=== PATIENT | male | born 1935 | race Caucasian/White ===

== ENCOUNTER 2017-07-11 16:36 | Inpatient (IN) | payer MEDICARE ==
[~2017-07-11] VITALS: Ht 177.8 cm; Wt 68.0 kg
[2017-07-11] MEDS ORDERED: Cefepime HCl 2 GM in NS 110 ML IV STA (16:37)
[2017-07-11 16:40] VITALS: BP 137/86
[2017-07-11] MEDS ORDERED: Vancomycin 1 GM in NS 275 ML IV ONE (16:45)
--- NOTE | 2017-07-11 17:02 | Emergency Room Report ---
History of Present Illness General Chief Complaint: General Complaint Source: Patient, EMS Present Illness HPI The patient was brought in by BLS from a long-term facility. Allegedly he has MRSA in the urine. The patient states he somewhat anxious but aside from that is denying any pain, fevers, nausea, vomiting, diarrhea. The patient had a Vo catheter in the past but Foleys been removed at this time. He states he is able to urinate on his own without difficulty or pain. H/O muscle weakness, DM type 2, BPH, HTN Allergies: Coded Allergies: No Known Allergies (Unverified , 07/11/17) Patient History Past Medical History: see triage record Social History Narrative [place] [facility] treatment (not full code) Reviewed Nursing Documentation: PMH: Agreed, PSxH: Agreed Nursing Documentation-PMH Past Medical History: No History, Except For Hx Hypertension: Yes - High cholesterol Hx Diabetes: Yes Hx Gastrointestinal Problems: Yes - GERD History Of Psychiatric Problem: Yes - Anxiety Hx Neurological Problems: Yes - Muscle weakness/lack of coordination Review of Systems All Other Systems: negative except mentioned in HPI Physical Exam Vital Signs Date Time Temp Pulse Resp B/P (MAP) Pulse Ox O2 Delivery O2 Flow Rate FiO2 07/11/17 16:30 98.1 87 18 146/89 97 Room Air Sp02 EP Interpretation: reviewed, normal General Appearance: no apparent distress, GCS 15, Chronically Ill Head: normocephalic, atraumatic Eyes: bilateral eye normal inspection, bilateral eye PERRL ENT: moist mucus membranes Neck: supple Respiratory: lungs clear, normal breath sounds Cardiovascular #1: regular rate, rhythm Cardiovascular #2: 2+ radial (R) Gastrointestinal: normal inspection, normal bowel sounds, non tender, no mass, non-distended, scaphoid Genitourinary: normal inspection Musculoskeletal: back normal, normal range of motion Neurologic: alert, motor strength/tone normal, DTRs symmetric, sensory intact, oriented - X2 Psychiatric: mood/affect normal Skin: normal inspection, warm/dry Medical Decision Making Diagnostic Impression: Primary Impression: UTI (urinary tract infection) Qualified Codes: N30.00 - Acute cystitis without hematuria Additional Impression: Renal insufficiency ER Course Patient sent allegedly with MRSA in the urine. Patient's needs evaluation with labs including urinalysis. The patient has multiple comorbidities and needs blood cultures and IV hydration with broad-spectrum antibiotic coverage. Labs significant for significant pyuria. Renal insufficiency, upper limit normal lactic acid. CXR chronic changes, EKG without injury. Patient is somewhat improved however needs antibiotic coverage. Admit med Dr. Tipton. Laboratory Tests Test 07/11/17 16:50 07/11/17 17:10 07/11/17 19:21 07/12/17 04:35 White Blood Count 9.5 K/UL (4.8-10.8) 8.8 K/UL (4.8-10.8) Red Blood Count 5.11 M/UL (4.70-6.10) 4.63 M/UL (4.70-6.10) L Hemoglobin 13.7 G/DL (14.2-18.0) L 12.5 G/DL (14.2-18.0) L Hematocrit 43.9 % (42.0-52.0) 40.2 % (42.0-52.0) L Mean Corpuscular Volume 86 FL (80-99) 87 FL (80-99) Mean Corpuscular Hemoglobin 26.8 PG (27.0-31.0) L 27.0 PG (27.0-31.0) Mean Corpuscular Hemoglobin Concent 31.2 G/DL (32.0-36.0) L 31.1 G/DL (32.0-36.0) L Red Cell Distribution Width 16.0 % (11.6-14.8) H 16.0 % (11.6-14.8) H Platelet Count 254 K/UL (150-450) 227 K/UL (150-450) Mean Platelet Volume 8.0 FL (6.5-10.1) 7.7 FL (6.5-10.1) Neutrophils (%) (Auto) 62.1 % (45.0-75.0) 65.1 % (45.0-75.0) Lymphocytes (%) (Auto) 23.4 % (20.0-45.0) 19.2 % (20.0-45.0) L Monocytes (%) (Auto) 9.2 % (1.0-10.0) 10.9 % (1.0-10.0) H Eosinophils (%) (Auto) 3.7 % (0.0-3.0) H 3.8 % (0.0-3.0) H Basophils (%) (Auto) 1.6 % (0.0-2.0) 1.1 % (0.0-2.0) Prothrombin Time 10.7 SEC (9.30-11.50) Prothrombin Time INR 1.0 (0.9-1.1) PTT 30 SEC (23-33) Sodium Level 145 MMOL/L (136-145) 147 MMOL/L (136-145) H Potassium Level 4.4 MMOL/L (3.5-5.1) 3.9 MMOL/L (3.5-5.1) Chloride Level 111 MMOL/L (98-107) H 112 MMOL/L (98-107) H Carbon Dioxide Level 26 MMOL/L (21-32) 28 MMOL/L (21-32) Anion Gap 8 mmol/L (5-15) 7 mmol/L (5-15) Blood Urea Nitrogen 23 mg/dL (7-18) H 20 mg/dL (7-18) H Creatinine 1.5 MG/DL (0.55-1.30) H 1.3 MG/DL (0.55-1.30) Estimate Glomerular Filtration Rate mL/min (>60) mL/min (>60) Glucose Level 123 MG/DL (74-106) H 82 MG/DL (74-106) Lactic Acid Level 2.10 mmol/L (0.66-2.22) 2.10 mmol/L (0.66-2.22) Calcium Level 9.1 MG/DL (8.5-10.1) 8.9 MG/DL (8.5-10.1) Total Bilirubin 0.3 MG/DL (0.2-1.0) 0.4 MG/DL (0.2-1.0) Aspartate Amino Transferase (AST) 17 U/L (15-37) 11 U/L (15-37) L Alanine Aminotransferase (ALT) 21 U/L (12-78) 16 U/L (12-78) Alkaline Phosphatase 77 U/L (46-116) 71 U/L (46-116) Total Creatine Kinase 25 U/L (26-308) L Troponin I 0.020 ng/mL (0.000-0.056) Pro-B-Type Natriuretic Peptide 3199 pg/mL (0-125) H Total Protein 6.8 G/DL (6.4-8.2) 6.3 G/DL (6.4-8.2) L Albumin 3.0 G/DL (3.4-5.0) L 2.7 G/DL (3.4-5.0) L Globulin 3.8 g/dL 3.6 g/dL Albumin/Globulin Ratio 0.8 (1.0-2.7) L 0.8 (1.0-2.7) L Urine Color Pale yellow Urine Appearance Cloudy Urine pH 6 (4.5-8.0) Urine Specific [place] 1.010 (1.005-1.035) Urine Protein 2+ (NEGATIVE) H Urine Glucose (UA) Negative (NEGATIVE) Urine Ketones Negative (NEGATIVE) Urine Occult Blood 5+ (NEGATIVE) H Urine Nitrite Positive (NEGATIVE) H Urine Bilirubin Negative (NEGATIVE) Urine Urobilinogen Normal MG/DL (0.0-1.0) Urine Leukocyte Esterase 3+ (NEGATIVE) H Urine RBC 10-15 /HPF (0 - 0) H Urine WBC Tntc /HPF (0 - 0) H Urine Squamous Epithelial Cells None /LPF (NONE/OCC) Urine Bacteria Moderate /HPF (NONE) H Triglycerides Level 43 MG/DL (0-200) Cholesterol Level 107 MG/DL (< 200) LDL Cholesterol 56 mg/dL (<100) HDL Cholesterol 42 MG/DL (40-60) Cholesterol/HDL Ratio 2.5 (3.3-4.4) L Thyroid Stimulating Hormone (TSH) 1.793 uiU/mL (0.360-3.740) EKG Diagnostic Results Rate: normal Rhythm: NSR ST Segments: no acute changes Rhythm Strip Diag. Results EP Interpretation: yes Rhythm: NSR, no PVC's, no ectopy Chest X-Ray Diagnostic Results Chest X-Ray Diagnostic Results : Chest X-Ray Ordered: Yes # of Views/Limited/Complete: 1 View Indication: Other Interpretation: no consolidation, no effusion, no pneumothorax, no acute cardiopulmonary disease Impression: No acute disease Electronically Signed by: Electronically signed by Zeke Arthur MD Status: improved Disposition: ADMITTED INPATIENT Condition: Serious Zeke Arthur M.D. Jul 11, 2017 17:02
[2017-07-11 17:18] LABS: BASOPHILS % (AUTO) 1.6 % (0.0-2.0); EOSINOPHILS % (AUTO) 3.7 % (0.0-3.0); LYMPHOCYTES % (AUTO) 23.4 % (20.0-45.0); MEAN CORPUSCULAR HEMOGLOBIN 26.8 PG (27.0-31.0); MEAN CORPUSCULAR HGB CONC 31.2 G/DL (32.0-36.0); MEAN CORPUSCULAR VOLUME 86 FL (80-99); MONOCYTES % (AUTO) 9.2 % (1.0-10.0); NEUTROPHILS % (AUTO) 62.1 % (45.0-75.0); PLATELET COUNT 254 K/UL (150-450); RED BLOOD COUNT 5.11 M/UL (4.70-6.10); WHITE BLOOD COUNT 9.5 K/UL (4.8-10.8)
[2017-07-11] MEDS ORDERED: Cefepime 2gm ONE (17:20)
[2017-07-11] MEDS ORDERED: PANTOPRAZOLE SO40 MG ORAL (17:25)
[2017-07-11] MEDS ORDERED: MILK OF MA400 MG/51 ORAL (17:25)
[2017-07-11] MEDS ORDERED: METFORMIN HCL500 M1 ORAL (17:25)
[2017-07-11] MEDS ORDERED: AVODART0.5 MG ORAL (17:25)
[2017-07-11] MEDS ORDERED: ATORVASTATIN CA40 MG ORAL (17:25)
[2017-07-11] MEDS ORDERED: TAMSULOSIN HCL0.4 MG ORAL (17:25)
[2017-07-11] MEDS ORDERED: ATIVAN0.5 MG ORAL (17:25)
[2017-07-11] MEDS ORDERED: BISCOLAX10 MG RC (17:25)
[2017-07-11] MEDS ORDERED: MULTIVITAMINS1 EAC8 ORAL (17:25)
[2017-07-11] MEDS ORDERED: DEX4 GLUCO15 GM/59 M PO (17:25)
[2017-07-11] MEDS ORDERED: COLACE100 MG ORAL (17:25)
[2017-07-11] MEDS ORDERED: ELIQUIS5 MG PO (17:25)
[2017-07-11] MEDS ORDERED: MIRALAX17 G2 ORAL (17:25)
[2017-07-11 17:26] LABS: APPEARANCE,URINE CLOUDY; KETONES,URINE NEGATIVE (NEGATIVE); LEUKOCYTE ESTERASE ,URINE 3+ (NEGATIVE); NITRITE,URINE POSITIVE (NEGATIVE); PH,URINE 6 (4.5-8.0); PROTEIN,URINE 2+ (NEGATIVE); UROBILINOGEN,URINE NORMAL MG/DL (0.0-1.0)
[2017-07-11 17:38] LABS: PROTHROMBIN TIME 10.7 SEC (9.30-11.50)
[2017-07-11 17:40] LABS: BACTERIA,URINE MODERATE /HPF; WBC,URINE TNTC /HPF (0 - 0)
[2017-07-11 17:41] LABS: ALANINE AMINOTRANSFERASE 21 U/L (12-78); ALBUMIN/GLOBULIN RATIO 0.8 (1.0-2.7); ANION GAP 8 mmol/L (5-15); ASPARTATE AMINO TRANSFERASE 17 U/L (15-37); CALCIUM 9.1 MG/DL (8.5-10.1); CARBON DIOXIDE 26 MMOL/L (21-32); CHLORIDE 111 MMOL/L (98-107); CREATININE 1.5 MG/DL (0.55-1.30); POTASSIUM 4.4 MMOL/L (3.5-5.1); SODIUM 145 MMOL/L (136-145); TOTAL PROTEIN 6.8 G/DL (6.4-8.2)
[2017-07-11 18:17] LABS: REFLEX LACTIC ACID YES OR NO YES
[2017-07-11 18:20] VITALS: BP 138/81
[2017-07-11] MEDS ORDERED: ACETAMINOPHEN325 M1 ORAL (18:35)
[2017-07-11] MEDS ORDERED: FLEET ENEMA133 ML RECTAL (18:35)
[2017-07-11] MEDS ORDERED: VALIUM5 MG ORAL (18:35)
[2017-07-11] MEDS ORDERED: VITAMIN C500 M1 ORAL (18:35)
[2017-07-11] MEDS ORDERED: GLUCAGON HCL1 MG IM (18:51)
[2017-07-11 19:30] VITALS: BP 127/80
[2017-07-11] MEDS ORDERED: Vancomycin 1gm inj IVPB ONE (20:03)
--- NOTE | 2017-07-11 20:53 | Infectious Diseases Prog Note ---
Assessment/Plan Problems: (1) Sepsis due to urinary tract infection Assessment & Plan: will send blood culture and urine culture, and start vancomycin with cefepime empirically (2) UTI (urinary tract infection) Assessment & Plan: with MRSA, will start vancomycin pending culture (3) Renal insufficiency Assessment & Plan: recommend hydration, and close monitor of renal function Subjective Allergies: Coded Allergies: No Known Allergies (Unverified , 07/11/17) Objective Vital Signs Last 24 Hour Vital Signs Date Time Temp Pulse Resp B/P (MAP) Pulse Ox O2 Delivery O2 Flow Rate FiO2 07/11/17 20:30 80 20 146/70 100 Room Air 07/11/17 18:20 87 16 138/81 99 Room Air 07/11/17 16:40 84 16 137/86 100 Room Air 07/11/17 16:30 98.1 87 18 146/89 97 Room Air Height (Feet): 5 Height (Inches): 10.00 Weight (Pounds): 150 Laboratory Tests Test 07/11/17 16:50 07/11/17 17:10 07/11/17 19:21 White Blood Count 9.5 K/UL (4.8-10.8) Red Blood Count 5.11 M/UL (4.70-6.10) Hemoglobin 13.7 G/DL (14.2-18.0) L Hematocrit 43.9 % (42.0-52.0) Mean Corpuscular Volume 86 FL (80-99) Mean Corpuscular Hemoglobin 26.8 PG (27.0-31.0) L Mean Corpuscular Hemoglobin Concent 31.2 G/DL (32.0-36.0) L Red Cell Distribution Width 16.0 % (11.6-14.8) H Platelet Count 254 K/UL (150-450) Mean Platelet Volume 8.0 FL (6.5-10.1) Neutrophils (%) (Auto) 62.1 % (45.0-75.0) Lymphocytes (%) (Auto) 23.4 % (20.0-45.0) Monocytes (%) (Auto) 9.2 % (1.0-10.0) Eosinophils (%) (Auto) 3.7 % (0.0-3.0) H Basophils (%) (Auto) 1.6 % (0.0-2.0) Prothrombin Time 10.7 SEC (9.30-11.50) Prothromb Time International Ratio 1.0 (0.9-1.1) Activated Partial Thromboplast Time 30 SEC (23-33) Sodium Level 145 MMOL/L (136-145) Potassium Level 4.4 MMOL/L (3.5-5.1) Chloride Level 111 MMOL/L (98-107) H Carbon Dioxide Level 26 MMOL/L (21-32) Anion Gap 8 mmol/L (5-15) Blood Urea Nitrogen 23 mg/dL (7-18) H Creatinine 1.5 MG/DL (0.55-1.30) H Estimat Glomerular Filtration Rate mL/min (>60) Glucose Level 123 MG/DL (74-106) H Lactic Acid Level 2.10 mmol/L (0.66-2.22) 2.10 mmol/L (0.66-2.22) Calcium Level 9.1 MG/DL (8.5-10.1) Total Bilirubin 0.3 MG/DL (0.2-1.0) Aspartate Amino Transf (AST/SGOT) 17 U/L (15-37) Alanine Aminotransferase (ALT/SGPT) 21 U/L (12-78) Alkaline Phosphatase 77 U/L (46-116) Total Creatine Kinase 25 U/L (26-308) L Troponin I 0.020 ng/mL (0.000-0.056) Pro-B-Type Natriuretic Peptide 3199 pg/mL (0-125) H Total Protein 6.8 G/DL (6.4-8.2) Albumin 3.0 G/DL (3.4-5.0) L Globulin 3.8 g/dL Albumin/Globulin Ratio 0.8 (1.0-2.7) L Urine Color Pale yellow Urine Appearance Cloudy Urine pH 6 (4.5-8.0) Urine Specific [place] 1.010 (1.005-1.035) Urine Protein 2+ (NEGATIVE) H Urine Glucose (UA) Negative (NEGATIVE) Urine Ketones Negative (NEGATIVE) Urine Occult Blood 5+ (NEGATIVE) H Urine Nitrite Positive (NEGATIVE) H Urine Bilirubin Negative (NEGATIVE) Urine Urobilinogen Normal MG/DL (0.0-1.0) Urine Leukocyte Esterase 3+ (NEGATIVE) H Urine RBC 10-15 /HPF (0 - 0) H Urine WBC Tntc /HPF (0 - 0) H Urine Squamous Epithelial Cells None /LPF (NONE/OCC) Urine Bacteria Moderate /HPF (NONE) H Current Medications Medications (Trade) Dose Ordered Sig/Amaya Route PRN Reason Start Time Stop Time Status Last Admin Dose Admin Sodium Chloride 1,000 ml @ 300 mls/hr Q3H20M IV 07/11/17 16:45 08/10/17 16:44 07/11/17 19:44 Margi Haque M.D. Jul 11, 2017 20:53
[2017-07-11] MEDS ORDERED: Miralax 17gm pkt ORAL PRN (21:15)
[2017-07-11] MEDS ORDERED: LORazepam Inj 2mg/ml 1ml IV PRN (21:15)
[2017-07-11] MEDS ORDERED: Zolpidem 5mg tab ORAL PRN (21:15)
[2017-07-11] MEDS ORDERED: Mylanta II UD 30ml ORAL PRN (21:15)
[2017-07-11 22:00] VITALS: BP 127/65
[2017-07-11] MEDS: Tamsulosin 0.4mg cap ORAL SCH (22:55)
[2017-07-12] VITALS: BP 132/69
[2017-07-12 04:00] VITALS: BP 118/69
[2017-07-12 08:00] VITALS: BP 131/71
[2017-07-12 08:01] LABS: BASOPHILS % (AUTO) 1.1 % (0.0-2.0); EOSINOPHILS % (AUTO) 3.8 % (0.0-3.0); LYMPHOCYTES % (AUTO) 19.2 % (20.0-45.0); MEAN CORPUSCULAR HGB CONC 31.1 G/DL (32.0-36.0); MEAN CORPUSCULAR VOLUME 87 FL (80-99); MEAN PLATELET VOLUME 7.7 FL (6.5-10.1); MONOCYTES % (AUTO) 10.9 % (1.0-10.0); NEUTROPHILS % (AUTO) 65.1 % (45.0-75.0); PLATELET COUNT 227 K/UL (150-450); RED BLOOD COUNT 4.63 M/UL (4.70-6.10); WHITE BLOOD COUNT 8.8 K/UL (4.8-10.8)
[2017-07-12 08:02] LABS: ALANINE AMINOTRANSFERASE 16 U/L (12-78); ALBUMIN/GLOBULIN RATIO 0.8 (1.0-2.7); ANION GAP 7 mmol/L (5-15); ASPARTATE AMINO TRANSFERASE 11 U/L (15-37); CALCIUM 8.9 MG/DL (8.5-10.1); CARBON DIOXIDE 28 MMOL/L (21-32); CHLORIDE 112 MMOL/L (98-107); CREATININE 1.3 MG/DL (0.55-1.30); POTASSIUM 3.9 MMOL/L (3.5-5.1); SODIUM 147 MMOL/L (136-145); TOTAL PROTEIN 6.3 G/DL (6.4-8.2)
[2017-07-12 08:10] LABS: CHOLESTEROL 107 MG/DL (< 200); CHOLESTEROL/HDL RATIO 2.5 (3.3-4.4); THYROID STIMULATING HORMONE 1.793 uiU/mL (0.360-3.740)
[2017-07-12 12:00] VITALS: BP 128/72
--- NOTE | 2017-07-12 12:19 | Diagnostic Imaging Report ---
Indication: Chest pain Comparison: None A single view chest radiograph was obtained. Findings: No definite infiltrate or pulmonary vascular congestion identified. There is scarring in the lung apices. The heart is enlarged. The aorta is mildly enlarged consistent with atherosclerotic vascular disease. The bones are osteopenic. Impression: No acute disease
[2017-07-12] MEDS: Vancomycin 750mg/NS 250ml 250 ML IVPB SCH (15:09)
--- NOTE | 2017-07-12 15:53 | Infectious Diseases Prog Note ---
Assessment/Plan Problems: (1) Sepsis due to urinary tract infection Assessment & Plan: await blood culture and urine culture, and continue vancomycin with cefepime empirically (2) UTI (urinary tract infection) Assessment & Plan: with MRSA, on vancomycin pending culture (3) Renal insufficiency Assessment & Plan: recommend hydration, and close monitor of renal function Subjective Constitutional: Reports: no symptoms HEENT: Reports: no symptoms Respiratory: Reports: no symptoms Breasts: Reports: no symptoms Cardiovascular: Reports: no symptoms Gastrointestinal/Abdominal: Reports: no symptoms Genitourinary: Reports: no symptoms Neurologic: Reports: no symptoms Psychiatric: Reports: no symptoms Skin: Reports: no symptoms Endocrine: Reports: no symptoms Hematologic: Reports: no symptoms Musculoskeletal: Reports: no symptoms Allergies: Coded Allergies: No Known Allergies (Unverified , 07/11/17) Objective Vital Signs Last 24 Hour Vital Signs Date Time Temp Pulse Resp B/P (MAP) Pulse Ox O2 Delivery O2 Flow Rate FiO2 07/12/17 12:00 97.0 79 18 128/72 97 Room Air 07/12/17 08:00 96.6 78 20 131/71 96 Room Air 07/12/17 04:00 97.0 77 21 118/69 96 Room Air 07/12/17 00:00 97.3 72 20 132/69 98 Room Air 07/11/17 22:00 97.0 80 20 127/65 99 Room Air 07/11/17 20:30 80 20 146/70 100 Room Air 07/11/17 19:30 98.0 80 20 127/80 99 Room Air 07/11/17 18:20 87 16 138/81 99 Room Air 07/11/17 16:40 84 16 137/86 100 Room Air 07/11/17 16:30 98.1 87 18 146/89 97 Room Air Height (Feet): 5 Height (Inches): 10.00 Weight (Pounds): 150 General Appearance: WD/WN, no acute distress HEENT: normocephalic, atraumatic, anicteric, mucous membranes moist, EOMI, pharynx normal, supple, no JVD Respiratory/Chest: chest wall non-tender, lungs clear, normal breath sounds, no respiratory distress, no accessory muscle use, respiratory distress Cardiovascular: normal peripheral pulses, normal rate, regular rhythm, no gallop/murmur, no JVD Abdomen: normal bowel sounds, soft, non tender, no organomegaly, non distended , no mass, no scars Extremities: no cyanosis, no clubbing Skin: no rash, no lesions, no ulcers Neurologic/Psychiatric: alert, responsive Lymphatic: no neck adenopathy, no groin adenopathy Microbiology Date/Time Source Procedure Growth Status 07/11/17 17:10 Urine,Clean Catch Urine Culture - Preliminary Resulted Laboratory Tests Test 07/11/17 16:50 07/11/17 17:10 07/11/17 19:21 07/12/17 04:35 White Blood Count 9.5 K/UL (4.8-10.8) 8.8 K/UL (4.8-10.8) Red Blood Count 5.11 M/UL (4.70-6.10) 4.63 M/UL (4.70-6.10) L Hemoglobin 13.7 G/DL (14.2-18.0) L 12.5 G/DL (14.2-18.0) L Hematocrit 43.9 % (42.0-52.0) 40.2 % (42.0-52.0) L Mean Corpuscular Volume 86 FL (80-99) 87 FL (80-99) Mean Corpuscular Hemoglobin 26.8 PG (27.0-31.0) L 27.0 PG (27.0-31.0) Mean Corpuscular Hemoglobin Concent 31.2 G/DL (32.0-36.0) L 31.1 G/DL (32.0-36.0) L Red Cell Distribution Width 16.0 % (11.6-14.8) H 16.0 % (11.6-14.8) H Platelet Count 254 K/UL (150-450) 227 K/UL (150-450) Mean Platelet Volume 8.0 FL (6.5-10.1) 7.7 FL (6.5-10.1) Neutrophils (%) (Auto) 62.1 % (45.0-75.0) 65.1 % (45.0-75.0) Lymphocytes (%) (Auto) 23.4 % (20.0-45.0) 19.2 % (20.0-45.0) L Monocytes (%) (Auto) 9.2 % (1.0-10.0) 10.9 % (1.0-10.0) H Eosinophils (%) (Auto) 3.7 % (0.0-3.0) H 3.8 % (0.0-3.0) H Basophils (%) (Auto) 1.6 % (0.0-2.0) 1.1 % (0.0-2.0) Prothrombin Time 10.7 SEC (9.30-11.50) Prothromb Time International Ratio 1.0 (0.9-1.1) Activated Partial Thromboplast Time 30 SEC (23-33) Sodium Level 145 MMOL/L (136-145) 147 MMOL/L (136-145) H Potassium Level 4.4 MMOL/L (3.5-5.1) 3.9 MMOL/L (3.5-5.1) Chloride Level 111 MMOL/L (98-107) H 112 MMOL/L (98-107) H Carbon Dioxide Level 26 MMOL/L (21-32) 28 MMOL/L (21-32) Anion Gap 8 mmol/L (5-15) 7 mmol/L (5-15) Blood Urea Nitrogen 23 mg/dL (7-18) H 20 mg/dL (7-18) H Creatinine 1.5 MG/DL (0.55-1.30) H 1.3 MG/DL (0.55-1.30) Estimat Glomerular Filtration Rate mL/min (>60) mL/min (>60) Glucose Level 123 MG/DL (74-106) H 82 MG/DL (74-106) Lactic Acid Level 2.10 mmol/L (0.66-2.22) 2.10 mmol/L (0.66-2.22) Calcium Level 9.1 MG/DL (8.5-10.1) 8.9 MG/DL (8.5-10.1) Total Bilirubin 0.3 MG/DL (0.2-1.0) 0.4 MG/DL (0.2-1.0) Aspartate Amino Transf (AST/SGOT) 17 U/L (15-37) 11 U/L (15-37) L Alanine Aminotransferase (ALT/SGPT) 21 U/L (12-78) 16 U/L (12-78) Alkaline Phosphatase 77 U/L (46-116) 71 U/L (46-116) Total Creatine Kinase 25 U/L (26-308) L Troponin I 0.020 ng/mL (0.000-0.056) Pro-B-Type Natriuretic Peptide 3199 pg/mL (0-125) H Total Protein 6.8 G/DL (6.4-8.2) 6.3 G/DL (6.4-8.2) L Albumin 3.0 G/DL (3.4-5.0) L 2.7 G/DL (3.4-5.0) L Globulin 3.8 g/dL 3.6 g/dL Albumin/Globulin Ratio 0.8 (1.0-2.7) L 0.8 (1.0-2.7) L Urine Color Pale yellow Urine Appearance Cloudy Urine pH 6 (4.5-8.0) Urine Specific [place] 1.010 (1.005-1.035) Urine Protein 2+ (NEGATIVE) H Urine Glucose (UA) Negative (NEGATIVE) Urine Ketones Negative (NEGATIVE) Urine Occult Blood 5+ (NEGATIVE) H Urine Nitrite Positive (NEGATIVE) H Urine Bilirubin Negative (NEGATIVE) Urine Urobilinogen Normal MG/DL (0.0-1.0) Urine Leukocyte Esterase 3+ (NEGATIVE) H Urine RBC 10-15 /HPF (0 - 0) H Urine WBC Tntc /HPF (0 - 0) H Urine Squamous Epithelial Cells None /LPF (NONE/OCC) Urine Bacteria Moderate /HPF (NONE) H Triglycerides Level 43 MG/DL (0-200) Cholesterol Level 107 MG/DL (< 200) LDL Cholesterol 56 mg/dL (<100) HDL Cholesterol 42 MG/DL (40-60) Cholesterol/HDL Ratio 2.5 (3.3-4.4) L Thyroid Stimulating Hormone (TSH) 1.793 uiU/mL (0.360-3.740) Current Medications Medications (Trade) Dose Ordered Sig/Amaya Route PRN Reason Start Time Stop Time Status Last Admin Dose Admin Acetaminophen (Tylenol) 650 mg Q4H PRN ORAL fever 07/11/17 21:15 08/10/17 21:14 Al Hydroxide/Mg Hydroxide (Mylanta II) 30 ml Q6H PRN ORAL dyspepsia 07/11/17 21:15 12/5/17 21:14 Cefepime HCl 1 gm/ Dextrose 55 ml @ 110 mls/hr Q24H IVPB 07/12/17 16:30 07/19/17 16:29 Dextrose (Dextrose 50%) STAT PRN IV Hypoglycemia 07/11/17 21:15 08/10/17 21:14 Diazepam (Valium) 5 mg HSPRN PRN ORAL Anxiety at Bedtime 07/11/17 21:30 07/18/17 20:59 07/12/17 00:35 Lorazepam (Ativan 2mg/ml 1ml) 0.5 mg Q4H PRN IV For Anxiety 07/11/17 21:15 07/18/17 21:14 Ondansetron HCl (Zofran) 4 mg Q6H PRN IVP Nausea & Vomiting 07/11/17 21:15 08/10/17 21:14 Polyethylene Glycol (Miralax) 17 gm HSPRN PRN ORAL Constipation 07/11/17 21:15 08/10/17 21:14 Tamsulosin HCl (Flomax) 0.4 mg BEDTIME ORAL 07/11/17 22:00 08/10/17 21:59 07/11/17 22:55 Vancomycin HCl (Vanco rx to dose) 1 ea DAILY PRN MISC Per rx protocol 07/11/17 21:00 08/10/17 20:59 Vancomycin/Sodium Chloride 250 ml @ 166.667 mls/hr DAILY@1600 IVPB 07/12/17 16:00 07/17/17 15:59 07/12/17 15:09 Zolpidem Tartrate (Ambien) 5 mg HSPRN PRN ORAL Insomnia 07/11/17 21:15 07/18/17 21:14 Margi Haque M.D. Jul 12, 2017 15:53
[2017-07-12 15:55] VITALS: BP 138/76
[2017-07-12] MEDS: Cefepime HCl 1 GM in D5W 55 ML IVPB SCH (16:54)
--- NOTE | 2017-07-12 17:12 | Consultation ---
History of Present Illness General Date patient seen: Jul 12, 2017 Chief Complaint: General Complaint Referring physician: Dr. Tipton Reason for Consultation: inpatient management Present Illness HPI 81 year old male with hx of was brought in by BLS from a long term facility. Allegedly he has MRSA of the urine. The patient states he somewhat anxious but aside from that is denying any pain, fevers, nausea, vomiting, diarrhea. The patient had a Vo catheter in the past but Foleys been removed at this time. He states he is able to urinate on his own without difficulty. Allergies: Coded Allergies: No Known Allergies (Unverified , 07/11/17) Medication History Scheduled Apixaban (Eliquis), 5 MG PO BID, (Reported) Ascorbic Acid* (Vitamin C*), 500 MG ORAL DAILY, (Reported) Atorvastatin Calcium* (Atorvastatin Calcium*), 40 MG ORAL BEDTIME, (Reported) Bisacodyl (Biscolax), 10 MG RC PRN, (Reported) Dextrose (Dex4 Glucose), 15 GM PO PRN, (Reported) Docusate Sodium* (Colace*), 100 MG ORAL DAILY, (Reported) Dutasteride (Avodart), 0.5 MG ORAL DAILY, (Reported) Magnesium Hydroxide* (Milk Of Magnesia*), 30 ML ORAL PRN, (Reported) Metformin Hcl* (Metformin Hcl*), 500 MG ORAL DAILY, (Reported) Multivitamin With Minerals (Multivitamins With Minerals*), 1 TAB ORAL DAILY, ( Reported) Pantoprazole* (Pantoprazole*), 40 MG ORAL DAILY, (Reported) Polyethylene Glycol 3350* (Miralax*), 17 GM ORAL DAILY, (Reported) Tamsulosin Hcl (Tamsulosin Hcl*), 0.4 MG ORAL BEDTIME, (Reported) Scheduled PRN Acetaminophen* (Acetaminophen 325MG Tablet*), 650 MG ORAL Q4H PRN for For Pain, (Reported) Diazepam* (Valium*), 5 MG ORAL BEDTIME PRN for For Anxiety, (Reported) Glucagon HCl (Glucagon HCl), 1 UNIT IM PRN PRN for Hypoglycemia, (Reported) Na Phos,M-B/Na Phos,Di-Ba* (Fleet Enema*), 133 ML RECTAL EVERY OTHER DAY PRN for Constipation, (Reported) Discontinued Medications Lorazepam* (Ativan*), 0.5 MG ORAL prn., (Reported) Discontinued Reason: discontinued med Patient History Healthcare decision maker JI ALVARADOART Resuscitation status Full Code Advanced Directive on File Review of Systems All Other Systems: negative except mentioned in HPI Physical Exam General Appearance: WD/WN Lines, tubes and drains: peripheral HEENT: normocephalic, atraumatic Neck: non-tender, normal alignment Respiratory/Chest: chest wall non-tender, lungs clear Cardiovascular/Chest: normal peripheral pulses Abdomen: normal bowel sounds, non tender Genitourinary/Rectal: normal genital exam Extremities: normal range of motion, non-tender 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 normal Lymphatic: anterior cervical Last 24 Hour Vital Signs Date Time Temp Pulse Resp B/P (MAP) Pulse Ox O2 Delivery O2 Flow Rate FiO2 07/12/17 15:55 97.7 70 21 138/76 97 Room Air 07/12/17 12:00 97.0 79 18 128/72 97 Room Air 07/12/17 08:00 96.6 78 20 131/71 96 Room Air 07/12/17 04:00 97.0 77 21 118/69 96 Room Air 07/12/17 00:00 97.3 72 20 132/69 98 Room Air 07/11/17 22:00 97.0 80 20 127/65 99 Room Air 07/11/17 20:30 80 20 146/70 100 Room Air 07/11/17 19:30 98.0 80 20 127/80 99 Room Air 07/11/17 18:20 87 16 138/81 99 Room Air Intake and Output 07/12/17 07/13/17 19:00 07:00 Intake Total 800 ml Balance 800 ml Intake Oral 800 ml # Voids 6 Laboratory Tests Test 07/11/17 17:10 07/11/17 19:21 07/12/17 04:35 Urine Color Pale yellow Urine Appearance Cloudy Urine pH 6 (4.5-8.0) Urine Specific [place] 1.010 (1.005-1.035) Urine Protein 2+ (NEGATIVE) H Urine Glucose (UA) Negative (NEGATIVE) Urine Ketones Negative (NEGATIVE) Urine Occult Blood 5+ (NEGATIVE) H Urine Nitrite Positive (NEGATIVE) H Urine Bilirubin Negative (NEGATIVE) Urine Urobilinogen Normal MG/DL (0.0-1.0) Urine Leukocyte Esterase 3+ (NEGATIVE) H Urine RBC 10-15 /HPF (0 - 0) H Urine WBC Tntc /HPF (0 - 0) H Urine Squamous Epithelial Cells None /LPF (NONE/OCC) Urine Bacteria Moderate /HPF (NONE) H Lactic Acid Level 2.10 mmol/L (0.66-2.22) White Blood Count 8.8 K/UL (4.8-10.8) Red Blood Count 4.63 M/UL (4.70-6.10) L Hemoglobin 12.5 G/DL (14.2-18.0) L Hematocrit 40.2 % (42.0-52.0) L Mean Corpuscular Volume 87 FL (80-99) Mean Corpuscular Hemoglobin 27.0 PG (27.0-31.0) Mean Corpuscular Hemoglobin Concent 31.1 G/DL (32.0-36.0) L Red Cell Distribution Width 16.0 % (11.6-14.8) H Platelet Count 227 K/UL (150-450) Mean Platelet Volume 7.7 FL (6.5-10.1) Neutrophils (%) (Auto) 65.1 % (45.0-75.0) Lymphocytes (%) (Auto) 19.2 % (20.0-45.0) L Monocytes (%) (Auto) 10.9 % (1.0-10.0) H Eosinophils (%) (Auto) 3.8 % (0.0-3.0) H Basophils (%) (Auto) 1.1 % (0.0-2.0) Sodium Level 147 MMOL/L (136-145) H Potassium Level 3.9 MMOL/L (3.5-5.1) Chloride Level 112 MMOL/L (98-107) H Carbon Dioxide Level 28 MMOL/L (21-32) Anion Gap 7 mmol/L (5-15) Blood Urea Nitrogen 20 mg/dL (7-18) H Creatinine 1.3 MG/DL (0.55-1.30) Estimat Glomerular Filtration Rate mL/min (>60) Glucose Level 82 MG/DL (74-106) Calcium Level 8.9 MG/DL (8.5-10.1) Total Bilirubin 0.4 MG/DL (0.2-1.0) Aspartate Amino Transf (AST/SGOT) 11 U/L (15-37) L Alanine Aminotransferase (ALT/SGPT) 16 U/L (12-78) Alkaline Phosphatase 71 U/L (46-116) Total Protein 6.3 G/DL (6.4-8.2) L Albumin 2.7 G/DL (3.4-5.0) L Globulin 3.6 g/dL Albumin/Globulin Ratio 0.8 (1.0-2.7) L Triglycerides Level 43 MG/DL (0-200) Cholesterol Level 107 MG/DL (< 200) LDL Cholesterol 56 mg/dL (<100) HDL Cholesterol 42 MG/DL (40-60) Cholesterol/HDL Ratio 2.5 (3.3-4.4) L Thyroid Stimulating Hormone (TSH) 1.793 uiU/mL (0.360-3.740) Microbiology Date/Time Source Procedure Growth Status 07/11/17 17:10 Urine,Clean Catch Urine Culture - Preliminary Resulted Height (Feet): 5 Height (Inches): 10.00 Weight (Pounds): 150 Medications Current Medications Medications (Trade) Dose Ordered Sig/Amaya Route PRN Reason Start Time Stop Time Status Last Admin Dose Admin Acetaminophen (Tylenol) 650 mg Q4H PRN ORAL fever 07/11/17 21:15 08/10/17 21:14 Al Hydroxide/Mg Hydroxide (Mylanta II) 30 ml Q6H PRN ORAL dyspepsia 07/11/17 21:15 08/10/17 21:14 Cefepime HCl 1 gm/ Dextrose 55 ml @ 110 mls/hr Q24H IVPB 07/12/17 16:30 07/19/17 16:29 07/12/17 16:54 Dextrose (Dextrose 50%) STAT PRN IV Hypoglycemia 07/11/17 21:15 08/10/17 21:14 Diazepam (Valium) 5 mg HSPRN PRN ORAL Anxiety at Bedtime 07/11/17 21:30 07/18/17 20:59 07/12/17 00:35 Lorazepam (Ativan 2mg/ml 1ml) 0.5 mg Q4H PRN IV For Anxiety 07/11/17 21:15 07/18/17 21:14 Ondansetron HCl (Zofran) 4 mg Q6H PRN IVP Nausea & Vomiting 07/11/17 21:15 08/10/17 21:14 Polyethylene Glycol (Miralax) 17 gm HSPRN PRN ORAL Constipation 07/11/17 21:15 08/10/17 21:14 Tamsulosin HCl (Flomax) 0.4 mg BEDTIME ORAL 07/11/17 22:00 08/10/17 21:59 07/11/17 22:55 Vancomycin HCl (Vanco rx to dose) 1 ea DAILY PRN MISC Per rx protocol 07/11/17 21:00 08/10/17 20:59 Vancomycin/Sodium Chloride 250 ml @ 166.667 mls/hr DAILY@1600 IVPB 07/12/17 16:00 07/17/17 15:59 07/12/17 15:09 Zolpidem Tartrate (Ambien) 5 mg HSPRN PRN ORAL Insomnia 07/11/17 21:15 07/18/17 21:14 Assessment/Plan Problem List: (1) Sepsis due to urinary tract infection ICD Codes: A41.9 - Sepsis, unspecified organism; N39.0 - Urinary tract infection, site not specified SNOMED: 880544395 (2) UTI (urinary tract infection) ICD Codes: N39.0 - Urinary tract infection, site not specified SNOMED: 98411216 (3) Diabetes mellitus ICD Codes: E11.9 - Type 2 diabetes mellitus without complications SNOMED: 36834243 (4) Hypertension ICD Codes: I10 - Essential (primary) hypertension SNOMED: 02377523 Assessment/Plan check cutlrues IV abx IV fluids check electrolytes sliding scale, diabetic diet REGINALDO BARRIOS Jul 12, 2017 17:12
--- NOTE | 2017-07-12 19:45 | Consultation ---
DATE OF CONSULTATION: 07/12/2017 INFECTIOUS DISEASE CONSULTATION CONSULTING PHYSICIAN: Margi Haque M.D. REQUESTING PHYSICIAN: Chris Tipton D.O. REASON FOR CONSULTATION: Methicillin resistant Staphylococcus aureus infection of the urine, possible sepsis. Recommendation for antibiotics treatment. HISTORY OF PRESENT ILLNESS: The patient is an 81-year-old male with past medical history of GERD, anxiety, muscle weakness, hyperlipidemia, and diabetes, who was sent from [facility] due to MRSA infection of the urine. The patient had surgical resection of his prostate a month ago by Dr. Rosales, his urologist at [facility] about a month ago and after that surgery he did not develop any obstructive symptoms but lately over the last couple of days he has been having some dysuria with difficulty urination so urinalysis and culture was done at the [facility], which showed evidence of MRSA growth in his urine so he was sent to [facility] for further evaluation and management. The patient denied any pain, fever, nausea, vomiting, or diarrhea. He had a Vo catheter before but his Vo was removed and he was able to urinate on his own without any difficulties. In the emergency room, his urinalysis showed evidence of urine infection so I was consulted by the primary provider for antibiotics treatment and further management. As of note, the patient is poor historian, demented, cannot provide good history. History was mainly obtained from the medical record and nursing staff. PAST MEDICAL HISTORY: Significant for hypertension, hyperlipidemia, diabetes, GERD, anxiety, and muscle weakness. PAST SURGICAL HISTORY: He had prostate resection by [facility] a month ago. ALLERGIES: No known drug allergy. MEDICATIONS: The patient received vancomycin and cefepime in the emergency room. For the rest of his medications, please refer to MAR. SOCIAL HISTORY: He lives at [facility]. No recent drugs, tobacco, or alcohol. REVIEW OF SYSTEMS: Unable to obtain at this point. The patient is a poor historian. PHYSICAL EXAMINATION: VITAL SIGNS: Temperature 97, pulse 79, respirations 18, blood pressure 128/72, and saturation 97% on room air. GENERAL: An elderly male, up in bed, awake, alert, and coherent, not in acute distress. HEENT: Normocephalic and atraumatic. Pupils are reactive to light. Pale sclerae. Moist oral mucosa. No exudate or thrush. NECK: Supple. No lymphadenopathy. CARDIOVASCULAR: Regular rate and rhythm. No murmur or gallop. LUNGS: Clear bilaterally. No wheezing or rhonchi. ABDOMEN: Soft, nontender, and nondistended. Positive bowel sounds. No hepatosplenomegaly. No ascites. EXTREMITIES: No edema or cyanosis. LABORATORY DATA: Showed white count of 9.5, hemoglobin of 13.7, and platelet count of 254. BUN of 23 and creatinine of 1.5. AST of 17 and ALT of 21. Urinalysis showed positive nitrite, +3 leukocyte esterase, WBC too numerous to count, and moderate amount of bacteria. IMAGING STUDIES: Chest x-ray showed no acute disease. ASSESSMENT AND RECOMMENDATION: 1. Sepsis due to urinary tract infection. We will send urine culture and blood culture. Start vancomycin with cefepime empiric treatment. Pending culture results. 2. Urinary tract infection with methicillin-resistant Staphylococcus aureus. We will start vancomycin. Pending repeated urine culture. 3. Renal insufficiency. Recommend hydration and close monitor of renal function. Followup with Nephrology. Margi Haque M.D. DR: COREEN JOB#: [id number] CC:
[2017-07-12 20:00] VITALS: BP 141/77
[2017-07-12] MEDS: Tamsulosin 0.4mg cap ORAL SCH (20:02)
--- NOTE | 2017-07-12 20:17 | Cardiology Report ---
APPROVED REPORT EKG Measurement Heart [id number] Normal sinus rhythm Left axis deviation Incomplete right bundle branch block Abnormal ECG
--- NOTE | 2017-07-12 21:45 | History and Physical Report ---
DATE OF ADMISSION: 07/11/2017 ATTENDING PHYSICIAN: Chris Tipton D.O. CONSULTANTS: 1. Angelita Alarcon M.D. 2. Dr. Gonzales. CHIEF COMPLAINT: Sepsis and weakness. BRIEF HISTORY: This is an 81-year-old female from [facility], presented with the above-mentioned diagnosis, admitted to medical floor for further care. Currently calm in bed. No complaints. No chest pain. No shortness of breath. No nausea, vomiting, or diarrhea. PAST MEDICAL HISTORY: Renal insufficiency, low back pain, weakness. PAST SURGICAL HISTORY: Diskectomy. MEDICATIONS: Cefepime, vancomycin, tamsulosin, Zofran, zolpidem, and dextrose. ALLERGIES: Denies. SOCIAL HISTORY: No smoking. Occasional alcohol. No intravenous drug abuse. FAMILY HISTORY: Noncontributory. PHYSICAL EXAMINATION: GENERAL: Calm in bed, oriented x3, in no acute distress. VITAL SIGNS: Temperature is 97 degrees, pulse 79, respirations 18, and blood pressure 120/72. CARDIOVASCULAR: No murmur. LUNGS: Distant and clear. ABDOMEN: Bowel sounds are positive. Nontender and nondistended. EXTREMITIES: No cyanosis, clubbing, or edema. NEUROLOGIC: The patient moves all extremities. Slight lower extremity weakness. LABORATORY DATA: Labs at this time show hemoglobin 12.5, otherwise, CBC is normal. BMP shows sodium 147, chloride 112, BUN 20. INR is 1.0. Urinalysis showed 2+ protein, 5+ occult blood, 3+ leukocyte esterase. ASSESSMENT: 1. Urinary tract infection. 2. Sepsis. 3. Weakness. 4. Low back pain. 5. Renal insufficiency. 6. Anemia. PLAN: 1. Continue premedications. 2. OT, PT, and dietary evaluation. 3. CBC and BMP in the morning. 4. IV fluids. 5. Resume home medications. 6. Antibiotics per Infectious Disease. 7. Dr. Alracon, Dr. Gonzales, and Dr. Galeano to consult. Chris Tipton D.O. DR: Kiran JOB#: [id number] CC:
[2017-07-13] VITALS: BP 126/66
[2017-07-13 04:00] VITALS: BP 126/77
[2017-07-13 07:01] LABS: BASOPHILS % (AUTO) 1.1 % (0.0-2.0); LYMPHOCYTES % (AUTO) 20.4 % (20.0-45.0); MEAN CORPUSCULAR HEMOGLOBIN 27.5 PG (27.0-31.0); MEAN CORPUSCULAR HGB CONC 31.9 G/DL (32.0-36.0); MEAN CORPUSCULAR VOLUME 86 FL (80-99); MEAN PLATELET VOLUME 7.7 FL (6.5-10.1); MONOCYTES % (AUTO) 10.6 % (1.0-10.0); PLATELET COUNT 212 K/UL (150-450); RED BLOOD COUNT 4.45 M/UL (4.70-6.10); RED CELL DISTRIBUTION WIDTH 15.9 % (11.6-14.8); WHITE BLOOD COUNT 8.5 K/UL (4.8-10.8)
[2017-07-13 07:06] LABS: ANION GAP 8 mmol/L (5-15); CARBON DIOXIDE 27 MMOL/L (21-32); CHLORIDE 111 MMOL/L (98-107); CREATININE 1.3 MG/DL (0.55-1.30); SODIUM 146 MMOL/L (136-145)
[2017-07-13 08:15] VITALS: BP 151/103
--- NOTE | 2017-07-13 10:19 | General Progress Note ---
Assessment/Plan Problem List: (1) MRSA (methicillin resistant Staphylococcus aureus) infection ICD Codes: A49.02 - Methicillin resistant Staphylococcus aureus infection, unspecified site SNOMED: 183388891 (2) MRSA pyemia ICD Codes: A41.02 - Sepsis due to Methicillin resistant Staphylococcus aureus SNOMED: 921723927 (3) Sepsis due to urinary tract infection ICD Codes: A41.9 - Sepsis, unspecified organism; N39.0 - Urinary tract infection, site not specified SNOMED: 087319571 (4) Diabetes mellitus ICD Codes: E11.9 - Type 2 diabetes mellitus without complications SNOMED: 99947010 (5) Hypertension ICD Codes: I10 - Essential (primary) hypertension SNOMED: 10611817 (6) Renal insufficiency ICD Codes: N28.9 - Disorder of kidney and ureter, unspecified SNOMED: 468192928, 211515816 (7) UTI (urinary tract infection) ICD Codes: N39.0 - Urinary tract infection, site not specified SNOMED: 50349832 Qualifiers: Qualified Codes: N30.00 - Acute cystitis without hematuria Status: stable, progressing, tolerating diet Assessment/Plan ot pt diet ivf abx cbc bmp am Subjective Constitutional: Reports: weakness Allergies: Coded Allergies: No Known Allergies (Unverified , 07/11/17) All Systems: reviewed and negative except above Subjective calm sitting Objective Last 24 Hour Vital Signs Date Time Temp Pulse Resp B/P (MAP) Pulse Ox O2 Delivery O2 Flow Rate FiO2 07/13/17 08:15 97.8 63 19 151/103 97 Room Air 07/13/17 04:00 97.5 83 21 126/77 98 Room Air 07/13/17 00:00 97.3 65 20 126/66 97 Room Air 07/12/17 20:00 97.2 76 20 141/77 97 Room Air 07/12/17 15:55 97.7 70 21 138/76 97 Room Air 07/12/17 12:00 97.0 79 18 128/72 97 Room Air Intake and Output 07/13/17 07/14/17 19:00 07:00 Intake Total 240 ml Balance 240 ml Intake Oral 240 ml Laboratory Tests 07/13/17 06:05: White Blood Count 8.5, Red Blood Count 4.45L, Hemoglobin 12.3L, Hematocrit 38.4L , Mean Corpuscular Volume 86, Mean Corpuscular Hemoglobin 27.5, Mean Corpuscular Hemoglobin Concent 31.9L, Red Cell Distribution Width 15.9H, Platelet Count 212, Mean Platelet Volume 7.7, Neutrophils (%) (Auto) 64.0, Lymphocytes (%) (Auto) 20.4, Monocytes (%) (Auto) 10.6H, Eosinophils (%) (Auto) 4.0H, Basophils (%) (Auto) 1.1, Sodium Level 146H, Potassium Level 4.0, Chloride Level 111H, Carbon Dioxide Level 27, Anion Gap 8, Blood Urea Nitrogen 19H, Creatinine 1.3, Estimat Glomerular Filtration Rate , Glucose Level 98, Calcium Level 9.0 Height (Feet): 5 Height (Inches): 10.00 Weight (Pounds): 150 General Appearance: lethargic EENT: normal ENT inspection Neck: normal alignment Cardiovascular: normal peripheral pulses, normal rate, regular rhythm Respiratory/Chest: chest wall non-tender, lungs clear, normal breath sounds Abdomen: normal bowel sounds, non tender, soft Extremities: normal inspection Edema: no edema noted Arm (L), no edema noted Arm (R), no edema noted Leg (L), no edema noted Leg (R), no edema noted Pedal (L), no edema noted Pedal (R), no edema noted Generalized Neurologic: responsive, motor weakness Skin: normal pigmentation, warm/dry RAVEN HAYWARD Jul 13, 2017 10:19
--- NOTE | 2017-07-13 13:35 | Infectious Diseases Prog Note ---
Assessment/Plan Problems: (1) Sepsis due to urinary tract infection Assessment & Plan: await blood culture and urine culture, and continue vancomycin with cefepime empirically (2) UTI (urinary tract infection) Assessment & Plan: with MRSA, now growing gram positive cooci , already on vancomycin pending culture (3) Renal insufficiency Assessment & Plan: recommend hydration, and close monitor of renal function Subjective Constitutional: Reports: no symptoms HEENT: Reports: no symptoms Respiratory: Reports: no symptoms Breasts: Reports: no symptoms Cardiovascular: Reports: no symptoms Gastrointestinal/Abdominal: Reports: no symptoms Genitourinary: Reports: no symptoms Neurologic: Reports: no symptoms Psychiatric: Reports: no symptoms Skin: Reports: no symptoms Endocrine: Reports: no symptoms Hematologic: Reports: no symptoms Musculoskeletal: Reports: no symptoms Allergies: Coded Allergies: No Known Allergies (Unverified , 07/11/17) Objective Vital Signs Last 24 Hour Vital Signs Date Time Temp Pulse Resp B/P (MAP) Pulse Ox O2 Delivery O2 Flow Rate FiO2 07/13/17 08:15 97.8 63 19 151/103 97 Room Air 07/13/17 04:00 97.5 83 21 126/77 98 Room Air 07/13/17 00:00 97.3 65 20 126/66 97 Room Air 07/12/17 20:00 97.2 76 20 141/77 97 Room Air 07/12/17 15:55 97.7 70 21 138/76 97 Room Air Height (Feet): 5 Height (Inches): 10.00 Weight (Pounds): 150 General Appearance: WD/WN, no acute distress HEENT: normocephalic, atraumatic, anicteric, mucous membranes moist, PERRL Respiratory/Chest: chest wall non-tender, lungs clear, normal breath sounds, no respiratory distress, no accessory muscle use Cardiovascular: normal peripheral pulses, normal rate, regular rhythm, no gallop/murmur, no JVD Abdomen: normal bowel sounds, soft, non tender, no organomegaly, non distended , no mass, no scars Extremities: no cyanosis, no clubbing Skin: no rash, no lesions, no ulcers Neurologic/Psychiatric: alert, oriented x 3 Lymphatic: no neck adenopathy, no groin adenopathy Microbiology Date/Time Source Procedure Growth Status 07/11/17 16:50 Blood Blood Culture - Preliminary NO GROWTH AFTER 24 HOURS Resulted 07/11/17 16:50 Blood Blood Culture - Preliminary NO GROWTH AFTER 24 HOURS Resulted 07/11/17 17:10 Urine,Clean Catch Urine Culture - Preliminary Gram Positive Cocci Resulted Laboratory Tests Test 07/13/17 06:05 White Blood Count 8.5 K/UL (4.8-10.8) Red Blood Count 4.45 M/UL (4.70-6.10) L Hemoglobin 12.3 G/DL (14.2-18.0) L Hematocrit 38.4 % (42.0-52.0) L Mean Corpuscular Volume 86 FL (80-99) Mean Corpuscular Hemoglobin 27.5 PG (27.0-31.0) Mean Corpuscular Hemoglobin Concent 31.9 G/DL (32.0-36.0) L Red Cell Distribution Width 15.9 % (11.6-14.8) H Platelet Count 212 K/UL (150-450) Mean Platelet Volume 7.7 FL (6.5-10.1) Neutrophils (%) (Auto) 64.0 % (45.0-75.0) Lymphocytes (%) (Auto) 20.4 % (20.0-45.0) Monocytes (%) (Auto) 10.6 % (1.0-10.0) H Eosinophils (%) (Auto) 4.0 % (0.0-3.0) H Basophils (%) (Auto) 1.1 % (0.0-2.0) Sodium Level 146 MMOL/L (136-145) H Potassium Level 4.0 MMOL/L (3.5-5.1) Chloride Level 111 MMOL/L (98-107) H Carbon Dioxide Level 27 MMOL/L (21-32) Anion Gap 8 mmol/L (5-15) Blood Urea Nitrogen 19 mg/dL (7-18) H Creatinine 1.3 MG/DL (0.55-1.30) Estimat Glomerular Filtration Rate mL/min (>60) Glucose Level 98 MG/DL (74-106) Calcium Level 9.0 MG/DL (8.5-10.1) Current Medications Medications (Trade) Dose Ordered Sig/Amaya Route PRN Reason Start Time Stop Time Status Last Admin Dose Admin Acetaminophen (Tylenol) 650 mg Q4H PRN ORAL fever 07/11/17 21:15 08/10/17 21:14 Al Hydroxide/Mg Hydroxide (Mylanta II) 30 ml Q6H PRN ORAL dyspepsia 07/11/17 21:15 08/10/17 21:14 Cefepime HCl 1 gm/ Dextrose 55 ml @ 110 mls/hr Q24H IVPB 07/12/17 16:30 07/19/17 16:29 07/12/17 16:54 Dextrose (Dextrose 50%) STAT PRN IV Hypoglycemia 07/11/17 21:15 08/10/17 21:14 Diazepam (Valium) 5 mg HSPRN PRN ORAL Anxiety at Bedtime 07/11/17 21:30 07/18/17 20:59 07/13/17 01:05 Lorazepam (Ativan 2mg/ml 1ml) 0.5 mg Q4H PRN IV For Anxiety 07/11/17 21:15 07/18/17 21:14 Ondansetron HCl (Zofran) 4 mg Q6H PRN IVP Nausea & Vomiting 07/11/17 21:15 08/10/17 21:14 Polyethylene Glycol (Miralax) 17 gm HSPRN PRN ORAL Constipation 07/11/17 21:15 08/10/17 21:14 Tamsulosin HCl (Flomax) 0.4 mg BEDTIME ORAL 07/11/17 22:00 08/10/17 21:59 07/12/17 20:02 Vancomycin HCl (Vanco rx to dose) 1 ea DAILY PRN MISC Per rx protocol 07/11/17 21:00 08/10/17 20:59 Vancomycin/Sodium Chloride 250 ml @ 166.667 mls/hr DAILY@1600 IVPB 07/12/17 16:00 07/17/17 15:59 07/12/17 15:09 Zolpidem Tartrate (Ambien) 5 mg HSPRN PRN ORAL Insomnia 07/11/17 21:15 07/18/17 21:14 Margi Haque M.D. Jul 13, 2017 13:35
--- NOTE | 2017-07-13 15:03 | Pulmonology Progress Note ---
Assessment/Plan Problems: (1) Sepsis due to urinary tract infection (2) UTI (urinary tract infection) (3) Diabetes mellitus (4) Hypertension Assessment/Plan improving Urine cultures still pending sensitivity afebrile BC are negativ symptomatic treatment check electrolytes dc planning in 1-2 days. Subjective ROS Limited/Unobtainable: No Interval Events: doing better Allergies: Coded Allergies: No Known Allergies (Unverified , 07/11/17) Objective Last 24 Hour Vital Signs Date Time Temp Pulse Resp B/P (MAP) Pulse Ox O2 Delivery O2 Flow Rate FiO2 07/13/17 08:15 97.8 63 19 151/103 97 Room Air 07/13/17 04:00 97.5 83 21 126/77 98 Room Air 07/13/17 00:00 97.3 65 20 126/66 97 Room Air 07/12/17 20:00 97.2 76 20 141/77 97 Room Air 07/12/17 15:55 97.7 70 21 138/76 97 Room Air Intake and Output 07/13/17 07/14/17 19:00 07:00 Intake Total 240 ml Balance 240 ml Intake Oral 240 ml General Appearance: WD/WN HEENT: normocephalic, atraumatic Respiratory/Chest: chest wall non-tender Cardiovascular: normal rate, regular rhythm Abdomen: normal bowel sounds, soft, non tender Genitourinary: normal external genitalia Extremities: no cyanosis 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, abnormal gait Lymphatic: no neck adenopathy, no groin adenopathy Musculoskeletal: no effusion Microbiology Date/Time Source Procedure Growth Status 07/11/17 16:50 Blood Blood Culture - Preliminary NO GROWTH AFTER 24 HOURS Resulted 07/11/17 16:50 Blood Blood Culture - Preliminary NO GROWTH AFTER 24 HOURS Resulted 07/11/17 17:10 Urine,Clean Catch Urine Culture - Preliminary Gram Positive Cocci Resulted Laboratory Tests 07/13/17 06:05: White Blood Count 8.5, Red Blood Count 4.45L, Hemoglobin 12.3L, Hematocrit 38.4L , Mean Corpuscular Volume 86, Mean Corpuscular Hemoglobin 27.5, Mean Corpuscular Hemoglobin Concent 31.9L, Red Cell Distribution Width 15.9H, Platelet Count 212, Mean Platelet Volume 7.7, Neutrophils (%) (Auto) 64.0, Lymphocytes (%) (Auto) 20.4, Monocytes (%) (Auto) 10.6H, Eosinophils (%) (Auto) 4.0H, Basophils (%) (Auto) 1.1, Sodium Level 146H, Potassium Level 4.0, Chloride Level 111H, Carbon Dioxide Level 27, Anion Gap 8, Blood Urea Nitrogen 19H, Creatinine 1.3, Estimat Glomerular Filtration Rate , Glucose Level 98, Calcium Level 9.0 Current Medications Medications (Trade) Dose Ordered Sig/Amaya Route PRN Reason Start Time Stop Time Status Last Admin Dose Admin Acetaminophen (Tylenol) 650 mg Q4H PRN ORAL fever 07/11/17 21:15 08/10/17 21:14 Al Hydroxide/Mg Hydroxide (Mylanta II) 30 ml Q6H PRN ORAL dyspepsia 07/11/17 21:15 08/10/17 21:14 Cefepime HCl 1 gm/ Dextrose 55 ml @ 110 mls/hr Q24H IVPB 07/12/17 16:30 07/19/17 16:29 07/12/17 16:54 Dextrose (Dextrose 50%) STAT PRN IV Hypoglycemia 07/11/17 21:15 08/10/17 21:14 Diazepam (Valium) 5 mg HSPRN PRN ORAL Anxiety at Bedtime 07/11/17 21:30 07/18/17 20:59 07/13/17 01:05 Lorazepam (Ativan 2mg/ml 1ml) 0.5 mg Q4H PRN IV For Anxiety 07/11/17 21:15 07/18/17 21:14 Ondansetron HCl (Zofran) 4 mg Q6H PRN IVP Nausea & Vomiting 07/11/17 21:15 08/10/17 21:14 Polyethylene Glycol (Miralax) 17 gm HSPRN PRN ORAL Constipation 07/11/17 21:15 08/10/17 21:14 Tamsulosin HCl (Flomax) 0.4 mg BEDTIME ORAL 07/11/17 22:00 08/10/17 21:59 07/12/17 20:02 Vancomycin HCl (Vanco rx to dose) 1 ea DAILY PRN MISC Per rx protocol 07/11/17 21:00 08/10/17 20:59 Vancomycin/Sodium Chloride 250 ml @ 166.667 mls/hr DAILY@1600 IVPB 07/12/17 16:00 07/17/17 15:59 07/12/17 15:09 Zolpidem Tartrate (Ambien) 5 mg HSPRN PRN ORAL Insomnia 07/11/17 21:15 07/18/17 21:14 REGINALDO BARRIOS Jul 13, 2017 15:03
[2017-07-13] MEDS: Vancomycin 750mg/NS 250ml 250 ML IVPB SCH (15:06)
[2017-07-13 16:09] VITALS: BP 165/92
[2017-07-13] MEDS: Cefepime HCl 1 GM in D5W 55 ML IVPB SCH (16:56)
[2017-07-13 20:00] VITALS: BP 125/59
[2017-07-13] MEDS: Tamsulosin 0.4mg cap ORAL SCH (20:35)
[2017-07-14] VITALS: BP 125/69
[2017-07-14 04:00] VITALS: BP 132/76
[2017-07-14 06:38] LABS: BASOPHILS % (AUTO) 1.3 % (0.0-2.0); EOSINOPHILS % (AUTO) 3.9 % (0.0-3.0); LYMPHOCYTES % (AUTO) 26.8 % (20.0-45.0); MEAN CORPUSCULAR HEMOGLOBIN 27.6 PG (27.0-31.0); MEAN CORPUSCULAR HGB CONC 31.6 G/DL (32.0-36.0); MEAN CORPUSCULAR VOLUME 87 FL (80-99); MEAN PLATELET VOLUME 8.5 FL (6.5-10.1); MONOCYTES % (AUTO) 9.7 % (1.0-10.0); NEUTROPHILS % (AUTO) 58.3 % (45.0-75.0); PLATELET COUNT 250 K/UL (150-450); RED CELL DISTRIBUTION WIDTH 16.5 % (11.6-14.8); WHITE BLOOD COUNT 8.9 K/UL (4.8-10.8)
[2017-07-14 06:49] LABS: ANION GAP 7 mmol/L (5-15); CALCIUM 9.4 MG/DL (8.5-10.1); CARBON DIOXIDE 27 MMOL/L (21-32); CHLORIDE 111 MMOL/L (98-107); CREATININE 1.3 MG/DL (0.55-1.30); POTASSIUM 3.7 MMOL/L (3.5-5.1); SODIUM 145 MMOL/L (136-145)
[2017-07-14 08:00] VITALS: BP 120/66
--- NOTE | 2017-07-14 11:56 | General Progress Note ---
Assessment/Plan Problem List: (1) MRSA (methicillin resistant Staphylococcus aureus) infection ICD Codes: A49.02 - Methicillin resistant Staphylococcus aureus infection, unspecified site SNOMED: 887492726 (2) MRSA pyemia ICD Codes: A41.02 - Sepsis due to Methicillin resistant Staphylococcus aureus SNOMED: 620160097 (3) Sepsis due to urinary tract infection ICD Codes: A41.9 - Sepsis, unspecified organism; N39.0 - Urinary tract infection, site not specified SNOMED: 158831163 (4) Diabetes mellitus ICD Codes: E11.9 - Type 2 diabetes mellitus without complications SNOMED: 22223840 (5) Hypertension ICD Codes: I10 - Essential (primary) hypertension SNOMED: 33323737 (6) Renal insufficiency ICD Codes: N28.9 - Disorder of kidney and ureter, unspecified SNOMED: 004539768, 303138511 (7) UTI (urinary tract infection) ICD Codes: N39.0 - Urinary tract infection, site not specified SNOMED: 90877850 Qualifiers: Qualified Codes: N30.00 - Acute cystitis without hematuria Status: stable, progressing, tolerating diet Assessment/Plan ot pt diet ivf abx cbc bmp am dc plan Subjective Constitutional: Reports: weakness Allergies: Coded Allergies: No Known Allergies (Unverified , 07/11/17) All Systems: reviewed and negative except above Subjective calm sitting Objective Last 24 Hour Vital Signs Date Time Temp Pulse Resp B/P (MAP) Pulse Ox O2 Delivery O2 Flow Rate FiO2 07/14/17 08:00 97.5 88 20 120/66 97 Room Air 07/14/17 04:00 98.2 64 20 132/76 97 Room Air 07/14/17 00:00 98.2 70 20 125/69 97 Room Air 07/13/17 20:00 97.9 63 18 125/59 95 Room Air 07/13/17 16:09 97.3 73 22 165/92 97 Room Air Laboratory Tests 07/14/17 06:00: White Blood Count 8.9, Red Blood Count 4.80, Hemoglobin 13.2L, Hematocrit 41.8L , Mean Corpuscular Volume 87, Mean Corpuscular Hemoglobin 27.6, Mean Corpuscular Hemoglobin Concent 31.6L, Red Cell Distribution Width 16.5H, Platelet Count 250, Mean Platelet Volume 8.5, Neutrophils (%) (Auto) 58.3, Lymphocytes (%) (Auto) 26.8, Monocytes (%) (Auto) 9.7, Eosinophils (%) (Auto) 3.9H, Basophils (%) (Auto) 1.3, Sodium Level 145, Potassium Level 3.7, Chloride Level 111H, Carbon Dioxide Level 27, Anion Gap 7, Blood Urea Nitrogen 18, Creatinine 1.3, Estimat Glomerular Filtration Rate , Glucose Level 105, Calcium Level 9.4 Height (Feet): 5 Height (Inches): 10.00 Weight (Pounds): 150 General Appearance: lethargic EENT: normal ENT inspection Neck: normal alignment Cardiovascular: normal peripheral pulses, normal rate, regular rhythm Respiratory/Chest: chest wall non-tender, lungs clear, normal breath sounds Abdomen: normal bowel sounds, non tender, soft Extremities: normal inspection Edema: no edema noted Arm (L), no edema noted Arm (R), no edema noted Leg (L), no edema noted Leg (R), no edema noted Pedal (L), no edema noted Pedal (R), no edema noted Generalized Neurologic: responsive, motor weakness Skin: normal pigmentation, warm/dry RAVEN HAYWARD Jul 14, 2017 11:56
[2017-07-14 12:00] VITALS: BP 127/69
--- NOTE | 2017-07-14 14:44 | Infectious Diseases Prog Note ---
Assessment/Plan Problems: (1) Sepsis due to urinary tract infection Assessment & Plan: await blood culture, urine culture grew MRSA , already on vancomycin with cefepime empirically (2) UTI (urinary tract infection) Assessment & Plan: with MRSA, now growing gram positive cooci , already on vancomycin pending culture (3) Renal insufficiency Assessment & Plan: recommend hydration, and close monitor of renal function Subjective Constitutional: Reports: no symptoms HEENT: Reports: no symptoms Respiratory: Reports: no symptoms Breasts: Reports: no symptoms Cardiovascular: Reports: no symptoms Gastrointestinal/Abdominal: Reports: no symptoms Genitourinary: Reports: no symptoms Neurologic: Reports: no symptoms Psychiatric: Reports: no symptoms Skin: Reports: no symptoms Endocrine: Reports: no symptoms Hematologic: Reports: no symptoms Allergies: Coded Allergies: No Known Allergies (Unverified , 07/11/17) Objective Vital Signs Last 24 Hour Vital Signs Date Time Temp Pulse Resp B/P (MAP) Pulse Ox O2 Delivery O2 Flow Rate FiO2 07/14/17 12:00 96.3 70 20 127/69 99 Room Air 07/14/17 08:00 97.5 88 20 120/66 97 Room Air 07/14/17 04:00 98.2 64 20 132/76 97 Room Air 07/14/17 00:00 98.2 70 20 125/69 97 Room Air 07/13/17 20:00 97.9 63 18 125/59 95 Room Air 07/13/17 16:09 97.3 73 22 165/92 97 Room Air Height (Feet): 5 Height (Inches): 10.00 Weight (Pounds): 150 General Appearance: WD/WN, no acute distress HEENT: normocephalic, atraumatic, anicteric, mucous membranes moist Respiratory/Chest: chest wall non-tender, lungs clear, normal breath sounds, no respiratory distress, no accessory muscle use Cardiovascular: normal peripheral pulses, normal rate, regular rhythm, no gallop/murmur, no JVD Abdomen: normal bowel sounds, soft, non tender, no organomegaly, non distended , no mass, no scars Extremities: no cyanosis, no clubbing Skin: no rash, no lesions Neurologic/Psychiatric: alert, oriented x 3 Microbiology Date/Time Source Procedure Growth Status 07/11/17 16:50 Blood Blood Culture - Preliminary NO GROWTH AFTER 48 HOURS Resulted 07/11/17 16:50 Blood Blood Culture - Preliminary NO GROWTH AFTER 48 HOURS Resulted 07/11/17 17:50 Nasal Nares MRSA Culture - Final NO METHICILLIN RESISTANT STAPH AUREUS... Complete 07/11/17 17:10 Urine,Clean Catch Urine Culture - Final Staphylococcus Aureus - Mrsa Complete 07/11/17 17:50 Rectum VRE Culture - Final NO VANCOMYCIN RESISTANT ENTEROCOCCUS ... Complete Laboratory Tests Test 07/14/17 06:00 White Blood Count 8.9 K/UL (4.8-10.8) Red Blood Count 4.80 M/UL (4.70-6.10) Hemoglobin 13.2 G/DL (14.2-18.0) L Hematocrit 41.8 % (42.0-52.0) L Mean Corpuscular Volume 87 FL (80-99) Mean Corpuscular Hemoglobin 27.6 PG (27.0-31.0) Mean Corpuscular Hemoglobin Concent 31.6 G/DL (32.0-36.0) L Red Cell Distribution Width 16.5 % (11.6-14.8) H Platelet Count 250 K/UL (150-450) Mean Platelet Volume 8.5 FL (6.5-10.1) Neutrophils (%) (Auto) 58.3 % (45.0-75.0) Lymphocytes (%) (Auto) 26.8 % (20.0-45.0) Monocytes (%) (Auto) 9.7 % (1.0-10.0) Eosinophils (%) (Auto) 3.9 % (0.0-3.0) H Basophils (%) (Auto) 1.3 % (0.0-2.0) Sodium Level 145 MMOL/L (136-145) Potassium Level 3.7 MMOL/L (3.5-5.1) Chloride Level 111 MMOL/L (98-107) H Carbon Dioxide Level 27 MMOL/L (21-32) Anion Gap 7 mmol/L (5-15) Blood Urea Nitrogen 18 mg/dL (7-18) Creatinine 1.3 MG/DL (0.55-1.30) Estimat Glomerular Filtration Rate mL/min (>60) Glucose Level 105 MG/DL (74-106) Calcium Level 9.4 MG/DL (8.5-10.1) Current Medications Medications (Trade) Dose Ordered Sig/Amaya Route PRN Reason Start Time Stop Time Status Last Admin Dose Admin Acetaminophen (Tylenol) 650 mg Q4H PRN ORAL fever 07/11/17 21:15 08/10/17 21:14 Al Hydroxide/Mg Hydroxide (Mylanta II) 30 ml Q6H PRN ORAL dyspepsia 07/11/17 21:15 08/10/17 21:14 Cefepime HCl 1 gm/ Dextrose 55 ml @ 110 mls/hr Q24H IVPB 07/14/17 18:00 07/21/17 17:59 Dextrose (Dextrose 50%) STAT PRN IV Hypoglycemia 07/11/17 21:15 08/10/17 21:14 Diazepam (Valium) 5 mg HSPRN PRN ORAL Anxiety at Bedtime 07/11/17 21:30 07/18/17 20:59 07/14/17 00:21 Lorazepam (Ativan 2mg/ml 1ml) 0.5 mg Q4H PRN IV For Anxiety 07/11/17 21:15 07/18/17 21:14 Ondansetron HCl (Zofran) 4 mg Q6H PRN IVP Nausea & Vomiting 07/11/17 21:15 08/10/17 21:14 Polyethylene Glycol (Miralax) 17 gm HSPRN PRN ORAL Constipation 07/11/17 21:15 08/10/17 21:14 07/14/17 11:08 Tamsulosin HCl (Flomax) 0.4 mg BEDTIME ORAL 07/11/17 22:00 08/10/17 21:59 07/13/17 20:35 Vancomycin HCl (Vanco rx to dose) 1 ea DAILY PRN MISC Per rx protocol 07/11/17 21:00 08/10/17 20:59 Vancomycin/Sodium Chloride 250 ml @ 166.667 mls/hr DAILY@1600 IVPB 07/12/17 16:00 07/17/17 15:59 07/13/17 15:06 Zolpidem Tartrate (Ambien) 5 mg HSPRN PRN ORAL Insomnia 07/11/17 21:15 07/18/17 21:14 Margi Haque M.D. Jul 14, 2017 14:44
[2017-07-14 16:00] VITALS: BP 152/75
[2017-07-14] MEDS: Vancomycin 750mg/NS 250ml 250 ML IVPB SCH (16:12)
--- NOTE | 2017-07-14 16:58 | Nephrology Progress Note ---
Assessment/Plan Problem List: (1) UTI (urinary tract infection) (2) Renal insufficiency (3) Hypertension (4) Diabetes mellitus (5) Sepsis due to urinary tract infection (6) MRSA (methicillin resistant Staphylococcus aureus) infection Plan Consult dictated - [id number] Subjective Constitutional: Denies: no symptoms, chills, diaphoresis, fever, malaise, weakness, other HEENT: Denies: no symptoms, eye pain, blurred vision, tearing, double vision, ear pain, ear discharge, nose pain, nose congestion, throat pain, throat swelling, mouth pain, mouth swelling, other Genitourinary: Denies: no symptoms, burning, discharge, frequency, flank pain, hematuria, incontinence, pain, urgency, other Neurologic/Psychiatric: Denies: no symptoms, anxiety, depressed, emotional problems, headache, numbness, paresthesia, pre-existing deficit, seizure, tingling, tremors, weakness, other Subjective In bed, in no apparent distress, states that his only pain is his laptop computer which refused to function Objective Objective Last 24 Hour Vital Signs Date Time Temp Pulse Resp B/P (MAP) Pulse Ox O2 Delivery O2 Flow Rate FiO2 07/14/17 16:00 98.1 72 20 152/75 99 Room Air 07/14/17 12:00 96.3 70 20 127/69 99 Room Air 07/14/17 08:00 97.5 88 20 120/66 97 Room Air 07/14/17 04:00 98.2 64 20 132/76 97 Room Air 07/14/17 00:00 98.2 70 20 125/69 97 Room Air 07/13/17 20:00 97.9 63 18 125/59 95 Room Air Laboratory Tests 07/14/17 06:00: White Blood Count 8.9, Red Blood Count 4.80, Hemoglobin 13.2L, Hematocrit 41.8L , Mean Corpuscular Volume 87, Mean Corpuscular Hemoglobin 27.6, Mean Corpuscular Hemoglobin Concent 31.6L, Red Cell Distribution Width 16.5H, Platelet Count 250, Mean Platelet Volume 8.5, Neutrophils (%) (Auto) 58.3, Lymphocytes (%) (Auto) 26.8, Monocytes (%) (Auto) 9.7, Eosinophils (%) (Auto) 3.9H, Basophils (%) (Auto) 1.3, Sodium Level 145, Potassium Level 3.7, Chloride Level 111H, Carbon Dioxide Level 27, Anion Gap 7, Blood Urea Nitrogen 18, Creatinine 1.3, Estimat Glomerular Filtration Rate , Glucose Level 105, Calcium Level 9.4 07/14/17 15:07: Vancomycin Level Trough 10.1 Height (Feet): 5 Height (Inches): 10.00 Weight (Pounds): 150 General Appearance: no apparent distress, alert EENT: PERRL/EOMI, normal ENT inspection Neck: non-tender, normal alignment, supple Cardiovascular: normal peripheral pulses, normal rate Respiratory/Chest: lungs clear, normal breath sounds Abdomen: non tender, soft Extremities: non-tender, normal inspection Neurologic: no motor/sensory deficits, alert, oriented x 3, responsive Nellie Parsons N.P. Jul 14, 2017 16:58
--- NOTE | 2017-07-14 17:20 | Pulmonology Progress Note ---
Assessment/Plan Problems: (1) Sepsis due to urinary tract infection (2) UTI (urinary tract infection) (3) Diabetes mellitus (4) Hypertension Assessment/Plan improving Urine cultures still pending sensitivity afebrile BC are negativ symptomatic treatment check electrolytes dc planning in 1-2 days. Subjective ROS Limited/Unobtainable: No Constitutional: Reports: no symptoms HEENT: Repors: no symptoms Respiratory: Reports: no symptoms Cardiovascular: Reports: no symptoms Allergies: Coded Allergies: No Known Allergies (Unverified , 07/11/17) Objective Last 24 Hour Vital Signs Date Time Temp Pulse Resp B/P (MAP) Pulse Ox O2 Delivery O2 Flow Rate FiO2 07/14/17 16:00 98.1 72 20 152/75 99 Room Air 07/14/17 12:00 96.3 70 20 127/69 99 Room Air 07/14/17 08:00 97.5 88 20 120/66 97 Room Air 07/14/17 04:00 98.2 64 20 132/76 97 Room Air 07/14/17 00:00 98.2 70 20 125/69 97 Room Air 07/13/17 20:00 97.9 63 18 125/59 95 Room Air General Appearance: WD/WN HEENT: normocephalic Respiratory/Chest: chest wall non-tender, lungs clear Cardiovascular: normal peripheral pulses, normal rate Abdomen: normal bowel sounds, soft, non tender Extremities: no cyanosis, no clubbing 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 Complete 07/11/17 17:50 Rectum VRE Culture - Final NO VANCOMYCIN RESISTANT ENTEROCOCCUS ... Complete Laboratory Tests 07/14/17 06:00: White Blood Count 8.9, Red Blood Count 4.80, Hemoglobin 13.2L, Hematocrit 41.8L , Mean Corpuscular Volume 87, Mean Corpuscular Hemoglobin 27.6, Mean Corpuscular Hemoglobin Concent 31.6L, Red Cell Distribution Width 16.5H, Platelet Count 250, Mean Platelet Volume 8.5, Neutrophils (%) (Auto) 58.3, Lymphocytes (%) (Auto) 26.8, Monocytes (%) (Auto) 9.7, Eosinophils (%) (Auto) 3.9H, Basophils (%) (Auto) 1.3, Sodium Level 145, Potassium Level 3.7, Chloride Level 111H, Carbon Dioxide Level 27, Anion Gap 7, Blood Urea Nitrogen 18, Creatinine 1.3, Estimat Glomerular Filtration Rate , Glucose Level 105, Calcium Level 9.4 07/14/17 15:07: Vancomycin Level Trough 10.1 Current Medications Medications (Trade) Dose Ordered Sig/Amaya Route PRN Reason Start Time Stop Time Status Last Admin Dose Admin Acetaminophen (Tylenol) 650 mg Q4H PRN ORAL fever 07/11/17 21:15 08/10/17 21:14 Al Hydroxide/Mg Hydroxide (Mylanta II) 30 ml Q6H PRN ORAL dyspepsia 07/11/17 21:15 08/10/17 21:14 Cefepime HCl 1 gm/ Dextrose 55 ml @ 110 mls/hr Q24H IVPB 07/14/17 18:00 07/21/17 17:59 Dextrose (Dextrose 50%) STAT PRN IV Hypoglycemia 07/11/17 21:15 08/10/17 21:14 Diazepam (Valium) 5 mg HSPRN PRN ORAL Anxiety at Bedtime 07/11/17 21:30 07/18/17 20:59 07/14/17 00:21 Lorazepam (Ativan 2mg/ml 1ml) 0.5 mg Q4H PRN IV For Anxiety 07/11/17 21:15 07/18/17 21:14 Ondansetron HCl (Zofran) 4 mg Q6H PRN IVP Nausea & Vomiting 07/11/17 21:15 08/10/17 21:14 Polyethylene Glycol (Miralax) 17 gm HSPRN PRN ORAL Constipation 07/11/17 21:15 08/10/17 21:14 07/14/17 11:08 Tamsulosin HCl (Flomax) 0.4 mg BEDTIME ORAL 07/11/17 22:00 08/10/17 21:59 07/13/17 20:35 Vancomycin HCl (Vanco rx to dose) 1 ea DAILY PRN MISC Per rx protocol 07/11/17 21:00 08/10/17 20:59 Vancomycin/Sodium Chloride 250 ml @ 166.667 mls/hr DAILY@1600 IVPB 07/12/17 16:00 07/17/17 15:59 07/14/17 16:12 Zolpidem Tartrate (Ambien) 5 mg HSPRN PRN ORAL Insomnia 07/11/17 21:15 07/18/17 21:14 REGINALDO BARRIOS Jul 14, 2017 17:20
[2017-07-14] MEDS ORDERED: Cefepime HCl 1 GM in D5W 55 ML IVPB SCH (18:00)
[2017-07-14 20:42] VITALS: BP 132/79
[2017-07-14] MEDS: Tamsulosin 0.4mg cap ORAL SCH (20:49)
--- NOTE | 2017-07-14 23:00 | Consultation ---
DATE OF CONSULTATION: 07/14/2017 NEPHROLOGY CONSULTATION CONSULTING PHYSICIAN: Franck Galeano M.D. HISTORY OF PRESENT ILLNESS: The patient is a pleasant 81-year-old male with a past medical history significant for hypertension, hyperlipidemia, diabetes, GERD and anxiety disorder, resident of a snf facility who presented to the hospital due to urinary infection. The patient apparently had a surgical resection of the prostate about a month ago, but has recently been experiencing some dysuria. Urinalysis was done at the facility, which showed evidence of MRSA growth in his urine. So, he was transferred to this hospital for further evaluation. He has been in bed at this time, in no apparent distress. Denies chest pain. No nausea. No vomiting. Denies any fever or chills. Stated that his only pain is his laptop computer, which has refused to work. He was asked if he could get it fixed. PAST MEDICAL HISTORY: Significant for GERD, hyperlipidemia, hypertension, diabetes, anxiety disorder and some muscle weakness. PAST SURGICAL HISTORY: Prostate resection about a month ago. ALLERGIES: He has no known allergies. SOCIAL HISTORY: He lives in a nursing facility. No drug use. No alcohol. No smoking history. REVIEW OF SYSTEMS: Negative except mentioned in HPI. PHYSICAL EXAMINATION: GENERAL: This is an 81-year-old male, in bed lying comfortably in no apparent distress. VITAL SIGNS: Blood pressure 152/75, heart rate is 72, respiratory rate is 20, temperature is 98.1 degrees, and O2 saturation is 99% on room air. HEENT: Head is normocephalic and atraumatic with moist mucous membranes. Pupils are equal, round, and reactive to light and accommodation. NECK: Supple. No JVD noted. LUNGS: Clear to auscultation bilaterally. No wheezing. No crackles. CARDIOVASCULAR: Regular rate and rhythm. No murmurs. No gallops. ABDOMEN: Soft, nontender, and nondistended. Positive bowel sounds in all four quadrants. EXTREMITIES: No edema. No cyanosis. No clubbing. NEUROLOGIC: He is awake, alert, and oriented with no focal deficits. LABORATORY AND DIAGNOSTIC DATA: CBC, white count 8.9, hemoglobin 13.2, hematocrit 41.8 and platelet count of 250. BMP, sodium 145, potassium 3.7, chloride 111, bicarbonate 27, BUN 18, creatinine 1.3, and blood glucose is 105. Radiologic findings, chest x-ray findings, no definite infiltrate or pulmonary vascular congestion identified. There is scaring in the lung apices. The heart is enlarged. The aorta is mildly enlarged consistent with atherosclerotic vascular disease. The bones are osteopenic. Impression, no acute disease. ASSESSMENT: 1. Acute kidney injury, resolved. 2. Hyponatremia, resolved. 3. Congestive heart failure. 4. Hypertension. 5. Urinary tract infection. 6. Anxiety disorder. 7. Do Not Resuscitate status. PLAN: 1. We will monitor renal function. 2. Monitor intake and output. 3. Monitor lytes and correct as needed. 4. Continue antibiotics per Infectious Disease. 5. Fall precautions. 6. We will renally dose medication and avoid nephrotoxins. 7. Monitor the patient's overall response to treatment. Franck Galeano M.D. Nellie Parsons DR: JESUS JOB#: [id number] CC: LIT[facility]
[2017-07-15] VITALS: BP 109/51
[2017-07-15 04:00] VITALS: BP 137/79
[2017-07-15 06:52] LABS: BASOPHILS % (AUTO) 1.6 % (0.0-2.0); EOSINOPHILS % (AUTO) 3.9 % (0.0-3.0); LYMPHOCYTES % (AUTO) 21.9 % (20.0-45.0); MEAN CORPUSCULAR HEMOGLOBIN 25.8 PG (27.0-31.0); MEAN CORPUSCULAR HGB CONC 29.3 G/DL (32.0-36.0); MEAN CORPUSCULAR VOLUME 88 FL (80-99); MEAN PLATELET VOLUME 7.6 FL (6.5-10.1); MONOCYTES % (AUTO) 9.8 % (1.0-10.0); NEUTROPHILS % (AUTO) 62.9 % (45.0-75.0); PLATELET COUNT 209 K/UL (150-450); RED BLOOD COUNT 4.66 M/UL (4.70-6.10); RED CELL DISTRIBUTION WIDTH 16.3 % (11.6-14.8); WHITE BLOOD COUNT 6.8 K/UL (4.8-10.8)
[2017-07-15 07:10] LABS: ANION GAP 9 mmol/L (5-15); CALCIUM 9.3 MG/DL (8.5-10.1); CARBON DIOXIDE 26 MMOL/L (21-32); CHLORIDE 111 MMOL/L (98-107); CREATININE 1.2 MG/DL (0.55-1.30); POTASSIUM 4.1 MMOL/L (3.5-5.1); SODIUM 146 MMOL/L (136-145)
[2017-07-15 08:00] VITALS: BP 132/65
[2017-07-15 11:51] VITALS: BP 125/70
--- NOTE | 2017-07-15 15:01 | Infectious Diseases Prog Note ---
Assessment/Plan Problems: (1) Sepsis due to urinary tract infection Assessment & Plan: less likely with negative blood culture, urine culture grew MRSA , already on vancomycin , will stop cefepime empirically (2) UTI (urinary tract infection) Assessment & Plan: with MRSA, on vancomycin , will treat for two weeks (3) Renal insufficiency Assessment & Plan: recommend hydration, and close monitor of renal function (4) Incontinence Assessment & Plan: suspect due to recent prostate surgery with TURP, recommend follow up with urologist Subjective Constitutional: Reports: no symptoms HEENT: Reports: no symptoms Respiratory: Reports: no symptoms Breasts: Reports: no symptoms Cardiovascular: Reports: no symptoms Gastrointestinal/Abdominal: Reports: no symptoms Genitourinary: Reports: frequency, other - incontinance Neurologic: Reports: no symptoms Psychiatric: Reports: no symptoms Skin: Reports: no symptoms Endocrine: Reports: no symptoms Allergies: Coded Allergies: No Known Allergies (Unverified , 07/11/17) Objective Vital Signs Last 24 Hour Vital Signs Date Time Temp Pulse Resp B/P (MAP) Pulse Ox O2 Delivery O2 Flow Rate FiO2 07/15/17 11:51 97.3 79 20 125/70 99 Room Air 07/15/17 08:00 97.7 93 20 132/65 96 Room Air 07/15/17 04:00 98.2 73 20 137/79 97 Room Air 07/15/17 00:00 109/51 07/14/17 20:42 97.8 69 20 132/79 97 Room Air 07/14/17 16:00 98.1 72 20 152/75 99 Room Air Height (Feet): 5 Height (Inches): 10.00 Weight (Pounds): 150 General Appearance: WD/WN, no acute distress HEENT: normocephalic, atraumatic, anicteric, mucous membranes moist Respiratory/Chest: chest wall non-tender, lungs clear, normal breath sounds, no respiratory distress, no accessory muscle use Cardiovascular: normal peripheral pulses, normal rate, regular rhythm, no gallop/murmur Abdomen: normal bowel sounds, soft, non tender, no organomegaly, non distended , no mass, no scars Extremities: no cyanosis, no clubbing Skin: no rash, no lesions, no ulcers Neurologic/Psychiatric: alert, oriented x 3, responsive Lymphatic: no neck adenopathy, no groin adenopathy Laboratory Tests Test 07/14/17 15:07 07/15/17 05:55 Vancomycin Level Trough 10.1 ug/mL (5.0-12.0) White Blood Count 6.8 K/UL (4.8-10.8) Red Blood Count 4.66 M/UL (4.70-6.10) L Hemoglobin 12.0 G/DL (14.2-18.0) L Hematocrit 41.0 % (42.0-52.0) L Mean Corpuscular Volume 88 FL (80-99) Mean Corpuscular Hemoglobin 25.8 PG (27.0-31.0) L Mean Corpuscular Hemoglobin Concent 29.3 G/DL (32.0-36.0) L Red Cell Distribution Width 16.3 % (11.6-14.8) H Platelet Count 209 K/UL (150-450) Mean Platelet Volume 7.6 FL (6.5-10.1) Neutrophils (%) (Auto) 62.9 % (45.0-75.0) Lymphocytes (%) (Auto) 21.9 % (20.0-45.0) Monocytes (%) (Auto) 9.8 % (1.0-10.0) Eosinophils (%) (Auto) 3.9 % (0.0-3.0) H Basophils (%) (Auto) 1.6 % (0.0-2.0) Sodium Level 146 MMOL/L (136-145) H Potassium Level 4.1 MMOL/L (3.5-5.1) Chloride Level 111 MMOL/L (98-107) H Carbon Dioxide Level 26 MMOL/L (21-32) Anion Gap 9 mmol/L (5-15) Blood Urea Nitrogen 16 mg/dL (7-18) Creatinine 1.2 MG/DL (0.55-1.30) Estimat Glomerular Filtration Rate mL/min (>60) Glucose Level 99 MG/DL (74-106) Calcium Level 9.3 MG/DL (8.5-10.1) Current Medications Medications (Trade) Dose Ordered Sig/Amaya Route PRN Reason Start Time Stop Time Status Last Admin Dose Admin Acetaminophen (Tylenol) 650 mg Q4H PRN ORAL fever 07/11/17 21:15 08/10/17 21:14 Al Hydroxide/Mg Hydroxide (Mylanta II) 30 ml Q6H PRN ORAL dyspepsia 07/11/17 21:15 08/10/17 21:14 Dextrose (Dextrose 50%) STAT PRN IV Hypoglycemia 07/11/17 21:15 08/10/17 21:14 Diazepam (Valium) 5 mg HSPRN PRN ORAL Anxiety at Bedtime 07/11/17 21:30 07/18/17 20:59 07/14/17 22:34 Lorazepam (Ativan 2mg/ml 1ml) 0.5 mg Q4H PRN IV For Anxiety 07/11/17 21:15 07/18/17 21:14 Ondansetron HCl (Zofran) 4 mg Q6H PRN IVP Nausea & Vomiting 07/11/17 21:15 08/10/17 21:14 Polyethylene Glycol (Miralax) 17 gm HSPRN PRN ORAL Constipation 07/11/17 21:15 08/10/17 21:14 07/14/17 11:08 Tamsulosin HCl (Flomax) 0.4 mg BEDTIME ORAL 07/11/17 22:00 08/10/17 21:59 07/14/17 20:49 Vancomycin HCl (Vanco rx to dose) 1 ea DAILY PRN MISC Per rx protocol 07/11/17 21:00 08/10/17 20:59 Vancomycin/Sodium Chloride 250 ml @ 166.667 mls/hr DAILY@1600 IVPB 07/12/17 16:00 07/17/17 15:59 07/14/17 16:12 Zolpidem Tartrate (Ambien) 5 mg HSPRN PRN ORAL Insomnia 07/11/17 21:15 07/18/17 21:14 Margi Haque M.D. Jul 15, 2017 15:01
--- NOTE | 2017-07-15 15:23 | General Progress Note ---
Assessment/Plan Problem List: (1) MRSA (methicillin resistant Staphylococcus aureus) infection ICD Codes: A49.02 - Methicillin resistant Staphylococcus aureus infection, unspecified site SNOMED: 849332967 (2) MRSA pyemia ICD Codes: A41.02 - Sepsis due to Methicillin resistant Staphylococcus aureus SNOMED: 570224373 (3) Sepsis due to urinary tract infection ICD Codes: A41.9 - Sepsis, unspecified organism; N39.0 - Urinary tract infection, site not specified SNOMED: 218975422 (4) Diabetes mellitus ICD Codes: E11.9 - Type 2 diabetes mellitus without complications SNOMED: 42354530 (5) Hypertension ICD Codes: I10 - Essential (primary) hypertension SNOMED: 07930065 (6) Renal insufficiency ICD Codes: N28.9 - Disorder of kidney and ureter, unspecified SNOMED: 879048385, 085310048 (7) UTI (urinary tract infection) ICD Codes: N39.0 - Urinary tract infection, site not specified SNOMED: 87709869 Qualifiers: Qualified Codes: N30.00 - Acute cystitis without hematuria Status: stable, progressing, tolerating diet Assessment/Plan ot pt diet ivf abx cbc bmp am uro eval dc plan Subjective Constitutional: Reports: weakness Allergies: Coded Allergies: No Known Allergies (Unverified , 07/11/17) All Systems: reviewed and negative except above Subjective calm sitting wants to see uro Objective Last 24 Hour Vital Signs Date Time Temp Pulse Resp B/P (MAP) Pulse Ox O2 Delivery O2 Flow Rate FiO2 07/15/17 11:51 97.3 79 20 125/70 99 Room Air 07/15/17 08:00 97.7 93 20 132/65 96 Room Air 07/15/17 04:00 98.2 73 20 137/79 97 Room Air 07/15/17 00:00 109/51 07/14/17 20:42 97.8 69 20 132/79 97 Room Air 07/14/17 16:00 98.1 72 20 152/75 99 Room Air Intake and Output 07/15/17 07/16/17 19:00 07:00 Intake Total 360 ml Balance 360 ml Intake Oral 360 ml # Voids 2 Laboratory Tests 07/15/17 05:55: White Blood Count 6.8, Red Blood Count 4.66L, Hemoglobin 12.0L, Hematocrit 41.0L , Mean Corpuscular Volume 88, Mean Corpuscular Hemoglobin 25.8L, Mean Corpuscular Hemoglobin Concent 29.3L, Red Cell Distribution Width 16.3H, Platelet Count 209, Mean Platelet Volume 7.6, Neutrophils (%) (Auto) 62.9, Lymphocytes (%) (Auto) 21.9, Monocytes (%) (Auto) 9.8, Eosinophils (%) (Auto) 3.9H, Basophils (%) (Auto) 1.6, Sodium Level 146H, Potassium Level 4.1, Chloride Level 111H, Carbon Dioxide Level 26, Anion Gap 9, Blood Urea Nitrogen 16, Creatinine 1.2, Estimat Glomerular Filtration Rate , Glucose Level 99, Calcium Level 9.3 Height (Feet): 5 Height (Inches): 10.00 Weight (Pounds): 150 General Appearance: alert EENT: normal ENT inspection Neck: normal alignment Cardiovascular: normal peripheral pulses, normal rate, regular rhythm Respiratory/Chest: chest wall non-tender, lungs clear, normal breath sounds Abdomen: normal bowel sounds, non tender, soft Extremities: normal inspection Edema: no edema noted Arm (L), no edema noted Arm (R), no edema noted Leg (L), no edema noted Leg (R), no edema noted Pedal (L), no edema noted Pedal (R), no edema noted Generalized Neurologic: responsive, motor weakness Skin: normal pigmentation, warm/dry RAVEN HAYWARD Jul 15, 2017 15:23
[2017-07-15 16:00] VITALS: BP 120/76
[2017-07-15] MEDS: Vancomycin 750mg/NS 250ml 250 ML IVPB SCH (16:38)
--- NOTE | 2017-07-15 18:43 | Pulmonology Progress Note ---
Assessment/Plan Problems: (1) Sepsis due to urinary tract infection (2) UTI (urinary tract infection) (3) Diabetes mellitus (4) Hypertension Assessment/Plan improving Urine cultures still pending sensitivity afebrile BC are negativ symptomatic treatment check electrolytes Subjective ROS Limited/Unobtainable: No Interval Events: c/o of dribbling of urine Constitutional: Reports: no symptoms HEENT: Repors: no symptoms Respiratory: Reports: no symptoms Allergies: Coded Allergies: No Known Allergies (Unverified , 07/11/17) Objective Last 24 Hour Vital Signs Date Time Temp Pulse Resp B/P (MAP) Pulse Ox O2 Delivery O2 Flow Rate FiO2 07/15/17 11:51 97.3 79 20 125/70 99 Room Air 07/15/17 08:00 97.7 93 20 132/65 96 Room Air 07/15/17 04:00 98.2 73 20 137/79 97 Room Air 07/15/17 00:00 109/51 07/14/17 20:42 97.8 69 20 132/79 97 Room Air Intake and Output 07/15/17 07/16/17 19:00 07:00 Intake Total 360 ml Balance 360 ml Intake Oral 360 ml # Voids 2 Objective General Appearance: WD/WN, no apparent distress Lines, tubes and drains: peripheral, HEENT: normocephalic, anicteric Neck: non-tender, normal alignment Respiratory/Chest: chest wall non-tender, lungs clear Cardiovascular/Chest: normal rate, regular rhythm Abdomen: non tender, soft Genitourinary/Rectal: normal genital exam, normal rectal exam Extremities: normal range of motion, non-pitting General Appearance: WD/WN Laboratory Tests 07/15/17 05:55: White Blood Count 6.8, Red Blood Count 4.66L, Hemoglobin 12.0L, Hematocrit 41.0L , Mean Corpuscular Volume 88, Mean Corpuscular Hemoglobin 25.8L, Mean Corpuscular Hemoglobin Concent 29.3L, Red Cell Distribution Width 16.3H, Platelet Count 209, Mean Platelet Volume 7.6, Neutrophils (%) (Auto) 62.9, Lymphocytes (%) (Auto) 21.9, Monocytes (%) (Auto) 9.8, Eosinophils (%) (Auto) 3.9H, Basophils (%) (Auto) 1.6, Sodium Level 146H, Potassium Level 4.1, Chloride Level 111H, Carbon Dioxide Level 26, Anion Gap 9, Blood Urea Nitrogen 16, Creatinine 1.2, Estimat Glomerular Filtration Rate , Glucose Level 99, Calcium Level 9.3 Current Medications Medications (Trade) Dose Ordered Sig/Amaya Route PRN Reason Start Time Stop Time Status Last Admin Dose Admin Acetaminophen (Tylenol) 650 mg Q4H PRN ORAL fever 07/11/17 21:15 08/10/17 21:14 Al Hydroxide/Mg Hydroxide (Mylanta II) 30 ml Q6H PRN ORAL dyspepsia 07/11/17 21:15 08/10/17 21:14 Dextrose (Dextrose 50%) STAT PRN IV Hypoglycemia 07/11/17 21:15 08/10/17 21:14 Diazepam (Valium) 5 mg HSPRN PRN ORAL Anxiety at Bedtime 07/11/17 21:30 07/18/17 20:59 07/14/17 22:34 Lorazepam (Ativan 2mg/ml 1ml) 0.5 mg Q4H PRN IV For Anxiety 07/11/17 21:15 07/18/17 21:14 Ondansetron HCl (Zofran) 4 mg Q6H PRN IVP Nausea & Vomiting 07/11/17 21:15 08/10/17 21:14 Polyethylene Glycol (Miralax) 17 gm HSPRN PRN ORAL Constipation 07/11/17 21:15 08/10/17 21:14 07/14/17 11:08 Tamsulosin HCl (Flomax) 0.4 mg BEDTIME ORAL 07/11/17 22:00 08/10/17 21:59 07/14/17 20:49 Vancomycin HCl (Vanco rx to dose) 1 ea DAILY PRN MISC Per rx protocol 07/11/17 21:00 08/10/17 20:59 Vancomycin/Sodium Chloride 250 ml @ 166.667 mls/hr DAILY@1600 IVPB 07/12/17 16:00 07/17/17 15:59 07/15/17 16:38 Zolpidem Tartrate (Ambien) 5 mg HSPRN PRN ORAL Insomnia 07/11/17 21:15 07/18/17 21:14 REGINALDO BARRIOS Jul 15, 2017 18:43
[2017-07-15 20:00] VITALS: BP 148/53
[2017-07-15] MEDS: Tamsulosin 0.4mg cap ORAL SCH (21:10)
[2017-07-16] VITALS: BP 110/61
[2017-07-16 04:00] VITALS: BP 123/58
[2017-07-16 07:07] LABS: ANION GAP 6 mmol/L (5-15); CARBON DIOXIDE 28 MMOL/L (21-32); CHLORIDE 111 MMOL/L (98-107); CREATININE 1.3 MG/DL (0.55-1.30); POTASSIUM 4.2 MMOL/L (3.5-5.1); SODIUM 145 MMOL/L (136-145)
[2017-07-16 07:41] LABS: BASOPHILS % (AUTO) 1.4 % (0.0-2.0); EOSINOPHILS % (AUTO) 3.3 % (0.0-3.0); LYMPHOCYTES % (AUTO) 23.5 % (20.0-45.0); MEAN CORPUSCULAR HEMOGLOBIN 25.6 PG (27.0-31.0); MEAN CORPUSCULAR HGB CONC 29.9 G/DL (32.0-36.0); MEAN CORPUSCULAR VOLUME 86 FL (80-99); MEAN PLATELET VOLUME 7.2 FL (6.5-10.1); MONOCYTES % (AUTO) 10.3 % (1.0-10.0); NEUTROPHILS % (AUTO) 61.6 % (45.0-75.0); PLATELET COUNT 222 K/UL (150-450); RED BLOOD COUNT 4.93 M/UL (4.70-6.10); RED CELL DISTRIBUTION WIDTH 15.5 % (11.6-14.8); WHITE BLOOD COUNT 8.3 K/UL (4.8-10.8)
[2017-07-16 08:22] VITALS: BP 148/75
[2017-07-16] MEDS ORDERED: NS 275ml ONE (10:34)
[2017-07-16] MEDS ORDERED: Tubing IV Secondary IV ONE (10:34)
[2017-07-16 12:05] VITALS: BP 123/61
--- NOTE | 2017-07-16 13:33 | General Progress Note ---
Assessment/Plan Problem List: (1) MRSA (methicillin resistant Staphylococcus aureus) infection ICD Codes: A49.02 - Methicillin resistant Staphylococcus aureus infection, unspecified site SNOMED: 472574294 (2) MRSA pyemia ICD Codes: A41.02 - Sepsis due to Methicillin resistant Staphylococcus aureus SNOMED: 664613444 (3) Sepsis due to urinary tract infection ICD Codes: A41.9 - Sepsis, unspecified organism; N39.0 - Urinary tract infection, site not specified SNOMED: 144642050 (4) Diabetes mellitus ICD Codes: E11.9 - Type 2 diabetes mellitus without complications SNOMED: 97364030 (5) Hypertension ICD Codes: I10 - Essential (primary) hypertension SNOMED: 75174548 (6) Renal insufficiency ICD Codes: N28.9 - Disorder of kidney and ureter, unspecified SNOMED: 620138058, 160178901 (7) UTI (urinary tract infection) ICD Codes: N39.0 - Urinary tract infection, site not specified SNOMED: 26250388 Qualifiers: Qualified Codes: N30.00 - Acute cystitis without hematuria Status: stable, progressing, tolerating diet Assessment/Plan ot pt diet ivf abx dc if clear by id and uro Subjective Constitutional: Reports: weakness Allergies: Coded Allergies: No Known Allergies (Unverified , 07/11/17) All Systems: reviewed and negative except above Subjective calm sitting wants to see uro Objective Last 24 Hour Vital Signs Date Time Temp Pulse Resp B/P (MAP) Pulse Ox O2 Delivery O2 Flow Rate FiO2 07/16/17 12:05 97.2 64 19 123/61 97 Room Air 07/16/17 08:22 98.2 94 20 148/75 97 Room Air 07/16/17 04:00 97.5 66 20 123/58 98 Room Air 07/16/17 00:00 97.3 78 20 110/61 98 Room Air 07/15/17 20:00 97.7 54 20 148/53 98 Room Air 07/15/17 16:00 97.3 72 20 120/76 99 Room Air Intake and Output 07/16/17 07/17/17 19:00 07:00 Intake Total 240 ml Balance 240 ml Intake Oral 240 ml # Bowel Movements 1 Laboratory Tests 07/16/17 05:50: White Blood Count 8.3, Red Blood Count 4.93, Hemoglobin 12.6L, Hematocrit 42.3, Mean Corpuscular Volume 86, Mean Corpuscular Hemoglobin 25.6L, Mean Corpuscular Hemoglobin Concent 29.9L, Red Cell Distribution Width 15.5H, Platelet Count 222 , Mean Platelet Volume 7.2, Neutrophils (%) (Auto) 61.6, Lymphocytes (%) (Auto) 23.5, Monocytes (%) (Auto) 10.3H, Eosinophils (%) (Auto) 3.3H, Basophils (%) ( Auto) 1.4, Sodium Level 145, Potassium Level 4.2, Chloride Level 111H, Carbon Dioxide Level 28, Anion Gap 6, Blood Urea Nitrogen 16, Creatinine 1.3, Estimat Glomerular Filtration Rate , Glucose Level 91, Calcium Level 9.0 Height (Feet): 5 Height (Inches): 10.00 Weight (Pounds): 150 General Appearance: alert EENT: normal ENT inspection Neck: normal alignment Cardiovascular: normal peripheral pulses, normal rate, regular rhythm Respiratory/Chest: chest wall non-tender, lungs clear, normal breath sounds Abdomen: normal bowel sounds, non tender, soft Extremities: normal inspection Edema: no edema noted Arm (L), no edema noted Arm (R), no edema noted Leg (L), no edema noted Leg (R), no edema noted Pedal (L), no edema noted Pedal (R), no edema noted Generalized Neurologic: responsive, motor weakness Skin: normal pigmentation, warm/dry RAVEN HAYWARD Jul 16, 2017 13:33
--- NOTE | 2017-07-16 14:55 | Pulmonology Progress Note ---
Assessment/Plan Problems: (1) Sepsis due to urinary tract infection (2) UTI (urinary tract infection) (3) Diabetes mellitus (4) Hypertension Assessment/Plan still leaking afebrile BC are negativ symptomatic treatment check electrolytes dc planning in progress. Subjective ROS Limited/Unobtainable: No Constitutional: Reports: no symptoms Respiratory: Reports: no symptoms Allergies: Coded Allergies: No Known Allergies (Unverified , 07/11/17) Objective Last 24 Hour Vital Signs Date Time Temp Pulse Resp B/P (MAP) Pulse Ox O2 Delivery O2 Flow Rate FiO2 07/16/17 12:05 97.2 64 19 123/61 97 Room Air 07/16/17 08:22 98.2 94 20 148/75 97 Room Air 07/16/17 04:00 97.5 66 20 123/58 98 Room Air 07/16/17 00:00 97.3 78 20 110/61 98 Room Air 07/15/17 20:00 97.7 54 20 148/53 98 Room Air 07/15/17 16:00 97.3 72 20 120/76 99 Room Air Intake and Output 07/16/17 07/17/17 19:00 07:00 Intake Total 240 ml Balance 240 ml Intake Oral 240 ml # Bowel Movements 1 Objective General Appearance: WD/WN, no apparent distress Lines, tubes and drains: peripheral, HEENT: normocephalic, anicteric Neck: non-tender, normal alignment Respiratory/Chest: chest wall non-tender, lungs clear Cardiovascular/Chest: normal rate, regular rhythm Abdomen: non tender, soft Genitourinary/Rectal: normal genital exam, normal rectal exam Extremities: normal range of motion, non-pitting Laboratory Tests 07/16/17 05:50: White Blood Count 8.3, Red Blood Count 4.93, Hemoglobin 12.6L, Hematocrit 42.3, Mean Corpuscular Volume 86, Mean Corpuscular Hemoglobin 25.6L, Mean Corpuscular Hemoglobin Concent 29.9L, Red Cell Distribution Width 15.5H, Platelet Count 222 , Mean Platelet Volume 7.2, Neutrophils (%) (Auto) 61.6, Lymphocytes (%) (Auto) 23.5, Monocytes (%) (Auto) 10.3H, Eosinophils (%) (Auto) 3.3H, Basophils (%) ( Auto) 1.4, Sodium Level 145, Potassium Level 4.2, Chloride Level 111H, Carbon Dioxide Level 28, Anion Gap 6, Blood Urea Nitrogen 16, Creatinine 1.3, Estimat Glomerular Filtration Rate , Glucose Level 91, Calcium Level 9.0 Current Medications Medications (Trade) Dose Ordered Sig/Amaya Route PRN Reason Start Time Stop Time Status Last Admin Dose Admin Acetaminophen (Tylenol) 650 mg Q4H PRN ORAL fever 07/11/17 21:15 08/10/17 21:14 Al Hydroxide/Mg Hydroxide (Mylanta II) 30 ml Q6H PRN ORAL dyspepsia 07/11/17 21:15 08/10/17 21:14 Dextrose (Dextrose 50%) STAT PRN IV Hypoglycemia 07/11/17 21:15 08/10/17 21:14 Diazepam (Valium) 5 mg HSPRN PRN ORAL Anxiety at Bedtime 07/11/17 21:30 07/18/17 20:59 07/15/17 22:51 Lorazepam (Ativan 2mg/ml 1ml) 0.5 mg Q4H PRN IV For Anxiety 07/11/17 21:15 07/18/17 21:14 Ondansetron HCl (Zofran) 4 mg Q6H PRN IVP Nausea & Vomiting 07/11/17 21:15 08/10/17 21:14 Polyethylene Glycol (Miralax) 17 gm HSPRN PRN ORAL Constipation 07/11/17 21:15 08/10/17 21:14 07/14/17 11:08 Tamsulosin HCl (Flomax) 0.4 mg BEDTIME ORAL 07/11/17 22:00 08/10/17 21:59 07/15/17 21:10 Vancomycin HCl (Vanco rx to dose) 1 ea DAILY PRN MISC Per rx protocol 07/11/17 21:00 08/10/17 20:59 Vancomycin/Sodium Chloride 250 ml @ 166.667 mls/hr DAILY@1600 IVPB 07/12/17 16:00 07/17/17 15:59 07/15/17 16:38 Zolpidem Tartrate (Ambien) 5 mg HSPRN PRN ORAL Insomnia 07/11/17 21:15 07/18/17 21:14 REGINALDO BARRIOS Jul 16, 2017 14:55
--- NOTE | 2017-07-16 15:31 | General Progress Note ---
Assessment/Plan Status: stable Status Narrative sp post TURP recurrent UTI Assessment/Plan prophylactic antibiotics check PVR Subjective ROS Limited/Unobtainable: Yes Constitutional: Reports: no symptoms Genitourinary: Reports: frequency, incontinence Endocrine: Reports: no symptoms Hematologic/Lymphatic: Reports: no symptoms Allergies: Coded Allergies: No Known Allergies (Unverified , 07/11/17) All Systems: reviewed and negative except above Objective Last 24 Hour Vital Signs Date Time Temp Pulse Resp B/P (MAP) Pulse Ox O2 Delivery O2 Flow Rate FiO2 07/16/17 12:05 97.2 64 19 123/61 97 Room Air 07/16/17 08:22 98.2 94 20 148/75 97 Room Air 07/16/17 04:00 97.5 66 20 123/58 98 Room Air 07/16/17 00:00 97.3 78 20 110/61 98 Room Air 07/15/17 20:00 97.7 54 20 148/53 98 Room Air 07/15/17 16:00 97.3 72 20 120/76 99 Room Air Intake and Output 07/16/17 07/17/17 19:00 07:00 Intake Total 240 ml Balance 240 ml Intake Oral 240 ml # Bowel Movements 1 Laboratory Tests 07/16/17 05:50: White Blood Count 8.3, Red Blood Count 4.93, Hemoglobin 12.6L, Hematocrit 42.3, Mean Corpuscular Volume 86, Mean Corpuscular Hemoglobin 25.6L, Mean Corpuscular Hemoglobin Concent 29.9L, Red Cell Distribution Width 15.5H, Platelet Count 222 , Mean Platelet Volume 7.2, Neutrophils (%) (Auto) 61.6, Lymphocytes (%) (Auto) 23.5, Monocytes (%) (Auto) 10.3H, Eosinophils (%) (Auto) 3.3H, Basophils (%) ( Auto) 1.4, Sodium Level 145, Potassium Level 4.2, Chloride Level 111H, Carbon Dioxide Level 28, Anion Gap 6, Blood Urea Nitrogen 16, Creatinine 1.3, Estimat Glomerular Filtration Rate , Glucose Level 91, Calcium Level 9.0 Height (Feet): 5 Height (Inches): 10.00 Weight (Pounds): 150 Abdomen: normal bowel sounds Pelvis: no active bleeding Genitourinary/Rectal: normal rectal exam Quincy Alvarez MD Jul 16, 2017 15:31
[2017-07-16 16:00] VITALS: BP 143/72
--- NOTE | 2017-07-16 17:05 | Infectious Diseases Prog Note ---
Assessment/Plan Problems: (1) Sepsis due to urinary tract infection Assessment & Plan: less likely with negative blood culture, urine culture grew MRSA concerned about prostatitis , already on vancomycin , will need two weeks of iv vancomycin and repeat urine culture after done with vancomycin to confirm clearance (2) UTI (urinary tract infection) Assessment & Plan: possible prostatitis with recent TURP . culture of the urine grew MRSA, on vancomycin , will treat for two weeks to cover for possible prostatitis since he had recent TURP, recommend to repeat urine culture to confirm clearance and follow up with urologist (3) Renal insufficiency Assessment & Plan: recommend hydration, and close monitor of renal function (4) Incontinence Assessment & Plan: suspect due to recent prostate surgery with TURP, recommend follow up with urologist Subjective Constitutional: Reports: no symptoms HEENT: Reports: no symptoms Respiratory: Reports: no symptoms Breasts: Reports: no symptoms Cardiovascular: Reports: no symptoms Gastrointestinal/Abdominal: Reports: no symptoms Genitourinary: Reports: other - incontinance Neurologic: Reports: no symptoms Psychiatric: Reports: no symptoms Skin: Reports: no symptoms Endocrine: Reports: no symptoms Hematologic: Reports: no symptoms Allergies: Coded Allergies: No Known Allergies (Unverified , 07/11/17) Objective Vital Signs Last 24 Hour Vital Signs Date Time Temp Pulse Resp B/P (MAP) Pulse Ox O2 Delivery O2 Flow Rate FiO2 07/16/17 16:00 97.9 79 18 143/72 97 Room Air 07/16/17 12:05 97.2 64 19 123/61 97 Room Air 07/16/17 08:22 98.2 94 20 148/75 97 Room Air 07/16/17 04:00 97.5 66 20 123/58 98 Room Air 07/16/17 00:00 97.3 78 20 110/61 98 Room Air 07/15/17 20:00 97.7 54 20 148/53 98 Room Air Height (Feet): 5 Height (Inches): 10.00 Weight (Pounds): 150 General Appearance: WD/WN, no acute distress HEENT: normocephalic, atraumatic, anicteric, mucous membranes moist, PERRL Respiratory/Chest: chest wall non-tender, lungs clear, normal breath sounds, no respiratory distress, no accessory muscle use Cardiovascular: normal peripheral pulses, normal rate, regular rhythm, no gallop/murmur, no JVD Abdomen: normal bowel sounds, soft, non tender, no organomegaly, non distended , no mass, no scars Genitourinary: normal external genitalia Extremities: no cyanosis, no clubbing Skin: no rash, no lesions, no ulcers 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, alert, oriented x 3 Laboratory Tests Test 07/16/17 05:50 White Blood Count 8.3 K/UL (4.8-10.8) Red Blood Count 4.93 M/UL (4.70-6.10) Hemoglobin 12.6 G/DL (14.2-18.0) L Hematocrit 42.3 % (42.0-52.0) Mean Corpuscular Volume 86 FL (80-99) Mean Corpuscular Hemoglobin 25.6 PG (27.0-31.0) L Mean Corpuscular Hemoglobin Concent 29.9 G/DL (32.0-36.0) L Red Cell Distribution Width 15.5 % (11.6-14.8) H Platelet Count 222 K/UL (150-450) Mean Platelet Volume 7.2 FL (6.5-10.1) Neutrophils (%) (Auto) 61.6 % (45.0-75.0) Lymphocytes (%) (Auto) 23.5 % (20.0-45.0) Monocytes (%) (Auto) 10.3 % (1.0-10.0) H Eosinophils (%) (Auto) 3.3 % (0.0-3.0) H Basophils (%) (Auto) 1.4 % (0.0-2.0) Sodium Level 145 MMOL/L (136-145) Potassium Level 4.2 MMOL/L (3.5-5.1) Chloride Level 111 MMOL/L (98-107) H Carbon Dioxide Level 28 MMOL/L (21-32) Anion Gap 6 mmol/L (5-15) Blood Urea Nitrogen 16 mg/dL (7-18) Creatinine 1.3 MG/DL (0.55-1.30) Estimat Glomerular Filtration Rate mL/min (>60) Glucose Level 91 MG/DL (74-106) Calcium Level 9.0 MG/DL (8.5-10.1) Current Medications Medications (Trade) Dose Ordered Sig/Amaya Route PRN Reason Start Time Stop Time Status Last Admin Dose Admin Acetaminophen (Tylenol) 650 mg Q4H PRN ORAL fever 07/11/17 21:15 08/10/17 21:14 Al Hydroxide/Mg Hydroxide (Mylanta II) 30 ml Q6H PRN ORAL dyspepsia 07/11/17 21:15 08/10/17 21:14 Dextrose (Dextrose 50%) STAT PRN IV Hypoglycemia 07/11/17 21:15 08/10/17 21:14 Diazepam (Valium) 5 mg HSPRN PRN ORAL Anxiety at Bedtime 07/11/17 21:30 07/18/17 20:59 07/15/17 22:51 Lorazepam (Ativan 2mg/ml 1ml) 0.5 mg Q4H PRN IV For Anxiety 07/11/17 21:15 07/18/17 21:14 Ondansetron HCl (Zofran) 4 mg Q6H PRN IVP Nausea & Vomiting 07/11/17 21:15 08/10/17 21:14 Polyethylene Glycol (Miralax) 17 gm HSPRN PRN ORAL Constipation 07/11/17 21:15 08/10/17 21:14 07/14/17 11:08 Tamsulosin HCl (Flomax) 0.4 mg BEDTIME ORAL 07/11/17 22:00 08/10/17 21:59 07/15/17 21:10 Vancomycin HCl (Vanco rx to dose) 1 ea DAILY PRN MISC Per rx protocol 07/11/17 21:00 08/10/17 20:59 Vancomycin/Sodium Chloride 250 ml @ 166.667 mls/hr DAILY@1600 IVPB 07/12/17 16:00 07/24/17 23:59 07/15/17 16:38 Zolpidem Tartrate (Ambien) 5 mg HSPRN PRN ORAL Insomnia 07/11/17 21:15 07/18/17 21:14 Margi Haque M.D. Jul 16, 2017 17:05
[2017-07-16] MEDS: Vancomycin 750mg/NS 250ml 250 ML IVPB SCH (17:10)
--- NOTE | 2017-07-16 19:29 | Nephrology Progress Note ---
Assessment/Plan Problem List: (1) UTI (urinary tract infection) (2) Renal insufficiency (3) Hypertension (4) Diabetes mellitus (5) Sepsis due to urinary tract infection (6) MRSA (methicillin resistant Staphylococcus aureus) infection Plan Continue current treatment plan Monitor lytes, correct prn DVT prophylaxis Abx per ID Subjective Constitutional: Denies: no symptoms, chills, diaphoresis, fever, malaise, weakness, other HEENT: Denies: no symptoms, eye pain, blurred vision, tearing, double vision, ear pain, ear discharge, nose pain, nose congestion, throat pain, throat swelling, mouth pain, mouth swelling, other Genitourinary: Denies: no symptoms, burning, discharge, frequency, flank pain, hematuria, incontinence, pain, urgency, other Neurologic/Psychiatric: Denies: no symptoms, anxiety, depressed, emotional problems, headache, numbness, paresthesia, pre-existing deficit, seizure, tingling, tremors, weakness, other Subjective In bed, in no distress, denies pain Objective Objective Last 24 Hour Vital Signs Date Time Temp Pulse Resp B/P (MAP) Pulse Ox O2 Delivery O2 Flow Rate FiO2 07/16/17 16:00 97.9 79 18 143/72 97 Room Air 07/16/17 12:05 97.2 64 19 123/61 97 Room Air 07/16/17 08:22 98.2 94 20 148/75 97 Room Air 07/16/17 04:00 97.5 66 20 123/58 98 Room Air 07/16/17 00:00 97.3 78 20 110/61 98 Room Air 07/15/17 20:00 97.7 54 20 148/53 98 Room Air Intake and Output 07/16/17 07/17/17 19:00 07:00 Intake Total 480 ml Balance 480 ml Intake Oral 480 ml # Voids 2 # Bowel Movements 1 Laboratory Tests 07/16/17 05:50: White Blood Count 8.3, Red Blood Count 4.93, Hemoglobin 12.6L, Hematocrit 42.3, Mean Corpuscular Volume 86, Mean Corpuscular Hemoglobin 25.6L, Mean Corpuscular Hemoglobin Concent 29.9L, Red Cell Distribution Width 15.5H, Platelet Count 222 , Mean Platelet Volume 7.2, Neutrophils (%) (Auto) 61.6, Lymphocytes (%) (Auto) 23.5, Monocytes (%) (Auto) 10.3H, Eosinophils (%) (Auto) 3.3H, Basophils (%) ( Auto) 1.4, Sodium Level 145, Potassium Level 4.2, Chloride Level 111H, Carbon Dioxide Level 28, Anion Gap 6, Blood Urea Nitrogen 16, Creatinine 1.3, Estimat Glomerular Filtration Rate , Glucose Level 91, Calcium Level 9.0 Height (Feet): 5 Height (Inches): 10.00 Weight (Pounds): 150 General Appearance: no apparent distress, alert EENT: normal ENT inspection Neck: normal alignment, supple, normal inspection Cardiovascular: normal rate, regular rhythm Respiratory/Chest: normal breath sounds, no respiratory distress Abdomen: non tender, soft, no organomegaly Extremities: non-tender, normal inspection, no calf tenderness Neurologic: alert, oriented x 3, responsive, normal mood/affect Nellie Parsons N.P. Jul 16, 2017 19:29
[2017-07-16 20:34] VITALS: BP 148/80
[2017-07-16] MEDS: Tamsulosin 0.4mg cap ORAL SCH (22:12)
[2017-07-17 00:13] VITALS: BP 125/72
[2017-07-17 04:11] VITALS: BP 150/68
[2017-07-17 08:00] VITALS: BP 144/91
--- NOTE | 2017-07-17 08:15 | General Progress Note ---
Assessment/Plan Problem List: (1) MRSA (methicillin resistant Staphylococcus aureus) infection ICD Codes: A49.02 - Methicillin resistant Staphylococcus aureus infection, unspecified site SNOMED: 183769563 (2) MRSA pyemia ICD Codes: A41.02 - Sepsis due to Methicillin resistant Staphylococcus aureus SNOMED: 644722605 (3) Sepsis due to urinary tract infection ICD Codes: A41.9 - Sepsis, unspecified organism; N39.0 - Urinary tract infection, site not specified SNOMED: 206614341 (4) Diabetes mellitus ICD Codes: E11.9 - Type 2 diabetes mellitus without complications SNOMED: 60415026 (5) Hypertension ICD Codes: I10 - Essential (primary) hypertension SNOMED: 47755009 (6) Renal insufficiency ICD Codes: N28.9 - Disorder of kidney and ureter, unspecified SNOMED: 225463564, 078932957 (7) UTI (urinary tract infection) ICD Codes: N39.0 - Urinary tract infection, site not specified SNOMED: 54887836 Qualifiers: Qualified Codes: N30.00 - Acute cystitis without hematuria Status: stable Assessment/Plan ot pt diet ivf abx cbc bmp am dc if clear by id and uro Subjective Constitutional: Reports: weakness Allergies: Coded Allergies: No Known Allergies (Unverified , 07/11/17) All Systems: reviewed and negative except above Subjective calm sitting Objective Last 24 Hour Vital Signs Date Time Temp Pulse Resp B/P (MAP) Pulse Ox O2 Delivery O2 Flow Rate FiO2 07/17/17 04:11 98.1 68 18 150/68 93 Room Air 07/17/17 00:13 97.4 77 18 125/72 98 Room Air 07/16/17 20:34 97.2 70 18 148/80 99 Room Air 07/16/17 16:00 97.9 79 18 143/72 97 Room Air 07/16/17 12:05 97.2 64 19 123/61 97 Room Air 07/16/17 08:22 98.2 94 20 148/75 97 Room Air Height (Feet): 5 Height (Inches): 10.00 Weight (Pounds): 150 General Appearance: alert EENT: normal ENT inspection Neck: normal alignment Cardiovascular: normal peripheral pulses, normal rate, regular rhythm Respiratory/Chest: chest wall non-tender, lungs clear, normal breath sounds Abdomen: normal bowel sounds, non tender, soft Extremities: normal inspection Edema: no edema noted Arm (L), no edema noted Arm (R), no edema noted Leg (L), no edema noted Leg (R), no edema noted Pedal (L), no edema noted Pedal (R), no edema noted Generalized Neurologic: responsive, motor weakness Skin: normal pigmentation, warm/dry RAVEN HAYWARD Jul 17, 2017 08:15
--- NOTE | 2017-07-17 09:10 | Pulmonology Progress Note ---
Assessment/Plan Problems: (1) Sepsis due to urinary tract infection (2) UTI (urinary tract infection) (3) Diabetes mellitus (4) Hypertension Assessment/Plan still leaking note appreciated afebrile BC are negative symptomatic treatment check electrolytes dc planning to Snif in process Subjective ROS Limited/Unobtainable: No Constitutional: Reports: no symptoms HEENT: Repors: no symptoms Allergies: Coded Allergies: No Known Allergies (Unverified , 07/11/17) Objective Last 24 Hour Vital Signs Date Time Temp Pulse Resp B/P (MAP) Pulse Ox O2 Delivery O2 Flow Rate FiO2 07/17/17 08:00 97.5 92 18 144/91 95 Room Air 07/17/17 04:11 98.1 68 18 150/68 93 Room Air 07/17/17 00:13 97.4 77 18 125/72 98 Room Air 07/16/17 20:34 97.2 70 18 148/80 99 Room Air 07/16/17 16:00 97.9 79 18 143/72 97 Room Air 07/16/17 12:05 97.2 64 19 123/61 97 Room Air Objective General Appearance: WD/WN, no apparent distress Lines, tubes and drains: peripheral, HEENT: normocephalic, anicteric Neck: non-tender, normal alignment Respiratory/Chest: chest wall non-tender, lungs clear Cardiovascular/Chest: normal rate, regular rhythm Abdomen: non tender, soft Genitourinary/Rectal: normal genital exam, normal rectal exam Extremities: normal range of motion, non-pitting Current Medications Medications (Trade) Dose Ordered Sig/Amaya Route PRN Reason Start Time Stop Time Status Last Admin Dose Admin Acetaminophen (Tylenol) 650 mg Q4H PRN ORAL fever 07/11/17 21:15 08/10/17 21:14 Al Hydroxide/Mg Hydroxide (Mylanta II) 30 ml Q6H PRN ORAL dyspepsia 07/11/17 21:15 08/10/17 21:14 Dextrose (Dextrose 50%) STAT PRN IV Hypoglycemia 07/11/17 21:15 08/10/17 21:14 Diazepam (Valium) 5 mg HSPRN PRN ORAL Anxiety at Bedtime 07/11/17 21:30 07/18/17 20:59 07/17/17 01:44 Lorazepam (Ativan 2mg/ml 1ml) 0.5 mg Q4H PRN IV For Anxiety 07/11/17 21:15 07/18/17 21:14 Ondansetron HCl (Zofran) 4 mg Q6H PRN IVP Nausea & Vomiting 07/11/17 21:15 08/10/17 21:14 Polyethylene Glycol (Miralax) 17 gm HSPRN PRN ORAL Constipation 07/11/17 21:15 08/10/17 21:14 07/14/17 11:08 Solifenacin (Vesicare) 5 mg DAILY ORAL 07/16/17 20:00 08/15/17 19:59 07/17/17 08:49 Tamsulosin HCl (Flomax) 0.4 mg BEDTIME ORAL 07/11/17 22:00 08/10/17 21:59 07/16/17 22:12 Vancomycin HCl (Vanco rx to dose) 1 ea DAILY PRN MISC Per rx protocol 07/11/17 21:00 08/10/17 20:59 Vancomycin/Sodium Chloride 250 ml @ 166.667 mls/hr DAILY@1600 IVPB 07/12/17 16:00 07/24/17 23:59 07/16/17 17:10 Zolpidem Tartrate (Ambien) 5 mg HSPRN PRN ORAL Insomnia 07/11/17 21:15 07/18/17 21:14 REGINALDO BARRIOS Jul 17, 2017 09:10
[2017-07-17] MEDS ORDERED: NS 500ML IV ONE (09:47)
[2017-07-17 12:00] VITALS: BP 138/88
[2017-07-17 16:15] VITALS: BP 134/78
[2017-07-17] MEDS: Vancomycin 750mg/NS 250ml 250 ML IVPB SCH (16:16)
--- NOTE | 2017-07-17 19:09 | Infectious Diseases Prog Note ---
Assessment/Plan Problems: (1) Sepsis due to urinary tract infection Assessment & Plan: less likely with negative blood culture, urine culture grew MRSA concerned about prostatitis , already on vancomycin , will need two weeks of iv vancomycin and repeat urine culture after done with vancomycin to confirm clearance . follow up with urology (2) UTI (urinary tract infection) Assessment & Plan: possible prostatitis with recent TURP . culture of the urine grew MRSA, on vancomycin , will treat for two weeks to cover for possible prostatitis since he had recent TURP, recommend to repeat urine culture to confirm clearance and follow up with urologist (3) Renal insufficiency Assessment & Plan: recommend hydration, and close monitor of renal function (4) Incontinence Assessment & Plan: suspect due to recent prostate surgery with TURP, recommend follow up with urologist Subjective Constitutional: Reports: no symptoms HEENT: Reports: no symptoms Respiratory: Reports: no symptoms Breasts: Reports: no symptoms Cardiovascular: Reports: no symptoms Gastrointestinal/Abdominal: Reports: no symptoms Genitourinary: Reports: other - incontinant Neurologic: Reports: no symptoms Psychiatric: Reports: no symptoms Skin: Reports: no symptoms Endocrine: Reports: no symptoms Hematologic: Reports: no symptoms Musculoskeletal: Reports: no symptoms Allergies: Coded Allergies: No Known Allergies (Unverified , 07/11/17) Objective Vital Signs Last 24 Hour Vital Signs Date Time Temp Pulse Resp B/P (MAP) Pulse Ox O2 Delivery O2 Flow Rate FiO2 07/17/17 16:15 97.7 75 22 134/78 95 Room Air 07/17/17 12:00 98.0 88 18 138/88 97 Room Air 07/17/17 08:00 97.5 92 18 144/91 95 Room Air 07/17/17 04:11 98.1 68 18 150/68 93 Room Air 07/17/17 00:13 97.4 77 18 125/72 98 Room Air 07/16/17 20:34 97.2 70 18 148/80 99 Room Air Height (Feet): 5 Height (Inches): 10.00 Weight (Pounds): 150 General Appearance: WD/WN, no acute distress HEENT: normocephalic, atraumatic, anicteric, mucous membranes moist, PERRL, EOMI, pharynx normal, supple, no JVD Respiratory/Chest: chest wall non-tender, lungs clear, normal breath sounds, no respiratory distress, no accessory muscle use Cardiovascular: normal peripheral pulses, normal rate, regular rhythm, no gallop/murmur, no JVD Abdomen: normal bowel sounds, soft, non tender, no organomegaly, non distended , no mass, no scars Extremities: no cyanosis, no clubbing Skin: no rash, no lesions, no ulcers Neurologic/Psychiatric: alert, oriented x 3 Lymphatic: no neck adenopathy, no groin adenopathy Current Medications Medications (Trade) Dose Ordered Sig/Amaya Route PRN Reason Start Time Stop Time Status Last Admin Dose Admin Acetaminophen (Tylenol) 650 mg Q4H PRN ORAL fever 07/11/17 21:15 08/10/17 21:14 Al Hydroxide/Mg Hydroxide (Mylanta II) 30 ml Q6H PRN ORAL dyspepsia 07/11/17 21:15 08/10/17 21:14 Dextrose (Dextrose 50%) STAT PRN IV Hypoglycemia 07/11/17 21:15 08/10/17 21:14 Diazepam (Valium) 5 mg HSPRN PRN ORAL Anxiety at Bedtime 07/11/17 21:30 07/18/17 20:59 07/17/17 01:44 Lorazepam (Ativan 2mg/ml 1ml) 0.5 mg Q4H PRN IV For Anxiety 07/11/17 21:15 07/18/17 21:14 Ondansetron HCl (Zofran) 4 mg Q6H PRN IVP Nausea & Vomiting 07/11/17 21:15 08/10/17 21:14 Polyethylene Glycol (Miralax) 17 gm HSPRN PRN ORAL Constipation 07/11/17 21:15 08/10/17 21:14 07/14/17 11:08 Solifenacin (Vesicare) 5 mg DAILY ORAL 07/16/17 20:00 08/15/17 19:59 07/17/17 08:49 Tamsulosin HCl (Flomax) 0.4 mg BEDTIME ORAL 07/11/17 22:00 08/10/17 21:59 07/16/17 22:12 Vancomycin HCl (Vanco rx to dose) 1 ea DAILY PRN MISC Per rx protocol 07/11/17 21:00 08/10/17 20:59 Vancomycin/Sodium Chloride 250 ml @ 166.667 mls/hr DAILY@1600 IVPB 07/12/17 16:00 07/24/17 23:59 07/17/17 16:16 Zolpidem Tartrate (Ambien) 5 mg HSPRN PRN ORAL Insomnia 07/11/17 21:15 07/18/17 21:14 Margi Haque M.D. Jul 17, 2017 19:09
[2017-07-17 20:00] VITALS: BP 123/73
[2017-07-17] MEDS: Tamsulosin 0.4mg cap ORAL SCH (21:00)
[2017-07-18] VITALS: BP 134/77
[2017-07-18 04:00] VITALS: BP 134/77
[2017-07-18 08:00] VITALS: BP 148/86
[2017-07-18 08:16] LABS: ANION GAP 6 mmol/L (5-15); CALCIUM 8.8 MG/DL (8.5-10.1); CARBON DIOXIDE 29 MMOL/L (21-32); CHLORIDE 110 MMOL/L (98-107); CREATININE 1.2 MG/DL (0.55-1.30); POTASSIUM 3.9 MMOL/L (3.5-5.1); SODIUM 145 MMOL/L (136-145)
[2017-07-18 08:27] LABS: BASOPHILS % (AUTO) 1.2 % (0.0-2.0); EOSINOPHILS % (AUTO) 2.4 % (0.0-3.0); LYMPHOCYTES % (AUTO) 22.5 % (20.0-45.0); MEAN CORPUSCULAR HEMOGLOBIN 27.4 PG (27.0-31.0); MEAN CORPUSCULAR HGB CONC 31.7 G/DL (32.0-36.0); MEAN CORPUSCULAR VOLUME 86 FL (80-99); MEAN PLATELET VOLUME 8.5 FL (6.5-10.1); MONOCYTES % (AUTO) 10.4 % (1.0-10.0); NEUTROPHILS % (AUTO) 63.5 % (45.0-75.0); PLATELET COUNT 220 K/UL (150-450); RED BLOOD COUNT 4.46 M/UL (4.70-6.10); RED CELL DISTRIBUTION WIDTH 15.6 % (11.6-14.8); WHITE BLOOD COUNT 8.1 K/UL (4.8-10.8)
--- NOTE | 2017-07-18 08:37 | General Progress Note ---
Assessment/Plan Problem List: (1) MRSA (methicillin resistant Staphylococcus aureus) infection ICD Codes: A49.02 - Methicillin resistant Staphylococcus aureus infection, unspecified site SNOMED: 055381249 (2) MRSA pyemia ICD Codes: A41.02 - Sepsis due to Methicillin resistant Staphylococcus aureus SNOMED: 114252388 (3) Sepsis due to urinary tract infection ICD Codes: A41.9 - Sepsis, unspecified organism; N39.0 - Urinary tract infection, site not specified SNOMED: 818542137 (4) Diabetes mellitus ICD Codes: E11.9 - Type 2 diabetes mellitus without complications SNOMED: 25790985 (5) Hypertension ICD Codes: I10 - Essential (primary) hypertension SNOMED: 14406164 (6) Renal insufficiency ICD Codes: N28.9 - Disorder of kidney and ureter, unspecified SNOMED: 382075295, 258460791 (7) UTI (urinary tract infection) ICD Codes: N39.0 - Urinary tract infection, site not specified SNOMED: 91645379 Qualifiers: Qualified Codes: N30.00 - Acute cystitis without hematuria Status: stable, progressing, tolerating diet Assessment/Plan ot pt diet ivf abx cbc bmp am dc if clear by id and uro Subjective Constitutional: Reports: weakness Allergies: Coded Allergies: No Known Allergies (Unverified , 07/11/17) All Systems: reviewed and negative except above Subjective calm sitting Objective Last 24 Hour Vital Signs Date Time Temp Pulse Resp B/P (MAP) Pulse Ox O2 Delivery O2 Flow Rate FiO2 07/18/17 04:00 97.0 82 20 134/77 96 Room Air 2.0 07/18/17 00:00 96.8 75 20 134/77 Room Air 07/17/17 20:00 97.9 75 20 123/73 98 Room Air 07/17/17 16:15 97.7 75 22 134/78 95 Room Air 07/17/17 12:00 98.0 88 18 138/88 97 Room Air Laboratory Tests 07/18/17 06:49: White Blood Count 8.1, Red Blood Count 4.46L, Hemoglobin 12.2L, Hematocrit 38.6L , Mean Corpuscular Volume 86, Mean Corpuscular Hemoglobin 27.4, Mean Corpuscular Hemoglobin Concent 31.7L, Red Cell Distribution Width 15.6H, Platelet Count 220, Mean Platelet Volume 8.5, Neutrophils (%) (Auto) 63.5, Lymphocytes (%) (Auto) 22.5, Monocytes (%) (Auto) 10.4H, Eosinophils (%) (Auto) 2.4, Basophils (%) (Auto) 1.2, Sodium Level 145, Potassium Level 3.9, Chloride Level 110H, Carbon Dioxide Level 29, Anion Gap 6, Blood Urea Nitrogen 16, Creatinine 1.2, Estimat Glomerular Filtration Rate , Glucose Level 95, Calcium Level 8.8 Height (Feet): 5 Height (Inches): 10.00 Weight (Pounds): 150 General Appearance: alert EENT: normal ENT inspection Neck: normal alignment Cardiovascular: normal peripheral pulses, normal rate, regular rhythm Respiratory/Chest: chest wall non-tender, lungs clear, normal breath sounds Abdomen: normal bowel sounds, non tender, soft Extremities: normal inspection Edema: no edema noted Arm (L), no edema noted Arm (R), no edema noted Leg (L), no edema noted Leg (R), no edema noted Pedal (L), no edema noted Pedal (R), no edema noted Generalized Neurologic: responsive, motor weakness Skin: normal pigmentation, warm/dry RAVEN HAYWARD Jul 18, 2017 08:37
[2017-07-18 12:00] VITALS: BP 142/81
[2017-07-18] MEDS: Vancomycin 750mg/NS 250ml 250 ML IVPB SCH (15:11)
[2017-07-18 16:03] VITALS: BP 128/68
[2017-07-18] MEDS: Eliquis 2.5mg tablet ORAL SCH (18:06)
[2017-07-18 20:00] VITALS: BP 134/65
--- NOTE | 2017-07-18 20:24 | Infectious Diseases Prog Note ---
Assessment/Plan Problems: (1) Sepsis due to urinary tract infection Assessment & Plan: less likely with negative blood culture, urine culture grew MRSA concerned about prostatitis , already on vancomycin , will need two weeks of iv vancomycin and repeat urine culture after done with vancomycin to confirm clearance . follow up with urology (2) UTI (urinary tract infection) Assessment & Plan: possible prostatitis with recent TURP . culture of the urine grew MRSA, on vancomycin , will treat for two weeks to cover for possible prostatitis since he had recent TURP, recommend to repeat urine culture to confirm clearance and follow up with urologist (3) Renal insufficiency Assessment & Plan: recommend hydration, and close monitor of renal function (4) Incontinence Assessment & Plan: suspect due to recent prostate surgery with TURP, recommend follow up with urologist Subjective Constitutional: Reports: no symptoms HEENT: Reports: no symptoms Respiratory: Reports: no symptoms Breasts: Reports: no symptoms Cardiovascular: Reports: no symptoms Gastrointestinal/Abdominal: Reports: no symptoms Genitourinary: Reports: no symptoms Neurologic: Reports: no symptoms Psychiatric: Reports: no symptoms Skin: Reports: no symptoms Endocrine: Reports: no symptoms Hematologic: Reports: no symptoms Allergies: Coded Allergies: No Known Allergies (Unverified , 07/11/17) Objective Vital Signs Last 24 Hour Vital Signs Date Time Temp Pulse Resp B/P (MAP) Pulse Ox O2 Delivery O2 Flow Rate FiO2 07/18/17 16:03 97.5 66 18 128/68 99 Room Air 07/18/17 12:00 98.0 94 18 142/81 97 Room Air 07/18/17 08:00 98.0 95 18 148/86 96 Room Air 07/18/17 04:00 97.0 82 20 134/77 96 Room Air 2.0 07/18/17 00:00 96.8 75 20 134/77 Room Air Height (Feet): 5 Height (Inches): 10.00 Weight (Pounds): 150 General Appearance: WD/WN, no acute distress HEENT: normocephalic, atraumatic, anicteric, mucous membranes moist, PERRL Respiratory/Chest: chest wall non-tender, lungs clear, normal breath sounds, no respiratory distress, no accessory muscle use Cardiovascular: normal peripheral pulses, normal rate, regular rhythm, no gallop/murmur, no JVD Abdomen: normal bowel sounds, soft, non tender, no organomegaly, non distended , no mass, no scars Genitourinary: normal external genitalia Extremities: no cyanosis, no clubbing Skin: no rash, no lesions, no ulcers Neurologic/Psychiatric: alert, responsive Laboratory Tests Test 07/18/17 06:49 White Blood Count 8.1 K/UL (4.8-10.8) Red Blood Count 4.46 M/UL (4.70-6.10) L Hemoglobin 12.2 G/DL (14.2-18.0) L Hematocrit 38.6 % (42.0-52.0) L Mean Corpuscular Volume 86 FL (80-99) Mean Corpuscular Hemoglobin 27.4 PG (27.0-31.0) Mean Corpuscular Hemoglobin Concent 31.7 G/DL (32.0-36.0) L Red Cell Distribution Width 15.6 % (11.6-14.8) H Platelet Count 220 K/UL (150-450) Mean Platelet Volume 8.5 FL (6.5-10.1) Neutrophils (%) (Auto) 63.5 % (45.0-75.0) Lymphocytes (%) (Auto) 22.5 % (20.0-45.0) Monocytes (%) (Auto) 10.4 % (1.0-10.0) H Eosinophils (%) (Auto) 2.4 % (0.0-3.0) Basophils (%) (Auto) 1.2 % (0.0-2.0) Sodium Level 145 MMOL/L (136-145) Potassium Level 3.9 MMOL/L (3.5-5.1) Chloride Level 110 MMOL/L (98-107) H Carbon Dioxide Level 29 MMOL/L (21-32) Anion Gap 6 mmol/L (5-15) Blood Urea Nitrogen 16 mg/dL (7-18) Creatinine 1.2 MG/DL (0.55-1.30) Estimat Glomerular Filtration Rate mL/min (>60) Glucose Level 95 MG/DL (74-106) Calcium Level 8.8 MG/DL (8.5-10.1) Current Medications Medications (Trade) Dose Ordered Sig/Amaya Route PRN Reason Start Time Stop Time Status Last Admin Dose Admin Acetaminophen (Tylenol) 650 mg Q4H PRN ORAL fever 07/11/17 21:15 08/10/17 21:14 Al Hydroxide/Mg Hydroxide (Mylanta II) 30 ml Q6H PRN ORAL dyspepsia 07/11/17 21:15 08/10/17 21:14 Apixaban (Eliquis) 5 mg BID ORAL 07/18/17 18:00 08/17/17 17:59 07/18/17 18:06 Ascorbic Acid (Vitamin C) 500 mg DAILY ORAL 07/19/17 09:00 08/18/17 08:59 Atorvastatin Calcium (Lipitor) 40 mg BEDTIME ORAL 07/18/17 21:00 08/17/17 20:59 Chlorhexidine Gluconate (Pippa-Hex 2%) 1 applic DAILY@2000 TOPIC 07/19/17 20:00 08/18/17 19:59 Dextrose (Dextrose 50%) STAT PRN IV Hypoglycemia 07/11/17 21:15 08/10/17 21:14 Diazepam (Valium) 5 mg HSPRN PRN ORAL Anxiety at Bedtime 07/11/17 21:30 07/18/17 20:59 07/17/17 01:44 Docusate Sodium (Colace) 100 mg DAILY ORAL 07/19/17 09:00 08/18/17 08:59 Heparin Sodium/ Sodium Chloride (Heparin 2000 units/Ns 1000ml premix) 2,000 unit ONCE PRN INJ PICC LINE 07/19/17 09:00 07/19/17 21:00 Lidocaine HCl (Xylocaine 1% 30ml) 30 ml ONCE PRN INJ PICC LINE 07/19/17 09:00 07/19/17 21:00 Lorazepam (Ativan 2mg/ml 1ml) 0.5 mg Q4H PRN IV For Anxiety 07/11/17 21:15 07/18/17 21:14 Metformin HCl (Glucophage) 500 mg ACBREAKFAST ORAL 07/19/17 06:30 08/18/17 06:29 Multivitamins (Multivitamins W/ Minerals 15ml Liquid) 15 ml DAILY ORAL 07/19/17 09:00 08/18/17 08:59 Ondansetron HCl (Zofran) 4 mg Q6H PRN IVP Nausea & Vomiting 07/11/17 21:15 08/10/17 21:14 Polyethylene Glycol (Miralax) 17 gm HSPRN PRN ORAL Constipation 07/11/17 21:15 08/10/17 21:14 07/14/17 11:08 Solifenacin (Vesicare) 5 mg DAILY ORAL 07/16/17 20:00 08/15/17 19:59 07/18/17 08:49 Tamsulosin HCl (Flomax) 0.4 mg BEDTIME ORAL 07/18/17 21:00 08/17/17 20:59 Vancomycin HCl (Vanco rx to dose) 1 ea DAILY PRN MISC Per rx protocol 07/11/17 21:00 08/10/17 20:59 Vancomycin/Sodium Chloride 250 ml @ 166.667 mls/hr DAILY@1600 IVPB 07/12/17 16:00 07/24/17 23:59 07/18/17 15:11 Zolpidem Tartrate (Ambien) 5 mg HSPRN PRN ORAL Insomnia 07/11/17 21:15 07/18/17 21:14 Margi Haque M.D. Jul 18, 2017 20:24
[2017-07-18] MEDS ORDERED: Tamsulosin 0.4mg cap ORAL SCH (21:00)
--- NOTE | 2017-07-18 21:19 | Pulmonology Progress Note ---
Assessment/Plan Problems: (1) Sepsis due to urinary tract infection (2) UTI (urinary tract infection) (3) Diabetes mellitus (4) Hypertension Assessment/Plan all noted all meds/notes reviewed still leaking note appreciated afebrile BC are negative symptomatic treatment check electrolytes dc planning to Snif in process Subjective ROS Limited/Unobtainable: Yes Allergies: Coded Allergies: No Known Allergies (Unverified , 07/11/17) Objective Last 24 Hour Vital Signs Date Time Temp Pulse Resp B/P (MAP) Pulse Ox O2 Delivery O2 Flow Rate FiO2 07/18/17 20:00 97.2 72 21 134/65 98 Room Air 07/18/17 16:03 97.5 66 18 128/68 99 Room Air 07/18/17 12:00 98.0 94 18 142/81 97 Room Air 07/18/17 08:00 98.0 95 18 148/86 96 Room Air 07/18/17 04:00 97.0 82 20 134/77 96 Room Air 2.0 07/18/17 00:00 96.8 75 20 134/77 Room Air Intake and Output 07/18/17 07/19/17 19:00 07:00 Intake Total 720 ml Balance 720 ml Intake Oral 720 ml # Voids 5 # Bowel Movements 2 Objective General Appearance: WD/WN, no apparent distress Lines, tubes and drains: peripheral, HEENT: normocephalic, anicteric Neck: non-tender, normal alignment Respiratory/Chest: chest wall non-tender, lungs clear Cardiovascular/Chest: normal rate, regular rhythm Abdomen: non tender, soft Genitourinary/Rectal: normal genital exam, normal rectal exam Extremities: normal range of motion, non-pitting Laboratory Tests 07/18/17 06:49: White Blood Count 8.1, Red Blood Count 4.46L, Hemoglobin 12.2L, Hematocrit 38.6L , Mean Corpuscular Volume 86, Mean Corpuscular Hemoglobin 27.4, Mean Corpuscular Hemoglobin Concent 31.7L, Red Cell Distribution Width 15.6H, Platelet Count 220, Mean Platelet Volume 8.5, Neutrophils (%) (Auto) 63.5, Lymphocytes (%) (Auto) 22.5, Monocytes (%) (Auto) 10.4H, Eosinophils (%) (Auto) 2.4, Basophils (%) (Auto) 1.2, Sodium Level 145, Potassium Level 3.9, Chloride Level 110H, Carbon Dioxide Level 29, Anion Gap 6, Blood Urea Nitrogen 16, Creatinine 1.2, Estimat Glomerular Filtration Rate , Glucose Level 95, Calcium Level 8.8 Current Medications Medications (Trade) Dose Ordered Sig/Amaya Route PRN Reason Start Time Stop Time Status Last Admin Dose Admin Acetaminophen (Tylenol) 650 mg Q4H PRN ORAL fever 07/11/17 21:15 08/10/17 21:14 Al Hydroxide/Mg Hydroxide (Mylanta II) 30 ml Q6H PRN ORAL dyspepsia 07/11/17 21:15 08/10/17 21:14 Apixaban (Eliquis) 5 mg BID ORAL 07/18/17 18:00 08/17/17 17:59 07/18/17 18:06 Ascorbic Acid (Vitamin C) 500 mg DAILY ORAL 07/19/17 09:00 08/18/17 08:59 Atorvastatin Calcium (Lipitor) 40 mg BEDTIME ORAL 07/18/17 21:00 08/17/17 20:59 07/18/17 21:12 Chlorhexidine Gluconate (Pippa-Hex 2%) 1 applic DAILY@2000 TOPIC 07/19/17 20:00 08/18/17 19:59 Dextrose (Dextrose 50%) STAT PRN IV Hypoglycemia 07/11/17 21:15 08/10/17 21:14 Docusate Sodium (Colace) 100 mg DAILY ORAL 07/19/17 09:00 08/18/17 08:59 Heparin Sodium/ Sodium Chloride (Heparin 2000 units/Ns 1000ml premix) 2,000 unit ONCE PRN INJ PICC LINE 07/19/17 09:00 07/19/17 21:00 Lidocaine HCl (Xylocaine 1% 30ml) 30 ml ONCE PRN INJ PICC LINE 07/19/17 09:00 07/19/17 21:00 Metformin HCl (Glucophage) 500 mg ACBREAKFAST ORAL 07/19/17 06:30 08/18/17 06:29 Multivitamins (Multivitamins W/ Minerals 15ml Liquid) 15 ml DAILY ORAL 07/19/17 09:00 08/18/17 08:59 Ondansetron HCl (Zofran) 4 mg Q6H PRN IVP Nausea & Vomiting 07/11/17 21:15 08/10/17 21:14 Polyethylene Glycol (Miralax) 17 gm HSPRN PRN ORAL Constipation 07/11/17 21:15 08/10/17 21:14 07/14/17 11:08 Solifenacin (Vesicare) 5 mg DAILY ORAL 07/16/17 20:00 08/15/17 19:59 07/18/17 08:49 Tamsulosin HCl (Flomax) 0.4 mg BEDTIME ORAL 07/18/17 21:00 08/17/17 20:59 07/18/17 21:11 Vancomycin HCl (Vanco rx to dose) 1 ea DAILY PRN MISC Per rx protocol 07/11/17 21:00 08/10/17 20:59 Vancomycin/Sodium Chloride 250 ml @ 166.667 mls/hr DAILY@1600 IVPB 07/12/17 16:00 07/24/17 23:59 07/18/17 15:11 REGINALDO BARRIOS Jul 18, 2017 21:19
[2017-07-19] VITALS: BP 146/91
[2017-07-19 04:30] VITALS: BP 136/63
[2017-07-19] MEDS ORDERED: metFORMIN 500mg tab ORAL SCH (06:30)
[2017-07-19 08:00] VITALS: BP 152/98
[2017-07-19] MEDS: Docusate 100mg cap ORAL SCH (09:00)
[2017-07-19] MEDS ORDERED: Lidocaine 1% Plain 30 ml INJ PRN (09:00)
[2017-07-19] MEDS ORDERED: Multivitamins W/Minerals 15 ML UDC ORAL SCH (09:00)
[2017-07-19] MEDS ORDERED: Heparin 2000 units/Ns 1000ml INJ PRN (09:00)
[2017-07-19] MEDS ORDERED: Ascorbic Acid 500mg tab ORAL SCH (09:00)
[2017-07-19] MEDS: Eliquis 2.5mg tablet ORAL SCH ×2 (09:36→17:27)
[2017-07-19 09:56] LABS: BASOPHILS % (AUTO) 1.2 % (0.0-2.0); EOSINOPHILS % (AUTO) 1.7 % (0.0-3.0); LYMPHOCYTES % (AUTO) 18.5 % (20.0-45.0); MEAN CORPUSCULAR HEMOGLOBIN 27.3 PG (27.0-31.0); MEAN CORPUSCULAR HGB CONC 31.5 G/DL (32.0-36.0); MEAN CORPUSCULAR VOLUME 87 FL (80-99); MONOCYTES % (AUTO) 8.9 % (1.0-10.0); NEUTROPHILS % (AUTO) 69.8 % (45.0-75.0); PLATELET COUNT 257 K/UL (150-450); RED BLOOD COUNT 5.07 M/UL (4.70-6.10); RED CELL DISTRIBUTION WIDTH 15.8 % (11.6-14.8); WHITE BLOOD COUNT 8.9 K/UL (4.8-10.8)
[2017-07-19 10:08] LABS: ANION GAP 6 mmol/L (5-15); CALCIUM 9.2 MG/DL (8.5-10.1); CARBON DIOXIDE 28 MMOL/L (21-32); CHLORIDE 109 MMOL/L (98-107); CREATININE 1.3 MG/DL (0.55-1.30); POTASSIUM 4.1 MMOL/L (3.5-5.1); SODIUM 143 MMOL/L (136-145)
[2017-07-19 12:00] VITALS: BP 146/89
--- NOTE | 2017-07-19 12:52 | General Progress Note ---
Assessment/Plan Problem List: (1) MRSA (methicillin resistant Staphylococcus aureus) infection ICD Codes: A49.02 - Methicillin resistant Staphylococcus aureus infection, unspecified site SNOMED: 296894411 (2) MRSA pyemia ICD Codes: A41.02 - Sepsis due to Methicillin resistant Staphylococcus aureus SNOMED: 023590449 (3) Sepsis due to urinary tract infection ICD Codes: A41.9 - Sepsis, unspecified organism; N39.0 - Urinary tract infection, site not specified SNOMED: 106944083 (4) Diabetes mellitus ICD Codes: E11.9 - Type 2 diabetes mellitus without complications SNOMED: 49154253 (5) Hypertension ICD Codes: I10 - Essential (primary) hypertension SNOMED: 47700345 (6) Renal insufficiency ICD Codes: N28.9 - Disorder of kidney and ureter, unspecified SNOMED: 146009942, 044382813 (7) UTI (urinary tract infection) ICD Codes: N39.0 - Urinary tract infection, site not specified SNOMED: 36911248 Qualifiers: Qualified Codes: N30.00 - Acute cystitis without hematuria Status: stable, progressing, tolerating diet Assessment/Plan ot pt diet ivf abx cbc bmp am dc if clear by id and uro Subjective Constitutional: Reports: weakness Allergies: Coded Allergies: No Known Allergies (Unverified , 07/11/17) All Systems: reviewed and negative except above Subjective calm sitting Objective Last 24 Hour Vital Signs Date Time Temp Pulse Resp B/P (MAP) Pulse Ox O2 Delivery O2 Flow Rate FiO2 07/19/17 12:00 98.1 90 18 146/89 99 Room Air 07/19/17 08:00 98.1 87 20 152/98 96 Room Air 07/19/17 04:30 97.6 75 20 136/63 96 Room Air 07/19/17 00:00 97.5 69 20 146/91 96 Room Air 07/18/17 20:00 97.2 72 21 134/65 98 Room Air 07/18/17 16:03 97.5 66 18 128/68 99 Room Air Laboratory Tests 07/19/17 08:55: White Blood Count 8.9, Red Blood Count 5.07, Hemoglobin 13.9L, Hematocrit 44.0, Mean Corpuscular Volume 87, Mean Corpuscular Hemoglobin 27.3, Mean Corpuscular Hemoglobin Concent 31.5L, Red Cell Distribution Width 15.8H, Platelet Count 257 , Mean Platelet Volume 9.0, Neutrophils (%) (Auto) 69.8, Lymphocytes (%) (Auto) 18.5L, Monocytes (%) (Auto) 8.9, Eosinophils (%) (Auto) 1.7, Basophils (%) (Auto ) 1.2, Sodium Level 143, Potassium Level 4.1, Chloride Level 109H, Carbon Dioxide Level 28, Anion Gap 6, Blood Urea Nitrogen 17, Creatinine 1.3, Estimat Glomerular Filtration Rate , Glucose Level 129H, Calcium Level 9.2 Height (Feet): 5 Height (Inches): 10.00 Weight (Pounds): 150 General Appearance: lethargic EENT: normal ENT inspection Neck: normal alignment Cardiovascular: normal peripheral pulses, normal rate, regular rhythm Respiratory/Chest: chest wall non-tender, lungs clear, normal breath sounds Abdomen: normal bowel sounds, non tender, soft Extremities: normal inspection Edema: no edema noted Arm (L), no edema noted Arm (R), no edema noted Leg (L), no edema noted Leg (R), no edema noted Pedal (L), no edema noted Pedal (R), no edema noted Generalized Neurologic: responsive, motor weakness Skin: normal pigmentation, warm/dry RAVEN HAYWARD Jul 19, 2017 12:52
--- NOTE | 2017-07-19 14:41 | Pulmonology Progress Note ---
Assessment/Plan Problems: (1) Sepsis due to urinary tract infection (2) UTI (urinary tract infection) (3) Diabetes mellitus (4) Hypertension Assessment/Plan PICC is done all meds/notes reviewed still leaking note appreciated afebrile BC are negative symptomatic treatment check electrolytes dc planning to Snif in process Subjective ROS Limited/Unobtainable: No Allergies: Coded Allergies: No Known Allergies (Unverified , 07/11/17) Objective Last 24 Hour Vital Signs Date Time Temp Pulse Resp B/P (MAP) Pulse Ox O2 Delivery O2 Flow Rate FiO2 07/19/17 12:00 98.1 90 18 146/89 99 Room Air 07/19/17 08:00 98.1 87 20 152/98 96 Room Air 07/19/17 04:30 97.6 75 20 136/63 96 Room Air 07/19/17 00:00 97.5 69 20 146/91 96 Room Air 07/18/17 20:00 97.2 72 21 134/65 98 Room Air 07/18/17 16:03 97.5 66 18 128/68 99 Room Air Objective General Appearance: WD/WN, no apparent distress Lines, tubes and drains: peripheral, HEENT: normocephalic, anicteric Neck: non-tender, normal alignment Respiratory/Chest: chest wall non-tender, lungs clear Cardiovascular/Chest: normal rate, regular rhythm Abdomen: non tender, soft Genitourinary/Rectal: normal genital exam, normal rectal exam Extremities: normal range of motion, non-pitting Laboratory Tests 07/19/17 08:55: White Blood Count 8.9, Red Blood Count 5.07, Hemoglobin 13.9L, Hematocrit 44.0, Mean Corpuscular Volume 87, Mean Corpuscular Hemoglobin 27.3, Mean Corpuscular Hemoglobin Concent 31.5L, Red Cell Distribution Width 15.8H, Platelet Count 257 , Mean Platelet Volume 9.0, Neutrophils (%) (Auto) 69.8, Lymphocytes (%) (Auto) 18.5L, Monocytes (%) (Auto) 8.9, Eosinophils (%) (Auto) 1.7, Basophils (%) (Auto ) 1.2, Sodium Level 143, Potassium Level 4.1, Chloride Level 109H, Carbon Dioxide Level 28, Anion Gap 6, Blood Urea Nitrogen 17, Creatinine 1.3, Estimat Glomerular Filtration Rate , Glucose Level 129H, Calcium Level 9.2 Current Medications Medications (Trade) Dose Ordered Sig/Amaya Route PRN Reason Start Time Stop Time Status Last Admin Dose Admin Acetaminophen (Tylenol) 650 mg Q4H PRN ORAL fever 07/11/17 21:15 08/10/17 21:14 Al Hydroxide/Mg Hydroxide (Mylanta II) 30 ml Q6H PRN ORAL dyspepsia 07/11/17 21:15 08/10/17 21:14 Apixaban (Eliquis) 5 mg BID ORAL 07/18/17 18:00 08/17/17 17:59 07/19/17 09:36 Ascorbic Acid (Vitamin C) 500 mg DAILY ORAL 07/19/17 09:00 08/18/17 08:59 07/19/17 09:36 Atorvastatin Calcium (Lipitor) 40 mg BEDTIME ORAL 07/18/17 21:00 08/17/17 20:59 07/18/17 21:12 Chlorhexidine Gluconate (Pippa-Hex 2%) 1 applic DAILY@2000 TOPIC 07/19/17 20:00 08/18/17 19:59 Dextrose (Dextrose 50%) STAT PRN IV Hypoglycemia 07/11/17 21:15 08/10/17 21:14 Docusate Sodium (Colace) 100 mg DAILY ORAL 07/19/17 09:00 08/18/17 08:59 Heparin Sodium/ Sodium Chloride (Heparin 2000 units/Ns 1000ml premix) 2,000 unit ONCE PRN INJ PICC LINE 07/19/17 09:00 07/19/17 21:00 Lidocaine HCl (Xylocaine 1% 30ml) 30 ml ONCE PRN INJ PICC LINE 07/19/17 09:00 07/19/17 21:00 Metformin HCl (Glucophage) 500 mg ACBREAKFAST ORAL 07/19/17 06:30 08/18/17 06:29 07/19/17 06:33 Multivitamins (Multivitamins W/ Minerals 15ml Liquid) 15 ml DAILY ORAL 07/19/17 09:00 08/18/17 08:59 07/19/17 09:37 Ondansetron HCl (Zofran) 4 mg Q6H PRN IVP Nausea & Vomiting 07/11/17 21:15 08/10/17 21:14 Polyethylene Glycol (Miralax) 17 gm HSPRN PRN ORAL Constipation 07/11/17 21:15 08/10/17 21:14 07/14/17 11:08 Solifenacin (Vesicare) 5 mg DAILY ORAL 07/16/17 20:00 08/15/17 19:59 07/19/17 09:35 Tamsulosin HCl (Flomax) 0.4 mg BEDTIME ORAL 07/18/17 21:00 08/17/17 20:59 07/18/17 21:11 Vancomycin HCl (Vanco rx to dose) 1 ea DAILY PRN MISC Per rx protocol 07/11/17 21:00 08/10/17 20:59 Vancomycin/Sodium Chloride 250 ml @ 166.667 mls/hr DAILY@1600 IVPB 07/12/17 16:00 07/24/17 23:59 07/18/17 15:11 REGINALDO BARRIOS Jul 19, 2017 14:41
[2017-07-19] MEDS ORDERED: VANCOMYCIN1 GM/2502 IVPB (14:54)
[2017-07-19] MEDS ORDERED: VESICARE5 MG ORAL (15:01)
[2017-07-19] MEDS ORDERED: MYLANTA II30 ML GT (15:04)
[2017-07-19] MEDS: Vancomycin 750mg/NS 250ml 250 ML IVPB SCH (15:17)
--- NOTE | 2017-07-19 15:28 | Diagnostic Imaging Report ---
Indications: Needs long-term IV access Technique: Ultrasound confirms patent compressible left brachial vein. Total sterile technique, including sterile probe cover and sterile gel, hat, mask,, sterile gown, large sterile drape, and preparation with 2% chlorhexidine utilized. Local anesthesia with 1% lidocaine. Under real-time ultrasound guidance, puncture brachial vein using 21-gauge needle, documented and archived, passage 0.018 guidewire under direct fluoroscopy, which was used to determine appropriate catheter length, exchange for 5 Turkish peel-away sheath. 5 Turkish Bard dual-lumen power PICC cut to 45 cm. It was inserted through the peel-away sheath. Peel-away sheath and guidewire removed. Catheter fixed to the skin. Both catheter ports aspirated and flushed. Patient tolerated procedure well, without immediate complication. Digital radiograph documents satisfactory catheter tip position, at the cavoatrial junction. Total fluoroscopy time one minutes. Total dose area product 8.2 dGycm2 Impression: Successful placement of left arm PICC under sonographic and fluoroscopic guidance, as described above.
[2017-07-19 16:00] VITALS: BP 139/89
--- NOTE | 2017-07-19 16:56 | Infectious Diseases Prog Note ---
Assessment/Plan Problems: (1) Sepsis due to urinary tract infection Assessment & Plan: less likely with negative blood culture, urine culture grew MRSA concerned about prostatitis , already on vancomycin , will need two weeks of iv vancomycin and repeat urine culture after done with vancomycin to confirm clearance . follow up with urology (2) UTI (urinary tract infection) Assessment & Plan: possible prostatitis with recent TURP . culture of the urine grew MRSA, on vancomycin , will treat for two weeks to cover for possible prostatitis since he had recent TURP, recommend to repeat urine culture to confirm clearance and follow up with urologist (3) Renal insufficiency Assessment & Plan: recommend hydration, and close monitor of renal function (4) Incontinence Assessment & Plan: suspect due to recent prostate surgery with TURP, recommend follow up with urologist Subjective Constitutional: Reports: no symptoms HEENT: Reports: no symptoms Respiratory: Reports: no symptoms Breasts: Reports: no symptoms Cardiovascular: Reports: no symptoms Gastrointestinal/Abdominal: Reports: no symptoms Genitourinary: Reports: other - incontinance Neurologic: Reports: no symptoms Psychiatric: Reports: no symptoms Skin: Reports: no symptoms Endocrine: Reports: no symptoms Hematologic: Reports: no symptoms Musculoskeletal: Reports: no symptoms Allergies: Coded Allergies: No Known Allergies (Unverified , 07/11/17) Objective Vital Signs Last 24 Hour Vital Signs Date Time Temp Pulse Resp B/P (MAP) Pulse Ox O2 Delivery O2 Flow Rate FiO2 07/19/17 16:00 97.3 81 19 139/89 97 Room Air 07/19/17 12:00 98.1 90 18 146/89 99 Room Air 07/19/17 08:00 98.1 87 20 152/98 96 Room Air 07/19/17 04:30 97.6 75 20 136/63 96 Room Air 07/19/17 00:00 97.5 69 20 146/91 96 Room Air 07/18/17 20:00 97.2 72 21 134/65 98 Room Air Height (Feet): 5 Height (Inches): 10.00 Weight (Pounds): 150 General Appearance: WD/WN, no acute distress HEENT: normocephalic, atraumatic, anicteric, mucous membranes moist, PERRL, EOMI, pharynx normal, supple, no JVD Respiratory/Chest: chest wall non-tender, lungs clear, normal breath sounds, no respiratory distress, no accessory muscle use Cardiovascular: normal peripheral pulses, normal rate, regular rhythm, no gallop/murmur, no JVD Abdomen: normal bowel sounds, soft, non tender, no organomegaly, non distended , no mass, no scars Extremities: no cyanosis, no clubbing Skin: no rash, no lesions, no ulcers Neurologic/Psychiatric: alert, oriented x 3 Laboratory Tests Test 07/19/17 08:55 White Blood Count 8.9 K/UL (4.8-10.8) Red Blood Count 5.07 M/UL (4.70-6.10) Hemoglobin 13.9 G/DL (14.2-18.0) L Hematocrit 44.0 % (42.0-52.0) Mean Corpuscular Volume 87 FL (80-99) Mean Corpuscular Hemoglobin 27.3 PG (27.0-31.0) Mean Corpuscular Hemoglobin Concent 31.5 G/DL (32.0-36.0) L Red Cell Distribution Width 15.8 % (11.6-14.8) H Platelet Count 257 K/UL (150-450) Mean Platelet Volume 9.0 FL (6.5-10.1) Neutrophils (%) (Auto) 69.8 % (45.0-75.0) Lymphocytes (%) (Auto) 18.5 % (20.0-45.0) L Monocytes (%) (Auto) 8.9 % (1.0-10.0) Eosinophils (%) (Auto) 1.7 % (0.0-3.0) Basophils (%) (Auto) 1.2 % (0.0-2.0) Sodium Level 143 MMOL/L (136-145) Potassium Level 4.1 MMOL/L (3.5-5.1) Chloride Level 109 MMOL/L (98-107) H Carbon Dioxide Level 28 MMOL/L (21-32) Anion Gap 6 mmol/L (5-15) Blood Urea Nitrogen 17 mg/dL (7-18) Creatinine 1.3 MG/DL (0.55-1.30) Estimat Glomerular Filtration Rate mL/min (>60) Glucose Level 129 MG/DL (74-106) H Calcium Level 9.2 MG/DL (8.5-10.1) Current Medications Medications (Trade) Dose Ordered Sig/Amaya Route PRN Reason Start Time Stop Time Status Last Admin Dose Admin Acetaminophen (Tylenol) 650 mg Q4H PRN ORAL fever 07/11/17 21:15 08/10/17 21:14 Al Hydroxide/Mg Hydroxide (Mylanta II) 30 ml Q6H PRN ORAL dyspepsia 07/11/17 21:15 08/10/17 21:14 Apixaban (Eliquis) 5 mg BID ORAL 07/18/17 18:00 08/17/17 17:59 07/19/17 09:36 Ascorbic Acid (Vitamin C) 500 mg DAILY ORAL 07/19/17 09:00 08/18/17 08:59 07/19/17 09:36 Atorvastatin Calcium (Lipitor) 40 mg BEDTIME ORAL 07/18/17 21:00 08/17/17 20:59 07/18/17 21:12 Chlorhexidine Gluconate (Pippa-Hex 2%) 1 applic DAILY@2000 TOPIC 07/19/17 20:00 08/18/17 19:59 Dextrose (Dextrose 50%) STAT PRN IV Hypoglycemia 07/11/17 21:15 08/10/17 21:14 Docusate Sodium (Colace) 100 mg DAILY ORAL 07/19/17 09:00 08/18/17 08:59 Heparin Sodium/ Sodium Chloride (Heparin 2000 units/Ns 1000ml premix) 2,000 unit ONCE PRN INJ PICC LINE 07/19/17 09:00 07/19/17 21:00 Lidocaine HCl (Xylocaine 1% 30ml) 30 ml ONCE PRN INJ PICC LINE 07/19/17 09:00 07/19/17 21:00 Metformin HCl (Glucophage) 500 mg ACBREAKFAST ORAL 07/19/17 06:30 08/18/17 06:29 07/19/17 06:33 Multivitamins (Multivitamins W/ Minerals 15ml Liquid) 15 ml DAILY ORAL 07/19/17 09:00 08/18/17 08:59 07/19/17 09:37 Ondansetron HCl (Zofran) 4 mg Q6H PRN IVP Nausea & Vomiting 07/11/17 21:15 08/10/17 21:14 Polyethylene Glycol (Miralax) 17 gm HSPRN PRN ORAL Constipation 07/11/17 21:15 08/10/17 21:14 07/14/17 11:08 Solifenacin (Vesicare) 5 mg DAILY ORAL 07/16/17 20:00 08/15/17 19:59 07/19/17 09:35 Tamsulosin HCl (Flomax) 0.4 mg BEDTIME ORAL 07/18/17 21:00 08/17/17 20:59 07/18/17 21:11 Vancomycin HCl (Vanco rx to dose) 1 ea DAILY PRN MISC Per rx protocol 07/11/17 21:00 08/10/17 20:59 Vancomycin/Sodium Chloride 250 ml @ 166.667 mls/hr DAILY@1600 IVPB 07/12/17 16:00 07/24/17 23:59 07/19/17 15:17 Margi Haque M.D. Jul 19, 2017 16:56
--- NOTE | 2017-07-19 16:57 | Nephrology Progress Note ---
Assessment/Plan Problem List: (1) UTI (urinary tract infection) (2) Renal insufficiency (3) Hypertension (4) Diabetes mellitus (5) Sepsis due to urinary tract infection (6) MRSA (methicillin resistant Staphylococcus aureus) infection Plan Continue current treatment plan FU with PCP outpt Subjective Subjective In bed, in no apparent distress, states that he's been discharged Objective Objective Last 24 Hour Vital Signs Date Time Temp Pulse Resp B/P (MAP) Pulse Ox O2 Delivery O2 Flow Rate FiO2 07/19/17 16:00 97.3 81 19 139/89 97 Room Air 07/19/17 12:00 98.1 90 18 146/89 99 Room Air 07/19/17 08:00 98.1 87 20 152/98 96 Room Air 07/19/17 04:30 97.6 75 20 136/63 96 Room Air 07/19/17 00:00 97.5 69 20 146/91 96 Room Air 07/18/17 20:00 97.2 72 21 134/65 98 Room Air Intake and Output 07/19/17 07/20/17 18:59 06:59 Intake Total 680 ml Balance 680 ml Intake Oral 680 ml # Voids 2 # Bowel Movements 1 Laboratory Tests 07/19/17 08:55: White Blood Count 8.9, Red Blood Count 5.07, Hemoglobin 13.9L, Hematocrit 44.0, Mean Corpuscular Volume 87, Mean Corpuscular Hemoglobin 27.3, Mean Corpuscular Hemoglobin Concent 31.5L, Red Cell Distribution Width 15.8H, Platelet Count 257 , Mean Platelet Volume 9.0, Neutrophils (%) (Auto) 69.8, Lymphocytes (%) (Auto) 18.5L, Monocytes (%) (Auto) 8.9, Eosinophils (%) (Auto) 1.7, Basophils (%) (Auto ) 1.2, Sodium Level 143, Potassium Level 4.1, Chloride Level 109H, Carbon Dioxide Level 28, Anion Gap 6, Blood Urea Nitrogen 17, Creatinine 1.3, Estimat Glomerular Filtration Rate , Glucose Level 129H, Calcium Level 9.2 Height (Feet): 5 Height (Inches): 10.00 Weight (Pounds): 150 General Appearance: no apparent distress, alert EENT: normal ENT inspection Neck: normal alignment, supple, normal inspection Cardiovascular: normal rate, regular rhythm, no JVD Respiratory/Chest: normal breath sounds, no respiratory distress Abdomen: non tender, soft, no organomegaly, no mass Extremities: non-tender, normal inspection Neurologic: alert, oriented x 3, responsive, normal mood/affect Nellie Parsons N.P. Jul 19, 2017 16:57
[2017-07-19 17:52] VITALS: BP 139/89
[2017-07-19] MEDS ORDERED: Dyna-Hex 2% Top Sol 2oz TOPIC SCH (20:00)
--- NOTE | 2017-07-20 14:50 | Discharge Summary ---
Discharge Summary Hospital Course Date of Admission Jul 11, 2017 at 18:55 Date of Discharge Jul 19, 2017 at 17:50 Admitting Diagnosis URINARY TRACT INFECTION HPI Kemar Pfeiffer is a 81 year old male who was admitted on Jul 11, 2017 at 18:55 for Urinary Tract Infection Hospital Course DC SUMMARY #[id number] Discharge Medications Continued Medications: Acetaminophen* (Acetaminophen 325MG Tablet*) 325 Mg Tablet 650 MG ORAL Q4H PRN for For Pain, TAB Al Hydroxide/mg Hydroxide (Mag-Al Plus Suspension) 30 Ml Oral.susp 30 ML GT, ML Apixaban (Eliquis) 5 Mg Tablet 5 MG PO BID, TAB Ascorbic Acid* (Vitamin C*) 500 Mg Tablet 500 MG ORAL DAILY, #30 TAB 0 Refills Atorvastatin Calcium* (Atorvastatin Calcium*) 40 Mg Tablet 40 MG ORAL BEDTIME, TAB Docusate Sodium* (Colace*) 100 Mg Capsule 100 MG ORAL DAILY, CAP Metformin Hcl* (Metformin Hcl*) 500 Mg Tablet 500 MG ORAL DAILY, TAB Polyethylene Glycol 3350* (Miralax*) 17 Gm Powd.pack 17 GM ORAL DAILY, PACKET Solifenacin Succinate* (Vesicare*) 5 Mg Tablet 5 MG ORAL DAILY, TAB Tamsulosin Hcl (Tamsulosin Hcl*) 0.4 Mg Cap.er.24h 0.4 MG ORAL BEDTIME, CAP Vancomycin Hcl/D5w (Vancomycin-D5w 1 G/250 Ml) 1 Gm/250 Ml Plast..bag 750 MCG IVPB Q24H for 5 Days, BAG Discharge Condition Upon Discharge: stable Discharge Disposition Patient was discharged to SNF/Subacute Facility(03) Discharge Diagnoses: Discharge Instructions Discharge Instructions Special Instructions I have been assigned to complete a D/C Summary on this account. I was not involved in the patient management Krystal Sherman NP ([place]te[place]) Jul 20, 2017 14:50
--- NOTE | 2017-07-21 04:15 | Discharge Summary 2 SIG ---
DATE OF ADMISSION: 07/11/2017 DATE OF DISCHARGE: 07/19/2017 REASON FOR ADMISSION: 81-year-old male with history of diabetes, hypertension, TURP, and chronic back pain presented to emergency department from [facility] for evaluation.. The patient denied fever, nausea, vomiting, and diarrhea. He stated that he had a Vo catheter in the past, but Vo had been removed. The patient reported no difficulty voiding on his own or pain. Workup in the emergency room revealed stable vital signs. No fever. Urinalysis was consistent with UTI. No leukocytosis. Evidence of renal insufficiency with BUN -42 and creatinine -1.5. Lactic acid was elevated, 2.1. Troponin was negative. ProBNP - 3199. EKG showed normal sinus rhythm with no acute changes. Chest x-ray revealed no acute cardiopulmonary pathology. The patient was admitted for management of UTI and renal insufficiency, and possible sepsis. HOSPITAL STAY: The patient was admitted. The patient was started on empiric antibiotics. ID consult was requested. Blood cultures were negative. Urine culture grew MRSA. Per ID,the patient will need 2 weeks of antibiotics and then repeat urine culture after completion of antibiotics to confirm clearance (to cover prostatitis since he had recent TURP). Urologist had seen the patient in the hospital and stated that the patient had recurrent UTI, status post recent TURP. He recommended prophylactic antibiotics. At this time, the patient was recommended to complete course of antibiotics and then follow up with Urology as outpatient as well as repeat urine culture to confirm clearance. The patient was on the IV fluids. Renal parameters and electrolytes were closely monitored. Level Vial Marker followed. Renal insufficiency resolved, likely secondary to dehydration. BUN from 23 down to 17 and creatinine from 1.5 down to 1.3. Pain management was provided. Blood sugar was managed with sliding scale of insulin. Blood pressure was stable with current regimen. The patient was working with physical and occupational therapists. The patient was stable for discharge to [facility]. FINAL DIAGNOSES: 1. Possible sepsis. 2. Urinary tract infection with methicillin-resistant Staphylococcus aureus. 3. History of recent transurethral resection of prostate. 4. Recurrent urinary tract infection. 5. Renal insufficiency likely secondary to dehydration. 6. Low back pain. 7. Hypertension. 8. Diabetes. DISCHARGE MEDICATIONS: See medication reconciliation list. DISCHARGE INSTRUCTIONS: The patient was discharged to [facility]. FOLLOWUP: Follow up with medical doctor at the facility and urologist as outpatient. Chris Tipton D.O. I have been assigned to dictate discharge summary on this account and I was not involved in the patient's management. Krystal Richardsonnery N.PMinh DR: AGUSTIN JOB#: [id number] CC: LITO
== END 2017-07-19 17:50 | DRG 872 ==
LOC: EDBD 16:36 → EMR 17:00 → 4E 18:55 → EDBEDREQ 20:01
PROC: 02HV33Z Insertion of Infusion Device into Superior Vena Cava, Percutaneous Approach (ICD-10-PCS; principal; 2017-07-19)
DX: A41.02 Sepsis due to Methicillin resistant Staphylococcus aureus (principal); N39.0 Urinary tract infection, site not specified; E11.9 Type 2 diabetes mellitus without complications; E86.0 Dehydration; I10 Essential (primary) hypertension; N28.9 Disorder of kidney and ureter, unspecified; G89.29 Other chronic pain; M54.5 Low back pain; K21.9 Gastro-esophageal reflux disease without esophagitis; E78.5 Hyperlipidemia, unspecified; F41.9 Anxiety disorder, unspecified; Z79.01 Long term (current) use of anticoagulants; Z66 Do not resuscitate; R32 Unspecified urinary incontinence
CPT/HCPCS: 36415; 36569; 71010; 76937; 80048; 80053; 80061; 80202; 81003; 82550; 83605; 83880; 84443; 84484; 85025; 85610; 85730; 87040; 87081; 87086; 87181; 93005; 99285

== ENCOUNTER 2018-12-13 09:16 | Outpatient (CLI) | payer MEDICARE ==
[~2018-12-13] VITALS: Ht 182.9 cm; Wt 78.5 kg
[~2018-12-13 09:16] MED LIST: ACETAMINOPHEN325 M1 ORAL; ATIVAN0.5 MG ORAL; ATORVASTATIN CA40 MG ORAL; AVODART0.5 MG ORAL; BISCOLAX10 MG RC; COLACE100 MG ORAL; DEX4 GLUCO15 GM/59 M PO; ELIQUIS5 MG PO; FLEET ENEMA133 ML RECTAL; GLUCAGON HCL1 MG IM; METFORMIN HCL500 M1 ORAL; MILK OF MA400 MG/51 ORAL; MIRALAX17 G2 ORAL; MULTIVITAMINS1 EAC8 ORAL; MYLANTA II30 ML GT; PANTOPRAZOLE SO40 MG ORAL; TAMSULOSIN HCL0.4 MG ORAL; VALIUM5 MG ORAL; VANCOMYCIN1 GM/2502 IVPB; VESICARE5 MG ORAL; VITAMIN C500 M1 ORAL
[2018-12-13] MEDS ORDERED: IBUPROFEN600 MG ORAL ×2 (14:05)
[2018-12-13 14:07] VITALS: BP 150/84
--- NOTE | 2018-12-13 20:00 | Consultation ---
DATE OF CONSULTATION: 12/13/2018 CONSULTING PHYSICIAN: Alberto Ortiz M.D. REFERRING PHYSICIAN: Chris Tipton D.O. CHIEF COMPLAINT: Constipation. HISTORY OF PRESENT ILLNESS: This is a very pleasant 83-year-old male with multiple medical problems including anemia, DVT, diabetes, who was referred to us for evaluation of chronic constipation. According to the patient, he had a colonoscopy where 8 years ago, he had some polyps, does not know how many. He is on Eliquis for DVT many years ago. Denies any hematochezia. Denies any significant weight loss. PAST MEDICAL HISTORY: 1. DVT. 2. Diabetes. 3. Anemia. 4. Hypertension. 5. Hypercholesterolemia. 6. GERD. 7. BPH. 8. Chronic back pain. 9. Spinal stenosis. PAST SURGICAL HISTORY: History of spinal surgery 6 years ago. MEDICATIONS: Please see medication reconciliation list. FAMILY HISTORY: Noncontributory. SOCIAL HISTORY: The patient denies any tobacco, alcohol, or IV drug abuse. ALLERGIES: No known drug allergies. REVIEW OF SYSTEMS: A 10-point review of systems was performed and pertinent positives in HPI. PHYSICAL EXAMINATION: VITAL SIGNS: Temperature 97.7, pulse is 80, respiration is 20, blood pressure is 150/84. HEENT: Normocephalic and atraumatic. Sclerae anicteric. NECK: Supple. No evidence of lymphadenopathy. CARDIOVASCULAR: Regular rate and rhythm. Plus S1 and S2. No obvious murmur. LUNGS: Clear to auscultation bilaterally. ABDOMEN: Positive bowel sounds. Soft and nontender. No rebound. No guarding. No peritoneal sign. EXTREMITIES: No cyanosis. No clubbing. No edema. ASSESSMENT AND PLAN: This is an 83-year-old male with anemia, history of colonic polyp, new-onset constipation. Needs colonoscopy evaluation and also endoscopy given anemia. The patient was given a sample of Linzess 72 mcg trial for daily to see if that helps some of his constipation. Also, he was offered of endoscopy and colonoscopy. Prescriptions for prep for colonoscopy was given. The patient will think about it and schedule it if he decided to have it done. On the day of procedure, we will recommend lab tests including thyroid panel, CBC, anemia workup, and also tumor markers. I want to thank, Dr. Chris Tipton, for this kind referral. Alberto Ortiz M.D. DR: ZIGGY JOB#: [id number] CC: Chris Tipton D.O.
== END 2018-12-13 15:29 | disposition home or self-care (01) ==
LOC: PAN 09:16
DX: K59.00 Constipation, unspecified (principal); D64.9 Anemia, unspecified; E11.9 Type 2 diabetes mellitus without complications; Z86.718 Personal history of other venous thrombosis and embolism; E78.00 Pure hypercholesterolemia, unspecified; K21.9 Gastro-esophageal reflux disease without esophagitis; G89.29 Other chronic pain; Z86.010 Personal history of colon polyps
CPT/HCPCS: 99202

== ENCOUNTER 2019-01-04 09:02 | Day surgery (SDC) | payer MEDICARE, MEDICAID ==
[~2019-01-04] VITALS: Ht 177.8 cm; Wt 79.4 kg
[2019-01-04] VITALS (8 sets, daily range): BP systolic 101–164; BP diastolic 59–91
--- NOTE | 2019-01-04 08:12 | Anethesia Preoperative Eval ---
Anesthesia Pre-op PMH/ROS General Date of Evaluation: January 04, 2019 Anesthesiologist: Juan ASA Score: ASA 3 Mallampati Score Class I : Soft palate, uvula, fauces, pillars visible Class II: Soft palate, uvula, fauces visible Class III: Soft palate, base of uvula visible Class IV: Only hard plate visible Mallampati Classification: Class III Surgeon: Diana Diagnosis: ABdomianl pain and GERD Surgical Procedure: EGD and colonoscopy Anesthesia History: none Family History: no anesthesia problems Allergies: Coded Allergies: No Known Allergies (Unverified , 01/04/19) Medications: see eMAR Patient NPO?: Yes NPO Date: January 04, 2019 NPO Time: 00:00 Past Medical History Cardiovascular: Reports: HTN, other - HLD; Denies: CAD, CO, valve dz, arrhythmia Pulmonary: Denies: asthma, COPD, JELANI, other Gastrointestinal/Genitourinary: Reports: GERD, other - BPH; Denies: CRI, ESRD Neurologic/Psychiatric: Reports: depression/anxiety; Denies: dementia, CVA, TIA, other Endocrine: Reports: DM; Denies: hypothyroidism, steroids, other HEENT: Denies: cataract (L), cataract (R), glaucoma, GAMBELL (L), GAMBELL (R), other Hematology/Immune: Reports: anemia - chronic; Denies: DVT, bleeding disorder, other Musculoskeletal/Integumentary: 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 Exam Physician Exam see chart Constitutional: NAD Cardiovascular: RRR Respiratory: CTA Airway Exam Mallampati Score: Class III MO: limited ROM: limited Anesthesia Pre-op A/P Labs see chart Studies Pre-op Studies: EKG - sr with RBBB Risk Assessment & Plan Assessment: ASA III Plan: MAC Status Change Before Surgery: No Pre-Antibiotics Drug: January Ribeiro MD January 04, 2019 08:12
[~2019-01-04 09:02] MED LIST changes: +DiphenhydrAMINE 50mg/ml Inj IVP PRN; +IBUPROFEN600 MG ORAL; +LR 1000ml 1,000 ML IVLG SCH
--- NOTE | 2019-01-04 09:39 | Pre-Procedure Note/Attestation ---
Pre-Procedure Note/Attestation Complete Prior to Procedure Planned Procedure: not applicable Procedure Narrative: esophagogastroduodenoscopy and colonoscopy Indications for Procedure Pre-Operative Diagnosis: screening colon, GERD Attestation I attest that I discussed the nature of the procedure; its benefits; risks and complications; and alternatives (and the risks and benefits of such alternatives ), prior to the procedure, with the patient (or the patient's legal veterans contact representative). I attest that, if there was a reasonable possibility of needing a blood transfusion, the patient (or the patient's legal veterans contact representative) was given the [facility] standardized written summary, pursuant to the Melvin Scher[employer] Blood Safety Act ([place] Health and Safety Code # 1645, as amended). I attest that I re-evaluated the patient just prior to the surgery and that there has been no change in the patient's H&P, except as documented below: Alberto Ortiz MD January 04, 2019 09:39
--- NOTE | 2019-01-04 09:40 | Short Stay Surgery H&P ---
History of Present Illness History of Present Illness Chief Complaint see office notes HPI Kemar Pfeiffer is a 83 year old male who was admitted on for Abdominal Pain, Gerd Patient History Allergies: Coded Allergies: No Known Allergies (Unverified , 01/04/19) Medication History Scheduled Apixaban (Eliquis), 2.5 MG PO BID, (Reported) Bisacodyl (Biscolax), 10 MG RC PRN, (Reported) Docusate Sodium* (Colace*), 100 MG ORAL DAILY, (Reported) Dutasteride (Avodart), 0.5 MG ORAL DAILY, (Reported) Ibuprofen* (Motrin*), 600 MG ORAL FOUR TIMES A DAY, (Reported) Magnesium Hydroxide* (Milk Of Magnesia*), 30 ML ORAL PRN, (Reported) Metformin Hcl* (Metformin Hcl*), 500 MG ORAL DAILY, (Reported) Multivitamin With Minerals (Multivitamins With Minerals*), 1 TAB ORAL DAILY, ( Reported) Pantoprazole* (Pantoprazole*), 40 MG ORAL DAILY, (Reported) Polyethylene Glycol 3350* (Miralax*), 17 GM ORAL DAILY, (Reported) Tamsulosin Hcl (Tamsulosin Hcl*), 0.4 MG ORAL BEDTIME, (Reported) Scheduled PRN Diazepam* (Valium*), 5 MG ORAL BEDTIME PRN for For Anxiety, (Reported) Glucagon HCl (Glucagon HCl), 1 UNIT IM PRN PRN for Hypoglycemia, (Reported) Ibuprofen* (Motrin*), 600 MG ORAL Q4HR PRN for For Pain, (Reported) Na Phos,M-B/Na Phos,Di-Ba* (Fleet Enema*), 133 ML RECTAL EVERY OTHER DAY PRN for Constipation, (Reported) Physical Exam Vital Signs Last Vital Signs Date Time Temp Pulse Resp B/P (MAP) Pulse Ox O2 Delivery O2 Flow Rate FiO2 01/04/19 09:34 Room Air 01/04/19 09:24 98.2 104 20 164/91 96 Plan Attestation Are the patient's medical conditions optimized for surgery? Alberto Ortiz MD January 04, 2019 09:40
[2019-01-04] MEDS ORDERED: Lidocaine 1% MPF 10mg/ml 5ml ONE (10:00)
[2019-01-04] MEDS ORDERED: Propofol 200mg/20ml IV ONE (10:00)
[2019-01-04] MEDS ORDERED: LR 1000ml ONE (10:00)
--- NOTE | 2019-01-04 10:55 | Endoscopy Procedure Note ---
Endoscopy Procedure Note General Indication for Procedure: screening, GERD Procedures Performed: EGD, colonoscopy Operative Findings/Diagnosis: gastritis, HH, 3 polyps Specimen: yes Pt Tolerated Procedure Well: Yes Estimated Blood Loss: none Anesthesia Anesthesiologist: mili Anesthesia: MAC Inserted Devices Implant(s) used?: No Quality Quality of Bowel Preparation: Good Did scope reach the cecum?: Yes GI Core Measures 50 yrs or older w/o bx or poly: No 10yrs. F/U not recommended: Yes If not recommended, why?: Above average risk 10 yrs. F/U needed: Yes 18 years or older w/prev. colo: No Alberto Ortiz MD January 04, 2019 10:55
--- NOTE | 2019-01-04 10:58 | Immediate Post-Op Evaluation ---
Immediate Post-Op Evalulation Immediate Post-Op Evalulation Procedure: EGd and colonoscopy Date of Evaluation: January 04, 2019 Time of Evaluation: 11:00 IV Fluids: 500 Blood Products: 0 Estimated Blood Loss: 0 Urinary Output: 0 Blood Pressure Systolic: 107 Blood Pressure Diastolic: 59 Pulse Rate: 73 Respiratory Rate: 16 O2 Sat by Pulse Oximetry: 98 Temperature (Fahrenheit): 97.5 Pain Score (1-10): 0 Nausea: No Vomiting: No Complications 0 Patient Status: awake, reacts, patent, none Hydration Status: adequate Drug: N/a January Beach MD January 04, 2019 10:58
--- NOTE | 2019-01-04 17:30 | Procedure Note ---
DATE OF PROCEDURE: 01/04/2019 SURGEON: Alberto Ortiz M.D. REFERRING PHYSICIAN: Chris Tipton D.O. PROCEDURE: Upper endoscopy with biopsy and colonoscopy with snare polypectomy and biopsy. ANESTHESIA: Per Dr. Martinez. INSTRUMENT: Olympus adult flexible upper endoscope and colonoscope. INDICATIONS: Screening colonoscopy evaluation and chronic GERD. REASON FOR PROCEDURE: The procedure, risks, benefits, and possible consequences, including hemorrhage, aspiration, perforation and infection, and alternative treatments, were explained to the patient/legal guardian by Dr. Alberto Ortiz and the patient/legal guardian understood and accepted these risks. PROCEDURE IN DETAIL: After informed consent was obtained and the patient was adequately sedated, Olympus upper endoscope was advanced from mouth into the second portion of duodenum and retroflexion was performed in the stomach The patient has evidence of 4 cm hiatal hernia with some irregular Z-line. There was evidence of diffuse gastritis, atrophic, [id number]. Biopsy from the antrum and body was obtained to rule out H. pylori infection. There was a small nodule in the cardia of the stomach. We could not reach it with biopsy forceps, therefore we recommend repeat endoscopy in one year for follow-up. At this time, the upper endoscope was retrieved and the patient was turned over for colonoscopy. First, rectal exam was performed, which was normal. Then, the scope was advanced from the rectum into cecum documented by appendiceal orifice, ileocecal valve, and right upper quadrant palpation. Then, the scope was advanced to the terminal ileum. Quality of prep was good. The patient had evidence of diverticulosis mostly in the left colon. The patient had a large sessile polyp in the ascending colon, measured roughly about 1.5 cm. This polyp was removed with hot snare polypectomy and was cut in few pieces to be able to suctioned through the channel of the scope. There was another large polyp in the transverse colon, may be roughly about 1 cm. This polyp was relatively flat with some deep cavity in it suspicious for with possible dysplasia. This polyp was also removed with the hot snare polypectomy technique. There was another diminutive polyp in the transverse colon, removed with the cold biopsy forceps technique. Retroflexion of rectum showed evidence of internal hemorrhoids. SUMMARY OF FINDINGS: 1. Atrophic gastritis, status post biopsy. 2. A 4 cm hiatal hernia. 3. A small nodule in the cardia of the stomach. 4. Three colonic polyps removed, see above for details. 5. Diverticulosis. 6. Internal hemorrhoids. RECOMMENDATIONS: 1. Follow up pathology and treat accordingly. 2. We recommend repeat colonoscopy no later than three years. 3. We recommend possible repeat endoscopy in one year for evaluation of the cardiac nodule to make sure it is not growing in size and biopsy at that time. I want to thank Dr. Chris Tipton for this kind referral. Alberto Ortiz M.D. DR: SALO JOB#: [id number] CC: Chris Tipton D.O.
--- NOTE | 2019-01-05 17:45 | Cardiology Report ---
APPROVED REPORT EKG Measurement Heart [id number] LA 212P [id number] Sinus tachycardia with 1st degree AV block with premature atrial complexes Right bundle branch block Abnormal ECG
== END 2019-01-04 12:00 | disposition home or self-care (01) ==
LOC: GAS 09:02
DX: Z12.11 Encounter for screening for malignant neoplasm of colon (principal); K21.9 Gastro-esophageal reflux disease without esophagitis; K44.9 Diaphragmatic hernia without obstruction or gangrene; K63.5 Polyp of colon; D12.2 Benign neoplasm of ascending colon; D12.3 Benign neoplasm of transverse colon; K57.90 Diverticulosis of intestine, part unspecified, without perforation or abscess without bleeding; K64.8 Other hemorrhoids; Z79.899 Other long term (current) drug therapy; I10 Essential (primary) hypertension; E78.5 Hyperlipidemia, unspecified; F32.9 Major depressive disorder, single episode, unspecified; F41.9 Anxiety disorder, unspecified; E11.9 Type 2 diabetes mellitus without complications; M19.90 Unspecified osteoarthritis, unspecified site; I45.10 Unspecified right bundle-branch block; K29.50 Unspecified chronic gastritis without bleeding
CPT/HCPCS: 43239; 45380; 45385; 82962; 93005; J2704; 94003; 94150

== ENCOUNTER 2019-01-24 09:45 | Outpatient (CLI) | payer MEDICARE, MEDICAID ==
[~2019-01-24 09:45] MED LIST changes: -DiphenhydrAMINE 50mg/ml Inj IVP PRN; -LR 1000ml 1,000 ML IVLG SCH
--- NOTE | 2019-01-24 10:08 | General Progress Note ---
Assessment/Plan Problem List: (1) Chronic constipation ICD Codes: K59.09 - Other constipation SNOMED: 225403445 (2) Multiple polyps of sigmoid colon ICD Codes: D12.5 - Benign neoplasm of sigmoid colon SNOMED: 930711750 (3) Gastritis ICD Codes: K29.70 - Gastritis, unspecified, without bleeding SNOMED: 2388347 (4) Diabetes mellitus ICD Codes: E11.9 - Type 2 diabetes mellitus without complications SNOMED: 60815468 (5) Hypertension ICD Codes: I10 - Essential (primary) hypertension SNOMED: 15332530 Assessment/Plan: lintrinh 72 repeat colon in 3 years Subjective ROS Limited/Unobtainable: Yes Allergies: Coded Allergies: No Known Allergies (Unverified , 01/04/19) Objective General Appearance: alert EENT: normal ENT inspection Neck: supple Cardiovascular: normal rate Respiratory/Chest: decreased breath sounds Abdomen: normal bowel sounds, non tender, soft Extremities: non-tender Alberto Ortiz MD January 24, 2019 10:08
[2019-01-24] MEDS ORDERED: LINZESS 72 MCG PO (10:11)
[2019-01-24 12:46] VITALS: BP 161/94
== END 2019-01-24 14:42 | disposition home or self-care (01) ==
LOC: PAN 09:45
DX: K59.09 Other constipation (principal); D12.5 Benign neoplasm of sigmoid colon; K29.70 Gastritis, unspecified, without bleeding; E11.9 Type 2 diabetes mellitus without complications; I10 Essential (primary) hypertension

== ENCOUNTER 2019-03-22 12:46 | Inpatient (IN) | payer MEDICARE, MEDICAID ==
[~2019-03-22] VITALS: Ht 177.8 cm; Wt 77.1 kg
[~2019-03-22 12:46] MED LIST changes: +LINZESS 72 MCG PO
[2019-03-22] MEDS ORDERED: AVODART0.5 MG ORAL (13:00)
[2019-03-22] MEDS ORDERED: VESICARE10 MG ORAL (13:01)
--- NOTE | 2019-03-22 13:18 | NUR ---
ED Nurse Note: PT BROUGHT TO ER TODAY BY AMBULANCE FROM [facility] CONV. AOX4. PER EMS, PT BROUGHT IN DUE TO C/O GENERALIZED WEAKNESS X THIS AM. PT STATES HE WAS SEEN BY MD AT [facility] THIS AM AND WAS TOLD TO GO TO ER DUE TO POSSIBLE RECURRING STROKE DUE TO HIS INCREASED HR - HR AT BEDSIDE: 104. PT STATES HE HAD A STROKE 03-12-19 AND WAS HOSPITALIZED AT [facility]. PT STATES HE HAS RIGHT SIDED WEAKNESS AFTER STROKE EARLIER THIS MONTH. MUSCLE STRENGTH 5/5 ON LEFT ARM AND LEG, 3/5 ON RIGHT LEG, AND 0/5 ON RIGHT ARM.
--- NOTE | 2019-03-22 13:20 | NUR ---
ED Nurse Note: SKIN ASSESSMENT - MULTIPLE BRUISES NOTED TO PT'S LEFT FOREARM. BLANCHABLE REDNESS NOTED TO COCCYX AREA.
[2019-03-22 13:24] VITALS: BP 132/65
[2019-03-22 13:36] LABS: EOSINOPHILS % (AUTO) 1.4 % (0.0-3.0); HEMATOCRIT 52.7 % (42.0-52.0); HEMOGLOBIN 16.8 G/DL (14.2-18.0); MEAN CORPUSCULAR VOLUME 86 FL (80-99); MONOCYTES % (AUTO) 9.9 % (1.0-10.0); NEUTROPHILS % (AUTO) 76.6 % (45.0-75.0); PLATELET COUNT 352 K/UL (150-450); RED BLOOD COUNT 6.16 M/UL (4.70-6.10); RED CELL DISTRIBUTION WIDTH 12.6 % (11.6-14.8); WHITE BLOOD COUNT 14.6 K/UL (4.8-10.8)
--- NOTE | 2019-03-22 13:43 | NUR ---
ED Nurse Note: ORDER PLACED FOR CISSE CATHETER INSERTION. 16F CISSE CATHETER INSERTED USING STERILE TECHNIQUE. CISSE DRAINING. PT TOLERATED WELL.
[2019-03-22] MEDS ORDERED: Albuterol/Ipratropium 3ml neb HHN PRN (13:45)
[2019-03-22] MEDS ORDERED: Nitroglycerin Subl 0.4mg tab SL PRN (13:45)
[2019-03-22 13:49] LABS: INR 1.1 (0.9-1.1)
[2019-03-22] MEDS ORDERED: Miralax 17gm pkt ORAL PRN (13:50)
[2019-03-22 13:57] LABS: APPEARANCE,URINE SLIGHTLY CLOUDY; BILIRUBIN, URINE NEGATIVE (NEGATIVE); COLOR,URINE PALE YELLOW; GLUCOSE, URINE (UA) NEGATIVE (NEGATIVE); KETONES,URINE NEGATIVE (NEGATIVE); LEUKOCYTE ESTERASE ,URINE 1+ (NEGATIVE); NITRITE,URINE NEGATIVE (NEGATIVE); PH,URINE 5 (4.5-8.0); PROTEIN,URINE 2+ (NEGATIVE); UROBILINOGEN,URINE NORMAL MG/DL (0.0-1.0)
[2019-03-22 13:58] LABS: ANION GAP 9 mmol/L (5-15); BLOOD UREA NITROGEN 32 mg/dL (7-18); CALCIUM 9.3 MG/DL (8.5-10.1); CARBON DIOXIDE 24 MMOL/L (21-32); CHLORIDE 110 MMOL/L (98-107); CREATININE 1.3 MG/DL (0.55-1.30); POTASSIUM 4.6 MMOL/L (3.5-5.1); SODIUM 143 MMOL/L (136-145)
[2019-03-22] MEDS ORDERED: Dextrose 50% 25ml Syringe IV PRN (14:00)
[2019-03-22 14:05] LABS: ALANINE AMINOTRANSFERASE 17 U/L (12-78); ALBUMIN 2.6 G/DL (3.4-5.0); ALBUMIN/GLOBULIN RATIO 0.6 (1.0-2.7); ALKALINE PHOSPHATASE 84 U/L (46-116); ASPARTATE AMINO TRANSFERASE 15 U/L (15-37); BILIRUBIN,TOTAL 0.6 MG/DL (0.2-1.0); CKMB 0.6 NG/ML (0.0-3.6); CREATINE KINASE 58 U/L (26-308)
--- NOTE | 2019-03-22 14:12 | Diagnostic Imaging Report ---
Indication: Dyspnea Comparison: 07/11/2017 A single view chest radiograph was obtained. Findings: The heart is enlarged. Aorta is ectatic. Scarring noted with linear densities in both upper lobes. Basilar density is also likely chronic. Bones are osteopenic. IMPRESSION: Chronic lung disease. No change
--- NOTE | 2019-03-22 14:14 | NUR ---
ED Nurse Note: PT TO CT VIA LESIA.
--- NOTE | 2019-03-22 14:31 | NUR ---
ED Nurse Note: [facility] CALLED FOR PT REPORT. REPORT GIVEN TO BRYAN MONTAÑO. WAITING FOR PT TO RETURN FROM CT THEN WILL TRANSFER PT TO [facility].
--- NOTE | 2019-03-22 14:33 | Emergency Room Report ---
History of Present Illness General Chief Complaint: Generalized Weakness Source: EMS Present Illness HPI Patient presents from nursing facility with reports of general weakness Patient himself not able to provide appropriate history Patient had sustained a reported stroke in the beginning of the month Upon evaluation he is requesting water Denies any chest pain denies any headache However again the history of present illness is limited as the patient is otherwise not able to provide other input Allergies: Coded Allergies: No Known Allergies (Unverified , 01/04/19) Patient History Limited by: medical condition Past Medical History: see triage record Reviewed Nursing Documentation: PMH: Agreed; PSxH: Agreed Nursing Documentation-PMH Hx Cardiac Problems: Yes - Anemia Hx Hypertension: Yes Hx Diabetes: Yes Hx Cancer: No Hx Gastrointestinal Problems: Yes - GERD Hx Neurological Problems: No Hx Cerebrovascular Accident: Yes - right sided deficit Review of Systems All Other Systems: limited - Other than the ones mentioned in the history of present illness all others are reviewed however they do stay limited due to the patient's mental status Physical Exam Vital Signs Date Time Temp Pulse Resp B/P (MAP) Pulse Ox O2 Delivery O2 Flow Rate FiO2 03/22/19 12:50 98.4 98 20 114/69 (84) 91 Nasal Cannula 2.0 Sp02 EP Interpretation: reviewed, normal General Appearance: no apparent distress Head: normocephalic, atraumatic Eyes: bilateral eye PERRL ENT: dry mucus membranes Neck: supple, thyroid normal Respiratory: no respiratory distress, no retraction, crackles - Bilaterally Cardiovascular #1: regular rate, rhythm Gastrointestinal: non tender, soft Musculoskeletal: other - Patient has difficult time following commands he is moving his left arm better than the right arm otherwise difficult to localize any deficit Neurologic: responsive - To physical and verbal stimuli Psychiatric: normal inspection Skin: no rash, normal color Medical Decision Making Diagnostic Impression: Primary Impression: Episode of generalized weakness Additional Impression: Dehydration ER Course Patient is a fairly complex patient with multiple differential to consideration including but not limited to cardiac cardiopulmonary and vascular emergencies Other neurological differentials also entertained patient has extensive blood work initiated Further IV hydration None at this time requires inpatient care Labs Test 03/22/19 13:10 03/22/19 13:40 White Blood Count 14.6 K/UL (4.8-10.8) Red Blood Count 6.16 M/UL (4.70-6.10) Hemoglobin 16.8 G/DL (14.2-18.0) Hematocrit 52.7 % (42.0-52.0) Mean Corpuscular Volume 86 FL (80-99) Mean Corpuscular Hemoglobin 27.2 PG (27.0-31.0) Mean Corpuscular Hemoglobin Concent 31.8 G/DL (32.0-36.0) Red Cell Distribution Width 12.6 % (11.6-14.8) Platelet Count 352 K/UL (150-450) Mean Platelet Volume 7.7 FL (6.5-10.1) Neutrophils (%) (Auto) 76.6 % (45.0-75.0) Lymphocytes (%) (Auto) 11.0 % (20.0-45.0) Monocytes (%) (Auto) 9.9 % (1.0-10.0) Eosinophils (%) (Auto) 1.4 % (0.0-3.0) Basophils (%) (Auto) 1.0 % (0.0-2.0) Prothrombin Time 11.5 SEC (9.30-11.50) Prothromb Time International Ratio 1.1 (0.9-1.1) Activated Partial Thromboplast Time 38 SEC (23-33) Sodium Level 143 MMOL/L (136-145) Potassium Level 4.6 MMOL/L (3.5-5.1) Chloride Level 110 MMOL/L (98-107) Carbon Dioxide Level 24 MMOL/L (21-32) Anion Gap 9 mmol/L (5-15) Blood Urea Nitrogen 32 mg/dL (7-18) Creatinine 1.3 MG/DL (0.55-1.30) Estimat Glomerular Filtration Rate mL/min (>60) Glucose Level 118 MG/DL (74-106) Lactic Acid Level 0.90 mmol/L (0.4-2.0) Calcium Level 9.3 MG/DL (8.5-10.1) Total Bilirubin 0.6 MG/DL (0.2-1.0) Aspartate Amino Transf (AST/SGOT) 15 U/L (15-37) Alanine Aminotransferase (ALT/SGPT) 17 U/L (12-78) Alkaline Phosphatase 84 U/L (46-116) Total Creatine Kinase 58 U/L (26-308) Creatine Kinase MB 0.6 NG/ML (0.0-3.6) Creatine Kinase MB Relative Index 1.0 Troponin I 0.006 ng/mL (0.000-0.056) Pro-B-Type Natriuretic Peptide 641 pg/mL (0-125) Total Protein 7.2 G/DL (6.4-8.2) Albumin 2.6 G/DL (3.4-5.0) Globulin 4.6 g/dL Albumin/Globulin Ratio 0.6 (1.0-2.7) Urine Color Pale yellow Urine Appearance Slightly cloudy Urine pH 5 (4.5-8.0) Urine Specific [place] 1.020 (1.005-1.035) Urine Protein 2+ (NEGATIVE) Urine Glucose (UA) Negative (NEGATIVE) Urine Ketones Negative (NEGATIVE) Urine Blood 5+ (NEGATIVE) Urine Nitrite Negative (NEGATIVE) Urine Bilirubin Negative (NEGATIVE) Urine Urobilinogen Normal MG/DL (0.0-1.0) Urine Leukocyte Esterase 1+ (NEGATIVE) Urine RBC 60-80 /HPF (0 - 0) Urine WBC 2-4 /HPF (0 - 0) Urine Squamous Epithelial Cells Occasional /LPF Urine Bacteria Occasional /HPF (NONE) Chest X-Ray Diagnostic Results Chest X-Ray Diagnostic Results : Chest X-Ray Ordered: Yes # of Views/Limited/Complete: 1 View Indication: Chest Pain EP Interpretation: Yes Interpretation: no consolidation, no effusion, other - Interstitial disease Impression: No acute disease CT/MRI/US Diagnostic Results CT/MRI/US Diagnostic Results : Impression CT headImpression: 1.4 cm lacunar infarct in the left periventricular white matter probably old. Correlate clinically. Moderate atrophy of the brain. Evidence of chronic small vessel disease involving white matter tracts. Last Vital Signs Date Time Temp Pulse Resp B/P (MAP) Pulse Ox O2 Delivery O2 Flow Rate FiO2 03/22/19 13:24 98.2 104 28 132/65 97 Nasal Cannula 2.0 Status: improved Disposition: ADMITTED INPATIENT Condition: Serious Referrals: Chris Tipton DO (PCP) Jose David Laureano DO Mar 22, 2019 14:33
--- NOTE | 2019-03-22 14:34 | NUR ---
ED Nurse Note: PT BACK FROM CT VIA LESIA.
--- NOTE | 2019-03-22 14:46 | Diagnostic Imaging Report ---
Indication: Altered mental status Technique: Contiguous 5 mm thick transaxial imaging of the head obtained in a Siemens Sensation [address] scanner. Soft tissue and bone windows generated. Automatic Exposure Control was utilized. Total Dose length Product (DLP): 1446.[address] Dose Index Volume (CTDIvol): 70.38 mGy Comparison: none Findings: There is a 1.4 cm hypodensity in the left luther radiata consistent with a lacunar infarct. This is age indeterminate but probably old. Correlate clinically. There is no acute hemorrhage. No mass effect identified. There is moderate prominence of the ventricles, basal cisterns, and cerebral sulci consistent with atrophy. Moderate, nonspecific, white matter hypoattenuation is noted throughout the brain consistent with chronic small vessel disease. There is no midline shift, edema, acute hemorrhage, mass effect, or abnormal extra-axial fluid collections. Bones are unremarkable. Impression: 1.4 cm lacunar infarct in the left periventricular white matter probably old. Correlate clinically. Moderate atrophy of the brain. Evidence of chronic small vessel disease involving white matter tracts. The CT scanner at [facility] is accredited by the [employer] and the scans are performed using dose optimization techniques as appropriate to a performed exam including Automatic Exposure control.
--- NOTE | 2019-03-22 15:13 | NUR ---
ED Nurse Note: PT TAKEN UP TO [facility] VIA GURNEY WITH ALL BELONGINGS ACCOMPANIED BY EMT. VSS.
--- NOTE | 2019-03-22 15:30 | NUR ---
NURSE NOTES: Received patient from ER by lillian. AO x4. On NC @3L/min. IV on left FA 20 g. FC draining reddish color urine. Redness on the sacral area. Orientation on unit was given. His belongings were accounted for. Bed in the lowest, locked, and alarm on. Call light within reach. Family at the bedside. Will continue to monitor
[2019-03-22 16:00] VITALS: BP 132/75
[2019-03-22] MEDS: NovoLOG Insulin Flexpen SUBQ SCH ×2 (18:21→20:32)
[2019-03-22] MEDS ORDERED: Vancomycin 1.5gm Premix IVPB ONE (18:30)
--- NOTE | 2019-03-22 19:30 | NUR ---
HAND-OFF: Report given to BRYAN Chapman.
--- NOTE | 2019-03-22 19:35 | NUR ---
NURSE NOTES: Received report from BRYAN Payan. Patient on bed alert, awake, oriented, and verbally responsive to let his needs known. Patient breathing unlabored and evenly without distress,discomfort, or SOB noted with 3L O2 via NC. Patient verbalized pain on the urinary tract (perineal area) of burning sensation. Will follow up with pain management was provided, both pharmacological and non-pharmacological measures. Was endorsed from BRYAN Payan that patient and family member questioned the necessity of the urinary catheter and that the concern was addressed to the MD and was told to keep the urinary catheter in place for now. Patient is noted with scant hematuria post new lozano insertion in ER, notified the charge nurse and will continue to monitor. Lozano patent draining urine. IV noted on the left forearm intact, dry, and patent running TKO. Caregiver at the bedside with the patient. Call light placed within reach. Will continue to monitor and provide care as ordered.
[2019-03-22 20:00] VITALS: BP 122/82
[2019-03-22] MEDS: Morphine Sulfate 2mg/ml Inj(IV/IM USE ONLY) IVP PRN (20:37)
[2019-03-22] MEDS: Heparin 5000 units/ml inj SUBQ SCH (20:55)
[2019-03-22] MEDS ORDERED: Cefepime HCl 2 GM in D5W 110 ML IV ONE (21:00)
[2019-03-22] MEDS ORDERED: Tamsulosin 0.4mg cap ORAL SCH (21:00)
[2019-03-22 23:28] LABS: APPEARANCE,URINE CLOUDY; BILIRUBIN, URINE NEGATIVE (NEGATIVE); COLOR,URINE PALE YELLOW; GLUCOSE, URINE (UA) NEGATIVE (NEGATIVE); KETONES,URINE 2+ (NEGATIVE); LEUKOCYTE ESTERASE ,URINE 1+ (NEGATIVE); NITRITE,URINE NEGATIVE (NEGATIVE); PH,URINE 5 (4.5-8.0); PROTEIN,URINE 3+ (NEGATIVE); UROBILINOGEN,URINE NORMAL MG/DL (0.0-1.0)
[2019-03-23] VITALS: BP 134/75
--- NOTE | 2019-03-23 00:05 | NUR ---
NURSE NOTES: Notified MD about continuous small amount of hematuria noted draining in patient's lozano. No new orders given yet. Will continue to monitor.
[2019-03-23] MEDS ORDERED: Vancomycin 1 GM in D5W 275 ML IV SCH (00:30)
[2019-03-23] MEDS: Morphine Sulfate 2mg/ml Inj(IV/IM USE ONLY) IVP PRN ×2 (00:45→04:52)
[2019-03-23 04:00] VITALS: BP 136/75
--- NOTE | 2019-03-23 05:15 | NUR ---
NURSE NOTES: Urinary culture sent down at 2225,03/22/19 and sputum culture sent down at 0510, today. Placed calmazine on sacral redness and optifoam prophylactically. Patient in stable condition. Call light placed within reach. Will monitor and provide care as ordered.
[2019-03-23] MEDS: NovoLOG Insulin Flexpen SUBQ SCH ×4 (06:20→21:00)
[2019-03-23 06:27] LABS: EOSINOPHILS % (AUTO) 0.7 % (0.0-3.0); LYMPHOCYTES % (AUTO) 7.3 % (20.0-45.0); MEAN CORPUSCULAR VOLUME 86 FL (80-99); NEUTROPHILS % (AUTO) 82.1 % (45.0-75.0); PLATELET COUNT 368 K/UL (150-450); RED BLOOD COUNT 5.82 M/UL (4.70-6.10); RED CELL DISTRIBUTION WIDTH 12.3 % (11.6-14.8); WHITE BLOOD COUNT 14.8 K/UL (4.8-10.8)
[2019-03-23] MEDS ORDERED: Vancomycin 750mg/NS 275ml IVPB SCH ×2 (06:30)
[2019-03-23 07:18] LABS: ALANINE AMINOTRANSFERASE 13 U/L (12-78); ALBUMIN 2.5 G/DL (3.4-5.0); ALBUMIN/GLOBULIN RATIO 0.6 (1.0-2.7); ALKALINE PHOSPHATASE 83 U/L (46-116); ANION GAP 13 mmol/L (5-15); ASPARTATE AMINO TRANSFERASE 12 U/L (15-37); BILIRUBIN,TOTAL 0.7 MG/DL (0.2-1.0); BLOOD UREA NITROGEN 38 mg/dL (7-18); CARBON DIOXIDE 21 MMOL/L (21-32); CHLORIDE 110 MMOL/L (98-107); CREATININE 1.5 MG/DL (0.55-1.30); POTASSIUM 5.1 MMOL/L (3.5-5.1); SODIUM 143 MMOL/L (136-145)
--- NOTE | 2019-03-23 07:30 | NUR ---
HAND-OFF: Report given to BRYAN Ambriz. Patient in stable condition.
--- NOTE | 2019-03-23 07:40 | NUR ---
NURSE NOTES: Received patient in bed, alert and oriented x3. Not in respiratory/cardiac distress. breathing is even and unlabored. Lozano is intact draining dark caleb colored urine. Flushed lozano with 50cc. Will continue to monitor. Patient's all personnel items within reach.IV intact, no s/s of infiltration. Call light within reach. Will con't plan of care.
[2019-03-23 08:00] VITALS: BP 101/68
[2019-03-23] MEDS: Heparin 5000 units/ml inj SUBQ SCH ×2 (08:57→21:20)
[2019-03-23] MEDS ORDERED: Cefepime HCl 2 GM in D5W 110 ML IV SCH (09:00)
[2019-03-23] MEDS ORDERED: Solifenacin 10mg tab ORAL SCH (09:00)
[2019-03-23 12:00] VITALS: BP 116/62
--- NOTE | 2019-03-23 14:22 | NUR ---
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 CC:GENERALIZED WEAKNESS SI:WEAKNESS . DEHYDRATION VS: BP 132/65, P 106, T 98.2, RR 28, SpO2 97 on 2.0L NC WBC 14.6, RBC 6.16, Hct 52.7, BUN 32, IS:D50 IV ADMITTED TO MED/SURG DCP: RETURN TO [facility]
--- NOTE | 2019-03-23 15:17 | Consultation ---
History of Present Illness General Date patient seen: Mar 23, 2019 Chief Complaint: Generalized Weakness Present Illness HPI 83 y/o M with hx of anemia, GERD, CVA w/ R side deficit, DM2 presents to ED on with generalized weakness. Allergies: Coded Allergies: No Known Allergies (Unverified , 01/04/19) Medication History Scheduled Apixaban (Eliquis), 5 MG PO BID, (Reported) Bisacodyl (Biscolax), 10 MG RC PRN, (Reported) Docusate Sodium* (Colace*), 100 MG ORAL DAILY, (Reported) Dutasteride (Avodart), 0.5 MG ORAL DAILY, (Reported) Dutasteride (Avodart), 0.5 MG ORAL DAILY, (Reported) Ibuprofen* (Motrin*), 600 MG ORAL FOUR TIMES A DAY, (Reported) Magnesium Hydroxide* (Milk Of Magnesia*), 30 ML ORAL PRN, (Reported) Metformin Hcl* (Metformin Hcl*), 500 MG ORAL DAILY, (Reported) Multivitamin With Minerals (Multivitamins With Minerals*), 1 TAB ORAL DAILY, ( Reported) Pantoprazole* (Pantoprazole*), 40 MG ORAL DAILY, (Reported) Polyethylene Glycol 3350* (Miralax*), 17 GM ORAL DAILY, (Reported) Solifenacin Succinate (Vesicare*), 10 MG ORAL DAILY, (Reported) Tamsulosin Hcl (Tamsulosin Hcl*), 0.4 MG ORAL BEDTIME, (Reported) [Linzess 72 Mcg ], 290 MCG PO DAILY, (Reported) Scheduled PRN Diazepam* (Valium*), 5 MG ORAL BEDTIME PRN for For Anxiety, (Reported) Glucagon HCl (Glucagon HCl), 1 UNIT IM PRN PRN for Hypoglycemia, (Reported) Ibuprofen* (Motrin*), 600 MG ORAL Q4HR PRN for For Pain, (Reported) Na Phos,M-B/Na Phos,Di-Ba* (Fleet Enema*), 133 ML RECTAL EVERY OTHER DAY PRN for Constipation, (Reported) Patient History Healthcare decision maker N Resuscitation status Full Code Advanced Directive on File No Physical Exam Last 24 Hour Vital Signs Date Time Temp Pulse Resp B/P (MAP) Pulse Ox O2 Delivery O2 Flow Rate FiO2 03/23/19 12:00 97.7 101 20 116/62 (80) 99 03/23/19 09:00 Nasal Cannula 3.0 03/23/19 08:00 97.4 96 20 101/68 (79) 96 03/23/19 04:00 98.4 104 22 136/75 (95) 95 03/23/19 01:15 99.4 03/23/19 00:00 99.4 108 20 134/75 (94) 98 03/22/19 21:00 Nasal Cannula 3.0 03/22/19 20:00 98.4 109 20 122/82 (95) 100 03/22/19 16:00 98.1 102 18 132/75 (94) 95 03/22/19 15:35 Nasal Cannula 3.0 03/22/19 15:13 98.3 106 24 128/68 98 Nasal Cannula 2.0 Intake and Output 03/22/19 03/23/19 19:00 07:00 Intake Total 110 ml Output Total 15 ml 500 ml Balance -15 ml -390 ml Intake IV Total 110 ml Output Urine Total 15 ml 500 ml # Voids 2 # Bowel Movements 1 Laboratory Tests Test 03/22/19 22:55 03/23/19 05:46 Urine Color Pale yellow Urine Appearance Cloudy Urine pH 5 (4.5-8.0) Urine Specific [place] 1.020 (1.005-1.035) Urine Protein 3+ (NEGATIVE) H Urine Glucose (UA) Negative (NEGATIVE) Urine Ketones 2+ (NEGATIVE) H Urine Blood 5+ (NEGATIVE) H Urine Nitrite Negative (NEGATIVE) Urine Bilirubin Negative (NEGATIVE) Urine Urobilinogen Normal MG/DL (0.0-1.0) Urine Leukocyte Esterase 1+ (NEGATIVE) H Urine RBC Tntc /HPF (0 - 0) H Urine WBC 0-2 /HPF (0 - 0) Urine Squamous Epithelial Cells None /LPF (NONE/OCC) Urine Bacteria Moderate /HPF (NONE) H White Blood Count 14.8 K/UL (4.8-10.8) H Red Blood Count 5.82 M/UL (4.70-6.10) Hemoglobin 16.0 G/DL (14.2-18.0) Hematocrit 50.0 % (42.0-52.0) Mean Corpuscular Volume 86 FL (80-99) Mean Corpuscular Hemoglobin 27.6 PG (27.0-31.0) Mean Corpuscular Hemoglobin Concent 32.1 G/DL (32.0-36.0) Red Cell Distribution Width 12.3 % (11.6-14.8) Platelet Count 368 K/UL (150-450) Mean Platelet Volume 7.1 FL (6.5-10.1) Neutrophils (%) (Auto) 82.1 % (45.0-75.0) H Lymphocytes (%) (Auto) 7.3 % (20.0-45.0) L Monocytes (%) (Auto) 9.0 % (1.0-10.0) Eosinophils (%) (Auto) 0.7 % (0.0-3.0) Basophils (%) (Auto) 1.0 % (0.0-2.0) Sodium Level 143 MMOL/L (136-145) Potassium Level 5.1 MMOL/L (3.5-5.1) Chloride Level 110 MMOL/L (98-107) H Carbon Dioxide Level 21 MMOL/L (21-32) Anion Gap 13 mmol/L (5-15) Blood Urea Nitrogen 38 mg/dL (7-18) H Creatinine 1.5 MG/DL (0.55-1.30) H Estimat Glomerular Filtration Rate mL/min (>60) Glucose Level 128 MG/DL (74-106) H Calcium Level 9.0 MG/DL (8.5-10.1) Total Bilirubin 0.7 MG/DL (0.2-1.0) Aspartate Amino Transf (AST/SGOT) 12 U/L (15-37) L Alanine Aminotransferase (ALT/SGPT) 13 U/L (12-78) Alkaline Phosphatase 83 U/L (46-116) Total Protein 7.0 G/DL (6.4-8.2) Albumin 2.5 G/DL (3.4-5.0) L Globulin 4.5 g/dL Albumin/Globulin Ratio 0.6 (1.0-2.7) L Height (Feet): 5 Height (Inches): 10.00 Weight (Pounds): 170 Medications Current Medications Medications (Trade) Dose Ordered Sig/Amaya Route PRN Reason Start Time Stop Time Status Last Admin Dose Admin Acetaminophen (Tylenol) 650 mg Q4H PRN ORAL fever 03/22/19 13:45 8/16/19 13:44 Albuterol/ Ipratropium (Albuterol/ Ipratropium) 3 ml Q4H PRN HHN Shortness of Breath 03/22/19 13:45 03/27/19 13:44 Cefepime HCl 2 gm/ Dextrose 110 ml @ 220 mls/hr Q24H IV 03/23/19 09:00 03/30/19 08:59 03/23/19 10:20 Dextrose (Dextrose 50%) 25 ml Q30M PRN IV Hypoglycemia 03/22/19 14:00 04/21/19 13:45 Dextrose (Dextrose 50%) 50 ml Q30M PRN IV hypoglycemia 03/22/19 14:00 04/21/19 13:59 Diazepam (Valium) 5 mg BEDTIME PRN ORAL For Anxiety 03/22/19 13:45 03/29/19 13:44 Heparin Sodium (Porcine) (Heparin 5000 units/ml) 5,000 units EVERY 12 HOURS SUBQ 03/22/19 21:00 04/21/19 20:59 03/22/19 20:55 Insulin Aspart (NovoLOG) BEFORE MEALS AND HS SUBQ 03/22/19 16:30 04/21/19 16:29 03/23/19 11:56 Morphine Sulfate (Morphine Sulfate) 2 mg Q4H PRN IVP Moderate Pain (Pain Scale 4-6) 03/22/19 13:45 03/29/19 13:44 03/23/19 04:52 Nitroglycerin (Ntg) 0.4 mg Q5M PRN SL Prn Chest Pain 03/22/19 13:45 04/21/19 13:44 Ondansetron HCl (Zofran) 4 mg Q6H PRN IVP Nausea & Vomiting 03/22/19 13:50 04/21/19 13:49 Polyethylene Glycol (Miralax) 17 gm DAILYPRN PRN ORAL Constipation 03/22/19 13:50 04/21/19 13:49 Solifenacin (Vesicare) 10 mg DAILY ORAL 03/23/19 09:00 04/22/19 08:59 03/23/19 08:58 Tamsulosin HCl (Flomax) 0.4 mg BEDTIME ORAL 03/22/19 21:00 04/21/19 20:59 03/22/19 20:37 Temazepam (Restoril) 15 mg HSPRN PRN ORAL Insomnia 03/22/19 13:45 03/29/19 13:44 Vancomycin HCl (Vanco rx to dose) 1 ea DAILY PRN MISC Per rx protocol 03/22/19 17:45 04/21/19 17:44 Vancomycin HCl 750 mg/Sodium Chloride 275 ml @ 183.333 mls/hr Q12H IVPB 03/23/19 06:30 03/28/19 06:29 03/22/19 18:31 Assessment/Plan Assessment/Plan: Abx: IV Vancomycin 03/22- Cefepime 03/22- Assessment: Probable UTI (+hematuria, leukocytosis) Afebrile Mild leukocytosis Generalized weakness -CT head: 1.4 cm lacunar infarct in the left periventricular white matter probably old. Correlate clinically. Moderate atrophy of the brain. Evidence of chronic small vessel disease involving white matter tracts. CATHERINE anemia GERD CVA w/ R side deficit DM2 Plan: -D/c IV Vancomycin #2 -Switch empiric CEfepime #2 to Ceftriaxone pending UCx -if ucx neg, will d/c -f/u cx -Monitor CBC/CMP, temperatures -CBC, CMP am Thank you for this consultation. Will continue to follow along with you. Discussed with BRYAN. Daly Sánchez M.D. Mar 23, 2019 15:16
--- NOTE | 2019-03-23 15:35 | Consultation ---
Consult Note Consult Note asked to eval for rising Cr ER: Chief Complaint: Generalized Weakness No Known Allergies (Unverified , 01/04/19) Hx Cardiac Problems: Yes - Anemia Hx Hypertension: Yes Hx Diabetes: Yes Hx Gastrointestinal Problems: Yes - GERD Hx Cerebrovascular Accident: Yes - right sided deficit . Assessment/Plan Renal failure- mainly dehydration h/o anemia GERD CVA w/ R side deficit DM2 UTI Hydrate- Antibiotics Monitor renal parameters avoid nephrotoxics Devonte Zuniga MD Mar 23, 2019 15:35
[2019-03-23 16:00] VITALS: BP 134/75
--- NOTE | 2019-03-23 16:02 | NUR ---
SPEECH PATHOLOGY: BEDSIDE SWALLOW EVALUATION COMPLETED POST CHART REVIEW AND INTERVIEW WITH RN, PATIENT AND SISTER WHO WAS AT BEDSIDE. DYSPHAGIA RISK FACTORS FOR THIS 83 YEAR OLD MALE: HX OF RECURRING CVA'S, GENERALIZED WEAKNESS/DECONDITIONING, MILD OROPHARYNGEAL DYSPHAGIA A RESULT OF SLOWED MASTICATION TIME, WEAK LABIAL SEAL ON R/SIDE, MILDLY DELAYED OROPHARYNGEAL TRANSIT TIME, FAIR LARYNGEAL ELEVATION. NO OVERT S/S OF ASPIRATION. TOLERATING CURRENT REGULAR DIET WITH NO DIFFICULTY. MINIMAL ANTERIOR SPILLAGE WITH LIQUIDS ON R/SIDE. PATIENT REPORTS VARIABLE INTELLIGIBILITY AND VOICING PROPORTIONATE TO FATIGUE. RECOMMENDATIONS: 1. CONTINUE CURRENT DIET 2. ST INTERVENTION TO PROVIDE NEUROMUSCULAR EXERCISES TO ADDRESS DEFICITS IN ORAL MOTOR STRENGTH/ROM/COORDINATION 3. VFSS IF NEEDED 4. ONGOING ASSESSMENT 5. PATIENT/FAMILY/CAREGIVER EDUCATION D/W BRYAN ÁLVAREZ, PATIENT AND FAMILY.
--- NOTE | 2019-03-23 16:56 | Consultation ---
History of Present Illness General Chief Complaint: Generalized Weakness Present Illness Allergies: Coded Allergies: No Known Allergies (Unverified , 01/04/19) Medication History Scheduled Apixaban (Eliquis), 5 MG PO BID, (Reported) Bisacodyl (Biscolax), 10 MG RC PRN, (Reported) Docusate Sodium* (Colace*), 100 MG ORAL DAILY, (Reported) Dutasteride (Avodart), 0.5 MG ORAL DAILY, (Reported) Dutasteride (Avodart), 0.5 MG ORAL DAILY, (Reported) Ibuprofen* (Motrin*), 600 MG ORAL FOUR TIMES A DAY, (Reported) Magnesium Hydroxide* (Milk Of Magnesia*), 30 ML ORAL PRN, (Reported) Metformin Hcl* (Metformin Hcl*), 500 MG ORAL DAILY, (Reported) Multivitamin With Minerals (Multivitamins With Minerals*), 1 TAB ORAL DAILY, ( Reported) Pantoprazole* (Pantoprazole*), 40 MG ORAL DAILY, (Reported) Polyethylene Glycol 3350* (Miralax*), 17 GM ORAL DAILY, (Reported) Solifenacin Succinate (Vesicare*), 10 MG ORAL DAILY, (Reported) Tamsulosin Hcl (Tamsulosin Hcl*), 0.4 MG ORAL BEDTIME, (Reported) [Linzess 72 Mcg ], 290 MCG PO DAILY, (Reported) Scheduled PRN Diazepam* (Valium*), 5 MG ORAL BEDTIME PRN for For Anxiety, (Reported) Glucagon HCl (Glucagon HCl), 1 UNIT IM PRN PRN for Hypoglycemia, (Reported) Ibuprofen* (Motrin*), 600 MG ORAL Q4HR PRN for For Pain, (Reported) Na Phos,M-B/Na Phos,Di-Ba* (Fleet Enema*), 133 ML RECTAL EVERY OTHER DAY PRN for Constipation, (Reported) Patient History Healthcare decision maker N Resuscitation status Full Code Advanced Directive on File No Physical Exam Last 24 Hour Vital Signs Date Time Temp Pulse Resp B/P (MAP) Pulse Ox O2 Delivery O2 Flow Rate FiO2 03/23/19 12:00 97.7 101 20 116/62 (80) 99 03/23/19 09:00 Nasal Cannula 3.0 03/23/19 08:00 97.4 96 20 101/68 (79) 96 03/23/19 04:00 98.4 104 22 136/75 (95) 95 03/23/19 01:15 99.4 03/23/19 00:00 99.4 108 20 134/75 (94) 98 03/22/19 21:00 Nasal Cannula 3.0 03/22/19 20:00 98.4 109 20 122/82 (95) 100 Intake and Output 03/22/19 03/23/19 19:00 07:00 Intake Total 110 ml Output Total 15 ml 500 ml Balance -15 ml -390 ml Intake IV Total 110 ml Output Urine Total 15 ml 500 ml # Voids 2 # Bowel Movements 1 Laboratory Tests Test 03/22/19 22:55 03/23/19 05:46 Urine Color Pale yellow Urine Appearance Cloudy Urine pH 5 (4.5-8.0) Urine Specific [place] 1.020 (1.005-1.035) Urine Protein 3+ (NEGATIVE) H Urine Glucose (UA) Negative (NEGATIVE) Urine Ketones 2+ (NEGATIVE) H Urine Blood 5+ (NEGATIVE) H Urine Nitrite Negative (NEGATIVE) Urine Bilirubin Negative (NEGATIVE) Urine Urobilinogen Normal MG/DL (0.0-1.0) Urine Leukocyte Esterase 1+ (NEGATIVE) H Urine RBC Tntc /HPF (0 - 0) H Urine WBC 0-2 /HPF (0 - 0) Urine Squamous Epithelial Cells None /LPF (NONE/OCC) Urine Bacteria Moderate /HPF (NONE) H White Blood Count 14.8 K/UL (4.8-10.8) H Red Blood Count 5.82 M/UL (4.70-6.10) Hemoglobin 16.0 G/DL (14.2-18.0) Hematocrit 50.0 % (42.0-52.0) Mean Corpuscular Volume 86 FL (80-99) Mean Corpuscular Hemoglobin 27.6 PG (27.0-31.0) Mean Corpuscular Hemoglobin Concent 32.1 G/DL (32.0-36.0) Red Cell Distribution Width 12.3 % (11.6-14.8) Platelet Count 368 K/UL (150-450) Mean Platelet Volume 7.1 FL (6.5-10.1) Neutrophils (%) (Auto) 82.1 % (45.0-75.0) H Lymphocytes (%) (Auto) 7.3 % (20.0-45.0) L Monocytes (%) (Auto) 9.0 % (1.0-10.0) Eosinophils (%) (Auto) 0.7 % (0.0-3.0) Basophils (%) (Auto) 1.0 % (0.0-2.0) Sodium Level 143 MMOL/L (136-145) Potassium Level 5.1 MMOL/L (3.5-5.1) Chloride Level 110 MMOL/L (98-107) H Carbon Dioxide Level 21 MMOL/L (21-32) Anion Gap 13 mmol/L (5-15) Blood Urea Nitrogen 38 mg/dL (7-18) H Creatinine 1.5 MG/DL (0.55-1.30) H Estimat Glomerular Filtration Rate mL/min (>60) Glucose Level 128 MG/DL (74-106) H Calcium Level 9.0 MG/DL (8.5-10.1) Total Bilirubin 0.7 MG/DL (0.2-1.0) Aspartate Amino Transf (AST/SGOT) 12 U/L (15-37) L Alanine Aminotransferase (ALT/SGPT) 13 U/L (12-78) Alkaline Phosphatase 83 U/L (46-116) Total Protein 7.0 G/DL (6.4-8.2) Albumin 2.5 G/DL (3.4-5.0) L Globulin 4.5 g/dL Albumin/Globulin Ratio 0.6 (1.0-2.7) L Height (Feet): 5 Height (Inches): 10.00 Weight (Pounds): 170 Medications Current Medications Medications (Trade) Dose Ordered Sig/Amaya Route PRN Reason Start Time Stop Time Status Last Admin Dose Admin Acetaminophen (Tylenol) 650 mg Q4H PRN ORAL fever 03/22/19 13:45 04/21/19 13:44 Albuterol/ Ipratropium (Albuterol/ Ipratropium) 3 ml Q4H PRN HHN Shortness of Breath 03/22/19 13:45 03/27/19 13:44 Ceftriaxone Sodium 1 gm/ Dextrose 55 ml @ 110 mls/hr Q24H IVPB 03/24/19 10:00 03/31/19 09:59 Dextrose (Dextrose 50%) 25 ml Q30M PRN IV Hypoglycemia 03/22/19 14:00 04/21/19 13:45 Dextrose (Dextrose 50%) 50 ml Q30M PRN IV hypoglycemia 03/22/19 14:00 04/21/19 13:59 Diazepam (Valium) 5 mg BEDTIME PRN ORAL For Anxiety 03/22/19 13:45 03/29/19 13:44 Docusate Sodium (Colace) 100 mg TID ORAL 03/23/19 18:00 04/22/19 17:59 Heparin Sodium (Porcine) (Heparin 5000 units/ml) 5,000 units EVERY 12 HOURS SUBQ 03/22/19 21:00 04/21/19 20:59 03/22/19 20:55 Insulin Aspart (NovoLOG) BEFORE MEALS AND HS SUBQ 03/22/19 16:30 04/21/19 16:29 03/23/19 11:56 Morphine Sulfate (Morphine Sulfate) 2 mg Q4H PRN IVP Moderate Pain (Pain Scale 4-6) 03/22/19 13:45 03/29/19 13:44 03/23/19 04:52 Nitroglycerin (Ntg) 0.4 mg Q5M PRN SL Prn Chest Pain 03/22/19 13:45 04/21/19 13:44 Ondansetron HCl (Zofran) 4 mg Q6H PRN IVP Nausea & Vomiting 03/22/19 13:50 04/21/19 13:49 Pantoprazole (Protonix) 40 mg DAILY ORAL 03/24/19 09:00 04/23/19 08:59 Polyethylene Glycol (Miralax) 17 gm DAILYPRN PRN ORAL Constipation 03/22/19 13:50 04/21/19 13:49 Sodium Chloride 1,000 ml @ 75 mls/hr [id number] IV 03/23/19 15:45 04/22/19 15:44 Solifenacin (Vesicare) 10 mg DAILY ORAL 03/23/19 09:00 04/22/19 08:59 03/23/19 08:58 Tamsulosin HCl (Flomax) 0.4 mg BID ORAL 03/23/19 18:00 04/21/19 20:59 Temazepam (Restoril) 15 mg HSPRN PRN ORAL Insomnia 03/22/19 13:45 03/29/19 13:44 Assessment/Plan Problem List: (1) Sepsis due to urinary tract infection ICD Codes: A41.9 - Sepsis, unspecified organism; N39.0 - Urinary tract infection, site not specified SNOMED: 559078835 (2) Diabetes mellitus ICD Codes: E11.9 - Type 2 diabetes mellitus without complications SNOMED: 69965440 (3) Episode of generalized weakness ICD Codes: R53.1 - Weakness SNOMED: 67423162 Angelita Alarcon MD Mar 23, 2019 16:56
--- NOTE | 2019-03-23 17:29 | Cardiac Electrophysiology PN ---
Subjective Subjective [id number] Objective Last 24 Hour Vital Signs Date Time Temp Pulse Resp B/P (MAP) Pulse Ox O2 Delivery O2 Flow Rate FiO2 03/23/19 12:00 97.7 101 20 116/62 (80) 99 03/23/19 09:00 Nasal Cannula 3.0 03/23/19 08:00 97.4 96 20 101/68 (79) 96 03/23/19 04:00 98.4 104 22 136/75 (95) 95 03/23/19 01:15 99.4 03/23/19 00:00 99.4 108 20 134/75 (94) 98 03/22/19 21:00 Nasal Cannula 3.0 03/22/19 20:00 98.4 109 20 122/82 (95) 100 Intake and Output 03/22/19 03/23/19 19:00 07:00 Intake Total 110 ml Output Total 15 ml 500 ml Balance -15 ml -390 ml Intake IV Total 110 ml Output Urine Total 15 ml 500 ml # Voids 2 # Bowel Movements 1 Laboratory Tests Test 03/22/19 22:55 03/23/19 05:46 Urine Color Pale yellow Urine Appearance Cloudy Urine pH 5 (4.5-8.0) Urine Specific [place] 1.020 (1.005-1.035) Urine Protein 3+ (NEGATIVE) H Urine Glucose (UA) Negative (NEGATIVE) Urine Ketones 2+ (NEGATIVE) H Urine Blood 5+ (NEGATIVE) H Urine Nitrite Negative (NEGATIVE) Urine Bilirubin Negative (NEGATIVE) Urine Urobilinogen Normal MG/DL (0.0-1.0) Urine Leukocyte Esterase 1+ (NEGATIVE) H Urine RBC Tntc /HPF (0 - 0) H Urine WBC 0-2 /HPF (0 - 0) Urine Squamous Epithelial Cells None /LPF (NONE/OCC) Urine Bacteria Moderate /HPF (NONE) H White Blood Count 14.8 K/UL (4.8-10.8) H Red Blood Count 5.82 M/UL (4.70-6.10) Hemoglobin 16.0 G/DL (14.2-18.0) Hematocrit 50.0 % (42.0-52.0) Mean Corpuscular Volume 86 FL (80-99) Mean Corpuscular Hemoglobin 27.6 PG (27.0-31.0) Mean Corpuscular Hemoglobin Concent 32.1 G/DL (32.0-36.0) Red Cell Distribution Width 12.3 % (11.6-14.8) Platelet Count 368 K/UL (150-450) Mean Platelet Volume 7.1 FL (6.5-10.1) Neutrophils (%) (Auto) 82.1 % (45.0-75.0) H Lymphocytes (%) (Auto) 7.3 % (20.0-45.0) L Monocytes (%) (Auto) 9.0 % (1.0-10.0) Eosinophils (%) (Auto) 0.7 % (0.0-3.0) Basophils (%) (Auto) 1.0 % (0.0-2.0) Sodium Level 143 MMOL/L (136-145) Potassium Level 5.1 MMOL/L (3.5-5.1) Chloride Level 110 MMOL/L (98-107) H Carbon Dioxide Level 21 MMOL/L (21-32) Anion Gap 13 mmol/L (5-15) Blood Urea Nitrogen 38 mg/dL (7-18) H Creatinine 1.5 MG/DL (0.55-1.30) H Estimat Glomerular Filtration Rate mL/min (>60) Glucose Level 128 MG/DL (74-106) H Calcium Level 9.0 MG/DL (8.5-10.1) Total Bilirubin 0.7 MG/DL (0.2-1.0) Aspartate Amino Transf (AST/SGOT) 12 U/L (15-37) L Alanine Aminotransferase (ALT/SGPT) 13 U/L (12-78) Alkaline Phosphatase 83 U/L (46-116) Total Protein 7.0 G/DL (6.4-8.2) Albumin 2.5 G/DL (3.4-5.0) L Globulin 4.5 g/dL Albumin/Globulin Ratio 0.6 (1.0-2.7) L Microbiology Date/Time Source Procedure Growth Status 03/22/19 14:46 Rectum Received Sabino Goncalves MD Mar 23, 2019 17:29
[2019-03-23] MEDS ORDERED: Docusate 100mg cap ORAL SCH (18:00)
[2019-03-23] MEDS ORDERED: Tamsulosin 0.4mg cap ORAL SCH (18:00)
--- NOTE | 2019-03-23 19:00 | NUR ---
NURSE NOTES: Transferred patient to tele to room [address] Goncalves's order. upper denture was worn by the patient, patient brought his cell phone, [employer] and reading glasses with him. Belongings were checked by two RN's. Skin intact, still with redness on sacral, dressing intact. Report given to Zulay Youssef.
--- NOTE | 2019-03-23 19:00 | NUR ---
NURSE NOTES: Received pt from 4E. Pt is alert and oriented X 3. Heart monitor applied. Belongings accounted for. Bed is in lowest position, side rails up X 2 and call light is within reach. Will continue to monitor.
--- NOTE | 2019-03-23 19:09 | Consultation ---
Consult Note Consult Note NEUROLOGY CONSULTATION: Full note dictated #[id number] 83-year-old, right-handed, gentleman, with long history of hypertension, diabetes mellitus, benign prostatic hypertrophy status post TURP, who was functioning well until 03/11/2019 when he was walking to get some coffee and suddenly noticed that his right side was weak. On 03-12-2019 he became significantly more weak on the right side with involvement of the face upper and lower extremities. He was taken from his [facility] to [facility] and evaluated there and was told that he had a stroke. He was then sent back to his [facility] and started to feel palpitations. As a result of these palpitations he was sent to [facility] on 03/22/2019. ON EXAMINATION: Oriented except for exact date. Mild problems with memory. Mild problems with visual-spatial function. Mild anomia. Poor vision and right eye with right-sided ptosis. Mild right seventh central facial paresis Right hemiplegia except for G 2/5 power in right biceps and ankle plantar flexors. Reflexes: 2++ on the right and 1+ on the left at the biceps, triceps, brachioradialis and knees. 0 at both ankles. Plantar response extensor on the right and flexor on left. Coordination normal on the left side and could not be tested on right. Patient unable to stand and walk. 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 Most likely etiology for cerebrovascular disease is hypertensive, diabetic cerebrovascular disease. Patient also has had a cardiac arrhythmia which could be responsible for his cerebrovascular disease. RECOMMENDATIONS: 1. Treatment of high blood pressure with a goal of less than 120/80 at all times in the near future. 2. Strict blood sugar control with aim of hemoglobin A1c less than 6% 3. Work-up for other treatable causes of cerebrovascular disease with a lipid panel, ESR, RPR. 4. Treatment of cardiac arrhythmia as per Dr. Goncalves. 5. Carotid duplex. 6. PT OT and SLT. Huan Estrada M.D., M.S.P.H. Huan Estrada MD Mar 23, 2019 19:09
--- NOTE | 2019-03-23 19:30 | History and Physical Report ---
DATE OF ADMISSION: 03/22/2019 DATE AND TIME SEEN: On 03/23/2019 at 2 p.m. CONSULTANTS: 1. Angelita Alarcon M.D. 2. Sabino Goncalves M.D. 3. Huan Estrada M.D. CHIEF COMPLAINT: Shortness of breath, desaturation, weakness, and tachycardia. BRIEF HISTORY: This is an 83-year-old male from [facility], who presented with the above-mentioned diagnoses, admitted to medical floor for further treatment. Currently, slightly anxious in bed, slight short of breath, O2 NC in place, no complaint. REVIEW OF SYSTEMS: No chest pain. Slight short of breath. No nausea, vomiting, or diarrhea. PAST MEDICAL HISTORY: Diabetes, possible CVA 2 weeks ago, and hypertension. PAST SURGICAL HISTORY: None. ALLERGIES: Denies. MEDICATIONS: Include cefepime, vancomycin, Flomax, heparin, insulin, diazepam, Tylenol, morphine, and temazepam. SOCIAL HISTORY: No smoke. Occasional alcohol. No intravenous drug abuse. PHYSICAL EXAMINATION: GENERAL: Calm, slightly anxious in bed, oriented x2, in no acute distress. VITAL SIGNS: Temperature 97, pulse 101, respirations 20, and blood pressure 116/62. CARDIOVASCULAR: No murmur. LUNGS: Distant and clear. ABDOMEN: Positive bowel sounds. Nontender and nondistended. EXTREMITIES: No cyanosis, clubbing, or edema. NEUROLOGIC: The patient moves all extremities, slightly weak especially the right arm and right leg. LABORATORY AND DIAGNOSTIC DATA: Labs at this time show white count 14.8, otherwise CBC is normal. BMP shows chloride 110, BUN and creatinine 30/1.5. Glucose 128. Urinalysis is 1+ leukocyte esterase. INR is 1.3, PTT is 38. ASSESSMENT: 1. Shortness of breath. 2. Desaturation. 3. UTI. 4. Weakness. 5. Renal insufficiency. 6. Tachycardia. 7. Diabetes. 8. Possible CVA. 9. Hypertension. PLAN: 1. Blood pressure and blood sugar control. 2. O2 and pulmonary treatment. 3. Antibiotics per Infectious Disease. 4. Dietary followup. 5. PT and OT. 6. CBC and BMP in the morning. Chris Tipton D.O. DR: ÓSCAR JOB#: [id number] CC:
--- NOTE | 2019-03-23 19:45 | Consultation ---
DATE OF CONSULTATION: 03/23/2019 CARDIOLOGY CONSULTATION CONSULTING PHYSICIAN: Sabino Goncalves M.D. REFERRING PHYSICIAN: Chris Tipton D.O. REASON FOR CONSULTATION: Palpitation in a patient with history of stroke, rule out atrial fibrillation. HISTORY OF PRESENT ILLNESS: The patient is a 83-year-old gentleman with history of hypertension, diabetes, and history of recent CVA with right-sided deficit, who was sent from halfway from assisted living for generalized weakness and palpitation. The patient is also on Eliquis presumably because of atrial fibrillation. The patient was admitted and a Cardiology consultation was obtained for further evaluation and management. REVIEW OF SYSTEMS: Review of systems was negative other than what was mentioned in history of present illness. PAST MEDICAL HISTORY: As mentioned above. FAMILY HISTORY: Noncontributory. SOCIAL HISTORY: The patient is currently in a halfway. Does not smoke or drink alcohol. PHYSICAL EXAMINATION: VITAL SIGNS: Blood pressure is 116/62, pulse 101, respirations 20, and temperature 97.7. HEAD AND SHOWS: No JVD. LUNGS: Clear. CARDIOVASCULAR: Regular S1 and S2 with no gallop or murmur, tachycardic ABDOMEN: Soft. EXTREMITIES: No pitting edema. LABORATORY AND DIAGNOSTIC DATA: His labs show white count of 14.8, hemoglobin of 16, hematocrit 50, and platelet count is 268. Sodium 142, potassium 5.1, BUN of 38, creatinine 1.5, and glucose of 120. Troponin is negative. ASSESSMENT AND PLAN: 1. Possible atrial fibrillation causing stroke. The patient is already on Eliquis 5 mg b.i.d. that currently is changed to heparin subcutaneous. We will get EKG and echocardiogram. Transfer the patient to telemetry, completely rule out myocardial infarction protocol for further evaluation. 2. History of , currently off antihypertensives. 3. Diabetes. 4. CVA with hemiplegia. 5. Renal failure with creatinine of 1.5. 6. Anemia. Eliquis has been held. Thank you very much for allowing me to participate in the care of this patient. Please do not hesitate to contact me for any questions regarding my evaluation. Sincerely, Sabino Goncalves M.D. DR: Kateryna JOB#: [id number] CC:
--- NOTE | 2019-03-23 19:58 | NUR ---
HAND-OFF: Report given to Natalia Interiano. patient stable. Plan of care endorsed
[2019-03-23 20:00] VITALS: BP 106/67
--- NOTE | 2019-03-23 20:00 | NUR ---
NURSE NOTES: Received report from BRYAN Biswas. Patient in bed asleep showing no signs of acute distress. Respiration even and non labored on 3L O2 via NC. No Sob noted. Pt. IV on Left FA 20g running 0.45NS@75cc/hr patent and intact. Noted on FC, patent, intact and draining tea colored urine. Bed in lowest position, side rails x2, wheels locked and alarm on. Call light within reach. All needs attended and met. Will continue plan of care.
[2019-03-23] MEDS ORDERED: Morphine Sulfate 2mg/ml Inj(IV/IM USE ONLY) IVP PRN (21:00)
[2019-03-23] MEDS ORDERED: Nitroglycerin Subl 0.4mg tab SL PRN (21:00)
[2019-03-23] MEDS ORDERED: Albuterol/Ipratropium 3ml neb HHN PRN (21:00)
--- NOTE | 2019-03-23 21:45 | Consultation ---
DATE OF CONSULTATION: 03/23/2019 NEUROLOGY CONSULTATION CONSULTING PHYSICIAN: Huan Estrada M.D. REFERRING PHYSICIAN: Chris Tipton D.O. HISTORY: Mr. Kemar Pfeiffer is an 83-year-old right-handed, gentleman, with a long history of hypertension, diabetes mellitus, benign prostatic hypertrophy - status post transurethral resection of the prostate, who was functioning well until 03/11/2019 when he was walking to get some coffee and suddenly noticed that his right side was weak. He was able to walk back to his retirement and on 03/12/2019, he became significantly more weak on the right side with involvement of his face, upper and lower extremities. The paramedics were called and then he was taken from his retirement to [facility] and evaluated there and was told that he had a stroke. He spent approximately a week in the hospital and was then sent back to his retirement where he started to feel palpitations. As a result of these palpitations, he was sent to [facility] emergency room on 03/22/2019 and has since been admitted. This consultation was requested to evaluate and manage the patient's cerebrovascular disease. As per the patient, he has had no movement on his right side ever since he had his stroke. There has been no significant improvement in his condition. He denies any altered sensations, any problems with understanding language, or expressing himself and also denies any problems with cognitive function. PAST HISTORY: Significant for hypertension, diabetes mellitus, benign prostatic hypertrophy, status post transurethral resection of the prostate, visual problems in the right eye for some time with minimal right-sided ptosis, which has recently worsened since he had a stroke. FAMILY HISTORY: Nothing significant as per the patient. PERSONAL HISTORY: Home: He lives in a retirement. He is unable to explain why he lives in a retirement. 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 Habits: He denies use of tobacco or illicit drugs, but does consume 2 to 3 alcoholic drinks in a week. MEDICATIONS: Present medications include ceftriaxone, pantoprazole, Flomax, DSS, VESIcare, heparin for DVT prophylaxis, insulin, MiraLAX, Zofran p.r.n., Valium 5 mg at bedtime, DuoNeb inhaler p.r.n., Tylenol p.r.n., morphine sulfate p.r.n., Restoril p.r.n., and nitroglycerin p.r.n. PHYSICAL EXAMINATION: GENERAL: He is a well-developed, well-nourished, pleasant gentleman, lying in bed, in no acute distress. VITAL SIGNS: Pulse 101/minute, blood pressure 116/62 mmHg, respirations 20/minute, temperature 97.7 degrees Fahrenheit. HEAD: Normocephalic and atraumatic. EENT: Examination benign. NECK: No neck rigidity was observed. NEUROLOGICAL EXAMINATION: MENTAL STATUS EXAMINATION: He was awake and alert. He was oriented to person, place, and time except for the exact date. He was able to recall 3/3 words immediately, but could only remember 2/3 in 1 minute and 3 minutes on the first trial. On the second trial, he was able to remember all 3 words. He was able to remember Presidents Trump and Obama spontaneously, but needed hints to remember through [employer]. His mathematical skills were good. His visuospatial function was minimally impaired. SPEECH: He had no dysarthria. LANGUAGE: He had an anomia for low-frequency words. CRANIAL NERVE EXAMINATION: II: The visual quintanilla were intact. He however had poor vision in the right eye in addition. III, IV & : The external ocular movements were full. The pupils 3 mm in diameter and reactive sluggishly to light. He had ptosis on the right side. V: He had normal facial sensations and the temporales, masseters, and pterygoids functioned normally. VII: He had a right seventh central facial paresis. VIII: He was able to hear well bilaterally and had no nystagmus. IX: The palate moved symmetrically on phonation. X: He had no hoarseness of voice. XI: The sternocleidomastoids and trapezii functioned normally. XII: The tongue was in the midline without any fasciculations or atrophy. MOTOR SYSTEM: The tone was flaccid in the right upper extremity and diminished in the right lower extremity. Examination of muscle mass revealed no focal wasting. Examination of power revealed G 5/5 power on the left side. On the right side, he had G 0/5 power except for G 2/5 power in the right biceps and ankle plantar flexors. SENSORY EXAMINATION: He had intact sensations to pinprick, light touch, and graphesthesia. COORDINATION: He performed well on wfsset-sk-axfp and mbus-oz-muzi testing on the left side, but could not perform on the right side. REFLEXES: 2++ on the right and 1+ on the left at the biceps, triceps, brachioradialis, knees, 0 at both ankles. The plantar response was extensor on the right and flexor on the left. STANCE & GAIT: Could not be tested. DIAGNOSTIC IMPRESSION: 1. Mr. Kemar Pfeiffer is an 83-year-old right-handed, gentleman, with a long history of hypertension, diabetes mellitus, benign prostatic hypertrophy, and gait problems related to spinal stenosis who on 03/11/2019 noticed some problems with walking because his right leg would not carry him too well. On 03/12/2019, he became significantly more weak on the right side with involvement of his face, upper and lower extremities. He was taken to another hospital, evaluated there, and was told that he had a stroke. He was kept there for about a week and then sent back to his retirement where he started to feel palpitations and as a result of that was hospitalized at [facility] on 03/22/2019. 2. On neurological examination, at this time, he is disoriented to the exact date. He has problems with recent and remote memory, problems with visuospatial function, and a mild anomia. He also has right-sided ptosis and poor vision in the right eye. He in addition has a mild right seventh central facial paresis, right hemiplegia except for G 2/5 power in the right biceps and ankle plantar flexors, brisker reflexes on the right side compared to the left, and an extensor plantar response on the right side. 3. Laboratory data obtained thus far have revealed that his WBC count was elevated to 14,800, his hemoglobin was at 16.0. His chemistry panel revealed a BUN elevated at 38 with a creatinine of 1.5. His glucose was high at 128. His proBNP was elevated at 641. His albumin was low at 2.5. His urinalysis revealed 1+ leukocyte esterase, too numerous to count red blood cells, and 0-2 white blood cells per high-power field with a moderate amount of bacteria in the urine. 4. The CT scan of the brain without contrast revealed atrophy, deep white matter changes, and a recent deep white matter infarct involving the left luther radiata. 5. The patient's history, neurological examination, laboratory data, and imaging studies are most consistent with a recent left luther radiata infarct leading to severe right hemiparesis. The most likely etiology for the patient's cerebrovascular disease is hypertensive/diabetic cerebrovascular disease. It is unclear if he also has dyslipidemia or not. The patient has also been noted to have a cardiac arrhythmia, which is being worked up and it is unclear if the cardiac arrhythmia could also be responsible. RECOMMENDATIONS: 1. Agree with management thus far. 2. Treatment of high blood pressure with a goal of < 120/80 at all times in the near future. 3. Strict blood sugar control with the name of hemoglobin A1c <6%. 4. Workup for other treatable causes of cerebrovascular disease with a lipid panel, ESR, RPR, and cerebrovascular noninvasive profile. 5. Treatment of cardiac arrhythmia per Dr. Goncalves. 6. Rehabilitate the patient with the help of physical, occupational, and speech and language therapy. Thank you for entrusting me with the care of Mr. Shea. I shall follow him with you. Huan Estrada M.D., M.S.P.H. DR: ANGI JOB#: [id number] MTDD
[2019-03-24] VITALS: BP_SYST 117; BP_SYST 135; BP_DIAS 62; BP_DIAS 89
[2019-03-24 04:00] VITALS: BP 136/76
[2019-03-24] MEDS: NovoLOG Insulin Flexpen SUBQ SCH ×4 (05:52→21:00)
[2019-03-24 06:36] LABS: EOSINOPHILS % (AUTO) 2.5 % (0.0-3.0); HEMOGLOBIN 15.2 G/DL (14.2-18.0); LYMPHOCYTES % (AUTO) 11.1 % (20.0-45.0); MEAN CORPUSCULAR VOLUME 86 FL (80-99); MONOCYTES % (AUTO) 9.9 % (1.0-10.0); NEUTROPHILS % (AUTO) 75.5 % (45.0-75.0); PLATELET COUNT 307 K/UL (150-450); RED BLOOD COUNT 5.47 M/UL (4.70-6.10); RED CELL DISTRIBUTION WIDTH 12.1 % (11.6-14.8); WHITE BLOOD COUNT 12.8 K/UL (4.8-10.8)
[2019-03-24 06:55] LABS: PHOSPHORUS 2.8 MG/DL (2.5-4.9)
[2019-03-24 07:00] LABS: ALANINE AMINOTRANSFERASE 10 U/L (12-78); ALBUMIN 2.3 G/DL (3.4-5.0); ALBUMIN/GLOBULIN RATIO 0.6 (1.0-2.7); ALKALINE PHOSPHATASE 76 U/L (46-116); ANION GAP 10 mmol/L (5-15); ASPARTATE AMINO TRANSFERASE 18 U/L (15-37); BILIRUBIN,TOTAL 0.6 MG/DL (0.2-1.0); BLOOD UREA NITROGEN 36 mg/dL (7-18); CALCIUM 8.9 MG/DL (8.5-10.1); CARBON DIOXIDE 22 MMOL/L (21-32); CHLORIDE 107 MMOL/L (98-107); CHOLESTEROL 113 MG/DL (< 200); CREATINE KINASE 31 U/L (26-308); CREATININE 1.4 MG/DL (0.55-1.30); HDL CHOLESTEROL 29 MG/DL (40-60); POTASSIUM 4.4 MMOL/L (3.5-5.1); SODIUM 139 MMOL/L (136-145); TRIGLYCERIDES 68 MG/DL (30-150)
--- NOTE | 2019-03-24 07:05 | NUR ---
NURSE NOTES: Received report from BRYAN Interiano. Patient is AAO x 2. patient is confused about plan of care and ask questions frequently. Was reoriented. A personal care provider from home was near his bedside. Respiration even and non labored on 3L O2 via NC. No Sob noted. 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 Pt. IV on Left FA 20g running 0.45NS@75cc/hr patent and intact. Noted on FC, patent, intact and draining yellow colored urine. Bed in lowest position, side rails x2, wheels locked and alarm on. Call light within reach. Will continue plan of care.
--- NOTE | 2019-03-24 07:17 | NUR ---
HAND-OFF: Report given to BRYAN Tom.
--- NOTE | 2019-03-24 07:22 | NUR ---
CASE MANAGEMENT:REVIEW 03/24/19 SI: SEPSIS D/T UTI. DM 97.8 100 96 20 136/76 96% ON 3L/NC WBC+12.8 BUN+36 CR+1.4 IS: IV ROCEPHIN Q24 IVF@75/HR : NOW ON TELEMETRY (FROM [facility]) DCP: FROM [facility]
[2019-03-24 08:00] VITALS: BP 122/69
--- NOTE | 2019-03-24 08:21 | NUR ---
NURSE NOTES: Dr. Tipton saw patient.
--- NOTE | 2019-03-24 08:35 | General Progress Note ---
Assessment/Plan Problem List: (1) UTI (urinary tract infection) ICD Codes: N39.0 - Urinary tract infection, site not specified SNOMED: 81404757 (2) Hypertension ICD Codes: I10 - Essential (primary) hypertension SNOMED: 60695859 (3) Chronic constipation ICD Codes: K59.09 - Other constipation SNOMED: 884181465 (4) Weakness ICD Codes: R53.1 - Weakness SNOMED: 42693520 (5) Diabetes mellitus ICD Codes: E11.9 - Type 2 diabetes mellitus without complications SNOMED: 47207667 (6) Episode of generalized weakness ICD Codes: R53.1 - Weakness SNOMED: 65444597 Status: stable, progressing Assessment/Plan: pt diet abx cbc bmp am Subjective Constitutional: Reports: weakness Allergies: Coded Allergies: No Known Allergies (Unverified , 01/04/19) All Systems: reviewed and negative except above Subjective sl anxious in bed Objective Last 24 Hour Vital Signs Date Time Temp Pulse Resp B/P (MAP) Pulse Ox O2 Delivery O2 Flow Rate FiO2 03/24/19 04:00 97.8 100 20 136/76 (96) 96 03/24/19 04:00 96 03/24/19 00:00 97.6 95 18 117/62 (80) 96 03/24/19 00:00 92 03/23/19 22:26 94 03/23/19 21:00 Nasal Cannula 3.0 03/23/19 20:00 97.8 99 18 106/67 (80) 96 03/23/19 19:34 96 Nasal Cannula 3.0 32 03/23/19 19:34 98 18 96 Nasal Cannula 3.0 32 03/23/19 16:00 97.5 101 20 134/75 (94) 99 03/23/19 12:00 97.7 101 20 116/62 (80) 99 03/23/19 09:00 Nasal Cannula 3.0 Intake and Output 03/23/19 03/24/19 19:00 07:00 Intake Total 863.75 ml Output Total 700 ml 1100 ml Balance -700 ml -236.25 ml Intake IV Total 863.75 ml Output Urine Total 700 ml 1100 ml Laboratory Tests 03/24/19 05:00: White Blood Count 12.8H, Red Blood Count 5.47, Hemoglobin 15.2, Hematocrit 47.0 , Mean Corpuscular Volume 86, Mean Corpuscular Hemoglobin 27.8, Mean Corpuscular Hemoglobin Concent 32.4, Red Cell Distribution Width 12.1, Platelet Count 307, Mean Platelet Volume 6.8, Neutrophils (%) (Auto) 75.5H, Lymphocytes ( %) (Auto) 11.1L, Monocytes (%) (Auto) 9.9, Eosinophils (%) (Auto) 2.5, Basophils (%) (Auto) 1.0, Sodium Level 139, Potassium Level 4.4, Chloride Level 107, Carbon Dioxide Level 22, Anion Gap 10, Blood Urea Nitrogen 36H, Creatinine 1.4H, Estimat Glomerular Filtration Rate , Glucose Level 92, Hemoglobin A1c 6.0 , Uric Acid 7.6H, Calcium Level 8.9, Phosphorus Level 2.8, Magnesium Level 2.1, Total Bilirubin 0.6, Gamma Glutamyl Transpeptidase 9, Aspartate Amino Transf ( AST/SGOT) 18, Alanine Aminotransferase (ALT/SGPT) 10L, Alkaline Phosphatase 76, Ammonia 37H, Total Creatine Kinase 31, Troponin I 0.010, C-Reactive Protein, Quantitative 12.7H, Pro-B-Type Natriuretic Peptide 480H, Total Protein 6.4, Albumin 2.3L, Globulin 4.1, Albumin/Globulin Ratio 0.6L, Triglycerides Level 68 , Cholesterol Level 113, LDL Cholesterol 69, HDL Cholesterol 29L, Cholesterol/ HDL Ratio 3.9, Vitamin B12 Level 362, Folate 9.1, Thyroid Stimulating Hormone ( TSH) 0.571 Height (Feet): 5 Height (Inches): 10.00 Weight (Pounds): 170 General Appearance: lethargic EENT: normal ENT inspection Neck: normal alignment Cardiovascular: normal peripheral pulses, normal rate, regular rhythm Respiratory/Chest: chest wall non-tender, lungs clear, normal breath sounds Abdomen: normal bowel sounds, non tender, soft Extremities: normal inspection Edema: no edema noted Arm (L), no edema noted Arm (R), no edema noted Leg (L), no edema noted Leg (R), no edema noted Pedal (L), no edema noted Pedal (R), no edema noted Generalized Neurologic: responsive, motor weakness Skin: normal pigmentation, warm/dry Chris Tipton DO Mar 24, 2019 08:35
[2019-03-24] MEDS ORDERED: cefTRIAXone 1 GM in D5W 55 ML IVPB SCH (10:00)
[2019-03-24] MEDS: Solifenacin 10mg tab ORAL SCH (10:02)
[2019-03-24] MEDS: Docusate 100mg cap ORAL SCH ×3 (10:02→18:55)
[2019-03-24] MEDS: Tamsulosin 0.4mg cap ORAL SCH ×2 (10:03→18:55)
[2019-03-24] MEDS: Heparin 5000 units/ml inj SUBQ SCH ×2 (10:12→21:00)
[2019-03-24] MEDS: cefTRIAXone 1 GM in D5W 55 ML IVPB SCH (10:56)
--- NOTE | 2019-03-24 11:20 | Nephrology Progress Note ---
Assessment/Plan Problem List: (1) Renal failure (ARF), acute on chronic (2) Dehydration (3) UTI (urinary tract infection) (4) Hypertension Assessment Renal failure- mainly dehydration h/o anemia GERD CVA w/ R side deficit DM2 UTI Plan Hydrate- Antibiotics Monitor renal parameters avoid nephrotoxics Subjective ROS Limited/Unobtainable: No Constitutional: Reports: malaise, weakness Objective Objective Last 24 Hour Vital Signs Date Time Temp Pulse Resp B/P (MAP) Pulse Ox O2 Delivery O2 Flow Rate FiO2 03/24/19 08:44 Nasal Cannula 3.0 03/24/19 08:00 97.8 98 18 122/69 (86) 98 03/24/19 07:29 100 03/24/19 04:00 97.8 100 20 136/76 (96) 96 03/24/19 04:00 96 03/24/19 00:00 97.6 95 18 117/62 (80) 96 03/24/19 00:00 92 03/23/19 22:26 94 03/23/19 21:00 Nasal Cannula 3.0 03/23/19 20:00 97.8 99 18 106/67 (80) 96 03/23/19 19:34 96 Nasal Cannula 3.0 32 03/23/19 19:34 98 18 96 Nasal Cannula 3.0 32 03/23/19 16:00 97.5 101 20 134/75 (94) 99 03/23/19 12:00 97.7 101 20 116/62 (80) 99 Intake and Output 03/23/19 03/24/19 19:00 07:00 Intake Total 863.75 ml Output Total 700 ml 1100 ml Balance -700 ml -236.25 ml Intake IV Total 863.75 ml Output Urine Total 700 ml 1100 ml Laboratory Tests 03/24/19 05:00: White Blood Count 12.8H, Red Blood Count 5.47, Hemoglobin 15.2, Hematocrit 47.0 , Mean Corpuscular Volume 86, Mean Corpuscular Hemoglobin 27.8, Mean Corpuscular Hemoglobin Concent 32.4, Red Cell Distribution Width 12.1, Platelet Count 307, Mean Platelet Volume 6.8, Neutrophils (%) (Auto) 75.5H, Lymphocytes ( %) (Auto) 11.1L, Monocytes (%) (Auto) 9.9, Eosinophils (%) (Auto) 2.5, Basophils (%) (Auto) 1.0, Sodium Level 139, Potassium Level 4.4, Chloride Level 107, Carbon Dioxide Level 22, Anion Gap 10, Blood Urea Nitrogen 36H, Creatinine 1.4H, Estimat Glomerular Filtration Rate , Glucose Level 92, Hemoglobin A1c 6.0 , Uric Acid 7.6H, Calcium Level 8.9, Phosphorus Level 2.8, Magnesium Level 2.1, Total Bilirubin 0.6, Gamma Glutamyl Transpeptidase 9, Aspartate Amino Transf ( AST/SGOT) 18, Alanine Aminotransferase (ALT/SGPT) 10L, Alkaline Phosphatase 76, Ammonia 37H, Total Creatine Kinase 31, Troponin I 0.010, C-Reactive Protein, Quantitative 12.7H, Pro-B-Type Natriuretic Peptide 480H, Total Protein 6.4, Albumin 2.3L, Globulin 4.1, Albumin/Globulin Ratio 0.6L, Triglycerides Level 68 , Cholesterol Level 113, LDL Cholesterol 69, HDL Cholesterol 29L, Cholesterol/ HDL Ratio 3.9, Vitamin B12 Level 362, Folate 9.1, Thyroid Stimulating Hormone ( TSH) 0.571 Height (Feet): 5 Height (Inches): 10.00 Weight (Pounds): 170 General Appearance: no apparent distress Respiratory/Chest: decreased breath sounds Abdomen: distended eDvonte Zuniga MD Mar 24, 2019 11:20
--- NOTE | 2019-03-24 11:50 | Pulmonology Progress Note ---
Assessment/Plan Problems: (1) Sepsis due to urinary tract infection (2) Cerebrovascular accident (CVA) (3) Hypertension (4) Diabetes mellitus (5) Episode of generalized weakness Assessment/Plan pt was transferred to telemetry unit b/o tachycardia last night. He was in sinus tachy. dc/w sister at the bed site about pt's care Subjective ROS Limited/Unobtainable: No Constitutional: Reports: no symptoms HEENT: Repors: no symptoms Respiratory: Reports: no symptoms Allergies: Coded Allergies: No Known Allergies (Unverified , 01/04/19) Objective Last 24 Hour Vital Signs Date Time Temp Pulse Resp B/P (MAP) Pulse Ox O2 Delivery O2 Flow Rate FiO2 03/24/19 08:44 Nasal Cannula 3.0 03/24/19 08:00 97.8 98 18 122/69 (86) 98 03/24/19 07:29 100 03/24/19 04:00 97.8 100 20 136/76 (96) 96 03/24/19 04:00 96 03/24/19 00:00 97.6 95 18 117/62 (80) 96 03/24/19 00:00 92 03/23/19 22:26 94 03/23/19 21:00 Nasal Cannula 3.0 03/23/19 20:00 97.8 99 18 106/67 (80) 96 03/23/19 19:34 96 Nasal Cannula 3.0 32 03/23/19 19:34 98 18 96 Nasal Cannula 3.0 32 03/23/19 16:00 97.5 101 20 134/75 (94) 99 03/23/19 12:00 97.7 101 20 116/62 (80) 99 Intake and Output 03/23/19 03/24/19 19:00 07:00 Intake Total 863.75 ml Output Total 700 ml 1100 ml Balance -700 ml -236.25 ml Intake IV Total 863.75 ml Output Urine Total 700 ml 1100 ml General Appearance: WD/WN HEENT: normocephalic, atraumatic Respiratory/Chest: chest wall non-tender, lungs clear Cardiovascular: normal peripheral pulses, normal rate Abdomen: no organomegaly Genitourinary: normal external genitalia Extremities: no cyanosis Neurologic/Psychiatric: lpn II-XII grossly normal Microbiology Date/Time Source Procedure Growth Status 03/22/19 13:23 Blood Blood Culture - Preliminary NO GROWTH AFTER 24 HOURS Resulted 03/22/19 13:10 Blood Blood Culture - Preliminary NO GROWTH AFTER 24 HOURS Resulted 03/23/19 04:55 Sputum Gram Stain - Final Complete 03/23/19 04:55 Sputum Sputum Culture - Final Complete 03/22/19 22:55 Urine,Clean Catch Urine Culture - Preliminary NO GROWTH AFTER 24 HOURS Resulted 03/22/19 14:46 Rectum Received Laboratory Tests 03/24/19 05:00: White Blood Count 12.8H, Red Blood Count 5.47, Hemoglobin 15.2, Hematocrit 47.0 , Mean Corpuscular Volume 86, Mean Corpuscular Hemoglobin 27.8, Mean Corpuscular Hemoglobin Concent 32.4, Red Cell Distribution Width 12.1, Platelet Count 307, Mean Platelet Volume 6.8, Neutrophils (%) (Auto) 75.5H, Lymphocytes ( %) (Auto) 11.1L, Monocytes (%) (Auto) 9.9, Eosinophils (%) (Auto) 2.5, Basophils (%) (Auto) 1.0, Sodium Level 139, Potassium Level 4.4, Chloride Level 107, Carbon Dioxide Level 22, Anion Gap 10, Blood Urea Nitrogen 36H, Creatinine 1.4H, Estimat Glomerular Filtration Rate , Glucose Level 92, Hemoglobin A1c 6.0 , Uric Acid 7.6H, Calcium Level 8.9, Phosphorus Level 2.8, Magnesium Level 2.1, Total Bilirubin 0.6, Gamma Glutamyl Transpeptidase 9, Aspartate Amino Transf ( AST/SGOT) 18, Alanine Aminotransferase (ALT/SGPT) 10L, Alkaline Phosphatase 76, Ammonia 37H, Total Creatine Kinase 31, Troponin I 0.010, C-Reactive Protein, Quantitative 12.7H, Pro-B-Type Natriuretic Peptide 480H, Total Protein 6.4, Albumin 2.3L, Globulin 4.1, Albumin/Globulin Ratio 0.6L, Triglycerides Level 68 , Cholesterol Level 113, LDL Cholesterol 69, HDL Cholesterol 29L, Cholesterol/ HDL Ratio 3.9, Vitamin B12 Level 362, Folate 9.1, Thyroid Stimulating Hormone ( TSH) 0.571 Current Medications Medications (Trade) Dose Ordered Sig/Amaya Route PRN Reason Start Time Stop Time Status Last Admin Dose Admin Acetaminophen (Tylenol) 650 mg Q4H PRN ORAL fever 03/23/19 21:00 04/21/19 20:59 Albuterol/ Ipratropium (Albuterol/ Ipratropium) 3 ml Q4H PRN HHN Shortness of Breath 03/23/19 21:00 03/27/19 20:59 Ceftriaxone Sodium 1 gm/ Dextrose 55 ml @ 110 mls/hr Q24H IVPB 03/24/19 10:00 03/31/19 09:59 03/24/19 10:56 Dextrose (Dextrose 50%) 25 ml Q30M PRN IV Hypoglycemia 03/23/19 21:00 04/21/19 13:45 Dextrose (Dextrose 50%) 50 ml Q30M PRN IV hypoglycemia 03/23/19 21:00 04/21/19 13:59 Diazepam (Valium) 5 mg BEDTIME PRN ORAL For Anxiety 03/23/19 21:00 03/29/19 13:44 03/23/19 23:16 Docusate Sodium (Colace) 100 mg TID ORAL 03/24/19 09:00 04/22/19 17:59 03/24/19 10:02 Heparin Sodium (Porcine) (Heparin 5000 units/ml) 5,000 units EVERY 12 HOURS SUBQ 03/23/19 21:00 04/21/19 20:59 03/24/19 10:12 Insulin Aspart (NovoLOG) BEFORE MEALS AND HS SUBQ 03/23/19 21:00 04/21/19 16:29 Morphine Sulfate (Morphine Sulfate) 2 mg Q4H PRN IVP Moderate Pain (Pain Scale 4-6) 03/23/19 21:00 03/29/19 20:59 Nitroglycerin (Ntg) 0.4 mg Q5M PRN SL Prn Chest Pain 03/23/19 21:00 04/21/19 13:44 Ondansetron HCl (Zofran) 4 mg Q6H PRN IVP Nausea & Vomiting 03/23/19 21:00 04/22/19 20:59 Pantoprazole (Protonix) 40 mg DAILY ORAL 03/24/19 09:00 04/23/19 08:59 03/24/19 10:02 Polyethylene Glycol (Miralax) 17 gm DAILYPRN PRN ORAL Constipation 03/23/19 21:00 04/22/19 20:59 Sodium Chloride 1,000 ml @ 75 mls/hr [id number] IV 03/23/19 21:00 04/22/19 15:44 03/24/19 10:17 Solifenacin (Vesicare) 10 mg DAILY ORAL 03/24/19 09:00 04/22/19 08:59 03/24/19 10:02 Tamsulosin HCl (Flomax) 0.4 mg BID ORAL 03/24/19 09:00 04/21/19 20:59 03/24/19 10:03 Temazepam (Restoril) 15 mg HSPRN PRN ORAL Insomnia 03/23/19 21:00 03/30/19 20:59 Angelita Alarcon MD Mar 24, 2019 11:50
[2019-03-24 12:00] VITALS: BP 123/72
--- NOTE | 2019-03-24 13:39 | Neurology Progress Note ---
Interim History Interim History Interim History Mr. Pfeiffer feels about the same as yesterday. He is wondering how much function he will be able to recover. He continues to be plegic on the right. He continues to have a left ptosis. The sensations are still normal on the right. He is able to communicate fairly well. He denies any new neurologic problems. Review of Systems Neuro Review of Systems Benign. Objective Physical Exam Last Vital Signs Date Time Temp Pulse Resp B/P (MAP) Pulse Ox O2 Delivery O2 Flow Rate FiO2 03/24/19 11:33 97 03/24/19 08:44 Nasal Cannula 3.0 03/24/19 08:00 97.8 18 122/69 (86) 98 03/23/19 19:34 32 Laboratory Tests Test 03/24/19 05:00 White Blood Count 12.8 K/UL (4.8-10.8) H Red Blood Count 5.47 M/UL (4.70-6.10) Hemoglobin 15.2 G/DL (14.2-18.0) Hematocrit 47.0 % (42.0-52.0) Mean Corpuscular Volume 86 FL (80-99) Mean Corpuscular Hemoglobin 27.8 PG (27.0-31.0) Mean Corpuscular Hemoglobin Concent 32.4 G/DL (32.0-36.0) Red Cell Distribution Width 12.1 % (11.6-14.8) Platelet Count 307 K/UL (150-450) Mean Platelet Volume 6.8 FL (6.5-10.1) Neutrophils (%) (Auto) 75.5 % (45.0-75.0) H Lymphocytes (%) (Auto) 11.1 % (20.0-45.0) L Monocytes (%) (Auto) 9.9 % (1.0-10.0) Eosinophils (%) (Auto) 2.5 % (0.0-3.0) Basophils (%) (Auto) 1.0 % (0.0-2.0) Sodium Level 139 MMOL/L (136-145) Potassium Level 4.4 MMOL/L (3.5-5.1) Chloride Level 107 MMOL/L (98-107) Carbon Dioxide Level 22 MMOL/L (21-32) Anion Gap 10 mmol/L (5-15) Blood Urea Nitrogen 36 mg/dL (7-18) H Creatinine 1.4 MG/DL (0.55-1.30) H Estimat Glomerular Filtration Rate mL/min (>60) Glucose Level 92 MG/DL (74-106) Hemoglobin A1c 6.0 % (4.3-6.0) Uric Acid 7.6 MG/DL (2.6-7.2) H Calcium Level 8.9 MG/DL (8.5-10.1) Phosphorus Level 2.8 MG/DL (2.5-4.9) Magnesium Level 2.1 MG/DL (1.8-2.4) Total Bilirubin 0.6 MG/DL (0.2-1.0) Gamma Glutamyl Transpeptidase 9 U/L (5-85) Aspartate Amino Transf (AST/SGOT) 18 U/L (15-37) Alanine Aminotransferase (ALT/SGPT) 10 U/L (12-78) L Alkaline Phosphatase 76 U/L (46-116) Ammonia 37 umol/L (11-32) H Total Creatine Kinase 31 U/L (26-308) Troponin I 0.010 ng/mL (0.000-0.056) C-Reactive Protein, Quantitative 12.7 mg/dL (0.00-0.90) H Pro-B-Type Natriuretic Peptide 480 pg/mL (0-125) H Total Protein 6.4 G/DL (6.4-8.2) Albumin 2.3 G/DL (3.4-5.0) L Globulin 4.1 g/dL Albumin/Globulin Ratio 0.6 (1.0-2.7) L Triglycerides Level 68 MG/DL (30-150) Cholesterol Level 113 MG/DL (< 200) LDL Cholesterol 69 mg/dL (<100) HDL Cholesterol 29 MG/DL (40-60) L Cholesterol/HDL Ratio 3.9 (3.3-4.4) Vitamin B12 Level 362 PG/ML (193-986) Folate 9.1 NG/ML (8.6-58.9) Thyroid Stimulating Hormone (TSH) 0.571 uiU/mL (0.358-3.740) Neurologic Exam Objective PHYSICAL EXAMINATION: GENERAL: He is a well-developed, well-nourished, pleasant gentleman, lying in bed, in no acute distress. HEAD: Normocephalic and atraumatic. EENT: Examination benign. NECK: No neck rigidity was observed. NEUROLOGICAL EXAMINATION: MENTAL STATUS EXAMINATION: He was awake and alert. He was oriented to person, place, and time except for the exact date. He was able to recall 3/3 words immediately, but could only remember 2/3 in 1 minute and 3 minutes on the first trial. On the second trial, he was able to remember all 3 words. He was able to remember Presidents Trump and Obama spontaneously, but needed hints to remember through [employer]. His mathematical skills were good. His visuospatial function was minimally impaired. SPEECH: He had no dysarthria. LANGUAGE: He had an anomia for low-frequency words. CRANIAL NERVE EXAMINATION: II: The visual quintanilla were intact. He however had poor vision in the right eye in addition. III, IV & : The external ocular movements were full. The pupils 3 mm in diameter and reactive sluggishly to light. He had ptosis on the right side. V: He had normal facial sensations and the temporales, masseters, and pterygoids functioned normally. VII: He had a right seventh central facial paresis. VIII: He was able to hear well bilaterally and had no nystagmus. IX: The palate moved symmetrically on phonation. X: He had no hoarseness of voice. XI: The sternocleidomastoids and trapezii functioned normally. XII: The tongue was in the midline without any fasciculations or atrophy. MOTOR SYSTEM: The tone was flaccid in the right upper extremity and diminished in the right lower extremity. Examination of muscle mass revealed no focal wasting. Examination of power revealed G 5/5 power on the left side. On the right side, he had G 0/5 power except for G 2/5 power in the right biceps and ankle plantar flexors. SENSORY EXAMINATION: He had intact sensations to pinprick, light touch, and graphesthesia. COORDINATION: He performed well on [id number] and [id number] testing on the left side, but could not perform on the right side. REFLEXES: 2++ on the right and 1+ on the left at the biceps, triceps, brachioradialis, knees, 0 at both ankles. The plantar response was extensor on the right and flexor on the left. STANCE & GAIT: Could not be tested. Impression/Recommendations Diagnostic Impression 1. Mr. Kemar Pfeiffer is an 83-year-old right-handed, gentleman, with a long history of hypertension, diabetes mellitus, benign prostatic hypertrophy , and gait problems related to spinal stenosis who on 03/11/2019 noticed some problems with walking because his right leg would not carry him too well. On , he became significantly more weak on the right side with involvement of his face , upper and lower extremities. He was taken to another hospital, evaluated there, and was told that he had a stroke. He was kept there for about a week and then sent back to his assisted where he started to feel palpitations and as a result of that was hospitalized at [facility] on 2018. 2. He feels about the same as yesterday. He is wondering how much function he will be able to recover. He continues to be plegic on the right. He continues to have a left ptosis. The sensations are still normal on the right. He is able to communicate fairly well. He denies any new neurologic problems. 3. On neurological examination, at this time, he is disoriented to the exact date. He has problems with recent and remote memory, problems with visuospatial function, and a mild anomia. He also has right-sided ptosis and poor vision in the right eye. He in addition has a mild right seventh central facial paresis, right hemiplegia except for G 2/5 power in the right biceps and ankle plantar flexors, brisker reflexes on the right side compared to the left, and an extensor plantar response on the right side. 4. Laboratory data on my initial evaluation revealed that his WBC count was elevated to 14,800, his hemoglobin was at 16.0. His chemistry panel revealed a BUN elevated at 38 with a creatinine of 1.5. His glucose was high at 128. His proBNP was elevated at 641. His albumin was low at 2.5. His urinalysis revealed 1+ leukocyte esterase, too numerous to count red blood cells, and 0-2 white blood cells per high-power field with a moderate amount of bacteria in the urine. 5. Further laboratory tests have revealed a normal lipid panel but a low Vitamin B12 level at 362. The ammonia is also minimally elevated at 37. 6. The CT scan of the brain without contrast revealed atrophy, deep white matter changes, and a recent deep white matter infarct involving the left luther radiata. 7. The patient's history, neurological examination, laboratory data, and imaging studies are most consistent with a recent left luther radiata infarct leading to severe right hemiparesis. The most likely etiology for the patient' s cerebrovascular disease is hypertensive/diabetic cerebrovascular disease. The patient has also been noted to have a cardiac arrhythmia, which is being worked up and it is unclear if the cardiac arrhythmia could also be responsible. Recommendations 1. Continue present management. 2. Treatment of high blood pressure with a goal of < 120/80 at all times in the near future. 3. Strict blood sugar control with the name of hemoglobin A1c <6%. 4. Await Brain MRI to help with prognostication. 5. Await Carotid Duplex. 6. Treatment of cardiac arrhythmia per Dr. Goncalves. 7. Rehabilitate the patient with the help of physical, occupational, and speech and language therapy. Huan Estrada M.D., M.S.P.H. Huan Estrada MD Mar 24, 2019 13:39
--- NOTE | 2019-03-24 13:41 | Cardiac Electrophysiology PN ---
Assessment/Plan Assessment/Plan 1. Possible atrial fibrillation causing stroke. The patient was on Eliquis 5 mg b.i.d. that is changed to heparin subcutaneous. EKG and tele showed SR and echocardiogram showed Nl EF 2. HTN , currently off antihypertensives. 3. Diabetes. 4. CVA with hemiplegia. 5. Renal failure with creatinine of 1.5. 6. Anemia. Eliquis has been held. Subjective Subjective Alert in NAD. No CP or SOB. Transferred to tele. In SR Objective Last 24 Hour Vital Signs Date Time Temp Pulse Resp B/P (MAP) Pulse Ox O2 Delivery O2 Flow Rate FiO2 03/24/19 11:33 97 03/24/19 08:44 Nasal Cannula 3.0 03/24/19 08:00 97.8 98 18 122/69 (86) 98 03/24/19 07:29 100 03/24/19 04:00 97.8 100 20 136/76 (96) 96 03/24/19 04:00 96 03/24/19 00:00 97.6 95 18 117/62 (80) 96 03/24/19 00:00 92 03/23/19 22:26 94 03/23/19 21:00 Nasal Cannula 3.0 03/23/19 20:00 97.8 99 18 106/67 (80) 96 03/23/19 19:34 96 Nasal Cannula 3.0 32 03/23/19 19:34 98 18 96 Nasal Cannula 3.0 32 03/23/19 16:00 97.5 101 20 134/75 (94) 99 Intake and Output 03/23/19 03/24/19 19:00 07:00 Intake Total 863.75 ml Output Total 700 ml 1100 ml Balance -700 ml -236.25 ml Intake IV Total 863.75 ml Output Urine Total 700 ml 1100 ml Laboratory Tests Test 03/24/19 05:00 White Blood Count 12.8 K/UL (4.8-10.8) H Red Blood Count 5.47 M/UL (4.70-6.10) Hemoglobin 15.2 G/DL (14.2-18.0) Hematocrit 47.0 % (42.0-52.0) Mean Corpuscular Volume 86 FL (80-99) Mean Corpuscular Hemoglobin 27.8 PG (27.0-31.0) Mean Corpuscular Hemoglobin Concent 32.4 G/DL (32.0-36.0) Red Cell Distribution Width 12.1 % (11.6-14.8) Platelet Count 307 K/UL (150-450) Mean Platelet Volume 6.8 FL (6.5-10.1) Neutrophils (%) (Auto) 75.5 % (45.0-75.0) H Lymphocytes (%) (Auto) 11.1 % (20.0-45.0) L Monocytes (%) (Auto) 9.9 % (1.0-10.0) Eosinophils (%) (Auto) 2.5 % (0.0-3.0) Basophils (%) (Auto) 1.0 % (0.0-2.0) Sodium Level 139 MMOL/L (136-145) Potassium Level 4.4 MMOL/L (3.5-5.1) Chloride Level 107 MMOL/L (98-107) Carbon Dioxide Level 22 MMOL/L (21-32) Anion Gap 10 mmol/L (5-15) Blood Urea Nitrogen 36 mg/dL (7-18) H Creatinine 1.4 MG/DL (0.55-1.30) H Estimat Glomerular Filtration Rate mL/min (>60) Glucose Level 92 MG/DL (74-106) Hemoglobin A1c 6.0 % (4.3-6.0) Uric Acid 7.6 MG/DL (2.6-7.2) H Calcium Level 8.9 MG/DL (8.5-10.1) Phosphorus Level 2.8 MG/DL (2.5-4.9) Magnesium Level 2.1 MG/DL (1.8-2.4) Total Bilirubin 0.6 MG/DL (0.2-1.0) Gamma Glutamyl Transpeptidase 9 U/L (5-85) Aspartate Amino Transf (AST/SGOT) 18 U/L (15-37) Alanine Aminotransferase (ALT/SGPT) 10 U/L (12-78) L Alkaline Phosphatase 76 U/L (46-116) Ammonia 37 umol/L (11-32) H Total Creatine Kinase 31 U/L (26-308) Troponin I 0.010 ng/mL (0.000-0.056) C-Reactive Protein, Quantitative 12.7 mg/dL (0.00-0.90) H Pro-B-Type Natriuretic Peptide 480 pg/mL (0-125) H Total Protein 6.4 G/DL (6.4-8.2) Albumin 2.3 G/DL (3.4-5.0) L Globulin 4.1 g/dL Albumin/Globulin Ratio 0.6 (1.0-2.7) L Triglycerides Level 68 MG/DL (30-150) Cholesterol Level 113 MG/DL (< 200) LDL Cholesterol 69 mg/dL (<100) HDL Cholesterol 29 MG/DL (40-60) L Cholesterol/HDL Ratio 3.9 (3.3-4.4) Vitamin B12 Level 362 PG/ML (193-986) Folate 9.1 NG/ML (8.6-58.9) Thyroid Stimulating Hormone (TSH) 0.571 uiU/mL (0.358-3.740) Microbiology Date/Time Source Procedure Growth Status 03/22/19 13:23 Blood Blood Culture - Preliminary NO GROWTH AFTER 24 HOURS Resulted 03/22/19 13:10 Blood Blood Culture - Preliminary NO GROWTH AFTER 24 HOURS Resulted 03/23/19 04:55 Sputum Gram Stain - Final Complete 03/23/19 04:55 Sputum Sputum Culture - Final Complete 03/22/19 22:55 Urine,Clean Catch Urine Culture - Preliminary NO GROWTH AFTER 24 HOURS Resulted 03/22/19 14:46 Rectum Received Objective HEAD AND SHOWS: No JVD. LUNGS: Clear. CARDIOVASCULAR: Regular S1 and S2 with no gallop or murmur, tachycardic ABDOMEN: Soft. EXTREMITIES: No pitting edema. Sabino Goncalves MD Mar 24, 2019 13:41
--- NOTE | 2019-03-24 13:47 | NUR ---
SWALLOW/SPEECH THERAPY NOTE: SWALLOW STATUS: PATIENT IS ALERT (LOOKS TIRED) AND HAVING LUNCH. HE AND FAMILY MEMBER DENY THAT HE IS HAVING SWALLOWING PROBLEMS. THE PT ADMITS THAT SOMETIMES THE LIQUID COMES OUT OF HIS MOUTH ON THE RIGHT BUT ALSO THE LEFT SIDE AT TIMES. ASKED PATIENT TO TRY TO REPOSITION HIMSELF HE WAS LEANING TO THE LEFT. GOALS NOT MET FOR INTAKE AND PATIENT TOOK ONLY 25% INTAKE ON CCHO-MED REGULAR DIET AND THIN LIQUIDS. WILL ADD HIGH JOSE MANUEL SUP AND PUT ON CALORIE COUNT PER RD. NO APPARENT NOR REPORTED S/S OF ASPIRATION ON CURRENT DIET/LIQUIDS. GOALS MET FOR FAMILY, PATIENT, NEW STAFF (MIKE) EDUCATED IN POSTED ASPIRATION AND REFLUX PRECAUTIONS. PER CT HEAD SCAN: Report Date:03/22/19 Procedure: CT Head no Contrast Indication: Altered mental status There is a 1.4 cm hypodensity in the left luther radiata consistent with a lacunar infarct. This is age indeterminate but probably old. Correlate clinically. There is no acute hemorrhage. No mass effect identified. There is moderate prominence of the ventricles, basal cisterns, and cerebral sulci consistent with atrophy. Moderate, nonspecific, white matter hypoattenuation is noted throughout the brain consistent with chronic small vessel disease.There is no midline shift, edema, acute hemorrhage, mass effect, or abnormal extra-axial fluid collections. Bones are unremarkable. Impression: 1.4 cm lacunar infarct in the left periventricular white matter probably old. Correlate clinically. Moderate atrophy of the brain. Evidence of chronic small vessel disease involving white matter tracts. PLAN: COMPLETE MODIFIED BARIUM SWALLOW STUDY IP OR OP IF DC TO FURTHER ASSESS SWALLOW, DETERMINE SILENT ASP RISK/ETIOLOGY, AND ATTEMPT TRIAL TX TECHNIQUES. CONTINUE WITH CURRENT DIET/LIQUIDS CCHO-MED REG TEXTURE AND THIN LIQUIDS WITH POSTED ASPIRATION AND REFLUX PRECAUTIONS AND 1 TO 1 FEEDING ASSIST MOSTLY. WILL PURSUE COG-COM EVAL/TX ORDER
--- NOTE | 2019-03-24 14:25 | NUR ---
NURSE NOTES:WOUND CARE NOTES:Pt presented on admission with non-blanchable erythema sacrum (L)3cm x (W)4cm. Tender when minimally palpated. Scrotal area is red. Non-blanchable erythema with fluctuance noted to L heel.Pt denied tenderness when minimally palpated. Non-blanchable erythema without fluctuance R heel. Non-tender when minimally palpated. Discussed with pt skin breakdown noted at present and pt was educated on wound prevention. Instructed pt to frequently reposition self in bed. Instructed pt on using siderails to shift weight. Instructed to avoid slif=ding against bed linens but to off-lift buttocks when repositioning.Pt also instructed on keeping heels floated off bed with pillows. Tx.Plan: Apply Moisture Barrier Paste to scrotum with each perineal care. Apply Moisture Barrier Paste to sacrum. Cover with Optifoam drsg. Change every 3 days and prn. Apply Cavilon Skin Barrier to both heels. Cover each heel with Optifoam drsg. Change every 7 days and prn. Assist with repositioning at least every 2hours or as tolerated. Off-load heels with pillow.
[2019-03-24] MEDS ORDERED: D5NS 1000ml IV ONE (15:07)
--- NOTE | 2019-03-24 15:54 | Infectious Diseases Prog Note ---
Assessment/Plan Assessment/Plan Assessment: Probable UTI (+hematuria, leukocytosis) -ucx NTD -Bcx NTD Afebrile Mild leukocytosis; improving -CXR: Chronic lung disease. No change -sp cx oral contamination Generalized weakness -CT head: 1.4 cm lacunar infarct in the left periventricular white matter probably old. Correlate clinically. Moderate atrophy of the brain. Evidence of chronic small vessel disease involving white matter tracts. CATHERINE anemia GERD CVA w/ R side deficit DM2 Plan: -Continue Ceftriaxone #2 (abx d #3) pending UCx -if ucx neg, will d/c -03/23 SP IV Vancomycin #2, CEfepime #2 -f/u cx -Monitor CBC/CMP, temperatures Thank you for this consultation. Will continue to follow along with you. Discussed with RN. Subjective Allergies: Coded Allergies: No Known Allergies (Unverified , 01/04/19) Subjective afebrile wbc improving Objective Vital Signs Last 24 Hour Vital Signs Date Time Temp Pulse Resp B/P (MAP) Pulse Ox O2 Delivery O2 Flow Rate FiO2 03/24/19 12:00 97.8 96 18 123/72 (89) 94 03/24/19 11:33 97 03/24/19 08:44 Nasal Cannula 3.0 03/24/19 08:00 97.8 98 18 122/69 (86) 98 03/24/19 07:29 100 03/24/19 04:00 97.8 100 20 136/76 (96) 96 03/24/19 04:00 96 03/24/19 00:00 97.6 95 18 117/62 (80) 96 03/24/19 00:00 92 03/23/19 22:26 94 03/23/19 21:00 Nasal Cannula 3.0 03/23/19 20:00 97.8 99 18 106/67 (80) 96 03/23/19 19:34 96 Nasal Cannula 3.0 32 03/23/19 19:34 98 18 96 Nasal Cannula 3.0 32 03/23/19 16:00 97.5 101 20 134/75 (94) 99 Height (Feet): 5 Height (Inches): 10.00 Weight (Pounds): 170 Microbiology Date/Time Source Procedure Growth Status 03/22/19 13:23 Blood Blood Culture - Preliminary NO GROWTH AFTER 24 HOURS Resulted 03/22/19 13:10 Blood Blood Culture - Preliminary NO GROWTH AFTER 24 HOURS Resulted 03/23/19 04:55 Sputum Gram Stain - Final Complete 03/23/19 04:55 Sputum Sputum Culture - Final Complete 03/22/19 22:55 Urine,Clean Catch Urine Culture - Preliminary NO GROWTH AFTER 24 HOURS Resulted 03/22/19 14:46 Rectum Received Laboratory Tests Test 03/24/19 05:00 White Blood Count 12.8 K/UL (4.8-10.8) H Red Blood Count 5.47 M/UL (4.70-6.10) Hemoglobin 15.2 G/DL (14.2-18.0) Hematocrit 47.0 % (42.0-52.0) Mean Corpuscular Volume 86 FL (80-99) Mean Corpuscular Hemoglobin 27.8 PG (27.0-31.0) Mean Corpuscular Hemoglobin Concent 32.4 G/DL (32.0-36.0) Red Cell Distribution Width 12.1 % (11.6-14.8) Platelet Count 307 K/UL (150-450) Mean Platelet Volume 6.8 FL (6.5-10.1) Neutrophils (%) (Auto) 75.5 % (45.0-75.0) H Lymphocytes (%) (Auto) 11.1 % (20.0-45.0) L Monocytes (%) (Auto) 9.9 % (1.0-10.0) Eosinophils (%) (Auto) 2.5 % (0.0-3.0) Basophils (%) (Auto) 1.0 % (0.0-2.0) Sodium Level 139 MMOL/L (136-145) Potassium Level 4.4 MMOL/L (3.5-5.1) Chloride Level 107 MMOL/L (98-107) Carbon Dioxide Level 22 MMOL/L (21-32) Anion Gap 10 mmol/L (5-15) Blood Urea Nitrogen 36 mg/dL (7-18) H Creatinine 1.4 MG/DL (0.55-1.30) H Estimat Glomerular Filtration Rate mL/min (>60) Glucose Level 92 MG/DL (74-106) Hemoglobin A1c 6.0 % (4.3-6.0) Uric Acid 7.6 MG/DL (2.6-7.2) H Calcium Level 8.9 MG/DL (8.5-10.1) Phosphorus Level 2.8 MG/DL (2.5-4.9) Magnesium Level 2.1 MG/DL (1.8-2.4) Total Bilirubin 0.6 MG/DL (0.2-1.0) Gamma Glutamyl Transpeptidase 9 U/L (5-85) Aspartate Amino Transf (AST/SGOT) 18 U/L (15-37) Alanine Aminotransferase (ALT/SGPT) 10 U/L (12-78) L Alkaline Phosphatase 76 U/L (46-116) Ammonia 37 umol/L (11-32) H Total Creatine Kinase 31 U/L (26-308) Troponin I 0.010 ng/mL (0.000-0.056) C-Reactive Protein, Quantitative 12.7 mg/dL (0.00-0.90) H Pro-B-Type Natriuretic Peptide 480 pg/mL (0-125) H Total Protein 6.4 G/DL (6.4-8.2) Albumin 2.3 G/DL (3.4-5.0) L Globulin 4.1 g/dL Albumin/Globulin Ratio 0.6 (1.0-2.7) L Triglycerides Level 68 MG/DL (30-150) Cholesterol Level 113 MG/DL (< 200) LDL Cholesterol 69 mg/dL (<100) HDL Cholesterol 29 MG/DL (40-60) L Cholesterol/HDL Ratio 3.9 (3.3-4.4) Vitamin B12 Level 362 PG/ML (193-986) Folate 9.1 NG/ML (8.6-58.9) Thyroid Stimulating Hormone (TSH) 0.571 uiU/mL (0.358-3.740) Current Medications Medications (Trade) Dose Ordered Sig/Amaya Route PRN Reason Start Time Stop Time Status Last Admin Dose Admin Acetaminophen (Tylenol) 650 mg Q4H PRN ORAL fever 03/23/19 21:00 04/21/19 20:59 Albuterol/ Ipratropium (Albuterol/ Ipratropium) 3 ml Q4H PRN HHN Shortness of Breath 03/23/19 21:00 03/27/19 20:59 Ceftriaxone Sodium 1 gm/ Dextrose 55 ml @ 110 mls/hr Q24H IVPB 03/24/19 10:00 03/31/19 09:59 03/24/19 10:56 Cyanocobalamin (Vitamin B12) 1,000 mcg DAILY SUBQ 03/24/19 15:00 03/26/19 09:01 Dextrose (Dextrose 50%) 25 ml Q30M PRN IV Hypoglycemia 03/23/19 21:00 04/21/19 13:45 Dextrose (Dextrose 50%) 50 ml Q30M PRN IV hypoglycemia 03/23/19 21:00 04/21/19 13:59 Diazepam (Valium) 5 mg BEDTIME PRN ORAL For Anxiety 03/23/19 21:00 03/29/19 13:44 03/23/19 23:16 Docusate Sodium (Colace) 100 mg TID ORAL 03/24/19 09:00 04/22/19 17:59 03/24/19 14:21 Heparin Sodium (Porcine) (Heparin 5000 units/ml) 5,000 units EVERY 12 HOURS SUBQ 03/23/19 21:00 04/21/19 20:59 03/24/19 10:12 Insulin Aspart (NovoLOG) BEFORE MEALS AND HS SUBQ 03/23/19 21:00 04/21/19 16:29 Morphine Sulfate (Morphine Sulfate) 2 mg Q4H PRN IVP Moderate Pain (Pain Scale 4-6) 03/23/19 21:00 03/29/19 20:59 Nitroglycerin (Ntg) 0.4 mg Q5M PRN SL Prn Chest Pain 03/23/19 21:00 04/21/19 13:44 Ondansetron HCl (Zofran) 4 mg Q6H PRN IVP Nausea & Vomiting 03/23/19 21:00 04/22/19 20:59 Pantoprazole (Protonix) 40 mg DAILY ORAL 03/24/19 09:00 04/23/19 08:59 03/24/19 10:02 Polyethylene Glycol (Miralax) 17 gm DAILYPRN PRN ORAL Constipation 03/23/19 21:00 04/22/19 20:59 Sodium Chloride 1,000 ml @ 75 mls/hr [id number] IV 03/23/19 21:00 04/22/19 15:44 03/24/19 10:17 Solifenacin (Vesicare) 10 mg DAILY ORAL 03/24/19 09:00 04/22/19 08:59 03/24/19 10:02 Tamsulosin HCl (Flomax) 0.4 mg BID ORAL 03/24/19 09:00 04/21/19 20:59 03/24/19 10:03 Temazepam (Restoril) 15 mg HSPRN PRN ORAL Insomnia 03/23/19 21:00 03/30/19 20:59 Daly Sánchez M.D. Mar 24, 2019 15:54
--- NOTE | 2019-03-24 15:58 | Diagnostic Imaging Report ---
Indication: [age]-year-old male inpatient with right-sided weakness and facial upper and lower extremity weakness Technique: sagittal T1 fast spin echo, axial T1 FLAIR, axial T2 FLAIR, axial T2 FS PROPELLER, axial T2* GRE, axial diffusion weighted images. ADC and exponential ADC maps generated Comparison: CT scan dated 03/22/2019 Findings: There is a round focus of restricted diffusion in the left luther radiata extending into the posterior basal ganglia and possibly extending into the cerebral peduncle. There is also a tiny focus of restricted diffusion in the right posterior parietal tobar-white junction. There is faint abnormal diffusion signal in the right posterior thalamus which demonstrates increased T2 signal, and a separate focus in the right posterior basal ganglia extending into the cerebral peduncle. The signal abnormality in the left luther radiata and that in the right posterior parietal lobes demonstrate corresponding increased T2 signal on the T2-weighted images. There is also a hypoattenuating area in the left luther radiata on the CT scan corresponding to the diffusion abnormality. There is no evidence of associated hemorrhage No acute hemorrhage or edema. No mass effect nor midline shift. There is a tiny old lacunar infarct in the right brachium pontis. There is minimal periventricular high T2 signal. There is mild age-related enlargement of the ventricles and extra axial CSF spaces. There is right maxillary sinus mucosal thickening. The visualized orbits are unremarkable. The vascular flow voids are preserved. Impression: Positive for acute versus subacute lacunar infarct of the left luther radiata extending into the left basal ganglia. Presence of a fairly well-defined abnormality on recent CT scan indicates that this is subacute Tiny acute versus subacute infarcts of the left posterior tobar-white junction and of the right thalamus Multiplicity of infarcts indicates embolic etiology. Distribution over multiple vascular territories suggests cardiac origin. It is possible that all of these originate from the posterior circulation, but the left-sided infarct is more likely from the anterior circulation More questionable diffusion restriction extending into the bilateral cerebral peduncles. Suspect that these findings are artifactual Negative for acute intercranial bleed or mass effect Other chronic and age-related changes, as described Critical value finding discussed by phone with Dr. Moore at the time of interpretation
[2019-03-24 16:00] VITALS: BP 120/72
--- NOTE | 2019-03-24 17:00 | NUR ---
NURSE NOTES: Education about post stroke was given. Gave verbal education about diet on salt intake. Gave basic instructions about the need of physical therapy and passive range of motion of right side. Encourage the need to turn every two hours.
[2019-03-24] MEDS: Vitamin B12 1000mcg/ml Inj SUBQ SCH (17:09)
--- NOTE | 2019-03-24 19:50 | NUR ---
HAND-OFF: Report given to BRYAN Hull. Endorsed about 3rd attempt for IV access unsuccessful. Patient needs new IV access. patient was repositioned. Vo emptied was 1000ml dark yellow urine.
--- NOTE | 2019-03-24 19:51 | NUR ---
NURSE NOTES: Got report from Negro ADAMS. Pt in stable condition. Denies any pain. No s/s of distress or discomfort noted. Pt resting in bed comfortably. Bed in low and locked position, call light within reach, bedside table within reach. Continue to monitor.
[2019-03-24 20:00] VITALS: BP 117/67
[2019-03-25] VITALS: BP 125/68
[2019-03-25] MEDS: Miralax 17gm pkt ORAL PRN ×2 (00:25→21:42)
--- NOTE | 2019-03-25 04:45 | Consultation ---
DATE OF CONSULTATION: 03/22/2019 PSYCHOTHERAPY CONSULTATION PROGRESS NOTE CONSULTING PHYSICIAN: Joni Sainz PsyD. ATTENDING PHYSICIAN: Chris Tipton D.O. HISTORY OF PRESENT ILLNESS: The patient is an 83-year-old male patient from [facility]. The patient was brought to the hospital for weakness and dehydration. The patient was referred for psychotherapeutic services for anxiety and depression. He states he suffered from a stroke. His right side of his body is not functioning at this time. When I assessed this patient, the patient states that he has rather improved. He states that because he cannot move, his hands are tight because he fell, and he has been feeling lost, depression, and anxiety due to his current medical condition. The patient denies suicidal or homicidal thoughts of ideation. Denies any auditory or visual hallucinations. The patient is able to fully participate in treatment. The patient felt suicidal and hopelessness during the assessment. PAST MEDICAL HISTORY: Includes a history of CVA, diabetes, and hypertension. ALLERGIES: The patient has no known drug allergies. SUBSTANCE ABUSE HISTORY: There is no indication of alcohol use, illicit substances, or cigarettes. PSYCHIATRIC HISTORY: The patient states that he does have a history of depression and anxiety. He states that he does see a psychiatrist and a psychologist. Lives at nursing facility. SOCIAL HISTORY: The patient is an 83-year-old male patient from [facility]. Financially sustained through [employer]. MENTAL STATUS EXAMINATION: The patient is alert and oriented to person, place, time, and situation. Mood is anxious. Affect is blunted. Thought process, disorganized. Thought content, limited. Fair attention and concentration. Fair insight, judgment, and impulse control. I ASSESSED THIS PATIENT. PROVIDED THE PATIENT WITH: 1. Supportive psychotherapy, which would provide the patient with emotional outlet and means to cope with his emotional distress. 2. Provided the patient with cognitive behavioral therapy, which can help with a range of problems that involve patterns of thinking and acting that are problematic, adjusting the patient's feelings of depression, mood, and anxiety. We discussed positive coping skills and we discussed the other concerns to reduce anxiety including relaxation exercises, breathing exercises and positive thoughts as well. 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 This clinician has reviewed the patient's chart and discussed the treatment with treatment team. Psychotherapy provided to this patient, 15 minutes. Plan is to maintain medication compliance as well as positive coping skills and stabilizing thoughts and behavior. Joni Sainz PsyD. DR: AISHA JOB#: [id number] CC:
[2019-03-25] MEDS: NovoLOG Insulin Flexpen SUBQ SCH ×4 (06:11→20:36)
--- NOTE | 2019-03-25 07:00 | NUR ---
HAND-OFF: Report given to Blanca ADAMS. Endorsed plan of care.
[2019-03-25 07:13] LABS: BASOPHILS % (AUTO) 1.2 % (0.0-2.0); EOSINOPHILS % (AUTO) 3.1 % (0.0-3.0); HEMATOCRIT 46.2 % (42.0-52.0); HEMOGLOBIN 14.8 G/DL (14.2-18.0); LYMPHOCYTES % (AUTO) 12.7 % (20.0-45.0); MEAN CORPUSCULAR VOLUME 85 FL (80-99); MONOCYTES % (AUTO) 10.4 % (1.0-10.0); NEUTROPHILS % (AUTO) 72.5 % (45.0-75.0); PLATELET COUNT 326 K/UL (150-450); RED BLOOD COUNT 5.42 M/UL (4.70-6.10); WHITE BLOOD COUNT 11.4 K/UL (4.8-10.8)
[2019-03-25 07:26] LABS: ANION GAP 10 mmol/L (5-15); BLOOD UREA NITROGEN 33 mg/dL (7-18); CARBON DIOXIDE 22 MMOL/L (21-32); CHLORIDE 107 MMOL/L (98-107); CREATININE 1.3 MG/DL (0.55-1.30); POTASSIUM 4.2 MMOL/L (3.5-5.1); SODIUM 139 MMOL/L (136-145)
--- NOTE | 2019-03-25 07:46 | NUR ---
NURSE NOTES: Received report from BRYAN Hull. The patient is having a breakfast on the bed without acute distress or shortness of breath. The patient's bed in the lowest position, call light in reach, and fall and aspiration precaution reinforced. IV site intact and patent. Will continue plan of care.
[2019-03-25 08:00] VITALS: BP 130/82
[2019-03-25] MEDS: Docusate 100mg cap ORAL SCH ×3 (08:42→17:08)
[2019-03-25] MEDS: Tamsulosin 0.4mg cap ORAL SCH ×2 (08:43→17:09)
[2019-03-25] MEDS: Solifenacin 10mg tab ORAL SCH (08:43)
[2019-03-25] MEDS: Vitamin B12 1000mcg/ml Inj SUBQ SCH (08:46)
[2019-03-25] MEDS: Heparin 5000 units/ml inj SUBQ SCH ×2 (08:46→20:36)
[2019-03-25] MEDS: cefTRIAXone 1 GM in D5W 55 ML IVPB SCH (10:04)
--- NOTE | 2019-03-25 10:30 | NUR ---
NURSE NOTES: Wound assessment and dressing change completed. Will continue to monitor the patient.
--- NOTE | 2019-03-25 11:26 | Pulmonology Progress Note ---
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 fib, which possibly could cause stroke and was on Eliquis, which stopped due to anemia currently H&H stable consider restart Eliquis - per cardio discretion for now continue DVT prophylaxis with heparin and ASA swallow eval noted, diet as per ST recommendation with aspiration precaution PT continue empiric abx ID follows BCX negative preliminary, UCX negative SCX inadequate collection, need to be resubmitted leukocytosis trending down, no fevers BS management with SSI BP management IVF, creat trending down, decrease rate monitor renal parameters, lytes, correct electrolytes as needed, avoid nephrotoxic GI prophylaxis Pain management Bowel regimen; lactulose x 1 Supportive care case discussed and evaluated by supervising physician Subjective Allergies: Coded Allergies: No Known Allergies (Unverified , 01/04/19) Subjective no signs of resp distress no new weakness SR on monitor no CP, SOB reports constipation Objective Last 24 Hour Vital Signs Date Time Temp Pulse Resp B/P (MAP) Pulse Ox O2 Delivery O2 Flow Rate FiO2 03/25/19 08:00 97.8 94 18 130/82 (98) 95 03/25/19 06:40 74 18 96 Nasal Cannula 3.0 32 03/25/19 06:40 96 Nasal Cannula 3.0 32 03/25/19 04:20 82 03/25/19 00:00 93 03/25/19 00:00 98.0 85 18 125/68 (87) 95 03/24/19 21:47 97 Nasal Cannula 3.0 32 03/24/19 21:47 87 18 97 Nasal Cannula 3.0 32 03/24/19 21:00 Nasal Cannula 3.0 03/24/19 20:00 98.7 87 16 117/67 (84) 95 03/24/19 20:00 89 03/24/19 16:00 97.8 96 18 120/72 (88) 94 03/24/19 15:56 88 03/24/19 12:00 97.8 96 18 123/72 (89) 94 03/24/19 11:33 97 Intake and Output 03/24/19 03/25/19 19:00 07:00 Output Total 1000 ml 500 ml Balance -1000 ml -500 ml Output Urine Total 1000 ml 500 ml General Appearance: no acute distress, other - awake, alert, somewhat anxious male HEENT: normocephalic, atraumatic, anicteric, mucous membranes moist Respiratory/Chest: lungs clear, no respiratory distress, no accessory muscle use Cardiovascular: normal rate Abdomen: normal bowel sounds, soft, non tender, non distended Extremities: no edema, pedal pulses normal Neurologic/Psychiatric: abnormal gait, alert, oriented x 3, responsive, other - slurred speech, R hemiparesis Musculoskeletal: atrophy - BLE Microbiology Date/Time Source Procedure Growth Status 03/22/19 13:23 Blood Blood Culture - Preliminary NO GROWTH AFTER 48 HOURS Resulted 03/22/19 13:10 Blood Blood Culture - Preliminary NO GROWTH AFTER 48 HOURS Resulted 03/23/19 04:55 Sputum Gram Stain - Final Complete 03/23/19 04:55 Sputum Sputum Culture - Final Complete 03/22/19 14:46 Nasal Nares MRSA Culture - Final NO METHICILLIN RESISTANT STAPH AUREUS... Complete 03/22/19 22:55 Urine,Clean Catch Urine Culture - Final NO GROWTH AFTER 48 HOURS Complete 03/22/19 14:46 Rectum - Final NO CARBAPENEM-RESISTANT ENTEROBACTERI... Complete 03/22/19 14:46 Rectum VRE Culture - Final NO VANCOMYCIN RESISTANT ENTEROCOCCUS ... Complete Laboratory Tests 03/25/19 05:20: White Blood Count 11.4H, Red Blood Count 5.42, Hemoglobin 14.8, Hematocrit 46.2 , Mean Corpuscular Volume 85, Mean Corpuscular Hemoglobin 27.2, Mean Corpuscular Hemoglobin Concent 31.9L, Red Cell Distribution Width 12.0, Platelet Count 326, Mean Platelet Volume 6.9, Neutrophils (%) (Auto) 72.5, Lymphocytes (%) (Auto) 12.7L, Monocytes (%) (Auto) 10.4H, Eosinophils (%) (Auto ) 3.1H, Basophils (%) (Auto) 1.2, Sodium Level 139, Potassium Level 4.2, Chloride Level 107, Carbon Dioxide Level 22, Anion Gap 10, Blood Urea Nitrogen 33H, Creatinine 1.3, Estimat Glomerular Filtration Rate , Glucose Level 100, Calcium Level 9.0 Current Medications Medications (Trade) Dose Ordered Sig/Amaya Route PRN Reason Start Time Stop Time Status Last Admin Dose Admin Acetaminophen (Tylenol) 650 mg Q4H PRN ORAL fever 03/23/19 21:00 04/21/19 20:59 Albuterol/ Ipratropium (Albuterol/ Ipratropium) 3 ml Q4H PRN HHN Shortness of Breath 03/23/19 21:00 03/27/19 20:59 Ceftriaxone Sodium 1 gm/ Dextrose 55 ml @ 110 mls/hr Q24H IVPB 03/24/19 10:00 03/31/19 09:59 03/25/19 10:04 Cyanocobalamin (Vitamin B12) 1,000 mcg DAILY SUBQ 03/24/19 15:00 03/26/19 09:01 03/25/19 08:46 Dextrose (Dextrose 50%) 25 ml Q30M PRN IV Hypoglycemia 03/23/19 21:00 04/21/19 13:45 Dextrose (Dextrose 50%) 50 ml Q30M PRN IV hypoglycemia 03/23/19 21:00 04/21/19 13:59 Diazepam (Valium) 5 mg BEDTIME PRN ORAL For Anxiety 03/23/19 21:00 03/29/19 13:44 03/23/19 23:16 Docusate Sodium (Colace) 100 mg TID ORAL 03/24/19 09:00 04/22/19 17:59 03/25/19 08:42 Heparin Sodium (Porcine) (Heparin 5000 units/ml) 5,000 units EVERY 12 HOURS SUBQ 03/23/19 21:00 04/21/19 20:59 03/25/19 08:46 Insulin Aspart (NovoLOG) BEFORE MEALS AND HS SUBQ 03/23/19 21:00 04/21/19 16:29 Morphine Sulfate (Morphine Sulfate) 2 mg Q4H PRN IVP Moderate Pain (Pain Scale 4-6) 03/23/19 21:00 03/29/19 20:59 Nitroglycerin (Ntg) 0.4 mg Q5M PRN SL Prn Chest Pain 03/23/19 21:00 04/21/19 13:44 Ondansetron HCl (Zofran) 4 mg Q6H PRN IVP Nausea & Vomiting 03/23/19 21:00 04/22/19 20:59 Pantoprazole (Protonix) 40 mg DAILY ORAL 03/24/19 09:00 04/23/19 08:59 03/25/19 08:43 Polyethylene Glycol (Miralax) 17 gm DAILYPRN PRN ORAL Constipation 03/23/19 21:00 04/22/19 20:59 03/25/19 00:25 Sodium Chloride 1,000 ml @ 75 mls/hr [id number] IV 03/23/19 21:00 04/22/19 15:44 03/24/19 10:17 Solifenacin (Vesicare) 10 mg DAILY ORAL 03/24/19 09:00 04/22/19 08:59 03/25/19 08:43 Tamsulosin HCl (Flomax) 0.4 mg BID ORAL 03/24/19 09:00 04/21/19 20:59 03/25/19 08:43 Temazepam (Restoril) 15 mg HSPRN PRN ORAL Insomnia 03/23/19 21:00 03/30/19 20:59 Krystal Sherman NP Mar 25, 2019 11:26
[2019-03-25 12:00] VITALS: BP 118/73
--- NOTE | 2019-03-25 12:28 | General Progress Note ---
Assessment/Plan Problem List: (1) UTI (urinary tract infection) ICD Codes: N39.0 - Urinary tract infection, site not specified SNOMED: 85420998 (2) Hypertension ICD Codes: I10 - Essential (primary) hypertension SNOMED: 45388877 (3) Chronic constipation ICD Codes: K59.09 - Other constipation SNOMED: 288145474 (4) Weakness ICD Codes: R53.1 - Weakness SNOMED: 19914447 (5) Diabetes mellitus ICD Codes: E11.9 - Type 2 diabetes mellitus without complications SNOMED: 32086961 (6) Episode of generalized weakness ICD Codes: R53.1 - Weakness SNOMED: 48955240 Status: stable, progressing Assessment/Plan: pt diet abx cbc bmp am aru eval Subjective Constitutional: Reports: weakness Allergies: Coded Allergies: No Known Allergies (Unverified , 01/04/19) All Systems: reviewed and negative except above Subjective o2nc sl anxious in bed Objective Last 24 Hour Vital Signs Date Time Temp Pulse Resp B/P (MAP) Pulse Ox O2 Delivery O2 Flow Rate FiO2 03/25/19 08:00 97.8 94 18 130/82 (98) 95 03/25/19 06:40 74 18 96 Nasal Cannula 3.0 32 03/25/19 06:40 96 Nasal Cannula 3.0 32 03/25/19 04:20 82 03/25/19 00:00 93 03/25/19 00:00 98.0 85 18 125/68 (87) 95 03/24/19 21:47 97 Nasal Cannula 3.0 32 03/24/19 21:47 87 18 97 Nasal Cannula 3.0 32 03/24/19 21:00 Nasal Cannula 3.0 03/24/19 20:00 98.7 87 16 117/67 (84) 95 03/24/19 20:00 89 03/24/19 16:00 97.8 96 18 120/72 (88) 94 03/24/19 15:56 88 Intake and Output 03/24/19 03/25/19 19:00 07:00 Output Total 1000 ml 500 ml Balance -1000 ml -500 ml Output Urine Total 1000 ml 500 ml Laboratory Tests 03/25/19 05:20: White Blood Count 11.4H, Red Blood Count 5.42, Hemoglobin 14.8, Hematocrit 46.2 , Mean Corpuscular Volume 85, Mean Corpuscular Hemoglobin 27.2, Mean Corpuscular Hemoglobin Concent 31.9L, Red Cell Distribution Width 12.0, Platelet Count 326, Mean Platelet Volume 6.9, Neutrophils (%) (Auto) 72.5, Lymphocytes (%) (Auto) 12.7L, Monocytes (%) (Auto) 10.4H, Eosinophils (%) (Auto ) 3.1H, Basophils (%) (Auto) 1.2, Sodium Level 139, Potassium Level 4.2, Chloride Level 107, Carbon Dioxide Level 22, Anion Gap 10, Blood Urea Nitrogen 33H, Creatinine 1.3, Estimat Glomerular Filtration Rate , Glucose Level 100, Calcium Level 9.0 Height (Feet): 5 Height (Inches): 10.00 Weight (Pounds): 170 General Appearance: lethargic EENT: normal ENT inspection Neck: normal alignment Cardiovascular: normal peripheral pulses, normal rate, regular rhythm Respiratory/Chest: chest wall non-tender, lungs clear, normal breath sounds Abdomen: normal bowel sounds, non tender, soft Extremities: normal inspection Edema: no edema noted Arm (L), no edema noted Arm (R), no edema noted Leg (L), no edema noted Leg (R), no edema noted Pedal (L), no edema noted Pedal (R), no edema noted Generalized Neurologic: responsive, motor weakness Skin: normal pigmentation, warm/dry Chris Tipton DO Mar 25, 2019 12:28
[2019-03-25] MEDS ORDERED: Lactulose 20gm/30ml UDC ORAL SCH (12:30)
--- NOTE | 2019-03-25 13:00 | NUR ---
NURSE NOTES: Waiting for case management's call regarding placement for acute rehab per order. Will continue to monitor the patient.
--- NOTE | 2019-03-25 13:03 | Cardiac Electrophysiology PN ---
Assessment/Plan Assessment/Plan 1. Possible atrial fibrillation causing stroke. Was on Eliquis 5 mg b.i.d. that is changed to heparin subcutaneous. EKG and tele showed SR and echocardiogram showed Nl EF 2. HTN , currently off antihypertensives. 3. Diabetes. 4. CVA with hemiplegia. MRI Impression: Positive for acute versus subacute lacunar infarct of the left luther radiata extending into the left basal ganglia. Presence of a fairly well-defined abnormality on recent CT scan indicates that this is subacute 5. Renal failure with creatinine of 1.5. 6. Anemia. Eliquis has been held. Transfer to [facility] Subjective Subjective Alert in NAD. No CP or SOB.In Sinus tach 110 Objective Last 24 Hour Vital Signs Date Time Temp Pulse Resp B/P (MAP) Pulse Ox O2 Delivery O2 Flow Rate FiO2 03/25/19 08:00 97.8 94 18 130/82 (98) 95 03/25/19 06:40 74 18 96 Nasal Cannula 3.0 32 03/25/19 06:40 96 Nasal Cannula 3.0 32 03/25/19 04:20 82 03/25/19 00:00 93 03/25/19 00:00 98.0 85 18 125/68 (87) 95 03/24/19 21:47 97 Nasal Cannula 3.0 32 03/24/19 21:47 87 18 97 Nasal Cannula 3.0 32 03/24/19 21:00 Nasal Cannula 3.0 03/24/19 20:00 98.7 87 16 117/67 (84) 95 03/24/19 20:00 89 03/24/19 16:00 97.8 96 18 120/72 (88) 94 03/24/19 15:56 88 Intake and Output 03/24/19 03/25/19 19:00 07:00 Output Total 1000 ml 500 ml Balance -1000 ml -500 ml Output Urine Total 1000 ml 500 ml Laboratory Tests Test 03/25/19 05:20 White Blood Count 11.4 K/UL (4.8-10.8) H Red Blood Count 5.42 M/UL (4.70-6.10) Hemoglobin 14.8 G/DL (14.2-18.0) Hematocrit 46.2 % (42.0-52.0) Mean Corpuscular Volume 85 FL (80-99) Mean Corpuscular Hemoglobin 27.2 PG (27.0-31.0) Mean Corpuscular Hemoglobin Concent 31.9 G/DL (32.0-36.0) L Red Cell Distribution Width 12.0 % (11.6-14.8) Platelet Count 326 K/UL (150-450) Mean Platelet Volume 6.9 FL (6.5-10.1) Neutrophils (%) (Auto) 72.5 % (45.0-75.0) Lymphocytes (%) (Auto) 12.7 % (20.0-45.0) L Monocytes (%) (Auto) 10.4 % (1.0-10.0) H Eosinophils (%) (Auto) 3.1 % (0.0-3.0) H Basophils (%) (Auto) 1.2 % (0.0-2.0) Sodium Level 139 MMOL/L (136-145) Potassium Level 4.2 MMOL/L (3.5-5.1) Chloride Level 107 MMOL/L (98-107) Carbon Dioxide Level 22 MMOL/L (21-32) Anion Gap 10 mmol/L (5-15) Blood Urea Nitrogen 33 mg/dL (7-18) H Creatinine 1.3 MG/DL (0.55-1.30) Estimat Glomerular Filtration Rate mL/min (>60) Glucose Level 100 MG/DL (74-106) Calcium Level 9.0 MG/DL (8.5-10.1) Microbiology Date/Time Source Procedure Growth Status 03/22/19 13:23 Blood Blood Culture - Preliminary NO GROWTH AFTER 48 HOURS Resulted 03/22/19 13:10 Blood Blood Culture - Preliminary NO GROWTH AFTER 48 HOURS Resulted 03/23/19 04:55 Sputum Gram Stain - Final Complete 03/23/19 04:55 Sputum Sputum Culture - Final Complete 03/22/19 14:46 Nasal Nares MRSA Culture - Final NO METHICILLIN RESISTANT STAPH AUREUS... Complete 03/22/19 22:55 Urine,Clean Catch Urine Culture - Final NO GROWTH AFTER 48 HOURS Complete 03/22/19 14:46 Rectum - Final NO CARBAPENEM-RESISTANT ENTEROBACTERI... Complete 03/22/19 14:46 Rectum VRE Culture - Final NO VANCOMYCIN RESISTANT ENTEROCOCCUS ... Complete Objective HEAD AND SHOWS: No JVD. LUNGS: Clear. CARDIOVASCULAR: Regular S1 and S2 with no gallop or murmur, tachycardic ABDOMEN: Soft. EXTREMITIES: No pitting edema. Sabino Goncalves MD Mar 25, 2019 13:03
--- NOTE | 2019-03-25 13:49 | Neurology Progress Note ---
Interim History Interim History Interim History Mr. Pfeiffer feels a little better. He continues to be essentially plegic on the right. He continues to have a right ptosis - however it is better. The sensations are still normal on the right. He is able to communicate fairly well. He denies any new neurologic problems. Review of Systems Neuro Review of Systems Benign. Objective Physical Exam Last Vital Signs Date Time Temp Pulse Resp B/P (MAP) Pulse Ox O2 Delivery O2 Flow Rate FiO2 03/25/19 12:00 97.8 105 18 118/73 (88) 95 03/25/19 06:40 Nasal Cannula 3.0 32 Laboratory Tests Test 03/25/19 05:20 White Blood Count 11.4 K/UL (4.8-10.8) H Red Blood Count 5.42 M/UL (4.70-6.10) Hemoglobin 14.8 G/DL (14.2-18.0) Hematocrit 46.2 % (42.0-52.0) Mean Corpuscular Volume 85 FL (80-99) Mean Corpuscular Hemoglobin 27.2 PG (27.0-31.0) Mean Corpuscular Hemoglobin Concent 31.9 G/DL (32.0-36.0) L Red Cell Distribution Width 12.0 % (11.6-14.8) Platelet Count 326 K/UL (150-450) Mean Platelet Volume 6.9 FL (6.5-10.1) Neutrophils (%) (Auto) 72.5 % (45.0-75.0) Lymphocytes (%) (Auto) 12.7 % (20.0-45.0) L Monocytes (%) (Auto) 10.4 % (1.0-10.0) H Eosinophils (%) (Auto) 3.1 % (0.0-3.0) H Basophils (%) (Auto) 1.2 % (0.0-2.0) Sodium Level 139 MMOL/L (136-145) Potassium Level 4.2 MMOL/L (3.5-5.1) Chloride Level 107 MMOL/L (98-107) Carbon Dioxide Level 22 MMOL/L (21-32) Anion Gap 10 mmol/L (5-15) Blood Urea Nitrogen 33 mg/dL (7-18) H Creatinine 1.3 MG/DL (0.55-1.30) Estimat Glomerular Filtration Rate mL/min (>60) Glucose Level 100 MG/DL (74-106) Calcium Level 9.0 MG/DL (8.5-10.1) Neurologic Exam Objective PHYSICAL EXAMINATION: GENERAL: He is a well-developed, well-nourished, pleasant gentleman, lying in bed, in no acute distress. HEAD: Normocephalic and atraumatic. EENT: Examination benign. NECK: No neck rigidity was observed. NEUROLOGICAL EXAMINATION: MENTAL STATUS EXAMINATION: He was awake and alert. He was oriented to person, place, and time. He was able to recall 3/3 words immediately, but could remember them in 1 minute and 3 minutes. He was able to remember Presidents Trump and Obama spontaneously, but needed hints to remember through [employer]. His mathematical skills were good. His visuospatial function was minimally impaired. SPEECH: He had no dysarthria. LANGUAGE: He had an anomia for low-frequency words. CRANIAL NERVE EXAMINATION: II: The visual quintanilla were intact. He however had poor vision in the right eye in addition. III, IV & : The external ocular movements were full. The pupils 3 mm in diameter and reactive sluggishly to light. He had (mild 3 mm of) ptosis on the right side. V: He had normal facial sensations and the temporales, masseters, and pterygoids functioned normally. VII: He had a right seventh central facial paresis. VIII: He was able to hear well bilaterally and had no nystagmus. IX: The palate moved symmetrically on phonation. X: He had no hoarseness of voice. XI: The sternocleidomastoids and trapezii functioned normally. XII: The tongue was in the midline without any fasciculations or atrophy. MOTOR SYSTEM: The tone was flaccid in the right upper extremity and diminished in the right lower extremity. Examination of muscle mass revealed no focal wasting. Examination of power revealed G 5/5 power on the left side. On the right side, he had G 0/5 power except for G 2/5 power in the right finger flexors, biceps and ankle plantar flexors. SENSORY EXAMINATION: He had intact sensations to pinprick, light touch, and graphesthesia. COORDINATION: He performed well on [id number] and [id number] testing on the left side, but could not perform on the right side. REFLEXES: 2++ on the right and 1+ on the left at the biceps, triceps, brachioradialis, knees, 0 at both ankles. The plantar response was extensor on the right and flexor on the left. STANCE & GAIT: Could not be tested. Impression/Recommendations Diagnostic Impression 1. Mr. Kemar Pfeiffer is an 83-year-old right-handed, gentleman, with a long history of hypertension, diabetes mellitus, benign prostatic hypertrophy , and gait problems related to spinal stenosis who on 03/11/2019 noticed some problems with walking because his right leg would not carry him too well. On , he became significantly more weak on the right side with involvement of his face , upper and lower extremities. He was taken to another hospital, evaluated there, and was told that he had a stroke. He was kept there for about a week and then sent back to his senior living where he started to feel palpitations and as a result of that was hospitalized at [facility] on 2018. 2. He feels a little better. He continues to be essentially plegic on the right. He continues to have a right ptosis - however it is better. The sensations are still normal on the right. He is able to communicate fairly well. He denies any new neurologic problems. 3. On neurological examination, at this time, he is fully oriented. He has problems with recent and remote memory, problems with visuospatial function, and a mild anomia. He also has right-sided ptosis - which is better and poor vision in the right eye. He in addition has a mild right seventh central facial paresis, right hemiplegia except for G 2/5 power in the right biceps, finger flexors and ankle plantar flexors, brisker reflexes on the right side compared to the left, and an extensor plantar response on the right side. 4. Laboratory data on my initial evaluation revealed that his WBC count was elevated to 14,800, his hemoglobin was at 16.0. His chemistry panel revealed a BUN elevated at 38 with a creatinine of 1.5. His glucose was high at 128. His proBNP was elevated at 641. His albumin was low at 2.5. His urinalysis revealed 1+ leukocyte esterase, too numerous to count red blood cells, and 0-2 white blood cells per high-power field with a moderate amount of bacteria in the urine. 5. Further laboratory tests have revealed a normal lipid panel but a low Vitamin B12 level at 362. The ammonia is also minimally elevated at 37. 6. The CT scan of the brain without contrast revealed atrophy, deep white matter changes, and a recent deep white matter infarct involving the left luther radiata. 7. The MRI of the brain done on 03/24/19 revealed recent infarcts in the left luther radiata and the right parietal deep white matter, and multiple older inrarcts in multiple vacular territories. 8. The patient's history, neurological examination, laboratory data, and imaging studies are most consistent with a recent left luther radiata infarct leading to severe right hemiparesis. The most likely etiology for the patient' s cerebrovascular disease is hypertensive/diabetic cerebrovascular disease. The patient has also been noted to have atrial fibrillation in the past and was on Eliquis which has recently been stopped. The cardiac arrhythmia may may also be responsible for his multiple strokes. Recommendations 1. Continue present management. 2. Treatment of high blood pressure with a goal of < 120/80 at all times in the near future. 3. Strict blood sugar control with the name of hemoglobin A1c <6%. 4. Continue ASA 81 mg q day and restart anticoagulation. 5. Await Carotid Duplex. 6. Treatment of cardiac arrhythmia per Dr. Goncalves. 7. Rehabilitate the patient with the help of physical, occupational, and speech and language therapy. 8. Agree with acute rehab. Huan Estrada M.D., M.S.P.H. Huan Estrada MD Mar 25, 2019 13:48
--- NOTE | 2019-03-25 15:53 | Nephrology Progress Note ---
Assessment/Plan Problem List: (1) Renal failure (ARF), acute on chronic (2) Dehydration (3) UTI (urinary tract infection) (4) Hypertension Assessment Renal failure- mainly dehydration h/o anemia GERD CVA w/ R side deficit DM2 UTI Plan Hydrate- Antibiotics Monitor renal parameters avoid nephrotoxics Subjective ROS Limited/Unobtainable: No Constitutional: Reports: malaise Objective Objective Last 24 Hour Vital Signs Date Time Temp Pulse Resp B/P (MAP) Pulse Ox O2 Delivery O2 Flow Rate FiO2 03/25/19 12:00 105 03/25/19 12:00 97.8 105 18 118/73 (88) 95 03/25/19 09:00 Nasal Cannula 3.0 03/25/19 08:00 101 03/25/19 08:00 97.8 94 18 130/82 (98) 95 03/25/19 06:40 74 18 96 Nasal Cannula 3.0 32 03/25/19 06:40 96 Nasal Cannula 3.0 32 03/25/19 04:20 82 03/25/19 00:00 93 03/25/19 00:00 98.0 85 18 125/68 (87) 95 03/24/19 21:47 97 Nasal Cannula 3.0 32 03/24/19 21:47 87 18 97 Nasal Cannula 3.0 32 03/24/19 21:00 Nasal Cannula 3.0 03/24/19 20:00 98.7 87 16 117/67 (84) 95 03/24/19 20:00 89 03/24/19 16:00 97.8 96 18 120/72 (88) 94 03/24/19 15:56 88 Intake and Output 03/24/19 03/25/19 19:00 07:00 Output Total 1000 ml 500 ml Balance -1000 ml -500 ml Output Urine Total 1000 ml 500 ml Laboratory Tests 03/25/19 05:20: White Blood Count 11.4H, Red Blood Count 5.42, Hemoglobin 14.8, Hematocrit 46.2 , Mean Corpuscular Volume 85, Mean Corpuscular Hemoglobin 27.2, Mean Corpuscular Hemoglobin Concent 31.9L, Red Cell Distribution Width 12.0, Platelet Count 326, Mean Platelet Volume 6.9, Neutrophils (%) (Auto) 72.5, Lymphocytes (%) (Auto) 12.7L, Monocytes (%) (Auto) 10.4H, Eosinophils (%) (Auto ) 3.1H, Basophils (%) (Auto) 1.2, Sodium Level 139, Potassium Level 4.2, Chloride Level 107, Carbon Dioxide Level 22, Anion Gap 10, Blood Urea Nitrogen 33H, Creatinine 1.3, Estimat Glomerular Filtration Rate , Glucose Level 100, Calcium Level 9.0 Height (Feet): 5 Height (Inches): 10.00 Weight (Pounds): 170 General Appearance: no apparent distress Objective no change Devonte Zuniga MD Mar 25, 2019 15:53
[2019-03-25 16:00] VITALS: BP 108/62
--- NOTE | 2019-03-25 18:00 | NUR ---
NURSE NOTES: Spoke with the patient regarding POLST that was brought from [facility]. Per patient, he would like to be on full code as Dr. Tipton ordered. Will continue to monitor the patient.
--- NOTE | 2019-03-25 19:30 | NUR ---
HAND-OFF: Report given to BRYAN Celaya. The patient is resting on the bed without acute distress or shortness of breath. The patient's bed in the lowest position, call light in reach, and fall and aspiration precaution reinforced. Endorsed plan of care.
--- NOTE | 2019-03-25 19:35 | NUR ---
NURSE NOTES: BEDSIDE REPORT RECEIVED FROM BRYAN GUERRERO. PT IS X4, ABLE TO MAKE NEEDS KNOWN. PLASTICS PLATER SHOWING NSR. SKIN IS CLEAN, DRY, DRESSINGS INTACT. 3L NC SATING WELL. RFA 22 RUNNING 1/2 NS @ 50; ASYMPTOMATIC. SPUTUM CULTURE TO BE COLLECTED, WILL CARRY OUT. PT WAS GIVEN LACTULOSE AND MIRALAX FOR BM, WILL TRY ENEMA IF PT DOES NOT HAVE A BM. BED IS LOCKED IN LOWEST POSITION, SR X3, CALL STANLEY W/ IN REACH, BED ALARM ON. WILL CONTINUE TO MONITOR AND FOLLOW W/ PLAN OF CARE.
[2019-03-25 20:00] VITALS: BP 134/73
--- NOTE | 2019-03-25 21:51 | Infectious Diseases Prog Note ---
Assessment/Plan Assessment/Plan Assessment: Probable UTI (+hematuria, leukocytosis) -ucx Neg -Bcx NTD Afebrile Mild leukocytosis; improving -CXR: Chronic lung disease. No change -sp cx oral contamination Generalized weakness Acute vs subacute lacunar infarct- ?embolic source- suspect 2ry to Afib -MRI brain: Positive for acute versus subacute lacunar infarct of the left luther radiata extending into the left basal ganglia. Presence of a fairly well- defined abnormality on recent CT scan indicates that this is subacute. Tiny acute versus subacute infarcts of the left posterior tobar-white junction and of the right thalamus. Multiplicity of infarcts indicates embolic etiology. Distribution over multiple vascular territories suggests cardiac origin. It is possible that all of these originate from the posterior circulation, but the left-sided infarct is more likely from the anterior circulation More questionable diffusion restriction extending into the bilateral cerebral peduncles. Suspect that these findings are artifactual. Negative for acute intracranial bleed or mass effect -CT head: 1.4 cm lacunar infarct in the left periventricular white matter probably old. Correlate clinically. Moderate atrophy of the brain. Evidence of chronic small vessel disease involving white matter tracts. -2d Echo: no thrombus, no vegetations CATHERINE; improving Afib anemia GERD CVA w/ R side deficit DM2 Plan: -Continue Ceftriaxone #3 (abx d #4/5) for probable UTI -03/23 SP IV Vancomycin #2, CEfepime #2 -f/u cx -Monitor CBC/CMP, temperatures -Cards f/u Thank you for this consultation. Will continue to follow along with you. Discussed with RN. Subjective Allergies: Coded Allergies: No Known Allergies (Unverified , 01/04/19) Subjective afebrile wbc improving Objective Vital Signs Last 24 Hour Vital Signs Date Time Temp Pulse Resp B/P (MAP) Pulse Ox O2 Delivery O2 Flow Rate FiO2 03/25/19 21:00 Nasal Cannula 3.0 03/25/19 20:00 98.2 99 22 134/73 (93) 96 03/25/19 20:00 98 03/25/19 19:35 95 Nasal Cannula 3.0 32 03/25/19 19:35 83 18 95 Nasal Cannula 3.0 32 03/25/19 16:00 96 03/25/19 16:00 98.0 98 18 108/62 (77) 97 03/25/19 12:00 105 7/20/19 12:00 97.8 105 18 118/73 (88) 95 03/25/19 09:00 Nasal Cannula 3.0 03/25/19 08:00 101 03/25/19 08:00 97.8 94 18 130/82 (98) 95 03/25/19 06:40 74 18 96 Nasal Cannula 3.0 32 03/25/19 06:40 96 Nasal Cannula 3.0 32 03/25/19 04:20 82 03/25/19 00:00 93 03/25/19 00:00 98.0 85 18 125/68 (87) 95 Height (Feet): 5 Height (Inches): 10.00 Weight (Pounds): 170 Objective HEAD AND SHOWS: No JVD. LUNGS: Clear. CARDIOVASCULAR: Regular S1 and S2 with no gallop or murmur, tachycardic ABDOMEN: Soft. EXTREMITIES: No pitting edema. Microbiology Date/Time Source Procedure Growth Status 03/23/19 04:55 Sputum Gram Stain - Final Complete 03/23/19 04:55 Sputum Sputum Culture - Final Complete 03/22/19 22:55 Urine,Clean Catch Urine Culture - Final NO GROWTH AFTER 48 HOURS Complete Laboratory Tests Test 03/25/19 05:20 White Blood Count 11.4 K/UL (4.8-10.8) H Red Blood Count 5.42 M/UL (4.70-6.10) Hemoglobin 14.8 G/DL (14.2-18.0) Hematocrit 46.2 % (42.0-52.0) Mean Corpuscular Volume 85 FL (80-99) Mean Corpuscular Hemoglobin 27.2 PG (27.0-31.0) Mean Corpuscular Hemoglobin Concent 31.9 G/DL (32.0-36.0) L Red Cell Distribution Width 12.0 % (11.6-14.8) Platelet Count 326 K/UL (150-450) Mean Platelet Volume 6.9 FL (6.5-10.1) Neutrophils (%) (Auto) 72.5 % (45.0-75.0) Lymphocytes (%) (Auto) 12.7 % (20.0-45.0) L Monocytes (%) (Auto) 10.4 % (1.0-10.0) H Eosinophils (%) (Auto) 3.1 % (0.0-3.0) H Basophils (%) (Auto) 1.2 % (0.0-2.0) Sodium Level 139 MMOL/L (136-145) Potassium Level 4.2 MMOL/L (3.5-5.1) Chloride Level 107 MMOL/L (98-107) Carbon Dioxide Level 22 MMOL/L (21-32) Anion Gap 10 mmol/L (5-15) Blood Urea Nitrogen 33 mg/dL (7-18) H Creatinine 1.3 MG/DL (0.55-1.30) Estimat Glomerular Filtration Rate mL/min (>60) Glucose Level 100 MG/DL (74-106) Calcium Level 9.0 MG/DL (8.5-10.1) Current Medications Medications (Trade) Dose Ordered Sig/Amaya Route PRN Reason Start Time Stop Time Status Last Admin Dose Admin Acetaminophen (Tylenol) 650 mg Q4H PRN ORAL fever 03/23/19 21:00 04/21/19 20:59 Albuterol/ Ipratropium (Albuterol/ Ipratropium) 3 ml Q4H PRN HHN Shortness of Breath 03/23/19 21:00 03/27/19 20:59 Aspirin (Ecotrin) 81 mg DAILY ORAL 03/26/19 09:00 04/25/19 08:59 Ceftriaxone Sodium 1 gm/ Dextrose 55 ml @ 110 mls/hr Q24H IVPB 03/24/19 10:00 03/31/19 09:59 03/25/19 10:04 Cyanocobalamin (Vitamin B12) 1,000 mcg DAILY SUBQ 03/24/19 15:00 03/26/19 09:01 03/25/19 08:46 Dextrose (Dextrose 50%) 25 ml Q30M PRN IV Hypoglycemia 03/23/19 21:00 04/21/19 13:45 Dextrose (Dextrose 50%) 50 ml Q30M PRN IV hypoglycemia 03/23/19 21:00 04/21/19 13:59 Diazepam (Valium) 5 mg BEDTIME PRN ORAL For Anxiety 03/23/19 21:00 03/29/19 13:44 03/23/19 23:16 Docusate Sodium (Colace) 100 mg TID ORAL 03/24/19 09:00 04/22/19 17:59 03/25/19 17:08 Heparin Sodium (Porcine) (Heparin 5000 units/ml) 5,000 units EVERY 12 HOURS SUBQ 03/23/19 21:00 04/21/19 20:59 03/25/19 20:36 Insulin Aspart (NovoLOG) BEFORE MEALS AND HS SUBQ 03/23/19 21:00 04/21/19 16:29 03/25/19 17:07 Morphine Sulfate (Morphine Sulfate) 2 mg Q4H PRN IVP Moderate Pain (Pain Scale 4-6) 03/23/19 21:00 03/29/19 20:59 Nitroglycerin (Ntg) 0.4 mg Q5M PRN SL Prn Chest Pain 03/23/19 21:00 04/21/19 13:44 Ondansetron HCl (Zofran) 4 mg Q6H PRN IVP Nausea & Vomiting 03/23/19 21:00 04/22/19 20:59 Pantoprazole (Protonix) 40 mg DAILY ORAL 03/24/19 09:00 04/23/19 08:59 03/25/19 08:43 Polyethylene Glycol (Miralax) 17 gm DAILYPRN PRN ORAL Constipation 03/23/19 21:00 04/22/19 20:59 03/25/19 21:42 Sodium Chloride 1,000 ml @ 50 mls/hr Q20H IV 03/25/19 12:00 04/24/19 11:59 03/25/19 12:11 Solifenacin (Vesicare) 10 mg DAILY ORAL 03/24/19 09:00 04/22/19 08:59 03/25/19 08:43 Tamsulosin HCl (Flomax) 0.4 mg BID ORAL 03/24/19 09:00 04/21/19 20:59 03/25/19 17:09 Temazepam (Restoril) 15 mg HSPRN PRN ORAL Insomnia 03/23/19 21:00 03/30/19 20:59 Daly Sánchez M.D. Mar 25, 2019 21:51
[2019-03-26] VITALS: BP 126/73
[2019-03-26] MEDS ORDERED: Fleet's Mineral Oil Enema RECTAL PRN ×2 (01:45→18:00)
--- NOTE | 2019-03-26 01:45 | Consultation ---
DATE OF CONSULTATION: 03/25/2019 NOTE: POOR AUDIO INITIAL PSYCHIATRIC EVALUATION CONSULTING PHYSICIAN: Stephani Granger M.D. CHIEF COMPLAINT: " 02:14." HISTORY OF PRESENT ILLNESS: This is an 83-year-old male patient with weakness and dehydration. He also has MRSA, sepsis, gastritis, status post CVA, hypertension, also urinary tract infection and his medical complications that cause the patient to have altered mental status and high levels of anxiety and that is why, there was a daily psychiatric consultation for this patient. I saw and assessed this patient in his room today. He does endorse depression, anxiety with some mood lability. This patient has high levels of anxiety, depression, and due to his current medical illness causing [facility]. He endorses rule out depression and anxiety secondary to medical complications daily psychiatric treatment at this time. PAST MEDICAL HISTORY: He has history of CVA, diabetes, and hypertension. ALLERGIES: No known drug allergies. PSYCHOTROPIC MEDICATIONS: On admission, he states he takes Valium at bedtime. SUBSTANCE ABUSE HISTORY: He denies drug and alcohol use in the past. FAMILY PSYCHIATRIC HISTORY: Denies. PAIN ASSESSMENT: 0/10. DEVELOPMENTAL PROBLEMS: Denies. SOCIAL HISTORY: He lives in [facility]. Financially supported by [employer] and Medicare. PSYCHIATRIC HISTORY: He has history of major depressive disorder, rule out generalized anxiety disorder. STRENGTHS: He is motivated to get better and he has a place to live. WEAKNESSES: He is impulsive. He has minimal support system. MENTAL STATUS EXAMINATION: This is an 83-year-old male. His appearance is disheveled. He is agitated. He is calm and cooperative. His affect guarded and restricted. Intellect is poor because he does not know the current President or the last four Presidents. Mood depressed. Motor activity, psychomotor agitation. Attention span is poor because he cannot do serial sevens or spell world backwards. Orientation x2. He is oriented to person and place, not time and situation. Speech is low volume, slurred. Thought process, disorganized and illogical. Thought content, he has auditory hallucinations and paranoid delusions. delusion. His intellect is poor. He does not recognize to reduce mood disorder, judgment supportive. He is not clearly making clear medical . He denies suicidal or homicidal ideation. His short-term memory 3/3 word recall after 5 minutes delay with good short-term memory. Long-term memory is intact based on his knowledge of long-term events in his life such as the high school that he went to. . DIAGNOSES: 1. Major depressive disorder, mild, recurrent, rule out generalized anxiety disorder, there is no secondary diagnosis. 2. Medical: Status post CVA, hyperlipidemia, hypertension, gastritis, and MRSA. Psychosocial stressors, financial. Function impairment is severe. PLAN: Plan for this patient is to treat him with medication regimen consisting of Zoloft 25 mg daily in addition to that I am going to treat him with his Valium as needed. Provided him with 20 minutes of cognitive behavioral therapy to help him identify his automatic negative thoughts help him convert his negative thoughts to more positive thoughts to reduce depression, anxiety, and mood lability. Mild more adaptive behavioral pattern. Chart reviewed. Discussed with staff. Seen and assessed at bedside. Stephani Granger M.D. DR: ABBY JOB#: [id number] CC:
[2019-03-26 04:00] VITALS: BP 124/75
[2019-03-26] MEDS: NovoLOG Insulin Flexpen SUBQ SCH ×4 (05:56→21:00)
--- NOTE | 2019-03-26 07:15 | NUR ---
HAND-OFF: Report given to BRYAN LOPEZ.
[2019-03-26 07:22] LABS: BASOPHILS % (AUTO) 1.7 % (0.0-2.0); EOSINOPHILS % (AUTO) 3.4 % (0.0-3.0); HEMATOCRIT 46.2 % (42.0-52.0); HEMOGLOBIN 15.1 G/DL (14.2-18.0); MEAN CORPUSCULAR VOLUME 85 FL (80-99); MONOCYTES % (AUTO) 8.7 % (1.0-10.0); NEUTROPHILS % (AUTO) 71.3 % (45.0-75.0); PLATELET COUNT 306 K/UL (150-450); RED BLOOD COUNT 5.43 M/UL (4.70-6.10); RED CELL DISTRIBUTION WIDTH 11.8 % (11.6-14.8); WHITE BLOOD COUNT 10.8 K/UL (4.8-10.8)
[2019-03-26 07:32] LABS: ANION GAP 7 mmol/L (5-15); BLOOD UREA NITROGEN 32 mg/dL (7-18); CALCIUM 9.1 MG/DL (8.5-10.1); CARBON DIOXIDE 25 MMOL/L (21-32); CHLORIDE 109 MMOL/L (98-107); CREATININE 1.3 MG/DL (0.55-1.30); POTASSIUM 4.3 MMOL/L (3.5-5.1); SODIUM 141 MMOL/L (136-145)
--- NOTE | 2019-03-26 07:33 | NUR ---
NURSE NOTES: Received report from BRYAN Celaya. Patient in bed resting, no active s/s cardiac, respiratory distress noticed at this time. Patient on 3L oxygen via NC, AOx4, IV on right FA 22G, asymptomatic, patent, intact, IV fluid running at prescribed rate. Caregiver at the bedside. Bed in lowest position, side rails upx3, call light within reach, bed alarm on. Will continue to monitor.
[2019-03-26 08:00] VITALS: BP 146/80
--- NOTE | 2019-03-26 08:14 | Pulmonology Progress Note ---
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 fib, which possibly could cause stroke and was on Eliquis, which stopped due to anemia currently H&H stable consider restart Eliquis - per cardio discretion for now continue DVT prophylaxis with heparin and ASA swallow eval noted, diet as per ST recommendation with aspiration precaution PT continue empiric abx ID follows BCX negative preliminary, UCX negative SCX inadequate collection, need to be resubmitted leukocytosis trending down, no fevers BS management with SSI BP management IVF, creat trending down, decrease rate monitor renal parameters, lytes, correct electrolytes as needed, avoid nephrotoxic GI prophylaxis Pain management Bowel regimen; lactulose x 1 and enema, constipation resolved Supportive care pending transfer to ARU at [facility] case discussed and evaluated by supervising physician Subjective Allergies: Coded Allergies: No Known Allergies (Unverified , 01/04/19) Subjective no signs of resp distress no new weakness SR on monitor no CP, SOB constipation resolved Objective Last 24 Hour Vital Signs Date Time Temp Pulse Resp B/P (MAP) Pulse Ox O2 Delivery O2 Flow Rate FiO2 03/26/19 07:09 76 16 96 Nasal Cannula 3.0 32 03/26/19 07:09 96 Nasal Cannula 3.0 32 03/26/19 04:00 97.2 85 18 124/75 (91) 97 03/26/19 04:00 80 03/26/19 00:00 97.9 87 18 126/73 (90) 97 03/26/19 00:00 86 03/25/19 21:00 Nasal Cannula 3.0 03/25/19 20:00 98.2 99 22 134/73 (93) 96 03/25/19 20:00 98 03/25/19 19:35 95 Nasal Cannula 3.0 32 03/25/19 19:35 83 18 95 Nasal Cannula 3.0 32 03/25/19 16:00 96 03/25/19 16:00 98.0 98 18 108/62 (77) 97 03/25/19 12:00 105 03/25/19 12:00 97.8 105 18 118/73 (88) 95 03/25/19 09:00 Nasal Cannula 3.0 Intake and Output 03/25/19 03/26/19 18:59 06:59 Intake Total 720 ml 1140 ml Output Total 1000 ml 1300 ml Balance -280 ml -160 ml Intake Oral 720 ml 240 ml IV Total 900 ml Output Urine Total 1000 ml 1300 ml # Bowel Movements 1 Objective General Appearance: no acute distress, awake, alert, somewhat anxious male HEENT: normocephalic, atraumatic, anicteric, mucous membranes moist Respiratory/Chest: lungs clear, no respiratory distress, no accessory muscle use Cardiovascular: normal rate Abdomen: normal bowel sounds, soft, non tender, non distended Extremities: no edema, pedal pulses normal Neurologic/Psychiatric: abnormal gait, alert, oriented x 3, responsive, slurred speech, R hemiparesis Musculoskeletal: atrophy - BLE Laboratory Tests 03/26/19 05:15: White Blood Count 10.8, Red Blood Count 5.43, Hemoglobin 15.1, Hematocrit 46.2, Mean Corpuscular Volume 85, Mean Corpuscular Hemoglobin 27.7, Mean Corpuscular Hemoglobin Concent 32.6, Red Cell Distribution Width 11.8, Platelet Count 306, Mean Platelet Volume 6.6, Neutrophils (%) (Auto) 71.3, Lymphocytes (%) (Auto) 15.0L, Monocytes (%) (Auto) 8.7, Eosinophils (%) (Auto) 3.4H, Basophils (%) ( Auto) 1.7, Sodium Level 141, Potassium Level 4.3, Chloride Level 109H, Carbon Dioxide Level 25, Anion Gap 7, Blood Urea Nitrogen 32H, Creatinine 1.3, Estimat Glomerular Filtration Rate , Glucose Level 99, Calcium Level 9.1 Current Medications Medications (Trade) Dose Ordered Sig/Amaya Route PRN Reason Start Time Stop Time Status Last Admin Dose Admin Acetaminophen (Tylenol) 650 mg Q4H PRN ORAL fever 03/23/19 21:00 04/21/19 20:59 Albuterol/ Ipratropium (Albuterol/ Ipratropium) 3 ml Q4H PRN HHN Shortness of Breath 03/23/19 21:00 03/27/19 20:59 Aspirin (Ecotrin) 81 mg DAILY ORAL 03/26/19 09:00 04/25/19 08:59 Ceftriaxone Sodium 1 gm/ Dextrose 55 ml @ 110 mls/hr Q24H IVPB 03/24/19 10:00 03/31/19 09:59 03/25/19 10:04 Cyanocobalamin (Vitamin B12) 1,000 mcg DAILY SUBQ 03/24/19 15:00 03/26/19 09:01 03/25/19 08:46 Dextrose (Dextrose 50%) 25 ml Q30M PRN IV Hypoglycemia 03/23/19 21:00 04/21/19 13:45 Dextrose (Dextrose 50%) 50 ml Q30M PRN IV hypoglycemia 03/23/19 21:00 04/21/19 13:59 Diazepam (Valium) 5 mg BEDTIME PRN ORAL For Anxiety 03/23/19 21:00 03/29/19 13:44 03/26/19 01:51 Docusate Sodium (Colace) 100 mg TID ORAL 03/24/19 09:00 04/22/19 17:59 03/25/19 17:08 Heparin Sodium (Porcine) (Heparin 5000 units/ml) 5,000 units EVERY 12 HOURS SUBQ 03/23/19 21:00 04/21/19 20:59 03/25/19 20:36 Insulin Aspart (NovoLOG) BEFORE MEALS AND HS SUBQ 03/23/19 21:00 04/21/19 16:29 03/25/19 17:07 Mineral Oil (Fleet's Mineral Oil Enema) 133 ml DAILYPRN PRN RECTAL Constipation 03/26/19 01:45 04/25/19 01:44 03/26/19 05:59 Morphine Sulfate (Morphine Sulfate) 2 mg Q4H PRN IVP Moderate Pain (Pain Scale 4-6) 03/23/19 21:00 03/29/19 20:59 Nitroglycerin (Ntg) 0.4 mg Q5M PRN SL Prn Chest Pain 03/23/19 21:00 04/21/19 13:44 Ondansetron HCl (Zofran) 4 mg Q6H PRN IVP Nausea & Vomiting 03/23/19 21:00 04/22/19 20:59 Pantoprazole (Protonix) 40 mg DAILY ORAL 03/24/19 09:00 04/23/19 08:59 03/25/19 08:43 Polyethylene Glycol (Miralax) 17 gm DAILYPRN PRN ORAL Constipation 03/23/19 21:00 04/22/19 20:59 03/25/19 21:42 Sodium Chloride 1,000 ml @ 50 mls/hr Q20H IV 03/25/19 12:00 04/24/19 11:59 03/25/19 12:11 Solifenacin (Vesicare) 10 mg DAILY ORAL 03/24/19 09:00 04/22/19 08:59 03/25/19 08:43 Tamsulosin HCl (Flomax) 0.4 mg BID ORAL 03/24/19 09:00 04/21/19 20:59 03/25/19 17:09 Temazepam (Restoril) 15 mg HSPRN PRN ORAL Insomnia 03/23/19 21:00 03/30/19 20:59 Krystal Sherman RN FLIGHT Mar 26, 2019 08:14
[2019-03-26] MEDS: Vitamin B12 1000mcg/ml Inj SUBQ SCH (08:35)
[2019-03-26] MEDS: Tamsulosin 0.4mg cap ORAL SCH ×2 (08:36→17:09)
[2019-03-26] MEDS: Solifenacin 10mg tab ORAL SCH (08:36)
[2019-03-26] MEDS: Heparin 5000 units/ml inj SUBQ SCH ×2 (08:37→21:21)
[2019-03-26] MEDS: Docusate 100mg cap ORAL SCH ×3 (08:50→17:16)
[2019-03-26] MEDS ORDERED: Aspirin EC 81mg tab ORAL SCH (09:00)
--- NOTE | 2019-03-26 09:22 | General Progress Note ---
Assessment/Plan Problem List: (1) UTI (urinary tract infection) ICD Codes: N39.0 - Urinary tract infection, site not specified SNOMED: 15176961 (2) Hypertension ICD Codes: I10 - Essential (primary) hypertension SNOMED: 49792099 (3) Chronic constipation ICD Codes: K59.09 - Other constipation SNOMED: 521466106 (4) Weakness ICD Codes: R53.1 - Weakness SNOMED: 25789095 (5) Diabetes mellitus ICD Codes: E11.9 - Type 2 diabetes mellitus without complications SNOMED: 97320882 (6) Episode of generalized weakness ICD Codes: R53.1 - Weakness SNOMED: 71527230 Status: stable, progressing Assessment/Plan: pt diet abx cbc bmp am aru eval Subjective Constitutional: Reports: weakness Allergies: Coded Allergies: No Known Allergies (Unverified , 01/04/19) All Systems: reviewed and negative except above Subjective o2nc sl anxious in bed Objective Last 24 Hour Vital Signs Date Time Temp Pulse Resp B/P (MAP) Pulse Ox O2 Delivery O2 Flow Rate FiO2 03/26/19 07:09 76 16 96 Nasal Cannula 3.0 32 03/26/19 07:09 96 Nasal Cannula 3.0 32 03/26/19 04:00 97.2 85 18 124/75 (91) 97 03/26/19 04:00 80 03/26/19 00:00 97.9 87 18 126/73 (90) 97 03/26/19 00:00 86 03/25/19 21:00 Nasal Cannula 3.0 03/25/19 20:00 98.2 99 22 134/73 (93) 96 03/25/19 20:00 98 03/25/19 19:35 95 Nasal Cannula 3.0 32 03/25/19 19:35 83 18 95 Nasal Cannula 3.0 32 03/25/19 16:00 96 03/25/19 16:00 98.0 98 18 108/62 (77) 97 03/25/19 12:00 105 03/25/19 12:00 97.8 105 18 118/73 (88) 95 Intake and Output 03/25/19 03/26/19 18:59 06:59 Intake Total 720 ml 1140 ml Output Total 1000 ml 1300 ml Balance -280 ml -160 ml Intake Oral 720 ml 240 ml IV Total 900 ml Output Urine Total 1000 ml 1300 ml # Bowel Movements 1 Laboratory Tests 03/26/19 05:15: White Blood Count 10.8, Red Blood Count 5.43, Hemoglobin 15.1, Hematocrit 46.2, Mean Corpuscular Volume 85, Mean Corpuscular Hemoglobin 27.7, Mean Corpuscular Hemoglobin Concent 32.6, Red Cell Distribution Width 11.8, Platelet Count 306, Mean Platelet Volume 6.6, Neutrophils (%) (Auto) 71.3, Lymphocytes (%) (Auto) 15.0L, Monocytes (%) (Auto) 8.7, Eosinophils (%) (Auto) 3.4H, Basophils (%) ( Auto) 1.7, Sodium Level 141, Potassium Level 4.3, Chloride Level 109H, Carbon Dioxide Level 25, Anion Gap 7, Blood Urea Nitrogen 32H, Creatinine 1.3, Estimat Glomerular Filtration Rate , Glucose Level 99, Calcium Level 9.1 Height (Feet): 5 Height (Inches): 10.00 Weight (Pounds): 170 General Appearance: alert EENT: normal ENT inspection Neck: normal alignment Cardiovascular: normal peripheral pulses, normal rate, regular rhythm Respiratory/Chest: chest wall non-tender, lungs clear, normal breath sounds Abdomen: normal bowel sounds, non tender, soft Extremities: normal inspection Edema: no edema noted Arm (L), no edema noted Arm (R), no edema noted Leg (L), no edema noted Leg (R), no edema noted Pedal (L), no edema noted Pedal (R), no edema noted Generalized Neurologic: responsive, motor weakness Skin: normal pigmentation, warm/dry Chris Tipton DO Mar 26, 2019 09:22
[2019-03-26] MEDS: cefTRIAXone 1 GM in D5W 55 ML IVPB SCH (10:52)
--- NOTE | 2019-03-26 11:24 | NUR ---
NURSE NOTES: Patient's POA , Gabriela, at the bedside, requesting to change code status from Full code to DNR/DNI. Gabriela and patient discussed about code status, signed POLST. Dr. Tipton made aware patient and POA requesting DNR/DNI, per Dr. Tipton okay to change code status if POA and patient okay. Order noted, entered, carried out.
[2019-03-26 12:00] VITALS: BP 120/69
--- NOTE | 2019-03-26 12:00 | NUR ---
NURSE NOTES: Patient's wallet including debit, credit, romero placed in safe, CN made aware, food service supervisor made aware.
--- NOTE | 2019-03-26 12:27 | Cardiac Electrophysiology PN ---
Assessment/Plan Assessment/Plan 1. Possible atrial fibrillation causing stroke. Was on Eliquis 5 mg b.i.d. that is changed to heparin subcutaneous. EKG and tele showed SR and echocardiogram showed Nl EF 2. HTN , currently off antihypertensives. 3. Diabetes. 4. CVA with hemiplegia. MRI Impression: Positive for acute versus subacute lacunar infarct of the left luther radiata extending into the left basal ganglia. Presence of a fairly well-defined abnormality on recent CT scan indicates that this is subacute 5. Renal failure with creatinine of 1.5. 6. Anemia. Eliquis has been held. Transfer to [facility] pending [facility] Subjective Subjective Alert in NAD. No CP or SOB. Objective Last 24 Hour Vital Signs Date Time Temp Pulse Resp B/P (MAP) Pulse Ox O2 Delivery O2 Flow Rate FiO2 03/26/19 09:00 Nasal Cannula 3.0 03/26/19 08:00 98.4 90 24 146/80 (102) 94 03/26/19 07:09 76 16 96 Nasal Cannula 3.0 32 03/26/19 07:09 96 Nasal Cannula 3.0 32 03/26/19 04:00 97.2 85 18 124/75 (91) 97 03/26/19 04:00 80 03/26/19 00:00 97.9 87 18 126/73 (90) 97 03/26/19 00:00 86 03/25/19 21:00 Nasal Cannula 3.0 03/25/19 20:00 98.2 99 22 134/73 (93) 96 03/25/19 20:00 98 03/25/19 19:35 95 Nasal Cannula 3.0 32 03/25/19 19:35 83 18 95 Nasal Cannula 3.0 32 03/25/19 16:00 96 03/25/19 16:00 98.0 98 18 108/62 (77) 97 Intake and Output 03/25/19 03/26/19 19:00 07:00 Intake Total 1070 ml 790 ml Output Total 1000 ml 1300 ml Balance 70 ml -510 ml Intake Oral 720 ml 240 ml IV Total 350 ml 550 ml Output Urine Total 1000 ml 1300 ml # Bowel Movements 1 Laboratory Tests Test 03/26/19 05:15 White Blood Count 10.8 K/UL (4.8-10.8) Red Blood Count 5.43 M/UL (4.70-6.10) Hemoglobin 15.1 G/DL (14.2-18.0) Hematocrit 46.2 % (42.0-52.0) Mean Corpuscular Volume 85 FL (80-99) Mean Corpuscular Hemoglobin 27.7 PG (27.0-31.0) Mean Corpuscular Hemoglobin Concent 32.6 G/DL (32.0-36.0) Red Cell Distribution Width 11.8 % (11.6-14.8) Platelet Count 306 K/UL (150-450) Mean Platelet Volume 6.6 FL (6.5-10.1) Neutrophils (%) (Auto) 71.3 % (45.0-75.0) Lymphocytes (%) (Auto) 15.0 % (20.0-45.0) L Monocytes (%) (Auto) 8.7 % (1.0-10.0) Eosinophils (%) (Auto) 3.4 % (0.0-3.0) H Basophils (%) (Auto) 1.7 % (0.0-2.0) Sodium Level 141 MMOL/L (136-145) Potassium Level 4.3 MMOL/L (3.5-5.1) Chloride Level 109 MMOL/L (98-107) H Carbon Dioxide Level 25 MMOL/L (21-32) Anion Gap 7 mmol/L (5-15) Blood Urea Nitrogen 32 mg/dL (7-18) H Creatinine 1.3 MG/DL (0.55-1.30) Estimat Glomerular Filtration Rate mL/min (>60) Glucose Level 99 MG/DL (74-106) Calcium Level 9.1 MG/DL (8.5-10.1) Objective HEAD AND SHOWS: No JVD. LUNGS: Clear. CARDIOVASCULAR: Regular S1 and S2 with no gallop or murmur, tachycardic ABDOMEN: Soft. EXTREMITIES: No pitting edema. Sabino Goncalves MD Mar 26, 2019 12:27
--- NOTE | 2019-03-26 14:31 | Neurology Progress Note ---
Interim History Interim History Interim History Mr. Pfeiffer feels better. He has increased movements on his right side today. He right sided ptosis is much better. The sensations are normal on the right. He is able to communicate fairly well. He denies any new neurologic problems. Review of Systems Neuro Review of Systems Benign. Objective Physical Exam Last Vital Signs Date Time Temp Pulse Resp B/P (MAP) Pulse Ox O2 Delivery O2 Flow Rate FiO2 03/26/19 12:00 97.6 85 20 120/69 (86) 93 03/26/19 09:00 Nasal Cannula 3.0 03/26/19 07:09 32 Laboratory Tests Test 03/26/19 05:15 White Blood Count 10.8 K/UL (4.8-10.8) Red Blood Count 5.43 M/UL (4.70-6.10) Hemoglobin 15.1 G/DL (14.2-18.0) Hematocrit 46.2 % (42.0-52.0) Mean Corpuscular Volume 85 FL (80-99) Mean Corpuscular Hemoglobin 27.7 PG (27.0-31.0) Mean Corpuscular Hemoglobin Concent 32.6 G/DL (32.0-36.0) Red Cell Distribution Width 11.8 % (11.6-14.8) Platelet Count 306 K/UL (150-450) Mean Platelet Volume 6.6 FL (6.5-10.1) Neutrophils (%) (Auto) 71.3 % (45.0-75.0) Lymphocytes (%) (Auto) 15.0 % (20.0-45.0) L Monocytes (%) (Auto) 8.7 % (1.0-10.0) Eosinophils (%) (Auto) 3.4 % (0.0-3.0) H Basophils (%) (Auto) 1.7 % (0.0-2.0) Sodium Level 141 MMOL/L (136-145) Potassium Level 4.3 MMOL/L (3.5-5.1) Chloride Level 109 MMOL/L (98-107) H Carbon Dioxide Level 25 MMOL/L (21-32) Anion Gap 7 mmol/L (5-15) Blood Urea Nitrogen 32 mg/dL (7-18) H Creatinine 1.3 MG/DL (0.55-1.30) Estimat Glomerular Filtration Rate mL/min (>60) Glucose Level 99 MG/DL (74-106) Calcium Level 9.1 MG/DL (8.5-10.1) Neurologic Exam Objective PHYSICAL EXAMINATION: GENERAL: He is a well-developed, well-nourished, pleasant gentleman, lying in bed, in no acute distress. HEAD: Normocephalic and atraumatic. EENT: Examination benign. NECK: No neck rigidity was observed. NEUROLOGICAL EXAMINATION: MENTAL STATUS EXAMINATION: He was awake and alert. He was oriented to person, place, and time. He was able to recall 3/3 words immediately, but could remember them in 1 minute and 3 minutes. He was able to remember Presidents Trump and Obama spontaneously, but needed hints to remember through [employer]. His mathematical skills were good. His visuospatial function was minimally impaired. SPEECH: He had no dysarthria. LANGUAGE: He had an anomia for low-frequency words. CRANIAL NERVE EXAMINATION: II: The visual quintanilla were intact. He however had poor vision in the right eye in addition. III, IV & : The external ocular movements were full. The pupils 3 mm in diameter and reactive sluggishly to light. He had (mild 3 mm of) ptosis on the right side. V: He had normal facial sensations and the temporales, masseters, and pterygoids functioned normally. VII: He had a right seventh central facial paresis. VIII: He was able to hear well bilaterally and had no nystagmus. IX: The palate moved symmetrically on phonation. X: He had no hoarseness of voice. XI: The sternocleidomastoids and trapezii functioned normally. XII: The tongue was in the midline without any fasciculations or atrophy. MOTOR SYSTEM: The tone was flaccid in the right upper extremity and diminished in the right lower extremity. Examination of muscle mass revealed no focal wasting. Examination of power revealed G 5/5 power on the left side. On the right side, he had G 0/5 power except for G 3/5 power in the finger flexors, finger extensors and quadriceps, G 2/5 in the biceps, ankle dorsiflexors and ankle plantar flexors. SENSORY EXAMINATION: He had intact sensations to pinprick, light touch, and graphesthesia. COORDINATION: He performed well on [id number] and [id number]-[id number] testing on the left side, but could not perform on the right side. REFLEXES: 2++ on the right and 1+ on the left at the biceps, triceps, brachioradialis, knees, 0 at both ankles. The plantar response was extensor on the right and flexor on the left. STANCE & GAIT: Could not be tested. Impression/Recommendations Diagnostic Impression 1. Mr. Kemar Pfeiffer is an 83-year-old right-handed, gentleman, with a long history of hypertension, diabetes mellitus, benign prostatic hypertrophy , and gait problems related to spinal stenosis who on 03/11/2019 noticed some problems with walking because his right leg would not carry him too well. On , he became significantly more weak on the right side with involvement of his face , upper and lower extremities. He was taken to another hospital, evaluated there, and was told that he had a stroke. He was kept there for about a week and then sent back to his shelter where he started to feel palpitations and as a result of that was hospitalized at [facility] on 2018. 2. He feels better. He has increased movements on his right side today. He right sided ptosis is much better. The sensations are normal on the right. He is able to communicate fairly well. He denies any new neurologic problems. 3. On neurological examination, at this time, he is fully oriented. He has problems with recent and remote memory, problems with visuospatial function, and a mild anomia. The right-sided ptosis is significantly better. He has poor vision in the right eye. He in addition has a mild right seventh central facial paresis, right hemiparesis which is definitely better today, brisker reflexes on the right side compared to the left, and an extensor plantar response on the right side. 4. Laboratory data on my initial evaluation revealed that his WBC count was elevated to 14,800, his hemoglobin was at 16.0. His chemistry panel revealed a BUN elevated at 38 with a creatinine of 1.5. His glucose was high at 128. His proBNP was elevated at 641. His albumin was low at 2.5. His urinalysis revealed 1+ leukocyte esterase, too numerous to count red blood cells, and 0-2 white blood cells per high-power field with a moderate amount of bacteria in the urine. 5. Further laboratory tests have revealed a normal lipid panel but a low Vitamin B12 level at 362. The ammonia is also minimally elevated at 37. 6. The CT scan of the brain without contrast revealed atrophy, deep white matter changes, and a recent deep white matter infarct involving the left luther radiata. 7. The MRI of the brain done on 03/24/19 revealed recent infarcts in the left luther radiata and the right parietal deep white matter, and multiple older inrarcts in multiple vacular territories. 8. The patient's history, neurological examination, laboratory data, and imaging studies are most consistent with a recent left luther radiata infarct leading to severe right hemiparesis. The most likely etiology for the patient' s cerebrovascular disease is hypertensive/diabetic cerebrovascular disease. The patient has also been noted to have atrial fibrillation in the past and was on Eliquis which has recently been stopped. The cardiac arrhythmia may may also be responsible for his multiple strokes. Recommendations 1. Continue present management. 2. Treatment of high blood pressure with a goal of < 120/80 at all times in the near future. 3. Strict blood sugar control with the name of hemoglobin A1c <6%. 4. Continue ASA 81 mg q day and restart anticoagulation. 5. Await Carotid Duplex. 6. Treatment of cardiac arrhythmia per Dr. Goncalves. 7. Rehabilitate the patient with the help of physical, occupational, and speech and language therapy. 8. Agree with acute rehab. Huan Estrada M.D., M.S.P.H. Huan Estrada MD Mar 26, 2019 14:31
--- NOTE | 2019-03-26 14:38 | NUR ---
NURSE NOTES: FRANCESCO Sherman made aware patient requesting for chopped diet from reg texture and made aware per ST, continue current diet [facility] med reg texture. Per FRANCESCO Sherman, change to soft chopped diet. Order noted, entered, carried out.
--- NOTE | 2019-03-26 15:26 | Diagnostic Imaging Report ---
APPROVED REPORT CPT Code: 07928 Vascular Symptoms Comments: CVA. CAROTID (BILATERAL) - Imaging reveals no significant plaque within the right and left extracranial carotid arteries. The Doppler spectral flow analysis is within normal limits throughout the extracranial carotid arteries bilaterally. VERTEBRAL- The vertebral arteries are within normal limits.
--- NOTE | 2019-03-26 15:40 | NUR ---
NURSE NOTES: Called pharmacy for denture adhesive per Dr. Tipton. Per pharmacist, do not have denture adhesive. Called central supply, does not molded goods spot picker. Will continue to follow up.
[2019-03-26 16:00] VITALS: BP 123/69
--- NOTE | 2019-03-26 16:59 | Progress Note ---
DATE: 03/26/2019 SUBJECTIVE: This is an 83-year-old male patient, who has MRSA, gastritis, CVA, hypertension, urinary tract infection, and weakness. He has altered mental status and confusion and decline in cognition below his baseline with high levels of anxiety due to his medical illness. DIAGNOSIS: Major depressive disorder, mild, recurrent, without psychotic features. PLAN: Continue treatment with medications to help reduce anxiety such as Zoloft 25 mg a day. Provided him with 20 minutes of cognitive behavioral therapy to help him identify his automatic negative thoughts, help him convert those negative thoughts to more positive thoughts to reduce depression, anxiety, and mood lability. Chart reviewed. Discussed with staff. Seen and assessed in his room. Stephani Granger M.D. DR: MADELEINE JOB#: [id number] CC:
--- NOTE | 2019-03-26 17:25 | Nephrology Progress Note ---
Assessment/Plan Problem List: (1) Renal failure (ARF), acute on chronic (2) Dehydration (3) UTI (urinary tract infection) (4) Hypertension Assessment Renal failure- mainly dehydration h/o anemia GERD CVA w/ R side deficit DM2 UTI Plan Hydrate- Antibiotics Monitor renal parameters avoid nephrotoxics Subjective ROS Limited/Unobtainable: No Constitutional: Reports: malaise Objective Objective Last 24 Hour Vital Signs Date Time Temp Pulse Resp B/P (MAP) Pulse Ox O2 Delivery O2 Flow Rate FiO2 03/26/19 16:00 98.0 84 20 123/69 (87) 95 03/26/19 16:00 77 03/26/19 12:00 97.6 85 20 120/69 (86) 93 03/26/19 12:00 86 03/26/19 09:00 Nasal Cannula 3.0 03/26/19 08:00 98.4 90 24 146/80 (102) 94 03/26/19 08:00 82 03/26/19 07:09 76 16 96 Nasal Cannula 3.0 32 03/26/19 07:09 96 Nasal Cannula 3.0 32 03/26/19 04:00 97.2 85 18 124/75 (91) 97 03/26/19 04:00 80 03/26/19 00:00 97.9 87 18 126/73 (90) 97 03/26/19 00:00 86 03/25/19 21:00 Nasal Cannula 3.0 03/25/19 20:00 98.2 99 22 134/73 (93) 96 03/25/19 20:00 98 03/25/19 19:35 95 Nasal Cannula 3.0 32 03/25/19 19:35 83 18 95 Nasal Cannula 3.0 32 Intake and Output 03/25/19 03/26/19 19:00 07:00 Intake Total 1070 ml 790 ml Output Total 1000 ml 1300 ml Balance 70 ml -510 ml Intake Oral 720 ml 240 ml IV Total 350 ml 550 ml Output Urine Total 1000 ml 1300 ml # Bowel Movements 1 Laboratory Tests 03/26/19 05:15: White Blood Count 10.8, Red Blood Count 5.43, Hemoglobin 15.1, Hematocrit 46.2, Mean Corpuscular Volume 85, Mean Corpuscular Hemoglobin 27.7, Mean Corpuscular Hemoglobin Concent 32.6, Red Cell Distribution Width 11.8, Platelet Count 306, Mean Platelet Volume 6.6, Neutrophils (%) (Auto) 71.3, Lymphocytes (%) (Auto) 15.0L, Monocytes (%) (Auto) 8.7, Eosinophils (%) (Auto) 3.4H, Basophils (%) ( Auto) 1.7, Sodium Level 141, Potassium Level 4.3, Chloride Level 109H, Carbon Dioxide Level 25, Anion Gap 7, Blood Urea Nitrogen 32H, Creatinine 1.3, Estimat Glomerular Filtration Rate , Glucose Level 99, Calcium Level 9.1 Height (Feet): 5 Height (Inches): 10.00 Weight (Pounds): 170 General Appearance: no apparent distress Objective no change Devonte Zuniga MD Mar 26, 2019 17:25
--- NOTE | 2019-03-26 17:54 | NUR ---
TRANSFER TO FLOOR: Patient transferred to , per FRANCESCO Sherman. Report given to BRYAN Salinas. Belongings and medications given to BRYAN Salinas. Family and or S/O informed of transfer. Endorse patient's wallet placed in safe, need of MD's signature on POLST.
[2019-03-26] MEDS ORDERED: Miralax 17gm pkt ORAL PRN (18:00)
[2019-03-26] MEDS ORDERED: Albuterol/Ipratropium 3ml neb HHN PRN (18:00)
[2019-03-26] MEDS ORDERED: Morphine Sulfate 2mg/ml Inj(IV/IM USE ONLY) IVP PRN (18:00)
[2019-03-26] MEDS ORDERED: Nitroglycerin Subl 0.4mg tab SL PRN (18:00)
[2019-03-26 20:00] VITALS: BP 135/76
--- NOTE | 2019-03-26 20:00 | NUR ---
NURSE NOTES: RECIEVED PT. AWAKE AND ALERT NO S/S OF DISTRESS ,NO COMPLAINT OF PAIN NOTED @ THIS TIME.REPOSITIONED FOR COMFORT.NEEDS ATTENDED.
--- NOTE | 2019-03-26 20:05 | Consultation ---
History of Present Illness General Reason for Hospitalization: Generalized Weakness Present Illness HPI This is a very pleasant 83-year-old male with history of a recent stroke leaving him with deficit on the right side upper extremity and lower extremity who presented with generalized weakness, shortness of breath, feeling unwell. During admission patient has been bedbound and states that he is limited because of his recent stroke and limited mobility and was noted to be high risk and potentially developing a decubitus ulcer. Surgery was called to evaluate and assist with care and management. Patient seen, patient Charles, chart reviewed. Patient states he is well but does wish to have better health and hopefully some improvement in his deficits. Allergies: Coded Allergies: No Known Allergies (Unverified , 01/04/19) Medication History Scheduled Apixaban (Eliquis), 5 MG PO BID, (Reported) Bisacodyl (Biscolax), 10 MG RC PRN, (Reported) Docusate Sodium* (Colace*), 100 MG ORAL DAILY, (Reported) Dutasteride (Avodart), 0.5 MG ORAL DAILY, (Reported) Dutasteride (Avodart), 0.5 MG ORAL DAILY, (Reported) Ibuprofen* (Motrin*), 600 MG ORAL FOUR TIMES A DAY, (Reported) Magnesium Hydroxide* (Milk Of Magnesia*), 30 ML ORAL PRN, (Reported) Metformin Hcl* (Metformin Hcl*), 500 MG ORAL DAILY, (Reported) Multivitamin With Minerals (Multivitamins With Minerals*), 1 TAB ORAL DAILY, ( Reported) Pantoprazole* (Pantoprazole*), 40 MG ORAL DAILY, (Reported) Polyethylene Glycol 3350* (Miralax*), 17 GM ORAL DAILY, (Reported) Solifenacin Succinate (Vesicare*), 10 MG ORAL DAILY, (Reported) Tamsulosin Hcl (Tamsulosin Hcl*), 0.4 MG ORAL BEDTIME, (Reported) [Linzess 72 Mcg ], 290 MCG PO DAILY, (Reported) Scheduled PRN Diazepam* (Valium*), 5 MG ORAL BEDTIME PRN for For Anxiety, (Reported) Glucagon HCl (Glucagon HCl), 1 UNIT IM PRN PRN for Hypoglycemia, (Reported) Ibuprofen* (Motrin*), 600 MG ORAL Q4HR PRN for For Pain, (Reported) Na Phos,M-B/Na Phos,Di-Ba* (Fleet Enema*), 133 ML RECTAL EVERY OTHER DAY PRN for Constipation, (Reported) Patient History History Provided By: Patient, Medical Record, PMD Healthcare decision maker N Resuscitation status Full Code Advanced Directive on File No Past Medical/Surgical History Past Medical/Surgical History: (1) MRSA (methicillin resistant Staphylococcus aureus) infection (2) MRSA pyemia (3) Incontinence (4) Gastritis (5) Multiple polyps of sigmoid colon (6) Diabetes mellitus (7) Sepsis due to urinary tract infection (8) Episode of generalized weakness (9) Weakness (10) UTI (urinary tract infection) (11) Hypertension (12) Chronic constipation (13) Dehydration (14) Renal failure (ARF), acute on chronic (15) Cerebrovascular accident (CVA) Review of Systems Review of Symptoms General ROS: no weight loss or fever Psychological ROS: no depression or mood changes, no memory loss Ophthalmic ROS: no visual changes or eye irritation ENT ROS: no nasal congestion, hearing loss, dizziness Allergy and Immunology ROS: no allergic symptoms or urticaria Hematological and Lymphatic ROS: no swollen glands, unusual bleeding or bruising Endocrine ROS: no polyuria, polydipsia, weight changes, temperature intolerance Respiratory ROS: no cough, shortness of breath, or wheezing Cardiovascular ROS: no chest pain or dyspnea on exertion Gastrointestinal ROS: denies abdominal pain, no bright red blood in stool. Musculoskeletal ROS: no myalgias or arthralgias Neurological ROS: no TIA or stroke symptoms Dermatological ROS: no new or changing skin lesions, rashes or pruritis Physical Exam Physical Exam General appearance: alert, cooperative, no distress, appears stated age Head: Normocephalic, without obvious abnormality, atraumatic Eyes: conjunctivae/corneas clear. PERRL, EOM's intact. Fundi benign Throat: Lips, mucosa, and tongue normal. Teeth and gums normal Neck: supple, symmetrical, trachea midline, no adenopathy, thyroid: not enlarged, symmetric, no tenderness/mass/nodules, no carotid bruit and no JVD Lungs: clear to auscultation bilaterally Heart: regular rate and rhythm, S1, S2 normal, no murmur, click, rub or gallop Abdomen: soft, non-tender. Bowel sounds normal. No masses, no organomegaly Extremities: extremities normal, atraumatic, no cyanosis or edema Pulses: 2+ and symmetric Skin: Skin color, texture, turgor normal. No rashes or lesions Neurologic: Grossly normal Last 24 Hour Vital Signs Date Time Temp Pulse Resp B/P (MAP) Pulse Ox O2 Delivery O2 Flow Rate FiO2 03/26/19 19:40 95 Nasal Cannula 3.0 32 03/26/19 19:40 84 16 95 Nasal Cannula 3.0 32 03/26/19 16:00 98.0 84 20 123/69 (87) 95 03/26/19 16:00 77 03/26/19 12:00 97.6 85 20 120/69 (86) 93 03/26/19 12:00 86 03/26/19 09:00 Nasal Cannula 3.0 03/26/19 08:00 98.4 90 24 146/80 (102) 94 03/26/19 08:00 82 03/26/19 07:09 76 16 96 Nasal Cannula 3.0 32 03/26/19 07:09 96 Nasal Cannula 3.0 32 03/26/19 04:00 97.2 85 18 124/75 (91) 97 03/26/19 04:00 80 03/26/19 00:00 97.9 87 18 126/73 (90) 97 03/26/19 00:00 86 03/25/19 21:00 Nasal Cannula 3.0 Intake and Output 03/25/19 03/26/19 19:00 07:00 Intake Total 1070 ml 790 ml Output Total 1000 ml 1300 ml Balance 70 ml -510 ml Intake Oral 720 ml 240 ml IV Total 350 ml 550 ml Output Urine Total 1000 ml 1300 ml # Bowel Movements 1 Laboratory Tests Test 03/26/19 05:15 White Blood Count 10.8 K/UL (4.8-10.8) Red Blood Count 5.43 M/UL (4.70-6.10) Hemoglobin 15.1 G/DL (14.2-18.0) Hematocrit 46.2 % (42.0-52.0) Mean Corpuscular Volume 85 FL (80-99) Mean Corpuscular Hemoglobin 27.7 PG (27.0-31.0) Mean Corpuscular Hemoglobin Concent 32.6 G/DL (32.0-36.0) Red Cell Distribution Width 11.8 % (11.6-14.8) Platelet Count 306 K/UL (150-450) Mean Platelet Volume 6.6 FL (6.5-10.1) Neutrophils (%) (Auto) 71.3 % (45.0-75.0) Lymphocytes (%) (Auto) 15.0 % (20.0-45.0) L Monocytes (%) (Auto) 8.7 % (1.0-10.0) Eosinophils (%) (Auto) 3.4 % (0.0-3.0) H Basophils (%) (Auto) 1.7 % (0.0-2.0) Sodium Level 141 MMOL/L (136-145) Potassium Level 4.3 MMOL/L (3.5-5.1) Chloride Level 109 MMOL/L (98-107) H Carbon Dioxide Level 25 MMOL/L (21-32) Anion Gap 7 mmol/L (5-15) Blood Urea Nitrogen 32 mg/dL (7-18) H Creatinine 1.3 MG/DL (0.55-1.30) Estimat Glomerular Filtration Rate mL/min (>60) Glucose Level 99 MG/DL (74-106) Calcium Level 9.1 MG/DL (8.5-10.1) Height (Feet): 5 Height (Inches): 10.00 Weight (Pounds): 170 Medications Current Medications Medications (Trade) Dose Ordered Sig/Amaya Route PRN Reason Start Time Stop Time Status Last Admin Dose Admin Acetaminophen (Tylenol) 650 mg Q4H PRN ORAL fever 03/26/19 18:00 04/21/19 17:59 Albuterol/ Ipratropium (Albuterol/ Ipratropium) 3 ml Q4H PRN HHN Shortness of Breath 03/26/19 18:00 03/27/19 17:59 Aspirin (Ecotrin) 81 mg DAILY ORAL 03/27/19 09:00 04/25/19 08:59 Ceftriaxone Sodium 1 gm/ Dextrose 55 ml @ 110 mls/hr Q24H IVPB 03/27/19 10:00 03/31/19 09:59 Dextrose (Dextrose 50%) 25 ml Q30M PRN IV Hypoglycemia 03/26/19 18:00 04/21/19 13:45 Dextrose (Dextrose 50%) 50 ml Q30M PRN IV hypoglycemia 03/26/19 18:00 04/21/19 13:59 Diazepam (Valium) 5 mg BEDTIME PRN ORAL For Anxiety 03/26/19 21:00 03/29/19 13:44 Docusate Sodium (Colace) 100 mg TID ORAL 03/27/19 09:00 04/26/19 08:59 Heparin Sodium (Porcine) (Heparin 5000 units/ml) 5,000 units EVERY 12 HOURS SUBQ 03/26/19 21:00 04/21/19 20:59 Insulin Aspart (NovoLOG) BEFORE MEALS AND HS SUBQ 03/26/19 21:00 04/21/19 16:29 Mineral Oil (Fleet's Mineral Oil Enema) 133 ml DAILYPRN PRN RECTAL Constipation 03/26/19 18:00 04/25/19 17:59 Morphine Sulfate (Morphine Sulfate) 2 mg Q4H PRN IVP Moderate Pain (Pain Scale 4-6) 03/26/19 18:00 03/29/19 17:59 Nitroglycerin (Ntg) 0.4 mg Q5M PRN SL Prn Chest Pain 03/26/19 18:00 04/21/19 13:44 Ondansetron HCl (Zofran) 4 mg Q6H PRN IVP Nausea & Vomiting 03/26/19 18:00 04/22/19 17:59 Pantoprazole (Protonix) 40 mg DAILY ORAL 03/27/19 09:00 04/23/19 08:59 Polyethylene Glycol (Miralax) 17 gm DAILYPRN PRN ORAL Constipation 03/26/19 18:00 04/22/19 17:59 Sodium Chloride 1,000 ml @ 50 mls/hr Q20H IV 03/26/19 18:00 04/24/19 11:59 03/26/19 18:00 Solifenacin (Vesicare) 10 mg DAILY ORAL 03/27/19 09:00 04/22/19 08:59 Tamsulosin HCl (Flomax) 0.4 mg BID ORAL 03/27/19 09:00 04/26/19 08:59 Temazepam (Restoril) 15 mg HSPRN PRN ORAL Insomnia 03/26/19 21:00 03/30/19 20:59 Assessment/Plan Problem List: (1) Diabetes mellitus ICD Codes: E11.9 - Type 2 diabetes mellitus without complications SNOMED: 94803148 (2) Sepsis due to urinary tract infection ICD Codes: A41.9 - Sepsis, unspecified organism; N39.0 - Urinary tract infection, site not specified SNOMED: 884940413 (3) Episode of generalized weakness ICD Codes: R53.1 - Weakness SNOMED: 94480594 (4) Weakness ICD Codes: R53.1 - Weakness SNOMED: 24272860 (5) UTI (urinary tract infection) ICD Codes: N39.0 - Urinary tract infection, site not specified SNOMED: 69800296 (6) Hypertension ICD Codes: I10 - Essential (primary) hypertension SNOMED: 31592622 (7) Chronic constipation ICD Codes: K59.09 - Other constipation SNOMED: 269897971 (8) Dehydration ICD Codes: E86.0 - Dehydration SNOMED: 62308883 (9) Renal failure (ARF), acute on chronic ICD Codes: N17.9 - Acute kidney failure, unspecified; N18.9 - Chronic kidney disease, unspecified SNOMED: 649565411 (10) Cerebrovascular accident (CVA) ICD Codes: I63.9 - Cerebral infarction, unspecified SNOMED: 388850734 (11) Gastritis ICD Codes: K29.70 - Gastritis, unspecified, without bleeding SNOMED: 7166710 (12) Incontinence ICD Codes: R32 - Unspecified urinary incontinence SNOMED: 04601429 (13) MRSA (methicillin resistant Staphylococcus aureus) infection ICD Codes: A49.02 - Methicillin resistant Staphylococcus aureus infection, unspecified site SNOMED: 169211972 (14) MRSA pyemia ICD Codes: A41.02 - Sepsis due to Methicillin resistant Staphylococcus aureus SNOMED: 414370618 (15) Multiple polyps of sigmoid colon ICD Codes: D12.5 - Benign neoplasm of sigmoid colon SNOMED: 579653413 (16) Decubitus skin ulcer Assessment & Plan: Pt presented on admission with non-blanchable erythema sacrum (L)3cm x (W)4cm. Tender when minimally palpated. Scrotal area is red. Non-blanchable erythema with fluctuance noted to L heel.Pt denied tenderness when minimally palpated. Non-blanchable erythema without fluctuance R heel. Non-tender when minimally palpated. Discussed with pt skin breakdown noted at present and pt was educated on wound prevention. Instructed pt to frequently reposition self in bed. Instructed pt on using side rails to shift weight. Instructed to avoid sliding against bed linens but to off-lift buttocks when repositioning.Pt also instructed on keeping heels floated off bed with pillows. Patient at high risk for developing worsening decubitus given recent deficit. he states difficult to move and reposition but will continue to try will have physical therapy work with patient Tx.Plan: Apply Moisture Barrier Paste to scrotum with each perineal care. Apply Moisture Barrier Paste to sacrum. Cover with Optifoam drsg. Change every 3 days and prn. Apply Cavilon Skin Barrier to both heels. Cover each heel with Optifoam drsg. Change every 7 days and prn. Assist with repositioning at least every 2hours or as tolerated. Off-load heels with pillow. ICD Codes: L89.90 - Pressure ulcer of unspecified site, unspecified stage SNOMED: 297395065 Guru France Mar 26, 2019 20:05
[2019-03-27] VITALS: BP 112/62
[2019-03-27 04:00] VITALS: BP 118/70
[2019-03-27] MEDS: NovoLOG Insulin Flexpen SUBQ SCH ×4 (06:30→21:12)
[2019-03-27 06:36] LABS: BASOPHILS % (AUTO) 1.5 % (0.0-2.0); EOSINOPHILS % (AUTO) 3.2 % (0.0-3.0); HEMATOCRIT 48.2 % (42.0-52.0); HEMOGLOBIN 15.3 G/DL (14.2-18.0); LYMPHOCYTES % (AUTO) 12.2 % (20.0-45.0); MEAN CORPUSCULAR VOLUME 86 FL (80-99); MONOCYTES % (AUTO) 9.9 % (1.0-10.0); NEUTROPHILS % (AUTO) 73.1 % (45.0-75.0); PLATELET COUNT 329 K/UL (150-450); RED BLOOD COUNT 5.61 M/UL (4.70-6.10); RED CELL DISTRIBUTION WIDTH 12.2 % (11.6-14.8); WHITE BLOOD COUNT 10.5 K/UL (4.8-10.8)
[2019-03-27 06:54] LABS: ANION GAP 8 mmol/L (5-15); BLOOD UREA NITROGEN 26 mg/dL (7-18); CALCIUM 9.2 MG/DL (8.5-10.1); CARBON DIOXIDE 24 MMOL/L (21-32); CHLORIDE 108 MMOL/L (98-107); CREATININE 1.2 MG/DL (0.55-1.30); POTASSIUM 4.3 MMOL/L (3.5-5.1); SODIUM 140 MMOL/L (136-145)
--- NOTE | 2019-03-27 07:30 | NUR ---
NURSE NOTES: Received pt from BRYAN BUSTILLO. Pt is alert and orient x4. pt is in RA, No SOB or acute respiratory distress noted. pt has intact iv access RFA 22G is running well. Pt is eating breakfast independently. pt has Vo cath in place is running well. Vo flushed as order. all needs attended, bed is locked and is in the lowest position. call light within easy reach. will continue to monitor.
--- NOTE | 2019-03-27 07:54 | NUR ---
HAND-OFF: Report given to LUISA ADAMS.
[2019-03-27 08:00] VITALS: BP 131/75
[2019-03-27] MEDS: Solifenacin 10mg tab ORAL SCH (09:04)
[2019-03-27] MEDS: Aspirin EC 81mg tab ORAL SCH (09:04)
[2019-03-27] MEDS: Tamsulosin 0.4mg cap ORAL SCH ×2 (09:05→17:35)
[2019-03-27] MEDS: Docusate 100mg cap ORAL SCH ×3 (09:05→17:35)
[2019-03-27] MEDS: Heparin 5000 units/ml inj SUBQ SCH ×2 (09:09→21:12)
--- NOTE | 2019-03-27 09:20 | General Progress Note ---
Assessment/Plan Problem List: (1) UTI (urinary tract infection) ICD Codes: N39.0 - Urinary tract infection, site not specified SNOMED: 31696566 (2) Hypertension ICD Codes: I10 - Essential (primary) hypertension SNOMED: 47394427 (3) Chronic constipation ICD Codes: K59.09 - Other constipation SNOMED: 025138918 (4) Weakness ICD Codes: R53.1 - Weakness SNOMED: 15226538 (5) Diabetes mellitus ICD Codes: E11.9 - Type 2 diabetes mellitus without complications SNOMED: 00085112 (6) Episode of generalized weakness ICD Codes: R53.1 - Weakness SNOMED: 04371112 Status: stable, progressing Assessment/Plan: pt diet abx cbc bmp am aru eval Subjective Constitutional: Reports: weakness Allergies: Coded Allergies: No Known Allergies (Unverified , 01/04/19) All Systems: reviewed and negative except above Subjective sl anxious in bed Objective Last 24 Hour Vital Signs Date Time Temp Pulse Resp B/P (MAP) Pulse Ox O2 Delivery O2 Flow Rate FiO2 03/27/19 08:56 89 20 96 Room Air 21 03/27/19 08:55 96 Room Air 21 03/27/19 08:00 97.4 95 19 131/75 (93) 94 03/27/19 04:00 97.0 80 18 118/70 (86) 96 03/27/19 00:00 97.0 80 18 112/62 (79) 97 03/26/19 21:00 Room Air 03/26/19 20:00 97.0 89 18 135/76 (95) 95 03/26/19 19:40 95 Nasal Cannula 3.0 32 03/26/19 19:40 84 16 95 Nasal Cannula 3.0 32 03/26/19 16:00 98.0 84 20 123/69 (87) 95 03/26/19 16:00 77 03/26/19 12:00 97.6 85 20 120/69 (86) 93 03/26/19 12:00 86 Intake and Output 03/26/19 03/27/19 19:00 07:00 Intake Total 290 ml 790 ml Output Total 1300 ml 900 ml Balance -1010 ml -110 ml Intake Oral 240 ml 240 ml IV Total 50 ml 550 ml Output Urine Total 1300 ml 900 ml # Voids 1 # Bowel Movements 1 Laboratory Tests 03/27/19 05:20: White Blood Count 10.5, Red Blood Count 5.61, Hemoglobin 15.3, Hematocrit 48.2, Mean Corpuscular Volume 86, Mean Corpuscular Hemoglobin 27.2, Mean Corpuscular Hemoglobin Concent 31.7L, Red Cell Distribution Width 12.2, Platelet Count 329, Mean Platelet Volume 6.8, Neutrophils (%) (Auto) 73.1, Lymphocytes (%) (Auto) 12.2L, Monocytes (%) (Auto) 9.9, Eosinophils (%) (Auto) 3.2H, Basophils (%) ( Auto) 1.5, Sodium Level 140, Potassium Level 4.3, Chloride Level 108H, Carbon Dioxide Level 24, Anion Gap 8, Blood Urea Nitrogen 26H, Creatinine 1.2, Estimat Glomerular Filtration Rate , Glucose Level 104, Calcium Level 9.2 Height (Feet): 5 Height (Inches): 10.00 Weight (Pounds): 170 General Appearance: lethargic EENT: normal ENT inspection Neck: normal alignment Cardiovascular: normal peripheral pulses, normal rate, regular rhythm Respiratory/Chest: chest wall non-tender, lungs clear, normal breath sounds Abdomen: normal bowel sounds, non tender, soft Extremities: normal inspection Edema: no edema noted Arm (L), no edema noted Arm (R), no edema noted Leg (L), no edema noted Leg (R), no edema noted Pedal (L), no edema noted Pedal (R), no edema noted Generalized Neurologic: responsive, motor weakness Skin: normal pigmentation, warm/dry Chris Tipton DO Mar 27, 2019 09:20
[2019-03-27] MEDS ORDERED: NS Irrig 1000ml ONE (09:40)
[2019-03-27] MEDS ORDERED: NS 275ml ONE (09:40)
[2019-03-27] MEDS ORDERED: 1/2 NS 1000ml IV ONE (09:40)
[2019-03-27] MEDS ORDERED: Tubing IV Secondary IV ONE (09:40)
[2019-03-27] MEDS ORDERED: cefTRIAXone 1 GM in D5W 55 ML IVPB SCH (10:00)
--- NOTE | 2019-03-27 10:24 | Neurology Progress Note ---
Interim History Interim History Interim History Mr. Pfeiffer feels better. He continues to have increased movements on his right side. He right sided ptosis is much better. The sensations are normal on the right. He is able to communicate well. He denies any new neurologic problems. He is eager to start rehab. Review of Systems Neuro Review of Systems Benign. Objective Physical Exam Last Vital Signs Date Time Temp Pulse Resp B/P (MAP) Pulse Ox O2 Delivery O2 Flow Rate FiO2 03/27/19 08:56 89 20 96 Room Air 21 03/27/19 08:00 97.4 131/75 (93) 03/26/19 19:40 3.0 Laboratory Tests Test 03/27/19 05:20 White Blood Count 10.5 K/UL (4.8-10.8) Red Blood Count 5.61 M/UL (4.70-6.10) Hemoglobin 15.3 G/DL (14.2-18.0) Hematocrit 48.2 % (42.0-52.0) Mean Corpuscular Volume 86 FL (80-99) Mean Corpuscular Hemoglobin 27.2 PG (27.0-31.0) Mean Corpuscular Hemoglobin Concent 31.7 G/DL (32.0-36.0) L Red Cell Distribution Width 12.2 % (11.6-14.8) Platelet Count 329 K/UL (150-450) Mean Platelet Volume 6.8 FL (6.5-10.1) Neutrophils (%) (Auto) 73.1 % (45.0-75.0) Lymphocytes (%) (Auto) 12.2 % (20.0-45.0) L Monocytes (%) (Auto) 9.9 % (1.0-10.0) Eosinophils (%) (Auto) 3.2 % (0.0-3.0) H Basophils (%) (Auto) 1.5 % (0.0-2.0) Sodium Level 140 MMOL/L (136-145) Potassium Level 4.3 MMOL/L (3.5-5.1) Chloride Level 108 MMOL/L (98-107) H Carbon Dioxide Level 24 MMOL/L (21-32) Anion Gap 8 mmol/L (5-15) Blood Urea Nitrogen 26 mg/dL (7-18) H Creatinine 1.2 MG/DL (0.55-1.30) Estimat Glomerular Filtration Rate mL/min (>60) Glucose Level 104 MG/DL (74-106) Calcium Level 9.2 MG/DL (8.5-10.1) Neurologic Exam Objective PHYSICAL EXAMINATION: GENERAL: He is a well-developed, well-nourished, pleasant gentleman, lying in bed, in no acute distress. HEAD: Normocephalic and atraumatic. EENT: Examination benign. NECK: No neck rigidity was observed. NEUROLOGICAL EXAMINATION: MENTAL STATUS EXAMINATION: He was awake and alert. He was oriented to person, place, and time. He was able to recall 3/3 words immediately, but could remember them in 1 minute and 3 minutes. He was able to remember Presidents Trump and Obama spontaneously, but needed hints to remember through [employer]. His mathematical skills were good. His visuospatial function was minimally impaired. SPEECH: He had no dysarthria. LANGUAGE: He had an anomia for low-frequency words. CRANIAL NERVE EXAMINATION: II: The visual quintanilla were intact. He however had poor vision in the right eye in addition. III, IV & : The external ocular movements were full. The pupils 3 mm in diameter and reactive sluggishly to light. He had (mild 2 mm of) ptosis on the right side. V: He had normal facial sensations and the temporales, masseters, and pterygoids functioned normally. VII: He had a right seventh central facial paresis. VIII: He was able to hear well bilaterally and had no nystagmus. IX: The palate moved symmetrically on phonation. X: He had no hoarseness of voice. XI: The sternocleidomastoids and trapezii functioned normally. XII: The tongue was in the midline without any fasciculations or atrophy. MOTOR SYSTEM: The tone was flaccid in the right upper extremity and diminished in the right lower extremity. Examination of muscle mass revealed no focal wasting. Examination of power revealed G 5/5 power on the left side. On the right side, he had G 0/5 power except for G 3/5 power in the finger flexors, finger extensors and quadriceps, G 2/5 in the biceps, triceps, ankle dorsiflexors and ankle plantar flexors. SENSORY EXAMINATION: He had intact sensations to pinprick, light touch, and graphesthesia. COORDINATION: He performed well on [id number] and [id number] testing on the left side, but could not perform on the right side. REFLEXES: 2++ on the right and 1+ on the left at the biceps, triceps, brachioradialis, knees, 0 at both ankles. The plantar response was extensor on the right and flexor on the left. STANCE & GAIT: Could not be tested. Impression/Recommendations Diagnostic Impression 1. Mr. Kemar Pfeiffer is an 83-year-old right-handed, gentleman, with a long history of hypertension, diabetes mellitus, benign prostatic hypertrophy , and gait problems related to spinal stenosis who on 03/11/2019 noticed some problems with walking because his right leg would not carry him too well. On , he became significantly more weak on the right side with involvement of his face , upper and lower extremities. He was taken to another hospital, evaluated there, and was told that he had a stroke. He was kept there for about a week and then sent back to his [facility] where he started to feel palpitations and as a result of that was hospitalized at [facility] on 2018. 2. He feels better. He continues to have increased movements on his right side. He right sided ptosis is much better. The sensations are normal on the right. He is able to communicate well. He denies any new neurologic problems. He is eager to start rehab. 3. On neurological examination, at this time, he is fully oriented. He has problems with recent and remote memory, problems with visuospatial function, and a mild anomia. The right-sided ptosis is significantly better. He has poor vision in the right eye. He in addition has a mild right seventh central facial paresis, right hemiparesis which is definitely better today, brisker reflexes on the right side compared to the left, and an extensor plantar response on the right side. 4. Laboratory data on my initial evaluation revealed that his WBC count was elevated to 14,800, his hemoglobin was at 16.0. His chemistry panel revealed a BUN elevated at 38 with a creatinine of 1.5. His glucose was high at 128. His proBNP was elevated at 641. His albumin was low at 2.5. His urinalysis revealed 1+ leukocyte esterase, too numerous to count red blood cells, and 0-2 white blood cells per high-power field with a moderate amount of bacteria in the urine. 5. Further laboratory tests have revealed a normal lipid panel but a low Vitamin B12 level at 362. The ammonia is also minimally elevated at 37. 6. The CT scan of the brain without contrast revealed atrophy, deep white matter changes, and a recent deep white matter infarct involving the left luther radiata. 7. The MRI of the brain done on 03/24/19 revealed recent infarcts in the left luther radiata and the right parietal deep white matter, and multiple older inrarcts in multiple vacular territories. 8. The patient's history, neurological examination, laboratory data, and imaging studies are most consistent with a recent left luther radiata infarct leading to severe right hemiparesis. The most likely etiology for the patient' s cerebrovascular disease is hypertensive/diabetic cerebrovascular disease. The patient has also been noted to have atrial fibrillation in the past and was on Eliquis which has recently been stopped. The cardiac arrhythmia may may also be responsible for his multiple strokes. Recommendations 1. Continue present management. 2. Treatment of high blood pressure with a goal of < 120/80 at all times in the near future. 3. Strict blood sugar control with the name of hemoglobin A1c <6%. 4. Continue ASA 81 mg q day and restart anticoagulation. 5. Await Carotid Duplex. 6. Treatment of cardiac arrhythmia per Dr. Goncalves. 7. Rehabilitate the patient with the help of physical, occupational, and speech and language therapy. 8. Agree with acute rehab. Huan Estrada M.D., M.S.P.H. Huan Estrada MD Mar 27, 2019 10:24
--- NOTE | 2019-03-27 11:30 | NUR ---
NURSE NOTES:WOUND CARE NOTES: Non-blanching erythema sacrum resolving. Less erythema noted. Non-tender when minimally palpated. Scrotal erythema noted. L heel resolving .L heel is fluctuant but blanchable and non-tender. Non-blanchable erythema with fluctuance R heel (L)3.3cm x (W)5cm. No new skin concerns noted. Re-educated pt to frequently turn while in bed.Both heels are floated with pillow. No new skin breakdown noted.
[2019-03-27 12:00] VITALS: BP 139/72
--- NOTE | 2019-03-27 12:52 | Nephrology Progress Note ---
Assessment/Plan Problem List: (1) Renal failure (ARF), acute on chronic (2) Dehydration (3) UTI (urinary tract infection) (4) Hypertension Assessment Renal failure- mainly dehydration h/o anemia GERD CVA w/ R side deficit DM2 UTI Plan Hydrate- Antibiotics Monitor renal parameters avoid nephrotoxics Subjective ROS Limited/Unobtainable: No Constitutional: Reports: malaise Objective Objective Last 24 Hour Vital Signs Date Time Temp Pulse Resp B/P (MAP) Pulse Ox O2 Delivery O2 Flow Rate FiO2 03/27/19 12:00 97.4 95 19 139/72 (94) 98 03/27/19 08:56 89 20 96 Room Air 21 03/27/19 08:55 96 Room Air 21 03/27/19 08:00 97.4 95 19 131/75 (93) 94 03/27/19 04:00 97.0 80 18 118/70 (86) 96 03/27/19 00:00 97.0 80 18 112/62 (79) 97 03/26/19 21:00 Room Air 03/26/19 20:00 97.0 89 18 135/76 (95) 95 03/26/19 19:40 95 Nasal Cannula 3.0 32 03/26/19 19:40 84 16 95 Nasal Cannula 3.0 32 03/26/19 16:00 98.0 84 20 123/69 (87) 95 03/26/19 16:00 77 Intake and Output 03/26/19 03/27/19 19:00 07:00 Intake Total 290 ml 790 ml Output Total 1300 ml 900 ml Balance -1010 ml -110 ml Intake Oral 240 ml 240 ml IV Total 50 ml 550 ml Output Urine Total 1300 ml 900 ml # Voids 1 # Bowel Movements 1 Laboratory Tests 03/27/19 05:20: White Blood Count 10.5, Red Blood Count 5.61, Hemoglobin 15.3, Hematocrit 48.2, Mean Corpuscular Volume 86, Mean Corpuscular Hemoglobin 27.2, Mean Corpuscular Hemoglobin Concent 31.7L, Red Cell Distribution Width 12.2, Platelet Count 329, Mean Platelet Volume 6.8, Neutrophils (%) (Auto) 73.1, Lymphocytes (%) (Auto) 12.2L, Monocytes (%) (Auto) 9.9, Eosinophils (%) (Auto) 3.2H, Basophils (%) ( Auto) 1.5, Sodium Level 140, Potassium Level 4.3, Chloride Level 108H, Carbon Dioxide Level 24, Anion Gap 8, Blood Urea Nitrogen 26H, Creatinine 1.2, Estimat Glomerular Filtration Rate , Glucose Level 104, Calcium Level 9.2 Height (Feet): 5 Height (Inches): 10.00 Weight (Pounds): 170 General Appearance: no apparent distress, lethargic Cardiovascular: tachycardia Respiratory/Chest: decreased breath sounds Abdomen: soft Objective no change Devonte Zuniga MD Mar 27, 2019 12:52
--- NOTE | 2019-03-27 13:08 | Infectious Diseases Prog Note ---
Assessment/Plan Assessment/Plan Assessment: Probable UTI (+hematuria, leukocytosis) -ucx Neg -Bcx NTD Afebrile Mild leukocytosis; resolved -CXR: Chronic lung disease. No change -sp cx oral contamination Generalized weakness Acute vs subacute lacunar infarct- ?embolic source- suspect 2ry to Afib -MRI brain: Positive for acute versus subacute lacunar infarct of the left luther radiata extending into the left basal ganglia. Presence of a fairly well- defined abnormality on recent CT scan indicates that this is subacute. Tiny acute versus subacute infarcts of the left posterior tobar-white junction and of the right thalamus. Multiplicity of infarcts indicates embolic etiology. Distribution over multiple vascular territories suggests cardiac origin. It is possible that all of these originate from the posterior circulation, but the left-sided infarct is more likely from the anterior circulation More questionable diffusion restriction extending into the bilateral cerebral peduncles. Suspect that these findings are artifactual. Negative for acute intracranial bleed or mass effect -CT head: 1.4 cm lacunar infarct in the left periventricular white matter probably old. Correlate clinically. Moderate atrophy of the brain. Evidence of chronic small vessel disease involving white matter tracts. -2d Echo: no thrombus, no vegetations CATHERINE; improving Afib anemia GERD CVA w/ R side deficit DM2 Plan: -D/c Ceftriaxone #5 (abx d #6/5) for probable UTI -03/23 SP IV Vancomycin #2, CEfepime #2 -f/u cx -Monitor CBC/CMP, temperatures -Cards f/u Thank you for this consultation. Will continue to follow along with you. Discussed with RN. Subjective Allergies: Coded Allergies: No Known Allergies (Unverified , 01/04/19) Subjective afebrile leukocytosis resolved Objective Vital Signs Last 24 Hour Vital Signs Date Time Temp Pulse Resp B/P (MAP) Pulse Ox O2 Delivery O2 Flow Rate FiO2 03/27/19 12:00 97.4 95 19 139/72 (94) 98 03/27/19 09:00 Room Air 03/27/19 08:56 89 20 96 Room Air 21 03/27/19 08:55 96 Room Air 21 03/27/19 08:00 97.4 95 19 131/75 (93) 94 03/27/19 04:00 97.0 80 18 118/70 (86) 96 03/27/19 00:00 97.0 80 18 112/62 (79) 97 03/26/19 21:00 Room Air 03/26/19 20:00 97.0 89 18 135/76 (95) 95 03/26/19 19:40 95 Nasal Cannula 3.0 32 03/26/19 19:40 84 16 95 Nasal Cannula 3.0 32 03/26/19 16:00 98.0 84 20 123/69 (87) 95 03/26/19 16:00 77 Height (Feet): 5 Height (Inches): 10.00 Weight (Pounds): 170 Objective HEAD AND SHOWS: No JVD. LUNGS: Clear. CARDIOVASCULAR: Regular S1 and S2 with no gallop or murmur, tachycardic ABDOMEN: Soft. EXTREMITIES: No pitting edema. Microbiology Date/Time Source Procedure Growth Status 03/25/19 20:00 Sputum Gram Stain - Final Resulted 03/25/19 20:00 Sputum Sputum Culture Pending Resulted Laboratory Tests Test 03/27/19 05:20 White Blood Count 10.5 K/UL (4.8-10.8) Red Blood Count 5.61 M/UL (4.70-6.10) Hemoglobin 15.3 G/DL (14.2-18.0) Hematocrit 48.2 % (42.0-52.0) Mean Corpuscular Volume 86 FL (80-99) Mean Corpuscular Hemoglobin 27.2 PG (27.0-31.0) Mean Corpuscular Hemoglobin Concent 31.7 G/DL (32.0-36.0) L Red Cell Distribution Width 12.2 % (11.6-14.8) Platelet Count 329 K/UL (150-450) Mean Platelet Volume 6.8 FL (6.5-10.1) Neutrophils (%) (Auto) 73.1 % (45.0-75.0) Lymphocytes (%) (Auto) 12.2 % (20.0-45.0) L Monocytes (%) (Auto) 9.9 % (1.0-10.0) Eosinophils (%) (Auto) 3.2 % (0.0-3.0) H Basophils (%) (Auto) 1.5 % (0.0-2.0) Sodium Level 140 MMOL/L (136-145) Potassium Level 4.3 MMOL/L (3.5-5.1) Chloride Level 108 MMOL/L (98-107) H Carbon Dioxide Level 24 MMOL/L (21-32) Anion Gap 8 mmol/L (5-15) Blood Urea Nitrogen 26 mg/dL (7-18) H Creatinine 1.2 MG/DL (0.55-1.30) Estimat Glomerular Filtration Rate mL/min (>60) Glucose Level 104 MG/DL (74-106) Calcium Level 9.2 MG/DL (8.5-10.1) Current Medications Medications (Trade) Dose Ordered Sig/Amaya Route PRN Reason Start Time Stop Time Status Last Admin Dose Admin Acetaminophen (Tylenol) 650 mg Q4H PRN ORAL fever 03/26/19 18:00 04/21/19 17:59 Albuterol/ Ipratropium (Albuterol/ Ipratropium) 3 ml Q4H PRN HHN Shortness of Breath 03/26/19 18:00 03/27/19 17:59 Aspirin (Ecotrin) 81 mg DAILY ORAL 03/27/19 09:00 04/25/19 08:59 03/27/19 09:04 Ceftriaxone Sodium 1 gm/ Dextrose 55 ml @ 110 mls/hr Q24H IVPB 03/27/19 10:00 03/31/19 09:59 03/27/19 09:10 Dextrose (Dextrose 50%) 25 ml Q30M PRN IV Hypoglycemia 03/26/19 18:00 04/21/19 13:45 Dextrose (Dextrose 50%) 50 ml Q30M PRN IV hypoglycemia 03/26/19 18:00 04/21/19 13:59 Diazepam (Valium) 5 mg BEDTIME PRN ORAL For Anxiety 03/26/19 21:00 03/29/19 13:44 03/26/19 23:39 Docusate Sodium (Colace) 100 mg TID ORAL 03/27/19 09:00 04/26/19 08:59 03/27/19 12:07 Heparin Sodium (Porcine) (Heparin 5000 units/ml) 5,000 units EVERY 12 HOURS SUBQ 03/26/19 21:00 04/21/19 20:59 03/27/19 09:09 Insulin Aspart (NovoLOG) BEFORE MEALS AND HS SUBQ 03/26/19 21:00 04/21/19 16:29 Mineral Oil (Fleet's Mineral Oil Enema) 133 ml DAILYPRN PRN RECTAL Constipation 03/26/19 18:00 04/25/19 17:59 Morphine Sulfate (Morphine Sulfate) 2 mg Q4H PRN IVP Moderate Pain (Pain Scale 4-6) 03/26/19 18:00 03/29/19 17:59 Nitroglycerin (Ntg) 0.4 mg Q5M PRN SL Prn Chest Pain 03/26/19 18:00 04/21/19 13:44 Ondansetron HCl (Zofran) 4 mg Q6H PRN IVP Nausea & Vomiting 03/26/19 18:00 04/22/19 17:59 Pantoprazole (Protonix) 40 mg DAILY ORAL 03/27/19 09:00 04/23/19 08:59 03/27/19 09:05 Polyethylene Glycol (Miralax) 17 gm DAILYPRN PRN ORAL Constipation 03/26/19 18:00 04/22/19 17:59 Sodium Chloride 1,000 ml @ 50 mls/hr Q20H IV 03/26/19 18:00 04/24/19 11:59 03/27/19 06:13 Solifenacin (Vesicare) 10 mg DAILY ORAL 03/27/19 09:00 04/22/19 08:59 03/27/19 09:04 Tamsulosin HCl (Flomax) 0.4 mg BID ORAL 03/27/19 09:00 04/26/19 08:59 03/27/19 09:05 Temazepam (Restoril) 15 mg HSPRN PRN ORAL Insomnia 03/26/19 21:00 03/30/19 20:59 Daly Sánchez M.D. Mar 27, 2019 13:08
--- NOTE | 2019-03-27 13:15 | Progress Note ---
DATE: 03/27/2019 SUBJECTIVE: The patient is an 83-year-old male, highly anxious, irritable, confused. He has MRSA, gastritis, CVA, hyperlipidemia, urinary tract infection causing him to have altered mental status, confusion, decline in his cognition below his baseline. That is why, his attending physician has requested daily psychiatric consultation. DIAGNOSIS: Major depressive disorder, mild, recurrent with psychotic features, rule out dementia with psychosis. PLAN: Continue treatment with his medications with Valium and Zoloft to reduce depression, anxiety, and mood lability. A 20 minutes of cognitive behavioral therapy to help him identify his automatic negative thoughts, help him convert those negative thoughts to more positive thoughts to reduce depression, anxiety, and mood lability. Chart reviewed. Discussed with staff. Seen and assessed at bedside. Stephani Granger M.D. DR: ABBY JOB#: [id number] CC:
--- NOTE | 2019-03-27 13:48 | Surgery Progress Note ---
Surgery Progress Note Subjective Additional Comments no acute events comfortable labs okay tolerating diet no complaints. Objective Last 24 Hour Vital Signs Date Time Temp Pulse Resp B/P (MAP) Pulse Ox O2 Delivery O2 Flow Rate FiO2 03/27/19 12:00 97.4 95 19 139/72 (94) 98 03/27/19 09:00 Room Air 03/27/19 08:56 89 20 96 Room Air 21 03/27/19 08:55 96 Room Air 21 03/27/19 08:00 97.4 95 19 131/75 (93) 94 03/27/19 04:00 97.0 80 18 118/70 (86) 96 03/27/19 00:00 97.0 80 18 112/62 (79) 97 03/26/19 21:00 Room Air 03/26/19 20:00 97.0 89 18 135/76 (95) 95 03/26/19 19:40 95 Nasal Cannula 3.0 32 03/26/19 19:40 84 16 95 Nasal Cannula 3.0 32 03/26/19 16:00 98.0 84 20 123/69 (87) 95 03/26/19 16:00 77 I&O Intake and Output 03/26/19 03/27/19 19:00 07:00 Intake Total 290 ml 790 ml Output Total 1300 ml 900 ml Balance -1010 ml -110 ml Intake Oral 240 ml 240 ml IV Total 50 ml 550 ml Output Urine Total 1300 ml 900 ml # Voids 1 # Bowel Movements 1 Dressing: dry Wound: clean Cardiovascular: RSR Respiratory: clear Abdomen: soft, present bowel sounds, non-distended Extremities: no cyanosis Laboratory Tests Test 03/27/19 05:20 White Blood Count 10.5 K/UL (4.8-10.8) Red Blood Count 5.61 M/UL (4.70-6.10) Hemoglobin 15.3 G/DL (14.2-18.0) Hematocrit 48.2 % (42.0-52.0) Mean Corpuscular Volume 86 FL (80-99) Mean Corpuscular Hemoglobin 27.2 PG (27.0-31.0) Mean Corpuscular Hemoglobin Concent 31.7 G/DL (32.0-36.0) L Red Cell Distribution Width 12.2 % (11.6-14.8) Platelet Count 329 K/UL (150-450) Mean Platelet Volume 6.8 FL (6.5-10.1) Neutrophils (%) (Auto) 73.1 % (45.0-75.0) Lymphocytes (%) (Auto) 12.2 % (20.0-45.0) L Monocytes (%) (Auto) 9.9 % (1.0-10.0) Eosinophils (%) (Auto) 3.2 % (0.0-3.0) H Basophils (%) (Auto) 1.5 % (0.0-2.0) Sodium Level 140 MMOL/L (136-145) Potassium Level 4.3 MMOL/L (3.5-5.1) Chloride Level 108 MMOL/L (98-107) H Carbon Dioxide Level 24 MMOL/L (21-32) Anion Gap 8 mmol/L (5-15) Blood Urea Nitrogen 26 mg/dL (7-18) H Creatinine 1.2 MG/DL (0.55-1.30) Estimat Glomerular Filtration Rate mL/min (>60) Glucose Level 104 MG/DL (74-106) Calcium Level 9.2 MG/DL (8.5-10.1) Plan Problems: (1) Diabetes mellitus (2) Sepsis due to urinary tract infection (3) Episode of generalized weakness (4) Weakness (5) UTI (urinary tract infection) (6) Hypertension (7) Chronic constipation (8) Dehydration (9) Renal failure (ARF), acute on chronic (10) Cerebrovascular accident (CVA) (11) Gastritis (12) Incontinence (13) MRSA (methicillin resistant Staphylococcus aureus) infection (14) MRSA pyemia (15) Multiple polyps of sigmoid colon (16) Decubitus skin ulcer Assessment & Plan: Pt presented on admission with non-blanchable erythema sacrum (L)3cm x (W)4cm. Tender when minimally palpated. Scrotal area is red. Non-blanchable erythema with fluctuance noted to L heel.Pt denied tenderness when minimally palpated. Non-blanchable erythema without fluctuance R heel. Non-tender when minimally palpated. Discussed with pt skin breakdown noted at present and pt was educated on wound prevention. Instructed pt to frequently reposition self in bed. Instructed pt on using side rails to shift weight. Instructed to avoid sliding against bed linens but to off-lift buttocks when repositioning.Pt also instructed on keeping heels floated off bed with pillows. Patient at high risk for developing worsening decubitus given recent deficit. he states difficult to move and reposition but will continue to try will have physical therapy work with patient Tx.Plan: Apply Moisture Barrier Paste to scrotum with each perineal care. Apply Moisture Barrier Paste to sacrum. Cover with Optifoam drsg. Change every 3 days and prn. Apply Cavilon Skin Barrier to both heels. Cover each heel with Optifoam drsg. Change every 7 days and prn. Assist with repositioning at least every 2hours or as tolerated. Off-load heels with pillow. Guru France Mar 27, 2019 13:48
--- NOTE | 2019-03-27 14:20 | NUR ---
DISCHARGE PLANNING PATIENT HAS BEEN REFERRED [facility] Addendum: 03/27/19 at 1621 by PITA FLORIAN LVN LVN RECEIVED MESSAGE FROM MIRIAM AT [facility] STATING THEY WILL ACCEPT PATIENT TOMORROW MIRIAM ALSO REQUESTED UPDATED PT NOTES BE FAXED TO THEM T: [phone] F: [phone] PT NOTES FOR TODAY ARE NOT YET AVAILABLE
--- NOTE | 2019-03-27 14:33 | Pulmonology Progress Note ---
Assessment/Plan Problems: (1) Sepsis due to urinary tract infection (2) Cerebrovascular accident (CVA) (3) Hypertension (4) Diabetes mellitus (5) Episode of generalized weakness Assessment/Plan doing better no new complains pt/ot all meds/notes reviewed Subjective ROS Limited/Unobtainable: No Constitutional: Reports: no symptoms HEENT: Repors: no symptoms Allergies: Coded Allergies: No Known Allergies (Unverified , 01/04/19) Objective Last 24 Hour Vital Signs Date Time Temp Pulse Resp B/P (MAP) Pulse Ox O2 Delivery O2 Flow Rate FiO2 03/27/19 12:00 97.4 95 19 139/72 (94) 98 03/27/19 09:00 Room Air 03/27/19 08:56 89 20 96 Room Air 21 03/27/19 08:55 96 Room Air 21 03/27/19 08:00 97.4 95 19 131/75 (93) 94 03/27/19 04:00 97.0 80 18 118/70 (86) 96 03/27/19 00:00 97.0 80 18 112/62 (79) 97 03/26/19 21:00 Room Air 03/26/19 20:00 97.0 89 18 135/76 (95) 95 03/26/19 19:40 95 Nasal Cannula 3.0 32 03/26/19 19:40 84 16 95 Nasal Cannula 3.0 32 03/26/19 16:00 98.0 84 20 123/69 (87) 95 03/26/19 16:00 77 Intake and Output 03/26/19 03/27/19 19:00 07:00 Intake Total 290 ml 790 ml Output Total 1300 ml 900 ml Balance -1010 ml -110 ml Intake Oral 240 ml 240 ml IV Total 50 ml 550 ml Output Urine Total 1300 ml 900 ml # Voids 1 # Bowel Movements 1 General Appearance: WD/WN HEENT: normocephalic, atraumatic Respiratory/Chest: chest wall non-tender, lungs clear, no respiratory distress Cardiovascular: normal peripheral pulses, normal rate Abdomen: normal bowel sounds, soft, non tender Genitourinary: normal external genitalia Extremities: no clubbing Skin: no rash Microbiology Date/Time Source Procedure Growth Status 03/25/19 20:00 Sputum Gram Stain - Final Resulted 03/25/19 20:00 Sputum Sputum Culture Pending Resulted Laboratory Tests 03/27/19 05:20: White Blood Count 10.5, Red Blood Count 5.61, Hemoglobin 15.3, Hematocrit 48.2, Mean Corpuscular Volume 86, Mean Corpuscular Hemoglobin 27.2, Mean Corpuscular Hemoglobin Concent 31.7L, Red Cell Distribution Width 12.2, Platelet Count 329, Mean Platelet Volume 6.8, Neutrophils (%) (Auto) 73.1, Lymphocytes (%) (Auto) 12.2L, Monocytes (%) (Auto) 9.9, Eosinophils (%) (Auto) 3.2H, Basophils (%) ( Auto) 1.5, Sodium Level 140, Potassium Level 4.3, Chloride Level 108H, Carbon Dioxide Level 24, Anion Gap 8, Blood Urea Nitrogen 26H, Creatinine 1.2, Estimat Glomerular Filtration Rate , Glucose Level 104, Calcium Level 9.2 Current Medications Medications (Trade) Dose Ordered Sig/Amaya Route PRN Reason Start Time Stop Time Status Last Admin Dose Admin Acetaminophen (Tylenol) 650 mg Q4H PRN ORAL fever 03/26/19 18:00 04/21/19 17:59 Albuterol/ Ipratropium (Albuterol/ Ipratropium) 3 ml Q4H PRN HHN Shortness of Breath 03/26/19 18:00 03/27/19 17:59 Aspirin (Ecotrin) 81 mg DAILY ORAL 03/27/19 09:00 04/25/19 08:59 03/27/19 09:04 Dextrose (Dextrose 50%) 25 ml Q30M PRN IV Hypoglycemia 03/26/19 18:00 04/21/19 13:45 Dextrose (Dextrose 50%) 50 ml Q30M PRN IV hypoglycemia 03/26/19 18:00 04/21/19 13:59 Diazepam (Valium) 5 mg BEDTIME PRN ORAL For Anxiety 03/26/19 21:00 03/29/19 13:44 03/26/19 23:39 Docusate Sodium (Colace) 100 mg TID ORAL 03/27/19 09:00 04/26/19 08:59 03/27/19 12:07 Heparin Sodium (Porcine) (Heparin 5000 units/ml) 5,000 units EVERY 12 HOURS SUBQ 03/26/19 21:00 04/21/19 20:59 03/27/19 09:09 Insulin Aspart (NovoLOG) BEFORE MEALS AND HS SUBQ 03/26/19 21:00 04/21/19 16:29 Mineral Oil (Fleet's Mineral Oil Enema) 133 ml DAILYPRN PRN RECTAL Constipation 03/26/19 18:00 04/25/19 17:59 Morphine Sulfate (Morphine Sulfate) 2 mg Q4H PRN IVP Moderate Pain (Pain Scale 4-6) 03/26/19 18:00 03/29/19 17:59 Nitroglycerin (Ntg) 0.4 mg Q5M PRN SL Prn Chest Pain 03/26/19 18:00 04/21/19 13:44 Ondansetron HCl (Zofran) 4 mg Q6H PRN IVP Nausea & Vomiting 03/26/19 18:00 04/22/19 17:59 Pantoprazole (Protonix) 40 mg DAILY ORAL 03/27/19 09:00 04/23/19 08:59 03/27/19 09:05 Polyethylene Glycol (Miralax) 17 gm DAILYPRN PRN ORAL Constipation 03/26/19 18:00 04/22/19 17:59 Sodium Chloride 1,000 ml @ 50 mls/hr Q20H IV 03/26/19 18:00 04/24/19 11:59 03/27/19 06:13 Solifenacin (Vesicare) 10 mg DAILY ORAL 03/27/19 09:00 04/22/19 08:59 03/27/19 09:04 Tamsulosin HCl (Flomax) 0.4 mg BID ORAL 03/27/19 09:00 04/26/19 08:59 03/27/19 09:05 Temazepam (Restoril) 15 mg HSPRN PRN ORAL Insomnia 03/26/19 21:00 03/30/19 20:59 Angelita Alarcon MD Mar 27, 2019 14:33
[2019-03-27 16:00] VITALS: BP 142/83
--- NOTE | 2019-03-27 19:27 | NUR ---
NURSE NOTES: Received patient in bed, on room air, awake, alert, oriented, bed bound, no acute distress noted, VSS, afebrile. Vo catheter is in place, draining well. Call light is within reach, bed is in low position, locked and alarm is on. Will continue to monitor for safety and comfort.
--- NOTE | 2019-03-27 19:33 | NUR ---
HAND-OFF: Report given to BRYAN ROMERO.
--- NOTE | 2019-03-27 19:54 | Cardiac Electrophysiology PN ---
Assessment/Plan Assessment/Plan 1. Possible atrial fibrillation causing stroke. Was on Eliquis 5 mg b.i.d. that is changed to heparin subcutaneous. EKG and tele showed SR and echocardiogram showed Nl EF. Now off tele. 2. HTN , currently off antihypertensives. 3. Diabetes. 4. CVA with hemiplegia. MRI Impression: Positive for acute versus subacute lacunar infarct of the left luther radiata extending into the left basal ganglia. Presence of a fairly well-defined abnormality on recent CT scan indicates that this is subacute 5. Renal failure with creatinine of 1.5. 6. Anemia. Eliquis has been held. BILL RN [facility] Subjective Subjective Alert in NAD. No CP or SOB. Transferred to [facility]. Objective Last 24 Hour Vital Signs Date Time Temp Pulse Resp B/P (MAP) Pulse Ox O2 Delivery O2 Flow Rate FiO2 03/27/19 16:00 97.5 91 19 142/83 (102) 95 03/27/19 12:00 97.4 95 19 139/72 (94) 98 03/27/19 09:00 Room Air 03/27/19 08:56 89 20 96 Room Air 21 03/27/19 08:55 96 Room Air 21 03/27/19 08:00 97.4 95 19 131/75 (93) 94 03/27/19 04:00 97.0 80 18 118/70 (86) 96 03/27/19 00:00 97.0 80 18 112/62 (79) 97 03/26/19 21:00 Room Air 03/26/19 20:00 97.0 89 18 135/76 (95) 95 Intake and Output 03/26/19 03/27/19 18:59 06:59 Intake Total 240 ml 840 ml Output Total 1300 ml 900 ml Balance -1060 ml -60 ml Intake Oral 240 ml 240 ml IV Total 600 ml Output Urine Total 1300 ml 900 ml # Voids 1 # Bowel Movements 1 Laboratory Tests Test 03/27/19 05:20 White Blood Count 10.5 K/UL (4.8-10.8) Red Blood Count 5.61 M/UL (4.70-6.10) Hemoglobin 15.3 G/DL (14.2-18.0) Hematocrit 48.2 % (42.0-52.0) Mean Corpuscular Volume 86 FL (80-99) Mean Corpuscular Hemoglobin 27.2 PG (27.0-31.0) Mean Corpuscular Hemoglobin Concent 31.7 G/DL (32.0-36.0) L Red Cell Distribution Width 12.2 % (11.6-14.8) Platelet Count 329 K/UL (150-450) Mean Platelet Volume 6.8 FL (6.5-10.1) Neutrophils (%) (Auto) 73.1 % (45.0-75.0) Lymphocytes (%) (Auto) 12.2 % (20.0-45.0) L Monocytes (%) (Auto) 9.9 % (1.0-10.0) Eosinophils (%) (Auto) 3.2 % (0.0-3.0) H Basophils (%) (Auto) 1.5 % (0.0-2.0) Sodium Level 140 MMOL/L (136-145) Potassium Level 4.3 MMOL/L (3.5-5.1) Chloride Level 108 MMOL/L (98-107) H Carbon Dioxide Level 24 MMOL/L (21-32) Anion Gap 8 mmol/L (5-15) Blood Urea Nitrogen 26 mg/dL (7-18) H Creatinine 1.2 MG/DL (0.55-1.30) Estimat Glomerular Filtration Rate mL/min (>60) Glucose Level 104 MG/DL (74-106) Calcium Level 9.2 MG/DL (8.5-10.1) Microbiology Date/Time Source Procedure Growth Status 03/25/19 20:00 Sputum Gram Stain - Final Resulted 03/25/19 20:00 Sputum Sputum Culture Pending Resulted Objective HEAD AND SHOWS: No JVD. LUNGS: Clear. CARDIOVASCULAR: Regular S1 and S2 with no gallop or murmur, tachycardic ABDOMEN: Soft. EXTREMITIES: No pitting edema. Sabino Goncalves MD Mar 27, 2019 19:54
[2019-03-27 20:00] VITALS: BP 131/69
--- NOTE | 2019-03-27 20:03 | Cardiology Report ---
APPROVED REPORT EXAM: Two-dimensional and M-mode echocardiogram with Doppler and color Doppler. M-Mode DIMENSIONS IVSd1.3 (0.7-1.1cm)Left Atrium (MM)4.8 (1.6-4.0cm) LVDd5.2 (3.5-5.6cm)Aortic Root3.1 (2.0-3.7cm) PWd1.1 (0.7-1.1cm)Aortic Cusp Exc.1.8 (1.5-2.0cm) IVSs1.8 cm LVDs3.8 (2.5-4.0cm) PWs1.5 cm Technically difficult study due to poor acoustical windows. Normal left ventricular chamber size, systolic function and wall motion to extent visualized. Left ventricular ejection fraction estimated to be 55-60 %. No evidence of left ventricular hypertrophy. Anterior free space may be due to pericardial fat or effusion. All other cardiac chamber sizes are within normal limits. Focal aortic valve sclerosis with reduced cusp excursion. Thickened mitral valve leaflets with normal excursion. Mitral annulus and aortic root calcification. Normal pulmonic valve structure. Normal tricuspid valve structure. IVC at normal size with physiologic collapse. A color flow and spectral Doppler study was performed and revealed: Mild aortic regurgitation. Peak aortic valve gradient of 16 mm Hg and a mean of 9 mmHg. Aortic valve area 1.6 cm2 calculated by continuity equation. Trace mitral regurgitation. Mitral diastolic velocities suggest reduced left ventricular relaxation c/w mild LV diastolic dysfunction (Grade I ). Mild tricuspid regurgitation. Tricuspid systolic velocities suggests peak right ventricular systolic pressure of 37 mmHg,Consistent with mild pulmonary HTN .
--- NOTE | 2019-03-27 20:41 | Cardiology Report ---
APPROVED REPORT EKG Measurement Heart [id number] 170P22 [id number] Normal sinus rhythm Right bundle branch block Abnormal ECG
--- NOTE | 2019-03-27 20:50 | Cardiology Report ---
APPROVED REPORT EKG Measurement Heart [id number] MI [id number] Normal sinus rhythm Right bundle branch block Abnormal ECG
[2019-03-28] VITALS: BP 114/68
[2019-03-28 04:00] VITALS: BP 125/70
[2019-03-28] MEDS: NovoLOG Insulin Flexpen SUBQ SCH ×3 (06:08→16:30)
--- NOTE | 2019-03-28 07:12 | NUR ---
HAND-OFF: Report given to Yane ADAMS.
[2019-03-28 07:24] LABS: BASOPHILS % (AUTO) 1.4 % (0.0-2.0); EOSINOPHILS % (AUTO) 3.5 % (0.0-3.0); HEMATOCRIT 47.4 % (42.0-52.0); HEMOGLOBIN 15.4 G/DL (14.2-18.0); LYMPHOCYTES % (AUTO) 14.7 % (20.0-45.0); MEAN CORPUSCULAR VOLUME 85 FL (80-99); MONOCYTES % (AUTO) 8.3 % (1.0-10.0); NEUTROPHILS % (AUTO) 72.1 % (45.0-75.0); PLATELET COUNT 325 K/UL (150-450); RED BLOOD COUNT 5.56 M/UL (4.70-6.10); RED CELL DISTRIBUTION WIDTH 12.1 % (11.6-14.8); WHITE BLOOD COUNT 10.2 K/UL (4.8-10.8)
--- NOTE | 2019-03-28 07:26 | NUR ---
NURSE NOTES: Received pt from BRYAN ROMERO. Pt is alert and orient x4. pt is in RA, No SOB or acute respiratory distress noted. pt has intact iv access RFA 22G is running well. Pt is eating breakfast independently. pt has Vo cath in place is running well. Vo flushed as order. No complain of pain at this moment. all needs attended, bed is locked and is in the lowest position. call light within easy reach. will continue to monitor.
[2019-03-28 07:29] LABS: ANION GAP 9 mmol/L (5-15); BLOOD UREA NITROGEN 22 mg/dL (7-18); CALCIUM 9.3 MG/DL (8.5-10.1); CARBON DIOXIDE 24 MMOL/L (21-32); CHLORIDE 109 MMOL/L (98-107); CREATININE 1.2 MG/DL (0.55-1.30); SODIUM 142 MMOL/L (136-145)
[2019-03-28 08:00] VITALS: BP 143/81
[2019-03-28] MEDS: Solifenacin 10mg tab ORAL SCH (08:27)
[2019-03-28] MEDS: Aspirin EC 81mg tab ORAL SCH (08:27)
[2019-03-28] MEDS: Docusate 100mg cap ORAL SCH ×3 (08:27→17:22)
[2019-03-28] MEDS: Tamsulosin 0.4mg cap ORAL SCH ×2 (08:27→17:22)
[2019-03-28] MEDS: Heparin 5000 units/ml inj SUBQ SCH (08:28)
--- NOTE | 2019-03-28 10:45 | Progress Note ---
DATE: 03/28/2019 SUBJECTIVE: This is an 83-year-old male patient with weakness and dehydration, confused, and disorganized. He has got no logical plan for his own self-care. He has got feelings of helplessness, hopelessness, low energy, poor appetite, loss of interest in activity. That is why, he does require inpatient treatment at this time. The patient has high levels of anxiety. MENTAL STATUS EXAMINATION: This is an 83-year-old male. Appearance is disheveled. Attitude, irritable and agitated. Affect, guarded and restricted. Intellect poor. Mood, depressed and anxious. Motor activity, psychomotor agitation. Attention span is poor. Insight and judgment is poor. DIAGNOSIS: Depressive disorder, mild, recurrent with psychotic features, rule out dementia with psychosis. PLAN: Continue treatment with Zoloft 25 mg daily and Valium. Provided him with 20 minutes of cognitive behavioral therapy to help him identify his automatic negative thoughts, help him convert his negative thoughts to more positive thoughts to reduce depression, anxiety, and mood lability. Chart reviewed. Discussed with staff. Seen and assessed in his room. Stephani Granger M.D. DR: ABBY JOB#: [id number] CC:
[2019-03-28 12:00] VITALS: BP 125/82
--- NOTE | 2019-03-28 12:05 | Cardiac Electrophysiology PN ---
Assessment/Plan Assessment/Plan 1. Possible atrial fibrillation causing stroke. Was on Eliquis 5 mg b.i.d. that is changed to heparin subcutaneous. EKG and tele showed SR and echocardiogram showed Nl EF. Now off tele. 2. HTN , currently off antihypertensives. 3. Diabetes. 4. CVA with hemiplegia. MRI Impression: Positive for acute versus subacute lacunar infarct of the left luther radiata extending into the left basal ganglia. Presence of a fairly well-defined abnormality on recent CT scan indicates that this is subacute 5. Renal failure with creatinine of 1.5. 6. Anemia. Eliquis has been held. BILL RN Going to [facility] today Subjective Subjective Alert in NAD. No CP or SOB. Awaiting bed at [facility] Objective Last 24 Hour Vital Signs Date Time Temp Pulse Resp B/P (MAP) Pulse Ox O2 Delivery O2 Flow Rate FiO2 03/28/19 09:00 Room Air 03/28/19 08:00 98.9 99 16 143/81 (101) 95 03/28/19 04:00 98.4 88 20 125/70 (88) 03/28/19 00:00 98.7 87 18 114/68 (83) 03/27/19 23:03 84 16 92 Room Air 21 03/27/19 23:03 92 Room Air 21 03/27/19 21:00 Room Air 03/27/19 20:00 98.0 87 18 131/69 (89) 03/27/19 16:00 97.5 91 19 142/83 (102) 95 Intake and Output 03/27/19 03/28/19 19:00 07:00 Intake Total 1135 ml 400 ml Output Total 1200 ml 1000 ml Balance -65 ml -600 ml Intake Oral 480 ml IV Total 655 ml 400 ml Output Urine Total 1200 ml 1000 ml # Voids 2 Laboratory Tests Test 03/28/19 05:57 White Blood Count 10.2 K/UL (4.8-10.8) Red Blood Count 5.56 M/UL (4.70-6.10) Hemoglobin 15.4 G/DL (14.2-18.0) Hematocrit 47.4 % (42.0-52.0) Mean Corpuscular Volume 85 FL (80-99) Mean Corpuscular Hemoglobin 27.8 PG (27.0-31.0) Mean Corpuscular Hemoglobin Concent 32.5 G/DL (32.0-36.0) Red Cell Distribution Width 12.1 % (11.6-14.8) Platelet Count 325 K/UL (150-450) Mean Platelet Volume 6.6 FL (6.5-10.1) Neutrophils (%) (Auto) 72.1 % (45.0-75.0) Lymphocytes (%) (Auto) 14.7 % (20.0-45.0) L Monocytes (%) (Auto) 8.3 % (1.0-10.0) Eosinophils (%) (Auto) 3.5 % (0.0-3.0) H Basophils (%) (Auto) 1.4 % (0.0-2.0) Sodium Level 142 MMOL/L (136-145) Potassium Level 4.0 MMOL/L (3.5-5.1) Chloride Level 109 MMOL/L (98-107) H Carbon Dioxide Level 24 MMOL/L (21-32) Anion Gap 9 mmol/L (5-15) Blood Urea Nitrogen 22 mg/dL (7-18) H Creatinine 1.2 MG/DL (0.55-1.30) Estimat Glomerular Filtration Rate mL/min (>60) Glucose Level 92 MG/DL (74-106) Calcium Level 9.3 MG/DL (8.5-10.1) Microbiology Date/Time Source Procedure Growth Status 03/25/19 20:00 Sputum Gram Stain - Final Resulted 03/25/19 20:00 Sputum Culture - Preliminary Staphylococcus Aureus Yeast Species Resulted Objective HEAD AND SHOWS: No JVD. LUNGS: Clear. CARDIOVASCULAR: Regular S1 and S2 with no gallop or murmur, tachycardic ABDOMEN: Soft. EXTREMITIES: No pitting edema. Sabino Goncalves MD Mar 28, 2019 12:05
--- NOTE | 2019-03-28 12:43 | Pulmonology Progress Note ---
Assessment/Plan Problems: (1) Sepsis due to urinary tract infection (2) Cerebrovascular accident (CVA) (3) Hypertension (4) Diabetes mellitus (5) Episode of generalized weakness Assessment/Plan frustrated, feeling sad about his current condition. doing better no new complains pt/ot all meds/notes reviewed Subjective ROS Limited/Unobtainable: No Constitutional: Reports: no symptoms HEENT: Repors: no symptoms Respiratory: Reports: no symptoms Allergies: Coded Allergies: No Known Allergies (Unverified , 01/04/19) Objective Last 24 Hour Vital Signs Date Time Temp Pulse Resp B/P (MAP) Pulse Ox O2 Delivery O2 Flow Rate FiO2 03/28/19 09:00 Room Air 03/28/19 08:00 98.9 99 16 143/81 (101) 95 03/28/19 04:00 98.4 88 20 125/70 (88) 03/28/19 00:00 98.7 87 18 114/68 (83) 03/27/19 23:03 84 16 92 Room Air 21 03/27/19 23:03 92 Room Air 21 03/27/19 21:00 Room Air 03/27/19 20:00 98.0 87 18 131/69 (89) 03/27/19 16:00 97.5 91 19 142/83 (102) 95 Intake and Output 03/27/19 03/28/19 19:00 07:00 Intake Total 1135 ml 400 ml Output Total 1200 ml 1000 ml Balance -65 ml -600 ml Intake Oral 480 ml IV Total 655 ml 400 ml Output Urine Total 1200 ml 1000 ml # Voids 2 General Appearance: WD/WN HEENT: normocephalic, atraumatic Respiratory/Chest: chest wall non-tender, lungs clear Cardiovascular: normal peripheral pulses, normal rate Abdomen: normal bowel sounds, non distended Genitourinary: normal external genitalia Extremities: no clubbing Skin: no lesions Microbiology Date/Time Source Procedure Growth Status 03/25/19 20:00 Sputum Gram Stain - Final Resulted 03/25/19 20:00 Sputum Culture - Preliminary Staphylococcus Aureus Yeast Species Resulted Laboratory Tests 03/28/19 05:57: White Blood Count 10.2, Red Blood Count 5.56, Hemoglobin 15.4, Hematocrit 47.4, Mean Corpuscular Volume 85, Mean Corpuscular Hemoglobin 27.8, Mean Corpuscular Hemoglobin Concent 32.5, Red Cell Distribution Width 12.1, Platelet Count 325, Mean Platelet Volume 6.6, Neutrophils (%) (Auto) 72.1, Lymphocytes (%) (Auto) 14.7L, Monocytes (%) (Auto) 8.3, Eosinophils (%) (Auto) 3.5H, Basophils (%) ( Auto) 1.4, Sodium Level 142, Potassium Level 4.0, Chloride Level 109H, Carbon Dioxide Level 24, Anion Gap 9, Blood Urea Nitrogen 22H, Creatinine 1.2, Estimat Glomerular Filtration Rate , Glucose Level 92, Calcium Level 9.3 Current Medications Medications (Trade) Dose Ordered Sig/Amaya Route PRN Reason Start Time Stop Time Status Last Admin Dose Admin Acetaminophen (Tylenol) 650 mg Q4H PRN ORAL fever 03/26/19 18:00 04/21/19 17:59 Aspirin (Ecotrin) 81 mg DAILY ORAL 03/27/19 09:00 04/25/19 08:59 03/28/19 08:27 Dextrose (Dextrose 50%) 25 ml Q30M PRN IV Hypoglycemia 03/26/19 18:00 04/21/19 13:45 Dextrose (Dextrose 50%) 50 ml Q30M PRN IV hypoglycemia 03/26/19 18:00 04/21/19 13:59 Diazepam (Valium) 5 mg BEDTIME PRN ORAL For Anxiety 03/26/19 21:00 03/29/19 13:44 03/28/19 02:55 Docusate Sodium (Colace) 100 mg TID ORAL 03/27/19 09:00 04/26/19 08:59 03/28/19 12:27 Heparin Sodium (Porcine) (Heparin 5000 units/ml) 5,000 units EVERY 12 HOURS SUBQ 03/26/19 21:00 04/21/19 20:59 03/28/19 08:28 Insulin Aspart (NovoLOG) BEFORE MEALS AND HS SUBQ 03/26/19 21:00 04/21/19 16:29 03/27/19 21:12 Mineral Oil (Fleet's Mineral Oil Enema) 133 ml DAILYPRN PRN RECTAL Constipation 03/26/19 18:00 04/25/19 17:59 Morphine Sulfate (Morphine Sulfate) 2 mg Q4H PRN IVP Moderate Pain (Pain Scale 4-6) 03/26/19 18:00 03/29/19 17:59 Nitroglycerin (Ntg) 0.4 mg Q5M PRN SL Prn Chest Pain 03/26/19 18:00 04/21/19 13:44 Ondansetron HCl (Zofran) 4 mg Q6H PRN IVP Nausea & Vomiting 03/26/19 18:00 04/22/19 17:59 Pantoprazole (Protonix) 40 mg DAILY ORAL 03/27/19 09:00 04/23/19 08:59 03/28/19 08:27 Polyethylene Glycol (Miralax) 17 gm DAILYPRN PRN ORAL Constipation 03/26/19 18:00 04/22/19 17:59 Sodium Chloride 1,000 ml @ 50 mls/hr Q20H IV 03/26/19 18:00 04/24/19 11:59 03/28/19 03:00 Solifenacin (Vesicare) 10 mg DAILY ORAL 03/27/19 09:00 04/22/19 08:59 03/28/19 08:27 Tamsulosin HCl (Flomax) 0.4 mg BID ORAL 03/27/19 09:00 04/26/19 08:59 03/28/19 08:27 Temazepam (Restoril) 15 mg HSPRN PRN ORAL Insomnia 03/26/19 21:00 03/30/19 20:59 Angelita Alarcon MD Mar 28, 2019 12:43
--- NOTE | 2019-03-28 12:48 | Surgery Progress Note ---
Surgery Progress Note Subjective Additional Comments patient seen and examined at bedside states he wants more help and would like someone at bedside with him. states can eat with his left hand but would like someone to feed him otherwise able to tolerate diet but does not want to eat much no n/v/f/c no pain Objective Last 24 Hour Vital Signs Date Time Temp Pulse Resp B/P (MAP) Pulse Ox O2 Delivery O2 Flow Rate FiO2 03/28/19 09:00 Room Air 03/28/19 08:00 98.9 99 16 143/81 (101) 95 03/28/19 04:00 98.4 88 20 125/70 (88) 03/28/19 00:00 98.7 87 18 114/68 (83) 03/27/19 23:03 84 16 92 Room Air 21 03/27/19 23:03 92 Room Air 21 03/27/19 21:00 Room Air 03/27/19 20:00 98.0 87 18 131/69 (89) 03/27/19 16:00 97.5 91 19 142/83 (102) 95 I&O Intake and Output 03/27/19 03/28/19 19:00 07:00 Intake Total 1135 ml 400 ml Output Total 1200 ml 1000 ml Balance -65 ml -600 ml Intake Oral 480 ml IV Total 655 ml 400 ml Output Urine Total 1200 ml 1000 ml # Voids 2 Dressing: dry Wound: clean Cardiovascular: RSR Respiratory: clear Abdomen: soft, present bowel sounds, non-distended Extremities: no tenderness, no cyanosis Laboratory Tests Test 03/28/19 05:57 White Blood Count 10.2 K/UL (4.8-10.8) Red Blood Count 5.56 M/UL (4.70-6.10) Hemoglobin 15.4 G/DL (14.2-18.0) Hematocrit 47.4 % (42.0-52.0) Mean Corpuscular Volume 85 FL (80-99) Mean Corpuscular Hemoglobin 27.8 PG (27.0-31.0) Mean Corpuscular Hemoglobin Concent 32.5 G/DL (32.0-36.0) Red Cell Distribution Width 12.1 % (11.6-14.8) Platelet Count 325 K/UL (150-450) Mean Platelet Volume 6.6 FL (6.5-10.1) Neutrophils (%) (Auto) 72.1 % (45.0-75.0) Lymphocytes (%) (Auto) 14.7 % (20.0-45.0) L Monocytes (%) (Auto) 8.3 % (1.0-10.0) Eosinophils (%) (Auto) 3.5 % (0.0-3.0) H Basophils (%) (Auto) 1.4 % (0.0-2.0) Sodium Level 142 MMOL/L (136-145) Potassium Level 4.0 MMOL/L (3.5-5.1) Chloride Level 109 MMOL/L (98-107) H Carbon Dioxide Level 24 MMOL/L (21-32) Anion Gap 9 mmol/L (5-15) Blood Urea Nitrogen 22 mg/dL (7-18) H Creatinine 1.2 MG/DL (0.55-1.30) Estimat Glomerular Filtration Rate mL/min (>60) Glucose Level 92 MG/DL (74-106) Calcium Level 9.3 MG/DL (8.5-10.1) Plan Problems: (1) Diabetes mellitus (2) Sepsis due to urinary tract infection (3) Episode of generalized weakness (4) Weakness (5) UTI (urinary tract infection) (6) Hypertension (7) Chronic constipation (8) Dehydration (9) Renal failure (ARF), acute on chronic (10) Cerebrovascular accident (CVA) (11) Gastritis (12) Incontinence (13) MRSA (methicillin resistant Staphylococcus aureus) infection (14) MRSA pyemia (15) Multiple polyps of sigmoid colon (16) Decubitus skin ulcer Assessment & Plan: Pt presented on admission with non-blanchable erythema sacrum (L)3cm x (W)4cm. Tender when minimally palpated. Scrotal area is red. Non-blanchable erythema with fluctuance noted to L heel.Pt denied tenderness when minimally palpated. Non-blanchable erythema without fluctuance R heel. Non-tender when minimally palpated. Discussed with pt skin breakdown noted at present and pt was educated on wound prevention. Instructed pt to frequently reposition self in bed. Instructed pt on using side rails to shift weight. Instructed to avoid sliding against bed linens but to off-lift buttocks when repositioning.Pt also instructed on keeping heels floated off bed with pillows. Patient at high risk for developing worsening decubitus given recent deficit. he states difficult to move and reposition but will continue to try will have physical therapy work with patient Non-blanching erythema sacrum resolving. Less erythema noted. Non-tender when minimally palpated. Scrotal erythema noted. L heel resolving .L heel is fluctuant but blanchable and non-tender. Non-blanchable erythema with fluctuance R heel (L)3.3cm x (W)5cm. No new skin concerns noted. Re-educated pt to frequently turn while in bed.Both heels are floated with pillow. No new skin breakdown noted. Tx.Plan: Apply Moisture Barrier Paste to scrotum with each perineal care. Apply Moisture Barrier Paste to sacrum. Cover with Optifoam drsg. Change every 3 days and prn. Apply Cavilon Skin Barrier to both heels. Cover each heel with Optifoam drsg. Change every 7 days and prn. Assist with repositioning at least every 2hours or as tolerated. Off-load heels with pillow. Guru France Mar 28, 2019 12:48
--- NOTE | 2019-03-28 13:21 | Nephrology Progress Note ---
Assessment/Plan Problem List: (1) Renal failure (ARF), acute on chronic (2) Dehydration (3) UTI (urinary tract infection) (4) Hypertension Assessment Renal failure- mainly dehydration h/o anemia GERD CVA w/ R side deficit DM2 UTI Plan Hydrate- Antibiotics Monitor renal parameters avoid nephrotoxics Subjective ROS Limited/Unobtainable: No Constitutional: Reports: malaise Objective Objective Last 24 Hour Vital Signs Date Time Temp Pulse Resp B/P (MAP) Pulse Ox O2 Delivery O2 Flow Rate FiO2 03/28/19 12:00 97.9 96 17 125/82 (96) 96 03/28/19 09:00 Room Air 03/28/19 08:00 98.9 99 16 143/81 (101) 95 03/28/19 04:00 98.4 88 20 125/70 (88) 03/28/19 00:00 98.7 87 18 114/68 (83) 03/27/19 23:03 84 16 92 Room Air 21 03/27/19 23:03 92 Room Air 21 03/27/19 21:00 Room Air 03/27/19 20:00 98.0 87 18 131/69 (89) 03/27/19 16:00 97.5 91 19 142/83 (102) 95 Intake and Output 03/27/19 03/28/19 19:00 07:00 Intake Total 1135 ml 400 ml Output Total 1200 ml 1000 ml Balance -65 ml -600 ml Intake Oral 480 ml IV Total 655 ml 400 ml Output Urine Total 1200 ml 1000 ml # Voids 2 Laboratory Tests 03/28/19 05:57: White Blood Count 10.2, Red Blood Count 5.56, Hemoglobin 15.4, Hematocrit 47.4, Mean Corpuscular Volume 85, Mean Corpuscular Hemoglobin 27.8, Mean Corpuscular Hemoglobin Concent 32.5, Red Cell Distribution Width 12.1, Platelet Count 325, Mean Platelet Volume 6.6, Neutrophils (%) (Auto) 72.1, Lymphocytes (%) (Auto) 14.7L, Monocytes (%) (Auto) 8.3, Eosinophils (%) (Auto) 3.5H, Basophils (%) ( Auto) 1.4, Sodium Level 142, Potassium Level 4.0, Chloride Level 109H, Carbon Dioxide Level 24, Anion Gap 9, Blood Urea Nitrogen 22H, Creatinine 1.2, Estimat Glomerular Filtration Rate , Glucose Level 92, Calcium Level 9.3 Height (Feet): 5 Height (Inches): 10.00 Weight (Pounds): 170 General Appearance: no apparent distress Objective no change Devonte Zuniga MD Mar 28, 2019 13:21
--- NOTE | 2019-03-28 13:24 | Infectious Diseases Prog Note ---
Assessment/Plan Assessment/Plan Assessment: Probable UTI (+hematuria, leukocytosis), sp Rx -ucx Neg -Bcx Neg Afebrile Mild leukocytosis; resolved -CXR: Chronic lung disease. No change -sp cx oral contamination; repaet sp cx S.aureus (sensi p)l likely contaminant Generalized weakness Acute vs subacute lacunar infarct- ?embolic source- suspect 2ry to Afib -MRI brain: Positive for acute versus subacute lacunar infarct of the left luther radiata extending into the left basal ganglia. Presence of a fairly well- defined abnormality on recent CT scan indicates that this is subacute. Tiny acute versus subacute infarcts of the left posterior tobar-white junction and of the right thalamus. Multiplicity of infarcts indicates embolic etiology. Distribution over multiple vascular territories suggests cardiac origin. It is possible that all of these originate from the posterior circulation, but the left-sided infarct is more likely from the anterior circulation More questionable diffusion restriction extending into the bilateral cerebral peduncles. Suspect that these findings are artifactual. Negative for acute intracranial bleed or mass effect -CT head: 1.4 cm lacunar infarct in the left periventricular white matter probably old. Correlate clinically. Moderate atrophy of the brain. Evidence of chronic small vessel disease involving white matter tracts. -2d Echo: no thrombus, no vegetations CATHERINE; improving Afib anemia GERD CVA w/ R side deficit DM2 Plan: -Continue to monitor off abx -03/27 SP Ceftriaxone #5 -03/23 SP IV Vancomycin #2, CEfepime #2 -f/u cx -Monitor CBC/CMP, temperatures -Cards f/u -CXR Thank you for this consultation. Will continue to follow along with you. Discussed with RN. Subjective Allergies: Coded Allergies: No Known Allergies (Unverified , 01/04/19) Subjective afebrile leukocytosis resolved Objective Vital Signs Last 24 Hour Vital Signs Date Time Temp Pulse Resp B/P (MAP) Pulse Ox O2 Delivery O2 Flow Rate FiO2 03/28/19 12:00 97.9 96 17 125/82 (96) 96 03/28/19 09:00 Room Air 03/28/19 08:00 98.9 99 16 143/81 (101) 95 03/28/19 04:00 98.4 88 20 125/70 (88) 03/28/19 00:00 98.7 87 18 114/68 (83) 03/27/19 23:03 84 16 92 Room Air 21 03/27/19 23:03 92 Room Air 21 03/27/19 21:00 Room Air 03/27/19 20:00 98.0 87 18 131/69 (89) 03/27/19 16:00 97.5 91 19 142/83 (102) 95 Height (Feet): 5 Height (Inches): 10.00 Weight (Pounds): 170 Objective HEAD AND SHOWS: No JVD. LUNGS: Clear. CARDIOVASCULAR: Regular S1 and S2 with no gallop or murmur, tachycardic ABDOMEN: Soft. EXTREMITIES: No pitting edema. Microbiology Date/Time Source Procedure Growth Status 03/25/19 20:00 Sputum Gram Stain - Final Resulted 03/25/19 20:00 Sputum Culture - Preliminary Staphylococcus Aureus Yeast Species Resulted Laboratory Tests Test 03/28/19 05:57 White Blood Count 10.2 K/UL (4.8-10.8) Red Blood Count 5.56 M/UL (4.70-6.10) Hemoglobin 15.4 G/DL (14.2-18.0) Hematocrit 47.4 % (42.0-52.0) Mean Corpuscular Volume 85 FL (80-99) Mean Corpuscular Hemoglobin 27.8 PG (27.0-31.0) Mean Corpuscular Hemoglobin Concent 32.5 G/DL (32.0-36.0) Red Cell Distribution Width 12.1 % (11.6-14.8) Platelet Count 325 K/UL (150-450) Mean Platelet Volume 6.6 FL (6.5-10.1) Neutrophils (%) (Auto) 72.1 % (45.0-75.0) Lymphocytes (%) (Auto) 14.7 % (20.0-45.0) L Monocytes (%) (Auto) 8.3 % (1.0-10.0) Eosinophils (%) (Auto) 3.5 % (0.0-3.0) H Basophils (%) (Auto) 1.4 % (0.0-2.0) Sodium Level 142 MMOL/L (136-145) Potassium Level 4.0 MMOL/L (3.5-5.1) Chloride Level 109 MMOL/L (98-107) H Carbon Dioxide Level 24 MMOL/L (21-32) Anion Gap 9 mmol/L (5-15) Blood Urea Nitrogen 22 mg/dL (7-18) H Creatinine 1.2 MG/DL (0.55-1.30) Estimat Glomerular Filtration Rate mL/min (>60) Glucose Level 92 MG/DL (74-106) Calcium Level 9.3 MG/DL (8.5-10.1) Current Medications Medications (Trade) Dose Ordered Sig/Amaya Route PRN Reason Start Time Stop Time Status Last Admin Dose Admin Acetaminophen (Tylenol) 650 mg Q4H PRN ORAL fever 03/26/19 18:00 04/21/19 17:59 Aspirin (Ecotrin) 81 mg DAILY ORAL 03/27/19 09:00 04/25/19 08:59 03/28/19 08:27 Dextrose (Dextrose 50%) 25 ml Q30M PRN IV Hypoglycemia 03/26/19 18:00 04/21/19 13:45 Dextrose (Dextrose 50%) 50 ml Q30M PRN IV hypoglycemia 03/26/19 18:00 04/21/19 13:59 Diazepam (Valium) 5 mg BEDTIME PRN ORAL For Anxiety 03/26/19 21:00 03/29/19 13:44 03/28/19 02:55 Docusate Sodium (Colace) 100 mg TID ORAL 03/27/19 09:00 04/26/19 08:59 03/28/19 12:27 Heparin Sodium (Porcine) (Heparin 5000 units/ml) 5,000 units EVERY 12 HOURS SUBQ 03/26/19 21:00 04/21/19 20:59 03/28/19 08:28 Insulin Aspart (NovoLOG) BEFORE MEALS AND HS SUBQ 03/26/19 21:00 04/21/19 16:29 03/27/19 21:12 Mineral Oil (Fleet's Mineral Oil Enema) 133 ml DAILYPRN PRN RECTAL Constipation 03/26/19 18:00 04/25/19 17:59 Morphine Sulfate (Morphine Sulfate) 2 mg Q4H PRN IVP Moderate Pain (Pain Scale 4-6) 03/26/19 18:00 03/29/19 17:59 Nitroglycerin (Ntg) 0.4 mg Q5M PRN SL Prn Chest Pain 03/26/19 18:00 04/21/19 13:44 Ondansetron HCl (Zofran) 4 mg Q6H PRN IVP Nausea & Vomiting 03/26/19 18:00 04/22/19 17:59 Pantoprazole (Protonix) 40 mg DAILY ORAL 03/27/19 09:00 04/23/19 08:59 03/28/19 08:27 Polyethylene Glycol (Miralax) 17 gm DAILYPRN PRN ORAL Constipation 03/26/19 18:00 04/22/19 17:59 Sodium Chloride 1,000 ml @ 50 mls/hr Q20H IV 03/26/19 18:00 04/24/19 11:59 03/28/19 03:00 Solifenacin (Vesicare) 10 mg DAILY ORAL 03/27/19 09:00 04/22/19 08:59 03/28/19 08:27 Tamsulosin HCl (Flomax) 0.4 mg BID ORAL 03/27/19 09:00 04/26/19 08:59 03/28/19 08:27 Temazepam (Restoril) 15 mg HSPRN PRN ORAL Insomnia 03/26/19 21:00 03/30/19 20:59 Daly Sánchez M.D. Mar 28, 2019 13:24
--- NOTE | 2019-03-28 13:54 | NUR ---
CASE MANAGEMENT:REVIEW 03/28/19 SI: SEPSIS D/T UTI. DM. WEAKNESS 97.9 96 17 125/82 96% ON RA BUN+22 IS:IVF@50/HR ASA PO QD PROTONIX PO QD VESICARE PO QD FLOMAX PO BID VALIUM PO QHS HEPARIN SQ Q12 :MED/SURG STATUS 4 EAST DCP: FROM [facility] CONV PLAN: REFERRED TO [facility]
--- NOTE | 2019-03-28 14:03 | NUR ---
DISCHARGE PLAN REFERRED TO [facility] AREmilee PINEDA FROM ARU IS COMING TO ASSESS PATIENT IN PERSON
--- NOTE | 2019-03-28 15:35 | Neurology Progress Note ---
Interim History Interim History Interim History Mr. Pfeiffer feels about the same as yesterday. The right sided weakness is about the same. He right sided ptosis is much better. The sensations are normal on the right. He is able to communicate well. He denies any new neurologic problems. He is eager to start rehab. Review of Systems Neuro Review of Systems Benign. Objective Physical Exam Last Vital Signs Date Time Temp Pulse Resp B/P (MAP) Pulse Ox O2 Delivery O2 Flow Rate FiO2 03/28/19 12:00 97.9 96 17 125/82 (96) 96 03/28/19 09:00 Room Air 03/28/19 07:39 21 03/26/19 19:40 3.0 Laboratory Tests Test 03/28/19 05:57 White Blood Count 10.2 K/UL (4.8-10.8) Red Blood Count 5.56 M/UL (4.70-6.10) Hemoglobin 15.4 G/DL (14.2-18.0) Hematocrit 47.4 % (42.0-52.0) Mean Corpuscular Volume 85 FL (80-99) Mean Corpuscular Hemoglobin 27.8 PG (27.0-31.0) Mean Corpuscular Hemoglobin Concent 32.5 G/DL (32.0-36.0) Red Cell Distribution Width 12.1 % (11.6-14.8) Platelet Count 325 K/UL (150-450) Mean Platelet Volume 6.6 FL (6.5-10.1) Neutrophils (%) (Auto) 72.1 % (45.0-75.0) Lymphocytes (%) (Auto) 14.7 % (20.0-45.0) L Monocytes (%) (Auto) 8.3 % (1.0-10.0) Eosinophils (%) (Auto) 3.5 % (0.0-3.0) H Basophils (%) (Auto) 1.4 % (0.0-2.0) Sodium Level 142 MMOL/L (136-145) Potassium Level 4.0 MMOL/L (3.5-5.1) Chloride Level 109 MMOL/L (98-107) H Carbon Dioxide Level 24 MMOL/L (21-32) Anion Gap 9 mmol/L (5-15) Blood Urea Nitrogen 22 mg/dL (7-18) H Creatinine 1.2 MG/DL (0.55-1.30) Estimat Glomerular Filtration Rate mL/min (>60) Glucose Level 92 MG/DL (74-106) Calcium Level 9.3 MG/DL (8.5-10.1) Neurologic Exam Objective PHYSICAL EXAMINATION: GENERAL: He is a well-developed, well-nourished, pleasant gentleman, lying in bed, in no acute distress. HEAD: Normocephalic and atraumatic. EENT: Examination benign. NECK: No neck rigidity was observed. NEUROLOGICAL EXAMINATION: MENTAL STATUS EXAMINATION: He was awake and alert. He was oriented to person, place, and time. He was able to recall 3/3 words immediately, and could remember them in 1 minute and 3 minutes. He was able to remember Presidents Trump and Obama spontaneously, but needed hints to remember through [employer]. His mathematical skills were good. His visuospatial function was minimally impaired. SPEECH: He had no dysarthria. LANGUAGE: He had an anomia for low-frequency words. CRANIAL NERVE EXAMINATION: II: The visual quintanilla were intact. He however had poor vision in the right eye in addition. III, IV & : The external ocular movements were full. The pupils 3 mm in diameter and reactive sluggishly to light. He had (mild 2 mm of) ptosis on the right side. V: He had normal facial sensations and the temporales, masseters, and pterygoids functioned normally. VII: He had a right seventh central facial paresis. VIII: He was able to hear well bilaterally and had no nystagmus. IX: The palate moved symmetrically on phonation. X: He had no hoarseness of voice. XI: The sternocleidomastoids and trapezii functioned normally. XII: The tongue was in the midline without any fasciculations or atrophy. MOTOR SYSTEM: The tone was flaccid in the right upper extremity and diminished in the right lower extremity. Examination of muscle mass revealed no focal wasting. Examination of power revealed G 5/5 power on the left side. On the right side, he had G 0/5 power except for G 3/5 power in the finger flexors, finger extensors and quadriceps, G 2/5 in the biceps, triceps, ankle dorsiflexors and ankle plantar flexors. SENSORY EXAMINATION: He had intact sensations to pinprick, light touch, and graphesthesia. COORDINATION: He performed well on [id number] and jptp-vi-[id number] testing on the left side, but could not perform on the right side. REFLEXES: 2++ on the right and 1+ on the left at the biceps, triceps, brachioradialis, knees, 0 at both ankles. The plantar response was extensor on the right and flexor on the left. STANCE & GAIT: Could not be tested. Impression/Recommendations Diagnostic Impression 1. Mr. Kemar Pfeiffer is an 83-year-old right-handed, gentleman, with a long history of hypertension, diabetes mellitus, benign prostatic hypertrophy , and gait problems related to spinal stenosis who on 03/11/2019 noticed some problems with walking because his right leg would not carry him too well. On , he became significantly more weak on the right side with involvement of his face , upper and lower extremities. He was taken to another hospital, evaluated there, and was told that he had a stroke. He was kept there for about a week and then [facility] where he started to feel palpitations and as a result of that was hospitalized at [facility] on 2018. 2. He feels about the same as yesterday. The right sided weakness is about the same. He right sided ptosis is much better. The sensations are normal on the right. He is able to communicate well. He denies any new neurologic problems. He is eager to start rehab. 3. On neurological examination, at this time, he is fully oriented. He has problems with recent and remote memory, problems with visuospatial function, and a mild anomia. The right-sided ptosis is significantly better. He has poor vision in the right eye. He in addition has a mild right seventh central facial paresis, a right hemiparesis which is similar to yesterday, brisker reflexes on the right side compared to the left, and an extensor plantar response on the right side. 4. Laboratory data on my initial evaluation revealed that his WBC count was elevated to 14,800, his hemoglobin was at 16.0. His chemistry panel revealed a BUN elevated at 38 with a creatinine of 1.5. His glucose was high at 128. His proBNP was elevated at 641. His albumin was low at 2.5. His urinalysis revealed 1+ leukocyte esterase, too numerous to count red blood cells, and 0-2 white blood cells per high-power field with a moderate amount of bacteria in the urine. 5. Further laboratory tests have revealed a normal lipid panel but a low Vitamin B12 level at 362. The ammonia is also minimally elevated at 37. 6. The CT scan of the brain without contrast revealed atrophy, deep white matter changes, and a recent deep white matter infarct involving the left luther radiata. 7. The MRI of the brain done on 03/24/19 revealed recent infarcts in the left luther radiata and the right parietal deep white matter, and multiple older inrarcts in multiple vacular territories. 8. The patient's history, neurological examination, laboratory data, and imaging studies are most consistent with a recent left luther radiata infarct leading to severe right hemiparesis. The most likely etiology for the patient' s cerebrovascular disease is hypertensive/diabetic cerebrovascular disease. The patient has also been noted to have atrial fibrillation in the past and was on Eliquis which had recently been stopped. The cardiac arrhythmia may may also be responsible for his multiple strokes. Recommendations 1. Continue present management. 2. Treatment of high blood pressure with a goal of < 120/80 at all times in the near future. 3. Strict blood sugar control with the name of hemoglobin A1c <6%. 4. Continue ASA 81 mg q day and restart anticoagulation. 5. Await Carotid Duplex. 6. Treatment of cardiac arrhythmia per Dr. Goncalves. 7. Rehabilitate the patient with the help of physical, occupational, and speech and language therapy. 8. Agree with acute rehab. Huan Estrada M.D., M.S.P.H. Huan Estrada MD Mar 28, 2019 15:35
[2019-03-28 16:00] VITALS: BP 140/72
--- NOTE | 2019-03-28 16:04 | General Progress Note ---
Assessment/Plan Problem List: (1) UTI (urinary tract infection) ICD Codes: N39.0 - Urinary tract infection, site not specified SNOMED: 66338933 (2) Hypertension ICD Codes: I10 - Essential (primary) hypertension SNOMED: 33811208 (3) Chronic constipation ICD Codes: K59.09 - Other constipation SNOMED: 619524916 (4) Weakness ICD Codes: R53.1 - Weakness SNOMED: 02720584 (5) Diabetes mellitus ICD Codes: E11.9 - Type 2 diabetes mellitus without complications SNOMED: 68835272 (6) Episode of generalized weakness ICD Codes: R53.1 - Weakness SNOMED: 74198707 Status: stable, progressing Assessment/Plan: pt diet abx cbc bmp am dc to [facility] Subjective Constitutional: Reports: weakness Allergies: Coded Allergies: No Known Allergies (Unverified , 01/04/19) All Systems: reviewed and negative except above Subjective sl anxious in bed Objective Last 24 Hour Vital Signs Date Time Temp Pulse Resp B/P (MAP) Pulse Ox O2 Delivery O2 Flow Rate FiO2 03/28/19 12:00 97.9 96 17 125/82 (96) 96 03/28/19 09:00 Room Air 03/28/19 08:00 98.9 99 16 143/81 (101) 95 03/28/19 07:39 88 20 95 Room Air 21 03/28/19 07:35 95 Room Air 21 03/28/19 04:00 98.4 88 20 125/70 (88) 03/28/19 00:00 98.7 87 18 114/68 (83) 03/27/19 23:03 84 16 92 Room Air 21 03/27/19 23:03 92 Room Air 21 03/27/19 21:00 Room Air 03/27/19 20:00 98.0 87 18 131/69 (89) Intake and Output 03/27/19 03/28/19 19:00 07:00 Intake Total 1135 ml 400 ml Output Total 1200 ml 1000 ml Balance -65 ml -600 ml Intake Oral 480 ml IV Total 655 ml 400 ml Output Urine Total 1200 ml 1000 ml # Voids 2 Laboratory Tests 03/28/19 05:57: White Blood Count 10.2, Red Blood Count 5.56, Hemoglobin 15.4, Hematocrit 47.4, Mean Corpuscular Volume 85, Mean Corpuscular Hemoglobin 27.8, Mean Corpuscular Hemoglobin Concent 32.5, Red Cell Distribution Width 12.1, Platelet Count 325, Mean Platelet Volume 6.6, Neutrophils (%) (Auto) 72.1, Lymphocytes (%) (Auto) 14.7L, Monocytes (%) (Auto) 8.3, Eosinophils (%) (Auto) 3.5H, Basophils (%) ( Auto) 1.4, Sodium Level 142, Potassium Level 4.0, Chloride Level 109H, Carbon Dioxide Level 24, Anion Gap 9, Blood Urea Nitrogen 22H, Creatinine 1.2, Estimat Glomerular Filtration Rate , Glucose Level 92, Calcium Level 9.3 Height (Feet): 5 Height (Inches): 10.00 Weight (Pounds): 170 General Appearance: lethargic EENT: normal ENT inspection Neck: normal alignment Cardiovascular: normal peripheral pulses, normal rate, regular rhythm Respiratory/Chest: chest wall non-tender, lungs clear, normal breath sounds Abdomen: normal bowel sounds, non tender, soft Extremities: normal inspection Edema: no edema noted Arm (L), no edema noted Arm (R), no edema noted Leg (L), no edema noted Leg (R), no edema noted Pedal (L), no edema noted Pedal (R), no edema noted Generalized Neurologic: responsive, motor weakness Skin: normal pigmentation, warm/dry Chris Tipton DO Mar 28, 2019 16:04
--- NOTE | 2019-03-28 16:23 | Diagnostic Imaging Report ---
Indication: Cough Technique: One view of the chest Comparison: 03/22/2019 Findings: The heart is borderline enlarged. The aorta is tortuous and ectatic. Chronic appearing interstitial opacities are seen bilaterally. No definite acute infiltrates, effusions, or congestion. No significant interim change Impression: Borderline cardiomegaly No definite acute process
--- NOTE | 2019-03-28 16:34 | NUR ---
DISCHARGE PLANNED PATIENT HAS BEEN ACCEPTED TO [facility] ARU ROOM NUMBER WILL BE GIVEN TO NURSE ONCE SHE CALLS AND GIVES REPORT T:[phone] FOR NURSE NURSE REPORT [facility] HAS BEEN ARRANGED FOR 1800 [employer] CALLED AND NOTIFIED BOARD AND CARE OF PATIENT'S DESTINATION
[2019-03-28] MEDS ORDERED: ASPIR 8181 MG ORAL (17:55)
[2019-03-28] MEDS ORDERED: ACETAMINOPHEN160 MG ORAL (17:55)
[2019-03-28] MEDS ORDERED: HEPARIN SO5000 UNIT2 SUBQ (17:56)
[2019-03-28] MEDS ORDERED: NOVOLOG100 UNIT/4 SQ (17:57)
[2019-03-28] MEDS ORDERED: MINERAL OIL EN133 ML RC (17:58)
[2019-03-28] MEDS ORDERED: MORPHINE 22 MG/1 ML IV (18:00)
[2019-03-28] MEDS ORDERED: MORPHINE SU4 MG/1 ML IJ (18:00)
[2019-03-28] MEDS ORDERED: ZOFRAN 4 MG4 MG/2 ML IV (18:02)
--- NOTE | 2019-03-28 18:57 | NUR ---
NURSE NOTES: Pt has discharge order. all discharge assessments and instructions done and pt verbally confirmed to understand all. pt is stable. all hospital medications printed out and will sent to [facility]. Report given to [facility]. pt has lozano cath in place and running well pt has intact iv access RFA 22G SL. TANIA asked me to send pt with iv access. pt has signed polst DNR/DNI sent to [facility]. copy is in the chart. all belongings are with pt and he signed belongings paper. pt's sister KIRSTIE is aware. wound care pictures taken and uploaded. waiting for ambulance to [facility] pt. will continue t6o monitor.
--- NOTE | 2019-03-28 19:34 | NUR ---
HAND-OFF: Report given to BRYAN PETERSEN.
[2019-03-28] MEDS ORDERED: 1/2 NS 1000ml IV ONE (20:54)
--- NOTE | 2019-03-28 21:00 | NUR ---
NURSE NOTES: Patient discharged around 2054 via ambulance to [facility]. Patient's belongings checked and accounted for. Patient's wallet was brought up from the safe by the nursing supervisor wrapping room. Checked dollar amount at bedside with the patient with the patient's receipt as a reference. Charge nurse at the receiving facility requested IV access per AM nurse; right FA IV 22g still intact up on discharge. Patient is awake and alert x4 and stable. No signs of distress or SOB. Catheter is intact and draining yellow urine. Patient was transferred by lillian.
--- NOTE | 2019-03-29 12:19 | Discharge Summary ---
Discharge Summary Discharge Summary _ DATE OF ADMISSION: 03/22/2019 DATE OF DISCHARGE: 03/28/2019 DISCHARGED BY: Dr Tipton REASON FOR ADMISSION: 83 years old male with past medical history of diabetes mellitus, hypertension, GERD, history of prior CVA with right-sided deficit, anemia, [facility] with report of generalized weakness. Patient apparently sustained a reported stroke in the beginning of the month. Patient denied chest pain , shortness of breath . He denied headache , but he was unable to provide significant input as to regarding his history. Upon evaluation vital signs appeared to be stable. Pulse oximetry on oxygen 2 L via nasal cannula was 91%. Laboratory work-up revealed leukocytosis WBC 14.6, stable hemoglobin and hematocrit. Stable electrolytes. Lactic acid 0.9. BUN 32, creatinine 1.3. Stable LFT. Troponin 0.006. Pro BNP 641. Albumin 2.6. Urinalysis revealed evidence of pyuria and +1 leukocyte esterase. EKG revealed sinus rhythm with right bundle branch block, no acute ischemic changes Chest x-ray revealed no acute cardiopulmonary pathology. Chronic lung disease noted. CT of the head demonstrated 1.4 cm lacunar infarct in the left periventricular white matter probably old. Moderate atrophy of the brain. Evidence of chronic small vessel disease . involving white matter tracts. Patient subsequently admitted to telemetry floor for further management CONSULTANTS: shorts sifter Dr. Burden neurologist Dr. Estrada pulmonary Dr. Alarcon ID specialist Dr. Sánchez painter assistant Dr. Zuniga surgery Dr. [place] psychiatrist Dr. Granger [facility] COURSE: Patient admitted to telemetry floor. Property Officer followed for palpitation. Per shorts sifter , patient atrial fibrillation , which could possibly cause a stroke. Patient was on Eliquis which was stopped . Patient subsequently undergone EKG and echocardiogram. Echocardiogram revealed preserved ejection fraction 55 to 60% with no evidence of left ventricular hypertrophy. No evidence of wall motion abnormality. Right ventricular systolic pressure of 37 consistent with mild pulmonary hypertension. Mild aortic regurgitation. Repeated EKG showed normal sinus rhythm with right bundle branch block. Serial troponin were negative. EKG revealed no acute ischemic changes. Patient was ruled out for acute myocardial infarction. Lipid panel was stable. DVT prophylaxis with heparin and antiplatelet therapy with aspirin continued. No evidence of atrial fibrillation on monitor. Neurologist follow. CT scan of the brain without contrast revealed atrophy, deep white matter changes, and a recent deep white matter infarct involving the left luther radiata. MRI of the brain revealed recent infarcts in the left luther radiata in the right parietal deep white matter, multiply older infarcts in multiple vascular territories noted. Per neurologist, the patient's history, neurological examination, laboratory data and imaging studies were most consistent with a recent left luther radiata infarct, leading to severe right hemiparesis. The most likely etiology of the patient's cerebrovascular disease was hypertensive/diabetic cerebrovascular disease. Patient also apparently had history of atrial fibrillation in the past and was on Eliquis , which recently had been stopped. Cardiac arrhythmia may also be responsible for multiply strokes. Patient was continued on antiplatelet therapy with aspirin. Neurologist recommended to restart anticoagulation with Eliquis as per cardiology discretion. No evidence of atrial fibrillation on telemetry. Carotid duplex was essentially negative. Infectious disease specialist followed. Patient probably had urinary tract infection , as well as hematuria and leukocytosis. Blood cultures were negative. Urine cultures were negative. Initial sputum sputum culture was negative. Follow-up sputum culture revealed MRSA ,likely contaminant as per ID specialist. Mild leukocytosis resolved. Patient completed treatment for urinary tract infection. Patient remained afebrile, leukocytosis resolved. Patient remained afebrile, leukocytosis resolved. Infectious disease specialist recommended to keep patient off antibiotics. Blood sugar was managed with sliding scale of insulin. Aviation Electronic Warfare Operator followed. Patient initially was on the IV fluids. Renal parameters and electrolytes were closely monitored. Electrolytes corrected as needed. Nephrotoxins were avoided. BUN from 32 down to 22 and creatinine from 1.5 down to 1.2. GI prophylaxis provided. Pain management was addressed as needed. Bowel regimen instituted. Supportive care provided. Bedside swallow evaluation was done. High risk for aspiration noted. Patient started on diet with texture as recommended by speech therapist recommendation with strict aspiration precaution. Fall precaution maintained. Patient was working with physical therapist. Surgeon seen and evaluated patient. Patient presented on admission with non-blanchable erythema of the sacral area . Multiply non-blanchable erythema over other parts of the body noted as well , but no open wounds. Wound care provided as per surgeon recommendation. Continue wound care at the transfer facility. Psychiatrist seen and evaluated patient. Psychiatrist diagnosed patient with depressive disorder, mild, recurrent, with psychotic features. Psychiatric medication regimen optimized as per psychiatrist. Cognitive behavioral therapy provided. Patient clinically stabilized and was ready for transfer to acute rehabilitation unit at [facility] for further rehabilitation. FINAL DIAGNOSES: Subacute lacunar infarct left luther radiata with right hemiparesis Possible atrial fibrillation causing stroke Leukocytosis-resolved Probable UTI-s/p treatment Acute kidney injury on chronic renal disease Dehydration Chronic lung disease Mild pulmonary hypertension Hypertension Diabetes mellitus History of atrial fibrillation BPH History of lumbar discectomy GERD Depressive disorder, mild, recurrent with psychotic features Decubitus skin ulcer /nonblanchable erythema at multiple sites ,-present on admission DISCHARGE MEDICATIONS: See Medication Reconciliation list. DISCHARGE INSTRUCTIONS: Patient was transferred to acute rehabilitation center at [facility]. Krystal Sherman NP Mar 29, 2019 12:19
== END 2019-03-28 20:55 | disposition short-term general hospital (02) | DRG 65 ==
LOC: EDBD 12:46 → EDUNIT# 12:46 → EDBEDREQ 13:14 → EMR 13:34 → 4E 13:58 → EDBEDREQ 17:26 → 2E 03-23 18:45 → 4E 03-26 17:54
DX: I63.81 Other cerebral infarction due to occlusion or stenosis of small artery (principal); N39.0 Urinary tract infection, site not specified; N17.9 Acute kidney failure, unspecified; G81.91 Hemiplegia, unspecified affecting right dominant side; F33.1 Major depressive disorder, recurrent, moderate; Z86.73 Personal history of transient ischemic attack (TIA), and cerebral infarction without residual deficits; Z79.4 Long term (current) use of insulin; I48.91 Unspecified atrial fibrillation; I12.9 Hypertensive chronic kidney disease with stage 1 through stage 4 chronic kidney disease, or unspecified chronic kidney disease; E11.22 Type 2 diabetes mellitus with diabetic chronic kidney disease; N18.9 Chronic kidney disease, unspecified; E86.0 Dehydration; J98.4 Other disorders of lung; I27.20 Pulmonary hypertension, unspecified; L89.90 Pressure ulcer of unspecified site, unspecified stage; N40.0 Benign prostatic hyperplasia without lower urinary tract symptoms; K21.9 Gastro-esophageal reflux disease without esophagitis; F41.1 Generalized anxiety disorder; K29.70 Gastritis, unspecified, without bleeding; B95.62 Methicillin resistant Staphylococcus aureus infection as the cause of diseases classified elsewhere; R32 Unspecified urinary incontinence; R26.9 Unspecified abnormalities of gait and mobility; Z79.01 Long term (current) use of anticoagulants; H02.401 Unspecified ptosis of right eyelid; F29 Unspecified psychosis not due to a substance or known physiological condition
CPT/HCPCS: 36415; 70450; 70551; 71045; 80048; 80053; 80061; 81001; 81003; 82140; 82550; 82553; 82607; 82746; 82962; 82977; 83036; 83605; 83735; 83880; 84100; 84443; 84484; 84550; 85025; 85610; 85651; 85730; 86140; 86592; 87040; 87070; 87081; 87086; 87181; 87205; 93005; 93306; 93880; 94664; 99285; J1815

== ENCOUNTER 2020-08-17 17:22 | Inpatient (IN) | payer MEDICARE, MEDICAID ==
[~2020-08-17] VITALS: Ht 172.7 cm; Wt 73.9 kg
[~2020-08-17 17:22] MED LIST changes: +ACETAMINOPHEN160 MG ORAL; +ASPIR 8181 MG ORAL; +HEPARIN SO5000 UNIT2 SUBQ; +MINERAL OIL EN133 ML RC; +MORPHINE 22 MG/1 ML IV; +MORPHINE SU4 MG/1 ML IJ; +NOVOLOG100 UNIT/4 SQ; +VESICARE10 MG ORAL; +ZOFRAN 4 MG4 MG/2 ML IV
--- NOTE | 2020-08-17 17:27 | Emergency Room Report ---
History of Present Illness General Source: Patient Present Illness HPI Patient is an 84-year-old male sent in from [facility] for decreased oxygen saturation. Patient recent positive coronavirus testing at the facility. Been started on supplemental oxygen by ambulance. Patient is currently on 5 L. Oxygen saturation had dropped into the 80s. History is markedly limited by poor historian. 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 Review of Systems All Other Systems: limited - Limited by poor historian Physical Exam Sp02 EP Interpretation: reviewed, normal General Appearance: normal inspection, alert, GCS 15, non-toxic, Chronically Ill Head: atraumatic ENT: normal ENT inspection, hearing grossly normal, normal voice Neck: normal inspection, full range of motion, supple, no bony tend Respiratory: normal inspection, lungs clear, normal breath sounds, no respiratory distress, no retraction, no wheezing Cardiovascular #1: regular rate, rhythm, no edema Gastrointestinal: normal inspection, normal bowel sounds, non tender, soft, no guarding, no hernia Genitourinary: no CVA tenderness Musculoskeletal: normal inspection, back normal, normal range of motion Neurologic: alert, oriented x3, motor weakness, responsive, speech normal Psychiatric: normal inspection, judgement/insight normal, mood/affect normal Skin: no rash Medical Decision Making Diagnostic Impression: Primary Impression: 2019 novel coronavirus detected Additional Impressions: Hypoxia CVA, old, hemiparesis ER Course Patient presented for desaturation. Differential diagnosis included but was not limited to pneumonia, coronavirus infection, sepsis, pulmonary embolism among others. Because of complexity of patient's case laboratory tests and imaging studies were ordered.Started on IV fluids as well as IV steroids. Patient was recently diagnosed with coronavirus infection at his facility. Chest x-ray 1 view interpreted by me showed enlarged cardiac silhouette with diffuse patchy infiltrates. Chest x-ray suggests coronavirus pneumonia. Patient was maintained on supplemental oxygen. Dr. Chris Tipton was contacted for inpatient management due to primary care physician. Labs Test 08/17/20 18:19 08/18/20 05:00 Prothrombin Time 12.6 SEC (9.30-11.50) Prothromb Time International Ratio 1.2 (0.9-1.1) Activated Partial Thromboplast Time 40 SEC (23-33) D-Dimer 0.30 mg/L FEU (0.00-0.49) Lactic Acid Level 1.50 mmol/L (0.4-2.0) Uric Acid 7.5 MG/DL (2.6-7.2) Magnesium Level 2.2 MG/DL (1.8-2.4) Ferritin 377 NG/ML (8-388) Total Bilirubin 0.2 MG/DL (0.2-1.0) Aspartate Amino Transf (AST/SGOT) 16 U/L (15-37) Alanine Aminotransferase (ALT/SGPT) < 6 U/L (12-78) Alkaline Phosphatase 83 U/L (46-116) Lactate Dehydrogenase 162 U/L (81-234) Total Creatine Kinase 82 U/L (26-308) Creatine Kinase MB 1.4 NG/ML (0.0-3.6) Creatine Kinase MB Relative Index 3.1 Troponin I 0.018 ng/mL (0.000-0.056) C-Reactive Protein, Quantitative < 0.4 mg/dL (0.00-0.90) Pro-B-Type Natriuretic Peptide 1056 pg/mL (0-125) Total Protein 6.6 G/DL (6.4-8.2) Globulin 4.1 g/dL Albumin/Globulin Ratio 0.6 (1.0-2.7) Lipase 167 U/L (73-393) White Blood Count 5.1 K/UL (4.8-10.8) Red Blood Count 6.01 M/UL (4.70-6.10) Hemoglobin 16.1 G/DL (14.2-18.0) Hematocrit 48.0 % (42.0-52.0) Mean Corpuscular Volume 80 FL (80-99) Mean Corpuscular Hemoglobin 26.7 PG (27.0-31.0) Mean Corpuscular Hemoglobin Concent 33.5 G/DL (32.0-36.0) Red Cell Distribution Width 14.2 % (11.6-14.8) Platelet Count 192 K/UL (150-450) Mean Platelet Volume 8.1 FL (6.5-10.1) Neutrophils (%) (Auto) 79.3 % (45.0-75.0) Lymphocytes (%) (Auto) 12.9 % (20.0-45.0) Monocytes (%) (Auto) 7.4 % (1.0-10.0) Eosinophils (%) (Auto) 0.0 % (0.0-3.0) Basophils (%) (Auto) 0.5 % (0.0-2.0) Urine Color Pale yellow Urine Appearance Cloudy Urine pH 6.5 (4.5-8.0) Urine Specific [place] 1.015 (1.005-1.035) Urine Protein 3+ (NEGATIVE) Urine Glucose (UA) Negative (NEGATIVE) Urine Ketones Negative (NEGATIVE) Urine Blood 5+ (NEGATIVE) Urine Nitrite Negative (NEGATIVE) Urine Bilirubin Negative (NEGATIVE) Urine Urobilinogen Normal MG/DL (0.0-1.0) Urine Leukocyte Esterase 3+ (NEGATIVE) Urine RBC 10-15 /HPF (0 - 0) Urine WBC 60-80 /HPF (0 - 0) Urine Squamous Epithelial Cells Few /LPF (NONE/OCC) Urine Bacteria Many /HPF (NONE) Urine Eosinophils None seen (NONE SEEN) Urine Osmolality 486 mOsm/kg (429-449) Urine Random Sodium 44 mmol/L (20-110) Sodium Level 135 MMOL/L (136-145) Potassium Level 4.5 MMOL/L (3.5-5.1) Chloride Level 99 MMOL/L (98-107) Carbon Dioxide Level 23 MMOL/L (21-32) Anion Gap 14 mmol/L (5-15) Blood Urea Nitrogen 37 mg/dL (7-18) Creatinine 1.8 MG/DL (0.55-1.30) Estimat Glomerular Filtration Rate 36.0 mL/min (>60) Glucose Level 438 MG/DL (74-106) Calcium Level 8.0 MG/DL (8.5-10.1) Phosphorus Level 4.8 MG/DL (2.5-4.9) Albumin 2.1 G/DL (3.4-5.0) EKG Diagnostic Results Rate: normal Rhythm: NSR ST Segments: other - Right bundle branch block Status: unchanged Disposition: ADMITTED INPATIENT Condition: Stable Thierno Macias MD Aug 17, 2020 17:27
[2020-08-17] MEDS ORDERED: dexAMETHasone 10mg/ml Inj IV ONE (17:30)
[2020-08-17 17:40] VITALS: BP 110/81
--- NOTE | 2020-08-17 17:40 | NUR ---
ED Nurse Note: Pt MELIDAA from [facility] for SOB and desaturation to 86% RA. Pt is currently 96% 4L NC. Pt tested COVID + today. He is alert and orientedx4, bedrest. Hx of weakness on R side due to CVA. Pt is set up on monitor. IV established and blood drawn and sent.
[2020-08-17 18:42] LABS: BASOPHILS % (AUTO) 0.9 % (0.0-2.0); HEMATOCRIT 44.6 % (42.0-52.0); HEMOGLOBIN 14.7 G/DL (14.2-18.0); LYMPHOCYTES % (AUTO) 18.8 % (20.0-45.0); MEAN CORPUSCULAR VOLUME 81 FL (80-99); MONOCYTES % (AUTO) 12.6 % (1.0-10.0); NEUTROPHILS % (AUTO) 67.6 % (45.0-75.0); PLATELET COUNT 167 K/UL (150-450); RED BLOOD COUNT 5.48 M/UL (4.70-6.10); RED CELL DISTRIBUTION WIDTH 13.5 % (11.6-14.8); WHITE BLOOD COUNT 5.9 K/UL (4.8-10.8)
--- NOTE | 2020-08-17 18:58 | Diagnostic Imaging Report ---
EXAM: XR Chest, 1 View CLINICAL HISTORY: SOB TECHNIQUE: Frontal view of the chest. COMPARISON: 03/28/19 FINDINGS: No significant change in tortuosity/ectasia of the thoracic aorta. Negative for cardiac enlargement. Negative for focal consolidation, pneumothorax or pleural fluid collections.
--- NOTE | 2020-08-17 19:12 | NUR ---
ED Nurse Note: Report received from CESAR ADAMS.
[2020-08-17 19:19] LABS: APPEARANCE,URINE VERY CLOUDY; BILIRUBIN, URINE NEGATIVE (NEGATIVE); GLUCOSE, URINE (UA) NEGATIVE (NEGATIVE); KETONES,URINE NEGATIVE (NEGATIVE); LEUKOCYTE ESTERASE ,URINE 3+ (NEGATIVE); NITRITE,URINE NEGATIVE (NEGATIVE); PH,URINE 6.5 (4.5-8.0); PROTEIN,URINE 3+ (NEGATIVE); UROBILINOGEN,URINE 1 MG/DL (0.0-1.0)
[2020-08-17 19:23] LABS: COLOR,URINE YELLOW
[2020-08-17 19:27] LABS: INR 1.2 (0.9-1.1)
[2020-08-17 19:28] LABS: ANION GAP 6 mmol/L (5-15); BLOOD UREA NITROGEN 36 mg/dL (7-18); CALCIUM 8.4 MG/DL (8.5-10.1); CARBON DIOXIDE 26 MMOL/L (21-32); CHLORIDE 108 MMOL/L (98-107); POTASSIUM 4.3 MMOL/L (3.5-5.1); SODIUM 140 MMOL/L (136-145)
[2020-08-17 19:30] VITALS: BP 112/78
[2020-08-17] MEDS ORDERED: Albuterol/Ipratropium 3ml neb HHN PRN (19:45)
[2020-08-17 19:50] LABS: ALANINE AMINOTRANSFERASE < 6 U/L (12-78); ALBUMIN 2.5 G/DL (3.4-5.0); ALBUMIN/GLOBULIN RATIO 0.6 (1.0-2.7); ALKALINE PHOSPHATASE 83 U/L (46-116); ASPARTATE AMINO TRANSFERASE 16 U/L (15-37); BILIRUBIN,TOTAL 0.2 MG/DL (0.2-1.0); CREATINE KINASE 45 U/L (26-308); FERRITIN 377 NG/ML (8-388); PHOSPHORUS 4.4 MG/DL (2.5-4.9)
[2020-08-17 20:14] LABS: CKMB 1.4 NG/ML (0.0-3.6); LACTATE DEHYDROGENASE 162 U/L (81-234)
[2020-08-17] MEDS ORDERED: cefTRIAXone 1 GM in NS 55 ML IVPB ONE (20:45)
[2020-08-17] MEDS ORDERED: Heparin 5000 units/ml inj SUBQ SCH (21:00)
[2020-08-17 21:11] LABS: CREATINE KINASE 82 U/L (26-308)
--- NOTE | 2020-08-17 22:00 | NUR ---
ED Nurse Note: Patient awake on bed, VSS as documented
[2020-08-17 23:30] VITALS: BP 108/72
--- NOTE | 2020-08-18 00:30 | NUR ---
ED Nurse Note: Admit orders verified; Azithromycin 250mg/IV stock not available.
[2020-08-18] MEDS ORDERED: Azithromycin 250 MG in D5W 275 ML IV SCH (01:00)
--- NOTE | 2020-08-18 01:06 | NUR ---
ED Nurse Note: Rapid covid test done CRE, VRE, MRSA swabs sent
[2020-08-18 05:00] VITALS: BP 110/72
--- NOTE | 2020-08-18 05:00 | NUR ---
ED Nurse Note: Admission labs sent Urine sent
[2020-08-18 06:08] LABS: BASOPHILS % (AUTO) 0.5 % (0.0-2.0); HEMOGLOBIN 16.1 G/DL (14.2-18.0); LYMPHOCYTES % (AUTO) 12.9 % (20.0-45.0); MEAN CORPUSCULAR VOLUME 80 FL (80-99); MONOCYTES % (AUTO) 7.4 % (1.0-10.0); NEUTROPHILS % (AUTO) 79.3 % (45.0-75.0); PLATELET COUNT 192 K/UL (150-450); RED BLOOD COUNT 6.01 M/UL (4.70-6.10); RED CELL DISTRIBUTION WIDTH 14.2 % (11.6-14.8); WHITE BLOOD COUNT 5.1 K/UL (4.8-10.8)
[2020-08-18 06:09] LABS: APPEARANCE,URINE CLOUDY; BILIRUBIN, URINE NEGATIVE (NEGATIVE); GLUCOSE, URINE (UA) NEGATIVE (NEGATIVE); KETONES,URINE NEGATIVE (NEGATIVE); LEUKOCYTE ESTERASE ,URINE 3+ (NEGATIVE); NITRITE,URINE NEGATIVE (NEGATIVE); PH,URINE 6.5 (4.5-8.0); PROTEIN,URINE 3+ (NEGATIVE); UROBILINOGEN,URINE NORMAL MG/DL (0.0-1.0)
[2020-08-18 06:24] LABS: ALBUMIN 2.1 G/DL (3.4-5.0); ANION GAP 14 mmol/L (5-15); BLOOD UREA NITROGEN 37 mg/dL (7-18); CARBON DIOXIDE 23 MMOL/L (21-32); CHLORIDE 99 MMOL/L (98-107); CREATININE 1.8 MG/DL (0.55-1.30); PHOSPHORUS 4.8 MG/DL (2.5-4.9); POTASSIUM 4.5 MMOL/L (3.5-5.1); SODIUM 135 MMOL/L (136-145)
[2020-08-18 06:41] LABS: COLOR,URINE PALE YELLOW
--- NOTE | 2020-08-18 07:05 | NUR ---
ED Nurse Note: Report given to CESAR ADAMS
[2020-08-18 07:50] VITALS: BP 117/76
[2020-08-18] MEDS: Tamsulosin 0.4mg cap ORAL SCH ×2 (09:17→17:38)
--- NOTE | 2020-08-18 09:25 | NUR ---
ED Nurse Note: Report given to Gisel ADAMS.
--- NOTE | 2020-08-18 09:44 | NUR ---
ED Nurse Note: Spoke to pharmacist and ERMD , ok to give Azithromycin now.
--- NOTE | 2020-08-18 09:55 | NUR ---
ED Nurse Note: Pt trasnferred to tele floor with all belongings. Pt has no acute distress. MRSA VRE CRE sent to lab.
--- NOTE | 2020-08-18 10:00 | NUR ---
NURSE NOTES: Pt received from Nellie ADAMS. Vitals as [id number], 113 on HR, 98.3 oral, 96% on 6 liters NC. No pain. Pt has BM, cleaned him. Azithro not run from ER so started Azithro. Pt stable, has cellphone and glasses and dentures in mouth. Call light placed in reach. Bed low and locked. Tele box placed.
--- NOTE | 2020-08-18 11:00 | History and Physical Report ---
DATE OF ADMISSION: 08/17/2020 DATE AND TIME SEEN: On 08/18/2020 at 9 a.m. CONSULTANTS: 1. Angelita Alarcon MD 2. Wicho Villa MD 3. Dr. Oswald. 4. Sabino Goncalves MD CHIEF COMPLAINT: Shortness of breath, cough, hypoxia, and COVID infection. BRIEF HISTORY: This is an 84-year-old male from [facility], who presented with increased shortness of breath, was hypoxic down to the mid 80s, sent to [place], diagnosed with COVID infection and hypoxia, and he is currently in ER awaiting admission. Currently, slight shortness of breath, in the ER gurney, no complaint. REVIEW OF SYSTEMS: No chest pain. Slight shortness of breath. No nausea, vomiting, or diarrhea. PAST MEDICAL HISTORY: Includes CVA, right-sided weakness, right bundle-branch block, hypertension, diabetes, and acute renal failure. PAST SURGICAL HISTORY: Unknown. ALLERGIES: Denies. SOCIAL HISTORY: No smoking. No alcohol. No intravenous drug abuse. FAMILY HISTORY: Noncontributory. PHYSICAL EXAMINATION: GENERAL: Calm in bed, oriented x3, in no acute distress. VITAL SIGNS: Temperature 97, pulse 76, respirations 21, blood pressure 117/76. CARDIOVASCULAR: No murmur. LUNGS: Poor air exchange. ABDOMEN: Bowel sounds distant. EXTREMITIES: Show no cyanosis or edema. NEUROLOGIC: The patient moves all extremities, slightly weak. LABORATORY AND DIAGNOSTIC DATA: Labs at this time show CBC is normal. BMP shows sodium 135, BUN 37, creatinine 1.8, otherwise normal. Albumin 2.5. INR is 1.2. Urinalysis is 3+ leukocyte esterase. MEDICATIONS: Include ceftriaxone, dexamethasone, apixaban, azithromycin, Zofran, albuterol, and diazepam. ASSESSMENT: Hypoxia, COVID infection, UTI, CVA, right-sided weakness, malnutrition, right bundle-branch block, diabetes, hypertension, and acute renal failure. PLAN: O2 and pulmonary treatment. Antibiotics per Infectious Disease. Blood pressure and blood sugar control. Dietary followup. Resume home medications. PT and dietary evaluation. CBC and BMP in the morning. Chris Tipton D.O. DR: Bautista JOB#: [id number] CC:
[2020-08-18 12:00] VITALS: BP 125/62
--- NOTE | 2020-08-18 13:05 | Infectious Diseases Prog Note ---
Subjective Allergies: Coded Allergies: No Known Allergies (Unverified , 01/04/19) # [id number] Objective Last 24 Hour Vital Signs Date Time Temp Pulse Resp B/P (MAP) Pulse Ox O2 Delivery O2 Flow Rate FiO2 08/18/20 11:46 Nasal Cannula 6.0 08/18/20 09:55 98.1 79 21 122/71 98 Room Air 08/18/20 07:50 97.0 76 21 117/76 99 Nasal Cannula 5.0 08/18/20 05:00 97.0 7 20 110/72 98 Nasal Cannula 5.0 98 08/17/20 23:30 97.0 67 20 108/72 98 Nasal Cannula 5.0 98 08/17/20 19:30 97.0 66 20 112/78 98 Nasal Cannula 5.0 98 08/17/20 17:40 97.0 69 23 110/81 98 Nasal Cannula 5.0 08/17/20 17:40 69 23 Nasal Cannula 5.0 98 08/17/20 17:24 97.0 65 24 104/84 (91) 94 Nasal Cannula 5.0 Height (Feet): 5 Height (Inches): 8.00 Weight (Pounds): 163 HEENT: atraumatic Respiratory/Chest: lungs clear Cardiovascular: normal rate Abdomen: no organomegaly Microbiology Date/Time Source Procedure Growth Status 08/18/20 10:05 Rectum Received 08/18/20 01:00 Nasopharynx SARS-CoV-2 RdRp Gene Assay - Final Complete 08/17/20 18:19 Urine,Clean Catch Urine Culture - Preliminary Gram Negative Bridger Resulted Laboratory Tests Test 08/17/20 18:19 08/18/20 05:00 White Blood Count 5.9 K/UL (4.8-10.8) 5.1 K/UL (4.8-10.8) Red Blood Count 5.48 M/UL (4.70-6.10) 6.01 M/UL (4.70-6.10) Hemoglobin 14.7 G/DL (14.2-18.0) 16.1 G/DL (14.2-18.0) Hematocrit 44.6 % (42.0-52.0) 48.0 % (42.0-52.0) Mean Corpuscular Volume 81 FL (80-99) 80 FL (80-99) Mean Corpuscular Hemoglobin 26.8 PG (27.0-31.0) L 26.7 PG (27.0-31.0) L Mean Corpuscular Hemoglobin Concent 32.9 G/DL (32.0-36.0) 33.5 G/DL (32.0-36.0) Red Cell Distribution Width 13.5 % (11.6-14.8) 14.2 % (11.6-14.8) Platelet Count 167 K/UL (150-450) 192 K/UL (150-450) Mean Platelet Volume 8.1 FL (6.5-10.1) 8.1 FL (6.5-10.1) Neutrophils (%) (Auto) 67.6 % (45.0-75.0) 79.3 % (45.0-75.0) H Lymphocytes (%) (Auto) 18.8 % (20.0-45.0) L 12.9 % (20.0-45.0) L Monocytes (%) (Auto) 12.6 % (1.0-10.0) H 7.4 % (1.0-10.0) Eosinophils (%) (Auto) 0.0 % (0.0-3.0) 0.0 % (0.0-3.0) Basophils (%) (Auto) 0.9 % (0.0-2.0) 0.5 % (0.0-2.0) Prothrombin Time 12.6 SEC (9.30-11.50) H Prothromb Time International Ratio 1.2 (0.9-1.1) H Activated Partial Thromboplast Time 40 SEC (23-33) H D-Dimer 0.30 mg/L FEU (0.00-0.49) Urine Color Yellow Pale yellow Urine Appearance Very cloudy Cloudy Urine pH 6.5 (4.5-8.0) 6.5 (4.5-8.0) Urine Specific [place] 1.015 (1.005-1.035) 1.015 (1.005-1.035) Urine Protein 3+ (NEGATIVE) H 3+ (NEGATIVE) H Urine Glucose (UA) Negative (NEGATIVE) Negative (NEGATIVE) Urine Ketones Negative (NEGATIVE) Negative (NEGATIVE) Urine Blood 5+ (NEGATIVE) H 5+ (NEGATIVE) H Urine Nitrite Negative (NEGATIVE) Negative (NEGATIVE) Urine Bilirubin Negative (NEGATIVE) Negative (NEGATIVE) Urine Urobilinogen 1 MG/DL (0.0-1.0) H Normal MG/DL (0.0-1.0) Urine Leukocyte Esterase 3+ (NEGATIVE) H 3+ (NEGATIVE) H Urine RBC 5-10 /HPF (0 - 0) H 10-15 /HPF (0 - 0) H Urine WBC Tntc /HPF (0 - 0) H 60-80 /HPF (0 - 0) H Urine Squamous Epithelial Cells None /LPF (NONE/OCC) Few /LPF (NONE/OCC) Urine Bacteria Many /HPF (NONE) H Many /HPF (NONE) H Sodium Level 140 MMOL/L (136-145) 135 MMOL/L (136-145) L Potassium Level 4.3 MMOL/L (3.5-5.1) 4.5 MMOL/L (3.5-5.1) Chloride Level 108 MMOL/L (98-107) H 99 MMOL/L (98-107) Carbon Dioxide Level 26 MMOL/L (21-32) 23 MMOL/L (21-32) Anion Gap 6 mmol/L (5-15) 14 mmol/L (5-15) Blood Urea Nitrogen 36 mg/dL (7-18) H 37 mg/dL (7-18) H Creatinine 2.0 MG/DL (0.55-1.30) H 1.8 MG/DL (0.55-1.30) H Estimat Glomerular Filtration Rate 31.8 mL/min (>60) 36.0 mL/min (>60) Glucose Level 131 MG/DL (74-106) H 438 MG/DL (74-106) #H Lactic Acid Level 1.50 mmol/L (0.4-2.0) Uric Acid 7.5 MG/DL (2.6-7.2) H Calcium Level 8.4 MG/DL (8.5-10.1) L 8.0 MG/DL (8.5-10.1) L Phosphorus Level 4.4 MG/DL (2.5-4.9) 4.8 MG/DL (2.5-4.9) Magnesium Level 2.2 MG/DL (1.8-2.4) Ferritin 377 NG/ML (8-388) Total Bilirubin 0.2 MG/DL (0.2-1.0) Aspartate Amino Transf (AST/SGOT) 16 U/L (15-37) Alanine Aminotransferase (ALT/SGPT) < 6 U/L (12-78) L Alkaline Phosphatase 83 U/L (46-116) Lactate Dehydrogenase 162 U/L (81-234) Total Creatine Kinase 82 U/L (26-308) Creatine Kinase MB 1.4 NG/ML (0.0-3.6) Creatine Kinase MB Relative Index 3.1 Troponin I 0.018 ng/mL (0.000-0.056) C-Reactive Protein, Quantitative < 0.4 mg/dL (0.00-0.90) Pro-B-Type Natriuretic Peptide 1056 pg/mL (0-125) H Total Protein 6.6 G/DL (6.4-8.2) Albumin 2.5 G/DL (3.4-5.0) L 2.1 G/DL (3.4-5.0) L Globulin 4.1 g/dL Albumin/Globulin Ratio 0.6 (1.0-2.7) L Lipase 167 U/L (73-393) Urine Eosinophils None seen (NONE SEEN) Urine Osmolality 486 mOsm/kg (429-449) H Urine Random Creatinine Pending Urine Random Microalbumin Pending Urine Random Sodium 44 mmol/L (20-110) Urine Microalbumin/Creatinine Ratio Pending Current Medications Medications (Trade) Dose Ordered Sig/Amaya Route PRN Reason Start Time Stop Time Status Last Admin Dose Admin Acetaminophen (Tylenol) 650 mg Q4H PRN ORAL Temp >100.5 08/17/20 19:45 09/16/20 19:44 Albuterol/ Ipratropium (Albuterol/ Ipratropium) 3 ml EVERY 4 HOURS PRN HHN Shortness of Breath 08/17/20 19:45 08/22/20 19:44 Apixaban (Eliquis) 5 mg BID ORAL 08/18/20 09:00 11/16/20 08:59 UNV Azithromycin 250 mg/Dextrose 275 ml @ 275 mls/hr Q24HRS IV 08/18/20 01:00 08/23/20 00:59 08/18/20 09:45 Ceftriaxone Sodium 1 gm/ Dextrose 55 ml @ 110 mls/hr Q24H IVPB 08/18/20 22:00 08/25/20 21:59 Dexamethasone (Decadron) 6 mg DAILY ORAL 08/18/20 09:00 08/26/20 12:00 08/18/20 09:17 Dextrose (Dextrose 50%) 25 ml Q30M PRN IV Hypoglycemia 08/18/20 11:45 11/16/20 11:44 Dextrose (Dextrose 50%) 50 ml Q30M PRN IV Hypoglycemia 08/18/20 11:45 11/16/20 11:44 Diazepam (Valium) 5 mg HSPRN PRN ORAL For Anxiety 08/17/20 19:45 08/24/20 19:44 Insulin Aspart (NovoLOG) BEFORE MEALS AND HS SUBQ 08/18/20 16:30 11/16/20 16:29 Ondansetron HCl (Zofran) 4 mg Q6H PRN IVP Nausea & Vomiting 08/17/20 19:45 09/16/20 19:44 Pantoprazole (Protonix) 40 mg DAILY ORAL 08/18/20 09:00 09/17/20 08:59 08/18/20 09:17 Polyethylene Glycol (Miralax) 17 gm DAILYPRN PRN ORAL Constipation 08/17/20 19:45 09/16/20 19:44 Promethazine HCl/ Codeine (Phenergan with Codeine) 5 ml Q6H PRN ORAL cough 08/17/20 19:45 09/16/20 19:44 Tamsulosin HCl (Flomax) 0.4 mg BID ORAL 08/18/20 09:00 09/17/20 08:59 08/18/20 09:17 Wicho Villa MD Aug 18, 2020 13:05
--- NOTE | 2020-08-18 14:15 | Consultation ---
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 Patient recent positive coronavirus testing at the facility. Been started on supplemental oxygen by ambulance. Patient is currently on 5 L. Oxygen saturation had dropped into the 80s. He is admitted to telemetry for further evaluation. Allergies: Coded Allergies: No Known Allergies (Unverified , 01/04/19) Medication History Scheduled Apixaban (Eliquis*), 5 MG PO BID, (Reported) Aspirin* (Aspir 81*), 81 MG ORAL DAILY, (Reported) Bisacodyl (Biscolax), 10 MG RC PRN, (Reported) Docusate Sodium* (Colace*), 100 MG ORAL TID, (Reported) Dutasteride (Avodart), 0.5 MG ORAL DAILY, (Reported) Dutasteride (Avodart), 0.5 MG ORAL DAILY, (Reported) Heparin Sod (Porcine) (Heparin Sodium*), 5,000 UNITS SUBQ EVERY 12 HOURS, (Reported) Ibuprofen (Motrin), 600 MG ORAL FOUR TIMES A DAY, (Reported) Insulin Aspart (Novolog), 0 SQ ACHS, (Reported) Magnesium Hydroxide* (Milk Of Magnesia*), 30 ML ORAL PRN, (Reported) Metformin Hcl* (Metformin Hcl*), 500 MG ORAL DAILY, (Reported) Morphine Sulfate* (Morphine Sulfate*), 2 MG IV Q4HR, (Reported) Multivitamin With Minerals (Multivitamins With Minerals*), 1 TAB ORAL DAILY, (Reported) Pantoprazole* (Pantoprazole*), 40 MG ORAL DAILY, (Reported) Solifenacin Succinate (Vesicare*), 10 MG ORAL DAILY, (Reported) Tamsulosin Hcl (Tamsulosin Hcl*), 0.4 MG ORAL BID, (Reported) [Linzess 72 Mcg ], 290 MCG PO DAILY, (Reported) Scheduled PRN Acetaminophen (Acetaminophen), 650 MG ORAL Q4H PRN for fever, (Reported) Diazepam* (Valium*), 5 MG ORAL BEDTIME PRN for For Anxiety, (Reported) Glucagon HCl (Glucagon HCl), 1 UNIT IM PRN PRN for Hypoglycemia, (Reported) Ibuprofen (Motrin), 600 MG ORAL Q4HR PRN for For Pain, (Reported) Mineral Oil (Mineral Oil Enema), 133 ML RC DAILY PRN for Constipation, (Reported) Na Phos,M-B/Na Phos,Di-Ba* (Fleet Enema*), 133 ML RECTAL EVERY OTHER DAY PRN for Constipation, (Reported) Ondansetron* (Zofran*), 4 MG IV Q6H PRN for Nausea & Vomiting, (Reported) Polyethylene Glycol 3350* (Miralax*), 17 GM ORAL DAILY PRN for Constipation, (Reported) Miscellaneous Medications Morphine Sulfate (Morphine Sulfate), 4 MG IJ, (Reported) Patient History Healthcare decision maker Resuscitation status Advanced Directive on File Past Medical/Surgical History Past Medical/Surgical History: (1) BPH (benign prostatic hyperplasia) (2) CVA, old, hemiparesis (3) Chronic constipation (4) Hypertension (5) Diabetes mellitus Review of Systems All Other Systems: negative except mentioned in HPI Physical Exam General Appearance: thin Lines, tubes and drains: peripheral, central line HEENT: normocephalic, atraumatic Neck: non-tender Respiratory/Chest: chest wall non-tender, lungs clear Breasts: no masses Cardiovascular/Chest: normal peripheral pulses, normal rate Abdomen: normal bowel sounds, non tender Genitourinary/Rectal: normal genital exam Extremities: normal range of motion, non-tender Skin Exam: normal pigmentation 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 Last 24 Hour Vital Signs Date Time Temp Pulse Resp B/P (MAP) Pulse Ox O2 Delivery O2 Flow Rate FiO2 08/18/20 12:00 98.5 111 18 125/62 (83) 96 08/18/20 11:46 Nasal Cannula 6.0 08/18/20 09:55 98.1 79 21 122/71 98 Room Air 08/18/20 07:50 97.0 76 21 117/76 99 Nasal Cannula 5.0 08/18/20 05:00 97.0 7 20 110/72 98 Nasal Cannula 5.0 98 08/17/20 23:30 97.0 67 20 108/72 98 Nasal Cannula 5.0 98 08/17/20 19:30 97.0 66 20 112/78 98 Nasal Cannula 5.0 98 08/17/20 17:40 97.0 69 23 110/81 98 Nasal Cannula 5.0 08/17/20 17:40 69 23 Nasal Cannula 5.0 98 08/17/20 17:24 97.0 65 24 104/84 (91) 94 Nasal Cannula 5.0 Intake and Output 08/17/20 08/18/20 19:00 07:00 Intake Total 0 ml Balance 0 ml Intake Oral 0 ml Laboratory Tests Test 08/17/20 18:19 08/18/20 05:00 White Blood Count 5.9 K/UL (4.8-10.8) 5.1 K/UL (4.8-10.8) Red Blood Count 5.48 M/UL (4.70-6.10) 6.01 M/UL (4.70-6.10) Hemoglobin 14.7 G/DL (14.2-18.0) 16.1 G/DL (14.2-18.0) Hematocrit 44.6 % (42.0-52.0) 48.0 % (42.0-52.0) Mean Corpuscular Volume 81 FL (80-99) 80 FL (80-99) Mean Corpuscular Hemoglobin 26.8 PG (27.0-31.0) L 26.7 PG (27.0-31.0) L Mean Corpuscular Hemoglobin Concent 32.9 G/DL (32.0-36.0) 33.5 G/DL (32.0-36.0) Red Cell Distribution Width 13.5 % (11.6-14.8) 14.2 % (11.6-14.8) Platelet Count 167 K/UL (150-450) 192 K/UL (150-450) Mean Platelet Volume 8.1 FL (6.5-10.1) 8.1 FL (6.5-10.1) Neutrophils (%) (Auto) 67.6 % (45.0-75.0) 79.3 % (45.0-75.0) H Lymphocytes (%) (Auto) 18.8 % (20.0-45.0) L 12.9 % (20.0-45.0) L Monocytes (%) (Auto) 12.6 % (1.0-10.0) H 7.4 % (1.0-10.0) Eosinophils (%) (Auto) 0.0 % (0.0-3.0) 0.0 % (0.0-3.0) Basophils (%) (Auto) 0.9 % (0.0-2.0) 0.5 % (0.0-2.0) Prothrombin Time 12.6 SEC (9.30-11.50) H Prothromb Time International Ratio 1.2 (0.9-1.1) H Activated Partial Thromboplast Time 40 SEC (23-33) H D-Dimer 0.30 mg/L FEU (0.00-0.49) Urine Color Yellow Pale yellow Urine Appearance Very cloudy Cloudy Urine pH 6.5 (4.5-8.0) 6.5 (4.5-8.0) Urine Specific [place] 1.015 (1.005-1.035) 1.015 (1.005-1.035) Urine Protein 3+ (NEGATIVE) H 3+ (NEGATIVE) H Urine Glucose (UA) Negative (NEGATIVE) Negative (NEGATIVE) Urine Ketones Negative (NEGATIVE) Negative (NEGATIVE) Urine Blood 5+ (NEGATIVE) H 5+ (NEGATIVE) H Urine Nitrite Negative (NEGATIVE) Negative (NEGATIVE) Urine Bilirubin Negative (NEGATIVE) Negative (NEGATIVE) Urine Urobilinogen 1 MG/DL (0.0-1.0) H Normal MG/DL (0.0-1.0) Urine Leukocyte Esterase 3+ (NEGATIVE) H 3+ (NEGATIVE) H Urine RBC 5-10 /HPF (0 - 0) H 10-15 /HPF (0 - 0) H Urine WBC Tntc /HPF (0 - 0) H 60-80 /HPF (0 - 0) H Urine Squamous Epithelial Cells None /LPF (NONE/OCC) Few /LPF (NONE/OCC) Urine Bacteria Many /HPF (NONE) H Many /HPF (NONE) H Sodium Level 140 MMOL/L (136-145) 135 MMOL/L (136-145) L Potassium Level 4.3 MMOL/L (3.5-5.1) 4.5 MMOL/L (3.5-5.1) Chloride Level 108 MMOL/L (98-107) H 99 MMOL/L (98-107) Carbon Dioxide Level 26 MMOL/L (21-32) 23 MMOL/L (21-32) Anion Gap 6 mmol/L (5-15) 14 mmol/L (5-15) Blood Urea Nitrogen 36 mg/dL (7-18) H 37 mg/dL (7-18) H Creatinine 2.0 MG/DL (0.55-1.30) H 1.8 MG/DL (0.55-1.30) H Estimat Glomerular Filtration Rate 31.8 mL/min (>60) 36.0 mL/min (>60) Glucose Level 131 MG/DL (74-106) H 438 MG/DL (74-106) #H Lactic Acid Level 1.50 mmol/L (0.4-2.0) Uric Acid 7.5 MG/DL (2.6-7.2) H Calcium Level 8.4 MG/DL (8.5-10.1) L 8.0 MG/DL (8.5-10.1) L Phosphorus Level 4.4 MG/DL (2.5-4.9) 4.8 MG/DL (2.5-4.9) Magnesium Level 2.2 MG/DL (1.8-2.4) Ferritin 377 NG/ML (8-388) Total Bilirubin 0.2 MG/DL (0.2-1.0) Aspartate Amino Transf (AST/SGOT) 16 U/L (15-37) Alanine Aminotransferase (ALT/SGPT) < 6 U/L (12-78) L Alkaline Phosphatase 83 U/L (46-116) Lactate Dehydrogenase 162 U/L (81-234) Total Creatine Kinase 82 U/L (26-308) Creatine Kinase MB 1.4 NG/ML (0.0-3.6) Creatine Kinase MB Relative Index 3.1 Troponin I 0.018 ng/mL (0.000-0.056) C-Reactive Protein, Quantitative < 0.4 mg/dL (0.00-0.90) Pro-B-Type Natriuretic Peptide 1056 pg/mL (0-125) H Total Protein 6.6 G/DL (6.4-8.2) Albumin 2.5 G/DL (3.4-5.0) L 2.1 G/DL (3.4-5.0) L Globulin 4.1 g/dL Albumin/Globulin Ratio 0.6 (1.0-2.7) L Lipase 167 U/L (73-393) Urine Eosinophils None seen (NONE SEEN) Urine Osmolality 486 mOsm/kg (429-449) H Urine Random Creatinine Pending Urine Random Microalbumin Pending Urine Random Sodium 44 mmol/L (20-110) Urine Microalbumin/Creatinine Ratio Pending Microbiology Date/Time Source Procedure Growth Status 08/18/20 10:05 Rectum Received 08/18/20 01:00 Nasopharynx SARS-CoV-2 RdRp Gene Assay - Final Complete 08/17/20 18:19 Urine,Clean Catch Urine Culture - Preliminary Gram Negative Bridger Resulted Height (Feet): 5 Height (Inches): 8.00 Weight (Pounds): 163 Medications Current Medications Medications (Trade) Dose Ordered Sig/Amaya Route PRN Reason Start Time Stop Time Status Last Admin Dose Admin Acetaminophen (Tylenol) 650 mg Q4H PRN ORAL Temp >100.5 08/17/20 19:45 09/16/20 19:44 Albuterol/ Ipratropium (Combivent Respimat) 1 puff Q4H PRN INH Shortness of Breath 08/18/20 13:00 09/17/20 12:59 Apixaban (Eliquis) 5 mg BID ORAL 08/18/20 09:00 11/16/20 08:59 UNV Azithromycin 250 mg/Dextrose 275 ml @ 275 mls/hr Q24HRS IV 08/18/20 01:00 08/23/20 00:59 08/18/20 09:45 Ceftriaxone Sodium 1 gm/ Dextrose 55 ml @ 110 mls/hr Q24H IVPB 08/18/20 22:00 08/25/20 21:59 Dexamethasone (Decadron) 6 mg DAILY ORAL 08/18/20 09:00 08/26/20 12:00 08/18/20 09:17 Dextrose (Dextrose 50%) 25 ml Q30M PRN IV Hypoglycemia 08/18/20 11:45 11/16/20 11:44 Dextrose (Dextrose 50%) 50 ml Q30M PRN IV Hypoglycemia 08/18/20 11:45 11/16/20 11:44 Diazepam (Valium) 5 mg HSPRN PRN ORAL For Anxiety 08/17/20 19:45 08/24/20 19:44 Insulin Aspart (NovoLOG) BEFORE MEALS AND HS SUBQ 08/18/20 16:30 11/16/20 16:29 Ondansetron HCl (Zofran) 4 mg Q6H PRN IVP Nausea & Vomiting 08/17/20 19:45 09/16/20 19:44 Pantoprazole (Protonix) 40 mg DAILY ORAL 08/18/20 09:00 09/17/20 08:59 08/18/20 09:17 Polyethylene Glycol (Miralax) 17 gm DAILYPRN PRN ORAL Constipation 08/17/20 19:45 09/16/20 19:44 Promethazine HCl/ Codeine (Phenergan with Codeine) 5 ml Q6H PRN ORAL cough 08/17/20 19:45 09/16/20 19:44 Tamsulosin HCl (Flomax) 0.4 mg BID ORAL 08/18/20 09:00 09/17/20 08:59 08/18/20 09:17 Assessment/Plan Problem List: (1) Hypoxia ICD Codes: R09.02 - Hypoxemia SNOMED: 087789893 (2) 2019 novel coronavirus detected ICD Codes: U07.1 - COVID-19 SNOMED: 2880400418035751 (3) CVA, old, hemiparesis ICD Codes: I69.359 - Hemiplegia and hemiparesis following cerebral infarction affecting unspecified side SNOMED: 087696874 (4) Hypertension ICD Codes: I10 - Essential (primary) hypertension SNOMED: 58410972 (5) Diabetes mellitus ICD Codes: E11.9 - Type 2 diabetes mellitus without complications SNOMED: 67607098 (6) BPH (benign prostatic hyperplasia) ICD Codes: N40.0 - Benign prostatic hyperplasia without lower urinary tract symptoms SNOMED: 092589710 Assessment/Plan: respiratory isolation steroids and Remdesevir titrate fio2 to sat of 92% iv abx check inflammatory markers sliding scale diabetic diet Angelita Alarcon MD Aug 18, 2020 14:15
--- NOTE | 2020-08-18 15:18 | Cardiac Electrophysiology PN ---
Subjective Subjective [id number] Objective Last 24 Hour Vital Signs Date Time Temp Pulse Resp B/P (MAP) Pulse Ox O2 Delivery O2 Flow Rate FiO2 08/18/20 12:00 98.5 111 18 125/62 (83) 96 08/18/20 12:00 107 08/18/20 11:46 Nasal Cannula 6.0 08/18/20 09:55 98.1 79 21 122/71 98 Room Air 08/18/20 07:50 97.0 76 21 117/76 99 Nasal Cannula 5.0 08/18/20 05:00 97.0 7 20 110/72 98 Nasal Cannula 5.0 98 08/17/20 23:30 97.0 67 20 108/72 98 Nasal Cannula 5.0 98 08/17/20 19:30 97.0 66 20 112/78 98 Nasal Cannula 5.0 98 08/17/20 17:40 97.0 69 23 110/81 98 Nasal Cannula 5.0 08/17/20 17:40 69 23 Nasal Cannula 5.0 98 08/17/20 17:24 97.0 65 24 104/84 (91) 94 Nasal Cannula 5.0 Intake and Output 08/17/20 08/18/20 19:00 07:00 Intake Total 0 ml Balance 0 ml Intake Oral 0 ml Laboratory Tests Test 08/17/20 18:19 08/18/20 05:00 White Blood Count 5.9 K/UL (4.8-10.8) 5.1 K/UL (4.8-10.8) Red Blood Count 5.48 M/UL (4.70-6.10) 6.01 M/UL (4.70-6.10) Hemoglobin 14.7 G/DL (14.2-18.0) 16.1 G/DL (14.2-18.0) Hematocrit 44.6 % (42.0-52.0) 48.0 % (42.0-52.0) Mean Corpuscular Volume 81 FL (80-99) 80 FL (80-99) Mean Corpuscular Hemoglobin 26.8 PG (27.0-31.0) L 26.7 PG (27.0-31.0) L Mean Corpuscular Hemoglobin Concent 32.9 G/DL (32.0-36.0) 33.5 G/DL (32.0-36.0) Red Cell Distribution Width 13.5 % (11.6-14.8) 14.2 % (11.6-14.8) Platelet Count 167 K/UL (150-450) 192 K/UL (150-450) Mean Platelet Volume 8.1 FL (6.5-10.1) 8.1 FL (6.5-10.1) Neutrophils (%) (Auto) 67.6 % (45.0-75.0) 79.3 % (45.0-75.0) H Lymphocytes (%) (Auto) 18.8 % (20.0-45.0) L 12.9 % (20.0-45.0) L Monocytes (%) (Auto) 12.6 % (1.0-10.0) H 7.4 % (1.0-10.0) Eosinophils (%) (Auto) 0.0 % (0.0-3.0) 0.0 % (0.0-3.0) Basophils (%) (Auto) 0.9 % (0.0-2.0) 0.5 % (0.0-2.0) Prothrombin Time 12.6 SEC (9.30-11.50) H Prothromb Time International Ratio 1.2 (0.9-1.1) H Activated Partial Thromboplast Time 40 SEC (23-33) H D-Dimer 0.30 mg/L FEU (0.00-0.49) Urine Color Yellow Pale yellow Urine Appearance Very cloudy Cloudy Urine pH 6.5 (4.5-8.0) 6.5 (4.5-8.0) Urine Specific [place] 1.015 (1.005-1.035) 1.015 (1.005-1.035) Urine Protein 3+ (NEGATIVE) H 3+ (NEGATIVE) H Urine Glucose (UA) Negative (NEGATIVE) Negative (NEGATIVE) Urine Ketones Negative (NEGATIVE) Negative (NEGATIVE) Urine Blood 5+ (NEGATIVE) H 5+ (NEGATIVE) H Urine Nitrite Negative (NEGATIVE) Negative (NEGATIVE) Urine Bilirubin Negative (NEGATIVE) Negative (NEGATIVE) Urine Urobilinogen 1 MG/DL (0.0-1.0) H Normal MG/DL (0.0-1.0) Urine Leukocyte Esterase 3+ (NEGATIVE) H 3+ (NEGATIVE) H Urine RBC 5-10 /HPF (0 - 0) H 10-15 /HPF (0 - 0) H Urine WBC Tntc /HPF (0 - 0) H 60-80 /HPF (0 - 0) H Urine Squamous Epithelial Cells None /LPF (NONE/OCC) Few /LPF (NONE/OCC) Urine Bacteria Many /HPF (NONE) H Many /HPF (NONE) H Sodium Level 140 MMOL/L (136-145) 135 MMOL/L (136-145) L Potassium Level 4.3 MMOL/L (3.5-5.1) 4.5 MMOL/L (3.5-5.1) Chloride Level 108 MMOL/L (98-107) H 99 MMOL/L (98-107) Carbon Dioxide Level 26 MMOL/L (21-32) 23 MMOL/L (21-32) Anion Gap 6 mmol/L (5-15) 14 mmol/L (5-15) Blood Urea Nitrogen 36 mg/dL (7-18) H 37 mg/dL (7-18) H Creatinine 2.0 MG/DL (0.55-1.30) H 1.8 MG/DL (0.55-1.30) H Estimat Glomerular Filtration Rate 31.8 mL/min (>60) 36.0 mL/min (>60) Glucose Level 131 MG/DL (74-106) H 438 MG/DL (74-106) #H Lactic Acid Level 1.50 mmol/L (0.4-2.0) Uric Acid 7.5 MG/DL (2.6-7.2) H Calcium Level 8.4 MG/DL (8.5-10.1) L 8.0 MG/DL (8.5-10.1) L Phosphorus Level 4.4 MG/DL (2.5-4.9) 4.8 MG/DL (2.5-4.9) Magnesium Level 2.2 MG/DL (1.8-2.4) Ferritin 377 NG/ML (8-388) Total Bilirubin 0.2 MG/DL (0.2-1.0) Aspartate Amino Transf (AST/SGOT) 16 U/L (15-37) Alanine Aminotransferase (ALT/SGPT) < 6 U/L (12-78) L Alkaline Phosphatase 83 U/L (46-116) Lactate Dehydrogenase 162 U/L (81-234) Total Creatine Kinase 82 U/L (26-308) Creatine Kinase MB 1.4 NG/ML (0.0-3.6) Creatine Kinase MB Relative Index 3.1 Troponin I 0.018 ng/mL (0.000-0.056) C-Reactive Protein, Quantitative < 0.4 mg/dL (0.00-0.90) Pro-B-Type Natriuretic Peptide 1056 pg/mL (0-125) H Total Protein 6.6 G/DL (6.4-8.2) Albumin 2.5 G/DL (3.4-5.0) L 2.1 G/DL (3.4-5.0) L Globulin 4.1 g/dL Albumin/Globulin Ratio 0.6 (1.0-2.7) L Lipase 167 U/L (73-393) Urine Eosinophils None seen (NONE SEEN) Urine Osmolality 486 mOsm/kg (429-449) H Urine Random Creatinine Pending Urine Random Microalbumin Pending Urine Random Sodium 44 mmol/L (20-110) Urine Microalbumin/Creatinine Ratio Pending Microbiology Date/Time Source Procedure Growth Status 08/18/20 10:05 Rectum Received 08/18/20 01:00 Nasopharynx SARS-CoV-2 RdRp Gene Assay - Final Complete 08/17/20 18:19 Urine,Clean Catch Urine Culture - Preliminary Gram Negative Bridger Resulted Sabino Goncalves MD Aug 18, 2020 15:18
[2020-08-18 16:00] VITALS: BP 110/52
--- NOTE | 2020-08-18 16:45 | Consultation ---
DATE OF CONSULTATION: 08/18/2020 CARDIOLOGY CONSULTATION CONSULTING PHYSICIAN: Sabino Goncalves M.D. REFERRING PHYSICIAN: Chris Tipton D.O. REASON FOR CONSULTATION: Shortness of breath and hypertension. HISTORY OF PRESENT ILLNESS: The patient is an 84-year-old gentleman with history of hypertension, diabetes, benign prostatic hypertrophy was brought in from [facility] for decreased oxygen saturation. The patient was recently COVID positive at the facility and was started on supplemental oxygen on 5 liters. The saturation dropped to 80%, was admitted to telemetry for further evaluation. REVIEW OF SYSTEMS: Negative other than what was mentioned in history of present illness. PAST MEDICAL HISTORY: As mentioned above. FAMILY HISTORY: Noncontributory. SOCIAL HISTORY: retirement resident. Does not do any drugs. MEDICATIONS: Per reconciliation and includes Eliquis 5 mg b.i.d., metformin, antibiotic. PHYSICAL EXAMINATION: VITAL SIGNS: Show blood pressure of 125/62, pulse is 110, respirations 18, and temperature 98.5. HEAD AND NECK: Showed no JVD. LUNGS: Coarse rhonchi. CARDIOVASCULAR: Regular S1 and S2 with no gallop or murmur. ABDOMEN: Soft. EXTREMITIES: No pitting edema. LABORATORY AND DIAGNOSTIC DATA: Labs show white count of 5.1, hemoglobin 16, hematocrit 48, and platelet count is 192. Sodium is 135, potassium 4.5, BUN of 37, creatinine 1.8, and glucose of 438. Troponin is negative. His BNP was more than 1000. ASSESSMENT/PLAN: 1. Shortness of breath due to COVID-19 pneumonia. The patient is already on ceftriaxone, albuterol, dexamethasone. The patient is also on apixaban. 2. Hypertension. Blood pressure currently is stable, off antihypertensive agents. 3. Diabetes. 4. History of CVA with hemiparesis. 5. Benign prostatic hypertrophy. Thank you very much for allowing me to participate in the care of this patient. Please do not hesitate to contact me for any questions regarding my evaluation. Sincerely, Sabino Goncalves M.D. DR: Kateryna JOB#: [id number] CC:
--- NOTE | 2020-08-18 16:53 | NUR ---
PT Note PT ytrell completed. Patient requests to be discharged from physical therapy. "I don't want to be bothered with any therapy right now." Explained to patient the consequences of immobility but patient still refused. Patient is alert, O x 4. RN was notified of patient's request. Addendum: 08/18/20 at 1656 by MATEO WEI PT Amended: Links added.
[2020-08-18] MEDS: NovoLOG Insulin Flexpen SUBQ SCH ×2 (17:27→20:49)
--- NOTE | 2020-08-18 17:31 | Consultation ---
DATE OF CONSULTATION: 08/18/2020 INFECTIOUS DISEASES CONSULTATION CONSULTING PHYSICIAN: Wicho Villa MD REFERRING PHYSICIAN: Chris Tipton DO REASON FOR CONSULTATION: Evaluation of the patient for pneumonia, COVID-19, and UTI. HISTORY OF PRESENT ILLNESS: The patient is an 84-year-old male from [facility], who was admitted to this medical center with shortness of breath. The patient was found to be hypoxic. He was started on 6 L of oxygen. The patient's COVID test was positive and also the patient has been complaining of some dysuria. Urine culture is positive for gram-negative rods. Infectious Diseases consultation has been requested for further evaluation of the patient and antibiotic management. PAST MEDICAL HISTORY: 1. CVA with right-sided weakness. 2. History of right bundle-branch block. 3. Hypertension. 4. Diabetes. 5. History of renal insufficiency. ALLERGIES: No known drug allergies. SOCIAL HISTORY: Negative for alcohol, drug abuse, or smoking. The [facility] a [facility]. PHYSICAL EXAMINATION: VITAL SIGNS: Temperature 98, blood pressure 122/71, pulse 79, respiratory rate 18. HEENT: No pale conjunctivae. No icterus. NECK: No JVD. CHEST: Bilateral expansion. ABDOMEN: Soft, nontender. EXTREMITIES: No cyanosis. NEUROLOGIC: Awake and alert. LABORATORY AND DIAGNOSTIC DATA: White blood cells 5, hemoglobin 16, platelet 192,000. UA shows 60-80 white blood cells. BUN 37, creatinine 1.8. ALT, AST, and alkaline phosphatase unremarkable. COVID assay positive. Urine culture is growing gram-negative rods, more than 100,000 colonies. ASSESSMENT: The patient is an 84-year-old male with multiple medical problems as listed above, who has: 1. COVID pneumonia/hypoxemia. 2. UTI/cystitis (the patient has dysuria x2 days prior to admission, urine culture is growing gram-negative rods). 3. Normal WBC. 4. Afebrile. PLAN: 1. We will continue the patient on Zithromax, Rocephin, and dexamethasone day #1. 2. We will start the patient on remdesivir with close monitoring of renal function. 3. We will continue the patient on anticoagulation. 4. Monitor CBC. 5. Monitor BMP. 6. Monitor cultures. 7. Monitor chest x-ray. 8. We will monitor and D-dimer. 9. Based on the patient's clinical course and labs, we will do further recommendations. Thank you. Wicho Villa M.D. DR: Jared JOB#: [id number] CC:
[2020-08-18] MEDS: Eliquis 5mg tablet ORAL SCH (17:38)
--- NOTE | 2020-08-18 18:21 | NUR ---
NURSE HAND-OFF REPORT: Important Events on Shift:[Pt admitted today with hypoxia. No remarkable events] Patient Status: [In bed awake stable] Diet: [Cardiac sodft easy chew] Pending Orders: [] Pending Results/Labs:[] Pending MD notification:[Please endorse to day RN follow up with Dr Alarcon about eliquis 5mg indication] Latest Vital Signs: Temperature 96.3 , Pulse 66 , B/P 110 /52 , Respiratory Rate 18 , O2 SAT 96 , Room Air, O2 Flow Rate 6.0 . Vital Sign Comment: [pt slightly tachy but asymptomatic] EKG Rhythm: Sinus Rhythm Rhythm change?: Y MD Notified?: N - MD Response: Latest Wong Fall Score: 40 Fall Risk: Medium Risk Safety Measures: Call light Within Reach, Bed Alarm Zone 1, Side Rails Side Rails x2, Bed position Low and Locked. Fall Precautions: Yellow Socks Patient Fall Education Report given to [Pending Rn assignment]. Addendum: 08/18/20 at 1943 by Gisel Agrawal RN NURSE NOTES: Report given to Emerson ADAMS. All information about the pt changing his mind about his code status told to Emerson. Endorsed that pt wished should be relayed to the primary RN in the morning.
--- NOTE | 2020-08-18 18:27 | Consultation ---
Consult Note Consult Note I am asked to evaluate the patient at the request of renal failure Patient is an 84-year-old male sent in [facility] for decreased oxygen saturation. Patient recent positive coronavirus testing at the facility. Been started on supplemental oxygen by ambulance. Patient is currently on 5 L. Oxygen saturation had dropped into the 80s. Allergies: No Known Allergies (Unverified , 01/04/19) Hx Cardiac Problems: Yes - Anemia Hx Hypertension: Yes Hx Diabetes: Yes Hx Gastrointestinal Problems: Yes - GERD Hx Cerebrovascular Accident: Yes - right sided deficit PHYSICAL EXAMINATION: VITAL SIGNS: Show blood pressure of 125/62, pulse is 110, respirations 18, and temperature 98.5. HEAD AND NECK: Showed no JVD. LUNGS: Coarse rhonchi. CARDIOVASCULAR: Regular S1 and S2 with no gallop or murmur. ABDOMEN: Soft. EXTREMITIES: No pitting edema. LABORATORY AND DIAGNOSTIC DATA: Labs show white count of 5.1, hemoglobin 16, hematocrit 48, and platelet count is 192. Sodium is 135, potassium 4.5, BUN of 37, creatinine 1.8, and glucose of 438. Troponin is negative. His BNP was more than 1000. . Assessment/Plan Impression: Renal failure, mainly dehydration, possible underlying CKD Hypoxia, coronavirus detected CVA with old hemiparesis Hypertension Diabetes, hypoalbuminemia BPH Suggestions: Antibiotics Slow hydrate with normal saline Monitor renal parameters Keep the blood pressure blood sugar in check Per orders Devonte Zuniga MD Aug 18, 2020 18:27
--- NOTE | 2020-08-18 18:35 | NUR ---
NURSE NOTES: Pt called me to his room wanted to clarify his code status. Says he wants to be resuscitated. I asked him about the POLSt in his record he says to ignore it, that that is only for "Extreme situation" that he is sure he wants to be resuscitated and that he will "Sign whatever paper needed". Pt is stable and I will endorse to night tn to please tell day rn tomorrow to relay this information to Dr Alarcon (he is the one who ordered the DNR/DNI per pt request) and to Dr. Tipton who is the primary Addendum: 08/18/20 at 1949 by Gisel Agrawal RN I notified Charge RNs Avinash and Leanna. I notified Dr. Alarcon of pt wishes and ordered new code status. Night RN also informed of changes.
--- NOTE | 2020-08-18 19:20 | NUR ---
NURSE NOTES: Patient received from BRYAN Batres. Patient is awake, alert and oriented x 4. Patient is talkative and able to verbalize his needs. No complaints as of right now. Per AM RN, patient changed his mind and now wishes his code status to be changed to full code, Dr. Alarcon is aware. AM nurse changed the status to full code but POLST is noted to be DNI/DNR. Patient is on nasal cannula 5 L, with no signs of acute respiratory distress noted. Patient has a condom catheter and requested for a urinal. Patient has a right 20 gauge AC with NS running at 50 ml/hr. Bed is in the lowest position and locked, call light within reach. Will continue to monitor.
[2020-08-18 20:00] VITALS: BP 111/50
[2020-08-18] MEDS ORDERED: cefTRIAXone 1 GM in D5W 55 ML IVPB SCH (22:00)
[2020-08-18] MEDS: Miralax 17gm pkt ORAL PRN (23:14)
[2020-08-19] VITALS: BP 100/48
--- NOTE | 2020-08-19 03:53 | NUR ---
NURSE NOTES: Attempted to perform an ECG tracing for this patient. Patient refused and patient said that he does not want to be disturbed right now. patient asked me to leave. Educated the patient what the procedure is for. Patient asked me to leave. Will attempt for an ECG tracing again.
[2020-08-19 04:00] VITALS: BP 139/50
[2020-08-19] MEDS: NovoLOG Insulin Flexpen SUBQ SCH ×4 (06:30→22:08)
--- NOTE | 2020-08-19 06:35 | NUR ---
NURSE NOTES: Left a message to Dr. Villa regarding patient's positive UA culture ESBL. Awaiting for call back.
--- NOTE | 2020-08-19 07:40 | NUR ---
NURSE HAND-OFF REPORT: Important Events on Shift:[Patient positive for ESBL in urine. Informed Dr. Villa, discontinue rocephin per Dr. Villa. Start Invanz. Patient refused ECG tracing, said that he does not want it. Asked patient multiple times but continually said no, said that he just wants to be cleaned. ] Patient Status: [Stable, full code] Diet: [] Pending Orders: [] Pending Results/Labs:[] Pending MD notification:[] Latest Vital Signs: Temperature 97.1 , Pulse 82 , B/P 139 /50 , Respiratory Rate 21 , O2 SAT 97 , Nasal Cannula, O2 Flow Rate 5.0 . Vital Sign Comment: [] EKG Rhythm: Sinus Rhythm w/ BBB Rhythm change?: MD Notified?: N - MD Response: Latest Wong Fall Score: 40 Fall Risk: Medium Risk Safety Measures: Call light Within Reach, Bed Alarm Zone 1, Side Rails Side Rails x2, Bed position Low and Locked. Fall Precautions: Yellow Socks Yellow Gown Patient Fall Education Report given to [BRYAN Samano].
--- NOTE | 2020-08-19 07:42 | NUR ---
NURSE NOTES: pt is verbally responsive, alert and awake in bed. respiration is even and unlabored with O2 @2l/min via NC. HOB elevated. no pain noted. no episodes of coughing noted at this time. call light is within reach.
[2020-08-19 08:00] VITALS: BP 152/66
--- NOTE | 2020-08-19 08:10 | Infectious Diseases Prog Note ---
Assessment/Plan 84yo M with: Afebrile Normal WBC Lymphopenia COVID pneumonia, severe Acute hypoxic resp failure 2/2 COVID pna UTI/cystitis 08/17 BCx NTD UCx +ESBL E.coli CXR: No significant change in tortuosity/ectasia of the thoracic aorta. Negative for cardiac enlargement. Negative for focal consolidation, pneumothorax or pleural fluid collections. COVID rapid test positive Cr 1.8, improving Plan: Start RDV #1/5 given improved CATHERINE Cont dexamethasone 6mg daily #2/10 Cont ertapenem #1/5 for UTI Cont azithro #2/5 given COVID pna, empiric in case of superinfection Convalescent plasma unfortunately not available at this institution so unable to give, additionally unclear if it improves mortality/outcomes or not Monitor CBC/CMP Monitor temp curve, hemodynamics Monitor resp status D/w RN and pharmacy at length Thank you for this consult. [facility] will continue to follow. Subjective Allergies: Coded Allergies: No Known Allergies (Unverified , 01/04/19) AF NAD on 5L NC CATHERINE improved, starting RDV today Feels that breathing is stable Objective Last 24 Hour Vital Signs Date Time Temp Pulse Resp B/P (MAP) Pulse Ox O2 Delivery O2 Flow Rate FiO2 08/19/20 04:00 97.1 82 21 139/50 (79) 97 08/19/20 04:00 74 08/19/20 00:00 98.3 64 20 100/48 (65) 96 08/19/20 00:00 81 08/18/20 21:00 Nasal Cannula 5.0 08/18/20 20:00 81 08/18/20 20:00 98.5 62 20 111/50 (70) 96 08/18/20 16:00 96.3 96 18 110/52 (71) 96 08/18/20 16:00 66 08/18/20 12:00 98.5 111 18 125/62 (83) 96 08/18/20 12:00 107 08/18/20 11:46 Nasal Cannula 6.0 08/18/20 09:55 98.1 79 21 122/71 98 Room Air Height (Feet): 5 Height (Inches): 8.00 Weight (Pounds): 163 Respiratory/Chest: normal breath sounds Gen: NAD HEENT: NCAT Pulm: BL chest rise Abd: Non-distended Ext: No c/c/e Skin: No visible rashes Neuro: Awake, interactive Microbiology Date/Time Source Procedure Growth Status 08/18/20 10:05 Rectum Received 08/18/20 01:00 Nasopharynx SARS-CoV-2 RdRp Gene Assay - Final Complete 08/17/20 18:19 Urine,Clean Catch Urine Culture - Final Escherichia Coli - Esbl Complete 08/17/20 18:18 Blood Blood Culture - Preliminary NO GROWTH AFTER 24 HOURS Resulted 08/17/20 18:04 Blood Blood Culture - Preliminary NO GROWTH AFTER 24 HOURS Resulted Laboratory Tests Test 08/18/20 20:44 POC Whole Blood Glucose 166 MG/DL (74-106) H Current Medications Medications (Trade) Dose Ordered Sig/Amaya Route PRN Reason Start Time Stop Time Status Last Admin Dose Admin Acetaminophen (Tylenol) 650 mg Q4H PRN ORAL Temp >100.5 08/17/20 19:45 09/16/20 19:44 Albuterol/ Ipratropium (Combivent Respimat) 1 puff Q4H PRN INH Shortness of Breath 08/18/20 13:00 09/17/20 12:59 Apixaban (Eliquis) 5 mg BID ORAL 08/18/20 18:00 11/16/20 17:59 08/18/20 17:38 Azithromycin 250 mg/Dextrose 275 ml @ 275 mls/hr Q24HRS IV 08/19/20 10:00 08/24/20 09:59 Dexamethasone (Decadron) 6 mg DAILY ORAL 08/18/20 09:00 08/26/20 12:00 08/18/20 09:17 Dextrose (Dextrose 50%) 25 ml Q30M PRN IV Hypoglycemia 08/18/20 11:45 11/16/20 11:44 Dextrose (Dextrose 50%) 50 ml Q30M PRN IV Hypoglycemia 08/18/20 11:45 11/16/20 11:44 Diazepam (Valium) 5 mg HSPRN PRN ORAL For Anxiety 08/17/20 19:45 08/24/20 19:44 08/18/20 23:14 Ertapenem 0.5 gm/ Sodium Chloride 55 ml @ 110 mls/hr Q24H IV 08/19/20 10:00 08/24/20 09:59 Insulin Aspart (NovoLOG) BEFORE MEALS AND HS SUBQ 08/18/20 16:30 11/16/20 16:29 08/18/20 20:49 Ondansetron HCl (Zofran) 4 mg Q6H PRN IVP Nausea & Vomiting 08/17/20 19:45 09/16/20 19:44 Pantoprazole (Protonix) 40 mg DAILY ORAL 08/18/20 09:00 09/17/20 08:59 08/18/20 09:17 Polyethylene Glycol (Miralax) 17 gm DAILYPRN PRN ORAL Constipation 08/17/20 19:45 09/16/20 19:44 08/18/20 23:14 Promethazine HCl/ Codeine (Phenergan with Codeine) 5 ml Q6H PRN ORAL cough 08/17/20 19:45 09/16/20 19:44 Sodium Chloride 1,000 ml @ 50 mls/hr Q20H IV 08/18/20 18:30 09/17/20 18:29 08/18/20 19:34 Tamsulosin HCl (Flomax) 0.4 mg BID ORAL 08/18/20 09:00 09/17/20 08:59 08/18/20 17:38 Aneta Nguyen M.D. Aug 19, 2020 08:10
[2020-08-19 08:37] LABS: HEMATOCRIT 50.3 % (42.0-52.0); HEMOGLOBIN 16.9 G/DL (14.2-18.0); MEAN CORPUSCULAR VOLUME 80 FL (80-99); PLATELET COUNT 191 K/UL (150-450); RED BLOOD COUNT 6.27 M/UL (4.70-6.10); RED CELL DISTRIBUTION WIDTH 13.4 % (11.6-14.8); WHITE BLOOD COUNT 10.2 K/UL (4.8-10.8)
[2020-08-19 09:08] LABS: ALANINE AMINOTRANSFERASE 20 U/L (12-78); ALBUMIN/GLOBULIN RATIO 0.6 (1.0-2.7); ALKALINE PHOSPHATASE 95 U/L (46-116); ANION GAP 9 mmol/L (5-15); ASPARTATE AMINO TRANSFERASE 22 U/L (15-37); BILIRUBIN,TOTAL 0.4 MG/DL (0.2-1.0); BLOOD UREA NITROGEN 38 mg/dL (7-18); CALCIUM 9.3 MG/DL (8.5-10.1); CARBON DIOXIDE 25 MMOL/L (21-32); CHLORIDE 106 MMOL/L (98-107); CHOLESTEROL 178 MG/DL (< 200); CREATININE 1.6 MG/DL (0.55-1.30); HDL CHOLESTEROL 38 MG/DL (40-60); POTASSIUM 4.3 MMOL/L (3.5-5.1); SODIUM 140 MMOL/L (136-145); TRIGLYCERIDES 96 MG/DL (30-150)
[2020-08-19 09:11] LABS: PHOSPHORUS 2.8 MG/DL (2.5-4.9)
--- NOTE | 2020-08-19 09:16 | General Progress Note ---
Subjective Constitutional: Reports: weakness Allergies: Coded Allergies: No Known Allergies (Unverified , 01/04/19) All Systems: reviewed and negative except above Subjective o2nc sleep Objective Last 24 Hour Vital Signs Date Time Temp Pulse Resp B/P (MAP) Pulse Ox O2 Delivery O2 Flow Rate FiO2 08/19/20 04:00 97.1 82 21 139/50 (79) 97 08/19/20 04:00 74 08/19/20 00:00 98.3 64 20 100/48 (65) 96 08/19/20 00:00 81 08/18/20 21:00 Nasal Cannula 5.0 08/18/20 20:00 81 08/18/20 20:00 98.5 62 20 111/50 (70) 96 08/18/20 16:00 96.3 96 18 110/52 (71) 96 08/18/20 16:00 66 08/18/20 12:00 98.5 111 18 125/62 (83) 96 08/18/20 12:00 107 08/18/20 11:46 Nasal Cannula 6.0 08/18/20 09:55 98.1 79 21 122/71 98 Room Air Intake and Output 08/18/20 08/19/20 19:00 07:00 Intake Total 350 ml Balance 350 ml Intake Oral 350 ml # Voids 22 # Bowel Movements 1 Laboratory Tests 08/18/20 20:44: POC Whole Blood Glucose 166H 08/19/20 07:37: White Blood Count 10.2#, Red Blood Count 6.27H, Hemoglobin 16.9, Hematocrit 50.3, Mean Corpuscular Volume 80, Mean Corpuscular Hemoglobin 26.9L, Mean Corpuscular Hemoglobin Concent 33.5, Red Cell Distribution Width 13.4, Platelet Count 191, Mean Platelet Volume 7.8, Neutrophils (%) (Auto) , Lymphocytes (%) (Auto) , Monocytes (%) (Auto) , Eosinophils (%) (Auto) , Basophils (%) (Auto) , Neutrophils % (Manual) [Pending], Lymphocytes % (Manual) [Pending], Platelet Estimate [Pending], Platelet Morphology [Pending], D-Dimer 0.44, Sodium Level [Pending], Potassium Level [Pending], Chloride Level [Pending], Carbon Dioxide Level [Pending], Blood Urea Nitrogen [Pending], Creatinine [Pending], Estimat Glomerular Filtration Rate [Pending], Glucose Level [Pending], Hemoglobin A1c [Pending], Uric Acid [Pending], Calcium Level [Pending], Phosphorus Level [Pending], Magnesium Level [Pending], Ferritin [Pending], Total Bilirubin [Pending], Gamma Glutamyl Transpeptidase [Pending], Aspartate Amino Transf (AST/SGOT) [Pending], Alanine Aminotransferase (ALT/SGPT) [Pending], Alkaline Phosphatase [Pending], Lactate Dehydrogenase [Pending], Troponin I [Pending], C- Reactive Protein, Quantitative [Pending], Pro-B-Type Natriuretic Peptide [Pending], Total Protein [Pending], Albumin [Pending], Globulin [Pending], Triglycerides Level [Pending], Cholesterol Level [Pending], LDL Cholesterol [Pending], HDL Cholesterol [Pending], Cholesterol/HDL Ratio [Pending], Thyroid Stimulating Hormone (TSH) [Pending] Height (Feet): 5 Height (Inches): 8.00 Weight (Pounds): 163 General Appearance: lethargic EENT: normal ENT inspection Neck: normal alignment Cardiovascular: normal peripheral pulses, normal rate, regular rhythm Respiratory/Chest: chest wall non-tender, lungs clear, normal breath sounds Abdomen: normal bowel sounds, non tender, soft Extremities: normal inspection Edema: no edema noted Arm (L), no edema noted Arm (R), no edema noted Leg (L), no edema noted Leg (R), no edema noted Pedal (L), no edema noted Pedal (R), no edema noted Generalized Neurologic: motor weakness Skin: normal pigmentation, warm/dry Assessment/Plan Problem List: (1) Diabetes mellitus ICD Codes: E11.9 - Type 2 diabetes mellitus without complications SNOMED: 39269839 (2) Episode of generalized weakness ICD Codes: R53.1 - Weakness SNOMED: 40292634 (3) Sepsis due to urinary tract infection ICD Codes: A41.9 - Sepsis, unspecified organism; N39.0 - Urinary tract infection, site not specified SNOMED: 543713407 (4) UTI (urinary tract infection) ICD Codes: N39.0 - Urinary tract infection, site not specified SNOMED: 10602108 (5) Hypertension ICD Codes: I10 - Essential (primary) hypertension SNOMED: 56757684 (6) Renal failure (ARF), acute on chronic ICD Codes: N17.9 - Acute kidney failure, unspecified; N18.9 - Chronic kidney disease, unspecified SNOMED: 498788584 (7) Cerebrovascular accident (CVA) ICD Codes: I63.9 - Cerebral infarction, unspecified SNOMED: 668735391 (8) 2019 novel coronavirus detected ICD Codes: U07.1 - COVID-19 SNOMED: 1893877707158928 Status: unchanged Assessment/Plan: o2 pulm tx abx pt diet cbc bmp am Chris TiptonReny DO Aug 19, 2020 09:16
[2020-08-19] MEDS: Tamsulosin 0.4mg cap ORAL SCH ×2 (09:28→17:56)
[2020-08-19] MEDS: Eliquis 5mg tablet ORAL SCH ×2 (09:29→17:56)
[2020-08-19] MEDS: Azithromycin 250 MG in D5W 275 ML IV SCH (09:31)
[2020-08-19] MEDS ORDERED: Ertapenem 0.5 GM in NS 55 ML IV SCH (10:00)
[2020-08-19 12:00] VITALS: BP 114/69
--- NOTE | 2020-08-19 12:15 | Cardiac Electrophysiology PN ---
Assessment/Plan Assessment/Plan 1. Shortness of breath due to COVID-19 pneumonia. The patient is already on Remdesevir, ceftriaxone, albuterol, dexamethasone. The patient is also on apixaban. 2. Hypertension. Blood pressure currently is stable, off antihypertensive agents. 3. Diabetes. 4. History of CVA with hemiparesis. 5. Benign prostatic hypertrophy. Subjective Subjective Alert in NAD on 5 liter Nasal Cannula. In SR with PACs. In COvid isolation Objective Last 24 Hour Vital Signs Date Time Temp Pulse Resp B/P (MAP) Pulse Ox O2 Delivery O2 Flow Rate FiO2 08/19/20 08:00 97.9 80 18 152/66 (94) 95 08/19/20 04:00 97.1 82 21 139/50 (79) 97 08/19/20 04:00 74 08/19/20 00:00 98.3 64 20 100/48 (65) 96 08/19/20 00:00 81 08/18/20 21:00 Nasal Cannula 5.0 08/18/20 20:00 81 08/18/20 20:00 98.5 62 20 111/50 (70) 96 08/18/20 16:00 96.3 96 18 110/52 (71) 96 08/18/20 16:00 66 Intake and Output 08/18/20 08/19/20 19:00 07:00 Intake Total 350 ml Balance 350 ml Intake Oral 350 ml # Voids 22 # Bowel Movements 1 Laboratory Tests Test 08/18/20 20:44 08/19/20 07:37 08/19/20 11:52 POC Whole Blood Glucose 166 MG/DL (74-106) H 127 MG/DL (74-106) H White Blood Count 10.2 K/UL (4.8-10.8) # Red Blood Count 6.27 M/UL (4.70-6.10) H Hemoglobin 16.9 G/DL (14.2-18.0) Hematocrit 50.3 % (42.0-52.0) Mean Corpuscular Volume 80 FL (80-99) Mean Corpuscular Hemoglobin 26.9 PG (27.0-31.0) L Mean Corpuscular Hemoglobin Concent 33.5 G/DL (32.0-36.0) Red Cell Distribution Width 13.4 % (11.6-14.8) Platelet Count 191 K/UL (150-450) Mean Platelet Volume 7.8 FL (6.5-10.1) Neutrophils (%) (Auto) % (45.0-75.0) Lymphocytes (%) (Auto) % (20.0-45.0) Monocytes (%) (Auto) % (1.0-10.0) Eosinophils (%) (Auto) % (0.0-3.0) Basophils (%) (Auto) % (0.0-2.0) Differential Total Cells Counted 100 Neutrophils % (Manual) 87 % (45-75) H Lymphocytes % (Manual) 7 % (20-45) L Monocytes % (Manual) 5 % (1-10) Eosinophils % (Manual) 1 % (0-3) Basophils % (Manual) 0 % (0-2) Band Neutrophils 0 % (0-8) Platelet Estimate Adequate Platelet Morphology Normal Red Blood Cell Morphology Normal D-Dimer 0.44 mg/L FEU (0.00-0.49) Sodium Level 140 MMOL/L (136-145) Potassium Level 4.3 MMOL/L (3.5-5.1) Chloride Level 106 MMOL/L (98-107) Carbon Dioxide Level 25 MMOL/L (21-32) Anion Gap 9 mmol/L (5-15) Blood Urea Nitrogen 38 mg/dL (7-18) H Creatinine 1.6 MG/DL (0.55-1.30) H Estimat Glomerular Filtration Rate 41.2 mL/min (>60) Glucose Level 93 MG/DL (74-106) # Hemoglobin A1c 6.1 % (4.3-6.0) H Uric Acid 7.0 MG/DL (2.6-7.2) Calcium Level 9.3 MG/DL (8.5-10.1) Phosphorus Level 2.8 MG/DL (2.5-4.9) Magnesium Level 2.2 MG/DL (1.8-2.4) Ferritin 651 NG/ML (8-388) H Total Bilirubin 0.4 MG/DL (0.2-1.0) Gamma Glutamyl Transpeptidase 34 U/L (5-85) Aspartate Amino Transf (AST/SGOT) 22 U/L (15-37) Alanine Aminotransferase (ALT/SGPT) 20 U/L (12-78) Alkaline Phosphatase 95 U/L (46-116) Lactate Dehydrogenase 267 U/L (81-234) H Troponin I 0.010 ng/mL (0.000-0.056) C-Reactive Protein, Quantitative 13.2 mg/dL (0.00-0.90) H Pro-B-Type Natriuretic Peptide Pending Total Protein 8.1 G/DL (6.4-8.2) Albumin 3.0 G/DL (3.4-5.0) L Globulin 5.1 g/dL Albumin/Globulin Ratio 0.6 (1.0-2.7) L Triglycerides Level 96 MG/DL (30-150) Cholesterol Level 178 MG/DL (< 200) LDL Cholesterol 120 mg/dL (<100) H HDL Cholesterol 38 MG/DL (40-60) L Cholesterol/HDL Ratio 4.7 (3.3-4.4) H Thyroid Stimulating Hormone (TSH) 0.367 uiU/mL (0.358-3.740) Microbiology Date/Time Source Procedure Growth Status 08/18/20 10:05 Rectum Received 08/18/20 01:00 Nasopharynx SARS-CoV-2 RdRp Gene Assay - Final Complete 08/17/20 18:19 Urine,Clean Catch Urine Culture - Final Escherichia Coli - Esbl Complete 08/17/20 18:18 Blood Blood Culture - Preliminary NO GROWTH AFTER 24 HOURS Resulted 08/17/20 18:04 Blood Blood Culture - Preliminary NO GROWTH AFTER 24 HOURS Resulted Objective HEAD AND NECK: no JVD. LUNGS: Coarse rhonchi. CARDIOVASCULAR: Regular S1 and S2 with no gallop or murmur. ABDOMEN: Soft. EXTREMITIES: No pitting edema. Sabino Goncalves MD Aug 19, 2020 12:15
--- NOTE | 2020-08-19 14:52 | NUR ---
CASE MANAGEMENT:REVIEW BIBA FROM [facility] CC; SOB . SATS 86% ON RA SI: COVID INFECTION. HYPOXIA 97.0 65 24 104/84 94% ON 5L/NC BUN+36 CR+2.0 IS: IV DECADRON IV ROCEPHIN HEPARIN SQ URINE CX BLOOD CX CXR : TO TELEMETRY
[2020-08-19] MEDS ORDERED: Loading Dose:Remdesivir 200mg/NS 210ml IV SCH ×2 (15:00)
[2020-08-19 16:00] VITALS: BP 115/55
--- NOTE | 2020-08-19 17:17 | Nephrology Progress Note ---
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 Hypertension Diabetes, hypoalbuminemia BPH Plan Antibiotics Slow hydrate with normal saline Monitor renal parameters Keep the blood pressure blood sugar in check Per orders Subjective ROS Limited/Unobtainable: No Constitutional: Reports: malaise Objective Objective Last 24 Hour Vital Signs Date Time Temp Pulse Resp B/P (MAP) Pulse Ox O2 Delivery O2 Flow Rate FiO2 08/19/20 12:00 82 08/19/20 12:00 97.3 84 20 114/69 (84) 95 08/19/20 09:00 Nasal Cannula 5.0 08/19/20 08:00 97.9 80 18 152/66 (94) 95 08/19/20 04:00 97.1 82 21 139/50 (79) 97 08/19/20 04:00 74 08/19/20 00:00 98.3 64 20 100/48 (65) 96 08/19/20 00:00 81 08/18/20 21:00 Nasal Cannula 5.0 08/18/20 20:00 81 08/18/20 20:00 98.5 62 20 111/50 (70) 96 Intake and Output 08/18/20 08/19/20 19:00 07:00 Intake Total 350 ml Balance 350 ml Intake Oral 350 ml # Voids 22 # Bowel Movements 1 Current Medications Medications (Trade) Dose Ordered Sig/Amaya Route PRN Reason Start Time Stop Time Status Last Admin Dose Admin Acetaminophen (Tylenol) 650 mg Q4H PRN ORAL Temp >100.5 08/17/20 19:45 09/16/20 19:44 Albuterol/ Ipratropium (Combivent Respimat) 1 puff Q4H PRN INH Shortness of Breath 08/18/20 13:00 09/17/20 12:59 Apixaban (Eliquis) 5 mg BID ORAL 08/18/20 18:00 11/16/20 17:59 08/19/20 09:29 Azithromycin 250 mg/Dextrose 275 ml @ 275 mls/hr Q24HRS IV 08/19/20 10:00 08/24/20 09:59 08/19/20 09:31 Dexamethasone (Decadron) 6 mg DAILY ORAL 08/18/20 09:00 08/26/20 12:00 08/19/20 09:29 Dextrose (Dextrose 50%) 25 ml Q30M PRN IV Hypoglycemia 08/18/20 11:45 11/16/20 11:44 Dextrose (Dextrose 50%) 50 ml Q30M PRN IV Hypoglycemia 08/18/20 11:45 11/16/20 11:44 Diazepam (Valium) 5 mg HSPRN PRN ORAL For Anxiety 08/17/20 19:45 08/24/20 19:44 08/18/20 23:14 Ertapenem 1 gm/ Sodium Chloride 55 ml @ 110 mls/hr Q24H IV 08/20/20 09:00 08/25/20 08:59 Insulin Aspart (NovoLOG) BEFORE MEALS AND HS SUBQ 08/18/20 16:30 11/16/20 16:29 08/18/20 20:49 Ondansetron HCl (Zofran) 4 mg Q6H PRN IVP Nausea & Vomiting 08/17/20 19:45 09/16/20 19:44 Pantoprazole (Protonix) 40 mg DAILY ORAL 08/18/20 09:00 09/17/20 08:59 08/19/20 09:28 Polyethylene Glycol (Miralax) 17 gm DAILYPRN PRN ORAL Constipation 08/17/20 19:45 09/16/20 19:44 08/18/20 23:14 Promethazine HCl/ Codeine (Phenergan with Codeine) 5 ml Q6H PRN ORAL cough 08/17/20 19:45 09/16/20 19:44 Remdesivir 100 mg/ Sodium Chloride 250 ml @ 250 mls/hr Q24H IV 08/20/20 15:00 08/23/20 15:59 Sodium Chloride 1,000 ml @ 50 mls/hr Q20H IV 08/18/20 18:30 09/17/20 18:29 08/19/20 15:19 Tamsulosin HCl (Flomax) 0.4 mg BID ORAL 08/18/20 09:00 09/17/20 08:59 12/14/20 09:28 Laboratory Tests 08/18/20 20:44: POC Whole Blood Glucose 166H 08/19/20 07:37: White Blood Count 10.2#, Red Blood Count 6.27H, Hemoglobin 16.9, Hematocrit 50.3, Mean Corpuscular Volume 80, Mean Corpuscular Hemoglobin 26.9L, Mean Corpuscular Hemoglobin Concent 33.5, Red Cell Distribution Width 13.4, Platelet Count 191, Mean Platelet Volume 7.8, Neutrophils (%) (Auto) , Lymphocytes (%) (Auto) , Monocytes (%) (Auto) , Eosinophils (%) (Auto) , Basophils (%) (Auto) , Differential Total Cells Counted 100, Neutrophils % (Manual) 87H, Lymphocytes % (Manual) 7L, Monocytes % (Manual) 5, Eosinophils % (Manual) 1, Basophils % (Manual) 0, Band Neutrophils 0, Platelet Estimate Adequate, Platelet Morphology Normal, Red Blood Cell Morphology Normal, D-Dimer 0.44, Sodium Level 140, Potassium Level 4.3, Chloride Level 106, Carbon Dioxide Level 25, Anion Gap 9, Blood Urea Nitrogen 38H, Creatinine 1.6H, Estimat Glomerular Filtration Rate 41.2, Glucose Level 93#, Hemoglobin A1c 6.1H, Uric Acid 7.0, Calcium Level 9.3, Phosphorus Level 2.8, Magnesium Level 2.2, Ferritin 651H, Total Bilirubin 0.4, Gamma Glutamyl Transpeptidase 34, Aspartate Amino Transf (AST/SGOT) 22, Alanine Aminotransferase (ALT/SGPT) 20, Alkaline Phosphatase 95, Lactate Dehydrogenase 267H, Troponin I 0.010, C-Reactive Protein, Quantitative 13.2H, Pro-B-Type Natriuretic Peptide [Pending], Total Protein 8.1, Albumin 3.0L, Globulin 5.1, Albumin/Globulin Ratio 0.6L, Triglycerides Level 96, Cholesterol Level 178, LDL Cholesterol 120H, HDL Cholesterol 38L, Cholesterol/HDL Ratio 4.7H, Thyroid Stimulating Hormone (TSH) 0.367 08/19/20 11:52: POC Whole Blood Glucose 127H 08/19/20 16:45: POC Whole Blood Glucose [Pending] Height (Feet): 5 Height (Inches): 8.00 Weight (Pounds): 163 General Appearance: lethargic Cardiovascular: normal rate Respiratory/Chest: decreased breath sounds Abdomen: soft Devonte Zuniga MD Aug 19, 2020 17:17
--- NOTE | 2020-08-19 17:29 | Diagnostic Imaging Report ---
Indication: Acute renal failure Technique: Grayscale and duplex images of the kidneys, retroperitoneum, and bladder were obtained. Comparison: none Findings: Right kidney measures 12.6 cm in length. Left kidney measures 10.9 cm in length. Both kidneys demonstrate normal echogenicity. No hydronephrosis. Both kidneys demonstrate multiple cysts, with very large cysts evident on on the right. Normal inferior vena cava. Bladder demonstrates bladder wall trabeculation. 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
--- NOTE | 2020-08-19 17:33 | Pulmonology Progress Note ---
Subjective ROS Limited/Unobtainable: No Allergies: Coded Allergies: No Known Allergies (Unverified , 01/04/19) All Systems: reviewed and negative except above Objective Last 24 Hour Vital Signs Date Time Temp Pulse Resp B/P (MAP) Pulse Ox O2 Delivery O2 Flow Rate FiO2 08/19/20 16:00 96.7 84 20 115/55 (75) 95 08/19/20 12:00 82 08/19/20 12:00 97.3 84 20 114/69 (84) 95 08/19/20 09:00 Nasal Cannula 5.0 08/19/20 08:00 97.9 80 18 152/66 (94) 95 08/19/20 04:00 97.1 82 21 139/50 (79) 97 08/19/20 04:00 74 08/19/20 00:00 98.3 64 20 100/48 (65) 96 08/19/20 00:00 81 08/18/20 21:00 Nasal Cannula 5.0 08/18/20 20:00 81 08/18/20 20:00 98.5 62 20 111/50 (70) 96 Intake and Output 08/18/20 08/19/20 19:00 07:00 Intake Total 350 ml Balance 350 ml Intake Oral 350 ml # Voids 22 # Bowel Movements 1 General Appearance: WD/WN HEENT: normocephalic, atraumatic Respiratory: chest wall non-tender, lungs clear Cardiovascular: normal peripheral pulses, regular rhythm Abdomen: normal bowel sounds, soft, non tender Genitourinary: normal external genitalia Extremities: no clubbing Neurologic: hardwood floor layer II-XII grossly normal Lymphatic: no neck adenopathy Microbiology Date/Time Source Procedure Growth Status 08/18/20 10:05 Rectum Received 08/18/20 01:00 Nasopharynx SARS-CoV-2 RdRp Gene Assay - Final Complete 08/17/20 18:19 Urine,Clean Catch Urine Culture - Final Escherichia Coli - Esbl Complete 08/17/20 18:18 Blood Blood Culture - Preliminary NO GROWTH AFTER 24 HOURS Resulted 08/17/20 18:04 Blood Blood Culture - Preliminary NO GROWTH AFTER 24 HOURS Resulted Laboratory Tests 08/18/20 20:44: POC Whole Blood Glucose 166H 08/19/20 07:37: White Blood Count 10.2#, Red Blood Count 6.27H, Hemoglobin 16.9, Hematocrit 50.3, Mean Corpuscular Volume 80, Mean Corpuscular Hemoglobin 26.9L, Mean Corpuscular Hemoglobin Concent 33.5, Red Cell Distribution Width 13.4, Platelet Count 191, Mean Platelet Volume 7.8, Neutrophils (%) (Auto) , Lymphocytes (%) (Auto) , Monocytes (%) (Auto) , Eosinophils (%) (Auto) , Basophils (%) (Auto) , Differential Total Cells Counted 100, Neutrophils % (Manual) 87H, Lymphocytes % (Manual) 7L, Monocytes % (Manual) 5, Eosinophils % (Manual) 1, Basophils % (Manual) 0, Band Neutrophils 0, Platelet Estimate Adequate, Platelet Morphology Normal, Red Blood Cell Morphology Normal, D-Dimer 0.44, Sodium Level 140, Pot assium Level 4.3, Chloride Level 106, Carbon Dioxide Level 25, Anion Gap 9, Blood Urea Nitrogen 38H, Creatinine 1.6H, Estimat Glomerular Filtration Rate 41.2, Glucose Level 93#, Hemoglobin A1c 6.1H, Uric Acid 7.0, Calcium Level 9.3, Phosphorus Level 2.8, Magnesium Level 2.2, Ferritin 651H, Total Bilirubin 0.4, Gamma Glutamyl Transpeptidase 34, Aspartate Amino Transf (AST/SGOT) 22, Alanine Aminotransferase (ALT/SGPT) 20, Alkaline Phosphatase 95, Lactate Dehydrogenase 267H, Troponin I 0.010, C-Reactive Protein, Quantitative 13.2H, Pro-B-Type Natriuretic Peptide [Pending], Total Protein 8.1, Albumin 3.0L, Globulin 5.1, Albumin/Globulin Ratio 0.6L, Triglycerides Level 96, Cholesterol Level 178, LDL Cholesterol 120H, HDL Cholesterol 38L, Cholesterol/HDL Ratio 4.7H, Thyroid Stimulating Hormone (TSH) 0.367 08/19/20 11:52: POC Whole Blood Glucose 127H 08/19/20 16:45: POC Whole Blood Glucose [Pending] Current Medications Medications (Trade) Dose Ordered Sig/Amaya Route PRN Reason Start Time Stop Time Status Last Admin Dose Admin Acetaminophen (Tylenol) 650 mg Q4H PRN ORAL Temp >100.5 08/17/20 19:45 09/16/20 19:44 Albuterol/ Ipratropium (Combivent Respimat) 1 puff Q4H PRN INH Shortness of Breath 08/18/20 13:00 09/17/20 12:59 Apixaban (Eliquis) 5 mg BID ORAL 08/18/20 18:00 11/16/20 17:59 08/19/20 09:29 Azithromycin 250 mg/Dextrose 275 ml @ 275 mls/hr Q24HRS IV 08/19/20 10:00 08/24/20 09:59 08/19/20 09:31 Dexamethasone (Decadron) 6 mg DAILY ORAL 08/18/20 09:00 08/26/20 12:00 08/19/20 09:29 Dextrose (Dextrose 50%) 25 ml Q30M PRN IV Hypoglycemia 08/18/20 11:45 11/16/20 11:44 Dextrose (Dextrose 50%) 50 ml Q30M PRN IV Hypoglycemia 08/18/20 11:45 11/16/20 11:44 Diazepam (Valium) 5 mg HSPRN PRN ORAL For Anxiety 08/17/20 19:45 08/24/20 19:44 08/18/20 23:14 Ertapenem 1 gm/ Sodium Chloride 55 ml @ 110 mls/hr Q24H IV 08/20/20 09:00 08/25/20 08:59 Insulin Aspart (NovoLOG) BEFORE MEALS AND HS SUBQ 08/18/20 16:30 11/16/20 16:29 08/18/20 20:49 Ondansetron HCl (Zofran) 4 mg Q6H PRN IVP Nausea & Vomiting 08/17/20 19:45 09/16/20 19:44 Pantoprazole (Protonix) 40 mg DAILY ORAL 08/18/20 09:00 09/17/20 08:59 08/19/20 09:28 Polyethylene Glycol (Miralax) 17 gm DAILYPRN PRN ORAL Constipation 08/17/20 19:45 09/16/20 19:44 08/18/20 23:14 Promethazine HCl/ Codeine (Phenergan with Codeine) 5 ml Q6H PRN ORAL cough 08/17/20 19:45 09/16/20 19:44 Remdesivir 100 mg/ Sodium Chloride 250 ml @ 250 mls/hr Q24H IV 08/20/20 15:00 08/23/20 15:59 Sodium Chloride 1,000 ml @ 50 mls/hr Q20H IV 08/18/20 18:30 09/17/20 18:29 08/19/20 15:19 Tamsulosin HCl (Flomax) 0.4 mg BID ORAL 08/18/20 09:00 09/17/20 08:59 08/19/20 09:28 Assessment/Plan Problems: (1) Hypoxia (2) 2019 novel coronavirus detected (3) CVA, old, hemiparesis (4) Hypertension (5) Diabetes mellitus (6) BPH (benign prostatic hyperplasia) Assessment/Plan all reviewed doing better respiratory isolation steroids and Remdesevir titrate fio2 to sat of 92% iv abx check inflammatory markers sliding scale diabetic diet Angelita Alarcon MD Aug 19, 2020 17:33
[2020-08-19] MEDS: Miralax 17gm pkt ORAL PRN (17:56)
--- NOTE | 2020-08-19 19:15 | NUR ---
NURSE NOTES: Received patient from BRYAN Samano. AOx3, able to verbalize needs. On 5L nasal cannula, saturating well. No complaints of pain or discomfort at this time. IV site flushed and asymptomatic. IVF running at a prescribed rate. Not in acute distress. Bed in lowest position, brakes engaged and bed alarm on. Bed rails raised x3. Call light placed within reach. Will continue to monitor.
--- NOTE | 2020-08-19 19:24 | NUR ---
HAND-OFF: Report given to SRIRAM/BRYAN.
[2020-08-19 20:00] VITALS: BP 114/47
[2020-08-20] VITALS: BP 116/52
[2020-08-20 04:00] VITALS: BP 125/56
[2020-08-20] MEDS: NovoLOG Insulin Flexpen SUBQ SCH ×4 (06:30→21:00)
--- NOTE | 2020-08-20 07:05 | NUR ---
NURSE NOTES: Received patient report from BRYAN Carrizales. Pt is AO x3. No pain or discomfort noted at this time. On 5L nasal cannula, saturating well. IVF running at a prescribed rate. Not in acute distress. Bed in lowest position, brakes engaged and bed alarm on. Bed rails raised x3. Call light placed within reach. Will continue to monitor.
[2020-08-20 07:15] LABS: HEMATOCRIT 42.5 % (42.0-52.0); HEMOGLOBIN 14.2 G/DL (14.2-18.0); MEAN CORPUSCULAR VOLUME 81 FL (80-99); PLATELET COUNT 163 K/UL (150-450); RED BLOOD COUNT 5.27 M/UL (4.70-6.10); RED CELL DISTRIBUTION WIDTH 13.4 % (11.6-14.8)
--- NOTE | 2020-08-20 07:22 | Infectious Diseases Prog Note ---
Assessment/Plan 84yo M with: Afebrile Normal WBC Lymphopenia COVID pneumonia, severe Acute hypoxic resp failure 2/2 COVID pna UTI/cystitis 08/17 BCx NTD UCx +ESBL E.coli CXR: No significant change in tortuosity/ectasia of the thoracic aorta. Negative for cardiac enlargement. Negative for focal consolidation, pneumothorax or pleural fluid collections. COVID rapid test positive Cr 1.8, improving 08/19 Renal US: Negative for hydronephrosis. 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 Bilateral renal cysts, large on the right. Plan: Cont RDV #2/5 given improved CATHERINE Cont dexamethasone 6mg daily #3/10 Cont ertapenem #2/5 for UTI Cont azithro #3/5 given COVID pna, empiric in case of superinfection Convalescent plasma unfortunately not available at this institution so unable to give, additionally unclear if it improves mortality/outcomes or not Monitor CBC/CMP Monitor temp curve, hemodynamics Monitor resp status D/w RN Thank you for this consult. [facility] will continue to follow. Subjective Allergies: Coded Allergies: No Known Allergies (Unverified , 01/04/19) AF NAD on 5L NC WBC 8.0 Sleeping calmly Objective Last 24 Hour Vital Signs Date Time Temp Pulse Resp B/P (MAP) Pulse Ox O2 Delivery O2 Flow Rate FiO2 08/20/20 04:00 95 08/20/20 04:00 97.6 71 20 125/56 (79) 94 08/20/20 00:00 97.5 74 20 116/52 (73) 95 08/20/20 00:00 76 08/19/20 21:00 Nasal Cannula 5.0 08/19/20 20:00 81 08/19/20 20:00 97.0 79 20 114/47 (69) 94 08/19/20 16:00 87 08/19/20 16:00 96.7 84 20 115/55 (75) 95 08/19/20 12:00 82 08/19/20 12:00 97.3 84 20 114/69 (84) 95 08/19/20 09:00 Nasal Cannula 5.0 08/19/20 08:00 97.9 80 18 152/66 (94) 95 Height (Feet): 5 Height (Inches): 8.00 Weight (Pounds): 163 Gen: NAD HEENT: NCAT Pulm: BL chest rise Abd: Non-distended Ext: No c/c/e Skin: No visible rashes Neuro: Awake, interactive Microbiology Date/Time Source Procedure Growth Status 08/18/20 10:05 Rectum Received 08/18/20 10:05 Nasal Nares MRSA Culture - Final NO METHICILLIN RESISTANT STAPH AUREUS... Complete 08/18/20 01:00 Nasopharynx SARS-CoV-2 RdRp Gene Assay - Final Complete 08/17/20 18:19 Urine,Clean Catch Urine Culture - Final Escherichia Coli - Esbl Complete 08/17/20 18:18 Blood Blood Culture - Preliminary NO GROWTH AFTER 48 HOURS Resulted 08/17/20 18:04 Blood Blood Culture - Preliminary NO GROWTH AFTER 48 HOURS Resulted Laboratory Tests Test 08/19/20 07:37 08/19/20 11:52 08/19/20 16:45 08/20/20 05:00 White Blood Count 10.2 K/UL (4.8-10.8) # 8.0 K/UL (4.8-10.8) Red Blood Count 6.27 M/UL (4.70-6.10) H 5.27 M/UL (4.70-6.10) Hemoglobin 16.9 G/DL (14.2-18.0) 14.2 G/DL (14.2-18.0) Hematocrit 50.3 % (42.0-52.0) 42.5 % (42.0-52.0) Mean Corpuscular Volume 80 FL (80-99) 81 FL (80-99) Mean Corpuscular Hemoglobin 26.9 PG (27.0-31.0) L 27.0 PG (27.0-31.0) Mean Corpuscular Hemoglobin Concent 33.5 G/DL (32.0-36.0) 33.5 G/DL (32.0-36.0) Red Cell Distribution Width 13.4 % (11.6-14.8) 13.4 % (11.6-14.8) Platelet Count 191 K/UL (150-450) 163 K/UL (150-450) Mean Platelet Volume 7.8 FL (6.5-10.1) 6.8 FL (6.5-10.1) Neutrophils (%) (Auto) % (45.0-75.0) % (45.0-75.0) Lymphocytes (%) (Auto) % (20.0-45.0) % (20.0-45.0) Monocytes (%) (Auto) % (1.0-10.0) % (1.0-10.0) Eosinophils (%) (Auto) % (0.0-3.0) % (0.0-3.0) Basophils (%) (Auto) % (0.0-2.0) % (0.0-2.0) Differential Total Cells Counted 100 Neutrophils % (Manual) 87 % (45-75) H Pending Lymphocytes % (Manual) 7 % (20-45) L Pending Monocytes % (Manual) 5 % (1-10) Eosinophils % (Manual) 1 % (0-3) Basophils % (Manual) 0 % (0-2) Band Neutrophils 0 % (0-8) Platelet Estimate Adequate Pending Platelet Morphology Normal Pending Red Blood Cell Morphology Normal D-Dimer 0.44 mg/L FEU (0.00-0.49) Sodium Level 140 MMOL/L (136-145) Pending Potassium Level 4.3 MMOL/L (3.5-5.1) Pending Chloride Level 106 MMOL/L (98-107) Pending Carbon Dioxide Level 25 MMOL/L (21-32) Pending Anion Gap 9 mmol/L (5-15) Blood Urea Nitrogen 38 mg/dL (7-18) H Pending Creatinine 1.6 MG/DL (0.55-1.30) H Pending Estimat Glomerular Filtration Rate 41.2 mL/min (>60) Pending Glucose Level 93 MG/DL (74-106) # Pending Hemoglobin A1c 6.1 % (4.3-6.0) H Uric Acid 7.0 MG/DL (2.6-7.2) Calcium Level 9.3 MG/DL (8.5-10.1) Pending Phosphorus Level 2.8 MG/DL (2.5-4.9) Pending Magnesium Level 2.2 MG/DL (1.8-2.4) Pending Ferritin 651 NG/ML (8-388) H Total Bilirubin 0.4 MG/DL (0.2-1.0) Pending Gamma Glutamyl Transpeptidase 34 U/L (5-85) Aspartate Amino Transf (AST/SGOT) 22 U/L (15-37) Pending Alanine Aminotransferase (ALT/SGPT) 20 U/L (12-78) Pending Alkaline Phosphatase 95 U/L (46-116) Pending Lactate Dehydrogenase 267 U/L (81-234) H Troponin I 0.010 ng/mL (0.000-0.056) C-Reactive Protein, Quantitative 13.2 mg/dL (0.00-0.90) H Pending Pro-B-Type Natriuretic Peptide 900 pg/mL (0-125) H Total Protein 8.1 G/DL (6.4-8.2) Pending Albumin 3.0 G/DL (3.4-5.0) L Pending Globulin 5.1 g/dL Pending Albumin/Globulin Ratio 0.6 (1.0-2.7) L Triglycerides Level 96 MG/DL (30-150) Cholesterol Level 178 MG/DL (< 200) LDL Cholesterol 120 mg/dL (<100) H HDL Cholesterol 38 MG/DL (40-60) L Cholesterol/HDL Ratio 4.7 (3.3-4.4) H Thyroid Stimulating Hormone (TSH) 0.367 uiU/mL (0.358-3.740) POC Whole Blood Glucose 127 MG/DL (74-106) H Pending Direct Bilirubin Pending Current Medications Medications (Trade) Dose Ordered Sig/Amaya Route PRN Reason Start Time Stop Time Status Last Admin Dose Admin Acetaminophen (Tylenol) 650 mg Q4H PRN ORAL Temp >100.5 08/17/20 19:45 09/16/20 19:44 Albuterol/ Ipratropium (Combivent Respimat) 1 puff Q4H PRN INH Shortness of Breath 08/18/20 13:00 09/17/20 12:59 Apixaban (Eliquis) 5 mg BID ORAL 08/18/20 18:00 11/16/20 17:59 08/19/20 17:56 Azithromycin 250 mg/Dextrose 275 ml @ 275 mls/hr Q24HRS IV 08/19/20 10:00 08/24/20 09:59 08/19/20 09:31 Dexamethasone (Decadron) 6 mg DAILY ORAL 08/18/20 09:00 08/26/20 12:00 08/19/20 09:29 Dextrose (Dextrose 50%) 25 ml Q30M PRN IV Hypoglycemia 08/18/20 11:45 11/16/20 11:44 Dextrose (Dextrose 50%) 50 ml Q30M PRN IV Hypoglycemia 08/18/20 11:45 11/16/20 11:44 Diazepam (Valium) 5 mg HSPRN PRN ORAL For Anxiety 08/17/20 19:45 08/24/20 19:44 08/18/20 23:14 Ertapenem 1 gm/ Sodium Chloride 55 ml @ 110 mls/hr Q24H IV 08/20/20 09:00 08/25/20 08:59 Insulin Aspart (NovoLOG) BEFORE MEALS AND HS SUBQ 08/18/20 16:30 11/16/20 16:29 08/19/20 22:08 Ondansetron HCl (Zofran) 4 mg Q6H PRN IVP Nausea & Vomiting 08/17/20 19:45 09/16/20 19:44 Pantoprazole (Protonix) 40 mg DAILY ORAL 08/18/20 09:00 09/17/20 08:59 08/19/20 09:28 Polyethylene Glycol (Miralax) 17 gm DAILYPRN PRN ORAL Constipation 08/17/20 19:45 09/16/20 19:44 08/19/20 17:56 Promethazine HCl/ Codeine (Phenergan with Codeine) 5 ml Q6H PRN ORAL cough 08/17/20 19:45 09/16/20 19:44 Remdesivir 100 mg/ Sodium Chloride 250 ml @ 250 mls/hr Q24H IV 08/20/20 15:00 08/23/20 15:59 Sodium Chloride 1,000 ml @ 50 mls/hr Q20H IV 08/18/20 18:30 09/17/20 18:29 08/19/20 15:19 Tamsulosin HCl (Flomax) 0.4 mg BID ORAL 08/18/20 09:00 09/17/20 08:59 08/19/20 17:56 Aneta Nguyen M.D. Aug 20, 2020 07:22
--- NOTE | 2020-08-20 07:39 | NUR ---
NURSE HAND-OFF REPORT: Important Events on Shift:[Requesting for denture adhesive. Dentures at bedside in denture case] Patient Status: [Full code] Diet: [Cardiac diet] Pending Orders: [] Pending Results/Labs:[] Pending MD notification:[] Latest Vital Signs: Temperature 97.6 , Pulse 95 , B/P 125 /56 , Respiratory Rate 20 , O2 SAT 94 , Nasal Cannula, O2 Flow Rate 5.0 . Vital Sign Comment: [] EKG Rhythm: Sinus Rhythm w/ BBB Rhythm change?: N MD Notified?: N - MD Response: Latest Wong Fall Score: 40 Fall Risk: Medium Risk Safety Measures: Call light Within Reach, Bed Alarm Zone 1, Side Rails Side Rails x2, Bed position Low and Locked. Fall Precautions: Yellow Socks Yellow Gown Patient Fall Education Report given to [BRYAN Lopes].
[2020-08-20 08:00] VITALS: BP 145/70
[2020-08-20 08:30] LABS: ALANINE AMINOTRANSFERASE 20 U/L (12-78); ALBUMIN 2.3 G/DL (3.4-5.0); ALBUMIN/GLOBULIN RATIO 0.6 (1.0-2.7); ALKALINE PHOSPHATASE 72 U/L (46-116); ANION GAP 10 mmol/L (5-15); ASPARTATE AMINO TRANSFERASE 29 U/L (15-37); BILIRUBIN,DIRECT < 0.1 MG/DL (0.0-0.3); BILIRUBIN,TOTAL 0.4 MG/DL (0.2-1.0); BLOOD UREA NITROGEN 30 mg/dL (7-18); CALCIUM 8.5 MG/DL (8.5-10.1); CARBON DIOXIDE 21 MMOL/L (21-32); CHLORIDE 108 MMOL/L (98-107); CREATININE 1.2 MG/DL (0.55-1.30); POTASSIUM 4.9 MMOL/L (3.5-5.1); SODIUM 139 MMOL/L (136-145)
[2020-08-20 08:35] LABS: PHOSPHORUS 2.2 MG/DL (2.5-4.9)
[2020-08-20] MEDS: Tamsulosin 0.4mg cap ORAL SCH ×2 (09:12→17:54)
[2020-08-20] MEDS: Ertapenem 1 GM in NS 55 ML IV SCH (09:12)
[2020-08-20] MEDS: Eliquis 5mg tablet ORAL SCH ×2 (09:13→17:54)
[2020-08-20] MEDS: Azithromycin 250 MG in D5W 275 ML IV SCH (10:50)
[2020-08-20] MEDS ORDERED: NITRO0.4 SL (11:23)
[2020-08-20] MEDS ORDERED: MELATONIN 3 MG1 EAC1 PO (11:23)
[2020-08-20] MEDS ORDERED: ARTIFICIAL TEAR15 ML BOTH EYES (11:26)
[2020-08-20] MEDS ORDERED: CRANBERRY450 M5 PO (11:26)
[2020-08-20] MEDS ORDERED: PROSCAR5 MG ORAL (11:26)
[2020-08-20] MEDS ORDERED: CLONIDINE0.1 MG ORAL (11:26)
--- NOTE | 2020-08-20 11:28 | Pulmonology Progress Note ---
Subjective ROS Limited/Unobtainable: No Constitutional: Reports: no symptoms HEENT: Repors: no symptoms Allergies: Coded Allergies: No Known Allergies (Unverified , 01/04/19) All Systems: reviewed and negative except above Objective Last 24 Hour Vital Signs Date Time Temp Pulse Resp B/P (MAP) Pulse Ox O2 Delivery O2 Flow Rate FiO2 08/20/20 04:00 95 08/20/20 04:00 97.6 71 20 125/56 (79) 94 08/20/20 00:00 97.5 74 20 116/52 (73) 95 08/20/20 00:00 76 08/19/20 21:00 Nasal Cannula 5.0 08/19/20 20:00 81 08/19/20 20:00 97.0 79 20 114/47 (69) 94 08/19/20 16:00 87 08/19/20 16:00 96.7 84 20 115/55 (75) 95 08/19/20 12:00 82 08/19/20 12:00 97.3 84 20 114/69 (84) 95 Intake and Output 08/19/20 08/20/20 19:00 07:00 Intake Total 610 ml 120 ml Balance 610 ml 120 ml Intake Oral 610 ml 120 ml # Voids 1 1 General Appearance: WD/WN HEENT: normocephalic, atraumatic Respiratory: chest wall non-tender, lungs clear Cardiovascular: normal peripheral pulses, regular rhythm Abdomen: normal bowel sounds, soft, non tender Genitourinary: normal external genitalia Extremities: no clubbing 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 Complete 08/18/20 01:00 Nasopharynx SARS-CoV-2 RdRp Gene Assay - Final Complete 08/17/20 18:19 Urine,Clean Catch Urine Culture - Final Escherichia Coli - Esbl Complete 08/17/20 18:18 Blood Blood Culture - Preliminary NO GROWTH AFTER 48 HOURS Resulted 08/17/20 18:04 Blood Blood Culture - Preliminary NO GROWTH AFTER 48 HOURS Resulted Laboratory Tests 08/19/20 11:52: POC Whole Blood Glucose 127H 08/19/20 16:45: POC Whole Blood Glucose [Pending] 08/20/20 05:00: White Blood Count 8.0, Red Blood Count 5.27, Hemoglobin 14.2, Hematocrit 42.5, Mean Corpuscular Volume 81, Mean Corpuscular Hemoglobin 27.0, Mean Corpuscular Hemoglobin Concent 33.5, Red Cell Distribution Width 13.4, Platelet Count 163, Mean Platelet Volume 6.8, Neutrophils (%) (Auto) , Lymphocytes (%) (Auto) , Monocytes (%) (Auto) , Eosinophils (%) (Auto) , Basophils (%) (Auto) , Differential Total Cells Counted 100, Neutrophils % (Manual) 85H, Lymphocytes % (Manual) 9L, Monocytes % (Manual) 6, Eosinophils % (Manual) 0, Basophils % (Manual) 0, Band Neutrophils 0, Platelet Estimate Adequate, Platelet Morphology Normal, Red Blood Cell Morphology Normal, Sodium Level 139, Potassium Level 4.9, Chloride Level 108H, Carbon Dioxide Level 21, Anion Gap 10, Blood Urea Nitrogen 30H, Creatinine 1.2, Estimat Glomerular Filtration Rate 57.4, Glucose Level 71L , Calcium Level 8.5, Phosphorus Level 2.2L, Magnesium Level 1.9, Total Bilirubin 0.4, Direct Bilirubin < 0.1, Aspartate Amino Transf (AST/SGOT) 29, Alanine Aminotransferase (ALT/SGPT) 20, Alkaline Phosphatase 72, C-Reactive Protein, Quantitative 19.4H, Total Protein 6.4, Albumin 2.3L, Globulin 4.1, Albumin/Globulin Ratio 0.6L Current Medications Medications (Trade) Dose Ordered Sig/Amaya Route PRN Reason Start Time Stop Time Status Last Admin Dose Admin Acetaminophen (Tylenol) 650 mg Q4H PRN ORAL Temp >100.5 08/17/20 19:45 09/16/20 19:44 Albuterol/ Ipratropium (Combivent Respimat) 1 puff Q4H PRN INH Shortness of Breath 08/18/20 13:00 09/17/20 12:59 Apixaban (Eliquis) 5 mg BID ORAL 08/18/20 18:00 11/16/20 17:59 08/20/20 09:13 Azithromycin 250 mg/Dextrose 275 ml @ 275 mls/hr Q24HRS IV 08/19/20 10:00 08/24/20 09:59 08/20/20 10:50 Dexamethasone (Decadron) 6 mg DAILY ORAL 08/18/20 09:00 08/26/20 12:00 08/20/20 09:13 Dextrose (Dextrose 50%) 25 ml Q30M PRN IV Hypoglycemia 08/18/20 11:45 11/16/20 11:44 Dextrose (Dextrose 50%) 50 ml Q30M PRN IV Hypoglycemia 08/18/20 11:45 11/16/20 11:44 Diazepam (Valium) 5 mg HSPRN PRN ORAL For Anxiety 08/17/20 19:45 08/24/20 19:44 08/18/20 23:14 Ertapenem 1 gm/ Sodium Chloride 55 ml @ 110 mls/hr Q24H IV 08/20/20 09:00 08/25/20 08:59 08/20/20 09:12 Insulin Aspart (NovoLOG) BEFORE MEALS AND HS SUBQ 08/18/20 16:30 11/16/20 16:29 08/19/20 22:08 Ondansetron HCl (Zofran) 4 mg Q6H PRN IVP Nausea & Vomiting 08/17/20 19:45 09/16/20 19:44 Pantoprazole (Protonix) 40 mg DAILY ORAL 08/18/20 09:00 09/17/20 08:59 08/20/20 09:12 Polyethylene Glycol (Miralax) 17 gm DAILYPRN PRN ORAL Constipation 08/17/20 19:45 09/16/20 19:44 08/19/20 17:56 Promethazine HCl/ Codeine (Phenergan with Codeine) 5 ml Q6H PRN ORAL cough 08/17/20 19:45 09/16/20 19:44 Remdesivir 100 mg/ Sodium Chloride 250 ml @ 250 mls/hr Q24H IV 08/20/20 15:00 08/23/20 15:59 Sodium Chloride 1,000 ml @ 50 mls/hr Q20H IV 08/18/20 18:30 09/17/20 18:29 08/20/20 10:50 Tamsulosin HCl (Flomax) 0.4 mg BID ORAL 08/18/20 09:00 09/17/20 08:59 08/20/20 09:12 Assessment/Plan Problems: (1) Hypoxia (2) 2019 novel coronavirus detected (3) CVA, old, hemiparesis (4) Hypertension (5) Diabetes mellitus (6) BPH (benign prostatic hyperplasia) Assessment/Plan crp rising no fever all reviewed doing better respiratory isolation steroids and Remdesevir titrate fio2 to sat of 92% iv abx check inflammatory markers sliding scale diabetic diet Angelita Alarcon MD Aug 20, 2020 11:28
[2020-08-20 12:00] VITALS: BP 126/68
--- NOTE | 2020-08-20 13:03 | Nephrology Progress Note ---
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 Hypertension Diabetes, hypoalbuminemia BPH Plan August 20: Labs reviewed. Creatinine now normalized. Electrolytes within normal limit. Continue per consultants. Antibiotics Slow hydrate with normal saline Monitor renal parameters Keep the blood pressure blood sugar in check Per orders Subjective ROS Limited/Unobtainable: No Constitutional: Reports: malaise, weakness Objective Objective Last 24 Hour Vital Signs Date Time Temp Pulse Resp B/P (MAP) Pulse Ox O2 Delivery O2 Flow Rate FiO2 08/20/20 08:00 98.1 80 18 145/70 (95) 97 08/20/20 04:00 95 08/20/20 04:00 97.6 71 20 125/56 (79) 94 08/20/20 00:00 97.5 74 20 116/52 (73) 95 08/20/20 00:00 76 08/19/20 21:00 Nasal Cannula 5.0 08/19/20 20:00 81 08/19/20 20:00 97.0 79 20 114/47 (69) 94 08/19/20 16:00 87 08/19/20 16:00 96.7 84 20 115/55 (75) 95 Intake and Output 08/19/20 08/20/20 19:00 07:00 Intake Total 610 ml 120 ml Balance 610 ml 120 ml Intake Oral 610 ml 120 ml # Voids 1 1 Current Medications Medications (Trade) Dose Ordered Sig/Amaya Route PRN Reason Start Time Stop Time Status Last Admin Dose Admin Acetaminophen (Tylenol) 650 mg Q4H PRN ORAL Temp >100.5 08/17/20 19:45 09/16/20 19:44 Albuterol/ Ipratropium (Combivent Respimat) 1 puff Q4H PRN INH Shortness of Breath 08/18/20 13:00 09/17/20 12:59 Apixaban (Eliquis) 5 mg BID ORAL 08/18/20 18:00 11/16/20 17:59 08/20/20 09:13 Azithromycin 250 mg/Dextrose 275 ml @ 275 mls/hr Q24HRS IV 08/19/20 10:00 08/24/20 09:59 08/20/20 10:50 Dexamethasone (Decadron) 6 mg DAILY ORAL 08/18/20 09:00 08/26/20 12:00 08/20/20 09:13 Dextrose (Dextrose 50%) 25 ml Q30M PRN IV Hypoglycemia 08/18/20 11:45 11/16/20 11:44 Dextrose (Dextrose 50%) 50 ml Q30M PRN IV Hypoglycemia 08/18/20 11:45 11/16/20 11:44 Diazepam (Valium) 5 mg HSPRN PRN ORAL For Anxiety 08/17/20 19:45 08/24/20 19:44 08/18/20 23:14 Ertapenem 1 gm/ Sodium Chloride 55 ml @ 110 mls/hr Q24H IV 08/20/20 09:00 08/25/20 08:59 08/20/20 09:12 Insulin Aspart (NovoLOG) BEFORE MEALS AND HS SUBQ 08/18/20 16:30 11/16/20 16:29 08/19/20 22:08 Ondansetron HCl (Zofran) 4 mg Q6H PRN IVP Nausea & Vomiting 08/17/20 19:45 09/16/20 19:44 Pantoprazole (Protonix) 40 mg DAILY ORAL 08/18/20 09:00 09/17/20 08:59 08/20/20 09:12 Polyethylene Glycol (Miralax) 17 gm DAILYPRN PRN ORAL Constipation 08/17/20 19:45 09/16/20 19:44 08/19/20 17:56 Promethazine HCl/ Codeine (Phenergan with Codeine) 5 ml Q6H PRN ORAL cough 08/17/20 19:45 09/16/20 19:44 Remdesivir 100 mg/ Sodium Chloride 250 ml @ 250 mls/hr Q24H IV 08/20/20 15:00 08/23/20 15:59 Sodium Chloride 1,000 ml @ 50 mls/hr Q20H IV 08/18/20 18:30 09/17/20 18:29 08/20/20 10:50 Tamsulosin HCl (Flomax) 0.4 mg BID ORAL 08/18/20 09:00 09/17/20 08:59 08/20/20 09:12 Laboratory Tests 08/19/20 16:45: POC Whole Blood Glucose [Pending] 08/20/20 05:00: White Blood Count 8.0, Red Blood Count 5.27, Hemoglobin 14.2, Hematocrit 42.5, Mean Corpuscular Volume 81, Mean Corpuscular Hemoglobin 27.0, Mean Corpuscular Hemoglobin Concent 33.5, Red Cell Distribution Width 13.4, Platelet Count 163, Mean Platelet Volume 6.8, Neutrophils (%) (Auto) , Lymphocytes (%) (Auto) , Monocytes (%) (Auto) , Eosinophils (%) (Auto) , Basophils (%) (Auto) , Differential Total Cells Counted 100, Neutrophils % (Manual) 85H, Lymphocytes % (Manual) 9L, Monocytes % (Manual) 6, Eosinophils % (Manual) 0, Basophils % (Manual) 0, Band Neutrophils 0, Platelet Estimate Adequate, Platelet Morphology Normal, Red Blood Cell Morphology Normal, Sodium Level 139, Potassium Level 4.9, Chloride Level 108H, Carbon Dioxide Level 21, Anion Gap 10, Blood Urea Nitrogen 30H, Creatinine 1.2, Estimat Glomerular Filtration Rate 57.4, Glucose Level 71L , Calcium Level 8.5, Phosphorus Level 2.2L, Magnesium Level 1.9, Total Bilirubin 0.4, Direct Bilirubin < 0.1, Aspartate Amino Transf (AST/SGOT) 29, Alanine Aminotransferase (ALT/SGPT) 20, Alkaline Phosphatase 72, C-Reactive Protein, Qu antitative 19.4H, Total Protein 6.4, Albumin 2.3L, Globulin 4.1, Albumin/Globulin Ratio 0.6L Height (Feet): 5 Height (Inches): 8.00 Weight (Pounds): 163 General Appearance: no apparent distress Respiratory/Chest: decreased breath sounds Abdomen: soft, distended Devonte Zuniga MD Aug 20, 2020 13:03
[2020-08-20] MEDS: Maintenance Dose:Remdesivir 100mg/NS 230ml x 4 Doses IV SCH ×2 (15:20)
[2020-08-20 16:00] VITALS: BP 130/80
--- NOTE | 2020-08-20 19:05 | NUR ---
NURSE HAND-OFF REPORT: Important Events on Shift:na Patient Status: Stable Diet: Cardiac Pending Orders: na Pending Results/Labs:na Pending MD notification:na Latest Vital Signs: Temperature 98.0 , Pulse 70 , B/P 130 /80 , Respiratory Rate 18 , O2 SAT 95 , Nasal Cannula, O2 Flow Rate 5.0 . Vital Sign Comment: Stable EKG Rhythm: Sinus Rhythm w/ BBB Rhythm change?: N MD Notified?: N - MD Response: Latest Wong Fall Score: 40 Fall Risk: Medium Risk Safety Measures: Call light Within Reach, Bed Alarm Zone 1, Side Rails Side Rails x2, Bed position Low and Locked. Fall Precautions: Yellow Socks Yellow Gown Patient Fall Education Report given to BRYAN [place]in.
--- NOTE | 2020-08-20 19:06 | NUR ---
NURSE NOTES: Received report from BRYAN Lopes; AOX 4, On O2 therapy 5L/min via NC; in no acute distress; with R sided weakness; assisted pt with needs; with IV site on R AC infusing IV NS @ 20 ml/hr infusing; with accucheck ACHS; call light within reach; side rails x 3; bed locked and in low position; will continue to monitor.
--- NOTE | 2020-08-20 19:16 | Cardiac Electrophysiology PN ---
Assessment/Plan Assessment/Plan 1. COVID-19 pneumonia. On Remdesevir, ceftriaxone, albuterol, dexamethasone and 5 liter NC. The patient is also on apixaban. 2. Hypertension. Blood pressure currently is stable, off antihypertensive agents. 3. Diabetes. 4. History of CVA with hemiparesis. 5. Benign prostatic hypertrophy. 6. Sinus tach due to Covid Subjective Subjective Alert in NAD on 5 liter Nasal Cannula. In SR with PACs. In Covid isolation on 2 iv Abx Objective Last 24 Hour Vital Signs Date Time Temp Pulse Resp B/P (MAP) Pulse Ox O2 Delivery O2 Flow Rate FiO2 08/20/20 16:00 70 08/20/20 16:00 98.0 79 18 130/80 (97) 95 08/20/20 12:00 81 08/20/20 12:00 97.6 87 20 126/68 (87) 96 08/20/20 09:00 Nasal Cannula 5.0 08/20/20 08:00 98.1 80 18 145/70 (95) 97 08/20/20 08:00 91 08/20/20 04:00 95 08/20/20 04:00 97.6 71 20 125/56 (79) 94 08/20/20 00:00 97.5 74 20 116/52 (73) 95 08/20/20 00:00 76 08/19/20 21:00 Nasal Cannula 5.0 08/19/20 20:00 81 08/19/20 20:00 97.0 79 20 114/47 (69) 94 Intake and Output 08/19/20 08/20/20 19:00 07:00 Intake Total 610 ml 120 ml Balance 610 ml 120 ml Intake Oral 610 ml 120 ml # Voids 1 1 Laboratory Tests Test 08/20/20 05:00 White Blood Count 8.0 K/UL (4.8-10.8) Red Blood Count 5.27 M/UL (4.70-6.10) Hemoglobin 14.2 G/DL (14.2-18.0) Hematocrit 42.5 % (42.0-52.0) Mean Corpuscular Volume 81 FL (80-99) Mean Corpuscular Hemoglobin 27.0 PG (27.0-31.0) Mean Corpuscular Hemoglobin Concent 33.5 G/DL (32.0-36.0) Red Cell Distribution Width 13.4 % (11.6-14.8) Platelet Count 163 K/UL (150-450) Mean Platelet Volume 6.8 FL (6.5-10.1) Neutrophils (%) (Auto) % (45.0-75.0) Lymphocytes (%) (Auto) % (20.0-45.0) Monocytes (%) (Auto) % (1.0-10.0) Eosinophils (%) (Auto) % (0.0-3.0) Basophils (%) (Auto) % (0.0-2.0) Differential Total Cells Counted 100 Neutrophils % (Manual) 85 % (45-75) H Lymphocytes % (Manual) 9 % (20-45) L Monocytes % (Manual) 6 % (1-10) Eosinophils % (Manual) 0 % (0-3) Basophils % (Manual) 0 % (0-2) Band Neutrophils 0 % (0-8) Platelet Estimate Adequate Platelet Morphology Normal Red Blood Cell Morphology Normal Sodium Level 139 MMOL/L (136-145) Potassium Level 4.9 MMOL/L (3.5-5.1) Chloride Level 108 MMOL/L (98-107) H Carbon Dioxide Level 21 MMOL/L (21-32) Anion Gap 10 mmol/L (5-15) Blood Urea Nitrogen 30 mg/dL (7-18) H Creatinine 1.2 MG/DL (0.55-1.30) Estimat Glomerular Filtration Rate 57.4 mL/min (>60) Glucose Level 71 MG/DL (74-106) L Calcium Level 8.5 MG/DL (8.5-10.1) Phosphorus Level 2.2 MG/DL (2.5-4.9) L Magnesium Level 1.9 MG/DL (1.8-2.4) Total Bilirubin 0.4 MG/DL (0.2-1.0) Direct Bilirubin < 0.1 MG/DL (0.0-0.3) Aspartate Amino Transf (AST/SGOT) 29 U/L (15-37) Alanine Aminotransferase (ALT/SGPT) 20 U/L (12-78) Alkaline Phosphatase 72 U/L (46-116) C-Reactive Protein, Quantitative 19.4 mg/dL (0.00-0.90) H Total Protein 6.4 G/DL (6.4-8.2) Albumin 2.3 G/DL (3.4-5.0) L Globulin 4.1 g/dL Albumin/Globulin Ratio 0.6 (1.0-2.7) L Microbiology Date/Time Source Procedure Growth Status 08/18/20 10:05 Rectum Received 08/18/20 10:05 Nasal Nares MRSA Culture - Final NO METHICILLIN RESISTANT STAPH AUREUS... Complete 08/18/20 01:00 Nasopharynx SARS-CoV-2 RdRp Gene Assay - Final Complete Objective HEAD AND NECK: no JVD. LUNGS: Coarse rhonchi. CARDIOVASCULAR: Regular S1 and S2 with no gallop or murmur. ABDOMEN: Soft. EXTREMITIES: No pitting edema. Sabino Goncalves MD Aug 20, 2020 19:16
[2020-08-20 20:00] VITALS: BP 135/62
--- NOTE | 2020-08-20 21:00 | General Progress Note ---
Subjective ROS Limited/Unobtainable: Yes Allergies: Coded Allergies: No Known Allergies (Unverified , 01/04/19) Objective Last 24 Hour Vital Signs Date Time Temp Pulse Resp B/P (MAP) Pulse Ox O2 Delivery O2 Flow Rate FiO2 08/20/20 16:00 70 08/20/20 16:00 98.0 79 18 130/80 (97) 95 08/20/20 12:00 81 08/20/20 12:00 97.6 87 20 126/68 (87) 96 08/20/20 09:00 Nasal Cannula 5.0 08/20/20 08:00 98.1 80 18 145/70 (95) 97 08/20/20 08:00 91 08/20/20 04:00 95 08/20/20 04:00 97.6 71 20 125/56 (79) 94 08/20/20 00:00 97.5 74 20 116/52 (73) 95 08/20/20 00:00 76 08/19/20 21:00 Nasal Cannula 5.0 Intake and Output 08/19/20 08/20/20 19:00 07:00 Intake Total 610 ml 120 ml Balance 610 ml 120 ml Intake Oral 610 ml 120 ml # Voids 1 1 Laboratory Tests 08/20/20 05:00: White Blood Count 8.0, Red Blood Count 5.27, Hemoglobin 14.2, Hematocrit 42.5, Mean Corpuscular Volume 81, Mean Corpuscular Hemoglobin 27.0, Mean Corpuscular Hemoglobin Concent 33.5, Red Cell Distribution Width 13.4, Platelet Count 163, Mean Platelet Volume 6.8, Neutrophils (%) (Auto) , Lymphocytes (%) (Auto) , Monocytes (%) (Auto) , Eosinophils (%) (Auto) , Basophils (%) (Auto) , Differential Total Cells Counted 100, Neutrophils % (Manual) 85H, Lymphocytes % (Manual) 9L, Monocytes % (Manual) 6, Eosinophils % (Manual) 0, Basophils % (Manual) 0, Band Neutrophils 0, Platelet Estimate Adequate, Platelet Morphology Normal, Red Blood Cell Morphology Normal, Sodium Level 139, Potassium Level 4.9, Chloride Level 108H, Carbon Dioxide Level 21, Anion Gap 10, Blood Urea Nitrogen 30H, Creatinine 1.2, Estimat Glomerular Filtration Rate 57.4, Glucose Level 71L, Calcium Level 8.5, Phosphorus Level 2.2L, Magnesium Level 1.9, Total Bilirubin 0.4, Direct Bilirubin < 0.1, Aspartate Amino Transf (AST/SGOT) 29, Alanine Aminotransferase (ALT/SGPT) 20, Alkaline Phosphatase 72, C-Reactive Protein, Quantitative 19.4H, Total Protein 6.4, Albumin 2.3L, Globulin 4.1, Albumin/Globulin Ratio 0.6L 08/20/20 20:54: POC Whole Blood Glucose 97 Height (Feet): 5 Height (Inches): 8.00 Weight (Pounds): 163 Assessment/Plan Problem List: (1) Renal failure (ARF), acute on chronic ICD Codes: N17.9 - Acute kidney failure, unspecified; N18.9 - Chronic kidney disease, unspecified SNOMED: 219777066 (2) Diabetes mellitus ICD Codes: E11.9 - Type 2 diabetes mellitus without complications SNOMED: 79101898 (3) Sepsis due to urinary tract infection ICD Codes: A41.9 - Sepsis, unspecified organism; N39.0 - Urinary tract infection, site not specified SNOMED: 744368091 (4) Episode of generalized weakness ICD Codes: R53.1 - Weakness SNOMED: 64124718 (5) Renal failure (ARF), acute on chronic ICD Codes: N17.9 - Acute kidney failure, unspecified; N18.9 - Chronic kidney disease, unspecified SNOMED: 279966426 (6) CVA, old, hemiparesis ICD Codes: I69.359 - Hemiplegia and hemiparesis following cerebral infarction affecting unspecified side SNOMED: 769202021 (7) Hypoxia ICD Codes: R09.02 - Hypoxemia SNOMED: 389932472 (8) 2019 novel coronavirus detected ICD Codes: U07.1 - COVID-19 SNOMED: 8290152537711390 (9) BPH (benign prostatic hyperplasia) ICD Codes: N40.0 - Benign prostatic hyperplasia without lower urinary tract symptoms SNOMED: 366107109 Status: progressing, unchanged Assessment/Plan: covid + hypoxia arf dm sepsis bph afebrile Jose David Headley MD Aug 20, 2020 21:00
[2020-08-21] VITALS (7 sets, daily range): BP systolic 115–131; BP diastolic 49–84
--- NOTE | 2020-08-21 01:26 | NUR ---
NURSE NOTES: Contacted Dr. Goncalves d/t pt noted with episode of Ist degree AV block; remains with sinus rhythm; asymptomatic; noted asleep in bed; HR=63; WP=151/84; awaiting MD response. Will continue to monitor.
[2020-08-21 05:58] LABS: BASOPHILS % (AUTO) 0.3 % (0.0-2.0); EOSINOPHILS % (AUTO) 0.3 % (0.0-3.0); HEMATOCRIT 44.3 % (42.0-52.0); HEMOGLOBIN 14.5 G/DL (14.2-18.0); LYMPHOCYTES % (AUTO) 10.9 % (20.0-45.0); MEAN CORPUSCULAR VOLUME 82 FL (80-99); MONOCYTES % (AUTO) 9.6 % (1.0-10.0); PLATELET COUNT 169 K/UL (150-450); RED CELL DISTRIBUTION WIDTH 13.6 % (11.6-14.8); WHITE BLOOD COUNT 7.2 K/UL (4.8-10.8)
[2020-08-21] MEDS: NovoLOG Insulin Flexpen SUBQ SCH ×4 (06:03→21:52)
[2020-08-21 06:12] LABS: ALBUMIN 2.1 G/DL (3.4-5.0); ALBUMIN/GLOBULIN RATIO 0.5 (1.0-2.7); BILIRUBIN,DIRECT 0.1 MG/DL (0.0-0.3); BILIRUBIN,TOTAL 0.4 MG/DL (0.2-1.0); CALCIUM 8.4 MG/DL (8.5-10.1); CREATININE 1.2 MG/DL (0.55-1.30)
--- NOTE | 2020-08-21 07:15 | NUR ---
NURSE HAND-OFF REPORT: Important Events on Shift: Episodes of SR with 1AVB; Sacha made aware; awaiting response Patient Status: AOX4; asleep most of the night; R sided weakness Diet: cardiac, thin liquids Pending Orders: none Pending Results/Labs: morning labs Pending MD notification: none Latest Vital Signs: Temperature 97.0 , Pulse 64 , B/P 115 /50 , Respiratory Rate 20 , O2 SAT 93 , Nasal Cannula, O2 Flow Rate 5.0 . Vital Sign Comment: stable EKG Rhythm: SR W/ 1AVB Rhythm change?: N MD Notified?: Y -Dr. Sacha GLASS Response: Message left await call Latest Wong Fall Score: 40 Fall Risk: Medium Risk Safety Measures: Call light Within Reach, Bed Alarm Zone 1, Side Rails Side Rails x2, Bed position Low and Locked. Fall Precautions: Yellow Socks Yellow Gown Patient Fall Education Report given to BRYAN Mckeon.
--- NOTE | 2020-08-21 07:50 | NUR ---
NURSE NOTES: pt in bed sleeping, food is at bedside. pt on radiographer cardiac catheterization no signs of cardiac or respiratory distress. Bed in lowest position and locked. Call light within reach. Will continue to monitor pt. spoke to engineering they will fix light today, pt has been complaining. will continue to monitor pt.
--- NOTE | 2020-08-21 08:02 | NUR ---
CASE MANAGEMENT:REVIEW 08/21/20 SI: COVID INFECTION. HYPOXIA 97.0 64 20 115/50 93% ON 5L/NC IS: IV REMDESIVIR Q24 IV ERTAPENEM Q24 IV AZITHROMYCIN Q24 IVF@50/HR DECADRON PO QD ELIQUIS PO BID : TELEMETRY STATUS DCP: FROM [facility] PLAN: TITRATE OXYGEN SAT 92%
--- NOTE | 2020-08-21 08:04 | Infectious Diseases Prog Note ---
Assessment/Plan 84yo M with: Afebrile Normal WBC Lymphopenia COVID pneumonia, severe Acute hypoxic resp failure 2/2 COVID pna UTI/cystitis 08/17 BCx NTD UCx +ESBL E.coli CXR: No significant change in tortuosity/ectasia of the thoracic aorta. Negative for cardiac enlargement. Negative for focal consolidation, pneumothorax or pleural fluid collections. COVID rapid test positive, PCR positive Cr 1.8, improving 08/19 Renal US: Negative for hydronephrosis. 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 Bilateral renal cysts, large on the right. Plan: Cont RDV #3/5 given improved CATHERINE Cont dexamethasone 6mg daily #4/10 Cont ertapenem #3/5 for UTI Cont azithro #4/5 given COVID pna, empiric in case of superinfection Convalescent plasma unfortunately not available at this institution so unable to give, additionally unclear if it improves mortality/outcomes or not Monitor CBC/CMP Monitor temp curve, hemodynamics Monitor resp status D/w RN Thank you for this consult. [facility] will continue to follow. Subjective Allergies: Coded Allergies: No Known Allergies (Unverified , 01/04/19) AF NAD on 5L NC WBC 7.2 feels breathing is stable multiple complaints about food, difficulty in finding in nurse call button - but [facility] feeling about the same Asking when he can get the vaccine for COVID Objective Last 24 Hour Vital Signs Date Time Temp Pulse Resp B/P (MAP) Pulse Ox O2 Delivery O2 Flow Rate FiO2 08/21/20 06:00 97.0 64 20 115/50 (71) 93 08/21/20 04:00 96.8 65 20 115/50 (71) 92 08/21/20 04:00 62 08/21/20 00:00 63 08/21/20 00:00 96.8 65 20 119/84 (96) 92 08/20/20 21:00 Nasal Cannula 5.0 08/20/20 20:00 98.6 74 20 135/62 (86) 92 08/20/20 20:00 70 08/20/20 16:00 70 08/20/20 16:00 98.0 79 18 130/80 (97) 95 08/20/20 12:00 81 08/20/20 12:00 97.6 87 20 126/68 (87) 96 08/20/20 09:00 Nasal Cannula 5.0 Height (Feet): 5 Height (Inches): 8.00 Weight (Pounds): 163 Gen: NAD HEENT: NCAT Pulm: BL chest rise Abd: Non-distended Ext: No c/c/e Skin: No visible rashes Neuro: Awake, interactive Microbiology Date/Time Source Procedure Growth Status 08/18/20 10:05 Rectum Received 08/18/20 10:05 Nasal Nares MRSA Culture - Final NO METHICILLIN RESISTANT STAPH AUREUS... Complete Laboratory Tests Test 08/20/20 20:54 08/21/20 05:25 08/21/20 05:59 POC Whole Blood Glucose 97 MG/DL (74-106) 87 MG/DL (74-106) White Blood Count 7.2 K/UL (4.8-10.8) Red Blood Count 5.40 M/UL (4.70-6.10) Hemoglobin 14.5 G/DL (14.2-18.0) Hematocrit 44.3 % (42.0-52.0) Mean Corpuscular Volume 82 FL (80-99) Mean Corpuscular Hemoglobin 26.9 PG (27.0-31.0) L Mean Corpuscular Hemoglobin Concent 32.8 G/DL (32.0-36.0) Red Cell Distribution Width 13.6 % (11.6-14.8) Platelet Count 169 K/UL (150-450) Mean Platelet Volume 7.2 FL (6.5-10.1) Neutrophils (%) (Auto) 79.0 % (45.0-75.0) H Lymphocytes (%) (Auto) 10.9 % (20.0-45.0) L Monocytes (%) (Auto) 9.6 % (1.0-10.0) Eosinophils (%) (Auto) 0.3 % (0.0-3.0) Basophils (%) (Auto) 0.3 % (0.0-2.0) Sodium Level 141 MMOL/L (136-145) Potassium Level 4.0 MMOL/L (3.5-5.1) Chloride Level 109 MMOL/L (98-107) H Carbon Dioxide Level 24 MMOL/L (21-32) Anion Gap 8 mmol/L (5-15) Blood Urea Nitrogen 28 mg/dL (7-18) H Creatinine 1.2 MG/DL (0.55-1.30) Estimat Glomerular Filtration Rate 57.4 mL/min (>60) Glucose Level 93 MG/DL (74-106) Calcium Level 8.4 MG/DL (8.5-10.1) L Total Bilirubin 0.4 MG/DL (0.2-1.0) Direct Bilirubin 0.1 MG/DL (0.0-0.3) Aspartate Amino Transf (AST/SGOT) 20 U/L (15-37) Alanine Aminotransferase (ALT/SGPT) 18 U/L (12-78) Alkaline Phosphatase 72 U/L (46-116) Total Protein 6.0 G/DL (6.4-8.2) L Albumin 2.1 G/DL (3.4-5.0) L Globulin 3.9 g/dL Albumin/Globulin Ratio 0.5 (1.0-2.7) L Current Medications Medications (Trade) Dose Ordered Sig/Amaya Route PRN Reason Start Time Stop Time Status Last Admin Dose Admin Acetaminophen (Tylenol) 650 mg Q4H PRN ORAL Temp >100.5 08/17/20 19:45 09/16/20 19:44 Albuterol/ Ipratropium (Combivent Respimat) 1 puff Q4H PRN INH Shortness of Breath 08/18/20 13:00 09/17/20 12:59 Apixaban (Eliquis) 5 mg BID ORAL 08/18/20 18:00 11/16/20 17:59 08/20/20 17:54 Azithromycin 250 mg/Dextrose 275 ml @ 275 mls/hr Q24HRS IV 08/19/20 10:00 08/24/20 09:59 08/20/20 10:50 Dexamethasone (Decadron) 6 mg DAILY ORAL 08/18/20 09:00 08/26/20 12:00 08/20/20 09:13 Dextrose (Dextrose 50%) 25 ml Q30M PRN IV Hypoglycemia 08/18/20 11:45 11/16/20 11:44 Dextrose (Dextrose 50%) 50 ml Q30M PRN IV Hypoglycemia 08/18/20 11:45 11/16/20 11:44 Diazepam (Valium) 5 mg HSPRN PRN ORAL For Anxiety 08/17/20 19:45 08/24/20 19:44 08/18/20 23:14 Ertapenem 1 gm/ Sodium Chloride 55 ml @ 110 mls/hr Q24H IV 08/20/20 09:00 08/25/20 08:59 08/20/20 09:12 Insulin Aspart (NovoLOG) BEFORE MEALS AND HS SUBQ 08/18/20 16:30 11/16/20 16:29 08/19/20 22:08 Ondansetron HCl (Zofran) 4 mg Q6H PRN IVP Nausea & Vomiting 08/17/20 19:45 09/16/20 19:44 Pantoprazole (Protonix) 40 mg DAILY ORAL 08/18/20 09:00 09/17/20 08:59 08/20/20 09:12 Polyethylene Glycol (Miralax) 17 gm DAILYPRN PRN ORAL Constipation 08/17/20 19:45 09/16/20 19:44 08/19/20 17:56 Promethazine HCl/ Codeine (Phenergan with Codeine) 5 ml Q6H PRN ORAL cough 08/17/20 19:45 09/16/20 19:44 Remdesivir 100 mg/ Sodium Chloride 250 ml @ 250 mls/hr Q24H IV 08/20/20 15:00 08/23/20 15:59 08/20/20 15:20 Sodium Chloride 1,000 ml @ 50 mls/hr Q20H IV 08/18/20 18:30 09/17/20 18:29 08/21/20 06:01 Tamsulosin HCl (Flomax) 0.4 mg BID ORAL 08/18/20 09:00 09/17/20 08:59 08/20/20 17:54 Aneta Nguyen M.D. Aug 21, 2020 08:04
[2020-08-21] MEDS: Ertapenem 1 GM in NS 55 ML IV SCH (10:00)
[2020-08-21] MEDS: Tamsulosin 0.4mg cap ORAL SCH ×2 (10:01→17:36)
[2020-08-21] MEDS: Eliquis 5mg tablet ORAL SCH ×2 (10:01→17:36)
[2020-08-21] MEDS: Azithromycin 250 MG in D5W 275 ML IV SCH (10:30)
--- NOTE | 2020-08-21 11:46 | Pulmonology Progress Note ---
Subjective ROS Limited/Unobtainable: Yes Constitutional: Reports: no symptoms HEENT: Repors: no symptoms Allergies: Coded Allergies: No Known Allergies (Unverified , 01/04/19) All Systems: reviewed and negative except above Objective Last 24 Hour Vital Signs Date Time Temp Pulse Resp B/P (MAP) Pulse Ox O2 Delivery O2 Flow Rate FiO2 08/21/20 06:00 97.0 64 20 115/50 (71) 93 08/21/20 04:00 96.8 65 20 115/50 (71) 92 08/21/20 04:00 62 08/21/20 00:00 63 08/21/20 00:00 96.8 65 20 119/84 (96) 92 08/20/20 21:00 Nasal Cannula 5.0 08/20/20 20:00 98.6 74 20 135/62 (86) 92 08/20/20 20:00 70 08/20/20 16:00 70 08/20/20 16:00 98.0 79 18 130/80 (97) 95 08/20/20 12:00 81 08/20/20 12:00 97.6 87 20 126/68 (87) 96 Intake and Output 08/20/20 08/21/20 19:00 07:00 Intake Total 1330 ml 200 ml Balance 1330 ml 200 ml Intake Oral 400 ml 200 ml IV Total 930 ml # Voids 1 2 General Appearance: WD/WN HEENT: normocephalic, atraumatic Respiratory: chest wall non-tender, lungs clear Cardiovascular: normal peripheral pulses, regular rhythm Abdomen: normal bowel sounds, soft, non tender Genitourinary: normal external genitalia Extremities: no clubbing 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 Lymphatic: no neck adenopathy Laboratory Tests 08/20/20 20:54: POC Whole Blood Glucose 97 08/21/20 05:25: White Blood Count 7.2, Red Blood Count 5.40, Hemoglobin 14.5, Hematocrit 44.3, Mean Corpuscular Volume 82, Mean Corpuscular Hemoglobin 26.9L, Mean Corpuscular Hemoglobin Concent 32.8, Red Cell Distribution Width 13.6, Platelet Count 169, Mean Platelet Volume 7.2, Neutrophils (%) (Auto) 79.0H, Lymphocytes (%) (Auto) 10.9L, Monocytes (%) (Auto) 9.6, Eosinophils (%) (Auto) 0.3, Basophils (%) (Auto) 0.3, Sodium Level 141, Potassium Level 4.0, Chloride Level 109H, Carbon Dioxide Level 24, Anion Gap 8, Blood Urea Nitrogen 28H, Creatinine 1.2, Estimat Glomerular Filtration Rate 57.4, Glucose Level 93, Calcium Level 8.4L, Total Bilirubin 0.4, Direct Bilirubin 0.1, Aspartate Amino Transf (AST/SGOT) 20, Alanine Aminotransferase (ALT/SGPT) 18, Alkaline Phosphatase 72, Total Protein 6.0L, Albumin 2.1L, Globulin 3.9, Albumin/Globulin Ratio 0.5L 08/21/20 05:59: POC Whole Blood Glucose 87 Current Medications Medications (Trade) Dose Ordered Sig/Amaya Route PRN Reason Start Time Stop Time Status Last Admin Dose Admin Acetaminophen (Tylenol) 650 mg Q4H PRN ORAL Temp >100.5 08/17/20 19:45 09/16/20 19:44 Albuterol/ Ipratropium (Combivent Respimat) 1 puff Q4H PRN INH Shortness of Breath 08/18/20 13:00 09/17/20 12:59 Apixaban (Eliquis) 5 mg BID ORAL 08/18/20 18:00 11/16/20 17:59 08/21/20 10:01 Azithromycin 250 mg/Dextrose 275 ml @ 275 mls/hr Q24HRS IV 08/19/20 10:00 08/24/20 09:59 08/20/20 10:50 Dexamethasone (Decadron) 6 mg DAILY ORAL 08/18/20 09:00 08/26/20 12:00 08/21/20 10:00 Dextrose (Dextrose 50%) 25 ml Q30M PRN IV Hypoglycemia 08/18/20 11:45 11/16/20 11:44 Dextrose (Dextrose 50%) 50 ml Q30M PRN IV Hypoglycemia 08/18/20 11:45 11/16/20 11:44 Diazepam (Valium) 5 mg HSPRN PRN ORAL For Anxiety 08/17/20 19:45 08/24/20 19:44 08/18/20 23:14 Ertapenem 1 gm/ Sodium Chloride 55 ml @ 110 mls/hr Q24H IV 08/20/20 09:00 08/25/20 08:59 08/21/20 10:00 Insulin Aspart (NovoLOG) BEFORE MEALS AND HS SUBQ 08/18/20 16:30 11/16/20 16:29 08/19/20 22:08 Ondansetron HCl (Zofran) 4 mg Q6H PRN IVP Nausea & Vomiting 08/17/20 19:45 09/16/20 19:44 Pantoprazole (Protonix) 40 mg DAILY ORAL 08/18/20 09:00 09/17/20 08:59 08/21/20 10:01 Polyethylene Glycol (Miralax) 17 gm DAILYPRN PRN ORAL Constipation 08/17/20 19:45 09/16/20 19:44 08/19/20 17:56 Promethazine HCl/ Codeine (Phenergan with Codeine) 5 ml Q6H PRN ORAL cough 08/17/20 19:45 09/16/20 19:44 Remdesivir 100 mg/ Sodium Chloride 250 ml @ 250 mls/hr Q24H IV 08/20/20 15:00 08/23/20 15:59 08/20/20 15:20 Sodium Chloride 1,000 ml @ 50 mls/hr Q20H IV 08/18/20 18:30 09/17/20 18:29 08/21/20 06:01 Tamsulosin HCl (Flomax) 0.4 mg BID ORAL 08/18/20 09:00 09/17/20 08:59 08/21/20 10:01 Assessment/Plan Problems: (1) Hypoxia (2) 2019 novel coronavirus detected (3) CVA, old, hemiparesis (4) Hypertension (5) Diabetes mellitus (6) BPH (benign prostatic hyperplasia) Assessment/Plan no new complains no fever all reviewed doing better respiratory isolation steroids and Remdesevir titrate fio2 to sat of 92% iv abx check inflammatory markers sliding scale diabetic diet repeat CXR and CRP in Angelita Lazcano MD Aug 21, 2020 11:46
--- NOTE | 2020-08-21 12:12 | Cardiac Electrophysiology PN ---
Assessment/Plan Assessment/Plan 1. COVID-19 pneumonia. On Remdesevir, ceftriaxone, albuterol, dexamethasone and 5 liter NC. The patient is also on apixaban. 2. Hypertension. Stable off antihypertensive agents. 3. Diabetes. 4. History of CVA with hemiparesis. 5. Benign prostatic hypertrophy. 6. Sinus tach due to Covid Subjective Subjective Alert in NAD on 5 liter Nasal Cannula. In SR with PACs. In Covid isolation with no The time of the dictation or core sticker may not correspond to the time that the patient was actually seen or examined.change Objective Last 24 Hour Vital Signs Date Time Temp Pulse Resp B/P (MAP) Pulse Ox O2 Delivery O2 Flow Rate FiO2 08/21/20 06:00 97.0 64 20 115/50 (71) 93 08/21/20 04:00 96.8 65 20 115/50 (71) 92 08/21/20 04:00 62 08/21/20 00:00 63 08/21/20 00:00 96.8 65 20 119/84 (96) 92 08/20/20 21:00 Nasal Cannula 5.0 08/20/20 20:00 98.6 74 20 135/62 (86) 92 08/20/20 20:00 70 08/20/20 16:00 70 08/20/20 16:00 98.0 79 18 130/80 (97) 95 Intake and Output 08/20/20 08/21/20 19:00 07:00 Intake Total 1330 ml 200 ml Balance 1330 ml 200 ml Intake Oral 400 ml 200 ml IV Total 930 ml # Voids 1 2 Laboratory Tests Test 08/20/20 20:54 08/21/20 05:25 08/21/20 05:59 POC Whole Blood Glucose 97 MG/DL (74-106) 87 MG/DL (74-106) White Blood Count 7.2 K/UL (4.8-10.8) Red Blood Count 5.40 M/UL (4.70-6.10) Hemoglobin 14.5 G/DL (14.2-18.0) Hematocrit 44.3 % (42.0-52.0) Mean Corpuscular Volume 82 FL (80-99) Mean Corpuscular Hemoglobin 26.9 PG (27.0-31.0) L Mean Corpuscular Hemoglobin Concent 32.8 G/DL (32.0-36.0) Red Cell Distribution Width 13.6 % (11.6-14.8) Platelet Count 169 K/UL (150-450) Mean Platelet Volume 7.2 FL (6.5-10.1) Neutrophils (%) (Auto) 79.0 % (45.0-75.0) H Lymphocytes (%) (Auto) 10.9 % (20.0-45.0) L Monocytes (%) (Auto) 9.6 % (1.0-10.0) Eosinophils (%) (Auto) 0.3 % (0.0-3.0) Basophils (%) (Auto) 0.3 % (0.0-2.0) Sodium Level 141 MMOL/L (136-145) Potassium Level 4.0 MMOL/L (3.5-5.1) Chloride Level 109 MMOL/L (98-107) H Carbon Dioxide Level 24 MMOL/L (21-32) Anion Gap 8 mmol/L (5-15) Blood Urea Nitrogen 28 mg/dL (7-18) H Creatinine 1.2 MG/DL (0.55-1.30) Estimat Glomerular Filtration Rate 57.4 mL/min (>60) Glucose Level 93 MG/DL (74-106) Calcium Level 8.4 MG/DL (8.5-10.1) L Total Bilirubin 0.4 MG/DL (0.2-1.0) Direct Bilirubin 0.1 MG/DL (0.0-0.3) Aspartate Amino Transf (AST/SGOT) 20 U/L (15-37) Alanine Aminotransferase (ALT/SGPT) 18 U/L (12-78) Alkaline Phosphatase 72 U/L (46-116) Total Protein 6.0 G/DL (6.4-8.2) L Albumin 2.1 G/DL (3.4-5.0) L Globulin 3.9 g/dL Albumin/Globulin Ratio 0.5 (1.0-2.7) L Objective HEAD AND NECK: no JVD. LUNGS: Coarse rhonchi. CARDIOVASCULAR: Regular S1 and S2 with no gallop or murmur. ABDOMEN: Soft. EXTREMITIES: No pitting edema. Sabino Goncalves MD Aug 21, 2020 12:12
[2020-08-21] MEDS: Maintenance Dose:Remdesivir 100mg/NS 230ml x 4 Doses IV SCH ×2 (15:00)
--- NOTE | 2020-08-21 18:05 | Nephrology Progress Note ---
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 Renal parameters are stable. Continue per consultants. August 20: Labs reviewed. Creatinine now normalized. Electrolytes within normal limit. Continue per consultants. Antibiotics Slow hydrate with normal saline Monitor renal parameters Keep the blood pressure blood sugar in check Per orders Subjective ROS Limited/Unobtainable: No Constitutional: Reports: malaise, weakness Objective Objective Last 24 Hour Vital Signs Date Time Temp Pulse Resp B/P (MAP) Pulse Ox O2 Delivery O2 Flow Rate FiO2 08/21/20 16:00 97.5 65 20 116/52 (73) 93 08/21/20 12:00 75 08/21/20 12:00 97.5 58 20 124/49 (74) 95 08/21/20 09:00 Nasal Cannula 5.0 08/21/20 08:00 97.5 66 20 131/84 (100) 96 08/21/20 06:00 97.0 64 20 115/50 (71) 93 08/21/20 04:00 96.8 65 20 115/50 (71) 92 08/21/20 04:00 62 08/21/20 00:00 63 08/21/20 00:00 96.8 65 20 119/84 (96) 92 08/20/20 21:00 Nasal Cannula 5.0 08/20/20 20:00 98.6 74 20 135/62 (86) 92 08/20/20 20:00 70 Intake and Output 08/20/20 08/21/20 19:00 07:00 Intake Total 1330 ml 200 ml Balance 1330 ml 200 ml Intake Oral 400 ml 200 ml IV Total 930 ml # Voids 1 2 Current Medications Medications (Trade) Dose Ordered Sig/Amaya Route PRN Reason Start Time Stop Time Status Last Admin Dose Admin Acetaminophen (Tylenol) 650 mg Q4H PRN ORAL Temp >100.5 08/17/20 19:45 09/16/20 19:44 Albuterol/ Ipratropium (Combivent Respimat) 1 puff Q4H PRN INH Shortness of Breath 08/18/20 13:00 09/17/20 12:59 Apixaban (Eliquis) 5 mg BID ORAL 08/18/20 18:00 11/16/20 17:59 08/21/20 17:36 Azithromycin 250 mg/Dextrose 275 ml @ 275 mls/hr Q24HRS IV 08/19/20 10:00 08/24/20 09:59 08/21/20 10:30 Dexamethasone (Decadron) 6 mg DAILY ORAL 08/18/20 09:00 08/26/20 12:00 08/21/20 10:00 Dextrose (Dextrose 50%) 25 ml Q30M PRN IV Hypoglycemia 08/18/20 11:45 11/16/20 11:44 Dextrose (Dextrose 50%) 50 ml Q30M PRN IV Hypoglycemia 08/18/20 11:45 11/16/20 11:44 Diazepam (Valium) 5 mg HSPRN PRN ORAL For Anxiety 08/17/20 19:45 08/24/20 19:44 08/18/20 23:14 Ertapenem 1 gm/ Sodium Chloride 55 ml @ 110 mls/hr Q24H IV 08/20/20 09:00 08/25/20 08:59 08/21/20 10:00 Insulin Aspart (NovoLOG) BEFORE MEALS AND HS SUBQ 08/18/20 16:30 11/16/20 16:29 08/21/20 17:57 Ondansetron HCl (Zofran) 4 mg Q6H PRN IVP Nausea & Vomiting 08/17/20 19:45 09/16/20 19:44 Pantoprazole (Protonix) 40 mg DAILY ORAL 08/18/20 09:00 09/17/20 08:59 08/21/20 10:01 Polyethylene Glycol (Miralax) 17 gm DAILYPRN PRN ORAL Constipation 08/17/20 19:45 09/16/20 19:44 08/19/20 17:56 Promethazine HCl/ Codeine (Phenergan with Codeine) 5 ml Q6H PRN ORAL cough 08/17/20 19:45 09/16/20 19:44 Remdesivir 100 mg/ Sodium Chloride 250 ml @ 250 mls/hr Q24H IV 08/20/20 15:00 08/23/20 15:59 08/21/20 15:00 Sodium Chloride 1,000 ml @ 50 mls/hr Q20H IV 08/18/20 18:30 09/17/20 18:29 08/21/20 06:01 Tamsulosin HCl (Flomax) 0.4 mg BID ORAL 08/18/20 09:00 09/17/20 08:59 08/21/20 17:36 Laboratory Tests 08/20/20 20:54: POC Whole Blood Glucose 97 08/21/20 05:25: White Blood Count 7.2, Red Blood Count 5.40, Hemoglobin 14.5, Hematocrit 44.3, Mean Corpuscular Volume 82, Mean Corpuscular Hemoglobin 26.9L, Mean Corpuscular Hemoglobin Concent 32.8, Red Cell Distribution Width 13.6, Platelet Count 169, Mean Platelet Volume 7.2, Neutrophils (%) (Auto) 79.0H, Lymphocytes (%) (Auto) 10.9L, Monocytes (%) (Auto) 9.6, Eosinophils (%) (Auto) 0.3, Basophils (%) (Auto) 0.3, Sodium Level 141, Potassium Level 4.0, Chloride Level 109H, Carbon Dioxide Level 24, Anion Gap 8, Blood Urea Nitrogen 28H, Creatinine 1.2, Estimat Glomerular Filtration Rate 57.4, Glucose Level 93, Calcium Level 8.4L, Total Bilirubin 0.4, Direct Bilirubin 0.1, Aspartate Amino Transf (AST/SGOT) 20, Alanine Aminotransferase (ALT/SGPT) 18, Alkaline Phosphatase 72, Total Protein 6.0L, Albumin 2.1L, Globulin 3.9, Albumin/Globulin Ratio 0.5L 08/21/20 05:59: POC Whole Blood Glucose 87 08/21/20 17:53: POC Whole Blood Glucose 163H Height (Feet): 5 Height (Inches): 8.00 Weight (Pounds): 163 General Appearance: no apparent distress Cardiovascular: normal rate Respiratory/Chest: decreased breath sounds Abdomen: soft Devonte Zuniga MD Aug 21, 2020 18:05
--- NOTE | 2020-08-21 19:23 | NUR ---
NURSE HAND-OFF REPORT: Important Events on Shift:[] notified supervisor [place], and 2 engineering personnel about his light not working, light has not been fixed pt is upset. Also notified his sister that pt does not have ph rooms director or the paste to keep dentures in place. she will try to arrange someone from [place] to bring him his things. Patient Status: [] full Diet: []cardiac Pending Orders: [] Pending Results/Labs:[] Pending MD notification:[] Latest Vital Signs: Temperature 97.5 , Pulse 68 , B/P 116 /52 , Respiratory Rate 20 , O2 SAT 93 , Nasal Cannula, O2 Flow Rate 5.0 . Vital Sign Comment: [] EKG Rhythm: Sinus Rhythm w/ BBB Rhythm change?: N Notified?: Y -Dr. Sacha GLASS Response: Message left await call Latest Wong Fall Score: 40 Fall Risk: Medium Risk Safety Measures: Call light Within Reach, Bed Alarm Zone 1, Side Rails Side Rails x2, Bed position Low and Locked. Fall Precautions: y Yellow Socks y Yellow Gown y Patient Fall Education y Report given to [].Russell Leung/BRYAN
--- NOTE | 2020-08-21 19:30 | NUR ---
NURSE NOTES: Patient received from BRYAN Mckeon. Patient is awake, alert and oriented x 4. Patient is able to verbalize her needs, patient's complaining about his light not working, already notified engineering per AM nurse. Patient has a 5 L nasal cannula with no signs of acute respiratory distress noted. Patient has a urinal in bed. Patient has a 20 gauge IV on his right AC with NS running at 50 ml/hr. Bed is in the lowest position and locked, call light within reach. Will continue to monitor.
--- NOTE | 2020-08-21 21:18 | General Progress Note ---
Subjective ROS Limited/Unobtainable: Yes Allergies: Coded Allergies: No Known Allergies (Unverified , 01/04/19) Objective Last 24 Hour Vital Signs Date Time Temp Pulse Resp B/P (MAP) Pulse Ox O2 Delivery O2 Flow Rate FiO2 08/21/20 16:00 68 08/21/20 16:00 97.5 65 20 116/52 (73) 93 08/21/20 12:00 75 08/21/20 12:00 97.5 58 20 124/49 (74) 95 08/21/20 09:00 Nasal Cannula 5.0 08/21/20 08:00 97.5 66 20 131/84 (100) 96 08/21/20 06:00 97.0 64 20 115/50 (71) 93 08/21/20 04:00 96.8 65 20 115/50 (71) 92 08/21/20 04:00 62 08/21/20 00:00 63 08/21/20 00:00 96.8 65 20 119/84 (96) 92 Intake and Output 08/20/20 08/21/20 19:00 07:00 Intake Total 1330 ml 200 ml Balance 1330 ml 200 ml Intake Oral 400 ml 200 ml IV Total 930 ml # Voids 1 2 Laboratory Tests 08/21/20 05:25: White Blood Count 7.2, Red Blood Count 5.40, Hemoglobin 14.5, Hematocrit 44.3, Mean Corpuscular Volume 82, Mean Corpuscular Hemoglobin 26.9L, Mean Corpuscular Hemoglobin Concent 32.8, Red Cell Distribution Width 13.6, Platelet Count 169, Mean Platelet Volume 7.2, Neutrophils (%) (Auto) 79.0H, Lymphocytes (%) (Auto) 10.9L, Monocytes (%) (Auto) 9.6, Eosinophils (%) (Auto) 0.3, Basophils (%) (Auto) 0.3, Sodium Level 141, Potassium Level 4.0, Chloride Level 109H, Carbon Dioxide Level 24, Anion Gap 8, Blood Urea Nitrogen 28H, Creatinine 1.2, Estimat Glomerular Filtration Rate 57.4, Glucose Level 93, Calcium Level 8.4L, Total Bilirubin 0.4, Direct Bilirubin 0.1, Aspartate Amino Transf (AST/SGOT) 20, Alanine Aminotransferase (ALT/SGPT) 18, Alkaline Phosphatase 72, Total Protein 6.0L, Albumin 2.1L, Globulin 3.9, Albumin/Globulin Ratio 0.5L 08/21/20 05:59: POC Whole Blood Glucose 87 08/21/20 17:53: POC Whole Blood Glucose 163H Height (Feet): 5 Height (Inches): 8.00 Weight (Pounds): 163 Assessment/Plan Problem List: (1) Renal failure (ARF), acute on chronic ICD Codes: N17.9 - Acute kidney failure, unspecified; N18.9 - Chronic kidney disease, unspecified SNOMED: 970137833 (2) Diabetes mellitus ICD Codes: E11.9 - Type 2 diabetes mellitus without complications SNOMED: 33335490 (3) Sepsis due to urinary tract infection ICD Codes: A41.9 - Sepsis, unspecified organism; N39.0 - Urinary tract infection, site not specified SNOMED: 658773623 (4) Episode of generalized weakness ICD Codes: R53.1 - Weakness SNOMED: 09773039 (5) Renal failure (ARF), acute on chronic ICD Codes: N17.9 - Acute kidney failure, unspecified; N18.9 - Chronic kidney disease, unspecified SNOMED: 908873165 (6) CVA, old, hemiparesis ICD Codes: I69.359 - Hemiplegia and hemiparesis following cerebral infarction affecting unspecified side SNOMED: 163465766 (7) Hypoxia ICD Codes: R09.02 - Hypoxemia SNOMED: 076613579 (8) 2019 novel coronavirus detected ICD Codes: U07.1 - COVID-19 SNOMED: 3521824269964317 (9) BPH (benign prostatic hyperplasia) ICD Codes: N40.0 - Benign prostatic hyperplasia without lower urinary tract symptoms SNOMED: 189374292 Status: progressing, unchanged Assessment/Plan: covid + hypoxia arf improved prn supportive rx dm is stable sepsis Jose David Headley MD Aug 21, 2020 21:18
[2020-08-22] VITALS: BP 116/54
[2020-08-22 04:00] VITALS: BP 110/53
[2020-08-22] MEDS: NovoLOG Insulin Flexpen SUBQ SCH ×4 (06:31→21:00)
--- NOTE | 2020-08-22 07:20 | NUR ---
NURSE HAND-OFF REPORT: Important Events on Shift:[Patient had non sustained bradycardia of 44, woke patient up and went back to sinus rhythm, asymptomatic. Endorsed to AM nurse. Reported to charge nurse] Patient Status: [Stable] Diet: [Cardiac diet] Pending Orders: [] Pending Results/Labs:[] Pending MD notification:[] Latest Vital Signs: Temperature 96.6 , Pulse 58 , B/P 110 /53 , Respiratory Rate 24 , O2 SAT 92 , Nasal Cannula, O2 Flow Rate 5.0 . Vital Sign Comment: [] EKG Rhythm: SB w/ BBB Rhythm change?: N MD Notified?: N -Dr. Sacha GLASS Response: Message left await call Latest Wong Fall Score: 40 Fall Risk: Medium Risk Safety Measures: Call light Within Reach, Bed Alarm Zone 1, Side Rails Side Rails x2, Bed position Low and Locked. Fall Precautions: Yellow Gown Patient Fall Education Report given to [BRYAN Mckeon].
--- NOTE | 2020-08-22 07:53 | Infectious Diseases Prog Note ---
Assessment/Plan 84yo M with: Afebrile Normal WBC Lymphopenia COVID pneumonia, severe Acute hypoxic resp failure 2/2 COVID pna UTI/cystitis 08/17 BCx NTD UCx +ESBL E.coli CXR: No significant change in tortuosity/ectasia of the thoracic aorta. Negative for cardiac enlargement. Negative for focal consolidation, pneumothorax or pleural fluid collections. COVID rapid test positive, PCR positive 08/22 CXR: New or markedly worsened bilateral infiltrates, since prior exam of 5 days earlier Cr 1.8, improving 08/19 Renal US: Negative for hydronephrosis. 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 Bilateral renal cysts, large on the right. Plan: Cont RDV #4/5 given improved CATHERINE Cont dexamethasone 6mg daily #5/ Cont ertapenem #4/5 for UTI Cont azithro #5/5 given COVID pna, empiric in case of superinfection Convalescent plasma unfortunately not available at this institution so unable to give, additionally unclear if it improves mortality/outcomes or not Monitor CBC/CMP Monitor temp curve, hemodynamics Monitor resp status D/w RN Thank you for this consult. [facility] will continue to follow. Subjective Allergies: Coded Allergies: No Known Allergies (Unverified , 01/04/19) AF NAD on 5L NC Many questions/complaints, but healthwise feeling about the same WBC 8.3 Objective Last 24 Hour Vital Signs Date Time Temp Pulse Resp B/P (MAP) Pulse Ox O2 Delivery O2 Flow Rate FiO2 08/22/20 04:00 96.6 58 24 110/53 (72) 92 08/22/20 00:00 96.0 64 22 116/54 (74) 92 08/22/20 00:00 54 08/21/20 21:00 Nasal Cannula 5.0 08/21/20 20:00 96.4 57 24 126/51 (76) 93 08/21/20 20:00 57 08/21/20 16:00 68 08/21/20 16:00 97.5 65 20 116/52 (73) 93 08/21/20 12:00 75 08/21/20 12:00 97.5 58 20 124/49 (74) 95 08/21/20 09:00 Nasal Cannula 5.0 08/21/20 08:00 97.5 66 20 131/84 (100) 96 Height (Feet): 5 Height (Inches): 8.00 Weight (Pounds): 163 Gen: NAD HEENT: NCAT Pulm: BL chest rise Abd: Non-distended Ext: No c/c/e Skin: No visible rashes Neuro: Awake, interactive Laboratory Tests Test 08/21/20 17:53 08/21/20 21:48 POC Whole Blood Glucose 163 MG/DL (74-106) H Pending Current Medications Medications (Trade) Dose Ordered Sig/Amaya Route PRN Reason Start Time Stop Time Status Last Admin Dose Admin Acetaminophen (Tylenol) 650 mg Q4H PRN ORAL Temp >100.5 08/17/20 19:45 09/16/20 19:44 Albuterol/ Ipratropium (Combivent Respimat) 1 puff Q4H PRN INH Shortness of Breath 08/18/20 13:00 09/17/20 12:59 Apixaban (Eliquis) 5 mg BID ORAL 08/18/20 18:00 11/16/20 17:59 08/21/20 17:36 Azithromycin 250 mg/Dextrose 275 ml @ 275 mls/hr Q24HRS IV 08/19/20 10:00 08/24/20 09:59 08/21/20 10:30 Dexamethasone (Decadron) 6 mg DAILY ORAL 08/18/20 09:00 08/26/20 12:00 08/21/20 10:00 Dextrose (Dextrose 50%) 25 ml Q30M PRN IV Hypoglycemia 08/18/20 11:45 11/16/20 11:44 Dextrose (Dextrose 50%) 50 ml Q30M PRN IV Hypoglycemia 08/18/20 11:45 11/16/20 11:44 Diazepam (Valium) 5 mg HSPRN PRN ORAL For Anxiety 08/17/20 19:45 08/24/20 19:44 08/18/20 23:14 Ertapenem 1 gm/ Sodium Chloride 55 ml @ 110 mls/hr Q24H IV 08/20/20 09:00 08/25/20 08:59 08/21/20 10:00 Insulin Aspart (NovoLOG) BEFORE MEALS AND HS SUBQ 08/18/20 16:30 11/16/20 16:29 08/22/20 06:31 Ondansetron HCl (Zofran) 4 mg Q6H PRN IVP Nausea & Vomiting 08/17/20 19:45 09/16/20 19:44 Pantoprazole (Protonix) 40 mg DAILY ORAL 08/18/20 09:00 09/17/20 08:59 08/21/20 10:01 Polyethylene Glycol (Miralax) 17 gm DAILYPRN PRN ORAL Constipation 08/17/20 19:45 09/16/20 19:44 08/19/20 17:56 Promethazine HCl/ Codeine (Phenergan with Codeine) 5 ml Q6H PRN ORAL cough 08/17/20 19:45 09/16/20 19:44 Remdesivir 100 mg/ Sodium Chloride 250 ml @ 250 mls/hr Q24H IV 08/20/20 15:00 08/23/20 15:59 08/21/20 15:00 Sodium Chloride 1,000 ml @ 50 mls/hr Q20H IV 08/18/20 18:30 09/17/20 18:29 08/22/20 03:08 Tamsulosin HCl (Flomax) 0.4 mg BID ORAL 08/18/20 09:00 09/17/20 08:59 08/21/20 17:36 Aneta Nguyen M.D. Aug 22, 2020 07:53
[2020-08-22 08:00] VITALS: BP 140/60
--- NOTE | 2020-08-22 08:05 | NUR ---
NURSE NOTES: pt in bed no signs on ekg monitor tech, no signs of cardiac or respiratory distress, Bed in lowest position call light within reach. Will continue to monitor pt. pt reports no pain.
[2020-08-22 08:39] LABS: PHOSPHORUS 3.4 MG/DL (2.5-4.9)
[2020-08-22 08:43] LABS: HEMATOCRIT 46.9 % (42.0-52.0); HEMOGLOBIN 15.6 G/DL (14.2-18.0); MEAN CORPUSCULAR VOLUME 80 FL (80-99); PLATELET COUNT 238 K/UL (150-450); RED BLOOD COUNT 5.87 M/UL (4.70-6.10); RED CELL DISTRIBUTION WIDTH 13.2 % (11.6-14.8); WHITE BLOOD COUNT 8.3 K/UL (4.8-10.8)
[2020-08-22 08:44] LABS: ALANINE AMINOTRANSFERASE 16 U/L (12-78); ALBUMIN 2.2 G/DL (3.4-5.0); ALBUMIN/GLOBULIN RATIO 0.5 (1.0-2.7); ALKALINE PHOSPHATASE 80 U/L (46-116); ANION GAP 6 mmol/L (5-15); ASPARTATE AMINO TRANSFERASE 17 U/L (15-37); BILIRUBIN,DIRECT 0.1 MG/DL (0.0-0.3); BILIRUBIN,TOTAL 0.4 MG/DL (0.2-1.0); BLOOD UREA NITROGEN 33 mg/dL (7-18); CALCIUM 8.6 MG/DL (8.5-10.1); CARBON DIOXIDE 25 MMOL/L (21-32); CHLORIDE 111 MMOL/L (98-107); CREATININE 1.1 MG/DL (0.55-1.30); POTASSIUM 4.4 MMOL/L (3.5-5.1); SODIUM 142 MMOL/L (136-145)
[2020-08-22 08:46] LABS: BASOPHILS % (AUTO) 0.3 % (0.0-2.0); LYMPHOCYTES % (AUTO) 5.6 % (20.0-45.0); MONOCYTES % (AUTO) 6.3 % (1.0-10.0); NEUTROPHILS % (AUTO) 87.7 % (45.0-75.0)
[2020-08-22] MEDS: Ertapenem 1 GM in NS 55 ML IV SCH (09:31)
[2020-08-22] MEDS: Eliquis 5mg tablet ORAL SCH ×2 (09:32→18:06)
[2020-08-22] MEDS: Tamsulosin 0.4mg cap ORAL SCH ×2 (09:32→18:06)
--- NOTE | 2020-08-22 10:24 | Pulmonology Progress Note ---
Subjective ROS Limited/Unobtainable: Yes Constitutional: Reports: no symptoms HEENT: Repors: no symptoms Allergies: Coded Allergies: No Known Allergies (Unverified , 01/04/19) All Systems: reviewed and negative except above Objective Last 24 Hour Vital Signs Date Time Temp Pulse Resp B/P (MAP) Pulse Ox O2 Delivery O2 Flow Rate FiO2 08/22/20 08:00 96.4 91 20 140/60 (86) 92 08/22/20 04:00 96.6 58 24 110/53 (72) 92 08/22/20 00:00 96.0 64 22 116/54 (74) 92 08/22/20 00:00 54 08/21/20 21:00 Nasal Cannula 5.0 08/21/20 20:00 96.4 57 24 126/51 (76) 93 08/21/20 20:00 57 08/21/20 16:00 68 08/21/20 16:00 97.5 65 20 116/52 (73) 93 08/21/20 12:00 75 08/21/20 12:00 97.5 58 20 124/49 (74) 95 Intake and Output 08/21/20 08/22/20 19:00 07:00 Intake Total 250 ml Balance 250 ml Intake Oral 250 ml # Voids 2 2 # Bowel Movements 1 General Appearance: WD/WN HEENT: normocephalic, atraumatic Respiratory: chest wall non-tender, lungs clear Cardiovascular: normal peripheral pulses, regular rhythm Abdomen: normal bowel sounds, soft, non tender Genitourinary: normal external genitalia Extremities: no clubbing 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 Lymphatic: no neck adenopathy Laboratory Tests 08/21/20 17:53: POC Whole Blood Glucose 163H 08/21/20 21:48: POC Whole Blood Glucose [Pending] 08/22/20 07:17: White Blood Count 8.3, Red Blood Count 5.87, Hemoglobin 15.6, Hematocrit 46.9, Mean Corpuscular Volume 80, Mean Corpuscular Hemoglobin 26.6L, Mean Corpuscular Hemoglobin Concent 33.3, Red Cell Distribution Width 13.2, Platelet Count 238, Mean Platelet Volume 7.4, Neutrophils (%) (Auto) 87.7H, Lymphocytes (%) (Auto) 5.6L, Monocytes (%) (Auto) 6.3, Eosinophils (%) (Auto) 0.0, Basophils (%) (Auto) 0.3, Erythrocyte Sedimentation Rate 25H, Sodium Level 142, Potassium Level 4.4, Chloride Level 111H, Carbon Dioxide Level 25, Anion Gap 6, Blood Urea Nitrogen 33H, Creatinine 1.1, Estimat Glomerular Filtration Rate > 60, Glucose Level 149H , Calcium Level 8.6, Phosphorus Level 3.4, Magnesium Level 2.2, Total Bilirubin 0.4, Direct Bilirubin 0.1, Aspartate Amino Transf (AST/SGOT) 17, Alanine Aminotransferase (ALT/SGPT) 16, Alkaline Phosphatase 80, C-Reactive Protein, Quantitative 15.5H, Total Protein 6.4, Albumin 2.2L, Globulin 4.2, Albumin/Globulin Ratio 0.5L Current Medications Medications (Trade) Dose Ordered Sig/Amaya Route PRN Reason Start Time Stop Time Status Last Admin Dose Admin Acetaminophen (Tylenol) 650 mg Q4H PRN ORAL Temp >100.5 08/17/20 19:45 09/16/20 19:44 Albuterol/ Ipratropium (Combivent Respimat) 1 puff Q4H PRN INH Shortness of Breath 08/18/20 13:00 09/17/20 12:59 Apixaban (Eliquis) 5 mg BID ORAL 08/18/20 18:00 11/16/20 17:59 08/22/20 09:32 Azithromycin 250 mg/Dextrose 275 ml @ 275 mls/hr Q24HRS IV 08/19/20 10:00 08/24/20 09:59 08/21/20 10:30 Dexamethasone (Decadron) 6 mg DAILY ORAL 08/18/20 09:00 08/26/20 12:00 08/22/20 09:32 Dextrose (Dextrose 50%) 25 ml Q30M PRN IV Hypoglycemia 08/18/20 11:45 11/16/20 11:44 Dextrose (Dextrose 50%) 50 ml Q30M PRN IV Hypoglycemia 08/18/20 11:45 11/16/20 11:44 Diazepam (Valium) 5 mg HSPRN PRN ORAL For Anxiety 08/17/20 19:45 08/24/20 19:44 08/18/20 23:14 Ertapenem 1 gm/ Sodium Chloride 55 ml @ 110 mls/hr Q24H IV 08/20/20 09:00 08/25/20 08:59 08/22/20 09:31 Insulin Aspart (NovoLOG) BEFORE MEALS AND HS SUBQ 08/18/20 16:30 11/16/20 16:29 08/22/20 06:31 Ondansetron HCl (Zofran) 4 mg Q6H PRN IVP Nausea & Vomiting 08/17/20 19:45 09/16/20 19:44 Pantoprazole (Protonix) 40 mg DAILY ORAL 08/18/20 09:00 09/17/20 08:59 08/22/20 09:31 Polyethylene Glycol (Miralax) 17 gm DAILYPRN PRN ORAL Constipation 08/17/20 19:45 09/16/20 19:44 08/19/20 17:56 Promethazine HCl/ Codeine (Phenergan with Codeine) 5 ml Q6H PRN ORAL cough 08/17/20 19:45 09/16/20 19:44 Remdesivir 100 mg/ Sodium Chloride 250 ml @ 250 mls/hr Q24H IV 08/20/20 15:00 08/23/20 15:59 08/21/20 15:00 Sodium Chloride 1,000 ml @ 50 mls/hr Q20H IV 08/18/20 18:30 09/17/20 18:29 08/22/20 03:08 Tamsulosin HCl (Flomax) 0.4 mg BID ORAL 08/18/20 09:00 09/17/20 08:59 08/22/20 09:32 Assessment/Plan Problems: (1) Hypoxia (2) 2019 novel coronavirus detected (3) CVA, old, hemiparesis (4) Hypertension (5) Diabetes mellitus (6) BPH (benign prostatic hyperplasia) Assessment/Plan no new complains CRP is lower to 15 no fever all reviewed doing better respiratory isolation steroids and Remdesevir titrate fio2 to sat of 92% iv abx check inflammatory markers sliding scale diabetic diet repeat CXR pending Angelita Alarcon MD Aug 22, 2020 10:24
--- NOTE | 2020-08-22 10:42 | Diagnostic Imaging Report ---
Indication: Shortness of breath Technique: One view of the chest Comparison: 08/17/2020 Findings: Exam is markedly hypoventilatory, with interval crowding of the bronchovascular markings bilaterally and left basilar atelectasis. There is considerable residual airspace consolidation in the right lung, new or increased since the prior study, with an upper lobe predominance. There is also some perihilar and left basilar consolidation on the left. Impression: New or markedly worsened bilateral infiltrates, since prior exam of 5 days earlier
[2020-08-22] MEDS: Azithromycin 250 MG in D5W 275 ML IV SCH (11:59)
[2020-08-22 12:00] VITALS: BP 131/65
--- NOTE | 2020-08-22 15:44 | Cardiac Electrophysiology PN ---
Assessment/Plan Assessment/Plan 1. COVID-19 pneumonia. On Remdesevir, ceftriaxone, albuterol, dexamethasone and 5 liter NC and apixaban. 2. Hypertension. Stable off antihypertensive agents. 3. Diabetes. 4. History of CVA with hemiparesis. 5. Benign prostatic hypertrophy. 6. Sinus tach due to Covid Subjective Subjective Alert in NAD on 5 liter Nasal Cannula in Covid isolation Objective Last 24 Hour Vital Signs Date Time Temp Pulse Resp B/P (MAP) Pulse Ox O2 Delivery O2 Flow Rate FiO2 08/22/20 09:00 Nasal Cannula 5.0 08/22/20 08:00 96.4 91 20 140/60 (86) 92 08/22/20 04:00 96.6 58 24 110/53 (72) 92 08/22/20 00:00 96.0 64 22 116/54 (74) 92 08/22/20 00:00 54 08/21/20 21:00 Nasal Cannula 5.0 08/21/20 20:00 96.4 57 24 126/51 (76) 93 08/21/20 20:00 57 08/21/20 16:00 68 08/21/20 16:00 97.5 65 20 116/52 (73) 93 Intake and Output 08/21/20 08/22/20 19:00 07:00 Intake Total 250 ml Balance 250 ml Intake Oral 250 ml # Voids 2 2 # Bowel Movements 1 Laboratory Tests Test 08/21/20 17:53 08/21/20 21:48 08/22/20 07:17 08/22/20 11:45 POC Whole Blood Glucose 163 MG/DL (74-106) H Pending 139 MG/DL (74-106) H White Blood Count 8.3 K/UL (4.8-10.8) Red Blood Count 5.87 M/UL (4.70-6.10) Hemoglobin 15.6 G/DL (14.2-18.0) Hematocrit 46.9 % (42.0-52.0) Mean Corpuscular Volume 80 FL (80-99) Mean Corpuscular Hemoglobin 26.6 PG (27.0-31.0) L Mean Corpuscular Hemoglobin Concent 33.3 G/DL (32.0-36.0) Red Cell Distribution Width 13.2 % (11.6-14.8) Platelet Count 238 K/UL (150-450) Mean Platelet Volume 7.4 FL (6.5-10.1) Neutrophils (%) (Auto) 87.7 % (45.0-75.0) H Lymphocytes (%) (Auto) 5.6 % (20.0-45.0) L Monocytes (%) (Auto) 6.3 % (1.0-10.0) Eosinophils (%) (Auto) 0.0 % (0.0-3.0) Basophils (%) (Auto) 0.3 % (0.0-2.0) Erythrocyte Sedimentation Rate 25 MM/HR (0-20) H Sodium Level 142 MMOL/L (136-145) Potassium Level 4.4 MMOL/L (3.5-5.1) Chloride Level 111 MMOL/L (98-107) H Carbon Dioxide Level 25 MMOL/L (21-32) Anion Gap 6 mmol/L (5-15) Blood Urea Nitrogen 33 mg/dL (7-18) H Creatinine 1.1 MG/DL (0.55-1.30) Estimat Glomerular Filtration Rate > 60 mL/min (>60) Glucose Level 149 MG/DL (74-106) H Calcium Level 8.6 MG/DL (8.5-10.1) Phosphorus Level 3.4 MG/DL (2.5-4.9) Magnesium Level 2.2 MG/DL (1.8-2.4) Total Bilirubin 0.4 MG/DL (0.2-1.0) Direct Bilirubin 0.1 MG/DL (0.0-0.3) Aspartate Amino Transf (AST/SGOT) 17 U/L (15-37) Alanine Aminotransferase (ALT/SGPT) 16 U/L (12-78) Alkaline Phosphatase 80 U/L (46-116) C-Reactive Protein, Quantitative 15.5 mg/dL (0.00-0.90) H Total Protein 6.4 G/DL (6.4-8.2) Albumin 2.2 G/DL (3.4-5.0) L Globulin 4.2 g/dL Albumin/Globulin Ratio 0.5 (1.0-2.7) L Objective HEAD AND NECK: no JVD. LUNGS: Coarse rhonchi. CARDIOVASCULAR: Regular S1 and S2 with no gallop or murmur. ABDOMEN: Soft. EXTREMITIES: No pitting edema. Sabino Goncalves MD Aug 22, 2020 15:44
[2020-08-22] MEDS: Maintenance Dose:Remdesivir 100mg/NS 230ml x 4 Doses IV SCH ×2 (15:48)
--- NOTE | 2020-08-22 15:56 | Nephrology Progress Note ---
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 Stable renal parameters. Continue per consultants. August 21: Labs were reviewed. Renal parameters are stable. Continue per consultants. August 20: Labs reviewed. Creatinine now normalized. Electrolytes within normal limit. Continue per consultants. Antibiotics Slow hydrate with normal saline Monitor renal parameters Keep the blood pressure blood sugar in check Per orders Subjective ROS Limited/Unobtainable: No Constitutional: Reports: malaise Objective Objective Last 24 Hour Vital Signs Date Time Temp Pulse Resp B/P (MAP) Pulse Ox O2 Delivery O2 Flow Rate FiO2 08/22/20 09:00 Nasal Cannula 5.0 08/22/20 08:00 96.4 91 20 140/60 (86) 92 08/22/20 04:00 96.6 58 24 110/53 (72) 92 08/22/20 00:00 96.0 64 22 116/54 (74) 92 08/22/20 00:00 54 08/21/20 21:00 Nasal Cannula 5.0 08/21/20 20:00 96.4 57 24 126/51 (76) 93 08/21/20 20:00 57 08/21/20 16:00 68 08/21/20 16:00 97.5 65 20 116/52 (73) 93 Intake and Output 08/21/20 08/22/20 19:00 07:00 Intake Total 250 ml Balance 250 ml Intake Oral 250 ml # Voids 2 2 # Bowel Movements 1 Current Medications Medications (Trade) Dose Ordered Sig/Amaya Route PRN Reason Start Time Stop Time Status Last Admin Dose Admin Acetaminophen (Tylenol) 650 mg Q4H PRN ORAL Temp >100.5 08/17/20 19:45 09/16/20 19:44 Albuterol/ Ipratropium (Combivent Respimat) 1 puff Q4H PRN INH Shortness of Breath 08/18/20 13:00 09/17/20 12:59 Apixaban (Eliquis) 5 mg BID ORAL 12/13/20 18:00 11/16/20 17:59 08/22/20 09:32 Azithromycin 250 mg/Dextrose 275 ml @ 275 mls/hr Q24HRS IV 08/19/20 10:00 08/24/20 09:59 08/22/20 11:59 Dexamethasone (Decadron) 6 mg DAILY ORAL 08/18/20 09:00 08/26/20 12:00 08/22/20 09:32 Dextrose (Dextrose 50%) 25 ml Q30M PRN IV Hypoglycemia 08/18/20 11:45 11/16/20 11:44 Dextrose (Dextrose 50%) 50 ml Q30M PRN IV Hypoglycemia 08/18/20 11:45 11/16/20 11:44 Diazepam (Valium) 5 mg HSPRN PRN ORAL For Anxiety 08/17/20 19:45 08/24/20 19:44 08/18/20 23:14 Ertapenem 1 gm/ Sodium Chloride 55 ml @ 110 mls/hr Q24H IV 08/20/20 09:00 08/25/20 08:59 08/22/20 09:31 Insulin Aspart (NovoLOG) BEFORE MEALS AND HS SUBQ 08/18/20 16:30 11/16/20 16:29 08/22/20 06:31 Ondansetron HCl (Zofran) 4 mg Q6H PRN IVP Nausea & Vomiting 08/17/20 19:45 09/16/20 19:44 Pantoprazole (Protonix) 40 mg DAILY ORAL 08/18/20 09:00 09/17/20 08:59 08/22/20 09:31 Polyethylene Glycol (Miralax) 17 gm DAILYPRN PRN ORAL Constipation 08/17/20 19:45 09/16/20 19:44 08/19/20 17:56 Promethazine HCl/ Codeine (Phenergan with Codeine) 5 ml Q6H PRN ORAL cough 08/17/20 19:45 09/16/20 19:44 Remdesivir 100 mg/ Sodium Chloride 250 ml @ 250 mls/hr Q24H IV 08/20/20 15:00 08/23/20 15:59 08/22/20 15:48 Sodium Chloride 1,000 ml @ 50 mls/hr Q20H IV 08/18/20 18:30 09/17/20 18:29 08/22/20 03:08 Tamsulosin HCl (Flomax) 0.4 mg BID ORAL 08/18/20 09:00 09/17/20 08:59 08/22/20 09:32 Laboratory Tests 08/21/20 17:53: POC Whole Blood Glucose 163H 08/21/20 21:48: POC Whole Blood Glucose [Pending] 08/22/20 07:17: White Blood Count 8.3, Red Blood Count 5.87, Hemoglobin 15.6, Hematocrit 46.9, Mean Corpuscular Volume 80, Mean Corpuscular Hemoglobin 26.6L, Mean Corpuscular Hemoglobin Concent 33.3, Red Cell Distribution Width 13.2, Platelet Count 238, Mean Platelet Volume 7.4, Neutrophils (%) (Auto) 87.7H, Lymphocytes (%) (Auto) 5.6L, Monocytes (%) (Auto) 6.3, Eosinophils (%) (Auto) 0.0, Basophils (%) (Auto) 0.3, Erythrocyte Sedimentation Rate 25H, Sodium Level 142, Potassium Level 4.4, Chloride Level 111H, Carbon Dioxide Level 25, Anion Gap 6, Blood Urea Nitrogen 33H, Creatinine 1.1, Estimat Glomerular Filtration Rate > 60, Glucose Level 149H , Calcium Level 8.6, Phosphorus Level 3.4, Magnesium Level 2.2, Total Bilirubin 0.4, Direct Bilirubin 0.1, Aspartate Amino Transf (AST/SGOT) 17, Alanine Aminotransferase (ALT/SGPT) 16, Alkaline Phosphatase 80, C-Reactive Protein, Quantitative 15.5H, Total Protein 6.4, Albumin 2.2L, Globulin 4.2, Albumin/Shyla bulin Ratio 0.5L 08/22/20 11:45: POC Whole Blood Glucose 139H Height (Feet): 5 Height (Inches): 8.00 Weight (Pounds): 163 General Appearance: no apparent distress Cardiovascular: arrhythmia Respiratory/Chest: decreased breath sounds Abdomen: distended Devonte Zuniga MD Aug 22, 2020 15:56
[2020-08-22 16:00] VITALS: BP 132/59
--- NOTE | 2020-08-22 19:45 | NUR ---
NURSE HAND-OFF REPORT: Important Events on Shift:[]pt needs to assisted to eat at least to set up the meal for him to eat. pt can only use left arm. Sister will be mailing a package with dental glue for dentures and a ph check viewer. Patient Status: []full code Diet: []cardiac Pending Orders: [] Pending Results/Labs:[] Pending MD notification:[] Latest Vital Signs: Temperature 96.5 , Pulse 52 , B/P 132 /59 , Respiratory Rate 20 , O2 SAT 92 , Nasal Cannula, O2 Flow Rate 5.0 . Vital Sign Comment: [] EKG Rhythm: SB w/ BBB pac's Rhythm change?: N MD Notified?: N -Dr. Sacha GLASS Response: Message left await call Latest Wong Fall Score: 40 Fall Risk: Medium Risk Safety Measures: Call light Within Reach, Bed Alarm Zone 1, Side Rails Side Rails x2, Bed position Low and Locked. Fall Precautions: y Yellow Gown y Patient Fall Education y Report given to [] Cresencio/rn.
--- NOTE | 2020-08-22 19:50 | NUR ---
NURSE NOTES: Patient received from BRYAN Mckeon. Patient is awake, alert and oriented x 4. Patient is on 5 L nasal cannula with no signs of acute respiratory distress noted. Patient is able to verbalize his needs, patient complains of having no light in his room. Will ask charge and engineering. Patient has a 20 gauge IV on his right AC, patent and flushed. Bed is in the lowest position and locked, call light within reach. Will continue to monitor.
[2020-08-22 20:00] VITALS: BP 135/66
--- NOTE | 2020-08-22 20:56 | General Progress Note ---
Subjective ROS Limited/Unobtainable: Yes Allergies: Coded Allergies: No Known Allergies (Unverified , 01/04/19) Objective Last 24 Hour Vital Signs Date Time Temp Pulse Resp B/P (MAP) Pulse Ox O2 Delivery O2 Flow Rate FiO2 08/22/20 16:00 96.5 83 20 132/59 (83) 92 08/22/20 16:00 52 08/22/20 12:00 96.1 84 20 131/65 (87) 91 08/22/20 12:00 60 08/22/20 09:00 Nasal Cannula 5.0 08/22/20 08:00 52 08/22/20 08:00 96.4 91 20 140/60 (86) 92 08/22/20 04:00 96.6 58 24 110/53 (72) 92 08/22/20 00:00 96.0 64 22 116/54 (74) 92 08/22/20 00:00 54 08/21/20 21:00 Nasal Cannula 5.0 Intake and Output 08/21/20 08/22/20 19:00 07:00 Intake Total 250 ml Balance 250 ml Intake Oral 250 ml # Voids 2 2 # Bowel Movements 1 Laboratory Tests 08/21/20 21:48: POC Whole Blood Glucose [Pending] 08/22/20 07:17: White Blood Count 8.3, Red Blood Count 5.87, Hemoglobin 15.6, Hematocrit 46.9, Mean Corpuscular Volume 80, Mean Corpuscular Hemoglobin 26.6L, Mean Corpuscular Hemoglobin Concent 33.3, Red Cell Distribution Width 13.2, Platelet Count 238, Mean Platelet Volume 7.4, Neutrophils (%) (Auto) 87.7H, Lymphocytes (%) (Auto) 5.6L, Monocytes (%) (Auto) 6.3, Eosinophils (%) (Auto) 0.0, Basophils (%) (Auto) 0.3, Erythrocyte Sedimentation Rate 25H, Sodium Level 142, Potassium Level 4.4, Chloride Level 111H, Carbon Dioxide Level 25, Anion Gap 6, Blood Urea Nitrogen 33H, Creatinine 1.1, Estimat Glomerular Filtration Rate > 60, Glucose Level 149H , Calcium Level 8.6, Phosphorus Level 3.4, Magnesium Level 2.2, Total Bilirubin 0.4, Direct Bilirubin 0.1, Aspartate Amino Transf (AST/SGOT) 17, Alanine Aminotransferase (ALT/SGPT) 16, Alkaline Phosphatase 80, C-Reactive Protein, Quantitative 15.5H, Total Protein 6.4, Albumin 2.2L, Globulin 4.2, Albumin/Globulin Ratio 0.5L 08/22/20 11:45: POC Whole Blood Glucose 139H Height (Feet): 5 Height (Inches): 8.00 Weight (Pounds): 163 Assessment/Plan Problem List: (1) Renal failure (ARF), acute on chronic ICD Codes: N17.9 - Acute kidney failure, unspecified; N18.9 - Chronic kidney disease, unspecified SNOMED: 706636483 (2) Diabetes mellitus ICD Codes: E11.9 - Type 2 diabetes mellitus without complications SNOMED: 47073939 (3) Sepsis due to urinary tract infection ICD Codes: A41.9 - Sepsis, unspecified organism; N39.0 - Urinary tract infection, site not specified SNOMED: 148775187 (4) Episode of generalized weakness ICD Codes: R53.1 - Weakness SNOMED: 23710218 (5) Renal failure (ARF), acute on chronic ICD Codes: N17.9 - Acute kidney failure, unspecified; N18.9 - Chronic kidney disease, unspecified SNOMED: 838187925 (6) CVA, old, hemiparesis ICD Codes: I69.359 - Hemiplegia and hemiparesis following cerebral infarction affecting unspecified side SNOMED: 573780569 (7) Hypoxia ICD Codes: R09.02 - Hypoxemia SNOMED: 015163717 (8) 2019 novel coronavirus detected ICD Codes: U07.1 - COVID-19 SNOMED: 3094130660101738 (9) BPH (benign prostatic hyperplasia) ICD Codes: N40.0 - Benign prostatic hyperplasia without lower urinary tract symptoms SNOMED: 425802148 Status: progressing, unchanged Assessment/Plan: covid + not hypoxia azotmia improving no fever sepsis Jose David Headley MD Aug 22, 2020 20:55
[2020-08-23] VITALS: BP 112/61
[2020-08-23 04:00] VITALS: BP 110/57
[2020-08-23 07:01] LABS: HEMATOCRIT 43.9 % (42.0-52.0); HEMOGLOBIN 14.9 G/DL (14.2-18.0); MEAN CORPUSCULAR VOLUME 79 FL (80-99); PLATELET COUNT 254 K/UL (150-450); RED BLOOD COUNT 5.55 M/UL (4.70-6.10); RED CELL DISTRIBUTION WIDTH 13.5 % (11.6-14.8); WHITE BLOOD COUNT 12.7 K/UL (4.8-10.8)
[2020-08-23] MEDS: NovoLOG Insulin Flexpen SUBQ SCH ×4 (07:13→20:31)
[2020-08-23 07:26] LABS: ALANINE AMINOTRANSFERASE 14 U/L (12-78); ALBUMIN 2.1 G/DL (3.4-5.0); ALBUMIN/GLOBULIN RATIO 0.5 (1.0-2.7); ALKALINE PHOSPHATASE 81 U/L (46-116); ANION GAP 6 mmol/L (5-15); ASPARTATE AMINO TRANSFERASE 18 U/L (15-37); BILIRUBIN,DIRECT 0.2 MG/DL (0.0-0.3); BILIRUBIN,TOTAL 0.3 MG/DL (0.2-1.0); BLOOD UREA NITROGEN 35 mg/dL (7-18); CARBON DIOXIDE 24 MMOL/L (21-32); CHLORIDE 113 MMOL/L (98-107); CREATININE 1.1 MG/DL (0.55-1.30); POTASSIUM 4.8 MMOL/L (3.5-5.1); SODIUM 143 MMOL/L (136-145)
--- NOTE | 2020-08-23 07:30 | NUR ---
NURSE HAND-OFF REPORT: Important Events on Shift:[Patient still complains of bed light not working] Patient Status: [Stable] Diet: [Cardiac diet] Pending Orders: [] Pending Results/Labs:[] Pending MD notification:[] Latest Vital Signs: Temperature 98.9 , Pulse 77 , B/P 110 /57 , Respiratory Rate 20 , O2 SAT 92 , Nasal Cannula, O2 Flow Rate 5.0 . Vital Sign Comment: [] EKG Rhythm: SR w/, BBB Rhythm change?: N Notified?: N -Dr. Sacha GLASS Response: Message left await call Latest Wong Fall Score: 40 Fall Risk: Medium Risk Safety Measures: Call light Within Reach, Bed Alarm Zone 1, Side Rails Side Rails x2, Bed position Low and Locked. Fall Precautions: Yellow Gown Patient Fall Education Report given to [BRYAN Martinez].
[2020-08-23 07:31] LABS: PHOSPHORUS 3.3 MG/DL (2.5-4.9)
--- NOTE | 2020-08-23 07:45 | NUR ---
NURSE NOTES: Received hand-off report from Debra Avery RN. Patient in stable condition, breathing even and unlabored on 5L nasal cannula. Patient alert and oriented x4, able to verbalize needs well, bed in lowest and locked position, bed alarm on, call light within reach.
[2020-08-23 08:00] VITALS: BP 115/65
--- NOTE | 2020-08-23 08:07 | Infectious Diseases Prog Note ---
Assessment/Plan 84yo M with: Afebrile Normal WBC Lymphopenia COVID pneumonia, severe Acute hypoxic resp failure 2/2 COVID pna UTI/cystitis 08/17 BCx NTD UCx +ESBL E.coli CXR: No significant change in tortuosity/ectasia of the thoracic aorta. Negative for cardiac enlargement. Negative for focal consolidation, pneumothorax or pleural fluid collections. COVID rapid test positive, PCR positive 08/22 CXR: New or markedly worsened bilateral infiltrates, since prior exam of 5 days earlier Cr 1.8, improving 08/19 Renal US: Negative for hydronephrosis. 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 Bilateral renal cysts, large on the right. Plan: Cont RDV #5/5 given improved CATHERINE Cont dexamethasone 6mg daily #02/13 Cont ertapenem #5/5 for UTI Stop azithro #5/5 given COVID pna, empiric in case of superinfection Convalescent plasma unfortunately not available at this institution so unable to give, additionally unclear if it improves mortality/outcomes or not 08/23 SP Azithro #5 Monitor CBC/CMP Monitor temp curve, hemodynamics Monitor resp status D/w RN Thank you for this consult. [facility] will continue to follow. Subjective Allergies: Coded Allergies: No Known Allergies (Unverified , 01/04/19) AF NAD on 5L NC WBC up to 12 on steroids Objective Last 24 Hour Vital Signs Date Time Temp Pulse Resp B/P (MAP) Pulse Ox O2 Delivery O2 Flow Rate FiO2 08/23/20 04:00 77 08/23/20 04:00 98.9 75 20 110/57 (74) 92 08/23/20 00:00 73 08/23/20 00:00 96.0 77 20 112/61 (78) 93 08/22/20 21:00 Nasal Cannula 5.0 08/22/20 20:00 70 08/22/20 20:00 96.8 71 21 135/66 (89) 92 08/22/20 16:00 96.5 83 20 132/59 (83) 92 08/22/20 16:00 52 08/22/20 12:00 96.1 84 20 131/65 (87) 91 08/22/20 12:00 60 08/22/20 09:00 Nasal Cannula 5.0 Height (Feet): 5 Height (Inches): 8.00 Weight (Pounds): 163 Gen: NAD HEENT: NCAT Pulm: BL chest rise Abd: Non-distended Ext: No c/c/e Skin: No visible rashes Neuro: Awake, interactive Laboratory Tests Test 08/22/20 11:45 08/23/20 06:05 POC Whole Blood Glucose 139 MG/DL (74-106) H White Blood Count 12.7 K/UL (4.8-10.8) #H Red Blood Count 5.55 M/UL (4.70-6.10) Hemoglobin 14.9 G/DL (14.2-18.0) Hematocrit 43.9 % (42.0-52.0) Mean Corpuscular Volume 79 FL (80-99) L Mean Corpuscular Hemoglobin 26.9 PG (27.0-31.0) L Mean Corpuscular Hemoglobin Concent 34.0 G/DL (32.0-36.0) Red Cell Distribution Width 13.5 % (11.6-14.8) Platelet Count 254 K/UL (150-450) Mean Platelet Volume 6.7 FL (6.5-10.1) Neutrophils (%) (Auto) % (45.0-75.0) Lymphocytes (%) (Auto) % (20.0-45.0) Monocytes (%) (Auto) % (1.0-10.0) Eosinophils (%) (Auto) % (0.0-3.0) Basophils (%) (Auto) % (0.0-2.0) Neutrophils % (Manual) Pending Lymphocytes % (Manual) Pending Platelet Estimate Pending Platelet Morphology Pending Sodium Level 143 MMOL/L (136-145) Potassium Level 4.8 MMOL/L (3.5-5.1) Chloride Level 113 MMOL/L (98-107) H Carbon Dioxide Level 24 MMOL/L (21-32) Anion Gap 6 mmol/L (5-15) Blood Urea Nitrogen 35 mg/dL (7-18) H Creatinine 1.1 MG/DL (0.55-1.30) Estimat Glomerular Filtration Rate > 60 mL/min (>60) Glucose Level 155 MG/DL (74-106) H Calcium Level 9.0 MG/DL (8.5-10.1) Phosphorus Level 3.3 MG/DL (2.5-4.9) Magnesium Level 2.1 MG/DL (1.8-2.4) Total Bilirubin 0.3 MG/DL (0.2-1.0) Direct Bilirubin 0.2 MG/DL (0.0-0.3) Aspartate Amino Transf (AST/SGOT) 18 U/L (15-37) Alanine Aminotransferase (ALT/SGPT) 14 U/L (12-78) Alkaline Phosphatase 81 U/L (46-116) Total Protein 6.0 G/DL (6.4-8.2) L Albumin 2.1 G/DL (3.4-5.0) L Globulin 3.9 g/dL Albumin/Globulin Ratio 0.5 (1.0-2.7) L Current Medications Medications (Trade) Dose Ordered Sig/Amaya Route PRN Reason Start Time Stop Time Status Last Admin Dose Admin Acetaminophen (Tylenol) 650 mg Q4H PRN ORAL Temp >100.5 08/17/20 19:45 09/16/20 19:44 Albuterol/ Ipratropium (Combivent Respimat) 1 puff Q4H PRN INH Shortness of Breath 08/18/20 13:00 09/17/20 12:59 Apixaban (Eliquis) 5 mg BID ORAL 08/18/20 18:00 11/16/20 17:59 08/22/20 18:06 Azithromycin 250 mg/Dextrose 275 ml @ 275 mls/hr Q24HRS IV 08/19/20 10:00 08/24/20 09:59 08/22/20 11:59 Dexamethasone (Decadron) 6 mg DAILY ORAL 08/18/20 09:00 08/26/20 12:00 08/22/20 09:32 Dextrose (Dextrose 50%) 25 ml Q30M PRN IV Hypoglycemia 08/18/20 11:45 11/16/20 11:44 Dextrose (Dextrose 50%) 50 ml Q30M PRN IV Hypoglycemia 08/18/20 11:45 11/16/20 11:44 Diazepam (Valium) 5 mg HSPRN PRN ORAL For Anxiety 08/17/20 19:45 08/24/20 19:44 08/22/20 23:33 Ertapenem 1 gm/ Sodium Chloride 55 ml @ 110 mls/hr Q24H IV 08/20/20 09:00 08/25/20 08:59 08/22/20 09:31 Insulin Aspart (NovoLOG) BEFORE MEALS AND HS SUBQ 08/18/20 16:30 11/16/20 16:29 08/23/20 07:13 Ondansetron HCl (Zofran) 4 mg Q6H PRN IVP Nausea & Vomiting 08/17/20 19:45 09/16/20 19:44 Pantoprazole (Protonix) 40 mg DAILY ORAL 08/18/20 09:00 09/17/20 08:59 08/22/20 09:31 Polyethylene Glycol (Miralax) 17 gm DAILYPRN PRN ORAL Constipation 08/17/20 19:45 09/16/20 19:44 08/19/20 17:56 Promethazine HCl/ Codeine (Phenergan with Codeine) 5 ml Q6H PRN ORAL cough 08/17/20 19:45 09/16/20 19:44 Remdesivir 100 mg/ Sodium Chloride 250 ml @ 250 mls/hr Q24H IV 08/20/20 15:00 08/23/20 15:59 08/22/20 15:48 Sodium Chloride 1,000 ml @ 50 mls/hr Q20H IV 08/18/20 18:30 09/17/20 18:29 08/22/20 23:33 Tamsulosin HCl (Flomax) 0.4 mg BID ORAL 08/18/20 09:00 09/17/20 08:59 08/22/20 18:06 Aneta Nguyen M.D. Aug 23, 2020 08:07
[2020-08-23] MEDS: Ertapenem 1 GM in NS 55 ML IV SCH (09:14)
[2020-08-23] MEDS: Eliquis 5mg tablet ORAL SCH ×2 (09:15→18:40)
[2020-08-23] MEDS: Tamsulosin 0.4mg cap ORAL SCH ×2 (09:15→18:40)
--- NOTE | 2020-08-23 09:30 | NUR ---
ASE MANAGEMENT:REVIEW 08/23/20 SI: COVID INFECTION. HYPOXIA 98.9 75 20 110/57 92% ON 5L/NC WBC+12.7 BUN+35 IS: IV REMDESIVIR Q24 (01/08) IV ERTAPENEM Q24 IV AZITHROMYCIN Q24 IVF@50/HR DECADRON PO QD ELIQUIS PO BID : TELEMETRY STATUS DCP: FROM [facility] PLAN: TITRATE OXYGEN SAT 92%
--- NOTE | 2020-08-23 11:18 | Pulmonology Progress Note ---
Subjective ROS Limited/Unobtainable: Yes Constitutional: Reports: no symptoms HEENT: Repors: no symptoms Allergies: Coded Allergies: No Known Allergies (Unverified , 01/04/19) All Systems: reviewed and negative except above Objective Last 24 Hour Vital Signs Date Time Temp Pulse Resp B/P (MAP) Pulse Ox O2 Delivery O2 Flow Rate FiO2 08/23/20 08:00 97.0 59 20 115/65 (82) 93 08/23/20 04:00 77 08/23/20 04:00 98.9 75 20 110/57 (74) 92 08/23/20 00:00 73 08/23/20 00:00 96.0 77 20 112/61 (78) 93 08/22/20 21:00 Nasal Cannula 5.0 08/22/20 20:00 70 08/22/20 20:00 96.8 71 21 135/66 (89) 92 08/22/20 16:00 96.5 83 20 132/59 (83) 92 08/22/20 16:00 52 08/22/20 12:00 96.1 84 20 131/65 (87) 91 08/22/20 12:00 60 Intake and Output 08/22/20 08/23/20 19:00 07:00 Intake Total 720 ml 360 ml Output Total 300 ml Balance 720 ml 60 ml Intake Oral 720 ml Other 360 ml Output Urine Total 300 ml # Voids 1 # Bowel Movements 1 General Appearance: WD/WN HEENT: normocephalic, atraumatic Respiratory: chest wall non-tender, lungs clear Cardiovascular: normal peripheral pulses, regular rhythm Abdomen: normal bowel sounds, soft, non tender Genitourinary: normal external genitalia Extremities: no clubbing Neurologic: survey superintendent II-XII grossly normal Lymphatic: no neck adenopathy Laboratory Tests 08/22/20 11:45: POC Whole Blood Glucose 139H 08/23/20 06:05: White Blood Count 12.7#H, Red Blood Count 5.55, Hemoglobin 14.9, Hematocrit 43.9, Mean Corpuscular Volume 79L, Mean Corpuscular Hemoglobin 26.9L, Mean Corpuscular Hemoglobin Concent 34.0, Red Cell Distribution Width 13.5, Platelet Count 254, Mean Platelet Volume 6.7, Neutrophils (%) (Auto) , Lymphocytes (%) (Auto) , Monocytes (%) (Auto) , Eosinophils (%) (Auto) , Basophils (%) (Auto) , Differential Total Cells Counted 100, Neutrophils % (Manual) 91H, Lymphocytes % (Manual) 3L, Monocytes % (Manual) 6, Eosinophils % (Manual) 0, Basophils % (Manual) 0, Band Neutrophils 0, Platelet Estimate Adequate, Platelet Morphology Normal, Red Blood Cell Morphology Normal, Sodium Level 143, Potassium Level 4.8, Chloride Level 113H, Carbon Dioxide Level 24, Anion Gap 6, Blood Urea Nitrogen 35H, Creatinine 1.1, Estimat Glomerular Filtration Rate > 60, Glucose Level 155H , Calcium Level 9.0, Phosphorus Level 3.3, Magnesium Level 2.1, Total Bilirubin 0.3, Direct Bilirubin 0.2, Aspartate Amino Transf (AST/SGOT) 18, Alanine Aminotransferase (ALT/SGPT) 14, Alkaline Phosphatase 81, Total Protein 6.0L, Albumin 2.1L, Globulin 3.9, Albumin/Globulin Ratio 0.5L Current Medications Medications (Trade) Dose Ordered Sig/Amaya Route PRN Reason Start Time Stop Time Status Last Admin Dose Admin Acetaminophen (Tylenol) 650 mg Q4H PRN ORAL Temp >100.5 08/17/20 19:45 09/16/20 19:44 Albuterol/ Ipratropium (Combivent Respimat) 1 puff Q4H PRN INH Shortness of Breath 08/18/20 13:00 09/17/20 12:59 Apixaban (Eliquis) 5 mg BID ORAL 08/18/20 18:00 11/16/20 17:59 08/23/20 09:15 Dexamethasone (Decadron) 6 mg DAILY ORAL 08/18/20 09:00 08/26/20 12:00 08/23/20 09:15 Dextrose (Dextrose 50%) 25 ml Q30M PRN IV Hypoglycemia 08/18/20 11:45 11/16/20 11:44 Dextrose (Dextrose 50%) 50 ml Q30M PRN IV Hypoglycemia 08/18/20 11:45 11/16/20 11:44 Diazepam (Valium) 5 mg HSPRN PRN ORAL For Anxiety 08/17/20 19:45 08/24/20 19:44 08/22/20 23:33 Ertapenem 1 gm/ Sodium Chloride 55 ml @ 110 mls/hr Q24H IV 08/20/20 09:00 08/25/20 08:59 08/23/20 09:14 Insulin Aspart (NovoLOG) BEFORE MEALS AND HS SUBQ 08/18/20 16:30 11/16/20 16:29 08/23/20 07:13 Ondansetron HCl (Zofran) 4 mg Q6H PRN IVP Nausea & Vomiting 08/17/20 19:45 09/16/20 19:44 Pantoprazole (Protonix) 40 mg DAILY ORAL 08/18/20 09:00 09/17/20 08:59 08/23/20 09:15 Polyethylene Glycol (Miralax) 17 gm DAILYPRN PRN ORAL Constipation 08/17/20 19:45 09/16/20 19:44 08/19/20 17:56 Promethazine HCl/ Codeine (Phenergan with Codeine) 5 ml Q6H PRN ORAL cough 08/17/20 19:45 09/16/20 19:44 Remdesivir 100 mg/ Sodium Chloride 250 ml @ 250 mls/hr Q24H IV 08/20/20 15:00 08/23/20 15:59 08/22/20 15:48 Sodium Chloride 1,000 ml @ 50 mls/hr Q20H IV 08/18/20 18:30 09/17/20 18:29 08/22/20 23:33 Tamsulosin HCl (Flomax) 0.4 mg BID ORAL 08/18/20 09:00 09/17/20 08:59 08/23/20 09:15 Assessment/Plan Problems: (1) Nosocomial pneumonia (2) Hypoxia (3) 2019 novel coronavirus detected (4) CVA, old, hemiparesis (5) Hypertension (6) Diabetes mellitus (7) BPH (benign prostatic hyperplasia) Assessment/Plan cxr from 08/22: New or markedly worsened bilateral infiltrates, since prior exam of 5 days earlier no new complains CRP is lower to 15 (08/22) no fever all reviewed doing better respiratory isolation steroids and Remdesevir titrate fio2 to sat of 92% iv abx check inflammatory markers sliding scale diabetic diet repeat CXR pending Angelita Alarcon MD Aug 23, 2020 11:18
[2020-08-23 12:00] VITALS: BP 121/61
--- NOTE | 2020-08-23 12:39 | NUR ---
RD ASSESSMENT & RECOMMENDATIONS SEE CARE ACTIVITY FOR COMPLETE ASSESSMENT DAILY ESTIMATED NEEDS: Needs based on DM, pulmonary 74kg 25-30 kcals/kg 5547-3311 total kcals 1-1.5 g protein/kg 74-111 g total protein 20-25 mL/kg 0864-1425 total fluid mLs NUTRITION DIAGNOSIS: Altered nutrition related lab values r/t hyperglycemia as evidenced by A1C 6.1, BG 149-155, elevated POC (166-182). CURRENT DIET: Cardiac soft easy chew PO DIET RECOMMENDATIONS: CCHO MED / LOW NA ADDITIONAL RECOMMENDATIONS: 1) Maintain daily calibrated bed scale wts 2) Diet recs as above 3) Monitor for need for texture modifications (currently on soft easy chew) 4) Snacks as tolerated w/ current variable po intake .
--- NOTE | 2020-08-23 12:52 | Nephrology Progress Note ---
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 Labs reviewed. Renal parameters are stable. Continue per consultants. August 22: Status quo. Stable renal parameters. Continue per consultants. August 21: Labs were reviewed. Renal parameters are stable. Continue per consultants. August 20: Labs reviewed. Creatinine now normalized. Electrolytes within normal limit. Continue per consultants. Antibiotics Slow hydrate with normal saline Monitor renal parameters Keep the blood pressure blood sugar in check Per orders Subjective ROS Limited/Unobtainable: No Constitutional: Reports: malaise Objective Objective Last 24 Hour Vital Signs Date Time Temp Pulse Resp B/P (MAP) Pulse Ox O2 Delivery O2 Flow Rate FiO2 08/23/20 08:00 97.0 59 20 115/65 (82) 93 08/23/20 08:00 61 08/23/20 04:00 77 08/23/20 04:00 98.9 75 20 110/57 (74) 92 08/23/20 00:00 73 08/23/20 00:00 96.0 77 20 112/61 (78) 93 08/22/20 21:00 Nasal Cannula 5.0 08/22/20 20:00 70 08/22/20 20:00 96.8 71 21 135/66 (89) 92 08/22/20 16:00 96.5 83 20 132/59 (83) 92 08/22/20 16:00 52 Intake and Output 08/22/20 08/23/20 19:00 07:00 Intake Total 720 ml 360 ml Output Total 300 ml Balance 720 ml 60 ml Intake Oral 720 ml Other 360 ml Output Urine Total 300 ml # Voids 1 # Bowel Movements 1 Current Medications Medications (Trade) Dose Ordered Sig/Amaya Route PRN Reason Start Time Stop Time Status Last Admin Dose Admin Acetaminophen (Tylenol) 650 mg Q4H PRN ORAL Temp >100.5 08/17/20 19:45 09/16/20 19:44 Albuterol/ Ipratropium (Combivent Respimat) 1 puff Q4H PRN INH Shortness of Breath 08/18/20 13:00 09/17/20 12:59 Apixaban (Eliquis) 5 mg BID ORAL 08/18/20 18:00 11/16/20 17:59 08/23/20 09:15 Dexamethasone (Decadron) 6 mg DAILY ORAL 08/18/20 09:00 08/26/20 12:00 08/23/20 09:15 Dextrose (Dextrose 50%) 25 ml Q30M PRN IV Hypoglycemia 08/18/20 11:45 11/16/20 11:44 Dextrose (Dextrose 50%) 50 ml Q30M PRN IV Hypoglycemia 08/18/20 11:45 11/16/20 11:44 Diazepam (Valium) 5 mg HSPRN PRN ORAL For Anxiety 08/17/20 19:45 08/24/20 19:44 08/22/20 23:33 Ertapenem 1 gm/ Sodium Chloride 55 ml @ 110 mls/hr Q24H IV 08/20/20 09:00 08/25/20 08:59 08/23/20 09:14 Insulin Aspart (NovoLOG) BEFORE MEALS AND HS SUBQ 08/18/20 16:30 11/16/20 16:29 08/23/20 12:01 Ondansetron HCl (Zofran) 4 mg Q6H PRN IVP Nausea & Vomiting 08/17/20 19:45 09/16/20 19:44 Pantoprazole (Protonix) 40 mg DAILY ORAL 08/18/20 09:00 09/17/20 08:59 08/23/20 09:15 Polyethylene Glycol (Miralax) 17 gm DAILYPRN PRN ORAL Constipation 08/17/20 19:45 09/16/20 19:44 08/19/20 17:56 Promethazine HCl/ Codeine (Phenergan with Codeine) 5 ml Q6H PRN ORAL cough 08/17/20 19:45 09/16/20 19:44 Remdesivir 100 mg/ Sodium Chloride 250 ml @ 250 mls/hr Q24H IV 08/20/20 15:00 08/23/20 15:59 08/22/20 15:48 Sodium Chloride 1,000 ml @ 50 mls/hr Q20H IV 08/18/20 18:30 09/17/20 18:29 08/22/20 23:33 Tamsulosin HCl (Flomax) 0.4 mg BID ORAL 08/18/20 09:00 09/17/20 08:59 08/23/20 09:15 Laboratory Tests 08/23/20 06:05: White Blood Count 12.7#H, Red Blood Count 5.55, Hemoglobin 14.9, Hematocrit 43.9, Mean Corpuscular Volume 79L, Mean Corpuscular Hemoglobin 26.9L, Mean Corpuscular Hemoglobin Concent 34.0, Red Cell Distribution Width 13.5, Platelet Count 254, Mean Platelet Volume 6.7, Neutrophils (%) (Auto) , Lymphocytes (%) (Auto) , Monocytes (%) (Auto) , Eosinophils (%) (Auto) , Basophils (%) (Auto) , Differential Total Cells Counted 100, Neutrophils % (Manual) 91H, Lymphocytes % (Manual) 3L, Monocytes % (Manual) 6, Eosinophils % (Manual) 0, Basophils % (Manual) 0, Band Neutrophils 0, Platelet Estimate Adequate, Platelet Morphology Normal, Red Blood Cell Morphology Normal, Sodium Level 143, Potassium Level 4.8, Chloride Level 113H, Carbon Dioxide Level 24, Anion Gap 6, Blood Urea Nitrogen 35H, Creatinine 1.1, Estimat Glomerular Filtration Rate > 60, Glucose Level 155H , Calcium Level 9.0, Phosphorus Level 3.3, Magnesium Level 2.1, Total Bilirubin 0.3, Direct Bilirubin 0.2, Aspartate Amino Transf (AST/SGOT) 18, Alanine Aminotransferase (ALT/SGPT) 14, Alkaline Phosphatase 81, Total Protein 6.0L, Albumin 2.1L, Globulin 3.9, Albumin/Globulin Ratio 0.5L Height (Feet): 5 Height (Inches): 8.00 Weight (Pounds): 163 General Appearance: no apparent distress, lethargic Cardiovascular: normal rate Respiratory/Chest: decreased breath sounds Abdomen: distended Devonte Zuniga MD Aug 23, 2020 12:52
--- NOTE | 2020-08-23 13:58 | Cardiac Electrophysiology PN ---
Assessment/Plan Assessment/Plan 1. COVID-19 pneumonia. S/P Remdesevir, ceftriaxone, albuterol, dexamethasone and apixaban. On 4 liter NC 2. Hypertension. Stable off antihypertensive agents. 3. Diabetes. 4. History of CVA with hemiparesis. 5. Benign prostatic hypertrophy. 6. Sinus tach due to Covid DW RN Subjective Subjective Alert in NAD on 4 liter Nasal Cannula in Covid isolation Objective Last 24 Hour Vital Signs Date Time Temp Pulse Resp B/P (MAP) Pulse Ox O2 Delivery O2 Flow Rate FiO2 08/23/20 08:00 97.0 59 20 115/65 (82) 93 08/23/20 08:00 61 08/23/20 04:00 77 08/23/20 04:00 98.9 75 20 110/57 (74) 92 08/23/20 00:00 73 08/23/20 00:00 96.0 77 20 112/61 (78) 93 08/22/20 21:00 Nasal Cannula 5.0 08/22/20 20:00 70 08/22/20 20:00 96.8 71 21 135/66 (89) 92 08/22/20 16:00 96.5 83 20 132/59 (83) 92 08/22/20 16:00 52 Intake and Output 08/22/20 08/23/20 19:00 07:00 Intake Total 720 ml 360 ml Output Total 300 ml Balance 720 ml 60 ml Intake Oral 720 ml Other 360 ml Output Urine Total 300 ml # Voids 1 # Bowel Movements 1 Laboratory Tests Test 08/23/20 06:05 White Blood Count 12.7 K/UL (4.8-10.8) #H Red Blood Count 5.55 M/UL (4.70-6.10) Hemoglobin 14.9 G/DL (14.2-18.0) Hematocrit 43.9 % (42.0-52.0) Mean Corpuscular Volume 79 FL (80-99) L Mean Corpuscular Hemoglobin 26.9 PG (27.0-31.0) L Mean Corpuscular Hemoglobin Concent 34.0 G/DL (32.0-36.0) Red Cell Distribution Width 13.5 % (11.6-14.8) Platelet Count 254 K/UL (150-450) Mean Platelet Volume 6.7 FL (6.5-10.1) Neutrophils (%) (Auto) % (45.0-75.0) Lymphocytes (%) (Auto) % (20.0-45.0) Monocytes (%) (Auto) % (1.0-10.0) Eosinophils (%) (Auto) % (0.0-3.0) Basophils (%) (Auto) % (0.0-2.0) Differential Total Cells Counted 100 Neutrophils % (Manual) 91 % (45-75) H Lymphocytes % (Manual) 3 % (20-45) L Monocytes % (Manual) 6 % (1-10) Eosinophils % (Manual) 0 % (0-3) Basophils % (Manual) 0 % (0-2) Band Neutrophils 0 % (0-8) Platelet Estimate Adequate Platelet Morphology Normal Red Blood Cell Morphology Normal Sodium Level 143 MMOL/L (136-145) Potassium Level 4.8 MMOL/L (3.5-5.1) Chloride Level 113 MMOL/L (98-107) H Carbon Dioxide Level 24 MMOL/L (21-32) Anion Gap 6 mmol/L (5-15) Blood Urea Nitrogen 35 mg/dL (7-18) H Creatinine 1.1 MG/DL (0.55-1.30) Estimat Glomerular Filtration Rate > 60 mL/min (>60) Glucose Level 155 MG/DL (74-106) H Calcium Level 9.0 MG/DL (8.5-10.1) Phosphorus Level 3.3 MG/DL (2.5-4.9) Magnesium Level 2.1 MG/DL (1.8-2.4) Total Bilirubin 0.3 MG/DL (0.2-1.0) Direct Bilirubin 0.2 MG/DL (0.0-0.3) Aspartate Amino Transf (AST/SGOT) 18 U/L (15-37) Alanine Aminotransferase (ALT/SGPT) 14 U/L (12-78) Alkaline Phosphatase 81 U/L (46-116) Total Protein 6.0 G/DL (6.4-8.2) L Albumin 2.1 G/DL (3.4-5.0) L Globulin 3.9 g/dL Albumin/Globulin Ratio 0.5 (1.0-2.7) L Objective HEAD AND NECK: no JVD. LUNGS: Coarse rhonchi. CARDIOVASCULAR: Regular S1 and S2 with no gallop or murmur. ABDOMEN: Soft. EXTREMITIES: No pitting edema. Sabino Goncalves MD Aug 23, 2020 13:58
[2020-08-23] MEDS: Maintenance Dose:Remdesivir 100mg/NS 230ml x 4 Doses IV SCH ×2 (15:55)
[2020-08-23 16:00] VITALS: BP 113/63
--- NOTE | 2020-08-23 16:05 | NUR ---
NURSE NOTES: Patient is refusing insulin shot despite education provided. BGL is 158.
--- NOTE | 2020-08-23 19:13 | NUR ---
NURSE HAND-OFF REPORT: Important Events on Shift: Patient Status: full code, stable condition Diet: cardiac Pending Orders: [] Pending Results/Labs:[] Pending MD notification:[] Latest Vital Signs: Temperature 96.9 , Pulse 70 , B/P 113 /63 , Respiratory Rate 20 , O2 SAT 95 , Nasal Cannula, O2 Flow Rate 5.0 . Vital Sign Comment: [] EKG Rhythm: Sinus Rhythm Rhythm change?: N MD Notified?: N -Dr. Sacha GLASS Response: Message left await call Latest Wong Fall Score: 40 Fall Risk: Medium Risk Safety Measures: Call light Within Reach, Bed Alarm Zone 1, Side Rails Side Rails x2, Bed position Low and Locked. Fall Precautions: Yellow Socks Yellow Gown Patient Fall Education Report given to BRYAN Dupont.
--- NOTE | 2020-08-23 19:20 | NUR ---
NURSE NOTES: Patient received from BRYAN Martinez. Patient is awake, alert and oriented x 4. Patient has a nasal cannula at 5 L with no signs of acute respiratory distress noted. Patient has an IV 20 gauge on his right hand, swelling noted, no IV fluids running will try to insert new IV. Patient's phone noted to be on patient's bed. Patient has no complaints as of the moment. Bed is in the lowest position and locked, call light within reach. Will continue to monitor.
[2020-08-23 20:00] VITALS: BP 125/56
--- NOTE | 2020-08-23 21:27 | General Progress Note ---
Subjective ROS Limited/Unobtainable: Yes Allergies: Coded Allergies: No Known Allergies (Unverified , 01/04/19) Objective Last 24 Hour Vital Signs Date Time Temp Pulse Resp B/P (MAP) Pulse Ox O2 Delivery O2 Flow Rate FiO2 08/23/20 16:00 96.9 57 20 113/63 (80) 95 08/23/20 16:00 70 08/23/20 12:00 66 08/23/20 12:00 97.1 62 18 121/61 (81) 94 08/23/20 09:00 Nasal Cannula 5.0 08/23/20 08:00 97.0 59 20 115/65 (82) 93 08/23/20 08:00 61 08/23/20 04:00 77 08/23/20 04:00 98.9 75 20 110/57 (74) 92 08/23/20 00:00 73 08/23/20 00:00 96.0 77 20 112/61 (78) 93 Intake and Output 08/22/20 08/23/20 19:00 07:00 Intake Total 720 ml 360 ml Output Total 300 ml Balance 720 ml 60 ml Intake Oral 720 ml Other 360 ml Output Urine Total 300 ml # Voids 1 # Bowel Movements 1 Laboratory Tests 08/23/20 06:05: White Blood Count 12.7#H, Red Blood Count 5.55, Hemoglobin 14.9, Hematocrit 43.9, Mean Corpuscular Volume 79L, Mean Corpuscular Hemoglobin 26.9L, Mean Corpuscular Hemoglobin Concent 34.0, Red Cell Distribution Width 13.5, Platelet Count 254, Mean Platelet Volume 6.7, Neutrophils (%) (Auto) , Lymphocytes (%) (Auto) , Monocytes (%) (Auto) , Eosinophils (%) (Auto) , Basophils (%) (Auto) , Differential Total Cells Counted 100, Neutrophils % (Manual) 91H, Lymphocytes % (Manual) 3L, Monocytes % (Manual) 6, Eosinophils % (Manual) 0, Basophils % (Manual) 0, Band Neutrophils 0, Platelet Estimate Adequate, Platelet Morphology Normal, Red Blood Cell Morphology Normal, Sodium Level 143, Potassium Level 4.8, Chloride Level 113H, Carbon Dioxide Level 24, Anion Gap 6, Blood Urea Nitrogen 35H, Creatinine 1.1, Estimat Glomerular Filtration Rate > 60, Glucose Level 155H , Calcium Level 9.0, Phosphorus Level 3.3, Magnesium Level 2.1, Total Bilirubin 0.3, Direct Bilirubin 0.2, Aspartate Amino Transf (AST/SGOT) 18, Alanine Aminotransferase (ALT/SGPT) 14, Alkaline Phosphatase 81, Total Protein 6.0L, Albumin 2.1L, Globulin 3.9, Albumin/Globulin Ratio 0.5L 08/23/20 20:27: POC Whole Blood Glucose 186H Height (Feet): 5 Height (Inches): 8.00 Weight (Pounds): 163 Assessment/Plan Problem List: (1) Renal failure (ARF), acute on chronic ICD Codes: N17.9 - Acute kidney failure, unspecified; N18.9 - Chronic kidney disease, unspecified SNOMED: 908501085 (2) Diabetes mellitus ICD Codes: E11.9 - Type 2 diabetes mellitus without complications SNOMED: 72127208 (3) Sepsis due to urinary tract infection ICD Codes: A41.9 - Sepsis, unspecified organism; N39.0 - Urinary tract infection, site not specified SNOMED: 671176637 (4) Episode of generalized weakness ICD Codes: R53.1 - Weakness SNOMED: 21345103 (5) Renal failure (ARF), acute on chronic ICD Codes: N17.9 - Acute kidney failure, unspecified; N18.9 - Chronic kidney disease, unspecified SNOMED: 049625998 (6) CVA, old, hemiparesis ICD Codes: I69.359 - Hemiplegia and hemiparesis following cerebral infarction affecting unspecified side SNOMED: 144618379 (7) Hypoxia ICD Codes: R09.02 - Hypoxemia SNOMED: 968026884 (8) 2019 novel coronavirus detected ICD Codes: U07.1 - COVID-19 SNOMED: 4170025919722221 (9) BPH (benign prostatic hyperplasia) ICD Codes: N40.0 - Benign prostatic hyperplasia without lower urinary tract symptoms SNOMED: 178944265 Status: progressing, unchanged Assessment/Plan: covid + resp insuff no fever no change azotmia improving sepsis Jose David Headley MD Aug 23, 2020 21:27
[2020-08-24] VITALS: BP 124/51
[2020-08-24 04:00] VITALS: BP 135/57
[2020-08-24] MEDS: NovoLOG Insulin Flexpen SUBQ SCH ×4 (06:59→20:56)
--- NOTE | 2020-08-24 07:15 | NUR ---
NURSE HAND-OFF REPORT: Important Events on Shift:[] Patient Status: [Stable] Diet: [Cardiac diet] Pending Orders: [] Pending Results/Labs:[] Pending MD notification:[] Latest Vital Signs: Temperature 96.2 , Pulse 44 , B/P 135 /57 , Respiratory Rate 20 , O2 SAT 92 , Nasal Cannula, O2 Flow Rate 5.0 . Vital Sign Comment: [] EKG Rhythm: SB w/ PAC Rhythm change?: N MD Notified?: N -Dr. Sacha GLASS Response: Message left await call Latest Wong Fall Score: 40 Fall Risk: Medium Risk Safety Measures: Call light Within Reach, Bed Alarm Zone 1, Side Rails Side Rails x2, Bed position Low and Locked. Fall Precautions: Yellow Socks Yellow Gown Patient Fall Education Report given to [BRYAN Martinez].
--- NOTE | 2020-08-24 07:19 | NUR ---
NURSE NOTES: Received hand-off report from Cresencio David RN. Patient in bed, stable condition, breathing even and unlabored on nasal cannula 5L. Will call RT to titrate patient's oxygen. uniform room attendant in place, bed in lowest and locked position, bed alarm on, side rails upx2, alert and oriented x4.
--- NOTE | 2020-08-24 07:24 | Pulmonology Progress Note ---
Subjective ROS Limited/Unobtainable: Yes Allergies: Coded Allergies: No Known Allergies (Unverified , 01/04/19) Subjective no fevers, leukocytosis this am remains hypoxic on 5 L o2 via NC CXR 08/22 with worsening BL infiltrates Objective Last 24 Hour Vital Signs Date Time Temp Pulse Resp B/P (MAP) Pulse Ox O2 Delivery O2 Flow Rate FiO2 08/24/20 04:00 44 08/24/20 04:00 96.2 54 20 135/57 (83) 92 08/24/20 00:00 54 08/24/20 00:00 96.8 78 20 124/51 (75) 92 08/23/20 21:00 Nasal Cannula 5.0 08/23/20 20:00 56 08/23/20 20:00 96.1 74 20 125/56 (79) 93 08/23/20 16:00 96.9 57 20 113/63 (80) 95 08/23/20 16:00 70 08/23/20 12:00 66 08/23/20 12:00 97.1 62 18 121/61 (81) 94 08/23/20 09:00 Nasal Cannula 5.0 08/23/20 08:00 97.0 59 20 115/65 (82) 93 08/23/20 08:00 61 Intake and Output 08/23/20 08/24/20 19:00 07:00 Intake Total 360 ml Balance 360 ml Intake Oral 360 ml # Voids 3 # Bowel Movements 1 General Appearance: WD/WN HEENT: normocephalic, atraumatic, other - O2 4 L via NC Respiratory: chest wall non-tender, rhonchi - bilaterally - scattered Cardiovascular: normal peripheral pulses, normal rate, regular rhythm Abdomen: normal bowel sounds, soft, non tender Genitourinary: normal external genitalia Extremities: no clubbing Neurologic: alert, responsive, other - R side paresis Musculoskeletal: atrophy - BLE Laboratory Tests 08/23/20 20:27: POC Whole Blood Glucose 186H 08/24/20 05:34: POC Whole Blood Glucose [Pending] Current Medications Medications (Trade) Dose Ordered Sig/Amaya Route PRN Reason Start Time Stop Time Status Last Admin Dose Admin Acetaminophen (Tylenol) 650 mg Q4H PRN ORAL Temp >100.5 08/17/20 19:45 09/16/20 19:44 Albuterol/ Ipratropium (Combivent Respimat) 1 puff Q4H PRN INH Shortness of Breath 08/18/20 13:00 09/17/20 12:59 Apixaban (Eliquis) 5 mg BID ORAL 08/18/20 18:00 11/16/20 17:59 08/23/20 18:40 Dexamethasone (Decadron) 6 mg DAILY ORAL 08/18/20 09:00 08/26/20 12:00 08/23/20 09:15 Dextrose (Dextrose 50%) 25 ml Q30M PRN IV Hypoglycemia 08/18/20 11:45 11/16/20 11:44 Dextrose (Dextrose 50%) 50 ml Q30M PRN IV Hypoglycemia 08/18/20 11:45 11/16/20 11:44 Diazepam (Valium) 5 mg HSPRN PRN ORAL For Anxiety 08/17/20 19:45 08/24/20 19:44 08/22/20 23:33 Ertapenem 1 gm/ Sodium Chloride 55 ml @ 110 mls/hr Q24H IV 08/20/20 09:00 08/25/20 08:59 08/23/20 09:14 Insulin Aspart (NovoLOG) BEFORE MEALS AND HS SUBQ 08/18/20 16:30 11/16/20 16:29 08/24/20 06:59 Ondansetron HCl (Zofran) 4 mg Q6H PRN IVP Nausea & Vomiting 08/17/20 19:45 09/16/20 19:44 Pantoprazole (Protonix) 40 mg DAILY ORAL 08/18/20 09:00 09/17/20 08:59 08/23/20 09:15 Polyethylene Glycol (Miralax) 17 gm DAILYPRN PRN ORAL Constipation 08/17/20 19:45 09/16/20 19:44 08/19/20 17:56 Promethazine HCl/ Codeine (Phenergan with Codeine) 5 ml Q6H PRN ORAL cough 08/17/20 19:45 09/16/20 19:44 Sodium Chloride 1,000 ml @ 50 mls/hr Q20H IV 08/18/20 18:30 09/17/20 18:29 08/23/20 18:40 Tamsulosin HCl (Flomax) 0.4 mg BID ORAL 08/18/20 09:00 09/17/20 08:59 08/23/20 18:40 Assessment/Plan Assessment/Plan ASSESSMENT COVID-19 pneumonia Acute hypoxemic respiratory failure CATHERINE due to dehydration probably on CKD E. coli ESBL UTI HTN DM BPH Hx of CVA with R sided hemiparesis PLAN OF CARE tele supplemental O2, titrate to keep pulse ox above 90% pulmonary toilet s/p remdesivir x 5 days continue steroids for total of 10 days a/c with Eliquis a/tussive prn f/up with CXR trend inflammatory markers GI prophylaxis CATEHRINE- resolved , likely was due to dehydration renal YS noted abx for UTI -> completed BP stable ; off anti/HTN at this time BS management with SSI continue Flomax supportive care case discussed and evaluated by supervising physician Krystal Sherman NP Aug 24, 2020 07:24
--- NOTE | 2020-08-24 07:29 | Infectious Diseases Prog Note ---
Assessment/Plan 84yo M with: Afebrile Normal WBC Lymphopenia COVID pneumonia, severe Acute hypoxic resp failure 2/2 COVID pna UTI/cystitis 08/17 BCx NTD UCx +ESBL E.coli CXR: No significant change in tortuosity/ectasia of the thoracic aorta. Negative for cardiac enlargement. Negative for focal consolidation, pneumothorax or pleural fluid collections. COVID rapid test positive, PCR positive 08/22 CXR: New or markedly worsened bilateral infiltrates, since prior exam of 5 days earlier Cr 1.8, improving 08/19 Renal US: Negative for hydronephrosis. 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 Bilateral renal cysts, large on the right. Plan: Stop RDV #5/5 given improved CATHERINE Stop ertapenem #5/5 for UTI Cont dexamethasone 6mg daily #03/15 08/24 SP RDV #5, ertapenem #5 for UTI 08/23 SP Azithro #5 Convalescent plasma unfortunately not available at this institution so unable to give, additionally unclear if it improves mortality/outcomes or not Monitor CBC/CMP Monitor temp curve, hemodynamics Monitor resp status D/w RN Thank you for this consult. [facility] will continue to follow. Subjective Allergies: Coded Allergies: No Known Allergies (Unverified , 01/04/19) AF NAD on 5L NC No new WBC, 12 yesterday Feels that breathing is overall stable Objective Last 24 Hour Vital Signs Date Time Temp Pulse Resp B/P (MAP) Pulse Ox O2 Delivery O2 Flow Rate FiO2 08/24/20 04:00 44 08/24/20 04:00 96.2 54 20 135/57 (83) 92 08/24/20 00:00 54 08/24/20 00:00 96.8 78 20 124/51 (75) 92 08/23/20 21:00 Nasal Cannula 5.0 08/23/20 20:00 56 08/23/20 20:00 96.1 74 20 125/56 (79) 93 08/23/20 16:00 96.9 57 20 113/63 (80) 95 08/23/20 16:00 70 08/23/20 12:00 66 08/23/20 12:00 97.1 62 18 121/61 (81) 94 08/23/20 09:00 Nasal Cannula 5.0 08/23/20 08:00 97.0 59 20 115/65 (82) 93 08/23/20 08:00 61 Height (Feet): 5 Height (Inches): 8.00 Weight (Pounds): 163 Gen: NAD HEENT: NCAT Pulm: BL chest rise Abd: Non-distended Ext: No c/c/e Skin: No visible rashes Neuro: Awake, interactive Laboratory Tests Test 08/23/20 20:27 08/24/20 05:34 POC Whole Blood Glucose 186 MG/DL (74-106) H Pending Current Medications Medications (Trade) Dose Ordered Sig/Amaya Route PRN Reason Start Time Stop Time Status Last Admin Dose Admin Acetaminophen (Tylenol) 650 mg Q4H PRN ORAL Temp >100.5 08/17/20 19:45 09/16/20 19:44 Albuterol/ Ipratropium (Combivent Respimat) 1 puff Q4H PRN INH Shortness of Breath 08/18/20 13:00 09/17/20 12:59 Apixaban (Eliquis) 5 mg BID ORAL 08/18/20 18:00 11/16/20 17:59 08/23/20 18:40 Dexamethasone (Decadron) 6 mg DAILY ORAL 08/18/20 09:00 08/26/20 12:00 08/23/20 09:15 Dextrose (Dextrose 50%) 25 ml Q30M PRN IV Hypoglycemia 08/18/20 11:45 11/16/20 11:44 Dextrose (Dextrose 50%) 50 ml Q30M PRN IV Hypoglycemia 08/18/20 11:45 11/16/20 11:44 Diazepam (Valium) 5 mg HSPRN PRN ORAL For Anxiety 08/17/20 19:45 08/24/20 19:44 08/22/20 23:33 Ertapenem 1 gm/ Sodium Chloride 55 ml @ 110 mls/hr Q24H IV 08/20/20 09:00 08/25/20 08:59 08/23/20 09:14 Insulin Aspart (NovoLOG) BEFORE MEALS AND HS SUBQ 08/18/20 16:30 11/16/20 16:29 08/24/20 06:59 Ondansetron HCl (Zofran) 4 mg Q6H PRN IVP Nausea & Vomiting 08/17/20 19:45 09/16/20 19:44 Pantoprazole (Protonix) 40 mg DAILY ORAL 08/18/20 09:00 09/17/20 08:59 08/23/20 09:15 Polyethylene Glycol (Miralax) 17 gm DAILYPRN PRN ORAL Constipation 08/17/20 19:45 09/16/20 19:44 08/19/20 17:56 Promethazine HCl/ Codeine (Phenergan with Codeine) 5 ml Q6H PRN ORAL cough 08/17/20 19:45 09/16/20 19:44 Sodium Chloride 1,000 ml @ 50 mls/hr Q20H IV 08/18/20 18:30 09/17/20 18:29 08/23/20 18:40 Tamsulosin HCl (Flomax) 0.4 mg BID ORAL 08/18/20 09:00 09/17/20 08:59 08/23/20 18:40 Aneta Nguyen M.D. Aug 24, 2020 07:28
[2020-08-24 08:00] VITALS: BP 138/61
[2020-08-24] MEDS: Tamsulosin 0.4mg cap ORAL SCH ×2 (08:25→17:03)
[2020-08-24] MEDS: Eliquis 5mg tablet ORAL SCH ×2 (08:25→17:03)
[2020-08-24 12:00] VITALS: BP 117/57
--- NOTE | 2020-08-24 12:52 | NUR ---
NURSE NOTES: Notified Dr. Goncalves of fluctuating spO2 85-93% and cold bilateral arms. Dr. Goncalves ordered to perform an EKG. Noted and will carry out now.
--- NOTE | 2020-08-24 12:57 | NUR ---
NURSE NOTES: Called RT and will be right here shortly.
--- NOTE | 2020-08-24 13:10 | NUR ---
NURSE NOTES: Respiratory Therapist, Dez, put patient on venturi mask, 14L at 55% fiO2. Patient Spo2 is 93% now. Sent picture of EKG to Dr. Goncalves, awaiting response.
--- NOTE | 2020-08-24 13:38 | Nephrology Progress Note ---
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 No labs drawn today. Will check lab tomorrow. August 23: Status quo. Labs reviewed. Renal parameters are stable. Continue per consultants. August 22: Status quo. Stable renal parameters. Continue per consultants. August 21: Labs were reviewed. Renal parameters are stable. Continue per consultants. August 20: Labs reviewed. Creatinine now normalized. Electrolytes within normal limit. Continue per consultants. Antibiotics Slow hydrate with normal saline Monitor renal parameters Keep the blood pressure blood sugar in check Per orders Subjective ROS Limited/Unobtainable: No Objective Objective Last 24 Hour Vital Signs Date Time Temp Pulse Resp B/P (MAP) Pulse Ox O2 Delivery O2 Flow Rate FiO2 08/24/20 12:00 97.3 59 22 117/57 (77) 93 08/24/20 12:00 63 08/24/20 09:00 Nasal Cannula 5.0 08/24/20 08:00 44 08/24/20 08:00 97.0 44 19 138/61 (86) 93 08/24/20 04:00 44 08/24/20 04:00 96.2 54 20 135/57 (83) 92 08/24/20 00:00 54 08/24/20 00:00 96.8 78 20 124/51 (75) 92 08/23/20 21:00 Nasal Cannula 5.0 08/23/20 20:00 56 08/23/20 20:00 96.1 74 20 125/56 (79) 93 08/23/20 16:00 96.9 57 20 113/63 (80) 95 08/23/20 16:00 70 Intake and Output 08/23/20 08/24/20 19:00 07:00 Intake Total 360 ml 240 ml Balance 360 ml 240 ml Intake Oral 360 ml 240 ml # Voids 3 # Bowel Movements 1 1 Laboratory Tests 08/23/20 20:27: POC Whole Blood Glucose 186H 08/24/20 05:34: POC Whole Blood Glucose [Pending] 08/24/20 06:57: POC Whole Blood Glucose [Pending] Height (Feet): 5 Height (Inches): 8.00 Weight (Pounds): 163 General Appearance: no apparent distress Cardiovascular: bradycardia Respiratory/Chest: decreased breath sounds Abdomen: soft Devonte Zuniga MD Aug 24, 2020 13:38
--- NOTE | 2020-08-24 13:48 | NUR ---
NURSE NOTES: Called and left a voicemail for Dr. Goncalves regarding oxygenation and cardiac status. Dr. Goncalves is aware of low spO2 and awaiting potential orders on the EKG i sent.
--- NOTE | 2020-08-24 15:39 | NUR ---
NURSE NOTES: Called Dr. Goncalves from the number on the [facility] physician roster provided on desktop and I told him that the patient HR is fluctuating up and down 45-65, cardiac rhythm shows BBB and PACs, upper extremities are cool to touch, spO2 is 89-92%. Notified RT, Dez. Dr. Goncalves provided no new orders and he stated he will be arriving here shortly.
[2020-08-24 16:00] VITALS: BP 138/62
--- NOTE | 2020-08-24 16:19 | NUR ---
NURSE NOTES: Dr. Goncalves came by in-person and deemed that the problem is highly unlikely due to cardiac problem and to notify the hospice plan administrator. Noted and RT came, patient is now on venturi mask, spO2 92%, heart rate 73bpm.
--- NOTE | 2020-08-24 16:40 | NUR ---
NURSE NOTES: Called and left a voicemail for Dr. Alarcon regarding poor spO2 (88-99%) on venturi mask. Awaiting response/callback.
--- NOTE | 2020-08-24 17:16 | Cardiac Electrophysiology PN ---
Assessment/Plan Assessment/Plan 1. COVID-19 pneumonia. S/P Remdesevir, ceftriaxone, albuterol, dexamethasone and apixaban. On 14 liter VM 2. Hypertension. Stable off antihypertensive agents. 3. Diabetes. 4. History of CVA with hemiparesis. 5. Benign prostatic hypertrophy. 6. Neno with HR high 40s, likely due to Covid DW RN Subjective Subjective Alert in NAD on 14 liter VM in Covid isolation. HR high 40s Objective Last 24 Hour Vital Signs Date Time Temp Pulse Resp B/P (MAP) Pulse Ox O2 Delivery O2 Flow Rate FiO2 08/24/20 16:00 97.7 65 20 138/62 (87) 92 08/24/20 16:00 54 08/24/20 12:00 97.3 59 22 117/57 (77) 93 08/24/20 12:00 63 08/24/20 09:00 Nasal Cannula 5.0 08/24/20 08:00 44 08/24/20 08:00 97.0 44 19 138/61 (86) 93 08/24/20 04:00 44 08/24/20 04:00 96.2 54 20 135/57 (83) 92 08/24/20 00:00 54 08/24/20 00:00 96.8 78 20 124/51 (75) 92 08/23/20 21:00 Nasal Cannula 5.0 08/23/20 20:00 56 08/23/20 20:00 96.1 74 20 125/56 (79) 93 Intake and Output 08/23/20 08/24/20 19:00 07:00 Intake Total 360 ml 240 ml Balance 360 ml 240 ml Intake Oral 360 ml 240 ml # Voids 3 # Bowel Movements 1 1 Laboratory Tests Test 08/23/20 20:27 08/24/20 05:34 08/24/20 06:57 08/24/20 16:54 POC Whole Blood Glucose 186 MG/DL (74-106) H Pending Pending 167 MG/DL (74-106) H Objective HEAD AND NECK: no JVD. LUNGS: Coarse rhonchi. CARDIOVASCULAR: Regular S1 and S2 with no gallop or murmur. ABDOMEN: Soft. EXTREMITIES: No pitting edema. Sabino Goncalves MD Aug 24, 2020 17:16
--- NOTE | 2020-08-24 17:16 | NUR ---
NURSE NOTES: Patient on 6L nasal cannula, eating and tolerating well, spO2 at 92%, breathing even and unlabored.
--- NOTE | 2020-08-24 18:18 | NUR ---
NURSE NOTES: Called respiratory therapist to increase oxygen because patient spO2 currently 87% on venturi mask. Called and left a voicemail on Dr. Alarcon answering machine regarding low sats sPo2 87-92% fluctuation. Patient remains asymptomatic, alert and oriented to baseline (x4), no apparent distress but is having slight SOB, vitals WNL except spO2.
--- NOTE | 2020-08-24 19:25 | NUR ---
NURSE NOTES: RECEIVED REPORT FROM BRYAN ROMERO. PT IN BED AWAKE, A/O X4, ABLE TO MAKE NEEDS KNOWN. ON NON-REBREATHER 15L/MIN SATING 96%. ON LAST TRIMMER. IV ON LEFT FA RUNNING NS AT 50CC/HR. BED IN LOW POSITION & LOCKED. SIDE RAILS UP X3. BED ALARM ON. CALL LIGHT WITH IN REACH. CONTINUE PLAN OF CARE.
--- NOTE | 2020-08-24 19:30 | NUR ---
NURSE HAND-OFF REPORT: Important Events on Shift: nonrebreather 15L, spO2 96% Patient Status: alert and oriented x4, full code, stable condition Diet: cardiac Pending Orders: [] Pending Results/Labs:[] Pending MD notification:[] Latest Vital Signs: Temperature 97.7 , Pulse 65 , B/P 138 /62 , Respiratory Rate 20 , O2 SAT 92 , Nasal Cannula, O2 Flow Rate 5.0 . Vital Sign Comment: [] EKG Rhythm: SB w BBB Rhythm change?: Y Notified?: Y -Dr. Sacha GLASS Response: No New Orders Received Latest Wong Fall Score: 40 Fall Risk: Medium Risk Safety Measures: Call light Within Reach, Bed Alarm Zone 1, Side Rails Side Rails x2, Bed position Low and Locked. Fall Precautions: Yellow Socks Yellow Gown Patient Fall Education Report given to Tiera Wakefield RN.
[2020-08-24 20:00] VITALS: BP 142/61
--- NOTE | 2020-08-24 21:04 | General Progress Note ---
Subjective ROS Limited/Unobtainable: Yes Allergies: Coded Allergies: No Known Allergies (Unverified , 01/04/19) Objective Last 24 Hour Vital Signs Date Time Temp Pulse Resp B/P (MAP) Pulse Ox O2 Delivery O2 Flow Rate FiO2 08/24/20 16:00 97.7 65 20 138/62 (87) 92 08/24/20 16:00 54 08/24/20 12:00 97.3 59 22 117/57 (77) 93 08/24/20 12:00 63 08/24/20 09:00 Nasal Cannula 5.0 08/24/20 08:00 44 08/24/20 08:00 97.0 44 19 138/61 (86) 93 08/24/20 04:00 44 08/24/20 04:00 96.2 54 20 135/57 (83) 92 08/24/20 00:00 54 08/24/20 00:00 96.8 78 20 124/51 (75) 92 Intake and Output 08/23/20 08/24/20 19:00 07:00 Intake Total 360 ml 240 ml Balance 360 ml 240 ml Intake Oral 360 ml 240 ml # Voids 3 # Bowel Movements 1 1 Laboratory Tests 08/24/20 05:34: POC Whole Blood Glucose [Pending] 08/24/20 06:57: POC Whole Blood Glucose [Pending] 08/24/20 16:54: POC Whole Blood Glucose 167H Height (Feet): 5 Height (Inches): 8.00 Weight (Pounds): 163 Assessment/Plan Problem List: (1) Renal failure (ARF), acute on chronic ICD Codes: N17.9 - Acute kidney failure, unspecified; N18.9 - Chronic kidney disease, unspecified SNOMED: 859385366 (2) Diabetes mellitus ICD Codes: E11.9 - Type 2 diabetes mellitus without complications SNOMED: 74865621 (3) Sepsis due to urinary tract infection ICD Codes: A41.9 - Sepsis, unspecified organism; N39.0 - Urinary tract infection, site not specified SNOMED: 488032597 (4) Episode of generalized weakness ICD Codes: R53.1 - Weakness SNOMED: 13042206 (5) Renal failure (ARF), acute on chronic ICD Codes: N17.9 - Acute kidney failure, unspecified; N18.9 - Chronic kidney disease, unspecified SNOMED: 783656625 (6) CVA, old, hemiparesis ICD Codes: I69.359 - Hemiplegia and hemiparesis following cerebral infarction affecting unspecified side SNOMED: 778648220 (7) Hypoxia ICD Codes: R09.02 - Hypoxemia SNOMED: 276746085 (8) 2019 novel coronavirus detected ICD Codes: U07.1 - COVID-19 SNOMED: 7842696743210922 (9) BPH (benign prostatic hyperplasia) ICD Codes: N40.0 - Benign prostatic hyperplasia without lower urinary tract symptoms SNOMED: 670597985 Status: progressing, unchanged Assessment/Plan: covid + no change reviewed chart afebrile azotmia improving sepsis Jose David Headley MD Aug 24, 2020 21:04
[2020-08-25] VITALS: BP 135/56
[2020-08-25 04:00] VITALS: BP 133/52
[2020-08-25] MEDS: NovoLOG Insulin Flexpen SUBQ SCH ×4 (06:10→21:45)
--- NOTE | 2020-08-25 07:30 | NUR ---
NURSE HAND-OFF REPORT: Important Events on Shift:[n/a] Patient Status: [] Diet: [cardiac] Pending Orders: [] Pending Results/Labs:[] Pending MD notification:[] Latest Vital Signs: Temperature 97.6 , Pulse 44 , B/P 133 /52 , Respiratory Rate 24 , O2 SAT 97 , Nasal Cannula, O2 Flow Rate 15.0 . Vital Sign Comment: [] EKG Rhythm: SB w BBB Rhythm change?: N MD Notified?: Y -Dr. Sacha GLASS Response: No New Orders Received Latest Wong Fall Score: 40 Fall Risk: Medium Risk Safety Measures: Call light Within Reach, Bed Alarm Zone 1, Side Rails Side Rails x2, Bed position Low and Locked. Fall Precautions: Yellow Socks Yellow Gown Patient Fall Education Report given to [vinay espitia].
--- NOTE | 2020-08-25 07:32 | NUR ---
NURSE NOTES: pt is in bed and awake. pt is on NRB 15L, breathing is shallow. IV is intact and running NS @ 50mll/hr. pt is on pvc monitor showing no signs of cardiac distress. condom catheter is placed. bed is locked and in lowest position, call light and phone is within reach.
[2020-08-25 08:00] VITALS: BP 112/56
[2020-08-25 08:12] LABS: HEMATOCRIT 46.2 % (42.0-52.0); HEMOGLOBIN 14.9 G/DL (14.2-18.0); MEAN CORPUSCULAR VOLUME 83 FL (80-99); PLATELET COUNT 269 K/UL (150-450); RED BLOOD COUNT 5.53 M/UL (4.70-6.10); RED CELL DISTRIBUTION WIDTH 14.5 % (11.6-14.8)
[2020-08-25 08:36] LABS: PHOSPHORUS 3.1 MG/DL (2.5-4.9)
[2020-08-25 08:38] LABS: ALBUMIN 2.2 G/DL (3.4-5.0); ALBUMIN/GLOBULIN RATIO 0.6 (1.0-2.7); BILIRUBIN,TOTAL 0.5 MG/DL (0.2-1.0); CALCIUM 8.5 MG/DL (8.5-10.1); CREATININE 1.2 MG/DL (0.55-1.30); POTASSIUM 4.4 MMOL/L (3.5-5.1); POTASSIUM 4.8 MMOL/L (3.5-5.1)
--- NOTE | 2020-08-25 08:45 | Pulmonology Progress Note ---
Subjective ROS Limited/Unobtainable: Yes Allergies: Coded Allergies: No Known Allergies (Unverified , 01/04/19) Subjective no fevers, leukocytosis on 100% NRM, which remived for breakfast and sat on NC was > 90% CXR 08/22 with worsening BL infiltrates Objective Last 24 Hour Vital Signs Date Time Temp Pulse Resp B/P (MAP) Pulse Ox O2 Delivery O2 Flow Rate FiO2 08/25/20 04:00 97.6 53 24 133/52 (79) 97 08/25/20 04:00 44 08/25/20 00:00 49 08/25/20 00:00 97.0 62 22 135/56 (82) 97 08/24/20 21:00 Non-Rebreather 15.0 08/24/20 20:00 54 08/24/20 20:00 97.7 55 24 142/61 (88) 97 08/24/20 16:00 97.7 65 20 138/62 (87) 92 08/24/20 16:00 54 08/24/20 12:00 97.3 59 22 117/57 (77) 93 08/24/20 12:00 63 08/24/20 09:00 Nasal Cannula 5.0 Intake and Output 08/24/20 08/25/20 19:00 07:00 Output Total 400 ml Balance -400 ml Output Urine Total 400 ml # Voids 1 2 # Bowel Movements 1 1 General Appearance: WD/WN HEENT: normocephalic, atraumatic, other - O2 Respiratory: chest wall non-tender, rhonchi - bilaterally - scattered Cardiovascular: normal peripheral pulses, normal rate, regular rhythm Abdomen: normal bowel sounds, soft, non tender Genitourinary: normal external genitalia Extremities: no clubbing Neurologic: alert, responsive, other - R side paresis Musculoskeletal: atrophy - BLE Laboratory Tests 08/24/20 16:54: POC Whole Blood Glucose 167H 08/25/20 06:00: POC Whole Blood Glucose 195H 08/25/20 06:10: White Blood Count 14.0H, Red Blood Count 5.53, Hemoglobin 14.9, Hematocrit 46.2, Mean Corpuscular Volume 83, Mean Corpuscular Hemoglobin 26.8L, Mean Corpuscular Hemoglobin Concent 32.2, Red Cell Distribution Width 14.5, Platelet Count 269, Mean Platelet Volume 6.7, Neutrophils (%) (Auto) , Lymphocytes (%) (Auto) , Monocytes (%) (Auto) , Eosinophils (%) (Auto) , Basophils (%) (Auto) , Neutrophils % (Manual) [Pending], Lymphocytes % (Manual) [Pending], Platelet Estimate [Pending], Platelet Morphology [Pending], Sodium Level 146H, Potassium Level 4.8, Chloride Level 114H, Carbon Dioxide Level 27, Anion Gap 5, Blood Urea Nitrogen 35H, Creatinine 1.2, Estimat Glomerular Filtration Rate 57.4, Glucose Level 174H, Calcium Level 8.5, Phosphorus Level 3.1, Magnesium Level 2.0, Ferritin 454H, Total Bilirubin 0.5, Aspartate Amino Transf (AST/SGOT) 17, Alanine Aminotransferase (ALT/SGPT) 16, Alkaline Phosphatase 93, C-Reactive Protein, Quantitative 3.4H, Total Protein 5.6L, Albumin 2.2L, Globulin 3.4, Albumin/Globulin Ratio 0.6L Current Medications Medications (Trade) Dose Ordered Sig/Amaya Route PRN Reason Start Time Stop Time Status Last Admin Dose Admin Acetaminophen (Tylenol) 650 mg Q4H PRN ORAL Temp >100.5 08/17/20 19:45 09/16/20 19:44 Albuterol/ Ipratropium (Combivent Respimat) 1 puff Q4H PRN INH Shortness of Breath 08/18/20 13:00 09/17/20 12:59 Apixaban (Eliquis) 5 mg BID ORAL 08/18/20 18:00 11/16/20 17:59 08/24/20 17:03 Dexamethasone (Decadron) 6 mg DAILY ORAL 08/18/20 09:00 08/26/20 12:00 08/24/20 08:25 Dextrose (Dextrose 50%) 25 ml Q30M PRN IV Hypoglycemia 08/18/20 11:45 11/16/20 11:44 Dextrose (Dextrose 50%) 50 ml Q30M PRN IV Hypoglycemia 08/18/20 11:45 11/16/20 11:44 Insulin Aspart (NovoLOG) BEFORE MEALS AND HS SUBQ 08/18/20 16:30 11/16/20 16:29 08/25/20 06:10 Ondansetron HCl (Zofran) 4 mg Q6H PRN IVP Nausea & Vomiting 08/17/20 19:45 09/16/20 19:44 Pantoprazole (Protonix) 40 mg DAILY ORAL 08/18/20 09:00 09/17/20 08:59 08/24/20 08:25 Polyethylene Glycol (Miralax) 17 gm DAILYPRN PRN ORAL Constipation 08/17/20 19:45 09/16/20 19:44 08/19/20 17:56 Promethazine HCl/ Codeine (Phenergan with Codeine) 5 ml Q6H PRN ORAL cough 08/17/20 19:45 09/16/20 19:44 Sodium Chloride 1,000 ml @ 50 mls/hr Q20H IV 08/18/20 18:30 09/17/20 18:29 08/24/20 14:07 Tamsulosin HCl (Flomax) 0.4 mg BID ORAL 08/18/20 09:00 09/17/20 08:59 08/24/20 17:03 Assessment/Plan Assessment/Plan ASSESSMENT COVID-19 pneumonia Acute hypoxemic respiratory failure, requiring NRM CATHERINE due to dehydration probably on CKD E. coli ESBL UTI HTN DM BPH Hx of CVA with R sided hemiparesis PLAN OF CARE tele supplemental O2, titrate to keep pulse ox above 90% pulmonary toilet s/p remdesivir x 5 days continue steroids for total of 10 days a/c with Eliquis a/tussive prn f/up with CXR trend inflammatory markers: CRP down to 3.4 this am GI prophylaxis CATHERINE- resolved , likely was due to dehydration renal US noted abx for UTI -> completed BP stable ; off anti/HTN at this time BS management with SSI continue Flomax supportive care case discussed and evaluated by supervising physician Krystal Sherman NP Aug 25, 2020 08:45
[2020-08-25] MEDS: Tamsulosin 0.4mg cap ORAL SCH ×2 (09:00→18:07)
[2020-08-25] MEDS: Eliquis 5mg tablet ORAL SCH ×2 (09:01→18:07)
[2020-08-25 12:00] VITALS: BP 129/70
[2020-08-25 14:00] VITALS: BP 134/66
[2020-08-25 16:00] VITALS: BP 134/66
--- NOTE | 2020-08-25 16:25 | Nephrology Progress Note ---
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 Hypertension Diabetes, hypoalbuminemia BPH Plan August 25: Labs are [place]BCs [place] [address]. Renal parameters stable. August 24: Status quo. No labs drawn today. Will check lab tomorrow. August 23: Status quo. Labs reviewed. Renal parameters are stable. Continue per consultants. August 22: Status quo. Stable renal parameters. Continue per consultants. August 21: Labs were reviewed. Renal parameters are stable. Continue per consultants. August 20: Labs reviewed. Creatinine now normalized. Electrolytes within normal limit. Continue per consultants. Antibiotics Slow hydrate with normal saline Monitor renal parameters Keep the blood pressure blood sugar in check Per orders Subjective ROS Limited/Unobtainable: No Constitutional: Reports: malaise Objective Objective Last 24 Hour Vital Signs Date Time Temp Pulse Resp B/P (MAP) Pulse Ox O2 Delivery O2 Flow Rate FiO2 08/25/20 14:00 97.9 82 22 134/66 (88) 95 08/25/20 12:00 97.7 76 22 129/70 (89) 94 08/25/20 12:00 61 08/25/20 09:00 Non-Rebreather 15.0 08/25/20 08:00 62 08/25/20 08:00 96.1 61 20 112/56 (74) 95 08/25/20 04:00 97.6 53 24 133/52 (79) 97 08/25/20 04:00 44 08/25/20 00:00 49 08/25/20 00:00 97.0 62 22 135/56 (82) 97 08/24/20 21:00 Non-Rebreather 15.0 08/24/20 20:00 54 08/24/20 20:00 97.7 55 24 142/61 (88) 97 Intake and Output 08/24/20 08/25/20 19:00 07:00 Output Total 400 ml Balance -400 ml Output Urine Total 400 ml # Voids 1 2 # Bowel Movements 1 1 Current Medications Medications (Trade) Dose Ordered Sig/Amaya Route PRN Reason Start Time Stop Time Status Last Admin Dose Admin Acetaminophen (Tylenol) 650 mg Q4H PRN ORAL Temp >100.5 08/17/20 19:45 09/16/20 19:44 Albuterol/ Ipratropium (Combivent Respimat) 1 puff Q4H PRN INH Shortness of Breath 08/18/20 13:00 09/17/20 12:59 Apixaban (Eliquis) 5 mg BID ORAL 08/18/20 18:00 11/16/20 17:59 08/25/20 09:01 Dexamethasone (Decadron) 6 mg DAILY ORAL 08/18/20 09:00 08/26/20 12:00 08/25/20 09:01 Dextrose (Dextrose 50%) 25 ml Q30M PRN IV Hypoglycemia 08/18/20 11:45 11/16/20 11:44 Dextrose (Dextrose 50%) 50 ml Q30M PRN IV Hypoglycemia 08/18/20 11:45 11/16/20 11:44 Insulin Aspart (NovoLOG) BEFORE MEALS AND HS SUBQ 08/18/20 16:30 11/16/20 16:29 08/25/20 06:10 Ondansetron HCl (Zofran) 4 mg Q6H PRN IVP Nausea & Vomiting 08/17/20 19:45 09/16/20 19:44 Pantoprazole (Protonix) 40 mg DAILY ORAL 08/18/20 09:00 09/17/20 08:59 08/25/20 09:00 Polyethylene Glycol (Miralax) 17 gm DAILYPRN PRN ORAL Constipation 08/17/20 19:45 09/16/20 19:44 08/19/20 17:56 Promethazine HCl/ Codeine (Phenergan with Codeine) 5 ml Q6H PRN ORAL cough 08/17/20 19:45 09/16/20 19:44 Sodium Chloride 1,000 ml @ 50 mls/hr Q20H IV 08/18/20 18:30 09/17/20 18:29 08/25/20 12:12 Tamsulosin HCl (Flomax) 0.4 mg BID ORAL 08/18/20 09:00 09/17/20 08:59 08/25/20 09:00 Laboratory Tests 08/24/20 16:54: POC Whole Blood Glucose 167H 08/25/20 06:00: POC Whole Blood Glucose 195H 08/25/20 06:10: White Blood Count 14.0H, Red Blood Count 5.53, Hemoglobin 14.9, Hematocrit 46.2, Mean Corpuscular Volume 83, Mean Corpuscular Hemoglobin 26.8L, Mean Corpuscular Hemoglobin Concent 32.2, Red Cell Distribution Width 14.5, Platelet Count 269, Mean Platelet Volume 6.7, Neutrophils (%) (Auto) , Lymphocytes (%) (Auto) , Monocytes (%) (Auto) , Eosinophils (%) (Auto) , Basophils (%) (Auto) , Differential Total Cells Counted 100, Neutrophils % (Manual) 90H, Lymphocytes % (Manual) 9L, Monocytes % (Manual) 1, Eosinophils % (Manual) 0, Basophils % (Manual) 0, Band Neutrophils 0, Platelet Estimate Adequate, Platelet Morphology Normal, Anisocytosis 1+, Sodium Level 146H, Potassium Level 4.8, Chloride Level 114H, Carbon Dioxide Level 27, Anion Gap 5, Blood Urea Nitrogen 35H, Creatinine 1.2, Estimat Glomerular Filtration Rate 57.4, Glucose Level 174H, Calcium Level 8.5, Phosphorus Level 3.1, Magnesium Level 2.0, Ferritin 454H, Total Bilirubin 0.5, Aspartate Amino Transf (AST/SGOT) 17, Alanine Aminotransferase (ALT/SGPT) 16, Alkaline Phosphatase 93, C-Reactive Protein, Quantitative 3.4H, Total Protein 5.6L, Albumin 2.2L, Globulin 3.4, Albumin/Globulin Ratio 0.6L Height (Feet): 5 Height (Inches): 8.00 Weight (Pounds): 163 General Appearance: no apparent distress Cardiovascular: normal rate Respiratory/Chest: decreased breath sounds Abdomen: distended Devonte Zuniga MD Aug 25, 2020 16:25
--- NOTE | 2020-08-25 19:41 | NUR ---
NURSE HAND-OFF REPORT: Important Events on Shift:[]n/a Patient Status: []full code Diet: [] cardiac regular Pending Orders: [] Pending Results/Labs:[] CBC, CMP Pending MD notification:[] Latest Vital Signs: Temperature 97.9 , Pulse 91 , B/P 134 /66 , Respiratory Rate 22 , O2 SAT 95 , Nasal Cannula, O2 Flow Rate 15.0 . Vital Sign Comment: [] EKG Rhythm: SB w BBB Rhythm change?: N MD Notified?: Y -Dr. Sacha GLASS Response: No New Orders Received Latest Wong Fall Score: 40 Fall Risk: Medium Risk Safety Measures: Call light Within Reach, Bed Alarm Zone 1, Side Rails Side Rails x2, Bed position Low and Locked. Fall Precautions: Yellow Socks Yellow Gown Patient Fall Education Report given to [].Marielena ADAMS
--- NOTE | 2020-08-25 20:04 | NUR ---
NURSE NOTES: RECEIVED REPORT FROM BRYAN LEDEZMA. PT IN BED AWAKE, A/O X4, ABLE TO MAKE NEEDS KNOWN. ON NON-REBREATHER 15L/MIN SATING 94%. 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 IV ON LEFT FA RUNNING NS AT 50CC/HR. NO C/O PAIN. BED IN LOW POSITION & LOCKED. SIDE RAILS UP X3. BED ALARM ON. CALL LIGHT WITH IN REACH. CONTINUE PLAN OF CARE.
--- NOTE | 2020-08-25 20:08 | General Progress Note ---
Subjective ROS Limited/Unobtainable: Yes Allergies: Coded Allergies: No Known Allergies (Unverified , 01/04/19) Objective Last 24 Hour Vital Signs Date Time Temp Pulse Resp B/P (MAP) Pulse Ox O2 Delivery O2 Flow Rate FiO2 08/25/20 16:00 91 08/25/20 16:00 97.9 82 22 134/66 (88) 95 08/25/20 14:00 97.9 82 22 134/66 (88) 95 08/25/20 12:00 97.7 76 22 129/70 (89) 94 08/25/20 12:00 61 08/25/20 09:00 Non-Rebreather 15.0 08/25/20 08:00 62 08/25/20 08:00 96.1 61 20 112/56 (74) 95 08/25/20 04:00 97.6 53 24 133/52 (79) 97 08/25/20 04:00 44 08/25/20 00:00 49 08/25/20 00:00 97.0 62 22 135/56 (82) 97 08/24/20 21:00 Non-Rebreather 15.0 Intake and Output 08/24/20 08/25/20 19:00 07:00 Output Total 400 ml Balance -400 ml Output Urine Total 400 ml # Voids 1 2 # Bowel Movements 1 1 Laboratory Tests 08/25/20 06:00: POC Whole Blood Glucose 195H 08/25/20 06:10: White Blood Count 14.0H, Red Blood Count 5.53, Hemoglobin 14.9, Hematocrit 46.2, Mean Corpuscular Volume 83, Mean Corpuscular Hemoglobin 26.8L, Mean Corpuscular Hemoglobin Concent 32.2, Red Cell Distribution Width 14.5, Platelet Count 269, Mean Platelet Volume 6.7, Neutrophils (%) (Auto) , Lymphocytes (%) (Auto) , Monocytes (%) (Auto) , Eosinophils (%) (Auto) , Basophils (%) (Auto) , Differential Total Cells Counted 100, Neutrophils % (Manual) 90H, Lymphocytes % (Manual) 9L, Monocytes % (Manual) 1, Eosinophils % (Manual) 0, Basophils % (Manual) 0, Band Neutrophils 0, Platelet Estimate Adequate, Platelet Morphology Normal, Anisocytosis 1+, Sodium Level 146H, Potassium Level 4.8, Chloride Level 114H, Carbon Dioxide Level 27, Anion Gap 5, Blood Urea Nitrogen 35H, Creatinine 1.2, Estimat Glomerular Filtration Rate 57.4, Glucose Level 174H, Calcium Level 8.5, Phosphorus Level 3.1, Magnesium Level 2.0, Ferritin 454H, Total Bilirubin 0.5, Aspartate Amino Transf (AST/SGOT) 17, Alanine Aminotransferase (ALT/SGPT) 16, Alkaline Phosphatase 93, C-Reactive Protein, Quantitative 3.4H, Total Prot ein 5.6L, Albumin 2.2L, Globulin 3.4, Albumin/Globulin Ratio 0.6L Height (Feet): 5 Height (Inches): 8.00 Weight (Pounds): 163 Assessment/Plan Problem List: (1) Renal failure (ARF), acute on chronic ICD Codes: N17.9 - Acute kidney failure, unspecified; N18.9 - Chronic kidney disease, unspecified SNOMED: 362150561 (2) Diabetes mellitus ICD Codes: E11.9 - Type 2 diabetes mellitus without complications SNOMED: 70199427 (3) Sepsis due to urinary tract infection ICD Codes: A41.9 - Sepsis, unspecified organism; N39.0 - Urinary tract infection, site not specified SNOMED: 059201246 (4) Episode of generalized weakness ICD Codes: R53.1 - Weakness SNOMED: 50298191 (5) Renal failure (ARF), acute on chronic ICD Codes: N17.9 - Acute kidney failure, unspecified; N18.9 - Chronic kidney disease, unspecified SNOMED: 503885354 (6) CVA, old, hemiparesis ICD Codes: I69.359 - Hemiplegia and hemiparesis following cerebral infarction affecting unspecified side SNOMED: 178791254 (7) Hypoxia ICD Codes: R09.02 - Hypoxemia SNOMED: 745271525 (8) 2019 novel coronavirus detected ICD Codes: U07.1 - COVID-19 SNOMED: 2927882309491494 (9) BPH (benign prostatic hyperplasia) ICD Codes: N40.0 - Benign prostatic hyperplasia without lower urinary tract symptoms SNOMED: 938264935 Status: progressing, unchanged Assessment/Plan: covid + supportive care afebrile dehydration azotmia improving sepsis Jose David Headley MD Aug 25, 2020 20:08
[2020-08-26] VITALS: BP 105/59
[2020-08-26 04:00] VITALS: BP 112/50
[2020-08-26] MEDS: NovoLOG Insulin Flexpen SUBQ SCH ×4 (06:30→21:00)
[2020-08-26 07:22] LABS: HEMATOCRIT 38.4 % (42.0-52.0); HEMOGLOBIN 12.9 G/DL (14.2-18.0); MEAN CORPUSCULAR VOLUME 81 FL (80-99); PLATELET COUNT 206 K/UL (150-450); RED BLOOD COUNT 4.72 M/UL (4.70-6.10); WHITE BLOOD COUNT 14.9 K/UL (4.8-10.8)
[2020-08-26 07:23] LABS: ANION GAP 6 mmol/L (5-15); BLOOD UREA NITROGEN 28 mg/dL (7-18); CALCIUM 8.1 MG/DL (8.5-10.1); CARBON DIOXIDE 25 MMOL/L (21-32); CHLORIDE 113 MMOL/L (98-107); POTASSIUM 4.2 MMOL/L (3.5-5.1); SODIUM 144 MMOL/L (136-145)
--- NOTE | 2020-08-26 07:40 | NUR ---
NURSE HAND-OFF REPORT: Important Events on Shift:[N/A] Patient Status: [SATBLE] Diet: [CARDIAC] Pending Orders: [] Pending Results/Labs:[] Pending MD notification:[] Latest Vital Signs: Temperature 97.0 , Pulse 50 , B/P 112 /50 , Respiratory Rate 22 , O2 SAT 95 , Nasal Cannula, O2 Flow Rate 15.0 . Vital Sign Comment: [] EKG Rhythm: SB w BBB Rhythm change?: Y MD Notified?: N -Dr. Sacha GLASS Response: No New Orders Received Latest Wong Fall Score: 40 Fall Risk: Medium Risk Safety Measures: Call light Within Reach, Bed Alarm Zone 1, Side Rails Side Rails x2, Bed position Low and Locked. Fall Precautions: Yellow Socks Yellow Gown Patient Fall Education Report given to [BRYAN RUIZ].
[2020-08-26 08:00] VITALS: BP 112/70
--- NOTE | 2020-08-26 08:30 | NUR ---
NURSE NOTES: pt in bed and having breakfast. 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 Bed in lowest position and locked. Call light within reach. will continue to monitor.
[2020-08-26] MEDS: Tamsulosin 0.4mg cap ORAL SCH ×2 (09:29→17:15)
[2020-08-26] MEDS: Eliquis 5mg tablet ORAL SCH ×2 (09:29→17:15)
--- NOTE | 2020-08-26 11:37 | Cardiac Electrophysiology PN ---
Assessment/Plan Assessment/Plan 1. COVID-19 pneumonia. S/P Remdesevir, ceftriaxone, albuterol, dexamethasone and apixaban. On 14 liter VM 2. Hypertension. Stable off antihypertensive agents. 3. Diabetes. 4. History of CVA with hemiparesis. 5. Benign prostatic hypertrophy. 6. Neno with HR high 40s, likely due to Covid DW RN Subjective Subjective Alert in NAD on 14 liter VM in Covid isolation. HR high 40s. Getting wound care for sacral decubitus. Objective Last 24 Hour Vital Signs Date Time Temp Pulse Resp B/P (MAP) Pulse Ox O2 Delivery O2 Flow Rate FiO2 08/26/20 04:00 97.0 50 22 112/50 (70) 95 08/26/20 04:00 46 08/26/20 00:00 50 08/26/20 00:00 97.5 51 22 105/59 (74) 97 08/25/20 21:00 Non-Rebreather 15.0 08/25/20 20:00 78 08/25/20 16:00 91 08/25/20 16:00 97.9 82 22 134/66 (88) 95 08/25/20 14:00 97.9 82 22 134/66 (88) 95 08/25/20 12:00 97.7 76 22 129/70 (89) 94 08/25/20 12:00 61 Intake and Output 08/25/20 08/26/20 19:00 07:00 Intake Total 720 ml 200 ml Output Total 600 ml 500 ml Balance 120 ml -300 ml Intake Oral 720 ml 200 ml Output Urine Total 600 ml 500 ml # Bowel Movements 1 Laboratory Tests Test 08/26/20 04:30 08/26/20 05:36 White Blood Count 14.9 K/UL (4.8-10.8) H Red Blood Count 4.72 M/UL (4.70-6.10) Hemoglobin 12.9 G/DL (14.2-18.0) L Hematocrit 38.4 % (42.0-52.0) L Mean Corpuscular Volume 81 FL (80-99) Mean Corpuscular Hemoglobin 27.3 PG (27.0-31.0) Mean Corpuscular Hemoglobin Concent 33.5 G/DL (32.0-36.0) Red Cell Distribution Width 14.0 % (11.6-14.8) Platelet Count 206 K/UL (150-450) Mean Platelet Volume 6.8 FL (6.5-10.1) Neutrophils (%) (Auto) % (45.0-75.0) Lymphocytes (%) (Auto) % (20.0-45.0) Monocytes (%) (Auto) % (1.0-10.0) Eosinophils (%) (Auto) % (0.0-3.0) Basophils (%) (Auto) % (0.0-2.0) Differential Total Cells Counted 100 Neutrophils % (Manual) 89 % (45-75) H Lymphocytes % (Manual) 5 % (20-45) L Monocytes % (Manual) 6 % (1-10) Eosinophils % (Manual) 0 % (0-3) Basophils % (Manual) 0 % (0-2) Band Neutrophils 0 % (0-8) Platelet Estimate Adequate Platelet Morphology Normal Red Blood Cell Morphology Normal Sodium Level 144 MMOL/L (136-145) Potassium Level 4.2 MMOL/L (3.5-5.1) Chloride Level 113 MMOL/L (98-107) H Carbon Dioxide Level 25 MMOL/L (21-32) Anion Gap 6 mmol/L (5-15) Blood Urea Nitrogen 28 mg/dL (7-18) H Creatinine 1.0 MG/DL (0.55-1.30) Estimat Glomerular Filtration Rate > 60 mL/min (>60) Glucose Level 109 MG/DL (74-106) H Calcium Level 8.1 MG/DL (8.5-10.1) L POC Whole Blood Glucose 101 MG/DL (74-106) Objective HEAD AND NECK: No JVD. LUNGS: Coarse rhonchi. CARDIOVASCULAR: Regular S1 and S2 with no gallop or murmur. ABDOMEN: Soft. EXTREMITIES: No pitting edema. Sabino Goncalves MD Aug 26, 2020 11:37
--- NOTE | 2020-08-26 11:42 | General Progress Note ---
Subjective ROS Limited/Unobtainable: Yes Allergies: Coded Allergies: No Known Allergies (Unverified , 01/04/19) Objective Last 24 Hour Vital Signs Date Time Temp Pulse Resp B/P (MAP) Pulse Ox O2 Delivery O2 Flow Rate FiO2 08/26/20 04:00 97.0 50 22 112/50 (70) 95 08/26/20 04:00 46 08/26/20 00:00 50 08/26/20 00:00 97.5 51 22 105/59 (74) 97 08/25/20 21:00 Non-Rebreather 15.0 08/25/20 20:00 78 08/25/20 16:00 91 08/25/20 16:00 97.9 82 22 134/66 (88) 95 08/25/20 14:00 97.9 82 22 134/66 (88) 95 08/25/20 12:00 97.7 76 22 129/70 (89) 94 08/25/20 12:00 61 Intake and Output 08/25/20 08/26/20 19:00 07:00 Intake Total 720 ml 200 ml Output Total 600 ml 500 ml Balance 120 ml -300 ml Intake Oral 720 ml 200 ml Output Urine Total 600 ml 500 ml # Bowel Movements 1 Laboratory Tests 08/26/20 04:30: White Blood Count 14.9H, Red Blood Count 4.72, Hemoglobin 12.9L, Hematocrit 38.4L, Mean Corpuscular Volume 81, Mean Corpuscular Hemoglobin 27.3, Mean Corpuscular Hemoglobin Concent 33.5, Red Cell Distribution Width 14.0, Platelet Count 206, Mean Platelet Volume 6.8, Neutrophils (%) (Auto) , Lymphocytes (%) (Auto) , Monocytes (%) (Auto) , Eosinophils (%) (Auto) , Basophils (%) (Auto) , Differential Total Cells Counted 100, Neutrophils % (Manual) 89H, Lymphocytes % (Manual) 5L, Monocytes % (Manual) 6, Eosinophils % (Manual) 0, Basophils % (Manual) 0, Band Neutrophils 0, Platelet Estimate Adequate, Platelet Morphology Normal, Red Blood Cell Morphology Normal, Sodium Level 144, Potassium Level 4.2, Chloride Level 113H, Carbon Dioxide Level 25, Anion Gap 6, Blood Urea Nitrogen 28H, Creatinine 1.0, Estimat Glomerular Filtration Rate > 60, Glucose Level 109H , Calcium Level 8.1L 08/26/20 05:36: POC Whole Blood Glucose 101 Height (Feet): 5 Height (Inches): 8.00 Weight (Pounds): 163 Assessment/Plan Problem List: (1) Renal failure (ARF), acute on chronic ICD Codes: N17.9 - Acute kidney failure, unspecified; N18.9 - Chronic kidney disease, unspecified SNOMED: 632707865 (2) Diabetes mellitus ICD Codes: E11.9 - Type 2 diabetes mellitus without complications SNOMED: 80458689 (3) Sepsis due to urinary tract infection ICD Codes: A41.9 - Sepsis, unspecified organism; N39.0 - Urinary tract infection, site not specified SNOMED: 715492471 (4) Episode of generalized weakness ICD Codes: R53.1 - Weakness SNOMED: 13962252 (5) Renal failure (ARF), acute on chronic ICD Codes: N17.9 - Acute kidney failure, unspecified; N18.9 - Chronic kidney disease, unspecified SNOMED: 192505374 (6) CVA, old, hemiparesis ICD Codes: I69.359 - Hemiplegia and hemiparesis following cerebral infarction affecting unspecified side SNOMED: 193093694 (7) Hypoxia ICD Codes: R09.02 - Hypoxemia SNOMED: 809887475 (8) 2019 novel coronavirus detected ICD Codes: U07.1 - COVID-19 SNOMED: 1145928495014222 (9) BPH (benign prostatic hyperplasia) ICD Codes: N40.0 - Benign prostatic hyperplasia without lower urinary tract symptoms SNOMED: 733525293 Status: progressing, unchanged Assessment/Plan: covid + check lytes afebrile abx per id dehydration azotmia improving sepsis Jose David Headley MD Aug 26, 2020 11:42
[2020-08-26 12:00] VITALS: BP 122/47
--- NOTE | 2020-08-26 12:46 | Nephrology Progress Note ---
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 Hypertension Diabetes, hypoalbuminemia BPH Plan August 26: White blood cells 14.9. Renal parameters stable. Continue per consultants. August 25: Labs are reviewed.WBCs [place] 96416. Renal parameters stable. August 24: Status quo. No labs drawn today. Will check lab tomorrow. August 23: Status quo. Labs reviewed. Renal parameters are stable. Continue per consultants. August 22: Status quo. Stable renal parameters. Continue per consultants. August 21: Labs were reviewed. Renal parameters are stable. Continue per consultants. August 20: Labs reviewed. Creatinine now normalized. Electrolytes within normal limit. Continue per consultants. Antibiotics Slow hydrate with normal saline Monitor renal parameters Keep the blood pressure blood sugar in check Per orders Subjective ROS Limited/Unobtainable: No Constitutional: Reports: malaise, weakness Objective Objective Last 24 Hour Vital Signs Date Time Temp Pulse Resp B/P (MAP) Pulse Ox O2 Delivery O2 Flow Rate FiO2 08/26/20 04:00 97.0 50 22 112/50 (70) 95 08/26/20 04:00 46 08/26/20 00:00 50 08/26/20 00:00 97.5 51 22 105/59 (74) 97 08/25/20 21:00 Non-Rebreather 15.0 08/25/20 20:00 78 08/25/20 16:00 91 08/25/20 16:00 97.9 82 22 134/66 (88) 95 08/25/20 14:00 97.9 82 22 134/66 (88) 95 Intake and Output 08/25/20 08/26/20 19:00 07:00 Intake Total 720 ml 200 ml Output Total 600 ml 500 ml Balance 120 ml -300 ml Intake Oral 720 ml 200 ml Output Urine Total 600 ml 500 ml # Bowel Movements 1 Current Medications Medications (Trade) Dose Ordered Sig/Amaya Route PRN Reason Start Time Stop Time Status Last Admin Dose Admin Acetaminophen (Tylenol) 650 mg Q4H PRN ORAL Temp >100.5 08/17/20 19:45 09/16/20 19:44 Albuterol/ Ipratropium (Combivent Respimat) 1 puff Q4H PRN INH Shortness of Breath 08/18/20 13:00 09/17/20 12:59 Apixaban (Eliquis) 5 mg BID ORAL 08/18/20 18:00 11/16/20 17:59 08/26/20 09:29 Dextrose (Dextrose 50%) 25 ml Q30M PRN IV Hypoglycemia 08/18/20 11:45 11/16/20 11:44 Dextrose (Dextrose 50%) 50 ml Q30M PRN IV Hypoglycemia 08/18/20 11:45 11/16/20 11:44 Insulin Aspart (NovoLOG) BEFORE MEALS AND HS SUBQ 08/18/20 16:30 11/16/20 16:29 08/25/20 21:45 Ondansetron HCl (Zofran) 4 mg Q6H PRN IVP Nausea & Vomiting 08/17/20 19:45 09/16/20 19:44 Pantoprazole (Protonix) 40 mg DAILY ORAL 08/18/20 09:00 09/17/20 08:59 08/26/20 09:29 Polyethylene Glycol (Miralax) 17 gm DAILYPRN PRN ORAL Constipation 08/17/20 19:45 09/16/20 19:44 08/19/20 17:56 Promethazine HCl/ Codeine (Phenergan with Codeine) 5 ml Q6H PRN ORAL cough 08/17/20 19:45 09/16/20 19:44 Sodium Chloride 1,000 ml @ 50 mls/hr Q20H IV 08/18/20 18:30 09/17/20 18:29 08/26/20 05:38 Tamsulosin HCl (Flomax) 0.4 mg BID ORAL 08/18/20 09:00 09/17/20 08:59 08/26/20 09:29 Laboratory Tests 08/26/20 04:30: White Blood Count 14.9H, Red Blood Count 4.72, Hemoglobin 12.9L, Hematocrit 38.4L, Mean Corpuscular Volume 81, Mean Corpuscular Hemoglobin 27.3, Mean Corpuscular Hemoglobin Concent 33.5, Red Cell Distribution Width 14.0, Platelet Count 206, Mean Platelet Volume 6.8, Neutrophils (%) (Auto) , Lymphocytes (%) (Auto) , Monocytes (%) (Auto) , Eosinophils (%) (Auto) , Basophils (%) (Auto) , Differential Total Cells Counted 100, Neutrophils % (Manual) 89H, Lymphocytes % (Manual) 5L, Monocytes % (Manual) 6, Eosinophils % (Manual) 0, Basophils % (Manual) 0, Band Neutrophils 0, Platelet Estimate Adequate, Platelet Morphology Normal, Red Blood Cell Morphology Normal, Sodium Level 144, Potassium Level 4.2, Chloride Level 113H, Carbon Dioxide Level 25, Anion Gap 6, Blood Urea Nitrogen 28H, Creatinine 1.0, Estimat Glomerular Filtration Rate > 60, Glucose Level 109H , Calcium Level 8.1L 08/26/20 05:36: POC Whole Blood Glucose 101 Height (Feet): 5 Height (Inches): 8.00 Weight (Pounds): 163 General Appearance: no apparent distress Cardiovascular: bradycardia Respiratory/Chest: decreased breath sounds Abdomen: soft Devonte Zuniga MD Aug 26, 2020 12:46
--- NOTE | 2020-08-26 13:00 | NUR ---
ASE MANAGEMENT:REVIEW 08/26/20 SI: COVID INFECTION. HYPOXIA 97.0 50 22 112/50 95% ON 15L NRB WBC+14.9 BUN+28 IS: IVF@50/HR ELIQUIS PO BID FLOMAX PO BID PROTONIX PO QD : TELEMETRY STATUS DCP: FROM [facility] PLAN: TITRATE OXYGEN SAT 92%
--- NOTE | 2020-08-26 13:15 | Diagnostic Imaging Report ---
Indication: Shortness of breath Technique: One view of the chest Comparison: 08/22/2020 Findings: Allowing for differences in exposure technique, suspect slightly worse right lung infiltrates, particularly in the upper lobe. Left basilar atelectasis and possibly some consolidation appears unchanged. The heart size is normal. Impression: Suspect slight worsening of right lung infiltrates. Unchanged left basilar atelectasis and consolidation
--- NOTE | 2020-08-26 13:31 | NUR ---
NURSE NOTES:WOUND CARE NOTES:Pt presented with Partial Thickness Pressure injury Sacrum (L)1cm x (W)0.6cm. Base of wound is moist and viable with surrounding non-blanchable erythema. No evidence of induration or changes n skin temp noted. Pt resistive to being repositioned. Pt has been educated of risks for further skin decline if pressure is not being relieved off buttocks. Pt then allowed staff to reposition on R side. Scrotum is erythematous. Pt noted to have bladder incontinence. When Urinal placed within reach and encouraged to use urinal, Pt expressed preference to wearing condom Cath. R heel is boggy with non-blanchable erythema. L Heel is boggy with Non-Blanchable erythema. Rubor noted to plantar aspects of both feet. Non-Blanchable erythema L 1st metatarsal head. Tx.Plan: Apply Moisture Barrier Paste to Sacrum. Cover with Optifoam drsg. Change every 3 days and prn. Apply Moisture Barrier Paste to Scrotum with each incontinence care. Apply Cavilon Skin Barrier to both heels and head L 1st metatarsal. Cover each heel with Optifoam drsg. Change every 7 days and prn. Reposition at least every 2hours or as tolerated. Off-load heels with pillow.
--- NOTE | 2020-08-26 14:50 | NUR ---
RADIOLOGY DEPT., CHEST X-RAY DONE.-P.DYE
--- NOTE | 2020-08-26 15:12 | NUR ---
NURSE NOTES:WOUND CARE NOTES:Pt presented on admission with Multiple skin breakdown. Pt exhibited hostility,and was initially not receptive to having skin assessed by wound nurses. Pt was informed wound nurses were there to assess wound on his buttocks. Pt reluctantly consented to having skin assessed. Partial Thickness shearing noted to Sacrum. Base of wound is moist and viable. Non-Blanchable erythema without elevation in skin temp ,induration or fluctuance. Scrotum is erythematous. Non-Blanchable erythema without erythema,induration, or fluctuance R Heel. (L)9cm x (W)5cm. Non-Blanchable erythema without erythema, induration or fluctuance L Heel(L05cm x (W)9cm. PT was educated on wound prevention. Pt informed of risks for further skin decline if Pressure is not being relieved. PT again became hostile and accused staff of Prioritizing his needs. Pt demanded staff get him a book which he informed staff had been delivered downstairs and left with office receptionist. Primary nurse present and is aware of pt's demands. Wound nurse again attempted to educate pt on wound prevention but pt dismissive of staff. Primary nurse reported pt is resisitive to being repositioned. Tx.Plan: Apply Moisture Barrier Paste to Sacrum. Cover with Optifoam drsg. Change every 3 days and prn. Apply Moisture Barrier Paste to BIlat groin and scrotum with each incontinent care Apply Cavilon Skin Barrier to both heels. Cover each heel with Optifoam drsg. Change every 7 days and prn. Reposition at least every 2houors or as tolerated. Off-load heels with pillow.
--- NOTE | 2020-08-26 15:49 | Pulmonology Progress Note ---
Subjective ROS Limited/Unobtainable: No HEENT: Repors: no symptoms Respiratory: Reports: no symptoms Allergies: Coded Allergies: No Known Allergies (Unverified , 01/04/19) Objective Last 24 Hour Vital Signs Date Time Temp Pulse Resp B/P (MAP) Pulse Ox O2 Delivery O2 Flow Rate FiO2 08/26/20 08:00 97.5 58 20 112/70 (84) 92 08/26/20 04:00 97.0 50 22 112/50 (70) 95 08/26/20 04:00 46 08/26/20 00:00 50 08/26/20 00:00 97.5 51 22 105/59 (74) 97 08/25/20 21:00 Non-Rebreather 15.0 08/25/20 20:00 78 08/25/20 16:00 91 08/25/20 16:00 97.9 82 22 134/66 (88) 95 Intake and Output 08/25/20 08/26/20 19:00 07:00 Intake Total 720 ml 200 ml Output Total 600 ml 500 ml Balance 120 ml -300 ml Intake Oral 720 ml 200 ml Output Urine Total 600 ml 500 ml # Bowel Movements 1 General Appearance: WD/WN HEENT: normocephalic, atraumatic, other - O2 Respiratory: chest wall non-tender, rhonchi - bilaterally - scattered Cardiovascular: normal peripheral pulses, normal rate, regular rhythm Abdomen: normal bowel sounds, soft, non tender Genitourinary: normal external genitalia Extremities: no clubbing Neurologic: alert, responsive, other - R side paresis Musculoskeletal: atrophy - BLE Laboratory Tests 08/26/20 04:30: White Blood Count 14.9H, Red Blood Count 4.72, Hemoglobin 12.9L, Hematocrit 38.4L, Mean Corpuscular Volume 81, Mean Corpuscular Hemoglobin 27.3, Mean Corpuscular Hemoglobin Concent 33.5, Red Cell Distribution Width 14.0, Platelet Count 206, Mean Platelet Volume 6.8, Neutrophils (%) (Auto) , Lymphocytes (%) (Auto) , Monocytes (%) (Auto) , Eosinophils (%) (Auto) , Basophils (%) (Auto) , Differential Total Cells Counted 100, Neutrophils % (Manual) 89H, Lymphocytes % (Manual) 5L, Monocytes % (Manual) 6, Eosinophils % (Manual) 0, Basophils % (Manual) 0, Band Neutrophils 0, Platelet Estimate Adequate, Platelet Morphology Normal, Red Blood Cell Morphology Normal, Sodium Level 144, Potassium Level 4.2, Chloride Level 113H, Carbon Dioxide Level 25, Anion Gap 6, Blood Urea Nitrogen 28H, Creatinine 1.0, Estimat Glomerular Filtration Rate > 60, Glucose Level 109H , Calcium Level 8.1L 08/26/20 05:36: POC Whole Blood Glucose 101 08/26/20 12:36: POC Whole Blood Glucose [Pending] Current Medications Medications (Trade) Dose Ordered Sig/Amaya Route PRN Reason Start Time Stop Time Status Last Admin Dose Admin Acetaminophen (Tylenol) 650 mg Q4H PRN ORAL Temp >100.5 08/17/20 19:45 09/16/20 19:44 Albuterol/ Ipratropium (Combivent Respimat) 1 puff Q4H PRN INH Shortness of Breath 08/18/20 13:00 09/17/20 12:59 Apixaban (Eliquis) 5 mg BID ORAL 08/18/20 18:00 11/16/20 17:59 08/26/20 09:29 Dextrose (Dextrose 50%) 25 ml Q30M PRN IV Hypoglycemia 08/18/20 11:45 11/16/20 11:44 Dextrose (Dextrose 50%) 50 ml Q30M PRN IV Hypoglycemia 08/18/20 11:45 11/16/20 11:44 Insulin Aspart (NovoLOG) BEFORE MEALS AND HS SUBQ 08/18/20 16:30 11/16/20 16:29 08/26/20 13:30 Ondansetron HCl (Zofran) 4 mg Q6H PRN IVP Nausea & Vomiting 08/17/20 19:45 09/16/20 19:44 Pantoprazole (Protonix) 40 mg DAILY ORAL 08/18/20 09:00 09/17/20 08:59 08/26/20 09:29 Polyethylene Glycol (Miralax) 17 gm DAILYPRN PRN ORAL Constipation 08/17/20 19:45 09/16/20 19:44 08/19/20 17:56 Promethazine HCl/ Codeine (Phenergan with Codeine) 5 ml Q6H PRN ORAL cough 08/17/20 19:45 09/16/20 19:44 Sodium Chloride 1,000 ml @ 50 mls/hr Q20H IV 08/18/20 18:30 09/17/20 18:29 08/26/20 05:38 Tamsulosin HCl (Flomax) 0.4 mg BID ORAL 08/18/20 09:00 09/17/20 08:59 08/26/20 09:29 Assessment/Plan Problems: (1) Nosocomial pneumonia (2) Hypoxia (3) 2019 novel coronavirus detected (4) CVA, old, hemiparesis (5) Hypertension (6) Diabetes mellitus (7) BPH (benign prostatic hyperplasia) Assessment/Plan cxr from 08/22: New or markedly worsened bilateral infiltrates, since prior exam of 5 days earlier 08/26 Suspect slight worsening of right lung infiltrates. no new complains all reviewed doing better respiratory isolation steroids and Remdesevir titrate fio2 to sat of 92% iv abx check inflammatory markers sliding scale diabetic diet repeat CXR pending Angelita Alarcon MD Aug 26, 2020 15:49
[2020-08-26 16:00] VITALS: BP 133/55
--- NOTE | 2020-08-26 16:16 | Infectious Diseases Prog Note ---
Assessment/Plan 84yo M with: Afebrile Normal WBC Lymphopenia COVID pneumonia, severe Acute hypoxic resp failure 2/2 COVID pna UTI/cystitis 08/17 BCx NTD UCx +ESBL E.coli CXR: No significant change in tortuosity/ectasia of the thoracic aorta. Negative for cardiac enlargement. Negative for focal consolidation, pneumothorax or pleural fluid collections. COVID rapid test positive, PCR positive 08/22 CXR: New or markedly worsened bilateral infiltrates, since prior exam of 5 days earlier Cr 1.8, improving 08/19 Renal US: Negative for hydronephrosis. 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 Bilateral renal cysts, large on the right. Plan: Cont dexamethasone 6mg daily #10 08/24 SP RDV #5, ertapenem #5 for UTI 08/23 SP Azithro #5 Convalescent plasma unfortunately not available at this institution so unable to give, additionally unclear if it improves mortality/outcomes or not Monitor CBC/CMP Monitor temp curve, hemodynamics Monitor resp status D/w RN Thank you for this consult. [facility] will continue to follow. Subjective Allergies: Coded Allergies: No Known Allergies (Unverified , 01/04/19) AF NAD on NRB mask now WBC 14.9 Feels breathing is stable Objective Last 24 Hour Vital Signs Date Time Temp Pulse Resp B/P (MAP) Pulse Ox O2 Delivery O2 Flow Rate FiO2 08/26/20 09:00 Non-Rebreather 15.0 08/26/20 08:00 97.5 58 20 112/70 (84) 92 08/26/20 04:00 97.0 50 22 112/50 (70) 95 08/26/20 04:00 46 08/26/20 00:00 50 08/26/20 00:00 97.5 51 22 105/59 (74) 97 08/25/20 21:00 Non-Rebreather 15.0 08/25/20 20:00 78 Height (Feet): 5 Height (Inches): 8.00 Weight (Pounds): 163 Gen: NAD HEENT: NCAT Pulm: BL chest rise Abd: Non-distended Ext: No c/c/e Skin: No visible rashes Neuro: Awake, interactive Laboratory Tests Test 08/26/20 04:30 08/26/20 05:36 08/26/20 12:36 White Blood Count 14.9 K/UL (4.8-10.8) H Red Blood Count 4.72 M/UL (4.70-6.10) Hemoglobin 12.9 G/DL (14.2-18.0) L Hematocrit 38.4 % (42.0-52.0) L Mean Corpuscular Volume 81 FL (80-99) Mean Corpuscular Hemoglobin 27.3 PG (27.0-31.0) Mean Corpuscular Hemoglobin Concent 33.5 G/DL (32.0-36.0) Red Cell Distribution Width 14.0 % (11.6-14.8) Platelet Count 206 K/UL (150-450) Mean Platelet Volume 6.8 FL (6.5-10.1) Neutrophils (%) (Auto) % (45.0-75.0) Lymphocytes (%) (Auto) % (20.0-45.0) Monocytes (%) (Auto) % (1.0-10.0) Eosinophils (%) (Auto) % (0.0-3.0) Basophils (%) (Auto) % (0.0-2.0) Differential Total Cells Counted 100 Neutrophils % (Manual) 89 % (45-75) H Lymphocytes % (Manual) 5 % (20-45) L Monocytes % (Manual) 6 % (1-10) Eosinophils % (Manual) 0 % (0-3) Basophils % (Manual) 0 % (0-2) Band Neutrophils 0 % (0-8) Platelet Estimate Adequate Platelet Morphology Normal Red Blood Cell Morphology Normal Sodium Level 144 MMOL/L (136-145) Potassium Level 4.2 MMOL/L (3.5-5.1) Chloride Level 113 MMOL/L (98-107) H Carbon Dioxide Level 25 MMOL/L (21-32) Anion Gap 6 mmol/L (5-15) Blood Urea Nitrogen 28 mg/dL (7-18) H Creatinine 1.0 MG/DL (0.55-1.30) Estimat Glomerular Filtration Rate > 60 mL/min (>60) Glucose Level 109 MG/DL (74-106) H Calcium Level 8.1 MG/DL (8.5-10.1) L POC Whole Blood Glucose 101 MG/DL (74-106) Pending Current Medications Medications (Trade) Dose Ordered Sig/Amaya Route PRN Reason Start Time Stop Time Status Last Admin Dose Admin Acetaminophen (Tylenol) 650 mg Q4H PRN ORAL Temp >100.5 08/17/20 19:45 09/16/20 19:44 Albuterol/ Ipratropium (Combivent Respimat) 1 puff Q4H PRN INH Shortness of Breath 08/18/20 13:00 09/17/20 12:59 Apixaban (Eliquis) 5 mg BID ORAL 08/18/20 18:00 11/16/20 17:59 08/26/20 09:29 Dextrose (Dextrose 50%) 25 ml Q30M PRN IV Hypoglycemia 08/18/20 11:45 11/16/20 11:44 Dextrose (Dextrose 50%) 50 ml Q30M PRN IV Hypoglycemia 08/18/20 11:45 11/16/20 11:44 Insulin Aspart (NovoLOG) BEFORE MEALS AND HS SUBQ 08/18/20 16:30 11/16/20 16:29 08/26/20 13:30 Ondansetron HCl (Zofran) 4 mg Q6H PRN IVP Nausea & Vomiting 08/17/20 19:45 09/16/20 19:44 Pantoprazole (Protonix) 40 mg DAILY ORAL 08/18/20 09:00 09/17/20 08:59 08/26/20 09:29 Polyethylene Glycol (Miralax) 17 gm DAILYPRN PRN ORAL Constipation 08/17/20 19:45 09/16/20 19:44 08/19/20 17:56 Promethazine HCl/ Codeine (Phenergan with Codeine) 5 ml Q6H PRN ORAL cough 08/17/20 19:45 09/16/20 19:44 Sodium Chloride 1,000 ml @ 50 mls/hr Q20H IV 08/18/20 18:30 09/17/20 18:29 08/26/20 05:38 Tamsulosin HCl (Flomax) 0.4 mg BID ORAL 08/18/20 09:00 09/17/20 08:59 08/26/20 09:29 Aneta Nguyen M.D. Aug 26, 2020 16:16
--- NOTE | 2020-08-26 19:10 | NUR ---
NURSE NOTES: Important Events on Shift: Received report from from Linda Trinidad RN. Pt in stable condition, denies pain at this time. No signs or symptoms of distress noted. Will continue to monitor closely. Will continue plan of care. Patient Status: stable throughout shift per report Diet: cardiac Pending Orders: none Pending Results/Labs: none Pending MD notification: none Latest Vital Signs: Temperature 97.5 , Pulse 66 , B/P 133 /55 , Respiratory Rate 24 , O2 SAT 95 , Nasal Cannula, O2 Flow Rate 15.0 . Vital Sign Comment: stable throughout shift per report EKG Rhythm: Sinus Rhythm Rhythm change?: N Notified?: N -Dr. Sacha GLASS Response: No New Orders Received Latest Wong Fall Score: 40 Fall Risk: Medium Risk Safety Measures: Call light Within Reach, Bed Alarm Zone 1, Side Rails Side Rails x2, Bed position Low and Locked. Fall Precautions: YES Yellow Socks YES Yellow Gown YES Patient Fall Education YES
[2020-08-26 20:00] VITALS: BP 155/60
--- NOTE | 2020-08-26 20:07 | NUR ---
NURSE HAND-OFF REPORT: Important Events on Shift:[]pt received bk but not alarm mechanic today, he is in stable condition but keeps taking off his mask Patient Status: [] full Diet: []cardiac Pending Orders: [] Pending Results/Labs:[] Pending MD notification:[] Latest Vital Signs: Temperature 97.5 , Pulse 66 , B/P 133 /55 , Respiratory Rate 24 , O2 SAT 95 , Nasal Cannula, O2 Flow Rate 15.0 . Vital Sign Comment: [] EKG Rhythm: Sinus Rhythm Rhythm change?: N MD Notified?: N -Dr. Sacha GLASS Response: No New Orders Received Latest Wong Fall Score: 40 Fall Risk: Medium Risk Safety Measures: Call light Within Reach, Bed Alarm Zone 1, Side Rails Side Rails x2, Bed position Low and Locked. Fall Precautions: y Yellow Socks y Yellow Gown y Patient Fall Education y Report given to [].Esequiel/BRYAN
[2020-08-27] VITALS: BP 118/66
[2020-08-27 04:00] VITALS: BP 129/60
[2020-08-27] MEDS: NovoLOG Insulin Flexpen SUBQ SCH ×4 (06:30→21:00)
--- NOTE | 2020-08-27 06:40 | NUR ---
NURSE HAND-OFF REPORT: Important Events on Shift: Pt moved from 219-2 to 201-1 without complications. Patient Status: stable throughout shift Diet: Cardiac Pending Orders: none Pending Results/Labs: none Pending MD notification: none Latest Vital Signs: Temperature 97.7 , Pulse 60 , B/P 129 /60 , Respiratory Rate 24 , O2 SAT 95 , Nasal Cannula, O2 Flow Rate 15.0 . Vital Sign Comment: EKG Rhythm: SB w/BBB Rhythm change?: N MD Notified?: N -Dr. Sacha GLASS Response: No New Orders Received Latest Wong Fall Score: 40 Fall Risk: Medium Risk Safety Measures: Call light Within Reach, Bed Alarm Zone 1, Side Rails Side Rails x2, Bed position Low and Locked. Fall Precautions: Yellow Socks yes Yellow Gown yes Patient Fall Education yes Report to given to Linda Trinidad RN .
--- NOTE | 2020-08-27 07:19 | NUR ---
NURSE NOTES: pt. is in bed about to have breakfast. pt on youth nutritional monitor no signs of cardiac distress at this time. Pt is not complaining of pain. Bed is locked and in lowest position. Call light within reach. Will continue to monitor.
[2020-08-27 08:00] VITALS: BP 138/61
--- NOTE | 2020-08-27 08:11 | NUR ---
RD ASSESSMENT & RECOMMENDATIONS SEE CARE ACTIVITY FOR COMPLETE ASSESSMENT DAILY ESTIMATED NEEDS: Needs based on DM, pulmonary 74kg 25-35 kcals/kg 2000-9929 total kcals 1.25-1.5 g protein/kg 93-111 g total protein 20-25 mL/kg 0335-6716 total fluid mLs NUTRITION DIAGNOSIS: Altered nutrition related lab values r/t hyperglycemia as evidenced by A1C 6.1, BG 149-155, elevated POC (166-182). (CURRENT DIET: Cardiac soft easy chew) PO DIET RECOMMENDATIONS-->>> CCHO MED / LOW NA ADDITIONAL RECOMMENDATIONS: 1) Maintain daily calibrated bed scale wts 2) Diet recs as above 3) Monitor for need for texture modifications (currently on soft easy chew) 4) Snacks as tolerated w/ current variable po intake Add GLUCERNA TID w trays 5) As tolerated rec FANINE FRUIT PUNCH in 8oz water BID for skin integrity
[2020-08-27] MEDS: Tamsulosin 0.4mg cap ORAL SCH ×2 (10:15→18:17)
[2020-08-27] MEDS: Eliquis 5mg tablet ORAL SCH ×2 (10:15→18:17)
--- NOTE | 2020-08-27 10:25 | NUR ---
NURSE NOTES: turned pt and repositioned again, however he keeps complaining he is not comfortable and he is not happy. explained to pt he needs to be turned q 2hrs to prevent skin tear down. He understands but he is still not happy.
--- NOTE | 2020-08-27 10:53 | Pulmonology Progress Note ---
Subjective ROS Limited/Unobtainable: No HEENT: Repors: no symptoms Respiratory: Reports: no symptoms Allergies: Coded Allergies: No Known Allergies (Unverified , 01/04/19) Objective Last 24 Hour Vital Signs Date Time Temp Pulse Resp B/P (MAP) Pulse Ox O2 Delivery O2 Flow Rate FiO2 08/27/20 09:30 94 Non-Rebreather 15.0 100 08/27/20 08:00 96.1 70 20 138/61 (86) 95 08/27/20 04:00 97.7 60 24 129/60 (83) 95 08/27/20 04:00 46 08/27/20 00:00 97.7 53 24 118/66 (83) 94 08/27/20 00:00 52 08/26/20 21:00 Non-Rebreather 15.0 08/26/20 20:09 94 Non-Rebreather 15.0 100 08/26/20 20:00 97.9 63 24 155/60 (91) 94 08/26/20 20:00 63 08/26/20 16:00 97.5 62 24 133/55 (81) 95 08/26/20 16:00 66 08/26/20 12:00 97.5 57 24 122/47 (72) 92 08/26/20 12:00 83 Intake and Output0 08/26/20 08/27/20 18:59 06:59 # Voids 1 # Bowel Movements 1 General Appearance: WD/WN HEENT: normocephalic, atraumatic, other - O2 Respiratory: chest wall non-tender, rhonchi - bilaterally - scattered Cardiovascular: normal peripheral pulses, normal rate, regular rhythm Abdomen: normal bowel sounds, soft, non tender Genitourinary: normal external genitalia Extremities: no clubbing Neurologic: alert, responsive, other - R side paresis Musculoskeletal: atrophy - BLE Laboratory Tests 08/26/20 12:36: POC Whole Blood Glucose [Pending] 08/26/20 17:18: POC Whole Blood Glucose [Pending] 08/26/20 21:29: POC Whole Blood Glucose 187H Current Medications Medications (Trade) Dose Ordered Sig/Amaya Route PRN Reason Start Time Stop Time Status Last Admin Dose Admin Acetaminophen (Tylenol) 650 mg Q4H PRN ORAL Temp >100.5 08/17/20 19:45 09/16/20 19:44 Albuterol/ Ipratropium (Combivent Respimat) 1 puff Q4H PRN INH Shortness of Breath 08/18/20 13:00 09/17/20 12:59 Apixaban (Eliquis) 5 mg BID ORAL 08/18/20 18:00 11/16/20 17:59 08/27/20 10:15 Dextrose (Dextrose 50%) 25 ml Q30M PRN IV Hypoglycemia 08/18/20 11:45 11/16/20 11:44 Dextrose (Dextrose 50%) 50 ml Q30M PRN IV Hypoglycemia 08/18/20 11:45 11/16/20 11:44 Insulin Aspart (NovoLOG) BEFORE MEALS AND HS SUBQ 08/18/20 16:30 11/16/20 16:29 08/26/20 21:00 Ondansetron HCl (Zofran) 4 mg Q6H PRN IVP Nausea & Vomiting 08/17/20 19:45 09/16/20 19:44 Pantoprazole (Protonix) 40 mg DAILY ORAL 08/18/20 09:00 09/17/20 08:59 08/27/20 10:15 Polyethylene Glycol (Miralax) 17 gm DAILYPRN PRN ORAL Constipation 08/17/20 19:45 09/16/20 19:44 08/19/20 17:56 Promethazine HCl/ Codeine (Phenergan with Codeine) 5 ml Q6H PRN ORAL cough 08/17/20 19:45 09/16/20 19:44 Sodium Chloride 1,000 ml @ 50 mls/hr Q20H IV 08/18/20 18:30 09/17/20 18:29 08/27/20 02:57 Tamsulosin HCl (Flomax) 0.4 mg BID ORAL 08/18/20 09:00 09/17/20 08:59 08/27/20 10:15 Assessment/Plan Problems: (1) Nosocomial pneumonia (2) Hypoxia (3) 2019 novel coronavirus detected (4) CVA, old, hemiparesis (5) Hypertension (6) Diabetes mellitus (7) BPH (benign prostatic hyperplasia) Assessment/Plan wbc still high cxr from 08/22: New or markedly worsened bilateral infiltrates, since prior exam of 5 days earlier 08/26 Suspect slight worsening of right lung infiltrates. respiratory isolation off steroids and Remdesevir titrate fio2 to sat of 92% check inflammatory markers sliding scale diabetic diet repeat CXR pending Angelita Alarcon MD Aug 27, 2020 10:53
--- NOTE | 2020-08-27 11:01 | Cardiac Electrophysiology PN ---
Assessment/Plan Assessment/Plan 1. COVID-19 pneumonia. S/P Remdesevir, ceftriaxone, albuterol, dexamethasone and apixaban. On 14 liter VM 2. Hypertension. Stable off antihypertensive agents. 3. Diabetes. 4. History of CVA with hemiparesis. 5. Benign prostatic hypertrophy. 6. Neno with HR high 40s, likely due to Covid. Asymptomatic DW RN Subjective Subjective Alert in NAD on 14 liter VM in Covid isolation reading book. HR high 40s. Objective Last 24 Hour Vital Signs Date Time Temp Pulse Resp B/P (MAP) Pulse Ox O2 Delivery O2 Flow Rate FiO2 08/27/20 09:30 94 Non-Rebreather 15.0 100 08/27/20 08:00 96.1 70 20 138/61 (86) 95 08/27/20 04:00 97.7 60 24 129/60 (83) 95 08/27/20 04:00 46 08/27/20 00:00 97.7 53 24 118/66 (83) 94 08/27/20 00:00 52 08/26/20 21:00 Non-Rebreather 15.0 08/26/20 20:09 94 Non-Rebreather 15.0 100 08/26/20 20:00 97.9 63 24 155/60 (91) 94 08/26/20 20:00 63 08/26/20 16:00 97.5 62 24 133/55 (81) 95 08/26/20 16:00 66 08/26/20 12:00 97.5 57 24 122/47 (72) 92 08/26/20 12:00 83 Intake and Output 08/26/20 08/27/20 19:00 07:00 # Voids 1 # Bowel Movements 1 Laboratory Tests Test 08/26/20 12:36 08/26/20 17:18 08/26/20 21:29 POC Whole Blood Glucose Pending Pending 187 MG/DL (74-106) H Objective HEAD AND NECK: No JVD. LUNGS: Coarse rhonchi. CARDIOVASCULAR: Regular S1 and S2 with no gallop or murmur. ABDOMEN: Soft. EXTREMITIES: No pitting edema. Sabino Goncalves MD Aug 27, 2020 11:01
[2020-08-27 12:00] VITALS: BP_SYST 138; BP_DIAS 61; BP_DIAS 98
--- NOTE | 2020-08-27 12:09 | NUR ---
NURSE NOTES: reported latest labs to doctor Priscila and (Fang is covering for [place]).
--- NOTE | 2020-08-27 14:11 | Nephrology Progress Note ---
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 Hypertension Diabetes, hypoalbuminemia BPH Plan August 27: No labs drawn today. Continue per consultants. Will check lab in a.m. August 26: White blood cells 14.9. Renal parameters stable. Continue per consultants. August 25: [place] [address]. Renal parameters stable. August 24: Status quo. No labs drawn today. Will check lab tomorrow. August 23: Status quo. Labs reviewed. Renal parameters are stable. Continue per consultants. August 22: Status quo. Stable renal parameters. Continue per consultants. August 21: Labs were reviewed. Renal parameters are stable. Continue per consultants. August 20: Labs reviewed. Creatinine now normalized. Electrolytes within normal limit. Continue per consultants. Antibiotics Slow hydrate with normal saline Monitor renal parameters Keep the blood pressure blood sugar in check Per orders Subjective ROS Limited/Unobtainable: No Constitutional: Reports: malaise Objective Objective Last 24 Hour Vital Signs Date Time Temp Pulse Resp B/P (MAP) Pulse Ox O2 Delivery O2 Flow Rate FiO2 08/27/20 12:00 56 08/27/20 12:00 96.4 69 19 138/98 (111) 94 08/27/20 12:00 96.1 70 20 138/61 (86) 95 08/27/20 09:30 94 Non-Rebreather 15.0 100 08/27/20 09:00 Non-Rebreather 15.0 08/27/20 08:00 53 08/27/20 08:00 96.1 70 20 138/61 (86) 95 08/27/20 04:00 97.7 60 24 129/60 (83) 95 08/27/20 04:00 46 08/27/20 00:00 97.7 53 24 118/66 (83) 94 08/27/20 00:00 52 08/26/20 21:00 Non-Rebreather 15.0 08/26/20 20:09 94 Non-Rebreather 15.0 100 08/26/20 20:00 97.9 63 24 155/60 (91) 94 08/26/20 20:00 63 08/26/20 16:00 97.5 62 24 133/55 (81) 95 08/26/20 16:00 66 Intake and Output 08/26/20 08/27/20 19:00 07:00 # Voids 1 # Bowel Movements 1 Laboratory Tests 08/26/20 17:18: POC Whole Blood Glucose [Pending] 08/26/20 21:29: POC Whole Blood Glucose 187H Height (Feet): 5 Height (Inches): 8.00 Weight (Pounds): 163 General Appearance: no apparent distress EENT: other - On nonrebreather mask Cardiovascular: arrhythmia, other - Variable at times bradycardic Respiratory/Chest: decreased breath sounds Abdomen: distended Devonte Zuniga MD Aug 27, 2020 14:11
[2020-08-27 16:00] VITALS: BP 144/64
--- NOTE | 2020-08-27 19:27 | NUR ---
NURSE HAND-OFF REPORT: Important Events on Shift:[] pt has TID glucerna, one per meal. pt does not like to be reposition Patient Status: []full code Diet: []cardiac Pending Orders: [] Pending Results/Labs:[] Pending MD notification:[] Latest Vital Signs: Temperature 96.8 , Pulse 61 , B/P 144 /64 , Respiratory Rate 20 , O2 SAT 95 , Nasal Cannula, O2 Flow Rate 15.0 . Vital Sign Comment: [] EKG Rhythm: SB w/BBB Rhythm change?: N MD Notified?: N -Dr. Sacha GLASS Response: No New Orders Received Latest Wong Fall Score: 40 Fall Risk: Medium Risk Safety Measures: Call light Within Reach, Bed Alarm Zone 1, Side Rails Side Rails x2, Bed position Low and Locked. Fall Precautions: y Yellow Socks y Yellow Gown y Patient Fall Education y Report given to [].Esequiel/BRYAN
--- NOTE | 2020-08-27 19:30 | NUR ---
NURSE NOTES: Important Events on Shift: Received report from Linda Trinidad RN. Pt in bed, droplet and contact isolation in place, denies pain, no complaints. Per report, pt did not eat dinner and ate about 25% lunch. Will monitor glucose levels closely. Will continue to monitor pt closely. Will continue plan of care. Patient Status: stable throughout shift Diet: cardiac Pending Orders: New TID glucerna Pending Results/Labs: AM labs Pending MD notification: none Latest Vital Signs: Temperature 96.8 , Pulse 61 , B/P 144 /64 , Respiratory Rate 20 , O2 SAT 95 , Nasal Cannula, O2 Flow Rate 15.0 . Vital Sign Comment: EKG Rhythm: SB w/BBB Rhythm change?: N MD Notified?: N -Dr. Sacha GLASS Response: No New Orders Received Latest Wong Fall Score: 40 Fall Risk: Medium Risk Safety Measures: Call light Within Reach, Bed Alarm Zone 1, Side Rails Side Rails x2, Bed position Low and Locked. Fall Precautions: YES Yellow Socks YES Yellow Gown YES Patient Fall Education YES .
[2020-08-27 20:00] VITALS: BP 138/55
--- NOTE | 2020-08-27 21:37 | General Progress Note ---
Subjective ROS Limited/Unobtainable: Yes Allergies: Coded Allergies: No Known Allergies (Unverified , 01/04/19) Objective Last 24 Hour Vital Signs Date Time Temp Pulse Resp B/P (MAP) Pulse Ox O2 Delivery O2 Flow Rate FiO2 08/27/20 16:00 61 08/27/20 16:00 96.8 64 20 144/64 (90) 95 08/27/20 12:00 56 08/27/20 12:00 96.4 69 19 138/98 (111) 94 08/27/20 12:00 96.1 70 20 138/61 (86) 95 08/27/20 09:30 94 Non-Rebreather 15.0 100 08/27/20 09:00 Non-Rebreather 15.0 08/27/20 08:00 53 08/27/20 08:00 96.1 70 20 138/61 (86) 95 08/27/20 04:00 97.7 60 24 129/60 (83) 95 08/27/20 04:00 46 08/27/20 00:00 97.7 53 24 118/66 (83) 94 08/27/20 00:00 52 Intake and Output 08/26/20 08/27/20 19:00 07:00 # Voids 1 # Bowel Movements 1 Laboratory Tests 08/27/20 16:46: POC Whole Blood Glucose 157H Height (Feet): 5 Height (Inches): 8.00 Weight (Pounds): 163 Assessment/Plan Problem List: (1) Renal failure (ARF), acute on chronic ICD Codes: N17.9 - Acute kidney failure, unspecified; N18.9 - Chronic kidney disease, unspecified SNOMED: 953940715 (2) Diabetes mellitus ICD Codes: E11.9 - Type 2 diabetes mellitus without complications SNOMED: 21408636 (3) Sepsis due to urinary tract infection ICD Codes: A41.9 - Sepsis, unspecified organism; N39.0 - Urinary tract infection, site not specified SNOMED: 799695717 (4) Episode of generalized weakness ICD Codes: R53.1 - Weakness SNOMED: 71345043 (5) Renal failure (ARF), acute on chronic ICD Codes: N17.9 - Acute kidney failure, unspecified; N18.9 - Chronic kidney disease, unspecified SNOMED: 281595208 (6) CVA, old, hemiparesis ICD Codes: I69.359 - Hemiplegia and hemiparesis following cerebral infarction affecting unspecified side SNOMED: 993327444 (7) Hypoxia ICD Codes: R09.02 - Hypoxemia SNOMED: 558755701 (8) 2019 novel coronavirus detected ICD Codes: U07.1 - COVID-19 SNOMED: 0849314529307872 (9) BPH (benign prostatic hyperplasia) ICD Codes: N40.0 - Benign prostatic hyperplasia without lower urinary tract symptoms SNOMED: 768067869 Status: progressing, unchanged Assessment/Plan: covid + dehydration azotmia improving azotemia cva check labs and meds Jose David Headley MD Aug 27, 2020 21:37
[2020-08-28] VITALS: BP 108/54
[2020-08-28 04:00] VITALS: BP 137/55
[2020-08-28] MEDS: NovoLOG Insulin Flexpen SUBQ SCH ×4 (06:30→21:00)
[2020-08-28 07:06] LABS: HEMOGLOBIN 13.6 G/DL (14.2-18.0); MEAN CORPUSCULAR VOLUME 80 FL (80-99); PLATELET COUNT 168 K/UL (150-450); RED BLOOD COUNT 5.02 M/UL (4.70-6.10); RED CELL DISTRIBUTION WIDTH 13.7 % (11.6-14.8); WHITE BLOOD COUNT 13.4 K/UL (4.8-10.8)
--- NOTE | 2020-08-28 07:40 | NUR ---
cASE MANAGEMENT:REVIEW 08/28/20 SI: COVID INFECTION. HYPOXIA 96.5 68 22 137/55 92- 95% ON 15L NRB WBC+13.4 IS: IVF@50/HR ELIQUIS PO BID FLOMAX PO BID PROTONIX PO QD : TELEMETRY STATUS DCP: FROM [facility] PLAN: TITRATE OXYGEN SAT 92%
--- NOTE | 2020-08-28 07:52 | NUR ---
NURSE HAND-OFF REPORT: Important Events on Shift: none Patient Status: stable, full code Diet: cardiac, need set up assist Pending Orders: none Pending Results/Labs: AM labs Pending MD notification: none Latest Vital Signs: Temperature 96.5 , Pulse 83 , B/P 137 /55 , Respiratory Rate 22 , O2 SAT 95 , Nasal Cannula, O2 Flow Rate 15.0 . Vital Sign Comment: EKG Rhythm: Sinus Rhythm Rhythm change?: N MD Notified?: N -Dr. Sacha GLASS Response: No New Orders Received Latest Wong Fall Score: 40 Fall Risk: Medium Risk Safety Measures: Call light Within Reach, Bed Alarm Zone 1, Side Rails Side Rails x2, Bed position Low and Locked. Fall Precautions: YES Yellow Socks YES Yellow Gown YES Patient Fall Education YES Report given to ARCHIE Irving RN.
[2020-08-28 07:58] LABS: ALANINE AMINOTRANSFERASE 9 U/L (12-78); ALBUMIN 1.8 G/DL (3.4-5.0); ALBUMIN/GLOBULIN RATIO 0.5 (1.0-2.7); ALKALINE PHOSPHATASE 76 U/L (46-116); ANION GAP 4 mmol/L (5-15); ASPARTATE AMINO TRANSFERASE 15 U/L (15-37); BILIRUBIN,TOTAL 0.7 MG/DL (0.2-1.0); BLOOD UREA NITROGEN 24 mg/dL (7-18); CALCIUM 7.7 MG/DL (8.5-10.1); CARBON DIOXIDE 26 MMOL/L (21-32); CHLORIDE 112 MMOL/L (98-107); CREATININE 0.8 MG/DL (0.55-1.30); PHOSPHORUS 2.2 MG/DL (2.5-4.9); POTASSIUM 3.9 MMOL/L (3.5-5.1); SODIUM 142 MMOL/L (136-145)
[2020-08-28 08:00] VITALS: BP 117/66
--- NOTE | 2020-08-28 08:08 | NUR ---
NURSE NOTES: Patient sitting up in bed, awake and alert, side rails up x 3, on 15 liters simple mask saturating at 90 percent. Respiratory therapistNorma in room with patient, bed in lowest position, call light within reach. Placing order for ABG.
--- NOTE | 2020-08-28 08:52 | Infectious Diseases Prog Note ---
Assessment/Plan 84yo M with: Afebrile Normal WBC Lymphopenia COVID pneumonia, severe Acute hypoxic resp failure 2/2 COVID pna UTI/cystitis 08/17 BCx NTD UCx +ESBL E.coli CXR: No significant change in tortuosity/ectasia of the thoracic aorta. Negative for cardiac enlargement. Negative for focal consolidation, pneumothorax or pleural fluid collections. COVID rapid test positive, PCR positive 08/22 CXR: New or markedly worsened bilateral infiltrates, since prior exam of 5 days earlier Cr 1.8, improving 08/19 Renal US: Negative for hydronephrosis. 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 Bilateral renal cysts, large on the right. Plan: Start Zosyn given worsening resp status Resp cx if able CXR Recommend diuresis, BNP >7000k 08/27 SP dex #10 08/24 SP RDV #5, ertapenem #5 for UTI 08/23 SP Azithro #5 Convalescent plasma unfortunately not available at this institution so unable to give, additionally unclear if it improves mortality/outcomes or not Monitor CBC/CMP Monitor temp curve, hemodynamics Monitor resp status D/w RN Thank you for this consult. [facility] will continue to follow. Subjective Allergies: Coded Allergies: No Known Allergies (Unverified , 01/04/19) AF Desatting on simple face mask to 85% Placed on NRB, satting 91% BNP >7000 No secretions for resp cx Objective Last 24 Hour Vital Signs Date Time Temp Pulse Resp B/P (MAP) Pulse Ox O2 Delivery O2 Flow Rate FiO2 08/28/20 08:00 98.1 84 20 117/66 (83) 94 08/28/20 04:00 83 08/28/20 04:00 96.5 68 22 137/55 (82) 95 08/28/20 00:00 96.3 74 22 108/54 (72) 92 08/27/20 21:00 Non-Rebreather 15.0 08/27/20 20:00 92 Non-Rebreather 15.0 100 08/27/20 20:00 97.5 64 22 138/55 (82) 95 08/27/20 20:00 67 08/27/20 16:00 61 08/27/20 16:00 96.8 64 20 144/64 (90) 95 08/27/20 12:00 56 08/27/20 12:00 96.4 69 19 138/98 (111) 94 08/27/20 12:00 96.1 70 20 138/61 (86) 95 08/27/20 09:30 94 Non-Rebreather 15.0 100 08/27/20 09:00 Non-Rebreather 15.0 Height (Feet): 5 Height (Inches): 8.00 Weight (Pounds): 163 Gen: NAD HEENT: NCAT Pulm: BL chest rise Abd: Non-distended Ext: No c/c/e Skin: No visible rashes Neuro: Awake, interactive Laboratory Tests Test 08/27/20 16:46 08/27/20 22:16 08/28/20 05:33 POC Whole Blood Glucose 157 MG/DL (74-106) H 126 MG/DL (74-106) H White Blood Count 13.4 K/UL (4.8-10.8) H Red Blood Count 5.02 M/UL (4.70-6.10) Hemoglobin 13.6 G/DL (14.2-18.0) L Hematocrit 40.0 % (42.0-52.0) L Mean Corpuscular Volume 80 FL (80-99) Mean Corpuscular Hemoglobin 27.2 PG (27.0-31.0) Mean Corpuscular Hemoglobin Concent 34.1 G/DL (32.0-36.0) Red Cell Distribution Width 13.7 % (11.6-14.8) Platelet Count 168 K/UL (150-450) Mean Platelet Volume 7.3 FL (6.5-10.1) Neutrophils (%) (Auto) % (45.0-75.0) Lymphocytes (%) (Auto) % (20.0-45.0) Monocytes (%) (Auto) % (1.0-10.0) Eosinophils (%) (Auto) % (0.0-3.0) Basophils (%) (Auto) % (0.0-2.0) Neutrophils % (Manual) Pending Lymphocytes % (Manual) Pending Platelet Estimate Pending Platelet Morphology Pending Sodium Level 142 MMOL/L (136-145) Potassium Level 3.9 MMOL/L (3.5-5.1) Chloride Level 112 MMOL/L (98-107) H Carbon Dioxide Level 26 MMOL/L (21-32) Anion Gap 4 mmol/L (5-15) L Blood Urea Nitrogen 24 mg/dL (7-18) H Creatinine 0.8 MG/DL (0.55-1.30) Estimat Glomerular Filtration Rate > 60 mL/min (>60) Glucose Level 98 MG/DL (74-106) Calcium Level 7.7 MG/DL (8.5-10.1) L Phosphorus Level 2.2 MG/DL (2.5-4.9) L Magnesium Level 1.7 MG/DL (1.8-2.4) L Total Bilirubin 0.7 MG/DL (0.2-1.0) Aspartate Amino Transf (AST/SGOT) 15 U/L (15-37) Alanine Aminotransferase (ALT/SGPT) 9 U/L (12-78) L Alkaline Phosphatase 76 U/L (46-116) C-Reactive Protein, Quantitative 9.6 mg/dL (0.00-0.90) H Pro-B-Type Natriuretic Peptide 7016 pg/mL (0-125) H Total Protein 5.1 G/DL (6.4-8.2) L Albumin 1.8 G/DL (3.4-5.0) L Globulin 3.3 g/dL Albumin/Globulin Ratio 0.5 (1.0-2.7) L Current Medications Medications (Trade) Dose Ordered Sig/Amaya Route PRN Reason Start Time Stop Time Status Last Admin Dose Admin Acetaminophen (Tylenol) 650 mg Q4H PRN ORAL Temp >100.5 08/17/20 19:45 09/16/20 19:44 Albuterol/ Ipratropium (Combivent Respimat) 1 puff Q4H PRN INH Shortness of Breath 08/18/20 13:00 09/17/20 12:59 Apixaban (Eliquis) 5 mg BID ORAL 08/18/20 18:00 11/16/20 17:59 08/27/20 18:17 Dextrose (Dextrose 50%) 25 ml Q30M PRN IV Hypoglycemia 08/18/20 11:45 11/16/20 11:44 Dextrose (Dextrose 50%) 50 ml Q30M PRN IV Hypoglycemia 08/18/20 11:45 11/16/20 11:44 Insulin Aspart (NovoLOG) BEFORE MEALS AND HS SUBQ 08/18/20 16:30 11/16/20 16:29 08/26/20 21:00 Ondansetron HCl (Zofran) 4 mg Q6H PRN IVP Nausea & Vomiting 08/17/20 19:45 09/16/20 19:44 Pantoprazole (Protonix) 40 mg DAILY ORAL 08/18/20 09:00 09/17/20 08:59 08/27/20 10:15 Polyethylene Glycol (Miralax) 17 gm DAILYPRN PRN ORAL Constipation 08/17/20 19:45 09/16/20 19:44 08/19/20 17:56 Promethazine HCl/ Codeine (Phenergan with Codeine) 5 ml Q6H PRN ORAL cough 08/17/20 19:45 09/16/20 19:44 Sodium Chloride 1,000 ml @ 50 mls/hr Q20H IV 08/18/20 18:30 09/17/20 18:29 08/27/20 23:27 Tamsulosin HCl (Flomax) 0.4 mg BID ORAL 08/18/20 09:00 09/17/20 08:59 08/27/20 18:17 Aneta Nguyen M.D. Aug 28, 2020 08:52
[2020-08-28] MEDS: Eliquis 5mg tablet ORAL SCH ×2 (08:55→17:12)
[2020-08-28] MEDS: Tamsulosin 0.4mg cap ORAL SCH ×2 (08:55→17:13)
--- NOTE | 2020-08-28 11:28 | Diagnostic Imaging Report ---
Indication: Dyspnea Technique: One view of the chest Comparison: 08/26/2020 Findings: Consolidation in the right lung, particular the right upper lobe, and left lung base appears increasingly dense. The heart remains enlarged. Impression: Worsening bilateral infiltrates, versus edema, bilaterally
[2020-08-28 12:00] VITALS: BP 142/46
[2020-08-28] MEDS: Piperacillin/Tazobactam 3.375 GM in NS 110 ML IVPB SCH ×2 (12:40→21:49)
--- NOTE | 2020-08-28 13:02 | Pulmonology Progress Note ---
Subjective ROS Limited/Unobtainable: Yes HEENT: Repors: no symptoms Respiratory: Reports: no symptoms Allergies: Coded Allergies: No Known Allergies (Unverified , 01/04/19) Objective Last 24 Hour Vital Signs Date Time Temp Pulse Resp B/P (MAP) Pulse Ox O2 Delivery O2 Flow Rate FiO2 08/28/20 12:00 97.8 63 20 142/46 (78) 97 08/28/20 09:00 Non-Rebreather 15.0 08/28/20 08:00 98.1 84 20 117/66 (83) 94 08/28/20 08:00 83 08/28/20 04:00 83 08/28/20 04:00 96.5 68 22 137/55 (82) 95 08/28/20 00:00 96.3 74 22 108/54 (72) 92 08/27/20 21:00 Non-Rebreather 15.0 08/27/20 20:00 92 Non-Rebreather 15.0 100 08/27/20 20:00 97.5 64 22 138/55 (82) 95 08/27/20 20:00 67 08/27/20 16:00 61 08/27/20 16:00 96.8 64 20 144/64 (90) 95 Intake and Output 08/27/20 08/28/20 19:00 07:00 # Bowel Movements 1 General Appearance: WD/WN HEENT: normocephalic, atraumatic, other - O2 Respiratory: chest wall non-tender, rhonchi - bilaterally - scattered Cardiovascular: normal peripheral pulses, normal rate, regular rhythm Abdomen: normal bowel sounds, soft, non tender Genitourinary: normal external genitalia Extremities: no clubbing Neurologic: alert, responsive, other - R side paresis Lymphatic: no neck adenopathy Musculoskeletal: atrophy - BLE Laboratory Tests 08/27/20 16:46: POC Whole Blood Glucose 157H 08/27/20 22:16: POC Whole Blood Glucose 126H 08/28/20 05:33: White Blood Count 13.4H, Red Blood Count 5.02, Hemoglobin 13.6L, Hematocrit 40.0L, Mean Corpuscular Volume 80, Mean Corpuscular Hemoglobin 27.2, Mean Corpuscular Hemoglobin Concent 34.1, Red Cell Distribution Width 13.7, Platelet Count 168, Mean Platelet Volume 7.3, Neutrophils (%) (Auto) , Lymphocytes (%) (Auto) , Monocytes (%) (Auto) , Eosinophils (%) (Auto) , Basophils (%) (Auto) , Differential Total Cells Counted 100, Neutrophils % (Manual) 87H, Lymphocytes % (Manual) 7L, Monocytes % (Manual) 6, Eosinophils % (Manual) 0, Basophils % (Manual) 0, Band Neutrophils 0, Platelet Estimate Adequate, Platelet Morphology Normal, Red Blood Cell Morphology Normal, Sodium Level 142, Potassium Level 3.9, Chloride Level 112H, Carbon Dioxide Level 26, Anion Gap 4L, Blood Urea Nitrogen 24H, Creatinine 0.8, Estimat Glomerular Filtration Rate > 60, Glucose Level 98, Calcium Level 7.7L, Phosphorus Level 2.2L, Magnesium Level 1.7L, Total Bilirubin 0.7, Aspartate Amino Transf (AST/SGOT) 15, Alanine Aminotransferase (ALT/SGPT) 9L, Alkaline Phosphatase 76, C-Reactive Protein, Quantitative 9.6H, Pro-B-Type Natriuretic Peptide 7016H, Total Protein 5.1L, Albumin 1.8L, Globulin 3.3, Albumin/Globulin Ratio 0.5L 08/28/20 11:37: POC Whole Blood Glucose [Pending] Current Medications Medications (Trade) Dose Ordered Sig/Amaya Route PRN Reason Start Time Stop Time Status Last Admin Dose Admin Acetaminophen (Tylenol) 650 mg Q4H PRN ORAL Temp >100.5 08/17/20 19:45 09/16/20 19:44 Albuterol/ Ipratropium (Combivent Respimat) 1 puff Q4H PRN INH Shortness of Breath 08/18/20 13:00 09/17/20 12:59 Apixaban (Eliquis) 5 mg BID ORAL 08/18/20 18:00 11/16/20 17:59 08/28/20 08:55 Dextrose (Dextrose 50%) 25 ml Q30M PRN IV Hypoglycemia 08/18/20 11:45 11/16/20 11:44 Dextrose (Dextrose 50%) 50 ml Q30M PRN IV Hypoglycemia 08/18/20 11:45 11/16/20 11:44 Insulin Aspart (NovoLOG) BEFORE MEALS AND HS SUBQ 08/18/20 16:30 11/16/20 16:29 08/26/20 21:00 Ondansetron HCl (Zofran) 4 mg Q6H PRN IVP Nausea & Vomiting 08/17/20 19:45 09/16/20 19:44 Pantoprazole (Protonix) 40 mg DAILY ORAL 08/18/20 09:00 09/17/20 08:59 08/28/20 08:55 Piperacillin Sod/ Tazobactam Sod 3.375 gm/Sodium Chloride 110 ml @ 27.5 mls/hr EVERY 8 HOURS IVPB 08/28/20 13:00 09/02/20 12:59 08/28/20 12:40 Polyethylene Glycol (Miralax) 17 gm DAILYPRN PRN ORAL Constipation 08/17/20 19:45 09/16/20 19:44 08/19/20 17:56 Promethazine HCl/ Codeine (Phenergan with Codeine) 5 ml Q6H PRN ORAL cough 08/17/20 19:45 09/16/20 19:44 Sodium Chloride 1,000 ml @ 50 mls/hr Q20H IV 08/18/20 18:30 09/17/20 18:29 08/27/20 23:27 Tamsulosin HCl (Flomax) 0.4 mg BID ORAL 08/18/20 09:00 09/17/20 08:59 08/28/20 08:55 Assessment/Plan Problems: (1) Nosocomial pneumonia (2) Hypoxia (3) 2019 novel coronavirus detected (4) CVA, old, hemiparesis (5) Hypertension (6) Diabetes mellitus (7) BPH (benign prostatic hyperplasia) Assessment/Plan wbc higher cxr from 08/22: New or markedly worsened bilateral infiltrates, since prior exam of 5 days earlier 08/26 Suspect slight worsening of right lung infiltrates. 08/28 cxr: Worsening bilateral infiltrates, versus edema, bilaterally respiratory isolation off steroids and Remdesevir titrate fio2 to sat of 92% check inflammatory markers sliding scale diabetic diet repeat CXR pending Angelita Alarcon MD Aug 28, 2020 13:02
--- NOTE | 2020-08-28 13:13 | Cardiac Electrophysiology PN ---
Assessment/Plan Assessment/Plan 1. COVID-19 pneumonia. S/P Remdesevir, ceftriaxone, albuterol, dexamethasone and apixaban. On 100% NRB FM 2. Hypertension. Stable off antihypertensive agents. 3. Diabetes. 4. History of CVA with hemiparesis. 5. Benign prostatic hypertrophy. 6. Neno with HR high 40s, likely due to Covid. Asymptomatic DW RN Subjective Subjective Alert on 100% NRBFM in Covid isolation . HR high 40s. Objective Last 24 Hour Vital Signs Date Time Temp Pulse Resp B/P (MAP) Pulse Ox O2 Delivery O2 Flow Rate FiO2 08/28/20 13:08 93 Non-Rebreather 15.0 100 08/28/20 12:00 97.8 63 20 142/46 (78) 97 08/28/20 09:00 Non-Rebreather 15.0 08/28/20 08:00 98.1 84 20 117/66 (83) 94 08/28/20 08:00 83 08/28/20 04:00 83 08/28/20 04:00 96.5 68 22 137/55 (82) 95 08/28/20 00:00 96.3 74 22 108/54 (72) 92 08/27/20 21:00 Non-Rebreather 15.0 08/27/20 20:00 92 Non-Rebreather 15.0 100 08/27/20 20:00 97.5 64 22 138/55 (82) 95 08/27/20 20:00 67 08/27/20 16:00 61 08/27/20 16:00 96.8 64 20 144/64 (90) 95 Intake and Output 08/27/20 08/28/20 19:00 07:00 # Bowel Movements 1 Laboratory Tests Test 08/27/20 16:46 08/27/20 22:16 08/28/20 05:33 08/28/20 11:37 POC Whole Blood Glucose 157 MG/DL (74-106) H 126 MG/DL (74-106) H Pending White Blood Count 13.4 K/UL (4.8-10.8) H Red Blood Count 5.02 M/UL (4.70-6.10) Hemoglobin 13.6 G/DL (14.2-18.0) L Hematocrit 40.0 % (42.0-52.0) L Mean Corpuscular Volume 80 FL (80-99) Mean Corpuscular Hemoglobin 27.2 PG (27.0-31.0) Mean Corpuscular Hemoglobin Concent 34.1 G/DL (32.0-36.0) Red Cell Distribution Width 13.7 % (11.6-14.8) Platelet Count 168 K/UL (150-450) Mean Platelet Volume 7.3 FL (6.5-10.1) Neutrophils (%) (Auto) % (45.0-75.0) Lymphocytes (%) (Auto) % (20.0-45.0) Monocytes (%) (Auto) % (1.0-10.0) Eosinophils (%) (Auto) % (0.0-3.0) Basophils (%) (Auto) % (0.0-2.0) Differential Total Cells Counted 100 Neutrophils % (Manual) 87 % (45-75) H Lymphocytes % (Manual) 7 % (20-45) L Monocytes % (Manual) 6 % (1-10) Eosinophils % (Manual) 0 % (0-3) Basophils % (Manual) 0 % (0-2) Band Neutrophils 0 % (0-8) Platelet Estimate Adequate Platelet Morphology Normal Red Blood Cell Morphology Normal Sodium Level 142 MMOL/L (136-145) Potassium Level 3.9 MMOL/L (3.5-5.1) Chloride Level 112 MMOL/L (98-107) H Carbon Dioxide Level 26 MMOL/L (21-32) Anion Gap 4 mmol/L (5-15) L Blood Urea Nitrogen 24 mg/dL (7-18) H Creatinine 0.8 MG/DL (0.55-1.30) Estimat Glomerular Filtration Rate > 60 mL/min (>60) Glucose Level 98 MG/DL (74-106) Calcium Level 7.7 MG/DL (8.5-10.1) L Phosphorus Level 2.2 MG/DL (2.5-4.9) L Magnesium Level 1.7 MG/DL (1.8-2.4) L Total Bilirubin 0.7 MG/DL (0.2-1.0) Aspartate Amino Transf (AST/SGOT) 15 U/L (15-37) Alanine Aminotransferase (ALT/SGPT) 9 U/L (12-78) L Alkaline Phosphatase 76 U/L (46-116) C-Reactive Protein, Quantitative 9.6 mg/dL (0.00-0.90) H Pro-B-Type Natriuretic Peptide 7016 pg/mL (0-125) H Total Protein 5.1 G/DL (6.4-8.2) L Albumin 1.8 G/DL (3.4-5.0) L Globulin 3.3 g/dL Albumin/Globulin Ratio 0.5 (1.0-2.7) L Objective HEAD AND NECK: No JVD. LUNGS: Coarse rhonchi. CARDIOVASCULAR: Regular S1 and S2 with no gallop or murmur. ABDOMEN: Soft. EXTREMITIES: No pitting edema. Sabino Goncalves MD Aug 28, 2020 13:13
--- NOTE | 2020-08-28 13:22 | Nephrology Progress Note ---
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 Hypertension Diabetes, hypoalbuminemia BPH Plan August 28: Labs reviewed. Magnesium and phosphorus replacement ordered. Continue per consultants. August 27: No labs drawn today. Continue per consultants. Will check lab in a.m. August 26: White blood cells 14.9. Renal parameters stable. Continue per consultants. August 25: [place] [address]. Renal parameters stable. August 24: Status quo. No labs drawn today. Will check lab tomorrow. August 23: Status quo. Labs reviewed. Renal parameters are stable. Continue per consultants. August 22: Status quo. Stable renal parameters. Continue per consultants. August 21: Labs were reviewed. Renal parameters are stable. Continue per consultants. August 20: Labs reviewed. Creatinine now normalized. Electrolytes within normal limit. Continue per consultants. Antibiotics Slow hydrate with normal saline Monitor renal parameters Keep the blood pressure blood sugar in check Per orders Subjective ROS Limited/Unobtainable: No Constitutional: Reports: malaise Objective Objective Last 24 Hour Vital Signs Date Time Temp Pulse Resp B/P (MAP) Pulse Ox O2 Delivery O2 Flow Rate FiO2 08/28/20 13:08 93 Non-Rebreather 15.0 100 08/28/20 12:00 97.8 63 20 142/46 (78) 97 08/28/20 09:00 Non-Rebreather 15.0 08/28/20 08:00 98.1 84 20 117/66 (83) 94 08/28/20 08:00 83 08/28/20 04:00 83 08/28/20 04:00 96.5 68 22 137/55 (82) 95 08/28/20 00:00 96.3 74 22 108/54 (72) 92 08/27/20 21:00 Non-Rebreather 15.0 08/27/20 20:00 92 Non-Rebreather 15.0 100 08/27/20 20:00 97.5 64 22 138/55 (82) 95 08/27/20 20:00 67 12/22/20 16:00 61 08/27/20 16:00 96.8 64 20 144/64 (90) 95 Intake and Output 08/27/20 08/28/20 19:00 07:00 # Bowel Movements 1 Laboratory Tests 08/27/20 16:46: POC Whole Blood Glucose 157H 08/27/20 22:16: POC Whole Blood Glucose 126H 08/28/20 05:33: White Blood Count 13.4H, Red Blood Count 5.02, Hemoglobin 13.6L, Hematocrit 40.0L, Mean Corpuscular Volume 80, Mean Corpuscular Hemoglobin 27.2, Mean Corpuscular Hemoglobin Concent 34.1, Red Cell Distribution Width 13.7, Platelet Count 168, Mean Platelet Volume 7.3, Neutrophils (%) (Auto) , Lymphocytes (%) (Auto) , Monocytes (%) (Auto) , Eosinophils (%) (Auto) , Basophils (%) (Auto) , Differential Total Cells Counted 100, Neutrophils % (Manual) 87H, Lymphocytes % (Manual) 7L, Monocytes % (Manual) 6, Eosinophils % (Manual) 0, Basophils % (Manual) 0, Band Neutrophils 0, Platelet Estimate Adequate, Platelet Morphology Normal, Red Blood Cell Morphology Normal, Sodium Level 142, Potassium Level 3.9, Chloride Level 112H, Carbon Dioxide Level 26, Anion Gap 4L, Blood Urea Nitrogen 24H, Creatinine 0.8, Estimat Glomerular Filtration Rate > 60, Glucose Level 98, Calcium Level 7.7L, Phosphorus Level 2.2L, Magnesium Level 1.7L, Total Bilirubin 0.7, Aspartate Amino Transf (AST/SGOT) 15, Alanine Aminotransferase (ALT/SGPT) 9L, Alkaline Phosphatase 76, C-Reactive Protein, Quantitative 9.6H, Pro-B-Type Natriuretic Peptide 7016H, Total Protein 5.1L, Albumin 1.8L, Globulin 3.3, Albumin/Globulin Ratio 0.5L 08/28/20 11:37: POC Whole Blood Glucose [Pending] Height (Feet): 5 Height (Inches): 8.00 Weight (Pounds): 163 General Appearance: no apparent distress Cardiovascular: normal rate Respiratory/Chest: decreased breath sounds Abdomen: soft Objective No change Devonte Zuniga MD Aug 28, 2020 13:22
[2020-08-28] MEDS ORDERED: Sodium Phosphate 30 MM in NS 275 ML IV ONE (15:00)
[2020-08-28 16:00] VITALS: BP 132/63
[2020-08-28] MEDS: Phospha 250 Neutral tab ORAL SCH (17:13)
[2020-08-28] MEDS: Magnesium Oxide 400mg tab ORAL SCH (17:13)
--- NOTE | 2020-08-28 18:30 | NUR ---
NURSE HAND-OFF REPORT: Important Events on Shift: Patient was desaturating to 85% on non-rebreather, Bipap ordered, patient refused Bipap, returned to non-rebreather and saturating at 94%, Zosyn added, lasix 1 x dose added, magnesium replacement and sodium phosophate. Need sputum culture, still. CXR shows worsening bilateral infiltrates verses edema. Patient Status: Stable Diet: Cardiac, 1:1 feed. Pending Orders: Sodim phos. Pending Results/Labs:AM labs, CBC, CMP, Mg., Phos. Pending MD notification:N/A Latest Vital Signs: Temperature 98.1 , Pulse 71 , B/P 132 /63 , Respiratory Rate 20 , O2 SAT 98 , Nasal Cannula, O2 Flow Rate 15.0 . Vital Sign Comment: Stable EKG Rhythm: SB w/BBB Rhythm change?: N Notified?: Juancarlos Harris MD Response: No New Orders Received Latest Wong Fall Score: 40 Fall Risk: Medium Risk Safety Measures: Call light Within Reach, Bed Alarm Zone 1, Side Rails Side Rails x2, Bed position Low and Locked. Fall Precautions: Yellow Socks Yellow Gown Patient Fall Education Report will be given to Poli Jeffries RN upon arrival. Addendum: 08/28/20 at 1859 by OLGA COLON RN Report given to Poli Jeffries RN. Addendum: 08/28/20 at 1912 by OLGA COLON RN Patient is on 15 liters non-rebreather saturating at 94%.
[2020-08-28 20:00] VITALS: BP 137/63
--- NOTE | 2020-08-28 20:21 | General Progress Note ---
Subjective ROS Limited/Unobtainable: Yes Allergies: Coded Allergies: No Known Allergies (Unverified , 01/04/19) Objective Last 24 Hour Vital Signs Date Time Temp Pulse Resp B/P (MAP) Pulse Ox O2 Delivery O2 Flow Rate FiO2 08/28/20 16:00 71 08/28/20 16:00 98.1 73 20 132/63 (86) 98 08/28/20 13:08 93 Non-Rebreather 15.0 100 08/28/20 12:00 97.8 63 20 142/46 (78) 97 08/28/20 12:00 70 08/28/20 09:00 Non-Rebreather 15.0 08/28/20 08:00 98.1 84 20 117/66 (83) 94 08/28/20 08:00 83 08/28/20 04:00 83 08/28/20 04:00 96.5 68 22 137/55 (82) 95 08/28/20 00:00 96.3 74 22 108/54 (72) 92 08/27/20 21:00 Non-Rebreather 15.0 Intake and Output 08/27/20 08/28/20 19:00 07:00 Intake Total 50 ml Balance 50 ml IV Total 50 ml # Bowel Movements 1 Laboratory Tests 08/27/20 22:16: POC Whole Blood Glucose 126H 08/28/20 05:33: White Blood Count 13.4H, Red Blood Count 5.02, Hemoglobin 13.6L, Hematocrit 40.0L, Mean Corpuscular Volume 80, Mean Corpuscular Hemoglobin 27.2, Mean Corpuscular Hemoglobin Concent 34.1, Red Cell Distribution Width 13.7, Platelet Count 168, Mean Platelet Volume 7.3, Neutrophils (%) (Auto) , Lymphocytes (%) (Auto) , Monocytes (%) (Auto) , Eosinophils (%) (Auto) , Basophils (%) (Auto) , Differential Total Cells Counted 100, Neutrophils % (Manual) 87H, Lymphocytes % (Manual) 7L, Monocytes % (Manual) 6, Eosinophils % (Manual) 0, Basophils % (Manual) 0, Band Neutrophils 0, Platelet Estimate Adequate, Platelet Morphology Normal, Red Blood Cell Morphology Normal, Sodium Level 142, Potassium Level 3.9, Chloride Level 112H, Carbon Dioxide Level 26, Anion Gap 4L, Blood Urea Nitrogen 24H, Creatinine 0.8, Estimat Glomerular Filtration Rate > 60, Glucose Level 98, Calcium Level 7.7L, Phosphorus Level 2.2L, Magnesium Level 1.7L, Total Bilirubin 0.7, Aspartate Amino Transf (AST/SGOT) 15, Alanine Aminotransferase (ALT/SGPT) 9L, Alkaline Phosphatase 76, C-Reactive Protein, Quantitative 9.6H, Pro-B-Type Natriuretic Peptide 7016H, Total Protein 5.1L, Albumin 1.8L, Globulin 3.3, Albumin/Globulin Ratio 0.5L 08/28/20 11:37: POC Whole Blood Glucose [Pending] 08/28/20 16:13: POC Whole Blood Glucose [Pending] Height (Feet): 5 Height (Inches): 8.00 Weight (Pounds): 163 Assessment/Plan Problem List: (1) Renal failure (ARF), acute on chronic ICD Codes: N17.9 - Acute kidney failure, unspecified; N18.9 - Chronic kidney disease, unspecified SNOMED: 076446526 (2) Diabetes mellitus ICD Codes: E11.9 - Type 2 diabetes mellitus without complications SNOMED: 93481990 (3) Sepsis due to urinary tract infection ICD Codes: A41.9 - Sepsis, unspecified organism; N39.0 - Urinary tract infection, site not specified SNOMED: 907349331 (4) Episode of generalized weakness ICD Codes: R53.1 - Weakness SNOMED: 11614534 (5) Renal failure (ARF), acute on chronic ICD Codes: N17.9 - Acute kidney failure, unspecified; N18.9 - Chronic kidney disease, unspecified SNOMED: 219132604 (6) CVA, old, hemiparesis ICD Codes: I69.359 - Hemiplegia and hemiparesis following cerebral infarction affecting unspecified side SNOMED: 044984649 (7) Hypoxia ICD Codes: R09.02 - Hypoxemia SNOMED: 502192262 (8) 2019 novel coronavirus detected ICD Codes: U07.1 - COVID-19 SNOMED: 7938247472517986 (9) BPH (benign prostatic hyperplasia) ICD Codes: N40.0 - Benign prostatic hyperplasia without lower urinary tract symptoms SNOMED: 873640350 Status: progressing, unchanged Assessment/Plan: covid + uti sepsis check lytes cva azotemia reviewed chart Jose David Headley MD Aug 28, 2020 20:21
[2020-08-29] VITALS: BP 133/68
[2020-08-29] MEDS: Promethazine/Codeine 5ml UD ORAL PRN (00:38)
[2020-08-29 04:00] VITALS: BP 136/61
[2020-08-29] MEDS: Piperacillin/Tazobactam 3.375 GM in NS 110 ML IVPB SCH ×3 (05:35→20:57)
[2020-08-29] MEDS: NovoLOG Insulin Flexpen SUBQ SCH ×4 (05:35→20:57)
--- NOTE | 2020-08-29 06:53 | NUR ---
NURSE HAND-OFF REPORT: Important Events on Shift:Pt continued scheduled medications Patient Status: Stable Diet: Cardiac Pending Orders: Pending Results/Labs:AM Labs Pending MD notification: Latest Vital Signs: Temperature 97.0 , Pulse 70 , B/P 136 /61 , Respiratory Rate 20 , O2 SAT 93 , Nasal Cannula, O2 Flow Rate 15.0 . Vital Sign Comment: VSS EKG Rhythm: Sinus Rhythm Rhythm change?: N MD Notified?: Juancarlos Harris MD Response: No New Orders Received Latest Wong Fall Score: 40 Fall Risk: Medium Risk Safety Measures: Call light Within Reach, Bed Alarm Zone 1, Side Rails Side Rails x2, Bed position Low and Locked. Fall Precautions: Yellow Socks Yellow Gown Patient Fall Education Report given to BRYAN Samano.
--- NOTE | 2020-08-29 07:03 | NUR ---
NURSE NOTES: RECEIVED AM REPORT. PT IS AWAKE AND ALERT IN BED. VERBALLY RESPONSIVE. RESPIRATION IS EVEN AND UNLABORED WITH O2 @ 15L/MIN VIA NON-REBREATHER MASK. HOB IN ELEVATED POSITION. NO ACUTE DISTRESS NOTED AT THIS TIME. CALL LIGHT WITHIN REACH.
[2020-08-29 07:37] LABS: ALANINE AMINOTRANSFERASE 7 U/L (12-78); ALBUMIN 1.9 G/DL (3.4-5.0); ALBUMIN/GLOBULIN RATIO 0.5 (1.0-2.7); ALKALINE PHOSPHATASE 79 U/L (46-116); ANION GAP 7 mmol/L (5-15); ASPARTATE AMINO TRANSFERASE 15 U/L (15-37); BILIRUBIN,TOTAL 0.9 MG/DL (0.2-1.0); BLOOD UREA NITROGEN 24 mg/dL (7-18); CALCIUM 7.7 MG/DL (8.5-10.1); CARBON DIOXIDE 28 MMOL/L (21-32); CHLORIDE 109 MMOL/L (98-107); CREATININE 0.9 MG/DL (0.55-1.30); PHOSPHORUS 3.8 MG/DL (2.5-4.9); POTASSIUM 3.4 MMOL/L (3.5-5.1); SODIUM 144 MMOL/L (136-145)
[2020-08-29 08:00] VITALS: BP 133/71
[2020-08-29 08:09] LABS: HEMATOCRIT 42.1 % (42.0-52.0); HEMOGLOBIN 14.4 G/DL (14.2-18.0); MEAN CORPUSCULAR VOLUME 78 FL (80-99); PLATELET COUNT 167 K/UL (150-450); RED BLOOD COUNT 5.38 M/UL (4.70-6.10); RED CELL DISTRIBUTION WIDTH 13.9 % (11.6-14.8); WHITE BLOOD COUNT 15.2 K/UL (4.8-10.8)
--- NOTE | 2020-08-29 08:22 | Infectious Diseases Prog Note ---
Assessment/Plan 84yo M with: Afebrile Normal WBC Lymphopenia COVID pneumonia, severe Acute hypoxic resp failure 2/2 COVID pna UTI/cystitis 08/17 BCx NTD UCx +ESBL E.coli CXR: No significant change in tortuosity/ectasia of the thoracic aorta. Negative for cardiac enlargement. Negative for focal consolidation, pneumothorax or pleural fluid collections. COVID rapid test positive, PCR positive 08/22 CXR: New or markedly worsened bilateral infiltrates, since prior exam of 5 days earlier 08/28 CXR: Worsening bilateral infiltrates, versus edema, bilaterally Cr 1.8, improving 08/19 Renal US: Negative for hydronephrosis. 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 Bilateral renal cysts, large on the right. Plan: Cont Zosyn #2 given worsening resp status Resp cx if able Recommend diuresis, BNP >7000k 08/27 SP dex #10 08/24 SP RDV #5, ertapenem #5 for UTI 08/23 SP Azithro #5 Convalescent plasma unfortunately not available at this institution so unable to give, additionally unclear if it improves mortality/outcomes or not Monitor CBC/CMP Monitor temp curve, hemodynamics Monitor resp status D/w RN Thank you for this consult. [facility] will continue to follow. Subjective Allergies: Coded Allergies: No Known Allergies (Unverified , 01/04/19) AF On NRB satting 95% WBC 15 Objective Last 24 Hour Vital Signs Date Time Temp Pulse Resp B/P (MAP) Pulse Ox O2 Delivery O2 Flow Rate FiO2 08/29/20 04:00 70 08/29/20 04:00 97.0 83 20 136/61 (86) 93 08/29/20 00:00 97.2 87 18 133/68 (89) 96 08/29/20 00:00 65 08/28/20 23:20 98 Non-Rebreather 15.0 100 08/28/20 21:00 Non-Rebreather 15.0 08/28/20 20:00 96.9 90 19 137/63 (87) 94 08/28/20 20:00 76 08/28/20 16:00 71 08/28/20 16:00 98.1 73 20 132/63 (86) 98 08/28/20 13:08 93 Non-Rebreather 15.0 100 08/28/20 12:00 97.8 63 20 142/46 (78) 97 08/28/20 12:00 70 08/28/20 09:00 Non-Rebreather 15.0 Height (Feet): 5 Height (Inches): 8.00 Weight (Pounds): 163 Gen: NAD HEENT: NCAT Pulm: BL chest rise Abd: Non-distended Ext: No c/c/e Skin: No visible rashes Neuro: Awake, interactive Laboratory Tests Test 08/28/20 11:37 08/28/20 16:13 08/28/20 21:01 08/29/20 05:40 POC Whole Blood Glucose Pending Pending Pending White Blood Count 15.2 K/UL (4.8-10.8) H Red Blood Count 5.38 M/UL (4.70-6.10) Hemoglobin 14.4 G/DL (14.2-18.0) Hematocrit 42.1 % (42.0-52.0) Mean Corpuscular Volume 78 FL (80-99) L Mean Corpuscular Hemoglobin 26.8 PG (27.0-31.0) L Mean Corpuscular Hemoglobin Concent 34.3 G/DL (32.0-36.0) Red Cell Distribution Width 13.9 % (11.6-14.8) Platelet Count 167 K/UL (150-450) Mean Platelet Volume 8.2 FL (6.5-10.1) Neutrophils (%) (Auto) % (45.0-75.0) Lymphocytes (%) (Auto) % (20.0-45.0) Monocytes (%) (Auto) % (1.0-10.0) Eosinophils (%) (Auto) % (0.0-3.0) Basophils (%) (Auto) % (0.0-2.0) Neutrophils % (Manual) Pending Lymphocytes % (Manual) Pending Platelet Estimate Pending Platelet Morphology Pending Sodium Level 144 MMOL/L (136-145) Potassium Level 3.4 MMOL/L (3.5-5.1) L Chloride Level 109 MMOL/L (98-107) H Carbon Dioxide Level 28 MMOL/L (21-32) Anion Gap 7 mmol/L (5-15) Blood Urea Nitrogen 24 mg/dL (7-18) H Creatinine 0.9 MG/DL (0.55-1.30) Estimat Glomerular Filtration Rate > 60 mL/min (>60) Glucose Level 141 MG/DL (74-106) H Calcium Level 7.7 MG/DL (8.5-10.1) L Phosphorus Level 3.8 MG/DL (2.5-4.9) Magnesium Level 2.1 MG/DL (1.8-2.4) Total Bilirubin 0.9 MG/DL (0.2-1.0) Aspartate Amino Transf (AST/SGOT) 15 U/L (15-37) Alanine Aminotransferase (ALT/SGPT) 7 U/L (12-78) L Alkaline Phosphatase 79 U/L (46-116) Total Protein 5.4 G/DL (6.4-8.2) L Albumin 1.9 G/DL (3.4-5.0) L Globulin 3.5 g/dL Albumin/Globulin Ratio 0.5 (1.0-2.7) L Current Medications Medications (Trade) Dose Ordered Sig/Amaya Route PRN Reason Start Time Stop Time Status Last Admin Dose Admin Acetaminophen (Tylenol) 650 mg Q4H PRN ORAL Temp >100.5 08/17/20 19:45 09/16/20 19:44 Albuterol/ Ipratropium (Combivent Respimat) 1 puff Q4H PRN INH Shortness of Breath 08/18/20 13:00 09/17/20 12:59 Apixaban (Eliquis) 5 mg BID ORAL 08/18/20 18:00 11/16/20 17:59 08/28/20 17:12 Dextrose (Dextrose 50%) 25 ml Q30M PRN IV Hypoglycemia 08/18/20 11:45 11/16/20 11:44 Dextrose (Dextrose 50%) 50 ml Q30M PRN IV Hypoglycemia 08/18/20 11:45 11/16/20 11:44 Insulin Aspart (NovoLOG) BEFORE MEALS AND HS SUBQ 08/18/20 16:30 11/16/20 16:29 08/28/20 17:14 Magnesium Oxide (Mag-Ox 400mg) 400 mg THREE TIMES A DAY ORAL 08/28/20 18:00 09/27/20 17:59 08/28/20 17:13 Ondansetron HCl (Zofran) 4 mg Q6H PRN IVP Nausea & Vomiting 08/17/20 19:45 09/16/20 19:44 Pantoprazole (Protonix) 40 mg DAILY ORAL 08/18/20 09:00 09/17/20 08:59 08/28/20 08:55 Phosphorus (Phospha 250 Neutral) 250 mg THREE TIMES A DAY ORAL 08/28/20 18:00 09/27/20 17:59 08/28/20 17:13 Piperacillin Sod/ Tazobactam Sod 3.375 gm/Sodium Chloride 110 ml @ 27.5 mls/hr EVERY 8 HOURS IVPB 08/28/20 13:00 09/02/20 12:59 08/29/20 05:35 Polyethylene Glycol (Miralax) 17 gm DAILYPRN PRN ORAL Constipation 08/17/20 19:45 09/16/20 19:44 08/19/20 17:56 Promethazine HCl/ Codeine (Phenergan with Codeine) 5 ml Q6H PRN ORAL cough 08/17/20 19:45 09/16/20 19:44 08/29/20 00:38 Tamsulosin HCl (Flomax) 0.4 mg BID ORAL 08/18/20 09:00 09/17/20 08:59 08/28/20 17:13 Aneta Nguyen M.D. Aug 29, 2020 08:22
[2020-08-29] MEDS: Tamsulosin 0.4mg cap ORAL SCH ×2 (08:54→17:54)
[2020-08-29] MEDS: Eliquis 5mg tablet ORAL SCH ×2 (08:54→17:54)
[2020-08-29] MEDS: Magnesium Oxide 400mg tab ORAL SCH (08:54)
[2020-08-29] MEDS: Phospha 250 Neutral tab ORAL SCH (08:54)
--- NOTE | 2020-08-29 10:01 | NUR ---
RADIOLOGY DEPT., CHEST X-RAY DONE.-P.DYE
--- NOTE | 2020-08-29 10:38 | Diagnostic Imaging Report ---
Indication: Dyspnea Technique: One view of the chest Comparison: 08/28/2020 Findings: Right pleural effusion and right lung infiltrates are again demonstrated. There is improving aeration of the left lung base, with some residual atelectasis and infiltrate. Normal heart size Impression: Right pleural effusion and infiltrates, unchanged Improving left basilar atelectasis and infiltrate
[2020-08-29 11:54] VITALS: BP 121/67
--- NOTE | 2020-08-29 12:09 | Cardiac Electrophysiology PN ---
Assessment/Plan Assessment/Plan 1. COVID-19 pneumonia. S/P Remdesevir, ceftriaxone, albuterol, dexamethasone and apixaban. On 15 liter NRB FM 2. Hypertension. Stable off antihypertensive agents. 3. Diabetes. 4. History of CVA with hemiparesis. 5. Benign prostatic hypertrophy. 6. Neno with HR high 40s, likely due to Covid. Asymptomatic DW RN Subjective Subjective Alert on 15 liter NRBFM in Covid isolation. HR high 40s.On Zosyn Objective Last 24 Hour Vital Signs Date Time Temp Pulse Resp B/P (MAP) Pulse Ox O2 Delivery O2 Flow Rate FiO2 08/29/20 11:54 97.3 76 19 121/67 (85) 97 08/29/20 09:00 Non-Rebreather 15.0 08/29/20 08:00 97.9 86 21 133/71 (91) 91 08/29/20 08:00 93 08/29/20 04:00 70 08/29/20 04:00 97.0 83 20 136/61 (86) 93 08/29/20 00:00 97.2 87 18 133/68 (89) 96 08/29/20 00:00 65 08/28/20 23:20 98 Non-Rebreather 15.0 100 08/28/20 21:00 Non-Rebreather 15.0 08/28/20 20:00 96.9 90 19 137/63 (87) 94 08/28/20 20:00 76 08/28/20 16:00 71 08/28/20 16:00 98.1 73 20 132/63 (86) 98 08/28/20 13:08 93 Non-Rebreather 15.0 100 Intake and Output 08/28/20 08/29/20 19:00 07:00 Intake Total 722.41 ml Balance 722.41 ml IV Total 722.41 ml Laboratory Tests Test 08/28/20 16:13 08/28/20 21:01 08/29/20 05:40 08/29/20 08:35 POC Whole Blood Glucose Pending Pending White Blood Count 15.2 K/UL (4.8-10.8) H Red Blood Count 5.38 M/UL (4.70-6.10) Hemoglobin 14.4 G/DL (14.2-18.0) Hematocrit 42.1 % (42.0-52.0) Mean Corpuscular Volume 78 FL (80-99) L Mean Corpuscular Hemoglobin 26.8 PG (27.0-31.0) L Mean Corpuscular Hemoglobin Concent 34.3 G/DL (32.0-36.0) Red Cell Distribution Width 13.9 % (11.6-14.8) Platelet Count 167 K/UL (150-450) Mean Platelet Volume 8.2 FL (6.5-10.1) Neutrophils (%) (Auto) % (45.0-75.0) Lymphocytes (%) (Auto) % (20.0-45.0) Monocytes (%) (Auto) % (1.0-10.0) Eosinophils (%) (Auto) % (0.0-3.0) Basophils (%) (Auto) % (0.0-2.0) Differential Total Cells Counted 100 Neutrophils % (Manual) 91 % (45-75) H Lymphocytes % (Manual) 4 % (20-45) L Monocytes % (Manual) 5 % (1-10) Eosinophils % (Manual) 0 % (0-3) Basophils % (Manual) 0 % (0-2) Band Neutrophils 0 % (0-8) Platelet Estimate Adequate Platelet Morphology Normal Red Blood Cell Morphology Normal Sodium Level 144 MMOL/L (136-145) Potassium Level 3.4 MMOL/L (3.5-5.1) L Chloride Level 109 MMOL/L (98-107) H Carbon Dioxide Level 28 MMOL/L (21-32) Anion Gap 7 mmol/L (5-15) Blood Urea Nitrogen 24 mg/dL (7-18) H Creatinine 0.9 MG/DL (0.55-1.30) Estimat Glomerular Filtration Rate > 60 mL/min (>60) Glucose Level 141 MG/DL (74-106) H Calcium Level 7.7 MG/DL (8.5-10.1) L Phosphorus Level 3.8 MG/DL (2.5-4.9) Magnesium Level 2.1 MG/DL (1.8-2.4) Total Bilirubin 0.9 MG/DL (0.2-1.0) Aspartate Amino Transf (AST/SGOT) 15 U/L (15-37) Alanine Aminotransferase (ALT/SGPT) 7 U/L (12-78) L Alkaline Phosphatase 79 U/L (46-116) Total Protein 5.4 G/DL (6.4-8.2) L Albumin 1.9 G/DL (3.4-5.0) L Globulin 3.5 g/dL Albumin/Globulin Ratio 0.5 (1.0-2.7) L Arterial Blood pH 7.442 (7.350-7.450) Arterial Blood Partial Pressure CO2 39.3 mmHg (35.0-45.0) Arterial Blood Partial Pressure O2 56.9 mmHg (75.0-100.0) L Arterial Blood HCO3 26.2 mmol/L (22.0-26.0) H Arterial Blood Oxygen Saturation 90.1 % (95-100) L Arterial Blood Base Excess 2.1 (-2-2) H Brandon Test Positive Test 08/29/20 11:36 POC Whole Blood Glucose 132 MG/DL (74-106) H Objective HEAD AND NECK: No JVD. LUNGS: Coarse rhonchi. CARDIOVASCULAR: Regular S1 and S2 with no gallop or murmur. ABDOMEN: Soft. EXTREMITIES: No pitting edema. Sabino Goncalves MD Aug 29, 2020 12:09
--- NOTE | 2020-08-29 12:36 | Nephrology Progress Note ---
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 Hypertension Diabetes, hypoalbuminemia BPH Plan August 29: Labs reviewed. Abnormal electrolyte addressed. Continue per consultants. August 28: Labs reviewed. Magnesium and phosphorus replacement ordered. Continue per consultants. August 27: No labs drawn today. Continue per consultants. Will check lab in a.m. August 26: White blood cells 14.9. Renal parameters stable. Continue per consultants. August 25: Labs are [place]s [place] [id number]. Renal parameters stable. August 24: Status quo. No labs drawn today. Will check lab tomorrow. August 23: Status quo. Labs reviewed. Renal parameters are stable. Continue per consultants. August 22: Status quo. Stable renal parameters. Continue per consultants. August 21: Labs were reviewed. Renal parameters are stable. Continue per consultants. August 20: Labs reviewed. Creatinine now normalized. Electrolytes within normal limit. Continue per consultants. Antibiotics Slow hydrate with normal saline Monitor renal parameters Keep the blood pressure blood sugar in check Per orders Subjective ROS Limited/Unobtainable: No Constitutional: Reports: malaise Objective Objective Last 24 Hour Vital Signs Date Time Temp Pulse Resp B/P (MAP) Pulse Ox O2 Delivery O2 Flow Rate FiO2 08/29/20 11:54 97.3 76 19 121/67 (85) 97 08/29/20 09:00 Non-Rebreather 15.0 08/29/20 08:00 97.9 86 21 133/71 (91) 91 08/29/20 08:00 93 08/29/20 04:00 70 08/29/20 04:00 97.0 83 20 136/61 (86) 93 08/29/20 00:00 97.2 87 18 133/68 (89) 96 08/29/20 00:00 65 08/28/20 23:20 98 Non-Rebreather 15.0 100 08/28/20 21:00 Non-Rebreather 15.0 08/28/20 20:00 96.9 90 19 137/63 (87) 94 08/28/20 20:00 76 08/28/20 16:00 71 08/28/20 16:00 98.1 73 20 132/63 (86) 98 08/28/20 13:08 93 Non-Rebreather 15.0 100 Intake and Output 08/28/20 08/29/20 19:00 07:00 Intake Total 722.41 ml Balance 722.41 ml IV Total 722.41 ml Current Medications Medications (Trade) Dose Ordered Sig/Amaya Route PRN Reason Start Time Stop Time Status Last Admin Dose Admin Acetaminophen (Tylenol) 650 mg Q4H PRN ORAL Temp >100.5 08/17/20 19:45 09/16/20 19:44 Albuterol/ Ipratropium (Combivent Respimat) 1 puff Q4H PRN INH Shortness of Breath 08/18/20 13:00 09/17/20 12:59 Apixaban (Eliquis) 5 mg BID ORAL 08/18/20 18:00 11/16/20 17:59 08/29/20 08:54 Dextrose (Dextrose 50%) 25 ml Q30M PRN IV Hypoglycemia 08/18/20 11:45 11/16/20 11:44 Dextrose (Dextrose 50%) 50 ml Q30M PRN IV Hypoglycemia 08/18/20 11:45 11/16/20 11:44 Insulin Aspart (NovoLOG) BEFORE MEALS AND HS SUBQ 08/18/20 16:30 11/16/20 16:29 08/28/20 17:14 Ondansetron HCl (Zofran) 4 mg Q6H PRN IVP Nausea & Vomiting 08/17/20 19:45 09/16/20 19:44 Pantoprazole (Protonix) 40 mg DAILY ORAL 08/18/20 09:00 09/17/20 08:59 08/29/20 08:54 Piperacillin Sod/ Tazobactam Sod 3.375 gm/Sodium Chloride 110 ml @ 27.5 mls/hr EVERY 8 HOURS IVPB 08/28/20 13:00 09/02/20 12:59 08/29/20 05:35 Polyethylene Glycol (Miralax) 17 gm DAILYPRN PRN ORAL Constipation 08/17/20 19:45 09/16/20 19:44 08/19/20 17:56 Promethazine HCl/ Codeine (Phenergan with Codeine) 5 ml Q6H PRN ORAL cough 08/17/20 19:45 09/16/20 19:44 08/29/20 00:38 Tamsulosin HCl (Flomax) 0.4 mg BID ORAL 08/18/20 09:00 09/17/20 08:59 08/29/20 08:54 Laboratory Tests 08/28/20 16:13: POC Whole Blood Glucose [Pending] 08/28/20 21:01: POC Whole Blood Glucose [Pending] 08/29/20 05:40: White Blood Count 15.2H, Red Blood Count 5.38, Hemoglobin 14.4, Hematocrit 42.1, Mean Corpuscular Volume 78L, Mean Corpuscular Hemoglobin 26.8L, Mean Corpuscula r Hemoglobin Concent 34.3, Red Cell Distribution Width 13.9, Platelet Count 167, Mean Platelet Volume 8.2, Neutrophils (%) (Auto) , Lymphocytes (%) (Auto) , Monocytes (%) (Auto) , Eosinophils (%) (Auto) , Basophils (%) (Auto) , Differential Total Cells Counted 100, Neutrophils % (Manual) 91H, Lymphocytes % (Manual) 4L, Monocytes % (Manual) 5, Eosinophils % (Manual) 0, Basophils % (Manual) 0, Band Neutrophils 0, Platelet Estimate Adequate, Platelet Morphology Normal, Red Blood Cell Morphology Normal, Sodium Level 144, Potassium Level 3.4L , Chloride Level 109H, Carbon Dioxide Level 28, Anion Gap 7, Blood Urea Nitrogen 24H, Creatinine 0.9, Estimat Glomerular Filtration Rate > 60, Glucose Level 141H, Calcium Level 7.7L, Phosphorus Level 3.8, Magnesium Level 2.1, Total Bilirubin 0.9, Aspartate Amino Transf (AST/SGOT) 15, Alanine Aminotransferase (ALT/SGPT) 7L, Alkaline Phosphatase 79, Total Protein 5.4L, Albumin 1.9L, Globulin 3.5, Albumin/Globulin Ratio 0.5L 08/29/20 08:35: Arterial Blood pH 7.442, Arterial Blood Partial Pressure CO2 39.3, Arterial Blood Partial Pressure O2 56.9L, Arterial Blood HCO3 26.2H, Arterial Blood Oxygen Saturation 90.1L, Arterial Blood Base Excess 2.1H, Brandon Test Positive 08/29/20 11:36: POC Whole Blood Glucose 132H Height (Feet): 5 Height (Inches): 8.00 Weight (Pounds): 163 Cardiovascular: normal rate, gallop/S3 Abdomen: soft Objective No change Devonte Zuniga MD Aug 29, 2020 12:36
--- NOTE | 2020-08-29 13:07 | General Progress Note ---
Subjective Allergies: Coded Allergies: No Known Allergies (Unverified , 01/04/19) Objective Last 24 Hour Vital Signs Date Time Temp Pulse Resp B/P (MAP) Pulse Ox O2 Delivery O2 Flow Rate FiO2 08/29/20 11:54 97.3 76 19 121/67 (85) 97 08/29/20 09:00 Non-Rebreather 15.0 08/29/20 08:00 97.9 86 21 133/71 (91) 91 08/29/20 08:00 93 08/29/20 04:00 70 08/29/20 04:00 97.0 83 20 136/61 (86) 93 08/29/20 00:00 97.2 87 18 133/68 (89) 96 08/29/20 00:00 65 08/28/20 23:20 98 Non-Rebreather 15.0 100 08/28/20 21:00 Non-Rebreather 15.0 08/28/20 20:00 96.9 90 19 137/63 (87) 94 08/28/20 20:00 76 08/28/20 16:00 71 08/28/20 16:00 98.1 73 20 132/63 (86) 98 08/28/20 13:08 93 Non-Rebreather 15.0 100 Intake and Output 08/28/20 08/29/20 19:00 07:00 Intake Total 722.41 ml Balance 722.41 ml IV Total 722.41 ml Laboratory Tests 08/28/20 16:13: POC Whole Blood Glucose [Pending] 08/28/20 21:01: POC Whole Blood Glucose [Pending] 08/29/20 05:40: White Blood Count 15.2H, Red Blood Count 5.38, Hemoglobin 14.4, Hematocrit 42.1, Mean Corpuscular Volume 78L, Mean Corpuscular Hemoglobin 26.8L, Mean Corpuscular Hemoglobin Concent 34.3, Red Cell Distribution Width 13.9, Platelet Count 167, Mean Platelet Volume 8.2, Neutrophils (%) (Auto) , Lymphocytes (%) (Auto) , Monocytes (%) (Auto) , Eosinophils (%) (Auto) , Basophils (%) (Auto) , Differential Total Cells Counted 100, Neutrophils % (Manual) 91H, Lymphocytes % (Manual) 4L, Monocytes % (Manual) 5, Eosinophils % (Manual) 0, Basophils % (Manual) 0, Band Neutrophils 0, Platelet Estimate Adequate, Platelet Morphology Normal, Red Blood Cell Morphology Normal, Sodium Level 144, Potassium Level 3.4L , Chloride Level 109H, Carbon Dioxide Level 28, Anion Gap 7, Blood Urea Nitrogen 24H, Creatinine 0.9, Estimat Glomerular Filtration Rate > 60, Glucose Level 141H, Calcium Level 7.7L, Phosphorus Level 3.8, Magnesium Level 2.1, Total Bilirubin 0.9, Aspartate Amino Transf (AST/SGOT) 15, Alanine Aminotransferase (ALT/SGPT) 7L, Alkaline Phosphatase 79, Total Protein 5.4L, Albumin 1.9L, Globulin 3.5, Albumin/Globulin Ratio 0.5L 08/29/20 08:35: Arterial Blood pH 7.442, Arterial Blood Partial Pressure CO2 39.3, Arterial Blood Partial Pressure O2 56.9L, Arterial Blood HCO3 26.2H, Arterial Blood Oxygen Saturation 90.1L, Arterial Blood Base Excess 2.1H, Brandon Test Positive 08/29/20 11:36: POC Whole Blood Glucose 132H Height (Feet): 5 Height (Inches): 8.00 Weight (Pounds): 163 Assessment/Plan Problem List: (1) Renal failure (ARF), acute on chronic ICD Codes: N17.9 - Acute kidney failure, unspecified; N18.9 - Chronic kidney disease, unspecified SNOMED: 020494977 (2) Diabetes mellitus ICD Codes: E11.9 - Type 2 diabetes mellitus without complications SNOMED: 44915195 (3) Sepsis due to urinary tract infection ICD Codes: A41.9 - Sepsis, unspecified organism; N39.0 - Urinary tract infection, site not specified SNOMED: 877747850 (4) Episode of generalized weakness ICD Codes: R53.1 - Weakness SNOMED: 35794697 (5) Renal failure (ARF), acute on chronic ICD Codes: N17.9 - Acute kidney failure, unspecified; N18.9 - Chronic kidney disease, unspecified SNOMED: 353074131 (6) CVA, old, hemiparesis ICD Codes: I69.359 - Hemiplegia and hemiparesis following cerebral infarction affecting unspecified side SNOMED: 391926330 (7) Hypoxia ICD Codes: R09.02 - Hypoxemia SNOMED: 540986687 (8) 2019 novel coronavirus detected ICD Codes: U07.1 - COVID-19 SNOMED: 7601200914813145 (9) BPH (benign prostatic hyperplasia) ICD Codes: N40.0 - Benign prostatic hyperplasia without lower urinary tract symptoms SNOMED: 599206181 Status: progressing, unchanged Assessment/Plan: covid + uti no change poor historian not hypoxic cva azotemia Jose David Headley MD Aug 29, 2020 13:07
[2020-08-29 16:00] VITALS: BP 141/65
--- NOTE | 2020-08-29 17:12 | Pulmonology Progress Note ---
Subjective ROS Limited/Unobtainable: No HEENT: Repors: no symptoms Respiratory: Reports: no symptoms Allergies: Coded Allergies: No Known Allergies (Unverified , 01/04/19) Objective Last 24 Hour Vital Signs Date Time Temp Pulse Resp B/P (MAP) Pulse Ox O2 Delivery O2 Flow Rate FiO2 08/29/20 16:00 98.7 77 21 141/65 (90) 93 08/29/20 12:00 75 08/29/20 11:54 97.3 76 19 121/67 (85) 97 08/29/20 09:00 Non-Rebreather 15.0 08/29/20 08:00 97.9 86 21 133/71 (91) 91 08/29/20 08:00 93 08/29/20 04:00 70 08/29/20 04:00 97.0 83 20 136/61 (86) 93 08/29/20 00:00 97.2 87 18 133/68 (89) 96 08/29/20 00:00 65 08/28/20 23:20 98 Non-Rebreather 15.0 100 08/28/20 21:00 Non-Rebreather 15.0 08/28/20 20:00 96.9 90 19 137/63 (87) 94 08/28/20 20:00 76 Intake and Output 08/28/20 08/29/20 19:00 07:00 Intake Total 722.41 ml Balance 722.41 ml IV Total 722.41 ml General Appearance: WD/WN HEENT: normocephalic, atraumatic, other - O2 Respiratory: chest wall non-tender, rhonchi - bilaterally - scattered Cardiovascular: normal peripheral pulses, normal rate, regular rhythm Abdomen: normal bowel sounds, soft, non tender Genitourinary: normal external genitalia Extremities: no clubbing Neurologic: alert, responsive, other - R side paresis Lymphatic: no neck adenopathy Musculoskeletal: atrophy - BLE Laboratory Tests 08/28/20 21:01: POC Whole Blood Glucose [Pending] 08/29/20 05:40: White Blood Count 15.2H, Red Blood Count 5.38, Hemoglobin 14.4, Hematocrit 42.1, Mean Corpuscular Volume 78L, Mean Corpuscular Hemoglobin 26.8L, Mean Corpuscular Hemoglobin Concent 34.3, Red Cell Distribution Width 13.9, Platelet Count 167, Mean Platelet Volume 8.2, Neutrophils (%) (Auto) , Lymphocytes (%) (Auto) , Monocytes (%) (Auto) , Eosinophils (%) (Auto) , Basophils (%) (Auto) , Differential Total Cells Counted 100, Neutrophils % (Manual) 91H, Lymphocytes % (Manual) 4L, Monocytes % (Manual) 5, Eosinophils % (Manual) 0, Basophils % (M anual) 0, Band Neutrophils 0, Platelet Estimate Adequate, Platelet Morphology Normal, Red Blood Cell Morphology Normal, Sodium Level 144, Potassium Level 3.4L , Chloride Level 109H, Carbon Dioxide Level 28, Anion Gap 7, Blood Urea Nitrogen 24H, Creatinine 0.9, Estimat Glomerular Filtration Rate > 60, Glucose Level 141H, Calcium Level 7.7L, Phosphorus Level 3.8, Magnesium Level 2.1, Total Bilirubin 0.9, Aspartate Amino Transf (AST/SGOT) 15, Alanine Aminotransferase (ALT/SGPT) 7L, Alkaline Phosphatase 79, Total Protein 5.4L, Albumin 1.9L, Globulin 3.5, Albumin/Globulin Ratio 0.5L 08/29/20 08:35: Arterial Blood pH 7.442, Arterial Blood Partial Pressure CO2 39.3, Arterial Blood Partial Pressure O2 56.9L, Arterial Blood HCO3 26.2H, Arterial Blood Oxygen Saturation 90.1L, Arterial Blood Base Excess 2.1H, Brandon Test Positive 08/29/20 11:36: POC Whole Blood Glucose 132H Current Medications Medications (Trade) Dose Ordered Sig/Amaya Route PRN Reason Start Time Stop Time Status Last Admin Dose Admin Acetaminophen (Tylenol) 650 mg Q4H PRN ORAL Temp >100.5 08/17/20 19:45 09/16/20 19:44 Albuterol/ Ipratropium (Combivent Respimat) 1 puff Q4H PRN INH Shortness of Breath 08/18/20 13:00 09/17/20 12:59 Apixaban (Eliquis) 5 mg BID ORAL 08/18/20 18:00 11/16/20 17:59 08/29/20 08:54 Dextrose (Dextrose 50%) 25 ml Q30M PRN IV Hypoglycemia 08/18/20 11:45 11/16/20 11:44 Dextrose (Dextrose 50%) 50 ml Q30M PRN IV Hypoglycemia 08/18/20 11:45 11/16/20 11:44 Insulin Aspart (NovoLOG) BEFORE MEALS AND HS SUBQ 08/18/20 16:30 11/16/20 16:29 08/28/20 17:14 Ondansetron HCl (Zofran) 4 mg Q6H PRN IVP Nausea & Vomiting 08/17/20 19:45 09/16/20 19:44 Pantoprazole (Protonix) 40 mg DAILY ORAL 08/18/20 09:00 09/17/20 08:59 08/29/20 08:54 Piperacillin Sod/ Tazobactam Sod 3.375 gm/Sodium Chloride 110 ml @ 27.5 mls/hr EVERY 8 HOURS IVPB 08/28/20 13:00 09/02/20 12:59 08/29/20 15:15 Polyethylene Glycol (Miralax) 17 gm DAILYPRN PRN ORAL Constipation 08/17/20 19:45 09/16/20 19:44 08/19/20 17:56 Potassium Chloride (K-Dur) 20 meq DAILY ORAL 08/29/20 12:45 11/27/20 12:44 08/29/20 15:15 Promethazine HCl/ Codeine (Phenergan with Codeine) 5 ml Q6H PRN ORAL cough 08/17/20 19:45 09/16/20 19:44 08/29/20 00:38 Tamsulosin HCl (Flomax) 0.4 mg BID ORAL 08/18/20 09:00 09/17/20 08:59 08/29/20 08:54 Assessment/Plan Problems: (1) Nosocomial pneumonia (2) Hypoxia (3) 2019 novel coronavirus detected (4) CVA, old, hemiparesis (5) Hypertension (6) Diabetes mellitus (7) BPH (benign prostatic hyperplasia) Assessment/Plan no new complains cxr from 08/22: New or markedly worsened bilateral infiltrates, since prior exam of 5 days earlier 08/26 Suspect slight worsening of right lung infiltrates. 08/28 cxr: Worsening bilateral infiltrates, versus edema, bilaterally respiratory isolation off steroids and Remdesevir titrate fio2 to sat of 92% check inflammatory markers sliding scale diabetic diet 08/29: Right pleural effusion and infiltrates, unchanged Angelita Alarcon MD Aug 29, 2020 17:12
--- NOTE | 2020-08-29 18:15 | NUR ---
NURSE NOTES: Noted pt wet and dirty in the bed. RN and CABLE REELER offered to clean and change pt, pt refuses care at this time. stated"leave." RN educated pt the benefits of being cleaned and and dried. pt remains non-compliant.
--- NOTE | 2020-08-29 18:59 | NUR ---
HAND-OFF: Report given to [facility].
--- NOTE | 2020-08-29 19:18 | NUR ---
NURSE NOTES: Pt received from BRYAN Samano. Pt is resting comfortably in bed and denies any pain. Pt is bedbound due to weakness and uses cane at baseline. Pt is on cardiac monitoring SR and asymptomatic. PT is on 15LPM NRB and sating well; pt desats when off mask. Pt has LFA 22G SL patent with skin dry and intact. Bed is locked and in lowest position with call light within reach. Will continue to monitor.
[2020-08-29 20:00] VITALS: BP 131/59
[2020-08-30] VITALS: BP 125/51
[2020-08-30] MEDS: Promethazine/Codeine 5ml UD ORAL PRN (03:33)
[2020-08-30 04:00] VITALS: BP 122/57
[2020-08-30] MEDS: Piperacillin/Tazobactam 3.375 GM in NS 110 ML IVPB SCH ×3 (06:25→21:11)
[2020-08-30] MEDS: NovoLOG Insulin Flexpen SUBQ SCH ×4 (06:25→21:00)
--- NOTE | 2020-08-30 06:38 | Cardiac Electrophysiology PN ---
Assessment/Plan Assessment/Plan 1. COVID-19 pneumonia. S/P Remdesevir and dexamethasone On apixaban 5 bid, iv Abx and 15 liter NRB FM 2. Hypertension. Stable off antihypertensive agents. 3. Diabetes. 4. History of CVA with hemiparesis. 5. Benign prostatic hypertrophy. 6. Neno with HR high 40s, likely due to Covid. Asymptomatic DW RN Subjective Subjective On 15 liter NRBFM in Covid isolation. In SR. On Zosyn Objective Last 24 Hour Vital Signs Date Time Temp Pulse Resp B/P (MAP) Pulse Ox O2 Delivery O2 Flow Rate FiO2 08/30/20 04:00 97.8 87 20 122/57 (78) 98 08/30/20 04:00 66 08/30/20 00:00 68 08/30/20 00:00 98.2 77 20 125/51 (75) 95 08/29/20 21:00 Non-Rebreather 15.0 08/29/20 20:00 72 08/29/20 20:00 97.9 90 17 131/59 (83) 96 08/29/20 19:12 92 Non-Rebreather 15.0 100 08/29/20 16:00 72 08/29/20 16:00 98.7 77 21 141/65 (90) 93 08/29/20 12:00 75 08/29/20 11:54 97.3 76 19 121/67 (85) 97 08/29/20 09:00 Non-Rebreather 15.0 08/29/20 08:00 97.9 86 21 133/71 (91) 91 08/29/20 08:00 93 08/29/20 07:30 91 Non-Rebreather 15.0 100 Laboratory Tests Test 08/29/20 08:35 08/29/20 11:36 08/29/20 16:31 08/29/20 20:49 Arterial Blood pH 7.442 (7.350-7.450) Arterial Blood Partial Pressure CO2 39.3 mmHg (35.0-45.0) Arterial Blood Partial Pressure O2 56.9 mmHg (75.0-100.0) L Arterial Blood HCO3 26.2 mmol/L (22.0-26.0) H Arterial Blood Oxygen Saturation 90.1 % (95-100) L Arterial Blood Base Excess 2.1 (-2-2) H Brandon Test Positive POC Whole Blood Glucose 132 MG/DL (74-106) H 182 MG/DL (74-106) H Pending Objective HEAD AND NECK: No JVD.On NRB FM LUNGS: Coarse rhonchi. CARDIOVASCULAR: Regular S1 and S2 with no gallop or murmur. ABDOMEN: Soft. EXTREMITIES: No pitting edema. Sabino Goncalves MD Aug 30, 2020 06:38
--- NOTE | 2020-08-30 07:00 | NUR ---
NURSE HAND-OFF REPORT: Important Events on Shift:Pt received scheduled medications. Patient Status: Stable Diet: Cardiac Pending Orders: Pending Results/Labs: Pending MD notification: Latest Vital Signs: Temperature 97.8 , Pulse 87 , B/P 122 /57 , Respiratory Rate 20 , O2 SAT 98 , Nasal Cannula, O2 Flow Rate 15.0 . Vital Sign Comment: VSS EKG Rhythm: Sinus Rhythm Rhythm change?: N MD Notified?: Juancarlos Harris MD Response: No New Orders Received Latest Wong Fall Score: 40 Fall Risk: Medium Risk Safety Measures: Call light Within Reach, Bed Alarm Zone 1, Side Rails Side Rails x2, Bed position Low and Locked. Fall Precautions: Yellow Socks Yellow Gown Patient Fall Education Report given to BRYAN Spaulding.
--- NOTE | 2020-08-30 07:33 | NUR ---
NURSE NOTES: received report from BRYAN Ashton. Pt is stable on 15L NRB, unlabored even breathing, sp02 94% at this time. no s/s or complaint of distress at this time. Pt has R sided weakness noted. Sacral stage 1 noted, covered with optifoam. Pt has condom catheter. Pt IV FA 22g running zoysn, asymptomatic and intact. Pt bed low and locked, call light in reach and bed alarm on. pt verbalized understanding to call for help.
[2020-08-30 08:00] VITALS: BP 128/60
[2020-08-30] MEDS: Eliquis 5mg tablet ORAL SCH ×2 (08:14→17:14)
[2020-08-30] MEDS: Tamsulosin 0.4mg cap ORAL SCH ×2 (08:15→17:14)
--- NOTE | 2020-08-30 10:05 | NUR ---
NURSE NOTES: Pt refusing SCDs at this time. risks and benefits explained. pt refuses, says " put them back later"
[2020-08-30 12:00] VITALS: BP 122/58
--- NOTE | 2020-08-30 12:42 | Pulmonology Progress Note ---
Subjective ROS Limited/Unobtainable: No HEENT: Repors: no symptoms Respiratory: Reports: no symptoms Allergies: Coded Allergies: No Known Allergies (Unverified , 01/04/19) Objective Last 24 Hour Vital Signs Date Time Temp Pulse Resp B/P (MAP) Pulse Ox O2 Delivery O2 Flow Rate FiO2 08/30/20 12:00 97.9 90 22 122/58 (79) 92 08/30/20 09:00 Non-Rebreather 15.0 08/30/20 08:00 94 08/30/20 08:00 97.5 91 22 128/60 (82) 98 08/30/20 04:00 97.8 87 20 122/57 (78) 98 08/30/20 04:00 66 08/30/20 00:00 68 08/30/20 00:00 98.2 77 20 125/51 (75) 95 08/29/20 21:00 Non-Rebreather 15.0 08/29/20 20:00 72 08/29/20 20:00 97.9 90 17 131/59 (83) 96 08/29/20 19:12 92 Non-Rebreather 15.0 100 08/29/20 16:00 72 08/29/20 16:00 98.7 77 21 141/65 (90) 93 General Appearance: WD/WN HEENT: normocephalic, atraumatic, other - O2 Respiratory: chest wall non-tender, rhonchi - bilaterally - scattered Cardiovascular: normal peripheral pulses, normal rate, regular rhythm Abdomen: normal bowel sounds, soft, non tender Genitourinary: normal external genitalia Extremities: no clubbing Neurologic: alert, responsive, other - R side paresis Lymphatic: no neck adenopathy Musculoskeletal: atrophy - BLE Laboratory Tests 08/29/20 16:31: POC Whole Blood Glucose 182H 08/29/20 20:49: POC Whole Blood Glucose [Pending] 08/30/20 11:27: POC Whole Blood Glucose 148H Current Medications Medications (Trade) Dose Ordered Sig/Amaya Route PRN Reason Start Time Stop Time Status Last Admin Dose Admin Acetaminophen (Tylenol) 650 mg Q4H PRN ORAL Temp >100.5 08/17/20 19:45 09/16/20 19:44 Albuterol/ Ipratropium (Combivent Respimat) 1 puff Q4H PRN INH Shortness of Breath 08/18/20 13:00 09/17/20 12:59 Apixaban (Eliquis) 5 mg BID ORAL 08/18/20 18:00 11/16/20 17:59 08/30/20 08:14 Dextrose (Dextrose 50%) 25 ml Q30M PRN IV Hypoglycemia 08/18/20 11:45 11/16/20 11:44 Dextrose (Dextrose 50%) 50 ml Q30M PRN IV Hypoglycemia 08/18/20 11:45 11/16/20 11:44 Insulin Aspart (NovoLOG) BEFORE MEALS AND HS SUBQ 08/18/20 16:30 11/16/20 16:29 08/30/20 11:30 Ondansetron HCl (Zofran) 4 mg Q6H PRN IVP Nausea & Vomiting 08/17/20 19:45 09/16/20 19:44 Pantoprazole (Protonix) 40 mg DAILY ORAL 08/18/20 09:00 09/17/20 08:59 08/30/20 08:14 Piperacillin Sod/ Tazobactam Sod 3.375 gm/Sodium Chloride 110 ml @ 27.5 mls/hr EVERY 8 HOURS IVPB 08/28/20 13:00 09/02/20 12:59 08/30/20 06:25 Polyethylene Glycol (Miralax) 17 gm DAILYPRN PRN ORAL Constipation 08/17/20 19:45 09/16/20 19:44 08/19/20 17:56 Potassium Chloride (K-Dur) 20 meq DAILY ORAL 08/29/20 12:45 11/27/20 12:44 08/30/20 08:15 Promethazine HCl/ Codeine (Phenergan with Codeine) 5 ml Q6H PRN ORAL cough 08/17/20 19:45 09/16/20 19:44 08/30/20 03:33 Tamsulosin HCl (Flomax) 0.4 mg BID ORAL 08/18/20 09:00 09/17/20 08:59 08/30/20 08:15 Assessment/Plan Problems: (1) Nosocomial pneumonia (2) Hypoxia (3) 2019 novel coronavirus detected (4) CVA, old, hemiparesis (5) Hypertension (6) Diabetes mellitus (7) BPH (benign prostatic hyperplasia) Assessment/Plan afebrile wbc still high no new complains cxr from 08/22: New or markedly worsened bilateral infiltrates, since prior exam of 5 days earlier 08/26 Suspect slight worsening of right lung infiltrates. 08/28 cxr: Worsening bilateral infiltrates, versus edema, bilaterally respiratory isolation off steroids and Remdesevir titrate fio2 to sat of 92% check inflammatory markers sliding scale diabetic diet 08/29: Right pleural effusion and infiltrates, unchanged Angelita Alarcon MD Aug 30, 2020 12:42
[2020-08-30 14:41] LABS: INR 1.4 (0.9-1.1)
--- NOTE | 2020-08-30 14:52 | Nephrology Progress Note ---
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 Hypertension Diabetes, hypoalbuminemia BPH Plan August 30: No CHEM panel drawn today. Remains full code. On nonrebreather mask. Continue to monitor renal parameters. August 29: Labs reviewed. Abnormal electrolyte addressed. Continue per consultants. August 28: Labs reviewed. Magnesium and phosphorus replacement ordered. Continue per consultants. August 27: No labs drawn today. Continue per consultants. Will check lab in a.m. August 26: White blood cells 14.9. Renal parameters stable. Continue per consultants. August 25: Labs are [place]BCs [place] [address]. Renal parameters stable. August 24: Status quo. No labs drawn today. Will check lab tomorrow. August 23: Status quo. Labs reviewed. Renal parameters are stable. Continue per consultants. August 22: Status quo. Stable renal parameters. Continue per consultants. August 21: Labs were reviewed. Renal parameters are stable. Continue per consultants. August 20: Labs reviewed. Creatinine now normalized. Electrolytes within normal limit. Continue per consultants. Antibiotics Slow hydrate with normal saline Monitor renal parameters Keep the blood pressure blood sugar in check Per orders Subjective ROS Limited/Unobtainable: No Constitutional: Reports: malaise Objective Objective Last 24 Hour Vital Signs Date Time Temp Pulse Resp B/P (MAP) Pulse Ox O2 Delivery O2 Flow Rate FiO2 08/30/20 12:00 92 08/30/20 12:00 97.9 90 22 122/58 (79) 92 08/30/20 09:00 Non-Rebreather 15.0 08/30/20 08:00 94 08/30/20 08:00 97.5 91 22 128/60 (82) 98 08/30/20 04:00 97.8 87 20 122/57 (78) 98 08/30/20 04:00 66 08/30/20 00:00 68 08/30/20 00:00 98.2 77 20 125/51 (75) 95 08/29/20 21:00 Non-Rebreather 15.0 08/29/20 20:00 72 08/29/20 20:00 97.9 90 17 131/59 (83) 96 08/29/20 19:12 92 Non-Rebreather 15.0 100 08/29/20 16:00 72 08/29/20 16:00 98.7 77 21 141/65 (90) 93 Laboratory Tests 08/29/20 16:31: POC Whole Blood Glucose 182H 08/29/20 20:49: POC Whole Blood Glucose [Pending] 08/30/20 11:27: POC Whole Blood Glucose 148H 08/30/20 13:50: Prothrombin Time 14.8H, Prothromb Time International Ratio 1.4H, Activated Partial Thromboplast Time 34H Height (Feet): 5 Height (Inches): 8.00 Weight (Pounds): 163 General Appearance: lethargic EENT: other - On nonrebreather mask Cardiovascular: tachycardia Respiratory/Chest: decreased breath sounds Abdomen: distended Objective No change Devonte Zuniga MD Aug 30, 2020 14:52
--- NOTE | 2020-08-30 15:54 | NUR ---
NURSE NOTES: RT titrated Pt from NRB to 10LPM ventui at 50% fio2. pt saturating at 92-93% spo2, even respirations. pt verbalized understanding to call for help.
--- NOTE | 2020-08-30 15:59 | NUR ---
Titrated O2 from 100%NRM to 50% V/M. Appear to [facility] well. SpO2 92-93%
[2020-08-30 16:00] VITALS: BP 133/60
--- NOTE | 2020-08-30 17:33 | NUR ---
NURSE HAND-OFF REPORT: Important Events on Shift: titrated to venturi 50% fio2 at 15LPM// new IV on RFA22g, Patient Status: [] Diet: [] Pending Orders: [] Pending Results/Labs:[] Pending MD notification:[] Latest Vital Signs: Temperature 97.7 , Pulse 88 , B/P 133 /60 , Respiratory Rate 22 , O2 SAT 92 , Nasal Cannula, O2 Flow Rate 10.0 . Vital Sign Comment: [] EKG Rhythm: SR w BBB Rhythm change?: N Notified?: Juancarlos Harris MD Response: No New Orders Received Latest Wong Fall Score: 40 Fall Risk: Medium Risk Safety Measures: Call light Within Reach, Bed Alarm Zone 1, Side Rails Side Rails x3, Bed position Low and Locked. Fall Precautions: Yellow Socks Yellow Gown Patient Fall Education Report to be given. Addendum: 08/30/20 at 1736 by Chelly Rosario RN RN NURSE HAND-OFF REPORT: Important Events on Shift:titrated to venturi 50% fio2 at 15LPM// new IV on RFA22g// found Pts belongings in cupboard, updated belongings list// Patient Status: fc, stable Diet: cardiac, finely chopped, glucerna 3x 1:1 feed, pills are ok Pending Orders: Pending Results/Labs: Pending MD notification: Latest Vital Signs: Temperature 97.7 , Pulse 88 , B/P 133 /60 , Respiratory Rate 22 , O2 SAT 92 , Nasal Cannula, O2 Flow Rate 10.0 . Vital Sign Comment: EKG Rhythm: SR w BBB Rhythm change?: N Notified?: Juancarlos Harris MD Response: No New Orders Received Latest Wong Fall Score: 40 Fall Risk: Medium Risk Safety Measures: Call light Within Reach, Bed Alarm Zone 1, Side Rails Side Rails x3, Bed position Low and Locked. Fall Precautions: Yellow Socks Yellow Gown Patient Fall Education report to be given Addendum: 08/30/20 at 1927 by Chelly Rosario RN RN Report endorsed to BRYAN Vazquez. Pt is stable and resting in bed.
--- NOTE | 2020-08-30 19:30 | NUR ---
NURSE NOTES: Received pt and report from BRYAN Spaulding. Observed pt resting in bed with both closed; arousable to voice. Pt is A/Ox3-4. ekg monitor tech is in placed; pt is SR w/BBB. IV site intact, asymptomatic, and patent. Pt is on a venturi mask at 15LPM, 50% FiO2; sating at 93%. Bed is in the lowest position and locked. Call light and bedside table is within reach. No signs/symptoms of acute distress noted. Will continue plan of care.
[2020-08-30 20:00] VITALS: BP 119/53
--- NOTE | 2020-08-30 22:33 | General Progress Note ---
Subjective ROS Limited/Unobtainable: Yes Allergies: Coded Allergies: No Known Allergies (Unverified , 01/04/19) Objective Last 24 Hour Vital Signs Date Time Temp Pulse Resp B/P (MAP) Pulse Ox O2 Delivery O2 Flow Rate FiO2 08/30/20 16:00 97.7 88 22 133/60 (84) 92 08/30/20 16:00 92 08/30/20 12:00 92 08/30/20 12:00 97.9 90 22 122/58 (79) 92 08/30/20 09:19 Venturi Mask 10.0 08/30/20 09:00 Non-Rebreather 15.0 08/30/20 08:00 94 08/30/20 08:00 97.5 91 22 128/60 (82) 98 08/30/20 04:00 97.8 87 20 122/57 (78) 98 08/30/20 04:00 66 08/30/20 00:00 68 08/30/20 00:00 98.2 77 20 125/51 (75) 95 Laboratory Tests 08/30/20 11:27: POC Whole Blood Glucose 148H 08/30/20 13:50: Prothrombin Time 14.8H, Prothromb Time International Ratio 1.4H, Activated Partial Thromboplast Time 34H 08/30/20 16:08: POC Whole Blood Glucose 194H 08/30/20 21:12: POC Whole Blood Glucose [Pending] Height (Feet): 5 Height (Inches): 8.00 Weight (Pounds): 163 Assessment/Plan Problem List: (1) Renal failure (ARF), acute on chronic ICD Codes: N17.9 - Acute kidney failure, unspecified; N18.9 - Chronic kidney disease, unspecified SNOMED: 413210924 (2) Diabetes mellitus ICD Codes: E11.9 - Type 2 diabetes mellitus without complications SNOMED: 86617511 (3) Sepsis due to urinary tract infection ICD Codes: A41.9 - Sepsis, unspecified organism; N39.0 - Urinary tract infection, site not specified SNOMED: 715705184 (4) Episode of generalized weakness ICD Codes: R53.1 - Weakness SNOMED: 21230102 (5) Renal failure (ARF), acute on chronic ICD Codes: N17.9 - Acute kidney failure, unspecified; N18.9 - Chronic kidney disease, unspecified SNOMED: 868191096 (6) CVA, old, hemiparesis ICD Codes: I69.359 - Hemiplegia and hemiparesis following cerebral infarction affecting unspecified side SNOMED: 795911597 (7) Hypoxia ICD Codes: R09.02 - Hypoxemia SNOMED: 193668394 (8) 2019 novel coronavirus detected ICD Codes: U07.1 - COVID-19 SNOMED: 7002310205139820 (9) BPH (benign prostatic hyperplasia) ICD Codes: N40.0 - Benign prostatic hyperplasia without lower urinary tract symptoms SNOMED: 683005961 Status: progressing, unchanged Assessment/Plan: covid + no fever vitls stable weak malnutrtion s/p hypoxic cva azotemia Jose David Headley MD Aug 30, 2020 22:33
[2020-08-31] VITALS: BP 111/48
[2020-08-31 04:00] VITALS: BP 112/49
[2020-08-31] MEDS: Piperacillin/Tazobactam 3.375 GM in NS 110 ML IVPB SCH ×3 (06:25→22:03)
[2020-08-31] MEDS: NovoLOG Insulin Flexpen SUBQ SCH ×4 (06:30→21:00)
--- NOTE | 2020-08-31 07:03 | NUR ---
NURSE HAND-OFF REPORT: Important Events on Shift: No significant changes during shift superintendent caustic cresylate. Pt continues to be on venturi mask at 15L, 50% FiO2. O2 saturation between 90-93%. Patient Status: Stable Diet: Cardiac Pending Orders: US guided thoracentesis Pending Results/Labs: N Pending MD notification: N Latest Vital Signs: Temperature 98.6 , Pulse 81 , B/P 112 /49 , Respiratory Rate 21 , O2 SAT 92 , Nasal Cannula, O2 Flow Rate 15.0 . EKG Rhythm: SR w/ BBB Rhythm change?: N Latest Wong Fall Score: 55 Fall Risk: High Risk Safety Measures: Call light Within Reach, Bed Alarm Zone 1, Side Rails Side Rails x3, Bed position Low and Locked. Fall Precautions: Yellow Socks Yellow Gown Door Sign Patient Fall Education Report given to BRYAN Spaulding.
--- NOTE | 2020-08-31 07:30 | NUR ---
NURSE NOTES: received report update from samantha RN. Pt is siting up high fowlers eating breakfast with assist of [employer]. Pt is stable on 15L venturi fio2 50% unlabored even breathing, sp02 92% at this time. no s/s or complaint of distress at this time. Pt has R sided weakness noted. Sacral stage 1 noted, covered with optifoam. Pt has condom catheter. Pt IV FA 22g running zoysn, asymptomatic and intact. IV on RFA 22g, SL asymptomatic and intact. Pt bed low and locked, call light in reach and bed alarm on. pt verbalized understanding to call for help.
--- NOTE | 2020-08-31 07:40 | NUR ---
NURSE NOTES: Assisted Pt during breakfast time, Pt is able to independently eat with left arm. Assistance needed in setting up food and opening items.
[2020-08-31 08:00] VITALS: BP 115/51
[2020-08-31] MEDS: Eliquis 5mg tablet ORAL SCH ×2 (08:09→17:36)
[2020-08-31] MEDS: Tamsulosin 0.4mg cap ORAL SCH ×2 (08:10→17:36)
--- NOTE | 2020-08-31 09:13 | NUR ---
NURSE NOTES: Spoke to Pt sister regarding Pt condition, Pt family updated. Pt is stable
--- NOTE | 2020-08-31 10:45 | NUR ---
NURSE NOTES: Pt refused full bed bath today. Assisted Pt in cleaning face, and arms, changed gown, changed linens and socks. Pt had BM, changed chadd, changed condom catheter and cleaned Pt. pt is able to turn with assist. Pt repositioned at this time. R sided weakness 2/5. bed low and locked, call light in reach and bed alarm on. Pt personal items within reach.
--- NOTE | 2020-08-31 10:56 | Infectious Diseases Prog Note ---
Assessment/Plan 84yo M with: Afebrile Normal WBC Lymphopenia COVID pneumonia, severe Acute hypoxic resp failure 2/2 COVID pna UTI/cystitis 08/17 BCx NTD UCx +ESBL E.coli CXR: No significant change in tortuosity/ectasia of the thoracic aorta. Negative for cardiac enlargement. Negative for focal consolidation, pneumothorax or pleural fluid collections. COVID rapid test positive, PCR positive 08/22 CXR: New or markedly worsened bilateral infiltrates, since prior exam of 5 days earlier 08/28 CXR: Worsening bilateral infiltrates, versus edema, bilaterally 08/29 CXR: Right pleural effusion and infiltrates, unchanged. Improving left basilar atelectasis and infiltrate Cr 1.8, improving 08/19 Renal US: Negative for hydronephrosis. 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 Bilateral renal cysts, large on the right. Plan: Cont Zosyn #4/7 given worsening resp status Resp cx if able Recommend diuresis, BNP >7000k Trend WBC 08/27 SP dex #10 08/24 SP RDV #5, ertapenem #5 for UTI 08/23 SP Azithro #5 Convalescent plasma unfortunately not available at this institution so unable to give, additionally unclear if it improves mortality/outcomes or not Monitor CBC/CMP Monitor temp curve, hemodynamics Monitor resp status D/w RN Thank you for this consult. [facility] will continue to follow. Subjective Allergies: Coded Allergies: No Known Allergies (Unverified , 01/04/19) AF WBC 16.4, stable NAD on 15L Venturi mask Objective Last 24 Hour Vital Signs Date Time Temp Pulse Resp B/P (MAP) Pulse Ox O2 Delivery O2 Flow Rate FiO2 08/31/20 09:00 Venturi Mask 15.0 08/31/20 08:00 98.8 106 22 115/51 (72) 93 08/31/20 08:00 96 08/31/20 04:00 77 08/31/20 04:00 98.6 81 21 112/49 (70) 92 08/31/20 00:00 99.0 82 22 111/48 (69) 93 08/31/20 00:00 82 08/30/20 21:00 Venturi Mask 15.0 08/30/20 20:00 98.1 91 20 119/53 (75) 95 08/30/20 20:00 79 08/30/20 16:00 97.7 88 22 133/60 (84) 92 08/30/20 16:00 92 08/30/20 12:00 92 08/30/20 12:00 97.9 90 22 122/58 (79) 92 Height (Feet): 5 Height (Inches): 8.00 Weight (Pounds): 163 Gen: NAD HEENT: NCAT Pulm: BL chest rise Abd: Non-distended Ext: No c/c/e Skin: No visible rashes Neuro: Awake, interactive Laboratory Tests Test 08/30/20 11:27 08/30/20 13:50 08/30/20 16:08 08/30/20 21:12 POC Whole Blood Glucose 148 MG/DL (74-106) H 194 MG/DL (74-106) H Pending Prothrombin Time 14.8 SEC (9.30-11.50) H Prothromb Time International Ratio 1.4 (0.9-1.1) H Activated Partial Thromboplast Time 34 SEC (23-33) H Test 08/31/20 06:33 POC Whole Blood Glucose 128 MG/DL (74-106) H Current Medications Medications (Trade) Dose Ordered Sig/Amaya Route PRN Reason Start Time Stop Time Status Last Admin Dose Admin Acetaminophen (Tylenol) 650 mg Q4H PRN ORAL Temp >100.5 08/17/20 19:45 09/16/20 19:44 Albuterol/ Ipratropium (Combivent Respimat) 1 puff Q4H PRN INH Shortness of Breath 08/18/20 13:00 09/17/20 12:59 Apixaban (Eliquis) 5 mg BID ORAL 08/18/20 18:00 11/16/20 17:59 08/31/20 08:09 Dextrose (Dextrose 50%) 25 ml Q30M PRN IV Hypoglycemia 08/18/20 11:45 11/16/20 11:44 Dextrose (Dextrose 50%) 50 ml Q30M PRN IV Hypoglycemia 08/18/20 11:45 11/16/20 11:44 Insulin Aspart (NovoLOG) BEFORE MEALS AND HS SUBQ 08/18/20 16:30 11/16/20 16:29 08/30/20 16:32 Ondansetron HCl (Zofran) 4 mg Q6H PRN IVP Nausea & Vomiting 08/17/20 19:45 09/16/20 19:44 Pantoprazole (Protonix) 40 mg DAILY ORAL 08/18/20 09:00 09/17/20 08:59 08/31/20 08:10 Piperacillin Sod/ Tazobactam Sod 3.375 gm/Sodium Chloride 110 ml @ 27.5 mls/hr EVERY 8 HOURS IVPB 08/28/20 13:00 09/02/20 12:59 08/31/20 06:25 Polyethylene Glycol (Miralax) 17 gm DAILYPRN PRN ORAL Constipation 08/17/20 19:45 09/16/20 19:44 08/19/20 17:56 Potassium Chloride (K-Dur) 20 meq DAILY ORAL 08/29/20 12:45 11/27/20 12:44 08/31/20 08:09 Promethazine HCl/ Codeine (Phenergan with Codeine) 5 ml Q6H PRN ORAL cough 08/17/20 19:45 09/16/20 19:44 08/30/20 03:33 Tamsulosin HCl (Flomax) 0.4 mg BID ORAL 08/18/20 09:00 09/17/20 08:59 08/31/20 08:10 Aneta Nguyen M.D. Aug 31, 2020 10:56
[2020-08-31 12:00] VITALS: BP 112/48
--- NOTE | 2020-08-31 12:00 | NUR ---
NURSE NOTES: Set up Pt lunch over bed. pt requesting assistance throughout mealtime but is able to independently eat. Meal within reach, pt began eating himself. Notified [employer] to assist Pt when free.
--- NOTE | 2020-08-31 12:43 | NUR ---
NURSE NOTES: pt rang call light. found Pt drinking soup independently but is requesting help. Upon feeding Pt, pt grabbed my hand and said "I dont want this", offered another food item, Pt refused and continued saying we did not assist him but we did and he is able to eat independently. Asked Pt if he wanted pudding, also refused. tried to offer other food items, refused again. Pt repeatedly saying he needs help but refuses help from me. Left Pt with food and utensils within reach on bedside table. requested Anne RAUSCH to assist Pt when free.
[2020-08-31 12:55] LABS: HEMATOCRIT 41.8 % (42.0-52.0); HEMOGLOBIN 13.6 G/DL (14.2-18.0); MEAN CORPUSCULAR VOLUME 82 FL (80-99); PLATELET COUNT 168 K/UL (150-450); RED BLOOD COUNT 5.11 M/UL (4.70-6.10); RED CELL DISTRIBUTION WIDTH 14.2 % (11.6-14.8); WHITE BLOOD COUNT 16.4 K/UL (4.8-10.8)
[2020-08-31 13:14] LABS: ALBUMIN 1.7 G/DL (3.4-5.0); ALBUMIN/GLOBULIN RATIO 0.4 (1.0-2.7); BILIRUBIN,TOTAL 0.8 MG/DL (0.2-1.0); CALCIUM 8.3 MG/DL (8.5-10.1); CREATININE 1.2 MG/DL (0.55-1.30); POTASSIUM 4.4 MMOL/L (3.5-5.1)
--- NOTE | 2020-08-31 13:36 | Nephrology Progress Note ---
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 Hypertension Diabetes, hypoalbuminemia BPH Plan August 31: Labs reviewed. Remains on Venturi mask. Full code. Continue to monitor renal parameters. August 30: No CHEM panel drawn today. Remains full code. On nonrebreather mask. Continue to monitor renal parameters. August 29: Labs reviewed. Abnormal electrolyte addressed. Continue per consultants. August 28: Labs reviewed. Magnesium and phosphorus replacement ordered. Continue per consultants. August 27: No labs drawn today. Continue per consultants. Will check lab in a.m. August 26: White blood cells 14.9. Renal parameters stable. Continue per consultants. August 25: Labs are [place]BCs [place] [address]. Renal parameters stable. August 24: Status quo. No labs drawn today. Will check lab tomorrow. August 23: Status quo. Labs reviewed. Renal parameters are stable. Continue per consultants. August 22: Status quo. Stable renal parameters. Continue per consultants. August 21: Labs were reviewed. Renal parameters are stable. Continue per consultants. August 20: Labs reviewed. Creatinine now normalized. Electrolytes within normal limit. Continue per consultants. Antibiotics Slow hydrate with normal saline Monitor renal parameters Keep the blood pressure blood sugar in check Per orders Subjective ROS Limited/Unobtainable: Yes Objective Objective Last 24 Hour Vital Signs Date Time Temp Pulse Resp B/P (MAP) Pulse Ox O2 Delivery O2 Flow Rate FiO2 08/31/20 12:00 98.7 89 20 112/48 (69) 94 08/31/20 12:00 82 08/31/20 09:00 Venturi Mask 15.0 08/31/20 08:00 98.8 106 22 115/51 (72) 93 08/31/20 08:00 96 08/31/20 04:00 77 08/31/20 04:00 98.6 81 21 112/49 (70) 92 08/31/20 00:00 99.0 82 22 111/48 (69) 93 08/31/20 00:00 82 08/30/20 21:00 Venturi Mask 15.0 08/30/20 20:00 98.1 91 20 119/53 (75) 95 08/30/20 20:00 79 08/30/20 16:00 97.7 88 22 133/60 (84) 92 08/30/20 16:00 92 Laboratory Tests 08/30/20 13:50: Prothrombin Time 14.8H, Prothromb Time International Ratio 1.4H, Activated Partial Thromboplast Time 34H 08/30/20 16:08: POC Whole Blood Glucose 194H 08/30/20 21:12: POC Whole Blood Glucose [Pending] 08/31/20 06:33: POC Whole Blood Glucose 128H 08/31/20 11:29: POC Whole Blood Glucose 127H 08/31/20 11:40: White Blood Count 16.4H, Red Blood Count 5.11, Hemoglobin 13.6L, Hematocrit 41.8L, Mean Corpuscular Volume 82, Mean Corpuscular Hemoglobin 26.5L, Mean Corpuscular Hemoglobin Concent 32.4, Red Cell Distribution Width 14.2, Platelet Count 168, Mean Platelet Volume 7.3, Neutrophils (%) (Auto) , Lymphocytes (%) (Auto) , Monocytes (%) (Auto) , Eosinophils (%) (Auto) , Basophils (%) (Auto) , Differential Total Cells Counted 100, Neutrophils % (Manual) 88H, Lymphocytes % (Manual) 5L, Monocytes % (Manual) 7, Eosinophils % (Manual) 0, Basophils % (Manual) 0, Band Neutrophils 0, Platelet Estimate Adequate, Platelet Morphology Normal, Red Blood Cell Morphology Normal, Sodium Level 145, Potassium Level 4.4, Chloride Level 111H, Carbon Dioxide Level 34H, Anion Gap 0L, Blood Urea Nitrogen 22H, Creatinine 1.2, Estimat Glomerular Filtration Rate 57.4, Glucose Level 131H, Calcium Level 8.3L, Total Bilirubin 0.8, Aspartate Amino Transf (AST/SGOT) 13L, Alanine Aminotransferase (ALT/SGPT) 11L, Alkaline Phosphatase 71, Total Protein 5.6L, Albumin 1.7L, Globulin 3.9, Albumin/Globulin Ratio 0.4L Height (Feet): 5 Height (Inches): 8.00 Weight (Pounds): 163 General Appearance: no apparent distress, lethargic EENT: other - On Venturi mask Cardiovascular: tachycardia, other - Variable Respiratory/Chest: decreased breath sounds Abdomen: distended Objective No change Devonte Zuniga MD Aug 31, 2020 13:36
--- NOTE | 2020-08-31 15:48 | Pulmonology Progress Note ---
Subjective ROS Limited/Unobtainable: Yes HEENT: Repors: no symptoms Respiratory: Reports: no symptoms Allergies: Coded Allergies: No Known Allergies (Unverified , 01/04/19) Objective Last 24 Hour Vital Signs Date Time Temp Pulse Resp B/P (MAP) Pulse Ox O2 Delivery O2 Flow Rate FiO2 08/31/20 12:00 98.7 89 20 112/48 (69) 94 08/31/20 12:00 82 08/31/20 09:00 Venturi Mask 15.0 08/31/20 08:00 98.8 106 22 115/51 (72) 93 08/31/20 08:00 96 08/31/20 04:00 77 08/31/20 04:00 98.6 81 21 112/49 (70) 92 08/31/20 00:00 99.0 82 22 111/48 (69) 93 08/31/20 00:00 82 08/30/20 21:00 Venturi Mask 15.0 08/30/20 20:00 98.1 91 20 119/53 (75) 95 08/30/20 20:00 79 08/30/20 16:00 97.7 88 22 133/60 (84) 92 08/30/20 16:00 92 General Appearance: WD/WN HEENT: normocephalic, atraumatic, other - O2 Respiratory: chest wall non-tender, rhonchi - bilaterally - scattered Cardiovascular: normal peripheral pulses, normal rate, regular rhythm Abdomen: normal bowel sounds, soft, non tender Genitourinary: normal external genitalia Extremities: no clubbing Neurologic: alert, responsive, other - R side paresis Lymphatic: no neck adenopathy Musculoskeletal: atrophy - BLE Laboratory Tests 08/30/20 16:08: POC Whole Blood Glucose 194H 08/30/20 21:12: POC Whole Blood Glucose [Pending] 08/31/20 06:33: POC Whole Blood Glucose 128H 08/31/20 11:29: POC Whole Blood Glucose 127H 08/31/20 11:40: White Blood Count 16.4H, Red Blood Count 5.11, Hemoglobin 13.6L, Hematocrit 41.8L, Mean Corpuscular Volume 82, Mean Corpuscular Hemoglobin 26.5L, Mean Corpuscular Hemoglobin Concent 32.4, Red Cell Distribution Width 14.2, Platelet Count 168, Mean Platelet Volume 7.3, Neutrophils (%) (Auto) , Lymphocytes (%) (Auto) , Monocytes (%) (Auto) , Eosinophils (%) (Auto) , Basophils (%) (Auto) , Differential Total Cells Counted 100, Neutrophils % (Manual) 88H, Lymphocytes % (Manual) 5L, Monocytes % (Manual) 7, Eosinophils % (Manual) 0, Basophils % (Manual) 0, Band Neutrophils 0, Platelet Estimate Adequate, Platelet Morphology Normal, Red Blood Cell Morphology Normal, Sodium Level 145, Potassium Level 4.4, Chloride Level 111H, Carbon Dioxide Level 34H, Anion Gap 0L, Blood Urea Nitrogen 22H, Creatinine 1.2, Estimat Glomerular Filtration Rate 57.4, Glucose Level 131H, Calcium Level 8.3L, Total Bilirubin 0.8, Aspartate Amino Transf (AST/SGOT) 13L, Alanine Aminotransferase (ALT/SGPT) 11L, Alkaline Phosphatase 71, Total Protein 5.6L, Albumin 1.7L, Globulin 3.9, Albumin/Globulin Ratio 0.4L Current Medications Medications (Trade) Dose Ordered Sig/Amaya Route PRN Reason Start Time Stop Time Status Last Admin Dose Admin Acetaminophen (Tylenol) 650 mg Q4H PRN ORAL Temp >100.5 08/17/20 19:45 09/16/20 19:44 Albuterol/ Ipratropium (Combivent Respimat) 1 puff Q4H PRN INH Shortness of Breath 08/18/20 13:00 09/17/20 12:59 Apixaban (Eliquis) 5 mg BID ORAL 08/18/20 18:00 11/16/20 17:59 08/31/20 08:09 Dextrose (Dextrose 50%) 25 ml Q30M PRN IV Hypoglycemia 08/18/20 11:45 11/16/20 11:44 Dextrose (Dextrose 50%) 50 ml Q30M PRN IV Hypoglycemia 08/18/20 11:45 11/16/20 11:44 Insulin Aspart (NovoLOG) BEFORE MEALS AND HS SUBQ 08/18/20 16:30 11/16/20 16:29 08/30/20 16:32 Ondansetron HCl (Zofran) 4 mg Q6H PRN IVP Nausea & Vomiting 08/17/20 19:45 09/16/20 19:44 Pantoprazole (Protonix) 40 mg DAILY ORAL 08/18/20 09:00 09/17/20 08:59 08/31/20 08:10 Piperacillin Sod/ Tazobactam Sod 3.375 gm/Sodium Chloride 110 ml @ 27.5 mls/hr EVERY 8 HOURS IVPB 08/28/20 13:00 09/02/20 12:59 08/31/20 13:48 Polyethylene Glycol (Miralax) 17 gm DAILYPRN PRN ORAL Constipation 08/17/20 19:45 09/16/20 19:44 08/19/20 17:56 Potassium Chloride (K-Dur) 20 meq DAILY ORAL 08/29/20 12:45 11/27/20 12:44 08/31/20 08:09 Promethazine HCl/ Codeine (Phenergan with Codeine) 5 ml Q6H PRN ORAL cough 08/17/20 19:45 09/16/20 19:44 08/30/20 03:33 Tamsulosin HCl (Flomax) 0.4 mg BID ORAL 08/18/20 09:00 09/17/20 08:59 08/31/20 08:10 Assessment/Plan Problems: (1) Nosocomial pneumonia (2) Hypoxia (3) 2019 novel coronavirus detected (4) CVA, old, hemiparesis (5) Hypertension (6) Diabetes mellitus (7) BPH (benign prostatic hyperplasia) Assessment/Plan afebrile wbc still high no new complains cxr from 08/22: New or markedly worsened bilateral infiltrates, since prior exam of 5 days earlier 08/26 Suspect slight worsening of right lung infiltrates. 08/28 cxr: Worsening bilateral infiltrates, versus edema, bilaterally respiratory isolation off steroids and Remdesevir titrate fio2 to sat of 92% check inflammatory markers sliding scale diabetic diet 08/29: Right pleural effusion and infiltrates, unchanged Angelita Alarcon MD Aug 31, 2020 15:48
[2020-08-31 16:00] VITALS: BP 110/52
--- NOTE | 2020-08-31 16:50 | NUR ---
NURSE NOTES: assisted Pt in setting up dinner, Pt refusing at this time, said he "has no appetite", notified Pt to ring call light when hungry for assistance. Addendum: 08/31/20 at 1745 by Chelly Rosario RN RN Pt continues to refuse to eat, says he "has no appetite and only wants the juices". left Pt juices as requested. Medication given with applesauce.
--- NOTE | 2020-08-31 17:17 | NUR ---
NURSE HAND-OFF REPORT: Important Events on Shift: Patient Status: fc, stable Diet: cardiac, pills ok, glucerna 3x, finely chopped Pending Orders: Pending Results/Labs: Pending MD notification: awaiting Pt thoracentesis consent Latest Vital Signs: Temperature 97.9 , Pulse 89 , B/P 110 /52 , Respiratory Rate 22 , O2 SAT 94 , venturi O2 Flow Rate 15.0 . Vital Sign Comment: EKG Rhythm: SR w/ BBB Rhythm change?: N MD Notified?: Juancarlos Harris MD Response: No New Orders Received Latest Wong Fall Score: 55 Fall Risk: High Risk Safety Measures: Call light Within Reach, Bed Alarm Zone 1, Side Rails Side Rails x3, Bed position Low and Locked. Fall Precautions: Yellow Socks Yellow Gown Door Sign Patient Fall Education Report to be given. Addendum: 08/31/20 at 1931 by Chelly Rosario RN RN Pt is stable, report given to BRYAN Galaviz.
--- NOTE | 2020-08-31 19:05 | NUR ---
NURSE NOTES: Received report from Chelly Duong RN. Pt in stable condition, VS WNL, denies pain. No signs or symptoms of pain or distress noted at this time. Will continue plan of care and close monitoring.
[2020-08-31 20:00] VITALS: BP 112/50
--- NOTE | 2020-08-31 21:11 | Cardiac Electrophysiology PN ---
Assessment/Plan Assessment/Plan 1. COVID-19 pneumonia. S/P Remdesevir and dexamethasone On apixaban 5 bid, iv Abx and 15 liter NRB FM 2. Hypertension. Stable off antihypertensive agents. 3. Diabetes. 4. History of CVA with hemiparesis. 5. Benign prostatic hypertrophy. 6. Neno with HR high 40s, likely due to Covid. Asymptomatic 7. Right pleural effusion. May need thoracentesis DW RN Subjective Subjective On 15 liter NRBFM in Covid isolation. In SR. On Zosyn Thoracentesis is pending Objective Last 24 Hour Vital Signs Date Time Temp Pulse Resp B/P (MAP) Pulse Ox O2 Delivery O2 Flow Rate FiO2 08/31/20 20:23 91 Non-Rebreather 15.0 100 08/31/20 16:00 97.9 86 22 110/52 (71) 94 08/31/20 16:00 89 08/31/20 12:00 98.7 89 20 112/48 (69) 94 08/31/20 12:00 82 08/31/20 09:00 Venturi Mask 15.0 08/31/20 08:00 98.8 106 22 115/51 (72) 93 08/31/20 08:00 96 08/31/20 04:00 77 08/31/20 04:00 98.6 81 21 112/49 (70) 92 08/31/20 00:00 99.0 82 22 111/48 (69) 93 08/31/20 00:00 82 Laboratory Tests Test 08/30/20 21:12 08/31/20 06:33 08/31/20 11:29 08/31/20 11:40 POC Whole Blood Glucose Pending 128 MG/DL (74-106) H 127 MG/DL (74-106) H White Blood Count 16.4 K/UL (4.8-10.8) H Red Blood Count 5.11 M/UL (4.70-6.10) Hemoglobin 13.6 G/DL (14.2-18.0) L Hematocrit 41.8 % (42.0-52.0) L Mean Corpuscular Volume 82 FL (80-99) Mean Corpuscular Hemoglobin 26.5 PG (27.0-31.0) L Mean Corpuscular Hemoglobin Concent 32.4 G/DL (32.0-36.0) Red Cell Distribution Width 14.2 % (11.6-14.8) Platelet Count 168 K/UL (150-450) Mean Platelet Volume 7.3 FL (6.5-10.1) Neutrophils (%) (Auto) % (45.0-75.0) Lymphocytes (%) (Auto) % (20.0-45.0) Monocytes (%) (Auto) % (1.0-10.0) Eosinophils (%) (Auto) % (0.0-3.0) Basophils (%) (Auto) % (0.0-2.0) Differential Total Cells Counted 100 Neutrophils % (Manual) 88 % (45-75) H Lymphocytes % (Manual) 5 % (20-45) L Monocytes % (Manual) 7 % (1-10) Eosinophils % (Manual) 0 % (0-3) Basophils % (Manual) 0 % (0-2) Band Neutrophils 0 % (0-8) Platelet Estimate Adequate Platelet Morphology Normal Red Blood Cell Morphology Normal Sodium Level 145 MMOL/L (136-145) Potassium Level 4.4 MMOL/L (3.5-5.1) Chloride Level 111 MMOL/L (98-107) H Carbon Dioxide Level 34 MMOL/L (21-32) H Anion Gap 0 mmol/L (5-15) L Blood Urea Nitrogen 22 mg/dL (7-18) H Creatinine 1.2 MG/DL (0.55-1.30) Estimat Glomerular Filtration Rate 57.4 mL/min (>60) Glucose Level 131 MG/DL (74-106) H Calcium Level 8.3 MG/DL (8.5-10.1) L Total Bilirubin 0.8 MG/DL (0.2-1.0) Aspartate Amino Transf (AST/SGOT) 13 U/L (15-37) L Alanine Aminotransferase (ALT/SGPT) 11 U/L (12-78) L Alkaline Phosphatase 71 U/L (46-116) Total Protein 5.6 G/DL (6.4-8.2) L Albumin 1.7 G/DL (3.4-5.0) L Globulin 3.9 g/dL Albumin/Globulin Ratio 0.4 (1.0-2.7) L Test 08/31/20 16:19 POC Whole Blood Glucose 131 MG/DL (74-106) H Objective HEAD AND NECK: No JVD.On NRB FM LUNGS: Coarse rhonchi. CARDIOVASCULAR: Regular S1 and S2 with no gallop or murmur. ABDOMEN: Soft. EXTREMITIES: No pitting edema. Sabino Goncalves MD Aug 31, 2020 21:10
--- NOTE | 2020-08-31 21:45 | General Progress Note ---
Subjective ROS Limited/Unobtainable: Yes Allergies: Coded Allergies: No Known Allergies (Unverified , 01/04/19) Objective Last 24 Hour Vital Signs Date Time Temp Pulse Resp B/P (MAP) Pulse Ox O2 Delivery O2 Flow Rate FiO2 08/31/20 20:23 91 Non-Rebreather 15.0 100 08/31/20 16:00 97.9 86 22 110/52 (71) 94 08/31/20 16:00 89 08/31/20 12:00 98.7 89 20 112/48 (69) 94 08/31/20 12:00 82 08/31/20 09:00 Venturi Mask 15.0 08/31/20 08:00 98.8 106 22 115/51 (72) 93 08/31/20 08:00 96 08/31/20 04:00 77 08/31/20 04:00 98.6 81 21 112/49 (70) 92 08/31/20 00:00 99.0 82 22 111/48 (69) 93 08/31/20 00:00 82 Laboratory Tests 08/31/20 06:33: POC Whole Blood Glucose 128H 08/31/20 11:29: POC Whole Blood Glucose 127H 08/31/20 11:40: White Blood Count 16.4H, Red Blood Count 5.11, Hemoglobin 13.6L, Hematocrit 41.8L, Mean Corpuscular Volume 82, Mean Corpuscular Hemoglobin 26.5L, Mean Co rpuscular Hemoglobin Concent 32.4, Red Cell Distribution Width 14.2, Platelet Count 168, Mean Platelet Volume 7.3, Neutrophils (%) (Auto) , Lymphocytes (%) (Auto) , Monocytes (%) (Auto) , Eosinophils (%) (Auto) , Basophils (%) (Auto) , Differential Total Cells Counted 100, Neutrophils % (Manual) 88H, Lymphocytes % (Manual) 5L, Monocytes % (Manual) 7, Eosinophils % (Manual) 0, Basophils % (Manual) 0, Band Neutrophils 0, Platelet Estimate Adequate, Platelet Morphology Normal, Red Blood Cell Morphology Normal, Sodium Level 145, Potassium Level 4.4, Chloride Level 111H, Carbon Dioxide Level 34H, Anion Gap 0L, Blood Urea Nitrogen 22H, Creatinine 1.2, Estimat Glomerular Filtration Rate 57.4, Glucose Level 131H , Calcium Level 8.3L, Total Bilirubin 0.8, Aspartate Amino Transf (AST/SGOT) 13L , Alanine Aminotransferase (ALT/SGPT) 11L, Alkaline Phosphatase 71, Total Protein 5.6L, Albumin 1.7L, Globulin 3.9, Albumin/Globulin Ratio 0.4L 08/31/20 16:19: POC Whole Blood Glucose 131H Height (Feet): 5 Height (Inches): 8.00 Weight (Pounds): 163 Assessment/Plan Problem List: (1) Renal failure (ARF), acute on chronic ICD Codes: N17.9 - Acute kidney failure, unspecified; N18.9 - Chronic kidney disease, unspecified SNOMED: 395295951 (2) Diabetes mellitus ICD Codes: E11.9 - Type 2 diabetes mellitus without complications SNOMED: 56744767 (3) Sepsis due to urinary tract infection ICD Codes: A41.9 - Sepsis, unspecified organism; N39.0 - Urinary tract infection, site not specified SNOMED: 810626492 (4) Episode of generalized weakness ICD Codes: R53.1 - Weakness SNOMED: 55585680 (5) Renal failure (ARF), acute on chronic ICD Codes: N17.9 - Acute kidney failure, unspecified; N18.9 - Chronic kidney disease, unspecified SNOMED: 352849331 (6) CVA, old, hemiparesis ICD Codes: I69.359 - Hemiplegia and hemiparesis following cerebral infarction affecting unspecified side SNOMED: 477190517 (7) Hypoxia ICD Codes: R09.02 - Hypoxemia SNOMED: 511937999 (8) 2019 novel coronavirus detected ICD Codes: U07.1 - COVID-19 SNOMED: 9422649392700294 (9) BPH (benign prostatic hyperplasia) ICD Codes: N40.0 - Benign prostatic hyperplasia without lower urinary tract symptoms SNOMED: 566878491 Status: progressing, unchanged Assessment/Plan: covid + supportive care cva azotemia Jose David Headley MD Aug 31, 2020 21:45
[2020-09-01] VITALS: BP 106/59
[2020-09-01 03:23] VITALS: BP 113/62
[2020-09-01] MEDS: Piperacillin/Tazobactam 3.375 GM in NS 110 ML IVPB SCH ×3 (05:56→22:07)
[2020-09-01] MEDS: NovoLOG Insulin Flexpen SUBQ SCH ×4 (06:30→21:40)
--- NOTE | 2020-09-01 07:14 | NUR ---
NURSE NOTES: Upon assessing Pt this morning, pt breathing appeared labored, 25 RR and complaining of not breathing right this morning. Pt was 87% on venturi mask 50% fiO2. increased O2 to 15 LPM and called RT. RT put Pt on NRB mask, Pt tolerating well, 95-97% on NRB.
--- NOTE | 2020-09-01 07:15 | NUR ---
NURSE NOTES: received report update from BRYAN Galaviz. Pt is siting up high fowlers eating breakfast. Pt is stable on 15L venturi fio2 50% unlabored even breathing, sp02 92% at this time. no s/s or complaint of distress at this time. Pt has R sided weakness noted. Sacral stage 1 noted, redness on R axillary covered with optifoam. Pt has condom catheter. Pt IV FA 22g running zoysn, asymptomatic and intact. IV on RFA 22g, SL asymptomatic and intact. Pt bed low and locked, call light in reach and bed alarm on. pt verbalized understanding to call for help.
--- NOTE | 2020-09-01 07:27 | NUR ---
NURSE HAND-OFF REPORT: Important Events on Shift: None Patient Status: stable, full code Diet: cardiac mech fine chopped Pending Orders: none Pending Results/Labs: AM labs Pending MD notification: none Latest Vital Signs: Temperature 98.7 , Pulse 99 , B/P 113 /62 , Respiratory Rate 21 , O2 SAT 93 , Nasal Cannula, O2 Flow Rate 15.0 . Vital Sign Comment: EKG Rhythm: SR w/ BBB Rhythm change?: N MD Notified?: Juancarlos Harris MD Response: No New Orders Received Latest Wong Fall Score: 55 Fall Risk: High Risk Safety Measures: Call light Within Reach, Bed Alarm Zone 1, Side Rails Side Rails x3, Bed position Low and Locked. Fall Precautions: YES Yellow Socks YES Yellow Gown YES Door Sign YES Patient Fall Education YES Report given to MADELINE Duong RN.
[2020-09-01 08:00] VITALS: BP 133/70
--- NOTE | 2020-09-01 08:00 | NUR ---
NURSE NOTES: Went in to assist Pt with eating, as requested. Pt refused, said "I only want the juices".
[2020-09-01] MEDS: Tamsulosin 0.4mg cap ORAL SCH ×2 (08:22→17:14)
[2020-09-01] MEDS: Eliquis 5mg tablet ORAL SCH ×2 (08:22→17:13)
[2020-09-01 12:00] VITALS: BP 135/55
--- NOTE | 2020-09-01 13:05 | NUR ---
NURSE NOTES: Pt requesting to speak to Dr Alarcon again regarding Thoracentesis consent. Md Alarcon notified. Addendum: 09/01/20 at 1337 by Chelly Rosario RN RN Dr Alarcon bedside speaking to Pt regarding thoracentesis scheduled for sunday 09/02. risks and benefits explained, Pt given opportunity to ask questions. Pt unable to sign for self physically but verbalized consent, witnessed by JANELL Da Silva and BRYAN garcia. Pt consent to thoracentesis.
--- NOTE | 2020-09-01 13:34 | Pulmonology Progress Note ---
Subjective ROS Limited/Unobtainable: Yes HEENT: Repors: no symptoms Respiratory: Reports: no symptoms Allergies: Coded Allergies: No Known Allergies (Unverified , 01/04/19) Objective Last 24 Hour Vital Signs Date Time Temp Pulse Resp B/P (MAP) Pulse Ox O2 Delivery O2 Flow Rate FiO2 09/01/20 12:00 82 09/01/20 12:00 96.6 84 18 135/55 (81) 88 09/01/20 09:00 Non-Rebreather 15.0 09/01/20 08:44 96 Non-Rebreather 15.0 100 09/01/20 08:00 111 09/01/20 08:00 98.1 92 20 133/70 (91) 88 09/01/20 04:00 99 09/01/20 03:23 98.7 73 21 113/62 (79) 93 09/01/20 00:00 87 09/01/20 00:00 97.4 89 24 106/59 (75) 91 08/31/20 21:00 Venturi Mask 15.0 08/31/20 20:23 91 Non-Rebreather 15.0 100 08/31/20 20:00 98.0 91 23 112/50 (70) 91 08/31/20 20:00 92 08/31/20 16:00 97.9 86 22 110/52 (71) 94 08/31/20 16:00 89 General Appearance: WD/WN HEENT: normocephalic, atraumatic, other - O2 Respiratory: chest wall non-tender, rhonchi - bilaterally - scattered Cardiovascular: normal peripheral pulses, normal rate, regular rhythm Abdomen: normal bowel sounds, soft, non tender Genitourinary: normal external genitalia Extremities: no clubbing Neurologic: alert, responsive, other - R side paresis Lymphatic: no neck adenopathy Musculoskeletal: atrophy - BLE Laboratory Tests 08/31/20 16:19: POC Whole Blood Glucose 131H 08/31/20 22:16: POC Whole Blood Glucose 138H 09/01/20 06:29: POC Whole Blood Glucose 128H 09/01/20 11:12: POC Whole Blood Glucose 149H Current Medications Medications (Trade) Dose Ordered Sig/Amaya Route PRN Reason Start Time Stop Time Status Last Admin Dose Admin Acetaminophen (Tylenol) 650 mg Q4H PRN ORAL Temp >100.5 08/17/20 19:45 09/16/20 19:44 Albuterol/ Ipratropium (Combivent Respimat) 1 puff Q4H PRN INH Shortness of Breath 08/18/20 13:00 09/17/20 12:59 Apixaban (Eliquis) 5 mg BID ORAL 08/18/20 18:00 11/16/20 17:59 09/01/20 08:22 Dextrose (Dextrose 50%) 25 ml Q30M PRN IV Hypoglycemia 08/18/20 11:45 11/16/20 11:44 Dextrose (Dextrose 50%) 50 ml Q30M PRN IV Hypoglycemia 08/18/20 11:45 11/16/20 11:44 Insulin Aspart (NovoLOG) BEFORE MEALS AND HS SUBQ 08/18/20 16:30 11/16/20 16:29 08/30/20 16:32 Ondansetron HCl (Zofran) 4 mg Q6H PRN IVP Nausea & Vomiting 08/17/20 19:45 09/16/20 19:44 Pantoprazole (Protonix) 40 mg DAILY ORAL 08/18/20 09:00 09/17/20 08:59 09/01/20 08:22 Piperacillin Sod/ Tazobactam Sod 3.375 gm/Sodium Chloride 110 ml @ 27.5 mls/hr EVERY 8 HOURS IVPB 08/28/20 13:00 09/02/20 12:59 09/01/20 05:56 Polyethylene Glycol (Miralax) 17 gm DAILYPRN PRN ORAL Constipation 08/17/20 19:45 09/16/20 19:44 08/19/20 17:56 Potassium Chloride (K-Dur) 20 meq DAILY ORAL 08/29/20 12:45 11/27/20 12:44 09/01/20 08:22 Promethazine HCl/ Codeine (Phenergan with Codeine) 5 ml Q6H PRN ORAL cough 08/17/20 19:45 09/16/20 19:44 08/30/20 03:33 Tamsulosin HCl (Flomax) 0.4 mg BID ORAL 08/18/20 09:00 09/17/20 08:59 09/01/20 08:22 Assessment/Plan Problems: (1) Nosocomial pneumonia (2) Hypoxia (3) 2019 novel coronavirus detected (4) CVA, old, hemiparesis (5) Hypertension (6) Diabetes mellitus (7) BPH (benign prostatic hyperplasia) Assessment/Plan pt agreed with thoracentesis afebrile wbc still high no new complains cxr from 08/22: New or markedly worsened bilateral infiltrates, since prior exam of 5 days earlier respiratory isolation off steroids and Remdesevir titrate fio2 to sat of 92% check inflammatory markers sliding scale diabetic diet 08/26 Suspect slight worsening of right lung infiltrates. 08/28 cxr: Worsening bilateral infiltrates, versus edema, bilaterally 08/29: Right pleural effusion and infiltrates, unchanged Angelita Alarcon MD Sep 01, 2020 13:34
--- NOTE | 2020-09-01 14:37 | Nephrology Progress Note ---
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 Hypertension Diabetes, hypoalbuminemia BPH Plan September 01: No labs drawn today. Remains on nonrebreather mask. Will order lab tomorrow. Continue to monitor renal parameters and electrolytes. Continue per consultants. August 31: Labs reviewed. Remains on Venturi mask. Full code. Continue to monitor renal parameters. August 30: No CHEM panel drawn today. Remains full code. On nonrebreather mask. Continue to monitor renal parameters. August 29: Labs reviewed. Abnormal electrolyte addressed. Continue per consultants. August 28: Labs reviewed. Magnesium and phosphorus replacement ordered. Continue per consultants. August 27: No labs drawn today. Continue per consultants. Will check lab in a.m. August 26: White blood cells 14.9. Renal parameters stable. Continue per consultants. August 25: Labs are [place]s [place] [id number]. Renal parameters stable. August 24: Status quo. No labs drawn today. Will check lab tomorrow. August 23: Status quo. Labs reviewed. Renal parameters are stable. Continue per consultants. August 22: Status quo. Stable renal parameters. Continue per consultants. August 21: Labs were reviewed. Renal parameters are stable. Continue per consultants. August 20: Labs reviewed. Creatinine now normalized. Electrolytes within normal limit. Continue per consultants. Antibiotics Slow hydrate with normal saline Monitor renal parameters Keep the blood pressure blood sugar in check Per orders Subjective ROS Limited/Unobtainable: Yes Objective Objective Last 24 Hour Vital Signs Date Time Temp Pulse Resp B/P (MAP) Pulse Ox O2 Delivery O2 Flow Rate FiO2 09/01/20 12:00 82 09/01/20 12:00 96.6 84 18 135/55 (81) 88 09/01/20 09:00 Non-Rebreather 15.0 09/01/20 08:44 96 Non-Rebreather 15.0 100 09/01/20 08:00 111 09/01/20 08:00 98.1 92 20 133/70 (91) 88 09/01/20 04:00 99 09/01/20 03:23 98.7 73 21 113/62 (79) 93 09/01/20 00:00 87 09/01/20 00:00 97.4 89 24 106/59 (75) 91 08/31/20 21:00 Venturi Mask 15.0 08/31/20 20:23 91 Non-Rebreather 15.0 100 08/31/20 20:00 98.0 91 23 112/50 (70) 91 08/31/20 20:00 92 08/31/20 16:00 97.9 86 22 110/52 (71) 94 08/31/20 16:00 89 Laboratory Tests 08/31/20 16:19: POC Whole Blood Glucose 131H 08/31/20 22:16: POC Whole Blood Glucose 138H 09/01/20 06:29: POC Whole Blood Glucose 128H 09/01/20 11:12: POC Whole Blood Glucose 149H Height (Feet): 5 Height (Inches): 8.00 Weight (Pounds): 163 General Appearance: no apparent distress EENT: other - On nonrebreather mask Cardiovascular: normal rate Respiratory/Chest: decreased breath sounds Abdomen: distended Objective No change Devonte Zuniga MD Sep 01, 2020 14:37
[2020-09-01 16:00] VITALS: BP 116/49
--- NOTE | 2020-09-01 18:00 | NUR ---
NURSE NOTES: Contacted Dr Goncalves to stop Eliquis prior to thoracentesis. Order acknowledged and carried out. 1800 Eliquis held.
--- NOTE | 2020-09-01 18:16 | NUR ---
NURSE HAND-OFF REPORT: Important Events on Shift: Thoracentesis consent signed// eliquis was not held this morning only held at 1800, awaiting MD order to stop// Patient Status: FC, stable Diet: regular, mech soft chop Pending Orders: stop eliquis Pending Results/Labs: Pending MD notification: eliquis was not held 2d prior to thoracentesis // Pt hesistant abt thoracentesis Latest Vital Signs: Temperature 96.7 , Pulse 64 , B/P 116 /49 , Respiratory Rate 20 , O2 SAT 97 , Nasal Cannula, O2 Flow Rate 15.0 . Vital Sign Comment: EKG Rhythm: SR w/ BBB Rhythm change?: N MD Notified?: America Harris MD Response: No New Orders Received Latest Wong Fall Score: 55 Fall Risk: High Risk Safety Measures: Call light Within Reach, Bed Alarm Zone 1, Side Rails Side Rails x3, Bed position Low and Locked. Fall Precautions: Yellow Socks Yellow Gown Door Sign Patient Fall Education Report to be given. Addendum: 09/01/20 at 1907 by Chelly Rosario RN RN Report given to BRYAN Dupont. pt is stable.
--- NOTE | 2020-09-01 19:05 | NUR ---
NURSE NOTES: Patient received from BRYAN Spaulding. Patient is awake, alert and oriented x 4. Patient is asking for more blankets, will tend to his needs. Patient is on 15 L non-rebreather mask with no signs of acute respiratory distress noted. Patient is noted to have a condom catheter, patent and well draining. Patient has an optifoam on his right arm. Patient has a 22 gauge IV on his left forearm and a 22 gauge on his right forearm both saline locked. Bed is in the lowest position and locked, call light within reach. Will continue to monitor.
[2020-09-01 20:00] VITALS: BP 101/57
[2020-09-01 21:32] LABS: INR 1.2 (0.9-1.1)
--- NOTE | 2020-09-01 22:01 | General Progress Note ---
Subjective ROS Limited/Unobtainable: Yes Allergies: Coded Allergies: No Known Allergies (Unverified , 01/04/19) Objective Last 24 Hour Vital Signs Date Time Temp Pulse Resp B/P (MAP) Pulse Ox O2 Delivery O2 Flow Rate FiO2 09/01/20 16:00 64 09/01/20 16:00 96.7 61 20 116/49 (71) 97 09/01/20 12:00 82 09/01/20 12:00 96.6 84 18 135/55 (81) 97 09/01/20 09:00 Non-Rebreather 15.0 09/01/20 08:44 96 Non-Rebreather 15.0 100 09/01/20 08:00 111 09/01/20 08:00 98.1 92 20 133/70 (91) 88 09/01/20 04:00 99 09/01/20 03:23 98.7 73 21 113/62 (79) 93 09/01/20 00:00 87 09/01/20 00:00 97.4 89 24 106/59 (75) 91 Laboratory Tests 08/31/20 22:16: POC Whole Blood Glucose 138H 09/01/20 06:29: POC Whole Blood Glucose 128H 09/01/20 11:12: POC Whole Blood Glucose 149H 09/01/20 16:03: POC Whole Blood Glucose 132H 09/01/20 20:45: Prothrombin Time 12.8H, Prothromb Time International Ratio 1.2H 09/01/20 21:35: POC Whole Blood Glucose 187H Height (Feet): 5 Height (Inches): 8.00 Weight (Pounds): 163 Assessment/Plan Problem List: (1) Renal failure (ARF), acute on chronic ICD Codes: N17.9 - Acute kidney failure, unspecified; N18.9 - Chronic kidney disease, unspecified SNOMED: 659802955 (2) Diabetes mellitus ICD Codes: E11.9 - Type 2 diabetes mellitus without complications SNOMED: 63500437 (3) Sepsis due to urinary tract infection ICD Codes: A41.9 - Sepsis, unspecified organism; N39.0 - Urinary tract infection, site not specified SNOMED: 020030435 (4) Episode of generalized weakness ICD Codes: R53.1 - Weakness SNOMED: 36420730 (5) Renal failure (ARF), acute on chronic ICD Codes: N17.9 - Acute kidney failure, unspecified; N18.9 - Chronic kidney disease, unspecified SNOMED: 951119098 (6) CVA, old, hemiparesis ICD Codes: I69.359 - Hemiplegia and hemiparesis following cerebral infarction affecting unspecified side SNOMED: 257217848 (7) Hypoxia ICD Codes: R09.02 - Hypoxemia SNOMED: 857342848 (8) 2019 novel coronavirus detected ICD Codes: U07.1 - COVID-19 SNOMED: 5909247978272490 (9) BPH (benign prostatic hyperplasia) ICD Codes: N40.0 - Benign prostatic hyperplasia without lower urinary tract symptoms SNOMED: 956921555 Status: progressing, unchanged Assessment/Plan: covid positive renal failure check Jose David Koo MD Sep 01, 2020 22:01
[2020-09-02] VITALS (7 sets, daily range): BP systolic 102–149; BP diastolic 61–71
[2020-09-02] MEDS: Piperacillin/Tazobactam 3.375 GM in NS 110 ML IVPB SCH ×3 (05:42→22:12)
[2020-09-02] MEDS: NovoLOG Insulin Flexpen SUBQ SCH ×4 (05:59→21:00)
--- NOTE | 2020-09-02 07:30 | NUR ---
NURSE NOTES: Received pt from RN Cresencio, pt is awake and alert, pt has non rebreathe mask 15lit, pt has intact iv access LFA and RFA 22G SL. Pt is on continues heart monitoring. per fiber technologist Ami pt can eat breakfast before Thoracentesis, pt is eating breakfast by observation, all needs attended, bed is locked and is in the lowest position, call light within easy reach. will continue to monitor.
--- NOTE | 2020-09-02 07:42 | NUR ---
NURSE HAND-OFF REPORT: Important Events on Shift:[Patient has thoracentesis procedure scheduled, consent signed. Endorsed to morning nurse. ] Patient Status: [Stable] Diet: [Cardiac diet, NPO prior to procedure] Pending Orders: [] Pending Results/Labs:[] Pending MD notification:[] Latest Vital Signs: Temperature 98.4 , Pulse 76 , B/P 109 /62 , Respiratory Rate 22 , O2 SAT 95 , Nasal Cannula, O2 Flow Rate 15.0 . Vital Sign Comment: [] EKG Rhythm: SB w/ BBB Rhythm change?: Y Notified?: America Harris MD Response: No New Orders Received Latest Wong Fall Score: 55 Fall Risk: High Risk Safety Measures: Call light Within Reach, Bed Alarm Zone 1, Side Rails Side Rails x3, Bed position Low and Locked. Fall Precautions: Yellow Socks Yellow Gown Door Sign Patient Fall Education Report given to [BRYAN Che].
[2020-09-02 07:49] LABS: HEMATOCRIT 42.2 % (42.0-52.0); HEMOGLOBIN 13.5 G/DL (14.2-18.0); MEAN CORPUSCULAR VOLUME 84 FL (80-99); PLATELET COUNT 126 K/UL (150-450); RED BLOOD COUNT 5.01 M/UL (4.70-6.10); RED CELL DISTRIBUTION WIDTH 14.7 % (11.6-14.8)
--- NOTE | 2020-09-02 07:54 | NUR ---
CASE MANAGEMENT:REVIEW 09/02/20 SI: COVID INFECTION. HYPOXIA 98.4 76 22 109/62 95% ON 15L NRB IS: IV ZOSYN Q8HRS K-DUR PO QD ELIQUIS PO BID FLOMAX PO BID PROTONIX PO QD : TELEMETRY STATUS DCP: FROM [facility] PLAN: TITRATE OXYGEN
--- NOTE | 2020-09-02 08:01 | Infectious Diseases Prog Note ---
Assessment/Plan 84yo M with: Afebrile Normal WBC Lymphopenia COVID pneumonia, severe Acute hypoxic resp failure 2/2 COVID pna UTI/cystitis 08/17 BCx NTD UCx +ESBL E.coli CXR: No significant change in tortuosity/ectasia of the thoracic aorta. Negative for cardiac enlargement. Negative for focal consolidation, pneumothorax or pleural fluid collections. COVID rapid test positive, PCR positive 08/22 CXR: New or markedly worsened bilateral infiltrates, since prior exam of 5 days earlier 08/28 CXR: Worsening bilateral infiltrates, versus edema, bilaterally 08/29 CXR: Right pleural effusion and infiltrates, unchanged. Improving left basilar atelectasis and infiltrate Cr 1.8, improving 08/19 Renal US: Negative for hydronephrosis. 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 Bilateral renal cysts, large on the right. Plan: Cont Zosyn #6/7 given worsening resp status Resp cx if able CXR Recommend diuresis, BNP >7000k Trend WBC 08/27 SP dex #10 08/24 SP RDV #5, ertapenem #5 for UTI 08/23 SP Azithro #5 Convalescent plasma unfortunately not available at this institution so unable to give, additionally unclear if it improves mortality/outcomes or not Monitor CBC/CMP Monitor temp curve, hemodynamics Monitor resp status D/w RN Thank you for this consult. [facility] will continue to follow. Subjective Allergies: Coded Allergies: No Known Allergies (Unverified , 01/04/19) AF NAD on 15L NRB WBC 13, improving Feels his breathing is the same Minimal cough, minimal sputum production Objective Last 24 Hour Vital Signs Date Time Temp Pulse Resp B/P (MAP) Pulse Ox O2 Delivery O2 Flow Rate FiO2 09/02/20 04:00 98.4 76 22 109/62 (78) 95 09/02/20 04:00 59 09/02/20 00:00 67 09/02/20 00:00 98.6 76 20 102/61 (75) 96 09/01/20 21:00 97 Non-Rebreather 15.0 100 09/01/20 21:00 Non-Rebreather 15.0 09/01/20 20:00 73 09/01/20 20:00 98.1 78 20 101/57 (72) 97 12/27/20 16:00 64 09/01/20 16:00 96.7 61 20 116/49 (71) 97 09/01/20 12:00 82 09/01/20 12:00 96.6 84 18 135/55 (81) 97 09/01/20 09:00 Non-Rebreather 15.0 09/01/20 08:44 96 Non-Rebreather 15.0 100 Height (Feet): 5 Height (Inches): 8.00 Weight (Pounds): 163 Gen: NAD HEENT: NCAT Pulm: BL chest rise Abd: Non-distended Ext: No c/c/e Skin: No visible rashes Neuro: Awake, interactive Laboratory Tests Test 09/01/20 11:12 09/01/20 16:03 09/01/20 20:45 09/01/20 21:35 POC Whole Blood Glucose 149 MG/DL (74-106) H 132 MG/DL (74-106) H 187 MG/DL (74-106) H Prothrombin Time 12.8 SEC (9.30-11.50) H Prothromb Time International Ratio 1.2 (0.9-1.1) H Test 09/02/20 05:50 09/02/20 05:56 White Blood Count 13.0 K/UL (4.8-10.8) H Red Blood Count 5.01 M/UL (4.70-6.10) Hemoglobin 13.5 G/DL (14.2-18.0) L Hematocrit 42.2 % (42.0-52.0) Mean Corpuscular Volume 84 FL (80-99) Mean Corpuscular Hemoglobin 26.9 PG (27.0-31.0) L Mean Corpuscular Hemoglobin Concent 31.9 G/DL (32.0-36.0) L Red Cell Distribution Width 14.7 % (11.6-14.8) Platelet Count 126 K/UL (150-450) L Mean Platelet Volume 8.5 FL (6.5-10.1) Neutrophils (%) (Auto) % (45.0-75.0) Lymphocytes (%) (Auto) % (20.0-45.0) Monocytes (%) (Auto) % (1.0-10.0) Eosinophils (%) (Auto) % (0.0-3.0) Basophils (%) (Auto) % (0.0-2.0) Neutrophils % (Manual) Pending Lymphocytes % (Manual) Pending Platelet Estimate Pending Platelet Morphology Pending Sodium Level Pending Potassium Level Pending Chloride Level Pending Carbon Dioxide Level Pending Blood Urea Nitrogen Pending Creatinine Pending Estimat Glomerular Filtration Rate Pending Glucose Level Pending Calcium Level Pending Phosphorus Level Pending Magnesium Level Pending Total Bilirubin Pending Aspartate Amino Transf (AST/SGOT) Pending Alanine Aminotransferase (ALT/SGPT) Pending Alkaline Phosphatase Pending C-Reactive Protein, Quantitative Pending Pro-B-Type Natriuretic Peptide Pending Total Protein Pending Albumin Pending Globulin Pending POC Whole Blood Glucose 112 MG/DL (74-106) H Current Medications Medications (Trade) Dose Ordered Sig/Amaya Route PRN Reason Start Time Stop Time Status Last Admin Dose Admin Acetaminophen (Tylenol) 650 mg Q4H PRN ORAL Temp >100.5 08/17/20 19:45 09/16/20 19:44 Albuterol/ Ipratropium (Combivent Respimat) 1 puff Q4H PRN INH Shortness of Breath 08/18/20 13:00 09/17/20 12:59 Apixaban (Eliquis) 5 mg BID ORAL 08/18/20 18:00 11/16/20 17:59 09/01/20 08:22 Dextrose (Dextrose 50%) 25 ml Q30M PRN IV Hypoglycemia 08/18/20 11:45 11/16/20 11:44 Dextrose (Dextrose 50%) 50 ml Q30M PRN IV Hypoglycemia 08/18/20 11:45 11/16/20 11:44 Insulin Aspart (NovoLOG) BEFORE MEALS AND HS SUBQ 08/18/20 16:30 11/16/20 16:29 09/01/20 21:40 Ondansetron HCl (Zofran) 4 mg Q6H PRN IVP Nausea & Vomiting 08/17/20 19:45 09/16/20 19:44 Pantoprazole (Protonix) 40 mg DAILY ORAL 08/18/20 09:00 09/17/20 08:59 09/01/20 08:22 Piperacillin Sod/ Tazobactam Sod 3.375 gm/Sodium Chloride 110 ml @ 27.5 mls/hr EVERY 8 HOURS IVPB 08/28/20 13:00 09/02/20 12:59 09/02/20 05:42 Polyethylene Glycol (Miralax) 17 gm DAILYPRN PRN ORAL Constipation 08/17/20 19:45 09/16/20 19:44 08/19/20 17:56 Potassium Chloride (K-Dur) 20 meq DAILY ORAL 08/29/20 12:45 11/27/20 12:44 09/01/20 08:22 Promethazine HCl/ Codeine (Phenergan with Codeine) 5 ml Q6H PRN ORAL cough 08/17/20 19:45 09/16/20 19:44 08/30/20 03:33 Tamsulosin HCl (Flomax) 0.4 mg BID ORAL 08/18/20 09:00 09/17/20 08:59 09/01/20 17:14 Aneta Nguyen M.D. Sep 02, 2020 08:01
[2020-09-02] MEDS: Eliquis 5mg tablet ORAL SCH ×2 (09:00→17:23)
[2020-09-02] MEDS: Tamsulosin 0.4mg cap ORAL SCH ×2 (09:05→17:23)
[2020-09-02 09:25] LABS: ALANINE AMINOTRANSFERASE 15 U/L (12-78); ALBUMIN 1.7 G/DL (3.4-5.0); ALBUMIN/GLOBULIN RATIO 0.4 (1.0-2.7); ALKALINE PHOSPHATASE 66 U/L (46-116); ANION GAP 5 mmol/L (5-15); ASPARTATE AMINO TRANSFERASE 19 U/L (15-37); BILIRUBIN,TOTAL 0.8 MG/DL (0.2-1.0); BLOOD UREA NITROGEN 22 mg/dL (7-18); CALCIUM 8.7 MG/DL (8.5-10.1); CARBON DIOXIDE 29 MMOL/L (21-32); CHLORIDE 110 MMOL/L (98-107); PHOSPHORUS 2.2 MG/DL (2.5-4.9); POTASSIUM 4.6 MMOL/L (3.5-5.1); SODIUM 143 MMOL/L (136-145)
--- NOTE | 2020-09-02 11:10 | Pulmonology Progress Note ---
Subjective ROS Limited/Unobtainable: Yes HEENT: Repors: no symptoms Respiratory: Reports: no symptoms Allergies: Coded Allergies: No Known Allergies (Unverified , 01/04/19) Objective Last 24 Hour Vital Signs Date Time Temp Pulse Resp B/P (MAP) Pulse Ox O2 Delivery O2 Flow Rate FiO2 09/02/20 08:00 97.7 90 22 132/64 (86) 95 09/02/20 07:52 82 09/02/20 04:00 98.4 76 22 109/62 (78) 95 09/02/20 04:00 59 09/02/20 00:00 67 09/02/20 00:00 98.6 76 20 102/61 (75) 96 09/01/20 21:00 97 Non-Rebreather 15.0 100 09/01/20 21:00 Non-Rebreather 15.0 09/01/20 20:00 73 09/01/20 20:00 98.1 78 20 101/57 (72) 97 09/01/20 16:00 64 09/01/20 16:00 96.7 61 20 116/49 (71) 97 09/01/20 12:00 82 09/01/20 12:00 96.6 84 18 135/55 (81) 97 General Appearance: WD/WN HEENT: normocephalic, atraumatic, other - O2 Respiratory: chest wall non-tender, rhonchi - bilaterally - scattered Cardiovascular: normal peripheral pulses, normal rate, regular rhythm Abdomen: normal bowel sounds, soft, non tender Genitourinary: normal external genitalia Extremities: no clubbing Neurologic: alert, responsive, other - R side paresis Lymphatic: no neck adenopathy Musculoskeletal: atrophy - BLE Laboratory Tests 09/01/20 11:12: POC Whole Blood Glucose 149H 09/01/20 16:03: POC Whole Blood Glucose 132H 09/01/20 20:45: Prothrombin Time 12.8H, Prothromb Time International Ratio 1.2H 09/01/20 21:35: POC Whole Blood Glucose 187H 09/02/20 05:50: White Blood Count 13.0H, Red Blood Count 5.01, Hemoglobin 13.5L, Hematocrit 42.2, Mean Corpuscular Volume 84, Mean Corpuscular Hemoglobin 26.9L, Mean Corpuscular Hemoglobin Concent 31.9L, Red Cell Distribution Width 14.7, Platelet Count 126L, Mean Platelet Volume 8.5, Neutrophils (%) (Auto) , Lymphocytes (%) (Auto) , Monocytes (%) (Auto) , Eosinophils (%) (Auto) , Basophils (%) (Auto) , Neutrophils % (Manual) [Pending], Lymphocytes % (Manual) [Pending], Platelet Estimate [Pending], Platelet Morphology [Pending], Sodium Level 143, Potassium Level 4.6, Chloride Level 110H, Carbon Dioxide Level 29, Anion Gap 5, Blood Urea Nitrogen 22H, Creatinine 1.0, Estimat Glomerular Filtration Rate > 60, Glucose Level 117H, Calcium Level 8.7, Phosphorus Level 2.2L, Magnesium Level 2.1, Total Bilirubin 0.8, Aspartate Amino Transf (AST/SGOT) 19, Alanine Aminotransferase (ALT/SGPT) 15, Alkaline Phosphatase 66, C-Reactive Protein, Quantitative 16.3H, Pro-B-Type Natriuretic Peptide 1682H, Total Protein 5.9L, Albumin 1.7L, Globulin 4.2, Albumin/Globulin Ratio 0.4L 09/02/20 05:56: POC Whole Blood Glucose 112H Current Medications Medications (Trade) Dose Ordered Sig/Amaya Route PRN Reason Start Time Stop Time Status Last Admin Dose Admin Acetaminophen (Tylenol) 650 mg Q4H PRN ORAL Temp >100.5 08/17/20 19:45 09/16/20 19:44 Albuterol/ Ipratropium (Combivent Respimat) 1 puff Q4H PRN INH Shortness of Breath 08/18/20 13:00 09/17/20 12:59 Apixaban (Eliquis) 5 mg BID ORAL 08/18/20 18:00 11/16/20 17:59 09/01/20 08:22 Dextrose (Dextrose 50%) 25 ml Q30M PRN IV Hypoglycemia 08/18/20 11:45 11/16/20 11:44 Dextrose (Dextrose 50%) 50 ml Q30M PRN IV Hypoglycemia 08/18/20 11:45 11/16/20 11:44 Insulin Aspart (NovoLOG) BEFORE MEALS AND HS SUBQ 08/18/20 16:30 11/16/20 16:29 09/01/20 21:40 Ondansetron HCl (Zofran) 4 mg Q6H PRN IVP Nausea & Vomiting 08/17/20 19:45 09/16/20 19:44 Pantoprazole (Protonix) 40 mg DAILY ORAL 08/18/20 09:00 09/17/20 08:59 09/02/20 09:05 Piperacillin Sod/ Tazobactam Sod 3.375 gm/Sodium Chloride 110 ml @ 27.5 mls/hr EVERY 8 HOURS IVPB 08/28/20 13:00 09/03/20 23:59 09/02/20 05:42 Polyethylene Glycol (Miralax) 17 gm DAILYPRN PRN ORAL Constipation 08/17/20 19:45 09/16/20 19:44 08/19/20 17:56 Potassium Phosphate 20 mm/ Sodium Chloride 281.6667 ml @ 46.944 m... ONCE ONCE IV 09/02/20 12:00 09/02/20 17:59 Potassium Chloride (K-Dur) 20 meq DAILY ORAL 08/29/20 12:45 11/27/20 12:44 09/02/20 09:05 Promethazine HCl/ Codeine (Phenergan with Codeine) 5 ml Q6H PRN ORAL cough 08/17/20 19:45 09/16/20 19:44 08/30/20 03:33 Tamsulosin HCl (Flomax) 0.4 mg BID ORAL 08/18/20 09:00 09/17/20 08:59 09/02/20 09:05 Assessment/Plan Problems: (1) Nosocomial pneumonia (2) Hypoxia (3) 2019 novel coronavirus detected (4) CVA, old, hemiparesis (5) Hypertension (6) Diabetes mellitus (7) BPH (benign prostatic hyperplasia) Assessment/Plan wbc still high, afebrile pt agreed with thoracentesis afebrile no new complains cxr from 08/22: New or markedly worsened bilateral infiltrates, since prior exam of 5 days earlier respiratory isolation off steroids and Remdesevir titrate fio2 to sat of 92% check inflammatory markers sliding scale diabetic diet 08/26 Suspect slight worsening of right lung infiltrates. 08/28 cxr: Worsening bilateral infiltrates, versus edema, bilaterally 08/29: Right pleural effusion and infiltrates, unchanged Angelita Alarcon MD Sep 02, 2020 11:10
--- NOTE | 2020-09-02 11:42 | Nephrology Progress Note ---
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 Hypertension Diabetes, hypoalbuminemia BPH Plan September 02: Labs reviewed. On nonrebreather mask. Low phosphorus noted and addressed. September 01: No labs drawn today. Remains on nonrebreather mask. Will order lab tomorrow. Continue to monitor renal parameters and electrolytes. Continue per consultants. August 31: Labs reviewed. Remains on Venturi mask. Full code. Continue to monitor renal parameters. August 30: No CHEM panel drawn today. Remains full code. On nonrebreather mask. Continue to monitor renal parameters. August 29: Labs reviewed. Abnormal electrolyte addressed. Continue per consultants. August 28: Labs reviewed. Magnesium and phosphorus replacement ordered. Continue per consultants. August 27: No labs drawn today. Continue per consultants. Will check lab in a.m. August 26: White blood cells 14.9. Renal parameters stable. Continue per consultants. August 25: Labs are [place] [address]. Renal parameters stable. August 24: Status quo. No labs drawn today. Will check lab tomorrow. August 23: Status quo. Labs reviewed. Renal parameters are stable. Continue per consultants. August 22: Status quo. Stable renal parameters. Continue per consultants. August 21: Labs were reviewed. Renal parameters are stable. Continue per consultants. August 20: Labs reviewed. Creatinine now normalized. Electrolytes within normal limit. Continue per consultants. Antibiotics Slow hydrate with normal saline Monitor renal parameters Keep the blood pressure blood sugar in check Per orders Subjective ROS Limited/Unobtainable: No Constitutional: Reports: malaise Objective Objective Last 24 Hour Vital Signs Date Time Temp Pulse Resp B/P (MAP) Pulse Ox O2 Delivery O2 Flow Rate FiO2 09/02/20 09:00 Non-Rebreather 15.0 09/02/20 08:00 97.7 90 22 132/64 (86) 95 09/02/20 07:52 82 09/02/20 04:00 98.4 76 22 109/62 (78) 95 09/02/20 04:00 59 09/02/20 00:00 67 09/02/20 00:00 98.6 76 20 102/61 (75) 96 09/01/20 21:00 97 Non-Rebreather 15.0 100 09/01/20 21:00 Non-Rebreather 15.0 09/01/20 20:00 73 09/01/20 20:00 98.1 78 20 101/57 (72) 97 09/01/20 16:00 64 09/01/20 16:00 96.7 61 20 116/49 (71) 97 09/01/20 12:00 82 09/01/20 12:00 96.6 84 18 135/55 (81) 97 Laboratory Tests 09/01/20 16:03: POC Whole Blood Glucose 132H 09/01/20 20:45: Prothrombin Time 12.8H, Prothromb Time International Ratio 1.2H 09/01/20 21:35: POC Whole Blood Glucose 187H 09/02/20 05:50: White Blood Count 13.0H, Red Blood Count 5.01, Hemoglobin 13.5L, Hematocrit 42.2, Mean Corpuscular Volume 84, Mean Corpuscular Hemoglobin 26.9L, Mean Corpus cular Hemoglobin Concent 31.9L, Red Cell Distribution Width 14.7, Platelet Count 126L, Mean Platelet Volume 8.5, Neutrophils (%) (Auto) , Lymphocytes (%) (Auto) , Monocytes (%) (Auto) , Eosinophils (%) (Auto) , Basophils (%) (Auto) , Differential Total Cells Counted 100, Neutrophils % (Manual) 85H, Lymphocytes % (Manual) 8L, Monocytes % (Manual) 6, Eosinophils % (Manual) 1, Basophils % (Manual) 0, Band Neutrophils 0, Platelet Estimate DecreasedL, Platelet Morphology Normal, Red Blood Cell Morphology Normal, Sodium Level 143, Potassium Level 4.6, Chloride Level 110H, Carbon Dioxide Level 29, Anion Gap 5, Blood Urea Nitrogen 22H, Creatinine 1.0, Estimat Glomerular Filtration Rate > 60, Glucose Level 117H, Calcium Level 8.7, Phosphorus Level 2.2L, Magnesium Level 2.1, Total Bilirubin 0.8, Aspartate Amino Transf (AST/SGOT) 19, Alanine Aminotransferase (ALT/SGPT) 15, Alkaline Phosphatase 66, C-Reactive Protein, Quantitative 16.3H, Pro-B-Type Natriuretic Peptide 1682H, Total Protein 5.9L, Albumin 1.7L, Globulin 4.2, Albumin/Globulin Ratio 0.4L 09/02/20 05:56: POC Whole Blood Glucose 112H 09/02/20 11:13: POC Whole Blood Glucose 148H Height (Feet): 5 Height (Inches): 8.00 Weight (Pounds): 163 General Appearance: no apparent distress Cardiovascular: tachycardia Respiratory/Chest: decreased breath sounds Abdomen: distended Objective No change Devonte Zuniga MD Sep 02, 2020 11:42
[2020-09-02] MEDS ORDERED: Potassium Phosphate 20 MM in NS 275 ML IV ONE (12:00)
--- NOTE | 2020-09-02 12:25 | NUR ---
RADIOLOGY DEPT., CHEST X-RAY DONE.-P.DYE
--- NOTE | 2020-09-02 13:05 | Cardiac Electrophysiology PN ---
Assessment/Plan Assessment/Plan 1. COVID-19 pneumonia. S/P Remdesevir and dexamethasone On apixaban 5 bid, iv Abx and 15 liter NRB FM 2. Hypertension. Stable off antihypertensive agents. 3. Diabetes. 4. History of CVA with hemiparesis. 5. Benign prostatic hypertrophy. 6. Neno with HR high 40s, likely due to Covid. Asymptomatic 7. Right pleural effusion. Thoracentesis pending today BILL RN Subjective Subjective On 15 liter NRBFM in Covid isolation. In SR. On Zosyn Thoracentesis is pending today Objective Last 24 Hour Vital Signs Date Time Temp Pulse Resp B/P (MAP) Pulse Ox O2 Delivery O2 Flow Rate FiO2 09/02/20 12:00 97.9 86 22 146/71 (96) 97 09/02/20 11:43 67 09/02/20 09:00 Non-Rebreather 15.0 09/02/20 08:00 97.7 90 22 132/64 (86) 95 09/02/20 07:52 82 09/02/20 04:00 98.4 76 22 109/62 (78) 95 09/02/20 04:00 59 09/02/20 00:00 67 09/02/20 00:00 98.6 76 20 102/61 (75) 96 09/01/20 21:00 97 Non-Rebreather 15.0 100 09/01/20 21:00 Non-Rebreather 15.0 09/01/20 20:00 73 09/01/20 20:00 98.1 78 20 101/57 (72) 97 09/01/20 16:00 64 09/01/20 16:00 96.7 61 20 116/49 (71) 97 Laboratory Tests Test 09/01/20 16:03 09/01/20 20:45 09/01/20 21:35 09/02/20 05:50 POC Whole Blood Glucose 132 MG/DL (74-106) H 187 MG/DL (74-106) H Prothrombin Time 12.8 SEC (9.30-11.50) H Prothromb Time International Ratio 1.2 (0.9-1.1) H White Blood Count 13.0 K/UL (4.8-10.8) H Red Blood Count 5.01 M/UL (4.70-6.10) Hemoglobin 13.5 G/DL (14.2-18.0) L Hematocrit 42.2 % (42.0-52.0) Mean Corpuscular Volume 84 FL (80-99) Mean Corpuscular Hemoglobin 26.9 PG (27.0-31.0) L Mean Corpuscular Hemoglobin Concent 31.9 G/DL (32.0-36.0) L Red Cell Distribution Width 14.7 % (11.6-14.8) Platelet Count 126 K/UL (150-450) L Mean Platelet Volume 8.5 FL (6.5-10.1) Neutrophils (%) (Auto) % (45.0-75.0) Lymphocytes (%) (Auto) % (20.0-45.0) Monocytes (%) (Auto) % (1.0-10.0) Eosinophils (%) (Auto) % (0.0-3.0) Basophils (%) (Auto) % (0.0-2.0) Differential Total Cells Counted 100 Neutrophils % (Manual) 85 % (45-75) H Lymphocytes % (Manual) 8 % (20-45) L Monocytes % (Manual) 6 % (1-10) Eosinophils % (Manual) 1 % (0-3) Basophils % (Manual) 0 % (0-2) Band Neutrophils 0 % (0-8) Platelet Estimate Decreased L Platelet Morphology Normal Red Blood Cell Morphology Normal Sodium Level 143 MMOL/L (136-145) Potassium Level 4.6 MMOL/L (3.5-5.1) Chloride Level 110 MMOL/L (98-107) H Carbon Dioxide Level 29 MMOL/L (21-32) Anion Gap 5 mmol/L (5-15) Blood Urea Nitrogen 22 mg/dL (7-18) H Creatinine 1.0 MG/DL (0.55-1.30) Estimat Glomerular Filtration Rate > 60 mL/min (>60) Glucose Level 117 MG/DL (74-106) H Calcium Level 8.7 MG/DL (8.5-10.1) Phosphorus Level 2.2 MG/DL (2.5-4.9) L Magnesium Level 2.1 MG/DL (1.8-2.4) Total Bilirubin 0.8 MG/DL (0.2-1.0) Aspartate Amino Transf (AST/SGOT) 19 U/L (15-37) Alanine Aminotransferase (ALT/SGPT) 15 U/L (12-78) Alkaline Phosphatase 66 U/L (46-116) C-Reactive Protein, Quantitative 16.3 mg/dL (0.00-0.90) H Pro-B-Type Natriuretic Peptide 1682 pg/mL (0-125) H Total Protein 5.9 G/DL (6.4-8.2) L Albumin 1.7 G/DL (3.4-5.0) L Globulin 4.2 g/dL Albumin/Globulin Ratio 0.4 (1.0-2.7) L Test 09/02/20 05:56 09/02/20 11:13 POC Whole Blood Glucose 112 MG/DL (74-106) H 148 MG/DL (74-106) H Objective HEAD AND NECK: No JVD.On NRB FM LUNGS: Coarse rhonchi. CARDIOVASCULAR: Regular S1 and S2 with no gallop or murmur. ABDOMEN: Soft. EXTREMITIES: No pitting edema. Sabino Goncalves MD Sep 02, 2020 13:05
--- NOTE | 2020-09-02 13:26 | Diagnostic Imaging Report ---
Indication: Dyspnea, cough Technique: One view of the chest Comparison: 08/29/2020 Findings: Circumferential right pleural effusion, possibly loculated, versus pleural thickening is again demonstrated. There appears to be increasing infiltrate in the right lung and at the left lung base. There is probably some pleural fluid on the left. The heart borders are obscured, heart size probably somewhat enlarged. Impression: Increasing bilateral infiltrates Persistent right pleural effusion versus thickening and probable left pleural effusion
--- NOTE | 2020-09-02 14:21 | Diagnostic Imaging Report ---
Indication: Suspected pleural effusion, anticipated thoracentesis Technique: Grayscale images of the right hemithorax Comparison: Chest radiograph of earlier the same day Findings: No significant pleural fluid is demonstrated. Impression: No pleural effusion demonstrated. Therefore no intervention performed. Findings reported on prior chest radiographs probably represent chronic pleural scarring.
--- NOTE | 2020-09-02 19:05 | NUR ---
NURSE HAND-OFF REPORT: Important Events on Shift:Thoracentesis canceled due to no significant pleural effusion. Patient Status: Diet: Pending Orders: Pending Results/Labs: Pending MD notification: Latest Vital Signs: Temperature 97.9 , Pulse 81 , B/P 149 /61 , Respiratory Rate 21 , O2 SAT 96 , Nasal Cannula, O2 Flow Rate 15.0 . Vital Sign Comment: EKG Rhythm: SR w/ BBB Rhythm change?: N Notified?: America Harris MD Response: No New Orders Received Latest Wong Fall Score: 55 Fall Risk: High Risk Safety Measures: Call light Within Reach, Bed Alarm Zone 1, Side Rails Side Rails x3, Bed position Low and Locked. Fall Precautions: Yellow Socks Yellow Gown Door Sign Patient Fall Education Report given to . pt is awake and stable, no stress noted, spo2 97%, endorsed plan of care, endorsed to monitor spo2.
--- NOTE | 2020-09-02 21:21 | General Progress Note ---
Subjective ROS Limited/Unobtainable: Yes Allergies: Coded Allergies: No Known Allergies (Unverified , 01/04/19) Objective Last 24 Hour Vital Signs Date Time Temp Pulse Resp B/P (MAP) Pulse Ox O2 Delivery O2 Flow Rate FiO2 09/02/20 20:13 95 Non-Rebreather 15.0 100 09/02/20 15:51 97.9 81 21 149/61 (90) 96 09/02/20 15:15 85 09/02/20 12:00 97.9 86 22 146/71 (96) 97 09/02/20 11:43 67 09/02/20 09:00 Non-Rebreather 15.0 09/02/20 08:00 97.7 90 22 132/64 (86) 95 09/02/20 07:52 82 09/02/20 04:00 98.4 76 22 109/62 (78) 95 09/02/20 04:00 59 09/02/20 00:00 67 09/02/20 00:00 98.6 76 20 102/61 (75) 96 Laboratory Tests 09/01/20 21:35: POC Whole Blood Glucose 187H 09/02/20 05:50: White Blood Count 13.0H, Red Blood Count 5.01, Hemoglobin 13.5L, Hematocrit 42.2, Mean Corpuscular Volume 84, Mean Corpuscular Hemoglobin 26.9L, Mean Corpuscular Hemoglobin Concent 31.9L, Red Cell Distribution Width 14.7, Platelet Count 126L, Mean Platelet Volume 8.5, Neutrophils (%) (Auto) , Lymphocytes (%) (Auto) , Monocytes (%) (Auto) , Eosinophils (%) (Auto) , Basophils (%) (Auto) , Differential Total Cells Counted 100, Neutrophils % (Manual) 85H, Lymphocytes % (Manual) 8L, Monocytes % (Manual) 6, Eosinophils % (Manual) 1, Basophils % (Manual) 0, Band Neutrophils 0, Platelet Estimate DecreasedL, Platelet Morpholog y Normal, Red Blood Cell Morphology Normal, Sodium Level 143, Potassium Level 4.6, Chloride Level 110H, Carbon Dioxide Level 29, Anion Gap 5, Blood Urea Nitrogen 22H, Creatinine 1.0, Estimat Glomerular Filtration Rate > 60, Glucose Level 117H, Calcium Level 8.7, Phosphorus Level 2.2L, Magnesium Level 2.1, Total Bilirubin 0.8, Aspartate Amino Transf (AST/SGOT) 19, Alanine Aminotransferase (ALT/SGPT) 15, Alkaline Phosphatase 66, C-Reactive Protein, Quantitative 16.3H, Pro-B-Type Natriuretic Peptide 1682H, Total Protein 5.9L, Albumin 1.7L, Globulin 4.2, Albumin/Globulin Ratio 0.4L 09/02/20 05:56: POC Whole Blood Glucose 112H 09/02/20 11:13: POC Whole Blood Glucose 148H 09/02/20 17:00: POC Whole Blood Glucose [Pending] Height (Feet): 5 Height (Inches): 8.00 Weight (Pounds): 163 Assessment/Plan Problem List: (1) Renal failure (ARF), acute on chronic ICD Codes: N17.9 - Acute kidney failure, unspecified; N18.9 - Chronic kidney disease, unspecified SNOMED: 906420208 (2) Diabetes mellitus ICD Codes: E11.9 - Type 2 diabetes mellitus without complications SNOMED: 56731711 (3) Sepsis due to urinary tract infection ICD Codes: A41.9 - Sepsis, unspecified organism; N39.0 - Urinary tract infection, site not specified SNOMED: 747633160 (4) Episode of generalized weakness ICD Codes: R53.1 - Weakness SNOMED: 43383636 (5) Renal failure (ARF), acute on chronic ICD Codes: N17.9 - Acute kidney failure, unspecified; N18.9 - Chronic kidney disease, unspecified SNOMED: 990295705 (6) CVA, old, hemiparesis ICD Codes: I69.359 - Hemiplegia and hemiparesis following cerebral infarction affecting unspecified side SNOMED: 919458838 (7) Hypoxia ICD Codes: R09.02 - Hypoxemia SNOMED: 043273834 (8) 2019 novel coronavirus detected ICD Codes: U07.1 - COVID-19 SNOMED: 7797733007534391 (9) BPH (benign prostatic hyperplasia) ICD Codes: N40.0 - Benign prostatic hyperplasia without lower urinary tract symptoms SNOMED: 223103010 Status: progressing, unchanged Assessment/Plan: covid positive renal failure leukocytosis afebrile weak cva Jose David Headley MD Sep 02, 2020 21:21
[2020-09-03] VITALS: BP 136/69
[2020-09-03 04:00] VITALS: BP 148/69
[2020-09-03] MEDS: Piperacillin/Tazobactam 3.375 GM in NS 110 ML IVPB SCH ×3 (05:08→21:29)
[2020-09-03] MEDS: Promethazine/Codeine 5ml UD ORAL PRN (05:08)
[2020-09-03] MEDS: NovoLOG Insulin Flexpen SUBQ SCH ×4 (06:37→21:14)
--- NOTE | 2020-09-03 07:02 | NUR ---
NURSE HAND-OFF REPORT: Important Events on Shift:Pt continued scheduled medications. Pt clean Patient Status: Stable Diet: Cardiac Pending Orders: Pending Results/Labs:AM labs Pending notification: Latest Vital Signs: Temperature 97.9 , Pulse 90 , B/P 136 /69 , Respiratory Rate 20 , O2 SAT 96 , Nasal Cannula, O2 Flow Rate 15.0 . Vital Sign Comment: VSS EKG Rhythm: SR BBB Rhythm change?: N Notified?: America Harris MD Response: No New Orders Received Latest Wong Fall Score: 55 Fall Risk: High Risk Safety Measures: Call light Within Reach, Bed Alarm Zone 1, Side Rails Side Rails x3, Bed position Low and Locked. Fall Precautions: Yellow Socks Yellow Gown Door Sign Patient Fall Education Report given to BRYAN Spaulding.
--- NOTE | 2020-09-03 07:29 | NUR ---
NURSE NOTES: received report update from BRYAN Ashton. Pt is siting up high fowlers eating breakfast. Pt is stable on 15L NRB, 97% spo2 unlabored even breathing, no s/s or complaint of distress at this time. Pt has R sided weakness noted. Sacral stage 1 noted, redness on R axillary covered with optifoam. Pt has condom catheter. Pt IV R FA 22g running zoysn, asymptomatic and intact. IV on LFA 22g, SL asymptomatic and intact. Pt bed low and locked, call light in reach and bed alarm on. pt verbalized understanding to call for help.
[2020-09-03 08:00] VITALS: BP 108/48
[2020-09-03] MEDS: Tamsulosin 0.4mg cap ORAL SCH ×2 (08:03→17:37)
[2020-09-03] MEDS: Eliquis 5mg tablet ORAL SCH ×3 (08:04→17:37)
[2020-09-03 08:05] LABS: ANION GAP 3 mmol/L (5-15); BLOOD UREA NITROGEN 18 mg/dL (7-18); CALCIUM 8.2 MG/DL (8.5-10.1); CARBON DIOXIDE 30 MMOL/L (21-32); CHLORIDE 110 MMOL/L (98-107); CREATININE 0.9 MG/DL (0.55-1.30); POTASSIUM 4.8 MMOL/L (3.5-5.1); SODIUM 143 MMOL/L (136-145)
--- NOTE | 2020-09-03 08:50 | Infectious Diseases Prog Note ---
Assessment/Plan 84yo M with: Afebrile Normal WBC Lymphopenia COVID pneumonia, severe Acute hypoxic resp failure 2/2 COVID pna UTI/cystitis 08/17 BCx NTD UCx +ESBL E.coli CXR: No significant change in tortuosity/ectasia of the thoracic aorta. Negative for cardiac enlargement. Negative for focal consolidation, pneumothorax or pleural fluid collections. COVID rapid test positive, PCR positive 08/22 CXR: New or markedly worsened bilateral infiltrates, since prior exam of 5 days earlier 08/28 CXR: Worsening bilateral infiltrates, versus edema, bilaterally 08/29 CXR: Right pleural effusion and infiltrates, unchanged. Improving left basilar atelectasis and infiltrate 09/02 CXR: Increasing bilateral infiltrates. Cr 1.8, improving 08/19 Renal US: Negative for hydronephrosis. 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 Bilateral renal cysts, large on the right. Plan: Cont Zosyn #7/7 given worsening resp status Resp cx if able Recommend diuresis, BNP >7000k Trend WBC 08/27 SP dex #10 08/24 SP RDV #5, ertapenem #5 for UTI 08/23 SP Azithro #5 Convalescent plasma unfortunately not available at this institution so unable to give, additionally unclear if it improves mortality/outcomes or not Monitor CBC/CMP Monitor temp curve, hemodynamics Monitor resp status D/w RN Thank you for this consult. [facility] will continue to follow. Subjective Allergies: Coded Allergies: No Known Allergies (Unverified , 01/04/19) AF NAD on 15L NRB WBC 13 yesterday Objective Last 24 Hour Vital Signs Date Time Temp Pulse Resp B/P (MAP) Pulse Ox O2 Delivery O2 Flow Rate FiO2 09/03/20 04:00 90 09/03/20 04:00 98.1 100 19 148/69 (95) 94 09/03/20 00:00 89 09/03/20 00:00 97.9 68 20 136/69 (91) 96 09/02/20 22:00 97.7 94 18 140/64 (89) 96 09/02/20 22:00 88 09/02/20 21:00 Non-Rebreather 15.0 09/02/20 20:13 95 Non-Rebreather 15.0 100 09/02/20 20:00 97.7 94 18 146/65 (92) 96 09/02/20 15:51 97.9 81 21 149/61 (90) 96 09/02/20 15:15 85 09/02/20 12:00 97.9 86 22 146/71 (96) 97 09/02/20 11:43 67 09/02/20 09:00 Non-Rebreather 15.0 Height (Feet): 5 Height (Inches): 8.00 Weight (Pounds): 163 Gen: NAD HEENT: NCAT Pulm: BL chest rise Abd: Non-distended Ext: No c/c/e Skin: No visible rashes Neuro: Awake, interactive Laboratory Tests Test 09/02/20 11:13 09/02/20 17:00 09/02/20 21:38 09/03/20 06:15 POC Whole Blood Glucose 148 MG/DL (74-106) H Pending Pending Pending Test 09/03/20 06:45 Sodium Level 143 MMOL/L (136-145) Potassium Level 4.8 MMOL/L (3.5-5.1) Chloride Level 110 MMOL/L (98-107) H Carbon Dioxide Level 30 MMOL/L (21-32) Anion Gap 3 mmol/L (5-15) L Blood Urea Nitrogen 18 mg/dL (7-18) Creatinine 0.9 MG/DL (0.55-1.30) Estimat Glomerular Filtration Rate > 60 mL/min (>60) Glucose Level 119 MG/DL (74-106) H Calcium Level 8.2 MG/DL (8.5-10.1) L Current Medications Medications (Trade) Dose Ordered Sig/Amaya Route PRN Reason Start Time Stop Time Status Last Admin Dose Admin Acetaminophen (Tylenol) 650 mg Q4H PRN ORAL Temp >100.5 08/17/20 19:45 09/16/20 19:44 Albuterol/ Ipratropium (Combivent Respimat) 1 puff Q4H PRN INH Shortness of Breath 08/18/20 13:00 09/17/20 12:59 Apixaban (Eliquis) 5 mg BID ORAL 08/18/20 18:00 11/16/20 17:59 09/03/20 08:39 Dextrose (Dextrose 50%) 25 ml Q30M PRN IV Hypoglycemia 08/18/20 11:45 11/16/20 11:44 Dextrose (Dextrose 50%) 50 ml Q30M PRN IV Hypoglycemia 08/18/20 11:45 11/16/20 11:44 Insulin Aspart (NovoLOG) BEFORE MEALS AND HS SUBQ 08/18/20 16:30 11/16/20 16:29 09/03/20 06:37 Ondansetron HCl (Zofran) 4 mg Q6H PRN IVP Nausea & Vomiting 08/17/20 19:45 09/16/20 19:44 Pantoprazole (Protonix) 40 mg DAILY ORAL 08/18/20 09:00 09/17/20 08:59 09/03/20 08:03 Piperacillin Sod/ Tazobactam Sod 3.375 gm/Sodium Chloride 110 ml @ 27.5 mls/hr EVERY 8 HOURS IVPB 08/28/20 13:00 09/03/20 23:59 09/03/20 05:08 Polyethylene Glycol (Miralax) 17 gm DAILYPRN PRN ORAL Constipation 08/17/20 19:45 09/16/20 19:44 08/19/20 17:56 Potassium Chloride (K-Dur) 20 meq DAILY ORAL 08/29/20 12:45 11/27/20 12:44 09/03/20 08:03 Promethazine HCl/ Codeine (Phenergan with Codeine) 5 ml Q6H PRN ORAL cough 08/17/20 19:45 09/16/20 19:44 09/03/20 05:08 Tamsulosin HCl (Flomax) 0.4 mg BID ORAL 08/18/20 09:00 09/17/20 08:59 09/03/20 08:03 Aneta Nguyen M.D. Sep 03, 2020 08:50
--- NOTE | 2020-09-03 09:30 | NUR ---
NURSE NOTES: Notified Dr Sacha mathews administration , Plt 126. "ok to give"
--- NOTE | 2020-09-03 10:15 | Nephrology Progress Note ---
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 Hypertension Diabetes, hypoalbuminemia BPH Plan September 03: Labs reviewed. Renal parameters stable. Continue per consultants September 02: Labs reviewed. On nonrebreather mask. Low phosphorus noted and addressed. September 01: No labs drawn today. Remains on nonrebreather mask. Will order lab tomorrow. Continue to monitor renal parameters and electrolytes. Continue per consultants. August 31: Labs reviewed. Remains on Venturi mask. Full code. Continue to monitor renal parameters. August 30: No CHEM panel drawn today. Remains full code. On nonrebreather mask. Continue to monitor renal parameters. August 29: Labs reviewed. Abnormal electrolyte addressed. Continue per consultants. August 28: Labs reviewed. Magnesium and phosphorus replacement ordered. Continue per consultants. August 27: No labs drawn today. Continue per consultants. Will check lab in a.m. August 26: White blood cells 14.9. Renal parameters stable. Continue per consultants. August 25: Labs are reviewed.WBCs [place] [address]31. Renal parameters stable. August 24: Status quo. No labs drawn today. Will check lab tomorrow. August 23: Status quo. Labs reviewed. Renal parameters are stable. Continue per consultants. August 22: Status quo. Stable renal parameters. Continue per consultants. August 21: Labs were reviewed. Renal parameters are stable. Continue per consultants. August 20: Labs reviewed. Creatinine now normalized. Electrolytes within normal limit. Continue per consultants. Antibiotics Slow hydrate with normal saline Monitor renal parameters Keep the blood pressure blood sugar in check Per orders Subjective ROS Limited/Unobtainable: No Constitutional: Reports: malaise Objective Objective Last 24 Hour Vital Signs Date Time Temp Pulse Resp B/P (MAP) Pulse Ox O2 Delivery O2 Flow Rate FiO2 09/03/20 09:00 Non-Rebreather 15.0 09/03/20 08:00 93 09/03/20 08:00 97.6 100 22 108/48 (68) 96 09/03/20 04:00 90 12/29/20 04:00 98.1 100 19 148/69 (95) 94 09/03/20 00:00 89 09/03/20 00:00 97.9 68 20 136/69 (91) 96 09/02/20 22:00 97.7 94 18 140/64 (89) 96 09/02/20 22:00 88 09/02/20 21:00 Non-Rebreather 15.0 09/02/20 20:13 95 Non-Rebreather 15.0 100 09/02/20 20:00 97.7 94 18 146/65 (92) 96 09/02/20 15:51 97.9 81 21 149/61 (90) 96 09/02/20 15:15 85 09/02/20 12:00 97.9 86 22 146/71 (96) 97 09/02/20 11:43 67 Intake and Output 09/02/20 09/03/20 19:00 07:00 Intake Total 364.164 ml 480 ml Balance 364.164 ml 480 ml Intake Oral 480 ml IV Total 364.164 ml # Voids 3 4 # Bowel Movements 1 2 Current Medications Medications (Trade) Dose Ordered Sig/Amaya Route PRN Reason Start Time Stop Time Status Last Admin Dose Admin Acetaminophen (Tylenol) 650 mg Q4H PRN ORAL Temp >100.5 08/17/20 19:45 09/16/20 19:44 Albuterol/ Ipratropium (Combivent Respimat) 1 puff Q4H PRN INH Shortness of Breath 08/18/20 13:00 09/17/20 12:59 Apixaban (Eliquis) 5 mg BID ORAL 08/18/20 18:00 11/16/20 17:59 09/03/20 08:39 Dextrose (Dextrose 50%) 25 ml Q30M PRN IV Hypoglycemia 08/18/20 11:45 11/16/20 11:44 Dextrose (Dextrose 50%) 50 ml Q30M PRN IV Hypoglycemia 08/18/20 11:45 11/16/20 11:44 Insulin Aspart (NovoLOG) BEFORE MEALS AND HS SUBQ 08/18/20 16:30 11/16/20 16:29 09/03/20 06:37 Ondansetron HCl (Zofran) 4 mg Q6H PRN IVP Nausea & Vomiting 08/17/20 19:45 09/16/20 19:44 Pantoprazole (Protonix) 40 mg DAILY ORAL 08/18/20 09:00 09/17/20 08:59 09/03/20 08:03 Piperacillin Sod/ Tazobactam Sod 3.375 gm/Sodium Chloride 110 ml @ 27.5 mls/hr EVERY 8 HOURS IVPB 08/28/20 13:00 09/03/20 23:59 09/03/20 13:00 Polyethylene Glycol (Miralax) 17 gm DAILYPRN PRN ORAL Constipation 08/17/20 19:45 09/16/20 19:44 08/19/20 17:56 Potassium Chloride (K-Dur) 20 meq DAILY ORAL 08/29/20 12:45 11/27/20 12:44 09/03/20 08:03 Promethazine HCl/ Codeine (Phenergan with Codeine) 5 ml Q6H PRN ORAL cough 08/17/20 19:45 09/16/20 19:44 09/03/20 05:08 Tamsulosin HCl (Flomax) 0.4 mg BID ORAL 08/18/20 09:00 09/17/20 08:59 09/03/20 08:03 Laboratory Tests 09/02/20 11:13: POC Whole Blood Glucose 148H 09/02/20 17:00: POC Whole Blood Glucose [Pending] 09/02/20 21:38: POC Whole Blood Glucose [Pending] 09/03/20 06:15: POC Whole Blood Glucose [Pending] 09/03/20 06:45: Sodium Level 143, Potassium Level 4.8, Chloride Level 110H, Carbon Dioxide Level 30, Anion Gap 3L, Blood Urea Nitrogen 18, Creatinine 0.9, Estimat Glomerular Filtration Rate > 60, Glucose Level 119H, Calcium Level 8.2L Height (Feet): 5 Height (Inches): 8.00 Weight (Pounds): 163 General Appearance: other - On nonrebreather mask Cardiovascular: tachycardia Respiratory/Chest: decreased breath sounds Abdomen: distended Objective No change Devonte Zuniga MD Sep 03, 2020 10:15
[2020-09-03 10:39] LABS: ALANINE AMINOTRANSFERASE 15 U/L (12-78); ALBUMIN 1.7 G/DL (3.4-5.0); ALKALINE PHOSPHATASE 64 U/L (46-116); ASPARTATE AMINO TRANSFERASE 22 U/L (15-37); BILIRUBIN,DIRECT 0.3 MG/DL (0.0-0.3); BILIRUBIN,TOTAL 0.7 MG/DL (0.2-1.0); PHOSPHORUS 2.7 MG/DL (2.5-4.9)
--- NOTE | 2020-09-03 10:57 | Pulmonology Progress Note ---
Subjective ROS Limited/Unobtainable: Yes HEENT: Repors: no symptoms Respiratory: Reports: no symptoms Allergies: Coded Allergies: No Known Allergies (Unverified , 01/04/19) Objective Last 24 Hour Vital Signs Date Time Temp Pulse Resp B/P (MAP) Pulse Ox O2 Delivery O2 Flow Rate FiO2 09/03/20 09:00 Non-Rebreather 15.0 09/03/20 08:00 93 09/03/20 08:00 97.6 100 22 108/48 (68) 96 09/03/20 04:00 90 09/03/20 04:00 98.1 100 19 148/69 (95) 94 09/03/20 00:00 89 09/03/20 00:00 97.9 68 20 136/69 (91) 96 09/02/20 22:00 97.7 94 18 140/64 (89) 96 09/02/20 22:00 88 09/02/20 21:00 Non-Rebreather 15.0 09/02/20 20:13 95 Non-Rebreather 15.0 100 09/02/20 20:00 97.7 94 18 146/65 (92) 96 09/02/20 15:51 97.9 81 21 149/61 (90) 96 09/02/20 15:15 85 09/02/20 12:00 97.9 86 22 146/71 (96) 97 09/02/20 11:43 67 Intake and Output 09/02/20 09/03/20 19:00 07:00 Intake Total 364.164 ml 480 ml Balance 364.164 ml 480 ml Intake Oral 480 ml IV Total 364.164 ml # Voids 3 4 # Bowel Movements 1 2 General Appearance: WD/WN HEENT: normocephalic, atraumatic, other - O2 Respiratory: chest wall non-tender, rhonchi - bilaterally - scattered Cardiovascular: normal peripheral pulses, normal rate, regular rhythm Abdomen: normal bowel sounds, soft, non tender Genitourinary: normal external genitalia Extremities: no clubbing Neurologic: alert, responsive, other - R side paresis Lymphatic: no neck adenopathy Musculoskeletal: atrophy - BLE Laboratory Tests 09/02/20 11:13: POC Whole Blood Glucose 148H 09/02/20 17:00: POC Whole Blood Glucose [Pending] 09/02/20 21:38: POC Whole Blood Glucose [Pending] 09/03/20 06:15: POC Whole Blood Glucose [Pending] 09/03/20 06:45: Sodium Level 143, Potassium Level 4.8, Chloride Level 110H, Carbon Dioxide Level 30, Anion Gap 3L, Blood Urea Nitrogen 18, Creatinine 0.9, Estimat Glomerular Filtration Rate > 60, Glucose Level 119H, Calcium Level 8.2L, Phosphorus Level 2.7, Magnesium Level 2.0, Total Bilirubin 0.7, Direct Bilirubin 0.3, Aspartate Amino Transf (AST/SGOT) 22, Alanine Aminotransferase (ALT/SGPT) 15, Alkaline Phosphatase 64, Total Protein 5.1L, Albumin 1.7L Current Medications Medications (Trade) Dose Ordered Sig/Amaya Route PRN Reason Start Time Stop Time Status Last Admin Dose Admin Acetaminophen (Tylenol) 650 mg Q4H PRN ORAL Temp >100.5 08/17/20 19:45 09/16/20 19:44 Albuterol/ Ipratropium (Combivent Respimat) 1 puff Q4H PRN INH Shortness of Breath 08/18/20 13:00 09/17/20 12:59 Apixaban (Eliquis) 5 mg BID ORAL 08/18/20 18:00 11/16/20 17:59 09/03/20 08:39 Dextrose (Dextrose 50%) 25 ml Q30M PRN IV Hypoglycemia 08/18/20 11:45 11/16/20 11:44 Dextrose (Dextrose 50%) 50 ml Q30M PRN IV Hypoglycemia 08/18/20 11:45 11/16/20 11:44 Insulin Aspart (NovoLOG) BEFORE MEALS AND HS SUBQ 08/18/20 16:30 11/16/20 16:29 09/03/20 06:37 Ondansetron HCl (Zofran) 4 mg Q6H PRN IVP Nausea & Vomiting 08/17/20 19:45 09/16/20 19:44 Pantoprazole (Protonix) 40 mg DAILY ORAL 08/18/20 09:00 09/17/20 08:59 09/03/20 08:03 Piperacillin Sod/ Tazobactam Sod 3.375 gm/Sodium Chloride 110 ml @ 27.5 mls/hr EVERY 8 HOURS IVPB 08/28/20 13:00 09/03/20 23:59 09/03/20 05:08 Polyethylene Glycol (Miralax) 17 gm DAILYPRN PRN ORAL Constipation 08/17/20 19:45 09/16/20 19:44 08/19/20 17:56 Potassium Chloride (K-Dur) 20 meq DAILY ORAL 08/29/20 12:45 11/27/20 12:44 09/03/20 08:03 Promethazine HCl/ Codeine (Phenergan with Codeine) 5 ml Q6H PRN ORAL cough 08/17/20 19:45 09/16/20 19:44 09/03/20 05:08 Tamsulosin HCl (Flomax) 0.4 mg BID ORAL 08/18/20 09:00 09/17/20 08:59 09/03/20 08:03 Assessment/Plan Problems: (1) Nosocomial pneumonia (2) Hypoxia (3) 2019 novel coronavirus detected (4) CVA, old, hemiparesis (5) Hypertension (6) Diabetes mellitus (7) BPH (benign prostatic hyperplasia) Assessment/Plan wbc still high, afebrile US of chest didn't show any fluids afebrile no new complains respiratory isolation off steroids and Remdesevir titrate fio2 to sat of 92% check inflammatory markers sliding scale diabetic diet 08/26 Suspect slight worsening of right lung infiltrates. 08/28 cxr: Worsening bilateral infiltrates, versus edema, bilaterally 08/29: Right pleural effusion and infiltrates, unchanged 12:28: US of right chest: no fluid Angelita Alarcon MD Sep 03, 2020 10:57
[2020-09-03 12:00] VITALS: BP 141/64
--- NOTE | 2020-09-03 12:03 | Cardiac Electrophysiology PN ---
Assessment/Plan Assessment/Plan 1. COVID-19 pneumonia. S/P Remdesevir and dexamethasone On apixaban 5 bid, iv Abx and 15 liter NRB FM 2. Hypertension. Stable off antihypertensive agents. 3. Diabetes. 4. History of CVA with hemiparesis. 5. Benign prostatic hypertrophy. 6. Neno with HR high 40s, likely due to Covid. Asymptomatic 7. Right pleural effusion. Thoracentesis yesterday not done as not enough fluid DW RN Subjective Subjective On 15 liter NRBFM in Covid isolation. In SR. On Zosyn Thoracentesis yesterday not done as not enough fluid Platelet count is 121 on Eliquis Objective Last 24 Hour Vital Signs Date Time Temp Pulse Resp B/P (MAP) Pulse Ox O2 Delivery O2 Flow Rate FiO2 09/03/20 09:00 Non-Rebreather 15.0 09/03/20 08:00 93 09/03/20 08:00 97.6 100 22 108/48 (68) 96 09/03/20 04:00 90 09/03/20 04:00 98.1 100 19 148/69 (95) 94 09/03/20 00:00 89 09/03/20 00:00 97.9 68 20 136/69 (91) 96 09/02/20 22:00 97.7 94 18 140/64 (89) 96 09/02/20 22:00 88 09/02/20 21:00 Non-Rebreather 15.0 09/02/20 20:13 95 Non-Rebreather 15.0 100 09/02/20 20:00 97.7 94 18 146/65 (92) 96 09/02/20 15:51 97.9 81 21 149/61 (90) 96 09/02/20 15:15 85 Intake and Output 09/02/20 09/03/20 19:00 07:00 Intake Total 364.164 ml 480 ml Balance 364.164 ml 480 ml Intake Oral 480 ml IV Total 364.164 ml # Voids 3 4 # Bowel Movements 1 2 Laboratory Tests Test 09/02/20 17:00 09/02/20 21:38 09/03/20 06:15 09/03/20 06:45 POC Whole Blood Glucose Pending Pending Pending Sodium Level 143 MMOL/L (136-145) Potassium Level 4.8 MMOL/L (3.5-5.1) Chloride Level 110 MMOL/L (98-107) H Carbon Dioxide Level 30 MMOL/L (21-32) Anion Gap 3 mmol/L (5-15) L Blood Urea Nitrogen 18 mg/dL (7-18) Creatinine 0.9 MG/DL (0.55-1.30) Estimat Glomerular Filtration Rate > 60 mL/min (>60) Glucose Level 119 MG/DL (74-106) H Calcium Level 8.2 MG/DL (8.5-10.1) L Phosphorus Level 2.7 MG/DL (2.5-4.9) Magnesium Level 2.0 MG/DL (1.8-2.4) Total Bilirubin 0.7 MG/DL (0.2-1.0) Direct Bilirubin 0.3 MG/DL (0.0-0.3) Aspartate Amino Transf (AST/SGOT) 22 U/L (15-37) Alanine Aminotransferase (ALT/SGPT) 15 U/L (12-78) Alkaline Phosphatase 64 U/L (46-116) Total Protein 5.1 G/DL (6.4-8.2) L Albumin 1.7 G/DL (3.4-5.0) L Test 09/03/20 11:12 POC Whole Blood Glucose 102 MG/DL (74-106) Objective HEAD AND NECK: No JVD.On NRB FM LUNGS: Coarse rhonchi. CARDIOVASCULAR: Regular S1 and S2 with no gallop or murmur. ABDOMEN: Soft. EXTREMITIES: No pitting edema. Sabino Goncalves MD Sep 03, 2020 12:03
[2020-09-03 16:00] VITALS: BP 140/66
--- NOTE | 2020-09-03 18:10 | NUR ---
NURSE HAND-OFF REPORT: Important Events on Shift: ok to give bisi plt 126 Patient Status: fc, stable Diet: cardiac Pending Orders: Pending Results/Labs: Pending MD notification: Latest Vital Signs: Temperature 97.5 , Pulse 98 , B/P 140 /66 , Respiratory Rate 22 , O2 SAT 95 , Nasal Cannula, O2 Flow Rate 15.0 . Vital Sign Comment: EKG Rhythm: SR w/ BBB Rhythm change?: N Notified?: America Harris MD Response: No New Orders Received Latest Wong Fall Score: 55 Fall Risk: High Risk Safety Measures: Call light Within Reach, Bed Alarm Zone 1, Side Rails Side Rails x3, Bed position Low and Locked. Fall Precautions: Yellow Socks Yellow Gown Door Sign Patient Fall Education Report to be given. Addendum: 09/03/20 at 1922 by Chelly Rosario RN RN Plan of care and report endorsed to BRYAN Ashton. Pt is stable.
--- NOTE | 2020-09-03 19:10 | NUR ---
NURSE NOTES: Pt received from BRYAN Spaulding. Pt is resting comfortably in bed and denies any pain. Pt is bedbound due to weakness and uses cane at baseline. Pt is on cardiac monitoring SR and asymptomatic. PT is on 15LPM NRB and sating well; pt desats when off mask. Pt has LFA 22G SL patent with skin dry and intact with redness. Bed is locked and in lowest position with call light within reach. Will continue to monitor.
[2020-09-03 20:00] VITALS: BP 146/62
--- NOTE | 2020-09-03 21:07 | General Progress Note ---
Subjective ROS Limited/Unobtainable: Yes Allergies: Coded Allergies: No Known Allergies (Unverified , 01/04/19) Objective Last 24 Hour Vital Signs Date Time Temp Pulse Resp B/P (MAP) Pulse Ox O2 Delivery O2 Flow Rate FiO2 09/03/20 19:30 94 Non-Rebreather 15.0 100 09/03/20 16:00 97.5 98 22 140/66 (90) 95 09/03/20 16:00 100 09/03/20 12:00 97.5 88 22 141/64 (89) 96 09/03/20 12:00 81 09/03/20 09:00 Non-Rebreather 15.0 09/03/20 08:00 93 09/03/20 08:00 97.6 100 22 108/48 (68) 96 09/03/20 07:00 96 Non-Rebreather 15.0 100 09/03/20 04:00 90 09/03/20 04:00 98.1 100 19 148/69 (95) 94 09/03/20 00:00 89 09/03/20 00:00 97.9 68 20 136/69 (91) 96 09/02/20 22:00 97.7 94 18 140/64 (89) 96 09/02/20 22:00 88 Intake and Output 09/02/20 09/03/20 19:00 07:00 Intake Total 364.164 ml 480 ml Balance 364.164 ml 480 ml Intake Oral 480 ml IV Total 364.164 ml # Voids 3 4 # Bowel Movements 1 2 Laboratory Tests 09/02/20 21:38: POC Whole Blood Glucose [Pending] 09/03/20 06:15: POC Whole Blood Glucose [Pending] 09/03/20 06:45: Sodium Level 143, Potassium Level 4.8, Chloride Level 110H, Carbon Dioxide Level 30, Anion Gap 3L, Blood Urea Nitrogen 18, Creatinine 0.9, Estimat Glomerular Filtration Rate > 60, Glucose Level 119H, Calcium Level 8.2L, Phosphorus Level 2.7, Magnesium Level 2.0, Total Bilirubin 0.7, Direct Bilirubin 0.3, Aspartate Amino Transf (AST/SGOT) 22, Alanine Aminotransferase (ALT/SGPT) 15, Alkaline Phosphatase 64, Total Protein 5.1L, Albumin 1.7L 09/03/20 11:12: POC Whole Blood Glucose 102 09/03/20 16:45: POC Whole Blood Glucose 112H Height (Feet): 5 Height (Inches): 8.00 Weight (Pounds): 163 Assessment/Plan Problem List: (1) Renal failure (ARF), acute on chronic ICD Codes: N17.9 - Acute kidney failure, unspecified; N18.9 - Chronic kidney disease, unspecified SNOMED: 711501492 (2) Diabetes mellitus ICD Codes: E11.9 - Type 2 diabetes mellitus without complications SNOMED: 23364920 (3) Sepsis due to urinary tract infection ICD Codes: A41.9 - Sepsis, unspecified organism; N39.0 - Urinary tract infection, site not specified SNOMED: 766381512 (4) Episode of generalized weakness ICD Codes: R53.1 - Weakness SNOMED: 03925107 (5) Renal failure (ARF), acute on chronic ICD Codes: N17.9 - Acute kidney failure, unspecified; N18.9 - Chronic kidney disease, unspecified SNOMED: 294207471 (6) CVA, old, hemiparesis ICD Codes: I69.359 - Hemiplegia and hemiparesis following cerebral infarction affecting unspecified side SNOMED: 246048598 (7) Hypoxia ICD Codes: R09.02 - Hypoxemia SNOMED: 855509866 (8) 2019 novel coronavirus detected ICD Codes: U07.1 - COVID-19 SNOMED: 7889528376203158 (9) BPH (benign prostatic hyperplasia) ICD Codes: N40.0 - Benign prostatic hyperplasia without lower urinary tract symptoms SNOMED: 730687952 Status: progressing, unchanged Assessment/Plan: covid positive renal failure resp insuff afebrile Jose David De Los Santos MD Sep 03, 2020 21:07
[2020-09-04] VITALS: BP 142/73
--- NOTE | 2020-09-04 01:45 | NUR ---
NURSE NOTES: Pt experiencing SOB and mild Right Sided chest pain unrelieved by raising head of the bed. Pt reports weakness and breaths not feeling right. Notified Dr Goncalves, Dr. Alarcon, and Dr. Headley and awaiting reply. 12L EKG shows new tachycardia. Will continue to monitor.
[2020-09-04 04:00] VITALS: BP 136/72
[2020-09-04] MEDS: Promethazine/Codeine 5ml UD ORAL PRN ×2 (04:41→11:40)
[2020-09-04 05:07] LABS: ANION GAP 5 mmol/L (5-15); BLOOD UREA NITROGEN 19 mg/dL (7-18); CALCIUM 8.6 MG/DL (8.5-10.1); CARBON DIOXIDE 29 MMOL/L (21-32); CHLORIDE 107 MMOL/L (98-107); POTASSIUM 4.9 MMOL/L (3.5-5.1); SODIUM 141 MMOL/L (136-145)
[2020-09-04] MEDS: NovoLOG Insulin Flexpen SUBQ SCH ×4 (06:30→21:13)
--- NOTE | 2020-09-04 06:35 | NUR ---
NURSE NOTES: Received new orders from Dr. Goncalves regarding pt new onset of right sided chest pain. Will implement orders into plan of care. Will continue to monitor.
[2020-09-04] MEDS ORDERED: Nitroglycerin Subl 0.4mg tab SL PRN (06:45)
--- NOTE | 2020-09-04 06:47 | NUR ---
NURSE HAND-OFF REPORT: Important Events on Shift:Pt reports SOB and right sided chest pain. Patient Status: Tachypneic Diet: Cardiac 1:1 feed Pending Orders: Pending Results/Labs:AM Labs Pending MD notification:Awaiting reply from Dr Alarcon regarding pt right sided chest pain. Latest Vital Signs: Temperature 97.9 , Pulse 104 , B/P 136 /72 , Respiratory Rate 22 , O2 SAT 94 , Nasal Cannula, O2 Flow Rate 15.0 . Vital Sign Comment: VSS EKG Rhythm: Sinus Tachycardia Rhythm change?: N MD Notified?: Y -Dr. Sacha GLASS Response: No New Orders Received Latest Wong Fall Score: 55 Fall Risk: High Risk Safety Measures: Call light Within Reach, Bed Alarm Zone 1, Side Rails Side Rails x3, Bed position Low and Locked. Fall Precautions: Yellow Socks Yellow Gown Door Sign Patient Fall Education Report given to BRYAN Spaulding.
--- NOTE | 2020-09-04 07:22 | NUR ---
NURSE NOTES: received report update from BRYAN Ashton. Pt is siting up high fowlers eating breakfast. Pt is stable on 15L NRB, 93% spo2 unlabored even breathing, no s/s or complaint of distress at this time. Pt has R sided weakness noted. Sacral stage 1 noted, redness on R axillary covered with optifoam. Pt has condom catheter. Pt IV R FA 22g running fluids, asymptomatic and intact. IV on LFA 22g, SL asymptomatic and intact. Pt bed low and locked, call light in reach and bed alarm on. pt verbalized understanding to call for help.
--- NOTE | 2020-09-04 07:53 | NUR ---
CASE MANAGEMENT:REVIEW 09/04/20 SI: COVID INFECTION. HYPOXIA 97.9 104 22 136/72 94% ON 15L/100% NRB WBC+13.0 IS: K-DUR PO QD ELIQUIS PO BID FLOMAX PO BID PROTONIX PO QD : TELEMETRY STATUS DCP: FROM [facility] PLAN: TITRATE OXYGEN
[2020-09-04 08:00] VITALS: BP 140/62
[2020-09-04] MEDS: Tamsulosin 0.4mg cap ORAL SCH ×2 (08:07→17:10)
[2020-09-04] MEDS: Eliquis 5mg tablet ORAL SCH ×2 (08:07→17:10)
--- NOTE | 2020-09-04 08:36 | Infectious Diseases Prog Note ---
Assessment/Plan 84yo M with: Afebrile Normal WBC Lymphopenia COVID pneumonia, severe Acute hypoxic resp failure 2/2 COVID pna UTI/cystitis 08/17 BCx NTD UCx +ESBL E.coli CXR: No significant change in tortuosity/ectasia of the thoracic aorta. Negative for cardiac enlargement. Negative for focal consolidation, pneumothorax or pleural fluid collections. COVID rapid test positive, PCR positive 08/22 CXR: New or markedly worsened bilateral infiltrates, since prior exam of 5 days earlier 08/28 CXR: Worsening bilateral infiltrates, versus edema, bilaterally 08/29 CXR: Right pleural effusion and infiltrates, unchanged. Improving left basilar atelectasis and infiltrate 09/02 CXR: Increasing bilateral infiltrates. Cr 1.8, improving 08/19 Renal US: Negative for hydronephrosis. 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 Bilateral renal cysts, large on the right. Plan: Monitor off abx Recommend diuresis, BNP >7000k Trend WBC AM labs ordered 09/04 SP Zosyn #7 08/27 SP dex #10 08/24 SP RDV #5, ertapenem #5 for UTI 08/23 SP Azithro #5 Convalescent plasma unfortunately not available at this institution so unable to give, additionally unclear if it improves mortality/outcomes or not Monitor CBC/CMP Monitor temp curve, hemodynamics Monitor resp status D/w RN Thank you for this consult. [facility] will continue to follow. Subjective Allergies: Coded Allergies: No Known Allergies (Unverified , 01/04/19) AF NAD on 15L NRB satting 94% Had some more rapid breathing earlier, now OK, resting No new CBC Objective Last 24 Hour Vital Signs Date Time Temp Pulse Resp B/P (MAP) Pulse Ox O2 Delivery O2 Flow Rate FiO2 09/04/20 04:00 97.9 104 22 136/72 (93) 94 09/04/20 04:00 104 09/04/20 00:00 105 09/04/20 00:00 99.0 105 24 142/73 (96) 95 09/03/20 21:00 Non-Rebreather 15.0 09/03/20 20:00 99.7 102 24 146/62 (90) 93 09/03/20 20:00 98 09/03/20 19:30 94 Non-Rebreather 15.0 100 09/03/20 16:00 97.5 98 22 140/66 (90) 95 09/03/20 16:00 100 09/03/20 12:00 97.5 88 22 141/64 (89) 96 09/03/20 12:00 81 09/03/20 09:00 Non-Rebreather 15.0 Height (Feet): 5 Height (Inches): 8.00 Weight (Pounds): 163 Gen: NAD HEENT: NCAT Pulm: BL chest rise Abd: Non-distended Ext: No c/c/e Skin: No visible rashes Neuro: Awake, interactive Laboratory Tests Test 09/03/20 11:12 09/03/20 16:45 09/04/20 04:00 POC Whole Blood Glucose 102 MG/DL (74-106) 112 MG/DL (74-106) H Sodium Level 141 MMOL/L (136-145) Potassium Level 4.9 MMOL/L (3.5-5.1) Chloride Level 107 MMOL/L (98-107) Carbon Dioxide Level 29 MMOL/L (21-32) Anion Gap 5 mmol/L (5-15) Blood Urea Nitrogen 19 mg/dL (7-18) H Creatinine 1.0 MG/DL (0.55-1.30) Estimat Glomerular Filtration Rate > 60 mL/min (>60) Glucose Level 114 MG/DL (74-106) H Calcium Level 8.6 MG/DL (8.5-10.1) Troponin I 0.014 ng/mL (0.000-0.056) Current Medications Medications (Trade) Dose Ordered Sig/Amaya Route PRN Reason Start Time Stop Time Status Last Admin Dose Admin Acetaminophen (Tylenol) 650 mg Q4H PRN ORAL Temp >100.5 08/17/20 19:45 09/16/20 19:44 Albuterol/ Ipratropium (Combivent Respimat) 1 puff Q4H PRN INH Shortness of Breath 08/18/20 13:00 09/17/20 12:59 Apixaban (Eliquis) 5 mg BID ORAL 08/18/20 18:00 11/16/20 17:59 09/04/20 08:07 Dextrose (Dextrose 50%) 25 ml Q30M PRN IV Hypoglycemia 08/18/20 11:45 11/16/20 11:44 Dextrose (Dextrose 50%) 50 ml Q30M PRN IV Hypoglycemia 08/18/20 11:45 11/16/20 11:44 Insulin Aspart (NovoLOG) BEFORE MEALS AND HS SUBQ 08/18/20 16:30 11/16/20 16:29 09/03/20 21:14 Nitroglycerin (Ntg) 0.4 mg Q5M PRN SL Prn Chest Pain 09/04/20 06:45 10/04/20 06:44 Ondansetron HCl (Zofran) 4 mg Q6H PRN IVP Nausea & Vomiting 08/17/20 19:45 09/16/20 19:44 Pantoprazole (Protonix) 40 mg DAILY ORAL 08/18/20 09:00 09/17/20 08:59 09/04/20 08:07 Polyethylene Glycol (Miralax) 17 gm DAILYPRN PRN ORAL Constipation 08/17/20 19:45 09/16/20 19:44 08/19/20 17:56 Potassium Chloride (K-Dur) 20 meq DAILY ORAL 08/29/20 12:45 11/27/20 12:44 09/04/20 08:08 Promethazine HCl/ Codeine (Phenergan with Codeine) 5 ml Q6H PRN ORAL cough 08/17/20 19:45 09/16/20 19:44 09/04/20 04:41 Tamsulosin HCl (Flomax) 0.4 mg BID ORAL 08/18/20 09:00 09/17/20 08:59 09/04/20 08:07 Aneta Nguyen M.D. Sep 04, 2020 08:36
[2020-09-04] MEDS ORDERED: Tubing IV Secondary IV ONE (08:46)
--- NOTE | 2020-09-04 09:16 | Pulmonology Progress Note ---
Subjective ROS Limited/Unobtainable: Yes HEENT: Repors: no symptoms Respiratory: Reports: no symptoms Allergies: Coded Allergies: No Known Allergies (Unverified , 01/04/19) Objective Last 24 Hour Vital Signs Date Time Temp Pulse Resp B/P (MAP) Pulse Ox O2 Delivery O2 Flow Rate FiO2 09/04/20 04:00 97.9 104 22 136/72 (93) 94 09/04/20 04:00 104 09/04/20 00:00 105 09/04/20 00:00 99.0 105 24 142/73 (96) 95 09/03/20 21:00 Non-Rebreather 15.0 09/03/20 20:00 99.7 102 24 146/62 (90) 93 09/03/20 20:00 98 09/03/20 19:30 94 Non-Rebreather 15.0 100 09/03/20 16:00 97.5 98 22 140/66 (90) 95 09/03/20 16:00 100 09/03/20 12:00 97.5 88 22 141/64 (89) 96 09/03/20 12:00 81 Intake and Output 09/03/20 09/04/20 19:00 07:00 Intake Total 800 ml 480 ml Output Total 600 ml 800 ml Balance 200 ml -320 ml Intake Oral 800 ml 480 ml Output Urine Total 600 ml 800 ml # Bowel Movements 2 General Appearance: WD/WN HEENT: normocephalic, atraumatic, other - O2 Respiratory: chest wall non-tender, rhonchi - bilaterally - scattered Cardiovascular: normal peripheral pulses, normal rate, regular rhythm Abdomen: normal bowel sounds, soft, non tender Genitourinary: normal external genitalia Extremities: no clubbing Neurologic: alert, responsive, other - R side paresis Lymphatic: no neck adenopathy Musculoskeletal: atrophy - BLE Laboratory Tests 09/03/20 11:12: POC Whole Blood Glucose 102 09/03/20 16:45: POC Whole Blood Glucose 112H 09/04/20 04:00: Sodium Level 141, Potassium Level 4.9, Chloride Level 107, Carbon Dioxide Level 29, Anion Gap 5, Blood Urea Nitrogen 19H, Creatinine 1.0, Estimat Glomerular Filtration Rate > 60, Glucose Level 114H, Calcium Level 8.6, Troponin I 0.014 Current Medications Medications (Trade) Dose Ordered Sig/Amaya Route PRN Reason Start Time Stop Time Status Last Admin Dose Admin Acetaminophen (Tylenol) 650 mg Q4H PRN ORAL Temp >100.5 08/17/20 19:45 09/16/20 19:44 Albuterol/ Ipratropium (Combivent Respimat) 1 puff Q4H PRN INH Shortness of Breath 08/18/20 13:00 09/17/20 12:59 Apixaban (Eliquis) 5 mg BID ORAL 08/18/20 18:00 11/16/20 17:59 09/04/20 08:07 Dextrose (Dextrose 50%) 25 ml Q30M PRN IV Hypoglycemia 08/18/20 11:45 11/16/20 11:44 Dextrose (Dextrose 50%) 50 ml Q30M PRN IV Hypoglycemia 08/18/20 11:45 11/16/20 11:44 Insulin Aspart (NovoLOG) BEFORE MEALS AND HS SUBQ 08/18/20 16:30 11/16/20 16:29 09/03/20 21:14 Nitroglycerin (Ntg) 0.4 mg Q5M PRN SL Prn Chest Pain 09/04/20 06:45 10/04/20 06:44 Ondansetron HCl (Zofran) 4 mg Q6H PRN IVP Nausea & Vomiting 08/17/20 19:45 09/16/20 19:44 Pantoprazole (Protonix) 40 mg DAILY ORAL 08/18/20 09:00 09/17/20 08:59 09/04/20 08:07 Polyethylene Glycol (Miralax) 17 gm DAILYPRN PRN ORAL Constipation 08/17/20 19:45 09/16/20 19:44 08/19/20 17:56 Potassium Chloride (K-Dur) 20 meq DAILY ORAL 08/29/20 12:45 11/27/20 12:44 09/04/20 08:08 Promethazine HCl/ Codeine (Phenergan with Codeine) 5 ml Q6H PRN ORAL cough 08/17/20 19:45 09/16/20 19:44 09/04/20 04:41 Tamsulosin HCl (Flomax) 0.4 mg BID ORAL 08/18/20 09:00 09/17/20 08:59 12/30/20 08:07 Assessment/Plan Problems: (1) Nosocomial pneumonia (2) Hypoxia (3) 2019 novel coronavirus detected (4) CVA, old, hemiparesis (5) Hypertension (6) Diabetes mellitus (7) BPH (benign prostatic hyperplasia) Assessment/Plan more short of breath repeat cxr , one dose of Lasix afebrile no new complains respiratory isolation off steroids and Remdesevir titrate fio2 to sat of 92% check inflammatory markers sliding scale diabetic diet 08/26 Suspect slight worsening of right lung infiltrates. 08/28 cxr: Worsening bilateral infiltrates, versus edema, bilaterally 08/29: Right pleural effusion and infiltrates, unchanged 12:28: US of right chest: no fluid Angelita lAarcon MD Sep 04, 2020 09:16
--- NOTE | 2020-09-04 09:43 | Consultation ---
History of Present Illness General Date patient seen: Sep 04, 2020 Chief Complaint: Present Illness Allergies: Coded Allergies: No Known Allergies (Unverified , 01/04/19) Medication History Scheduled Apixaban (Eliquis*), 5 MG PO BID, (Reported) Aspirin* (Aspir 81*), 81 MG ORAL DAILY, (Reported) Bisacodyl (Biscolax), 10 MG RC PRN, (Reported) Cranberry Fruit (Cranberry), 2 TAB PO DAILY, (Reported) Dextran 70/Hypromellose (Artificial Tears Eye Drops*), 2 DROP BOTH EYES BEDTIME, (Reported) Docusate Sodium* (Colace*), 100 MG ORAL TWICE A DAY, (Reported) Finasteride* (Proscar*), 5 MG ORAL DAILY, (Reported) Insulin Aspart (Novolog), 0 SQ ACHS, (Reported) Magnesium Hydroxide* (Milk Of Magnesia*), 30 ML ORAL PRN, (Reported) Melatonin/Pyridoxine HCl (B6) (Melatonin 3 mg Tablet), 1 EACH PO BEDTIME, (Reported) Nitroglycerin 0.4MG table* (Nitroglycerin*), 0.4 MG SL every 5 hours, (Reported) Pantoprazole* (Pantoprazole*), 40 MG ORAL DAILY, (Reported) Tamsulosin Hcl (Tamsulosin Hcl*), 0.4 MG ORAL BID, (Reported) Scheduled PRN Acetaminophen (Acetaminophen), 650 MG ORAL Q4H PRN for Mild Pain (Pain Scale 1- 3), (Reported) Clonidine HCl (Clonidine HCl), 0.1 MG ORAL EVERY 6 HOURS PRN for For High Blood Pressure, (Reported) Diazepam* (Valium*), 5 MG ORAL BEDTIME PRN for For Anxiety, (Reported) Mineral Oil (Mineral Oil Enema), 133 ML RC DAILY PRN for Constipation, (Report ed) Polyethylene Glycol 3350* (Miralax*), 17 GM ORAL DAILY PRN for Constipation, (Reported) Patient History Healthcare decision maker Resuscitation status Advanced Directive on File Physical Exam Last 24 Hour Vital Signs Date Time Temp Pulse Resp B/P (MAP) Pulse Ox O2 Delivery O2 Flow Rate FiO2 09/04/20 09:00 Non-Rebreather 15.0 09/04/20 08:00 107 09/04/20 08:00 96.7 107 25 140/62 (88) 97 09/04/20 04:00 97.9 104 22 136/72 (93) 94 09/04/20 04:00 104 09/04/20 00:00 105 09/04/20 00:00 99.0 105 24 142/73 (96) 95 09/03/20 21:00 Non-Rebreather 15.0 09/03/20 20:00 99.7 102 24 146/62 (90) 93 09/03/20 20:00 98 09/03/20 19:30 94 Non-Rebreather 15.0 100 09/03/20 16:00 97.5 98 22 140/66 (90) 95 09/03/20 16:00 100 09/03/20 12:00 97.5 88 22 141/64 (89) 96 09/03/20 12:00 81 Intake and Output 09/03/20 09/04/20 19:00 07:00 Intake Total 800 ml 480 ml Output Total 600 ml 800 ml Balance 200 ml -320 ml Intake Oral 800 ml 480 ml Output Urine Total 600 ml 800 ml # Bowel Movements 2 Laboratory Tests Test 09/03/20 11:12 09/03/20 16:45 09/04/20 04:00 POC Whole Blood Glucose 102 MG/DL (74-106) 112 MG/DL (74-106) H Sodium Level 141 MMOL/L (136-145) Potassium Level 4.9 MMOL/L (3.5-5.1) Chloride Level 107 MMOL/L (98-107) Carbon Dioxide Level 29 MMOL/L (21-32) Anion Gap 5 mmol/L (5-15) Blood Urea Nitrogen 19 mg/dL (7-18) H Creatinine 1.0 MG/DL (0.55-1.30) Estimat Glomerular Filtration Rate > 60 mL/min (>60) Glucose Level 114 MG/DL (74-106) H Calcium Level 8.6 MG/DL (8.5-10.1) Troponin I 0.014 ng/mL (0.000-0.056) Height (Feet): 5 Height (Inches): 8.00 Weight (Pounds): 163 Medications Current Medications Medications (Trade) Dose Ordered Sig/Amaya Route PRN Reason Start Time Stop Time Status Last Admin Dose Admin Acetaminophen (Tylenol) 650 mg Q4H PRN ORAL Temp >100.5 08/17/20 19:45 09/16/20 19:44 Albuterol/ Ipratropium (Combivent Respimat) 1 puff Q4H PRN INH Shortness of Breath 08/18/20 13:00 09/17/20 12:59 Apixaban (Eliquis) 5 mg BID ORAL 08/18/20 18:00 11/16/20 17:59 09/04/20 08:07 Dextrose (Dextrose 50%) 25 ml Q30M PRN IV Hypoglycemia 08/18/20 11:45 11/16/20 11:44 Dextrose (Dextrose 50%) 50 ml Q30M PRN IV Hypoglycemia 08/18/20 11:45 11/16/20 11:44 Furosemide (Lasix) 20 mg ONCE IV 09/04/20 09:15 09/04/20 11:30 Insulin Aspart (NovoLOG) BEFORE MEALS AND HS SUBQ 08/18/20 16:30 11/16/20 16:29 09/03/20 21:14 Nitroglycerin (Ntg) 0.4 mg Q5M PRN SL Prn Chest Pain 09/04/20 06:45 10/04/20 06:44 Ondansetron HCl (Zofran) 4 mg Q6H PRN IVP Nausea & Vomiting 08/17/20 19:45 09/16/20 19:44 Pantoprazole (Protonix) 40 mg DAILY ORAL 08/18/20 09:00 09/17/20 08:59 09/04/20 08:07 Polyethylene Glycol (Miralax) 17 gm DAILYPRN PRN ORAL Constipation 08/17/20 19:45 09/16/20 19:44 08/19/20 17:56 Potassium Chloride (K-Dur) 20 meq DAILY ORAL 08/29/20 12:45 11/27/20 12:44 09/04/20 08:08 Promethazine HCl/ Codeine (Phenergan with Codeine) 5 ml Q6H PRN ORAL cough 08/17/20 19:45 09/16/20 19:44 09/04/20 04:41 Tamsulosin HCl (Flomax) 0.4 mg BID ORAL 08/18/20 09:00 09/17/20 08:59 09/04/20 08:07 Assessment/Plan Assessment/Plan: (1) DJD (2) Covid 19+ seen dictated Vidal Gaona Sep 04, 2020 09:43
--- NOTE | 2020-09-04 11:30 | NUR ---
NURSE NOTES: Pt had BM, refusing to be changed at this time. reassess later.
[2020-09-04 12:00] VITALS: BP 120/62
--- NOTE | 2020-09-04 12:37 | NUR ---
NURSE NOTES: Pt tachypneic, 24RR, shallow respirations utilizing accessory muscle use. Notified Dr Alarcon. Order to start BiPap2. [facility] or ICU. Addendum: 09/04/20 at 1240 by Chelly Rosario RN RN Called RT to start Pt on BiPap. awaiting RT. pt is 89*-90% at this time. Addendum: 09/04/20 at 1253 by Chelly Rosario RN RN awaiting room in [facility], order entered per Dr Alarcon via telephone. BIPAP started on 23/01. Addendum: 09/04/20 at 1308 by Chelly Rosario RN RN Amend: BiPap not started d/t no HEPA filter. awaiting filter. Pt is 92 on NRB. Addendum: 09/04/20 at 1512 by Chelly Rosario RN RN HEPA filter in room, RT to come start BIPAP
--- NOTE | 2020-09-04 14:55 | Cardiac Electrophysiology PN ---
Assessment/Plan Assessment/Plan 1. COVID-19 pneumonia. S/P Remdesevir and dexamethasone On apixaban 5 bid, iv Abx and 15 liter NRB FM 2. Hypertension. Stable off antihypertensive agents. 3. Diabetes. 4. History of CVA with hemiparesis. 5. Benign prostatic hypertrophy. 6. Neno with HR high 40s, likely due to Covid. Asymptomatic 7. Right pleural effusion. Thoracentesis yesterday not done as not enough fluid 8. CP. Pleuritic. No AR. ECG unchanged DW RN Subjective Subjective On 15 liter NRBFM in Covid isolation. In SR. Thoracentesis not done as not enough fluid Platelet count is 121 on Eliquis Had pleuritic CP but troponin was negative. Comfortable now Objective Last 24 Hour Vital Signs Date Time Temp Pulse Resp B/P (MAP) Pulse Ox O2 Delivery O2 Flow Rate FiO2 09/04/20 12:00 97.7 97 23 120/62 (81) 94 09/04/20 12:00 97 09/04/20 09:00 Non-Rebreather 15.0 09/04/20 08:00 107 09/04/20 08:00 96.7 107 25 140/62 (88) 97 09/04/20 07:00 95 Non-Rebreather 15.0 100 09/04/20 04:00 97.9 104 22 136/72 (93) 94 09/04/20 04:00 104 09/04/20 00:00 105 09/04/20 00:00 99.0 105 24 142/73 (96) 95 09/03/20 21:00 Non-Rebreather 15.0 09/03/20 20:00 99.7 102 24 146/62 (90) 93 09/03/20 20:00 98 09/03/20 19:30 94 Non-Rebreather 15.0 100 09/03/20 16:00 97.5 98 22 140/66 (90) 95 09/03/20 16:00 100 Intake and Output 09/03/20 09/04/20 19:00 07:00 Intake Total 800 ml 480 ml Output Total 600 ml 800 ml Balance 200 ml -320 ml Intake Oral 800 ml 480 ml Output Urine Total 600 ml 800 ml # Bowel Movements 2 Laboratory Tests Test 09/03/20 16:45 09/04/20 04:00 09/04/20 10:57 POC Whole Blood Glucose 112 MG/DL (74-106) H 164 MG/DL (74-106) H Sodium Level 141 MMOL/L (136-145) Potassium Level 4.9 MMOL/L (3.5-5.1) Chloride Level 107 MMOL/L (98-107) Carbon Dioxide Level 29 MMOL/L (21-32) Anion Gap 5 mmol/L (5-15) Blood Urea Nitrogen 19 mg/dL (7-18) H Creatinine 1.0 MG/DL (0.55-1.30) Estimat Glomerular Filtration Rate > 60 mL/min (>60) Glucose Level 114 MG/DL (74-106) H Calcium Level 8.6 MG/DL (8.5-10.1) Troponin I 0.014 ng/mL (0.000-0.056) Objective HEAD AND NECK: No JVD.On NRB FM LUNGS: Coarse rhonchi. CARDIOVASCULAR: Regular S1 and S2 with no gallop or murmur. ABDOMEN: Soft. EXTREMITIES: No pitting edema. Sabino Goncalves MD Sep 04, 2020 14:55
--- NOTE | 2020-09-04 15:12 | NUR ---
NURSE NOTES: Pt has been refusing BIPAP. risks and benefits explained. Pt education provided. Addendum: 09/04/20 at 1513 by Chelly Rosario RN RN Pt refuses.
--- NOTE | 2020-09-04 15:14 | Nephrology Progress Note ---
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 Renal parameters are stable. On nonrebreather mask. Continue per consultants. September 03: Labs reviewed. Renal parameters stable. Continue per consultants September 02: Labs reviewed. On nonrebreather mask. Low phosphorus noted and addressed. September 01: No labs drawn today. Remains on nonrebreather mask. Will order lab tomorrow. Continue to monitor renal parameters and electrolytes. Continue per consultants. August 31: Labs reviewed. Remains on Venturi mask. Full code. Continue to monitor renal parameters. August 30: No CHEM panel drawn today. Remains full code. On nonrebreather mask. Continue to monitor renal parameters. August 29: Labs reviewed. Abnormal electrolyte addressed. Continue per consultants. August 28: Labs reviewed. Magnesium and phosphorus replacement ordered. Continue per consultants. August 27: No labs drawn today. Continue per consultants. Will check lab in a.m. August 26: White blood cells 14.9. Renal parameters stable. Continue per consultants. August 25: [place] [id number]. Renal parameters stable. August 24: Status quo. No labs drawn today. Will check lab tomorrow. August 23: Status quo. Labs reviewed. Renal parameters are stable. Continue per consultants. August 22: Status quo. Stable renal parameters. Continue per consultants. August 21: Labs were reviewed. Renal parameters are stable. Continue per consultants. August 20: Labs reviewed. Creatinine now normalized. Electrolytes within normal limit. Continue per consultants. Antibiotics Slow hydrate with normal saline Monitor renal parameters Keep the blood pressure blood sugar in check Per orders Subjective ROS Limited/Unobtainable: Yes Objective Objective Last 24 Hour Vital Signs Date Time Temp Pulse Resp B/P (MAP) Pulse Ox O2 Delivery O2 Flow Rate FiO2 09/04/20 12:00 97.7 97 23 120/62 (81) 94 09/04/20 12:00 97 09/04/20 09:00 Non-Rebreather 15.0 09/04/20 08:00 107 09/04/20 08:00 96.7 107 25 140/62 (88) 97 09/04/20 07:00 95 Non-Rebreather 15.0 100 09/04/20 04:00 97.9 104 22 136/72 (93) 94 09/04/20 04:00 104 09/04/20 00:00 105 09/04/20 00:00 99.0 105 24 142/73 (96) 95 09/03/20 21:00 Non-Rebreather 15.0 09/03/20 20:00 99.7 102 24 146/62 (90) 93 09/03/20 20:00 98 09/03/20 19:30 94 Non-Rebreather 15.0 100 09/03/20 16:00 97.5 98 22 140/66 (90) 95 09/03/20 16:00 100 Intake and Output 09/03/20 09/04/20 19:00 07:00 Intake Total 800 ml 480 ml Output Total 600 ml 800 ml Balance 200 ml -320 ml Intake Oral 800 ml 480 ml Output Urine Total 600 ml 800 ml # Bowel Movements 2 Laboratory Tests 09/03/20 16:45: POC Whole Blood Glucose 112H 09/04/20 04:00: Sodium Level 141, Potassium Level 4.9, Chloride Level 107, Carbon Dioxide Level 29, Anion Gap 5, Blood Urea Nitrogen 19H, Creatinine 1.0, Estimat Glomerular Filtration Rate > 60, Glucose Level 114H, Calcium Level 8.6, Troponin I 0.014 09/04/20 10:57: POC Whole Blood Glucose 164H Height (Feet): 5 Height (Inches): 8.00 Weight (Pounds): 163 General Appearance: no apparent distress EENT: other - On nonrebreather mask Cardiovascular: tachycardia Respiratory/Chest: decreased breath sounds Abdomen: distended Objective No change Devonte Zuniga MD Sep 04, 2020 15:13
--- NOTE | 2020-09-04 15:21 | NUR ---
RESPIRATORY NOTES Attempted to place PT on bipap, per MD order. PT placed on bipap, but quickly demanded it be taken off. PT was asked to give it a chance, but denied. PT placed back onto NRB 100%. SaO2 - 89%. BRYAN Spaulding aware, as well as SCOTT Da Silva. Will continue to monitor.
--- NOTE | 2020-09-04 15:23 | NUR ---
NURSE NOTES: RT bedside to try bipap on Pt. Pt refusing, risks and benefits explained thoroughly. Pt AOx4 and refuses Bipap. Md hinson notified. Pt is to remain on tele, transfer to SDU cancelled as Pt is refusing bipap/cont bipap. 90% spo2 on 15LPM NC tachypnea, 25 RR, shallow breathing.
[2020-09-04 16:00] VITALS: BP 107/61
--- NOTE | 2020-09-04 17:38 | NUR ---
NURSE HAND-OFF REPORT: Important Events on Shift: Pt tachypnea, labored breathing, using accessory muscles, refused bipap// transfer to SDU cancelled d/t bipap refusal Patient Status: fc, stable Diet: regular Pending Orders: Pending Results/Labs: Pending MD notification: md hinson aware pt refuse bipap Latest Vital Signs: Temperature 96.8 , Pulse 105 , B/P 107 /61 , Respiratory Rate 22 , O2 SAT 94 , Nasal Cannula, O2 Flow Rate 15.0 . Vital Sign Comment: EKG Rhythm: Sinus Tachycardia Rhythm change?: N Notified?: N -Dr. Sacha GLASS Response: No New Orders Received Latest Wong Fall Score: 55 Fall Risk: High Risk Safety Measures: Call light Within Reach, Bed Alarm Zone 1, Side Rails Side Rails x3, Bed position Low and Locked. Fall Precautions: Yellow Socks Yellow Gown Door Sign Patient Fall Education Report to be given. Addendum: 09/04/20 at 1931 by Chelly Rosario RN RN Plan of care and report endorsed to BRYAN patino. Pt is stable, unlabored and even breathing 97% on 15LPM NRB. pt has no s.s or complaint of distress at this time.
--- NOTE | 2020-09-04 18:15 | NUR ---
NURSE NOTES: Pt changed at this time. Pt skin is red on backside, inner thighs, R lateral rib and sacral reddness. Moisture barrier cream applied w/ optifoam. optifoam preventative on heels. pt repositioned facing R. R arm elevated to prevent more R rib reddness. B lower extremities elevated. B heels off loaded. Pt condom catheter changed at this time. Pt void x1, BM x1. Pt bed low and locked, call light inreach, bed alarm on and Pt verbalized understanding to call for help. Pt personal belongings on overhead bed and within reach. Pt oxygenation 94-97% spo2 at this time after being turned while being change. pt may benefit from prone position.
--- NOTE | 2020-09-04 19:05 | NUR ---
NURSE NOTES: Report received from Chelly ADAMS. Patient on NR 15 LPM O2 sat at 92%. Flushed appearance, Denies pain able to make needs known. Previous nurse stated that patient refused continuous bipap and transfer to SDU because patient continued to have labored breathing with NR mask at 15LPM. Nurse Chelly stated Dr. Alarcon is aware. Call light is in reach. Bed at lowest position locked with side rails up. Will continue plan of care.
[2020-09-04 20:00] VITALS: BP 121/61
--- NOTE | 2020-09-04 21:54 | General Progress Note ---
Subjective ROS Limited/Unobtainable: Yes Allergies: Coded Allergies: No Known Allergies (Unverified , 01/04/19) Objective Last 24 Hour Vital Signs Date Time Temp Pulse Resp B/P (MAP) Pulse Ox O2 Delivery O2 Flow Rate FiO2 09/04/20 19:17 94 Non-Rebreather 15.0 100 09/04/20 16:00 105 09/04/20 16:00 96.8 87 22 107/61 (76) 94 09/04/20 12:00 97.7 97 23 120/62 (81) 94 09/04/20 12:00 97 09/04/20 09:00 Non-Rebreather 15.0 09/04/20 08:00 107 09/04/20 08:00 96.7 107 25 140/62 (88) 97 09/04/20 07:00 95 Non-Rebreather 15.0 100 09/04/20 04:00 97.9 104 22 136/72 (93) 94 09/04/20 04:00 104 09/04/20 00:00 105 09/04/20 00:00 99.0 105 24 142/73 (96) 95 Intake and Output 09/03/20 09/04/20 19:00 07:00 Intake Total 800 ml 480 ml Output Total 600 ml 800 ml Balance 200 ml -320 ml Intake Oral 800 ml 480 ml Output Urine Total 600 ml 800 ml # Bowel Movements 2 Laboratory Tests 09/04/20 04:00: Sodium Level 141, Potassium Level 4.9, Chloride Level 107, Carbon Dioxide Level 29, Anion Gap 5, Blood Urea Nitrogen 19H, Creatinine 1.0, Estimat Glomerular Filtration Rate > 60, Glucose Level 114H, Calcium Level 8.6, Troponin I 0.014 09/04/20 10:57: POC Whole Blood Glucose 164H 09/04/20 21:10: POC Whole Blood Glucose 149H Height (Feet): 5 Height (Inches): 8.00 Weight (Pounds): 163 Assessment/Plan Problem List: (1) Renal failure (ARF), acute on chronic ICD Codes: N17.9 - Acute kidney failure, unspecified; N18.9 - Chronic kidney disease, unspecified SNOMED: 955049637 (2) Diabetes mellitus ICD Codes: E11.9 - Type 2 diabetes mellitus without complications SNOMED: 21570339 (3) Sepsis due to urinary tract infection ICD Codes: A41.9 - Sepsis, unspecified organism; N39.0 - Urinary tract infection, site not specified SNOMED: 918690852 (4) Episode of generalized weakness ICD Codes: R53.1 - Weakness SNOMED: 82944910 (5) Renal failure (ARF), acute on chronic ICD Codes: N17.9 - Acute kidney failure, unspecified; N18.9 - Chronic kidney disease, unspecified SNOMED: 299441006 (6) CVA, old, hemiparesis ICD Codes: I69.359 - Hemiplegia and hemiparesis following cerebral infarction affecting unspecified side SNOMED: 985643681 (7) Hypoxia ICD Codes: R09.02 - Hypoxemia SNOMED: 852451691 (8) 2019 novel coronavirus detected ICD Codes: U07.1 - COVID-19 SNOMED: 9979523686326025 (9) BPH (benign prostatic hyperplasia) ICD Codes: N40.0 - Benign prostatic hyperplasia without lower urinary tract symptoms SNOMED: 181950593 Status: progressing, unchanged Assessment/Plan: covid positive azotemia reviewed chart no change no fever Jose David Headley MD Sep 04, 2020 21:54
[2020-09-05] VITALS: BP 131/61
--- NOTE | 2020-09-05 01:00 | Consultation ---
DATE OF CONSULTATION: 09/04/2020 PAIN MANAGEMENT CONSULTATION CONSULTING PHYSICIAN: Cuba Henao M.D. REFERRING PHYSICIAN: Chris Tipton D.O. PHYSICIAN [employer] MIN[employer]: Nicolas Tsai CHIEF COMPLAINT: Generalized body pain. HISTORY OF PRESENT ILLNESS: This is an 85-year-old male who is being seen on the telemetry floor of [facility] for initial pain management consultation. Patient is in bed, no signs of any distress. Discussed with nurse at bedside. Reports patient has been having some chest pain due to COVID-19 positivity and pneumonia; however, patient is not complaining of any pain at this time. He is on Tylenol as needed. We were consulted so patient would have adequate pain control here in the hospital. PAST MEDICAL HISTORY: CVA, acute renal failure, BPH, hypertension, anemia, hyperlipidemia, GERD, and depression. PAST SURGICAL HISTORY: Unknown. SOCIAL HISTORY: No history of smoking tobacco, drinking alcohol, and IV drug abuse. ALLERGIES: No known drug allergies. MEDICATIONS: Patient is on Eliquis, aspirin, cranberry, artificial tears, Colace, Proscar, NovoLog, milk of magnesia, pantoprazole, Tylenol, clonidine, Valium REVIEW OF SYSTEMS: Unable to obtain given patient's status. PHYSICAL EXAMINATION: GENERAL: Alert, awake. VITAL SIGNS: Blood pressure 140/62, heart rate is 107, oxygen saturation 97%, respirations 18, temperature is 97 degrees Fahrenheit. LUNGS: Decreased breath sounds bilaterally. HEART: S1 and S2 regular. ABDOMEN: Soft, nontender. BACK: Range of motion is decreased in flexion and extension. EXTREMITIES: Upper and lower extremity range of motion is decreased due to patient's condition. No cyanosis. No clubbing. Sensory is reduced. Reflexes are not obtainable. No adenopathy. ASSESSMENT AND PLAN: This is an 85-year-old male with degenerative joint disease, COVID-19 positive. The patient will be continued on Tylenol as needed. The patient was discussed with Dr. Henao, and Dr. Henao concurred. We will follow the patient. Thank you very much for the courtesy of this consultation. Cuba Henao M.D. BRISA Tsai DR: WILLI JOB#: [id number] CC: LITO
[2020-09-05 04:00] VITALS: BP 126/64
[2020-09-05] MEDS: NovoLOG Insulin Flexpen SUBQ SCH ×4 (06:30→20:47)
--- NOTE | 2020-09-05 07:23 | NUR ---
NURSE HAND-OFF REPORT: Important Events on Shift: Patient Status: Patient continues on non rebreather mask 15 LPM. O2 sat jumps from 88 to 95%. 88% when being changed and repositioned but then stabalized above 90%, no complaints of chest pain. Diet: Cardiac Finely chopped 1:1 feeder Pending Orders: [] Pending Results/Labs:[] Pending MD notification:[] Latest Vital Signs: Temperature 98.0 , Pulse 106 , B/P 126 /64 , Respiratory Rate 23 , O2 SAT 92 , Nasal Cannula, O2 Flow Rate 15.0 . Vital Sign Comment: [] EKG Rhythm: ST w/ BBB Rhythm change?: N MD Notified?: N -Dr. Sacha GLASS Response: No New Orders Received Latest Wong Fall Score: 55 Fall Risk: High Risk Safety Measures: Call light Within Reach, Bed Alarm Zone 1, Side Rails Side Rails x3, Bed position Low and Locked. Fall Precautions: Yellow Socks Yellow Gown Door Sign Patient Fall Education Report given to Mae ADAMS.
--- NOTE | 2020-09-05 07:34 | NUR ---
NURSE NOTES: Report received from Lori ADAMS. Patient seen on rounds, awake and up in bed, on O2 via NRM at 15lpm, nurse reports patient refused continuous BIPAP and transfer to SDU, sats currently >92%, pt appears comfortable on mask with no signs of acute distress. No complaints of pain. PIV on right forearm patent and intact. Condom catheter secure and draining. Bed low and locked, siderails up x2, call light placed within reach and instructed to call nurse for assistance. Will continue to monitor.
[2020-09-05 07:55] LABS: HEMOGLOBIN 12.8 G/DL (14.2-18.0); MEAN CORPUSCULAR VOLUME 89 FL (80-99); PLATELET COUNT 152 K/UL (150-450); RED BLOOD COUNT 4.81 M/UL (4.70-6.10); RED CELL DISTRIBUTION WIDTH 14.4 % (11.6-14.8); WHITE BLOOD COUNT 16.2 K/UL (4.8-10.8)
[2020-09-05 08:00] VITALS: BP 135/67
[2020-09-05 08:03] LABS: ALANINE AMINOTRANSFERASE 12 U/L (12-78); ALBUMIN 1.8 G/DL (3.4-5.0); ALBUMIN/GLOBULIN RATIO 0.4 (1.0-2.7); ALKALINE PHOSPHATASE 75 U/L (46-116); ANION GAP 5 mmol/L (5-15); ASPARTATE AMINO TRANSFERASE 16 U/L (15-37); BILIRUBIN,TOTAL 0.8 MG/DL (0.2-1.0); BLOOD UREA NITROGEN 19 mg/dL (7-18); CALCIUM 9.1 MG/DL (8.5-10.1); CARBON DIOXIDE 32 MMOL/L (21-32); CHLORIDE 106 MMOL/L (98-107); POTASSIUM 4.6 MMOL/L (3.5-5.1); SODIUM 143 MMOL/L (136-145)
[2020-09-05 08:34] LABS: PHOSPHORUS 2.3 MG/DL (2.5-4.9)
--- NOTE | 2020-09-05 08:35 | Infectious Diseases Prog Note ---
Assessment/Plan 84yo M with: Afebrile Normal WBC Lymphopenia COVID pneumonia, severe Acute hypoxic resp failure 2/2 COVID pna UTI/cystitis 08/17 BCx NTD UCx +ESBL E.coli CXR: No significant change in tortuosity/ectasia of the thoracic aorta. Negative for cardiac enlargement. Negative for focal consolidation, pneumothorax or pleural fluid collections. COVID rapid test positive, PCR positive 08/22 CXR: New or markedly worsened bilateral infiltrates, since prior exam of 5 days earlier 08/28 CXR: Worsening bilateral infiltrates, versus edema, bilaterally 08/29 CXR: Right pleural effusion and infiltrates, unchanged. Improving left basilar atelectasis and infiltrate 09/02 CXR: Increasing bilateral infiltrates. Cr 1.8, improving 08/19 Renal US: Negative for hydronephrosis. 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 Bilateral renal cysts, large on the right. Plan: Cont to monitor off abx CXR given some chest pain w/ breathing Prone / lay on side if able, d/w RN Recommend diuresis, BNP >7000k Trend WBC 09/04 SP Zosyn #7 08/27 SP dex #10 08/24 SP RDV #5, ertapenem #5 for UTI 08/23 SP Azithro #5 Convalescent plasma unfortunately not available at this institution so unable to give, additionally unclear if it improves mortality/outcomes or not Monitor CBC/CMP Monitor temp curve, hemodynamics Monitor resp status D/w RN Thank you for this consult. [facility] will continue to follow. Subjective Allergies: Coded Allergies: No Known Allergies (Unverified , 01/04/19) AF NAD on 15L NRB satting 92% WBC 16, overall stable Feeling the same refusing PT and moving to [place] Objective Last 24 Hour Vital Signs Date Time Temp Pulse Resp B/P (MAP) Pulse Ox O2 Delivery O2 Flow Rate FiO2 09/05/20 04:00 106 09/05/20 04:00 98.0 102 23 126/64 (84) 92 09/05/20 00:00 98.2 109 24 131/61 (84) 94 09/05/20 00:00 103 09/04/20 21:00 Non-Rebreather 15.0 09/04/20 20:00 99.0 103 23 121/61 (81) 94 09/04/20 20:00 121 12/30/20 19:17 94 Non-Rebreather 15.0 100 09/04/20 16:00 105 09/04/20 16:00 96.8 87 22 107/61 (76) 94 09/04/20 12:00 97.7 97 23 120/62 (81) 94 09/04/20 12:00 97 09/04/20 09:00 Non-Rebreather 15.0 Height (Feet): 5 Height (Inches): 8.00 Weight (Pounds): 163 Gen: NAD HEENT: NCAT Pulm: BL chest rise Abd: Non-distended Ext: No c/c/e Skin: No visible rashes Neuro: Awake, interactive Laboratory Tests Test 09/04/20 10:57 09/04/20 21:10 09/05/20 05:35 POC Whole Blood Glucose 164 MG/DL (74-106) H 149 MG/DL (74-106) H White Blood Count 16.2 K/UL (4.8-10.8) H Red Blood Count 4.81 M/UL (4.70-6.10) Hemoglobin 12.8 G/DL (14.2-18.0) L Hematocrit 43.0 % (42.0-52.0) Mean Corpuscular Volume 89 FL (80-99) Mean Corpuscular Hemoglobin 26.6 PG (27.0-31.0) L Mean Corpuscular Hemoglobin Concent 29.8 G/DL (32.0-36.0) L Red Cell Distribution Width 14.4 % (11.6-14.8) Platelet Count 152 K/UL (150-450) Mean Platelet Volume 8.3 FL (6.5-10.1) Neutrophils (%) (Auto) % (45.0-75.0) Lymphocytes (%) (Auto) % (20.0-45.0) Monocytes (%) (Auto) % (1.0-10.0) Eosinophils (%) (Auto) % (0.0-3.0) Basophils (%) (Auto) % (0.0-2.0) Neutrophils % (Manual) Pending Lymphocytes % (Manual) Pending Platelet Estimate Pending Platelet Morphology Pending Sodium Level 143 MMOL/L (136-145) Potassium Level 4.6 MMOL/L (3.5-5.1) Chloride Level 106 MMOL/L (98-107) Carbon Dioxide Level 32 MMOL/L (21-32) Anion Gap 5 mmol/L (5-15) Blood Urea Nitrogen 19 mg/dL (7-18) H Creatinine 1.0 MG/DL (0.55-1.30) Estimat Glomerular Filtration Rate > 60 mL/min (>60) Glucose Level 127 MG/DL (74-106) H Calcium Level 9.1 MG/DL (8.5-10.1) Phosphorus Level 2.3 MG/DL (2.5-4.9) L Magnesium Level 2.0 MG/DL (1.8-2.4) Total Bilirubin 0.8 MG/DL (0.2-1.0) Aspartate Amino Transf (AST/SGOT) 16 U/L (15-37) Alanine Aminotransferase (ALT/SGPT) 12 U/L (12-78) Alkaline Phosphatase 75 U/L (46-116) Total Protein 6.5 G/DL (6.4-8.2) Albumin 1.8 G/DL (3.4-5.0) L Globulin 4.7 g/dL Albumin/Globulin Ratio 0.4 (1.0-2.7) L Current Medications Medications (Trade) Dose Ordered Sig/Amaya Route PRN Reason Start Time Stop Time Status Last Admin Dose Admin Acetaminophen (Tylenol) 650 mg Q4H PRN ORAL Mild Pain (Pain Scale 1-3) 09/04/20 10:00 10/04/20 09:59 Acetaminophen (Tylenol) 650 mg Q4H PRN ORAL Temp >100.5 09/04/20 10:00 10/04/20 09:59 Albuterol/ Ipratropium (Combivent Respimat) 1 puff Q4H PRN INH Shortness of Breath 08/18/20 13:00 09/17/20 12:59 09/04/20 13:23 Apixaban (Eliquis) 5 mg BID ORAL 08/18/20 18:00 11/16/20 17:59 09/04/20 17:10 Dextrose (Dextrose 50%) 25 ml Q30M PRN IV Hypoglycemia 08/18/20 11:45 11/16/20 11:44 Dextrose (Dextrose 50%) 50 ml Q30M PRN IV Hypoglycemia 08/18/20 11:45 11/16/20 11:44 Insulin Aspart (NovoLOG) BEFORE MEALS AND HS SUBQ 08/18/20 16:30 11/16/20 16:29 09/04/20 21:13 Nitroglycerin (Ntg) 0.4 mg Q5M PRN SL Prn Chest Pain 09/04/20 06:45 10/04/20 06:44 Ondansetron HCl (Zofran) 4 mg Q6H PRN IVP Nausea & Vomiting 08/17/20 19:45 09/16/20 19:44 Pantoprazole (Protonix) 40 mg DAILY ORAL 08/18/20 09:00 09/17/20 08:59 09/04/20 08:07 Polyethylene Glycol (Miralax) 17 gm DAILYPRN PRN ORAL Constipation 08/17/20 19:45 09/16/20 19:44 08/19/20 17:56 Potassium Chloride (K-Dur) 20 meq DAILY ORAL 08/29/20 12:45 11/27/20 12:44 09/04/20 08:08 Promethazine HCl/ Codeine (Phenergan with Codeine) 5 ml Q6H PRN ORAL cough 08/17/20 19:45 09/16/20 19:44 09/04/20 11:40 Tamsulosin HCl (Flomax) 0.4 mg BID ORAL 08/18/20 09:00 09/17/20 08:59 09/04/20 17:10 Aneta Nguyen M.D. Sep 05, 2020 08:35
[2020-09-05] MEDS: Tamsulosin 0.4mg cap ORAL SCH ×2 (08:43→18:06)
[2020-09-05] MEDS: Eliquis 5mg tablet ORAL SCH ×2 (08:43→18:06)
--- NOTE | 2020-09-05 11:18 | Pulmonology Progress Note ---
Subjective ROS Limited/Unobtainable: Yes HEENT: Repors: no symptoms Respiratory: Reports: no symptoms Allergies: Coded Allergies: No Known Allergies (Unverified , 01/04/19) Objective Last 24 Hour Vital Signs Date Time Temp Pulse Resp B/P (MAP) Pulse Ox O2 Delivery O2 Flow Rate FiO2 09/05/20 09:00 Non-Rebreather 15.0 09/05/20 08:00 117 09/05/20 08:00 97.9 114 22 135/67 (89) 94 09/05/20 04:00 106 09/05/20 04:00 98.0 102 23 126/64 (84) 92 09/05/20 00:00 98.2 109 24 131/61 (84) 94 09/05/20 00:00 103 09/04/20 21:00 Non-Rebreather 15.0 09/04/20 20:00 99.0 103 23 121/61 (81) 94 09/04/20 20:00 121 09/04/20 19:17 94 Non-Rebreather 15.0 100 09/04/20 16:00 105 09/04/20 16:00 96.8 87 22 107/61 (76) 94 09/04/20 12:00 97.7 97 23 120/62 (81) 94 09/04/20 12:00 97 Intake and Output 09/04/20 09/05/20 19:00 07:00 Intake Total 800 ml 300 ml Output Total 600 ml Balance 200 ml 300 ml Intake Oral 800 ml 300 ml Output Urine Total 600 ml # Voids 2 # Bowel Movements 1 2 General Appearance: WD/WN HEENT: normocephalic, atraumatic, other - O2 Respiratory: chest wall non-tender, rhonchi - bilaterally - scattered Cardiovascular: normal peripheral pulses, normal rate, regular rhythm Abdomen: normal bowel sounds, soft, non tender Genitourinary: normal external genitalia Extremities: no clubbing Neurologic: alert, responsive, other - R side paresis Lymphatic: no neck adenopathy Musculoskeletal: atrophy - BLE Laboratory Tests 09/04/20 21:10: POC Whole Blood Glucose 149H 09/05/20 05:35: White Blood Count 16.2H, Red Blood Count 4.81, Hemoglobin 12.8L, Hematocrit 43.0, Mean Corpuscular Volume 89, Mean Corpuscular Hemoglobin 26.6L, Mean Corpuscular Hemoglobin Concent 29.8L, Red Cell Distribution Width 14.4, Platelet Count 152, Mean Platelet Volume 8.3, Neutrophils (%) (Auto) , Lymphocytes (%) (Auto) , Monocytes (%) (Auto) , Eosinophils (%) (Auto) , Basophils (%) (Auto) , Neutrophils % (Manual) [Pending], Lymphocytes % (Manual) [Pending], Platelet Estimate [Pending], Platelet Morphology [Pending], Sodium Level 143, Potassium Level 4.6, Chloride Level 106, Carbon Dioxide Level 32, Anion Gap 5, Blood Urea Nitrogen 19H, Creatinine 1.0, Estimat Glomerular Filtration Rate > 60, Glucose Level 127H, Calcium Level 9.1, Phosphorus Level 2.3L, Magnesium Level 2.0, Total Bilirubin 0.8, Aspartate Amino Transf (AST/SGOT) 16, Alanine Aminotransferase (ALT/SGPT) 12, Alkaline Phosphatase 75, Total Protein 6.5, Albumin 1.8L, Globulin 4.7, Albumin/Globulin Ratio 0.4L 09/05/20 10:58: POC Whole Blood Glucose [Pending] Current Medications Medications (Trade) Dose Ordered Sig/Amaya Route PRN Reason Start Time Stop Time Status Last Admin Dose Admin Acetaminophen (Tylenol) 650 mg Q4H PRN ORAL Mild Pain (Pain Scale 1-3) 09/04/20 10:00 10/04/20 09:59 Acetaminophen (Tylenol) 650 mg Q4H PRN ORAL Temp >100.5 09/04/20 10:00 10/04/20 09:59 Albuterol/ Ipratropium (Combivent Respimat) 1 puff Q4H PRN INH Shortness of Breath 08/18/20 13:00 09/17/20 12:59 09/04/20 13:23 Apixaban (Eliquis) 5 mg BID ORAL 08/18/20 18:00 11/16/20 17:59 09/05/20 08:43 Dextrose (Dextrose 50%) 25 ml Q30M PRN IV Hypoglycemia 08/18/20 11:45 11/16/20 11:44 Dextrose (Dextrose 50%) 50 ml Q30M PRN IV Hypoglycemia 08/18/20 11:45 11/16/20 11:44 Insulin Aspart (NovoLOG) BEFORE MEALS AND HS SUBQ 08/18/20 16:30 11/16/20 16:29 09/04/20 21:13 Nitroglycerin (Ntg) 0.4 mg Q5M PRN SL Prn Chest Pain 09/04/20 06:45 10/04/20 06:44 Ondansetron HCl (Zofran) 4 mg Q6H PRN IVP Nausea & Vomiting 08/17/20 19:45 09/16/20 19:44 Pantoprazole (Protonix) 40 mg DAILY ORAL 08/18/20 09:00 09/17/20 08:59 09/05/20 08:43 Polyethylene Glycol (Miralax) 17 gm DAILYPRN PRN ORAL Constipation 08/17/20 19:45 09/16/20 19:44 08/19/20 17:56 Potassium Chloride (K-Dur) 20 meq DAILY ORAL 08/29/20 12:45 11/27/20 12:44 09/05/20 08:43 Promethazine HCl/ Codeine (Phenergan with Codeine) 5 ml Q6H PRN ORAL cough 08/17/20 19:45 09/16/20 19:44 09/04/20 11:40 Tamsulosin HCl (Flomax) 0.4 mg BID ORAL 08/18/20 09:00 09/17/20 08:59 09/05/20 08:43 Assessment/Plan Problems: (1) Nosocomial pneumonia (2) Hypoxia (3) 2019 novel coronavirus detected (4) CVA, old, hemiparesis (5) Hypertension (6) Diabetes mellitus (7) BPH (benign prostatic hyperplasia) Assessment/Plan slightly better afebrile no new complains respiratory isolation off steroids and Remdesevir titrate fio2 to sat of 92% check inflammatory markers sliding scale diabetic diet 08/26 Suspect slight worsening of right lung infiltrates. 08/28 cxr: Worsening bilateral infiltrates, versus edema, bilaterally 08/29: Right pleural effusion and infiltrates, unchanged 12:28: US of right chest: no fluid Angelita lAarcon MD Sep 05, 2020 11:18
--- NOTE | 2020-09-05 11:21 | General Progress Note ---
Subjective Date patient seen: Sep 05, 2020 Time patient seen: 10:40 - am Allergies: Coded Allergies: No Known Allergies (Unverified , 01/04/19) Subjective HISTORY OF PRESENT ILLNESS: This is an 85-year-old male who is being seen on the telemetry floor of [facility]. In bed and showing no signs of pain. REVIEW OF SYSTEMS: Unable to obtain given patient's status. Objective Last 24 Hour Vital Signs Date Time Temp Pulse Resp B/P (MAP) Pulse Ox O2 Delivery O2 Flow Rate FiO2 09/05/20 09:00 Non-Rebreather 15.0 09/05/20 08:00 117 09/05/20 08:00 97.9 114 22 135/67 (89) 94 09/05/20 04:00 106 09/05/20 04:00 98.0 102 23 126/64 (84) 92 09/05/20 00:00 98.2 109 24 131/61 (84) 94 09/05/20 00:00 103 09/04/20 21:00 Non-Rebreather 15.0 09/04/20 20:00 99.0 103 23 121/61 (81) 94 09/04/20 20:00 121 09/04/20 19:17 94 Non-Rebreather 15.0 100 09/04/20 16:00 105 09/04/20 16:00 96.8 87 22 107/61 (76) 94 09/04/20 12:00 97.7 97 23 120/62 (81) 94 09/04/20 12:00 97 Intake and Output 09/04/20 09/05/20 19:00 07:00 Intake Total 800 ml 300 ml Output Total 600 ml Balance 200 ml 300 ml Intake Oral 800 ml 300 ml Output Urine Total 600 ml # Voids 2 # Bowel Movements 1 2 Laboratory Tests 09/04/20 21:10: POC Whole Blood Glucose 149H 09/05/20 05:35: White Blood Count 16.2H, Red Blood Count 4.81, Hemoglobin 12.8L, Hematocrit 43.0, Mean Corpuscular Volume 89, Mean Corpuscular Hemoglobin 26.6L, Mean Corpuscular Hemoglobin Concent 29.8L, Red Cell Distribution Width 14.4, Platelet Count 152, Mean Platelet Volume 8.3, Neutrophils (%) (Auto) , Lymphocytes (%) (Auto) , Monocytes (%) (Auto) , Eosinophils (%) (Auto) , Basophils (%) (Auto) , Neutrophils % (Manual) [Pending], Lymphocytes % (Manual) [Pending], Platelet Estimate [Pending], Platelet Morphology [Pending], Sodium Level 143, Potassium Level 4.6, Chloride Level 106, Carbon Dioxide Level 32, Anion Gap 5, Blood Urea Nitrogen 19H, Creatinine 1.0, Estimat Glomerular Filtration Rate > 60, Glucose Level 127H, Calcium Level 9.1, Phosphorus Level 2.3L, Magnesium Level 2.0, Total Bilirubin 0.8, Aspartate Amino Transf (AST/SGOT) 16, Alanine Aminotransferase (ALT/SGPT) 12, Alkaline Phosphatase 75, Total Protein 6.5, Albumin 1.8L, Globulin 4.7, Albumin/Globulin Ratio 0.4L 09/05/20 10:58: POC Whole Blood Glucose [Pending] Height (Feet): 5 Height (Inches): 8.00 Weight (Pounds): 163 Objective PHYSICAL EXAMINATION: GENERAL: Alert, awake. LUNGS: Decreased breath sounds bilaterally. HEART: S1 and S2 regular. ABDOMEN: Soft, nontender. EXTREMITIES: No cyanosis. No clubbing. NEURO: No changes. Assessment/Plan Status: unchanged Assessment/Plan: (1) DJD (2) Covid 19+ Patient to be continued on Tylenol D/w Dr. Henao and he concurred Vidal Gaona Sep 05, 2020 11:21
[2020-09-05 12:00] VITALS: BP 129/65
--- NOTE | 2020-09-05 12:05 | Nephrology Progress Note ---
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 Renal parameters stable. White blood cell 16.2. Remains on nonrebreather mask. Full code. Per consultants. September 04: Labs reviewed. Renal parameters are stable. On nonrebreather mask. Continue per consultants. September 03: Labs reviewed. Renal parameters stable. Continue per consultants September 02: Labs reviewed. On nonrebreather mask. Low phosphorus noted and addressed. September 01: No labs drawn today. Remains on nonrebreather mask. Will order lab tomorrow. Continue to monitor renal parameters and electrolytes. Continue per consultants. August 31: Labs reviewed. Remains on Venturi mask. Full code. Continue to monitor renal parameters. August 30: No CHEM panel drawn today. Remains full code. On nonrebreather mask. Continue to monitor renal parameters. August 29: Labs reviewed. Abnormal electrolyte addressed. Continue per consultants. August 28: Labs reviewed. Magnesium and phosphorus replacement ordered. Continue per consultants. August 27: No labs drawn today. Continue per consultants. Will check lab in a.m. August 26: White blood cells 14.9. Renal parameters stable. Continue per consultants. August 25: Labs are reviewed.WBCs over 19096. Renal parameters stable. August 24: Status quo. No labs drawn today. Will check lab tomorrow. August 23: Status quo. Labs reviewed. Renal parameters are stable. Continue per consultants. August 22: Status quo. Stable renal parameters. Continue per consultants. August 21: Labs were reviewed. Renal parameters are stable. Continue per co nsultants. August 20: Labs reviewed. Creatinine now normalized. Electrolytes within normal limit. Continue per consultants. Antibiotics Slow hydrate with normal saline Monitor renal parameters Keep the blood pressure blood sugar in check Per orders Subjective ROS Limited/Unobtainable: Yes Objective Objective Last 24 Hour Vital Signs Date Time Temp Pulse Resp B/P (MAP) Pulse Ox O2 Delivery O2 Flow Rate FiO2 09/05/20 09:00 Non-Rebreather 15.0 09/05/20 08:00 117 09/05/20 08:00 97.9 114 22 135/67 (89) 94 09/05/20 04:00 106 09/05/20 04:00 98.0 102 23 126/64 (84) 92 09/05/20 00:00 98.2 109 24 131/61 (84) 94 09/05/20 00:00 103 09/04/20 21:00 Non-Rebreather 15.0 09/04/20 20:00 99.0 103 23 121/61 (81) 94 09/04/20 20:00 121 09/04/20 19:17 94 Non-Rebreather 15.0 100 09/04/20 16:00 105 09/04/20 16:00 96.8 87 22 107/61 (76) 94 l Intake and Output 09/04/20 09/05/20 19:00 07:00 Intake Total 800 ml 300 ml Output Total 600 ml Balance 200 ml 300 ml Intake Oral 800 ml 300 ml Output Urine Total 600 ml # Voids 2 # Bowel Movements 1 2 Laboratory Tests 09/04/20 21:10: POC Whole Blood Glucose 149H 09/05/20 05:35: White Blood Count 16.2H, Red Blood Count 4.81, Hemoglobin 12.8L, Hematocrit 43.0, Mean Corpuscular Volume 89, Mean Corpuscular Hemoglobin 26.6L, Mean Corpuscular Hemoglobin Concent 29.8L, Red Cell Distribution Width 14.4, Platelet Count 152, Mean Platelet Volume 8.3, Neutrophils (%) (Auto) , Lymphocytes (%) (Auto) , Monocytes (%) (Auto) , Eosinophils (%) (Auto) , Basophils (%) (Auto) , Differential Total Cells Counted 100, Neutrophils % (Manual) 87H, Lymphocytes % (Manual) 7L, Monocytes % (Manual) 5, Eosinophils % (Manual) 1, Basophils % (Manual) 0, Band Neutrophils 0, Platelet Estimate Adequate, Platelet Morphology Normal, Hypochromasia 1+, Anisocytosis 1+, Sodium Level 143, Potassium Level 4.6, Chloride Level 106, Carbon Dioxide Level 32, Anion Gap 5, Blood Urea Nitrogen 19H, Creatinine 1.0, Estimat Glomerular Filtration Rate > 60, Glucose Level 127H, Calcium Level 9.1, Phosphorus Level 2.3L, Magnesium Level 2.0, Total Bilirubin 0.8, Aspartate Amino Transf (AST/SGOT) 16, Alanine Aminotransferase (ALT/SGPT) 12, Alkaline Phosphatase 75, Total Protein 6.5, Albumin 1.8L, Globulin 4.7, Albumin/Globulin Ratio 0.4L 09/05/20 10:58: POC Whole Blood Glucose [Pending] Height (Feet): 5 Height (Inches): 8.00 Weight (Pounds): 163 General Appearance: no apparent distress EENT: other - On nonrebreather mask Cardiovascular: tachycardia Respiratory/Chest: decreased breath sounds Abdomen: distended Objective No change Devonte Zuniga MD Sep 05, 2020 12:05
--- NOTE | 2020-09-05 13:22 | NUR ---
CASE MANAGEMENT:REVIEW 09/05/20 SI: COVID INFECTION. HYPOXIA 97.5 115 20 129/65 94% ON 15L/100% NRB WBC+16.2 BUN+19 IS: K-DUR PO QD ELIQUIS PO BID FLOMAX PO BID PROTONIX PO QD : TELEMETRY STATUS DCP: FROM [facility] PLAN: TITRATE OXYGEN
--- NOTE | 2020-09-05 14:19 | NUR ---
RADIOLOGY DEPT., CHEST X-RAY DONE.-P.DYE
--- NOTE | 2020-09-05 14:47 | Consultation ---
History of Present Illness General Date patient seen: Sep 05, 2020 Reason for Hospitalization: Dyspnea/Respdistress Present Illness HPI 85 year old male from care facility with sob respiratory decline currently admitted for some time has been noted to have worsening decubitus ulcers, malnutrition, labs. presented on admission with multiple skin concerns and now given chronic illness potentially inevitable decline. s urgery called to evaluate and assist with care. Allergies: Coded Allergies: No Known Allergies (Unverified , 01/04/19) COVID-19 Screening Contact w/high risk pt: Yes Experienced COVID-19 symptoms?: Yes Coronavirus symptoms experienc: Shortness of Breath Medication History Scheduled Apixaban (Eliquis*), 5 MG PO BID, (Reported) Aspirin* (Aspir 81*), 81 MG ORAL DAILY, (Reported) Bisacodyl (Biscolax), 10 MG RC PRN, (Reported) Cranberry Fruit (Cranberry), 2 TAB PO DAILY, (Reported) Dextran 70/Hypromellose (Artificial Tears Eye Drops*), 2 DROP BOTH EYES BEDTIME, (Reported) Docusate Sodium* (Colace*), 100 MG ORAL TWICE A DAY, (Reported) Finasteride* (Proscar*), 5 MG ORAL DAILY, (Reported) Insulin Aspart (Novolog), 0 SQ ACHS, (Reported) Magnesium Hydroxide* (Milk Of Magnesia*), 30 ML ORAL PRN, (Reported) Melatonin/Pyridoxine HCl (B6) (Melatonin 3 mg Tablet), 1 EACH PO BEDTIME, (Reported) Nitroglycerin 0.4MG table* (Nitroglycerin*), 0.4 MG SL every 5 hours, (Reported) Pantoprazole* (Pantoprazole*), 40 MG ORAL DAILY, (Reported) Tamsulosin Hcl (Tamsulosin Hcl*), 0.4 MG ORAL BID, (Reported) Scheduled PRN Acetaminophen (Acetaminophen), 650 MG ORAL Q4H PRN for Mild Pain (Pain Scale 1- 3), (Reported) Clonidine HCl (Clonidine HCl), 0.1 MG ORAL EVERY 6 HOURS PRN for For High Blood Pressure, (Reported) Diazepam* (Valium*), 5 MG ORAL BEDTIME PRN for For Anxiety, (Reported) Mineral Oil (Mineral Oil Enema), 133 ML RC DAILY PRN for Constipation, (Reported) Polyethylene Glycol 3350* (Miralax*), 17 GM ORAL DAILY PRN for Constipation, (Reported) Patient History Limited by: age, medical condition History Provided By: Medical Record, PMD Healthcare decision maker Resuscitation status Advanced Directive on File Past Medical/Surgical History Past Medical/Surgical History: (1) Renal failure (ARF), acute on chronic (2) Hypoalbuminemia (3) Nosocomial pneumonia (4) Diabetes mellitus (5) Sepsis due to urinary tract infection (6) Episode of generalized weakness (7) UTI (urinary tract infection) (8) Hypertension (9) Chronic constipation (10) Renal failure (ARF), acute on chronic (11) Cerebrovascular accident (CVA) (12) Incontinence (13) MRSA (methicillin resistant Staphylococcus aureus) infection (14) Multiple polyps of sigmoid colon (15) Decubitus skin ulcer (16) CVA, old, hemiparesis (17) Hypoxia (18) 2019 novel coronavirus detected (19) BPH (benign prostatic hyperplasia) Review of Systems Review of Symptoms General ROS: no weight loss or fever Psychological ROS: no depression or mood changes, no memory loss Ophthalmic ROS: no visual changes or eye irritation ENT ROS: no nasal congestion, hearing loss, dizziness Allergy and Immunology ROS: no allergic symptoms or urticaria Hematological and Lymphatic ROS: no swollen glands, unusual bleeding or bruising Endocrine ROS: no polyuria, polydipsia, weight changes, temperature intolerance Respiratory ROS: no cough, shortness of breath, or wheezing Cardiovascular ROS: no chest pain or dyspnea on exertion Gastrointestinal ROS: denies abdominal pain, bright red blood in stool. Musculoskeletal ROS: no myalgias or arthralgias Neurological ROS: no TIA or stroke symptoms Dermatological ROS: no new or changing skin lesions, rashes or pruritis limited Physical Exam Physical Exam General appearance: alert, no distress, appears stated age Head: Normocephalic, without obvious abnormality, atraumatic Eyes: conjunctivae/corneas clear. PERRL, EOM's intact. Fundi benign Throat: Lips, mucosa, and tongue normal. Teeth and gums normal Neck: supple, symmetrical, trachea midline, no adenopathy, thyroid: not enlarged, symmetric, no tenderness/mass/nodules, no carotid bruit and no JVD Lungs: dec to auscultation bilaterally Heart: regular rate and rhythm, S1, S2 normal, no murmur, click, rub or gallop Abdomen: soft, non-tender. Bowel sounds normal. No masses, no organomegaly Extremities: extremities normal, atraumatic, no cyanosis or edema Pulses: 2+ and symmetric Skin: Skin see below Neurologic: Grossly normal Last 24 Hour Vital Signs Date Time Temp Pulse Resp B/P (MAP) Pulse Ox O2 Delivery O2 Flow Rate FiO2 09/05/20 12:00 97.5 115 20 129/65 (86) 94 09/05/20 12:00 117 09/05/20 09:00 Non-Rebreather 15.0 09/05/20 08:00 117 09/05/20 08:00 97.9 114 22 135/67 (89) 94 09/05/20 04:00 106 09/05/20 04:00 98.0 102 23 126/64 (84) 92 09/05/20 00:00 98.2 109 24 131/61 (84) 94 09/05/20 00:00 103 09/04/20 21:00 Non-Rebreather 15.0 09/04/20 20:00 99.0 103 23 121/61 (81) 94 09/04/20 20:00 121 09/04/20 19:17 94 Non-Rebreather 15.0 100 09/04/20 16:00 105 09/04/20 16:00 96.8 87 22 107/61 (76) 94 Intake and Output 09/04/20 09/05/20 19:00 07:00 Intake Total 800 ml 300 ml Output Total 600 ml Balance 200 ml 300 ml Intake Oral 800 ml 300 ml Output Urine Total 600 ml # Voids 2 # Bowel Movements 1 2 Laboratory Tests Test 09/04/20 21:10 09/05/20 05:35 09/05/20 10:58 POC Whole Blood Glucose 149 MG/DL (74-106) H Pending White Blood Count 16.2 K/UL (4.8-10.8) H Red Blood Count 4.81 M/UL (4.70-6.10) Hemoglobin 12.8 G/DL (14.2-18.0) L Hematocrit 43.0 % (42.0-52.0) Mean Corpuscular Volume 89 FL (80-99) Mean Corpuscular Hemoglobin 26.6 PG (27.0-31.0) L Mean Corpuscular Hemoglobin Concent 29.8 G/DL (32.0-36.0) L Red Cell Distribution Width 14.4 % (11.6-14.8) Platelet Count 152 K/UL (150-450) Mean Platelet Volume 8.3 FL (6.5-10.1) Neutrophils (%) (Auto) % (45.0-75.0) Lymphocytes (%) (Auto) % (20.0-45.0) Monocytes (%) (Auto) % (1.0-10.0) Eosinophils (%) (Auto) % (0.0-3.0) Basophils (%) (Auto) % (0.0-2.0) Differential Total Cells Counted 100 Neutrophils % (Manual) 87 % (45-75) H Lymphocytes % (Manual) 7 % (20-45) L Monocytes % (Manual) 5 % (1-10) Eosinophils % (Manual) 1 % (0-3) Basophils % (Manual) 0 % (0-2) Band Neutrophils 0 % (0-8) Platelet Estimate Adequate Platelet Morphology Normal Hypochromasia 1+ Anisocytosis 1+ Sodium Level 143 MMOL/L (136-145) Potassium Level 4.6 MMOL/L (3.5-5.1) Chloride Level 106 MMOL/L (98-107) Carbon Dioxide Level 32 MMOL/L (21-32) Anion Gap 5 mmol/L (5-15) Blood Urea Nitrogen 19 mg/dL (7-18) H Creatinine 1.0 MG/DL (0.55-1.30) Estimat Glomerular Filtration Rate > 60 mL/min (>60) Glucose Level 127 MG/DL (74-106) H Calcium Level 9.1 MG/DL (8.5-10.1) Phosphorus Level 2.3 MG/DL (2.5-4.9) L Magnesium Level 2.0 MG/DL (1.8-2.4) Total Bilirubin 0.8 MG/DL (0.2-1.0) Aspartate Amino Transf (AST/SGOT) 16 U/L (15-37) Alanine Aminotransferase (ALT/SGPT) 12 U/L (12-78) Alkaline Phosphatase 75 U/L (46-116) Total Protein 6.5 G/DL (6.4-8.2) Albumin 1.8 G/DL (3.4-5.0) L Globulin 4.7 g/dL Albumin/Globulin Ratio 0.4 (1.0-2.7) L Height (Feet): 5 Height (Inches): 8.00 Weight (Pounds): 163 Medications Current Medications Medications (Trade) Dose Ordered Sig/Amaya Route PRN Reason Start Time Stop Time Status Last Admin Dose Admin Acetaminophen (Tylenol) 650 mg Q4H PRN ORAL Mild Pain (Pain Scale 1-3) 09/04/20 10:00 10/04/20 09:59 Acetaminophen (Tylenol) 650 mg Q4H PRN ORAL Temp >100.5 09/04/20 10:00 10/04/20 09:59 Albuterol/ Ipratropium (Combivent Respimat) 1 puff Q4H PRN INH Shortness of Breath 08/18/20 13:00 09/17/20 12:59 09/04/20 13:23 Apixaban (Eliquis) 5 mg BID ORAL 08/18/20 18:00 11/16/20 17:59 09/05/20 08:43 Dextrose (Dextrose 50%) 25 ml Q30M PRN IV Hypoglycemia 08/18/20 11:45 11/16/20 11:44 Dextrose (Dextrose 50%) 50 ml Q30M PRN IV Hypoglycemia 08/18/20 11:45 11/16/20 11:44 Insulin Aspart (NovoLOG) BEFORE MEALS AND HS SUBQ 08/18/20 16:30 11/16/20 16:29 09/04/20 21:13 Nitroglycerin (Ntg) 0.4 mg Q5M PRN SL Prn Chest Pain 09/04/20 06:45 10/04/20 06:44 Ondansetron HCl (Zofran) 4 mg Q6H PRN IVP Nausea & Vomiting 08/17/20 19:45 09/16/20 19:44 Pantoprazole (Protonix) 40 mg DAILY ORAL 08/18/20 09:00 09/17/20 08:59 09/05/20 08:43 Polyethylene Glycol (Miralax) 17 gm DAILYPRN PRN ORAL Constipation 08/17/20 19:45 09/16/20 19:44 08/19/20 17:56 Potassium Chloride (K-Dur) 20 meq DAILY ORAL 08/29/20 12:45 3/24/21 12:44 09/05/20 08:43 Promethazine HCl/ Codeine (Phenergan with Codeine) 5 ml Q6H PRN ORAL cough 08/17/20 19:45 09/16/20 19:44 09/04/20 11:40 Tamsulosin HCl (Flomax) 0.4 mg BID ORAL 08/18/20 09:00 09/17/20 08:59 09/05/20 08:43 Assessment/Plan Problem List: (1) Renal failure (ARF), acute on chronic ICD Codes: N17.9 - Acute kidney failure, unspecified; N18.9 - Chronic kidney disease, unspecified SNOMED: 788059277 (2) Hypoalbuminemia Assessment & Plan: leukocytosis critically ill alb trending down diet given unfortunately potential inevitable decline discussed with nursing staff cont plan of care and close monitoring ICD Codes: E88.09 - Other disorders of plasma-protein metabolism, not elsewhere classified SNOMED: 114040544 (3) Nosocomial pneumonia ICD Codes: J18.9 - Pneumonia, unspecified organism; Y95 - Nosocomial condition SNOMED: 935812950 (4) Diabetes mellitus ICD Codes: E11.9 - Type 2 diabetes mellitus without complications SNOMED: 30568658 (5) Sepsis due to urinary tract infection ICD Codes: A41.9 - Sepsis, unspecified organism; N39.0 - Urinary tract infection, site not specified SNOMED: 329022010 (6) Episode of generalized weakness ICD Codes: R53.1 - Weakness SNOMED: 19557146 (7) UTI (urinary tract infection) ICD Codes: N39.0 - Urinary tract infection, site not specified SNOMED: 06836013 (8) Hypertension ICD Codes: I10 - Essential (primary) hypertension SNOMED: 65005133 (9) Chronic constipation ICD Codes: K59.09 - Other constipation SNOMED: 135524363 (10) Renal failure (ARF), acute on chronic ICD Codes: N17.9 - Acute kidney failure, unspecified; N18.9 - Chronic kidney disease, unspecified SNOMED: 100901405 (11) Cerebrovascular accident (CVA) ICD Codes: I63.9 - Cerebral infarction, unspecified SNOMED: 832918507 (12) Incontinence ICD Codes: R32 - Unspecified urinary incontinence SNOMED: 67344550 (13) MRSA (methicillin resistant Staphylococcus aureus) infection ICD Codes: A49.02 - Methicillin resistant Staphylococcus aureus infection, unspecified site SNOMED: 570685890 (14) Multiple polyps of sigmoid colon ICD Codes: D12.5 - Benign neoplasm of sigmoid colon SNOMED: 193342795 (15) Decubitus skin ulcer Assessment & Plan: Pt presented on admission with Multiple skin breakdown. Pt exhibited hostility,and was initially not receptive to having skin assessed by wound nurses. Pt was informed wound nurses were there to assess wound on his buttocks. Pt reluctantly consented to having skin assessed. Partial Thickness shearing noted to Sacrum. Base of wound is moist and viable. Non-Blanchable erythema without elevation in skin temp ,induration or fluctuance. Scrotum is erythematous. Non-Blanchable erythema without erythema,induration, or fluctuance R Heel. (L)9cm x (W)5cm. Non-Blanchable erythema without erythema, induration or fluctuance L Heel(L05cm x (W)9cm. PT was educated on wound prevention. Pt informed of risks for further skin decline if Pressure is not being relieved. PT again became hostile and accused staff of Prioritizing his needs. Pt demanded staff get him a book which he informed staff had been delivered downstairs and left with public health internship. Primary nurse present and is aware of pt's demands. Wound nurse again attempted to educate pt on wound prevention but pt dismissive of staff. Primary nurse reported pt is resisitive to being repositioned. Partial Thickness Pressure injury Sacrum (L)1cm x (W)0.6cm. Base of wound is moist and viable with surrounding non-blanchable erythema. No evidence of induration or changes n skin temp noted. Pt resistive to being repositioned. Pt has been educated of risks for further skin decline if pressure is not being relieved off buttocks. Pt then allowed staff to reposition on R side. Scrotum is erythematous. Pt noted to have bladder incontinence. When Urinal placed within reach and encouraged to use urinal, Pt expressed preference to wearing condom Cath. R heel is boggy with non-blanchable erythema. L Heel is boggy with Non-Blanchable erythema. Rubor noted to plantar aspects of both feet. Non-Blanchable erythema L 1st metatarsal head. Tx.Plan: Apply Moisture Barrier Paste to Sacrum. Cover with Optifoam drsg. Change every 3 days and prn. Apply Moisture Barrier Paste to Scrotum with each incontinence care. Apply Cavilon Skin Barrier to both heels and head L 1st metatarsal. Cover each heel with Optifoam drsg. Change every 7 days and prn. Reposition at least every 2hours or as tolerated. Off-load heels with pillow. Nutritional optimization DAILY ESTIMATED NEEDS: Needs based on DM, pulmonary 74kg 25-35 kcals/kg 2748-9398 total kcals 1.25-1.5 g protein/kg 93-111 g total protein 20-25 mL/kg 4968-2922 total fluid mLs NUTRITION DIAGNOSIS: Altered nutrition related lab values r/t hyperglycemia as evidenced by A1C 6.1, BG 149-155, elevated POC (166-182). (CURRENT DIET: Cardiac soft easy chew) PO DIET RECOMMENDATIONS-->>> CCHO MED / LOW NA ADDITIONAL RECOMMENDATIONS: 1) Maintain daily calibrated bed scale wts 2) Diet recs as above 3) Monitor for need for texture modifications (currently on soft easy chew) 4) Snacks as tolerated w/ current variable po intake Add GLUCERNA TID w trays 5) As tolerated rec FANNIE FRUIT PUNCH in 8oz water BID for skin integrity ICD Codes: L89.90 - Pressure ulcer of unspecified site, unspecified stage SNOMED: 880272963 (16) CVA, old, hemiparesis ICD Codes: I69.359 - Hemiplegia and hemiparesis following cerebral infarction affecting unspecified side SNOMED: 370459831 (17) Hypoxia ICD Codes: R09.02 - Hypoxemia SNOMED: 290027723 (18) 2019 novel coronavirus detected ICD Codes: U07.1 - COVID-19 SNOMED: 3230567280451026 (19) BPH (benign prostatic hyperplasia) ICD Codes: N40.0 - Benign prostatic hyperplasia without lower urinary tract symptoms SNOMED: 988324426 Guru [place] Sep 05, 2020 14:47
--- NOTE | 2020-09-05 14:51 | Diagnostic Imaging Report ---
Indication: Abnormal chest sounds Technique: One view of the chest Comparison: 09/02/2020 Findings: Pleural thickening or fluid in the right upper hemithorax appears somewhat increased, although this may be an artifact of positioning. Bilateral diffuse infiltrates are unchanged. Bilateral basilar atelectasis is unchanged Impression: Probably unchanged, although there may be some increased nondependent pleural fluid or thickening in the right upper hemithorax
[2020-09-05 16:00] VITALS: BP 125/61
--- NOTE | 2020-09-05 16:15 | General Progress Note ---
Subjective ROS Limited/Unobtainable: Yes Allergies: Coded Allergies: No Known Allergies (Unverified , 01/04/19) Objective Last 24 Hour Vital Signs Date Time Temp Pulse Resp B/P (MAP) Pulse Ox O2 Delivery O2 Flow Rate FiO2 09/05/20 12:00 97.5 115 20 129/65 (86) 94 09/05/20 12:00 117 09/05/20 09:00 Non-Rebreather 15.0 09/05/20 08:00 117 09/05/20 08:00 97.9 114 22 135/67 (89) 94 09/05/20 07:00 94 Non-Rebreather 15.0 100 09/05/20 04:00 106 09/05/20 04:00 98.0 102 23 126/64 (84) 92 09/05/20 00:00 98.2 109 24 131/61 (84) 94 09/05/20 00:00 103 09/04/20 21:00 Non-Rebreather 15.0 09/04/20 20:00 99.0 103 23 121/61 (81) 94 09/04/20 20:00 121 09/04/20 19:17 94 Non-Rebreather 15.0 100 l Intake and Output 09/04/20 09/05/20 19:00 07:00 Intake Total 800 ml 300 ml Output Total 600 ml Balance 200 ml 300 ml Intake Oral 800 ml 300 ml Output Urine Total 600 ml # Voids 2 # Bowel Movements 1 2 Laboratory Tests 09/04/20 21:10: POC Whole Blood Glucose 149H 09/05/20 05:35: White Blood Count 16.2H, Red Blood Count 4.81, Hemoglobin 12.8L, Hematocrit 43.0, Mean Corpuscular Volume 89, Mean Corpuscular Hemoglobin 26.6L, Mean Corpuscular Hemoglobin Concent 29.8L, Red Cell Distribution Width 14.4, Platelet Count 152, Mean Platelet Volume 8.3, Neutrophils (%) (Auto) , Lymphocytes (%) (Auto) , Monocytes (%) (Auto) , Eosinophils (%) (Auto) , Basophils (%) (Auto) , Differential Total Cells Counted 100, Neutrophils % (Manual) 87H, Lymphocytes % (Manual) 7L, Monocytes % (Manual) 5, Eosinophils % (Manual) 1, Basophils % (Manual) 0, Band Neutrophils 0, Platelet Estimate Adequate, Platelet Morphology Normal, Hypochromasia 1+, Anisocytosis 1+, Sodium Level 143, Potassium Level 4.6, Chloride Level 106, Carbon Dioxide Level 32, Anion Gap 5, Blood Urea Nitrogen 19H, Creatinine 1.0, Estimat Glomerular Filtration Rate > 60, Glucose Level 127H, Calcium Level 9.1, Phosphorus Level 2.3L, Magnesium Level 2.0, Total Bilirubin 0.8, Aspartate Amino Transf (AST/SGOT) 16, Alanine Aminotransferase (ALT/SGPT) 12, Alkaline Phosphatase 75, Total Protein 6.5, Albumin 1.8L, Globulin 4.7, Albumin/Globulin Ratio 0.4L 09/05/20 10:58: POC Whole Blood Glucose [Pending] Height (Feet): 5 Height (Inches): 8.00 Weight (Pounds): 163 Assessment/Plan Problem List: (1) Renal failure (ARF), acute on chronic ICD Codes: N17.9 - Acute kidney failure, unspecified; N18.9 - Chronic kidney disease, unspecified SNOMED: 059802051 (2) Diabetes mellitus ICD Codes: E11.9 - Type 2 diabetes mellitus without complications SNOMED: 38771392 (3) Sepsis due to urinary tract infection ICD Codes: A41.9 - Sepsis, unspecified organism; N39.0 - Urinary tract infection, site not specified SNOMED: 059421361 (4) Episode of generalized weakness ICD Codes: R53.1 - Weakness SNOMED: 89227616 (5) Renal failure (ARF), acute on chronic ICD Codes: N17.9 - Acute kidney failure, unspecified; N18.9 - Chronic kidney disease, unspecified SNOMED: 582414467 (6) CVA, old, hemiparesis ICD Codes: I69.359 - Hemiplegia and hemiparesis following cerebral infarction affecting unspecified side SNOMED: 759727045 (7) Hypoxia ICD Codes: R09.02 - Hypoxemia SNOMED: 794455209 (8) 2019 novel coronavirus detected ICD Codes: U07.1 - COVID-19 SNOMED: 1746538808557705 (9) BPH (benign prostatic hyperplasia) ICD Codes: N40.0 - Benign prostatic hyperplasia without lower urinary tract symptoms SNOMED: 993636604 Status: unchanged Assessment/Plan: covid positive azotemia weak no change reviewed chart Jose David Headley MD Sep 05, 2020 16:15
--- NOTE | 2020-09-05 19:03 | NUR ---
NURSE HAND-OFF REPORT: Important Events on Shift: Still on non-rebreather sats 85-92%, pt refuses to go on continuous bipap, sister Gabriela is aware Patient Status: Guarded Diet: Cardiac finely chopped Pending Orders: N Pending Results/Labs: Labs in AM Pending MD notification: N Latest Vital Signs: Temperature 97.7 , Pulse 110 , B/P 125 /61 , Respiratory Rate 22 , O2 SAT 93 , Nasal Cannula, O2 Flow Rate 15.0 . Vital Sign Comment: EKG Rhythm: ST w/ BBB Rhythm change?: N MD Notified?: N -Dr. Sacha GLASS Response: No New Orders Received Latest Wong Fall Score: 55 Fall Risk: High Risk Safety Measures: Call light Within Reach, Bed Alarm Zone 1, Side Rails Side Rails x3, Bed position Low and Locked. Fall Precautions: Yellow Socks Yellow Gown Door Sign Patient Fall Education Report given to Chelly ADAMS.
--- NOTE | 2020-09-05 19:22 | NUR ---
NURSE NOTES: received report from BRYAN Wall. Pt is resting in bed. Pt is stable on 15L NRB, 93% spo2 unlabored even breathing, no s/s or complaint of distress at this time. Pt has R sided weakness noted. Sacral stage 1 noted, redness on R axillary covered with optifoam, inner thigh redness. Pt has condom catheter. Pt IV R FA 22g SL, asymptomatic and intact. Pt bed low and locked, call light in reach and bed alarm on. pt verbalized understanding to call for help.
--- NOTE | 2020-09-05 19:42 | Cardiac Electrophysiology PN ---
Assessment/Plan Assessment/Plan 1. COVID-19 pneumonia. S/P Remdesevir and dexamethasone On apixaban 5 bid, iv Abx and 15 liter NRB FM 2. Hypertension. Stable off antihypertensive agents. 3. Diabetes. 4. History of CVA with hemiparesis. 5. Benign prostatic hypertrophy. 6. Neno with HR high 40s, likely due to Covid. Asymptomatic 7. Right pleural effusion. Thoracentesis yesterday not done as not enough fluid 8. CP. Pleuritic. No AK. ECG unchanged DW RN Subjective Subjective On 15 liter NRBFM in Covid isolation. In SR. Refusing BIPAP. Thoracentesis not done as not enough fluid Had pleuritic CP but troponin was negative. Comfortable now Objective Last 24 Hour Vital Signs Date Time Temp Pulse Resp B/P (MAP) Pulse Ox O2 Delivery O2 Flow Rate FiO2 09/05/20 16:00 110 09/05/20 16:00 97.7 112 22 125/61 (82) 93 09/05/20 12:00 97.5 115 20 129/65 (86) 94 09/05/20 12:00 117 09/05/20 09:00 Non-Rebreather 15.0 09/05/20 08:00 117 09/05/20 08:00 97.9 114 22 135/67 (89) 94 09/05/20 07:00 94 Non-Rebreather 15.0 100 09/05/20 04:00 106 09/05/20 04:00 98.0 102 23 126/64 (84) 92 09/05/20 00:00 98.2 109 24 131/61 (84) 94 09/05/20 00:00 103 09/04/20 21:00 Non-Rebreather 15.0 09/04/20 20:00 99.0 103 23 121/61 (81) 94 09/04/20 20:00 121 Intake and Output 09/04/20 09/05/20 19:00 07:00 Intake Total 800 ml 300 ml Output Total 600 ml Balance 200 ml 300 ml Intake Oral 800 ml 300 ml Output Urine Total 600 ml # Voids 2 # Bowel Movements 1 2 Laboratory Tests Test 09/04/20 21:10 09/05/20 05:35 09/05/20 10:58 09/05/20 17:05 POC Whole Blood Glucose 149 MG/DL (74-106) H Pending 145 MG/DL (74-106) H White Blood Count 16.2 K/UL (4.8-10.8) H Red Blood Count 4.81 M/UL (4.70-6.10) Hemoglobin 12.8 G/DL (14.2-18.0) L Hematocrit 43.0 % (42.0-52.0) Mean Corpuscular Volume 89 FL (80-99) Mean Corpuscular Hemoglobin 26.6 PG (27.0-31.0) L Mean Corpuscular Hemoglobin Concent 29.8 G/DL (32.0-36.0) L Red Cell Distribution Width 14.4 % (11.6-14.8) Platelet Count 152 K/UL (150-450) Mean Platelet Volume 8.3 FL (6.5-10.1) Neutrophils (%) (Auto) % (45.0-75.0) Lymphocytes (%) (Auto) % (20.0-45.0) Monocytes (%) (Auto) % (1.0-10.0) Eosinophils (%) (Auto) % (0.0-3.0) Basophils (%) (Auto) % (0.0-2.0) Differential Total Cells Counted 100 Neutrophils % (Manual) 87 % (45-75) H Lymphocytes % (Manual) 7 % (20-45) L Monocytes % (Manual) 5 % (1-10) Eosinophils % (Manual) 1 % (0-3) Basophils % (Manual) 0 % (0-2) Band Neutrophils 0 % (0-8) Platelet Estimate Adequate Platelet Morphology Normal Hypochromasia 1+ Anisocytosis 1+ Sodium Level 143 MMOL/L (136-145) Potassium Level 4.6 MMOL/L (3.5-5.1) Chloride Level 106 MMOL/L (98-107) Carbon Dioxide Level 32 MMOL/L (21-32) Anion Gap 5 mmol/L (5-15) Blood Urea Nitrogen 19 mg/dL (7-18) H Creatinine 1.0 MG/DL (0.55-1.30) Estimat Glomerular Filtration Rate > 60 mL/min (>60) Glucose Level 127 MG/DL (74-106) H Calcium Level 9.1 MG/DL (8.5-10.1) Phosphorus Level 2.3 MG/DL (2.5-4.9) L Magnesium Level 2.0 MG/DL (1.8-2.4) Total Bilirubin 0.8 MG/DL (0.2-1.0) Aspartate Amino Transf (AST/SGOT) 16 U/L (15-37) Alanine Aminotransferase (ALT/SGPT) 12 U/L (12-78) Alkaline Phosphatase 75 U/L (46-116) Total Protein 6.5 G/DL (6.4-8.2) Albumin 1.8 G/DL (3.4-5.0) L Globulin 4.7 g/dL Albumin/Globulin Ratio 0.4 (1.0-2.7) L Objective HEAD AND NECK: No JVD.On NRB FM LUNGS: Coarse rhonchi. CARDIOVASCULAR: Regular S1 and S2 with no gallop or murmur. ABDOMEN: Soft. EXTREMITIES: No pitting edema. Sabino Goncalves MD Sep 05, 2020 19:42
[2020-09-05 20:00] VITALS: BP 119/64
[2020-09-05] MEDS: Promethazine/Codeine 5ml UD ORAL PRN (20:00)
--- NOTE | 2020-09-05 20:30 | NUR ---
NURSE NOTES: Pt on 15NRB 88-90% spo2. Pt educated to deep breathe and reposition. pt refuses. Pt says " no you guys are always blaming the patient, it is not the patients fault. the machine (in reference to the vitals machine) is defective" explained to pt that his oxygenation on the machine is the same on multiple machines and that his breathing and HR have increased. Pt refuses at this time. Inhaler administered and cough syrup administered at this time. Addendum: 09/05/20 at 2049 by Chelly Rosario RN RN spo2 remains 91%
--- NOTE | 2020-09-05 21:17 | NUR ---
NURSE NOTES: Pt low saturation 08658% spo2, spoke to Pt about bipap, educated Pt on how the pulse oximeter/vitals machine works again. pt had previously refused bipap. spoke to pt, pt agrees at this time. called RT to set up for pt. Addendum: 09/05/20 at 2158 by Chelly Rosario RN RN Bipap applied and refused. risks and benefits explained and pt educated. refused. placeed back on 15 NRB spo2 91%
--- NOTE | 2020-09-05 21:54 | NUR ---
NURSE NOTES: Pt ST 127. checked in on Pt, Pt is stable, no complaints of pain or chest pain. pt went back down to 112 HR. pt has Hx of ST, per AM RN Dr prado, is aware. Sacha to be made aware at rounds.
--- NOTE | 2020-09-05 23:10 | NUR ---
NURSE NOTES: Pt 88 on 15LPM NRB, still refusing bipap, education provided. Addendum: 09/05/20 at 2336 by Chelly Rosario RN RN Per Dr iWlson, discontinue Bipap order d/t Pt refusal. Notified Dr Wilson of Pt 88-90% spo2, refusing repositioning, deep breathing.
[2020-09-06] VITALS (8 sets, daily range): BP systolic 106–130; BP diastolic 58–70
--- NOTE | 2020-09-06 05:55 | NUR ---
NURSE HAND-OFF REPORT: Important Events on Shift: 87-91% spo2 on 15 LPM NRB refusing bipap, Dr Panda d/c bipap// ST when coughing, Dr Panda aware Patient Status: fc stable Diet: regular diet , chopped, 1:1 feed Pending Orders: Pending Results/Labs: Pending MD notification: Latest Vital Signs: Temperature 97.3 , Pulse 115 , B/P 130 /67 , Respiratory Rate 32 , O2 SAT 88 , Nasal Cannula, O2 Flow Rate 15.0 . Vital Sign Comment: EKG Rhythm: ST w BBB Rhythm change?: N MD Notified?: N -Dr. Sacha GLASS Response: No New Orders Received Latest Wong Fall Score: 55 Fall Risk: High Risk Safety Measures: Call light Within Reach, Bed Alarm Zone 1, Side Rails Side Rails x3, Bed position Low and Locked. Fall Precautions: Yellow Socks Yellow Gown Door Sign Patient Fall Education Report to be given. Addendum: 09/06/20 at 0734 by Chelly Rosario RN RN NURSE NOTES: Pt report given to BRYAN Batres. Follow up with Pt and PCP regarding Pts code status, Pt does not wish to be intubated but wishes FC, needs clarification. F/u whether or not to cont. Pt home med of amlodipine and medical records from [facility]. Addendum: 09/06/20 at 0735 by Chelly Rosario RN RN disregard previous addendum. REPORT GIVEN TO BRYAN LIRIANO. PT IS STABLE.
[2020-09-06 05:57] LABS: HEMATOCRIT 38.7 % (42.0-52.0); HEMOGLOBIN 11.9 G/DL (14.2-18.0); MEAN CORPUSCULAR VOLUME 89 FL (80-99); PLATELET COUNT 143 K/UL (150-450); RED BLOOD COUNT 4.34 M/UL (4.70-6.10); RED CELL DISTRIBUTION WIDTH 14.4 % (11.6-14.8); WHITE BLOOD COUNT 17.1 K/UL (4.8-10.8)
[2020-09-06] MEDS: NovoLOG Insulin Flexpen SUBQ SCH ×4 (06:30→20:42)
[2020-09-06 07:03] LABS: ALANINE AMINOTRANSFERASE 12 U/L (12-78); ALBUMIN 1.6 G/DL (3.4-5.0); ALBUMIN/GLOBULIN RATIO 0.3 (1.0-2.7); ALKALINE PHOSPHATASE 75 U/L (46-116); ASPARTATE AMINO TRANSFERASE 14 U/L (15-37); BILIRUBIN,TOTAL 0.8 MG/DL (0.2-1.0); BLOOD UREA NITROGEN 21 mg/dL (7-18); CALCIUM 9.4 MG/DL (8.5-10.1); CARBON DIOXIDE 33 MMOL/L (21-32); CREATININE 0.9 MG/DL (0.55-1.30)
[2020-09-06 07:40] LABS: CHLORIDE 107 MMOL/L (98-107); POTASSIUM 4.9 MMOL/L (3.5-5.1); SODIUM 143 MMOL/L (136-145)
[2020-09-06] MEDS: Tamsulosin 0.4mg cap ORAL SCH ×2 (07:59→18:26)
[2020-09-06] MEDS: Eliquis 5mg tablet ORAL SCH ×2 (08:00→18:26)
--- NOTE | 2020-09-06 08:51 | Infectious Diseases Prog Note ---
Assessment/Plan 84yo M with: Afebrile Normal WBC Lymphopenia COVID pneumonia, severe Acute hypoxic resp failure 2/2 COVID pna UTI/cystitis 08/17 BCx NTD UCx +ESBL E.coli CXR: No significant change in tortuosity/ectasia of the thoracic aorta. Negative for cardiac enlargement. Negative for focal consolidation, pneumothorax or pleural fluid collections. COVID rapid test positive, PCR positive 08/22 CXR: New or markedly worsened bilateral infiltrates, since prior exam of 5 days earlier 08/28 CXR: Worsening bilateral infiltrates, versus edema, bilaterally 08/29 CXR: Right pleural effusion and infiltrates, unchanged. Improving left basilar atelectasis and infiltrate 09/02 CXR: Increasing bilateral infiltrates. 09/06 CXR: Probably unchanged, although there may be some increased nondependent pleural fluid or thickening in the right upper hemithorax Cr 1.8, improving 08/19 Renal US: Negative for hydronephrosis. 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 Bilateral renal cysts, large on the right. Plan: Start meropenem empiric given increased WOB, increased WBC Recommend readdressing GOC, as pt full code yet refusing BiPAP, so intubation doesn't appear to be in line with GOC Prone / lay on side if able, d/w RN Recommend diuresis, BNP >7000k Trend WBC 09/04 SP Zosyn #7 08/27 SP dex #10 08/24 SP RDV #5, ertapenem #5 for UTI 08/23 SP Azithro #5 Convalescent plasma unfortunately not available at this institution so unable to give, additionally unclear if it improves mortality/outcomes or not Monitor CBC/CMP Monitor temp curve, hemodynamics Monitor resp status D/w RN Thank you for this consult. [facility] will continue to follow. Subjective Allergies: Coded Allergies: No Known Allergies (Unverified , 01/04/19) AF NAD on 15L NRB satting 88-90% WBC up to 17 Increased WOB Refusing BiPAP, though still full code Looks more tired Objective Last 24 Hour Vital Signs Date Time Temp Pulse Resp B/P (MAP) Pulse Ox O2 Delivery O2 Flow Rate FiO2 09/06/20 08:00 97.5 114 28 121/70 (87) 90 09/06/20 04:00 108 09/06/20 04:00 97.3 115 32 130/67 (88) 88 09/06/20 00:00 100 09/06/20 00:00 99.1 120 22 129/61 (83) 90 09/05/20 21:54 127 09/05/20 21:00 Non-Rebreather 15.0 09/05/20 20:00 118 09/05/20 20:00 98.8 123 25 119/64 (82) 90 09/05/20 19:46 92 Non-Rebreather 15.0 100 09/05/20 16:00 110 09/05/20 16:00 97.7 112 22 125/61 (82) 93 09/05/20 12:00 97.5 115 20 129/65 (86) 94 09/05/20 12:00 117 09/05/20 09:00 Non-Rebreather 15.0 Height (Feet): 5 Height (Inches): 8.00 Weight (Pounds): 163 Gen: NAD HEENT: NCAT Pulm: BL chest rise Abd: Non-distended Ext: No c/c/e Skin: No visible rashes Neuro: Awake, interactive Laboratory Tests Test 09/05/20 10:58 09/05/20 17:05 09/05/20 20:36 09/06/20 03:45 POC Whole Blood Glucose Pending 145 MG/DL (74-106) H 157 MG/DL (74-106) H White Blood Count 17.1 K/UL (4.8-10.8) H Red Blood Count 4.34 M/UL (4.70-6.10) L Hemoglobin 11.9 G/DL (14.2-18.0) L Hematocrit 38.7 % (42.0-52.0) L Mean Corpuscular Volume 89 FL (80-99) Mean Corpuscular Hemoglobin 27.5 PG (27.0-31.0) Mean Corpuscular Hemoglobin Concent 30.8 G/DL (32.0-36.0) L Red Cell Distribution Width 14.4 % (11.6-14.8) Platelet Count 143 K/UL (150-450) L Mean Platelet Volume 8.9 FL (6.5-10.1) Neutrophils (%) (Auto) % (45.0-75.0) Lymphocytes (%) (Auto) % (20.0-45.0) Monocytes (%) (Auto) % (1.0-10.0) Eosinophils (%) (Auto) % (0.0-3.0) Basophils (%) (Auto) % (0.0-2.0) Neutrophils % (Manual) Pending Lymphocytes % (Manual) Pending Platelet Estimate Pending Platelet Morphology Pending Erythrocyte Sedimentation Rate 71 MM/HR (0-20) H Sodium Level 143 MMOL/L (136-145) Potassium Level 4.9 MMOL/L (3.5-5.1) Chloride Level 107 MMOL/L (98-107) Carbon Dioxide Level 33 MMOL/L (21-32) H Blood Urea Nitrogen 21 mg/dL (7-18) H Creatinine 0.9 MG/DL (0.55-1.30) Estimat Glomerular Filtration Rate > 60 mL/min (>60) Glucose Level 155 MG/DL (74-106) H Calcium Level 9.4 MG/DL (8.5-10.1) Phosphorus Level 3.0 MG/DL (2.5-4.9) Magnesium Level 2.0 MG/DL (1.8-2.4) Total Bilirubin 0.8 MG/DL (0.2-1.0) Aspartate Amino Transf (AST/SGOT) 14 U/L (15-37) L Alanine Aminotransferase (ALT/SGPT) 12 U/L (12-78) Alkaline Phosphatase 75 U/L (46-116) C-Reactive Protein, Quantitative 48.3 mg/dL (0.00-0.90) H Total Protein 6.3 G/DL (6.4-8.2) L Albumin 1.6 G/DL (3.4-5.0) L Globulin 4.7 g/dL Albumin/Globulin Ratio 0.3 (1.0-2.7) L Prealbumin Pending Current Medications Medications (Trade) Dose Ordered Sig/Amaya Route PRN Reason Start Time Stop Time Status Last Admin Dose Admin Acetaminophen (Tylenol) 650 mg Q4H PRN ORAL Mild Pain (Pain Scale 1-3) 09/04/20 10:00 10/04/20 09:59 Acetaminophen (Tylenol) 650 mg Q4H PRN ORAL Temp >100.5 09/04/20 10:00 10/04/20 09:59 Albuterol/ Ipratropium (Combivent Respimat) 1 puff Q4H PRN INH Shortness of Breath 08/18/20 13:00 09/17/20 12:59 09/05/20 19:59 Apixaban (Eliquis) 5 mg BID ORAL 08/18/20 18:00 11/16/20 17:59 09/06/20 08:00 Dextrose (Dextrose 50%) 25 ml Q30M PRN IV Hypoglycemia 08/18/20 11:45 11/16/20 11:44 Dextrose (Dextrose 50%) 50 ml Q30M PRN IV Hypoglycemia 08/18/20 11:45 11/16/20 11:44 Insulin Aspart (NovoLOG) BEFORE MEALS AND HS SUBQ 08/18/20 16:30 11/16/20 16:29 09/05/20 20:47 Nitroglycerin (Ntg) 0.4 mg Q5M PRN SL Prn Chest Pain 09/04/20 06:45 10/04/20 06:44 Ondansetron HCl (Zofran) 4 mg Q6H PRN IVP Nausea & Vomiting 08/17/20 19:45 09/16/20 19:44 Pantoprazole (Protonix) 40 mg DAILY ORAL 08/18/20 09:00 09/17/20 08:59 09/06/20 07:59 Polyethylene Glycol (Miralax) 17 gm DAILYPRN PRN ORAL Constipation 08/17/20 19:45 09/16/20 19:44 08/19/20 17:56 Potassium Chloride (K-Dur) 20 meq DAILY ORAL 08/29/20 12:45 11/27/20 12:44 09/06/20 08:00 Promethazine HCl/ Codeine (Phenergan with Codeine) 5 ml Q6H PRN ORAL cough 08/17/20 19:45 09/16/20 19:44 09/05/20 20:00 Tamsulosin HCl (Flomax) 0.4 mg BID ORAL 08/18/20 09:00 09/17/20 08:59 09/06/20 07:59 Aneta Nguyen M.D. Sep 06, 2020 08:51
--- NOTE | 2020-09-06 11:03 | Pulmonology Progress Note ---
Subjective ROS Limited/Unobtainable: Yes Allergies: Coded Allergies: No Known Allergies (Unverified , 01/04/19) Subjective no fevers, + leukocytosis on 100% NRM, sat 88-89% refused BiPAP prior CXR 09/05 no significant changes from before Objective Last 24 Hour Vital Signs Date Time Temp Pulse Resp B/P (MAP) Pulse Ox O2 Delivery O2 Flow Rate FiO2 09/06/20 09:00 Non-Rebreather 15.0 09/06/20 08:00 119 09/06/20 08:00 97.5 114 28 121/70 (87) 90 09/06/20 04:00 108 09/06/20 04:00 97.3 115 32 130/67 (88) 88 09/06/20 00:00 100 09/06/20 00:00 99.1 120 22 129/61 (83) 90 09/05/20 21:54 127 09/05/20 21:00 Non-Rebreather 15.0 09/05/20 20:00 118 09/05/20 20:00 98.8 123 25 119/64 (82) 90 09/05/20 19:46 92 Non-Rebreather 15.0 100 09/05/20 16:00 110 09/05/20 16:00 97.7 112 22 125/61 (82) 93 09/05/20 12:00 97.5 115 20 129/65 (86) 94 09/05/20 12:00 117 Intake and Output 09/05/20 09/06/20 19:00 07:00 Intake Total 240 ml 600 ml Output Total 200 ml Balance 240 ml 400 ml Intake Oral 240 ml 600 ml Output Urine Total 200 ml # Voids 1 # Bowel Movements 2 1 General Appearance: WD/WN HEENT: normocephalic, atraumatic, other - O2 via NRM Respiratory: chest wall non-tender, rhonchi - bilaterally - scattered Cardiovascular: normal peripheral pulses, normal rate, regular rhythm Abdomen: normal bowel sounds, soft, non tender Genitourinary: normal external genitalia Extremities: no clubbing Neurologic: alert, responsive, other - R side paresis Lymphatic: no neck adenopathy Musculoskeletal: atrophy - BLE Laboratory Tests 09/05/20 17:05: POC Whole Blood Glucose 145H 09/05/20 20:36: POC Whole Blood Glucose 157H 09/06/20 03:45: White Blood Count 17.1H, Red Blood Count 4.34L, Hemoglobin 11.9L, Hematocrit 38.7L, Mean Corpuscular Volume 89, Mean Corpuscular Hemoglobin 27.5, Mean Corpuscular Hemoglobin Concent 30.8L, Red Cell Distribution Width 14.4, Platelet Count 143L, Mean Platelet Volume 8.9, Neutrophils (%) (Auto) , Lymphocytes (%) (Auto) , Monocytes (%) (Auto) , Eosinophils (%) (Auto) , Basophils (%) (Auto) , Differential Total Cells Counted 100, Neutrophils % (Manual) 85H, Lymphocytes % (Manual) 9L, Monocytes % (Manual) 5, Eosinophils % (Manual) 1, Basophils % (Manual) 0, Band Neutrophils 0, Platelet Estimate DecreasedL, Platelet Mo rphology Normal, Hypochromasia 1+, Anisocytosis 1+, Erythrocyte Sedimentation Rate 71H, Sodium Level 143, Potassium Level 4.9, Chloride Level 107, Carbon Dioxide Level 33H, Blood Urea Nitrogen 21H, Creatinine 0.9, Estimat Glomerular Filtration Rate > 60, Glucose Level 155H, Calcium Level 9.4, Phosphorus Level 3.0, Magnesium Level 2.0, Total Bilirubin 0.8, Aspartate Amino Transf (AST/SGOT) 14L, Alanine Aminotransferase (ALT/SGPT) 12, Alkaline Phosphatase 75, C-Reactive Protein, Quantitative 48.3H, Total Protein 6.3L, Albumin 1.6L, Globulin 4.7, Albumin/Globulin Ratio 0.3L, Prealbumin [Pending] Current Medications Medications (Trade) Dose Ordered Sig/Amaya Route PRN Reason Start Time Stop Time Status Last Admin Dose Admin Acetaminophen (Tylenol) 650 mg Q4H PRN ORAL Mild Pain (Pain Scale 1-3) 09/04/20 10:00 10/04/20 09:59 Acetaminophen (Tylenol) 650 mg Q4H PRN ORAL Temp >100.5 09/04/20 10:00 10/04/20 09:59 Albuterol/ Ipratropium (Combivent Respimat) 1 puff Q4H PRN INH Shortness of Breath 08/18/20 13:00 09/17/20 12:59 09/05/20 19:59 Apixaban (Eliquis) 5 mg BID ORAL 08/18/20 18:00 11/16/20 17:59 09/06/20 08:00 Dextrose (Dextrose 50%) 25 ml Q30M PRN IV Hypoglycemia 08/18/20 11:45 11/16/20 11:44 Dextrose (Dextrose 50%) 50 ml Q30M PRN IV Hypoglycemia 08/18/20 11:45 11/16/20 11:44 Insulin Aspart (NovoLOG) BEFORE MEALS AND HS SUBQ 08/18/20 16:30 11/16/20 16:29 09/05/20 20:47 Nitroglycerin (Ntg) 0.4 mg Q5M PRN SL Prn Chest Pain 09/04/20 06:45 10/04/20 06:44 Ondansetron HCl (Zofran) 4 mg Q6H PRN IVP Nausea & Vomiting 08/17/20 19:45 09/16/20 19:44 Pantoprazole (Protonix) 40 mg DAILY ORAL 08/18/20 09:00 09/17/20 08:59 09/06/20 07:59 Polyethylene Glycol (Miralax) 17 gm DAILYPRN PRN ORAL Constipation 08/17/20 19:45 09/16/20 19:44 08/19/20 17:56 Promethazine HCl/ Codeine (Phenergan with Codeine) 5 ml Q6H PRN ORAL cough 08/17/20 19:45 09/16/20 19:44 09/05/20 20:00 Tamsulosin HCl (Flomax) 0.4 mg BID ORAL 08/18/20 09:00 09/17/20 08:59 09/06/20 07:59 Assessment/Plan Assessment/Plan ASSESSMENT COVID-19 pneumonia Acute hypoxemic respiratory failure, requiring NRM CATHERINE due to dehydration probably on CKD E. coli ESBL UTI HTN DM BPH Hx of CVA with R sided hemiparesis PLAN OF CARE tele supplemental O2, titrate to keep pulse ox above 90% pulmonary toilet s/p remdesivir x 5 days completed steroids for total of 10 days prior refused BiPAP, now on NRM 88- 89%, no more HFO2 currently available a/c with Eliquis a/tussive prn f/up with CXR trend inflammatory markers: CRP triple over the last 3 days 16.3-> 48.3 started on abx per ID , given leukocytosis abx for prior UTI -> completed GI prophylaxis CATHERINE- resolved , likely was due to dehydration renal US noted BP stable ; off anti/HTN at this time BS management with SSI continue Flomax supportive care recommend continue to discuss GOC case discussed and evaluated by supervising physician Krystal Sherman NP Sep 06, 2020 11:03 Michele Wilson MD Sep 06, 2020 19:44
--- NOTE | 2020-09-06 11:15 | NUR ---
CASE MANAGEMENT:REVIEW 09/06/2020 SI: COVID INFECTION. HYPOXIA T 97.5 HR 115 RR 28 B/P 121/70 SATS 90% ON 15L/NRB LABS: WBC 17.1 CO2 33 BUN 21 GLU 155 AST 14 IS: K-DUR PO QD ELIQUIS PO BID FLOMAX PO BID PROTONIX PO QD : TELEMETRY STATUS DCP: FROM [facility] PLAN: TITRATE OXYGEN
--- NOTE | 2020-09-06 11:23 | NUR ---
NURSE NOTES: Pt sats noted 88-89% on NRM, HR 110-117bpm, more short of breath with subcostal retractions. Spoke with patient regarding use of BIPAP machine and he agreed, Krystal Sherman MIXER HELPER notified. RT notified and pt placed on BIPAP.
[2020-09-06] MEDS: Meropenem 1 GM in NS 55 ML IVPB SCH ×2 (11:36→22:00)
--- NOTE | 2020-09-06 11:56 | NUR ---
NURSE NOTES: O2 sats 91-92% on Bipap, patient is more awake. HR 111-116bpm.
--- NOTE | 2020-09-06 13:03 | Surgery Progress Note ---
Surgery Progress Note Subjective Additional Comments leukocytosis afebrile tachycardic dressings going well. not much intake o2 better Objective Last 24 Hour Vital Signs Date Time Temp Pulse Resp B/P (MAP) Pulse Ox O2 Delivery O2 Flow Rate FiO2 09/06/20 12:00 97.5 115 26 122/61 (81) 95 09/06/20 11:20 121 21 91 Bi-Pap 100 09/06/20 11:20 124 27 91 100 09/06/20 09:00 Non-Rebreather 15.0 09/06/20 08:00 119 09/06/20 08:00 97.5 114 28 121/70 (87) 90 09/06/20 04:00 108 09/06/20 04:00 97.3 115 32 130/67 (88) 88 09/06/20 00:00 100 09/06/20 00:00 99.1 120 22 129/61 (83) 90 09/05/20 21:54 127 09/05/20 21:00 Non-Rebreather 15.0 09/05/20 20:00 118 09/05/20 20:00 98.8 123 25 119/64 (82) 90 09/05/20 19:46 92 Non-Rebreather 15.0 100 09/05/20 16:00 110 09/05/20 16:00 97.7 112 22 125/61 (82) 93 I&O Intake and Output 09/05/20 09/06/20 19:00 07:00 Intake Total 240 ml 600 ml Output Total 200 ml Balance 240 ml 400 ml Intake Oral 240 ml 600 ml Output Urine Total 200 ml # Voids 1 # Bowel Movements 2 1 Dressing: other Wound: other Cardiovascular: RSR Respiratory: decreased breath sounds Abdomen: soft, non-tender, present bowel sounds, non-distended Extremities: no tenderness, no cyanosis Laboratory Tests Test 09/05/20 17:05 09/05/20 20:36 09/06/20 03:45 09/06/20 11:42 POC Whole Blood Glucose 145 MG/DL (74-106) H 157 MG/DL (74-106) H 152 MG/DL (74-106) H White Blood Count 17.1 K/UL (4.8-10.8) H Red Blood Count 4.34 M/UL (4.70-6.10) L Hemoglobin 11.9 G/DL (14.2-18.0) L Hematocrit 38.7 % (42.0-52.0) L Mean Corpuscular Volume 89 FL (80-99) Mean Corpuscular Hemoglobin 27.5 PG (27.0-31.0) Mean Corpuscular Hemoglobin Concent 30.8 G/DL (32.0-36.0) L Red Cell Distribution Width 14.4 % (11.6-14.8) Platelet Count 143 K/UL (150-450) L Mean Platelet Volume 8.9 FL (6.5-10.1) Neutrophils (%) (Auto) % (45.0-75.0) Lymphocytes (%) (Auto) % (20.0-45.0) Monocytes (%) (Auto) % (1.0-10.0) Eosinophils (%) (Auto) % (0.0-3.0) Basophils (%) (Auto) % (0.0-2.0) Differential Total Cells Counted 100 Neutrophils % (Manual) 85 % (45-75) H Lymphocytes % (Manual) 9 % (20-45) L Monocytes % (Manual) 5 % (1-10) Eosinophils % (Manual) 1 % (0-3) Basophils % (Manual) 0 % (0-2) Band Neutrophils 0 % (0-8) Platelet Estimate Decreased L Platelet Morphology Normal Hypochromasia 1+ Anisocytosis 1+ Erythrocyte Sedimentation Rate 71 MM/HR (0-20) H Sodium Level 143 MMOL/L (136-145) Potassium Level 4.9 MMOL/L (3.5-5.1) Chloride Level 107 MMOL/L (98-107) Carbon Dioxide Level 33 MMOL/L (21-32) H Blood Urea Nitrogen 21 mg/dL (7-18) H Creatinine 0.9 MG/DL (0.55-1.30) Estimat Glomerular Filtration Rate > 60 mL/min (>60) Glucose Level 155 MG/DL (74-106) H Calcium Level 9.4 MG/DL (8.5-10.1) Phosphorus Level 3.0 MG/DL (2.5-4.9) Magnesium Level 2.0 MG/DL (1.8-2.4) Total Bilirubin 0.8 MG/DL (0.2-1.0) Aspartate Amino Transf (AST/SGOT) 14 U/L (15-37) L Alanine Aminotransferase (ALT/SGPT) 12 U/L (12-78) Alkaline Phosphatase 75 U/L (46-116) C-Reactive Protein, Quantitative 48.3 mg/dL (0.00-0.90) H Total Protein 6.3 G/DL (6.4-8.2) L Albumin 1.6 G/DL (3.4-5.0) L Globulin 4.7 g/dL Albumin/Globulin Ratio 0.3 (1.0-2.7) L Prealbumin Pending Plan Problems: (1) Renal failure (ARF), acute on chronic (2) Hypoalbuminemia Assessment & Plan: leukocytosis critically ill alb trending down diet given unfortunately potential inevitable decline discussed with nursing staff cont plan of care and close monitoring (3) Nosocomial pneumonia (4) Diabetes mellitus (5) Sepsis due to urinary tract infection (6) Episode of generalized weakness (7) UTI (urinary tract infection) (8) Hypertension (9) Chronic constipation (10) Renal failure (ARF), acute on chronic (11) Cerebrovascular accident (CVA) (12) Incontinence (13) MRSA (methicillin resistant Staphylococcus aureus) infection (14) Multiple polyps of sigmoid colon (15) Decubitus skin ulcer Assessment & Plan: Pt presented on admission with Multiple skin breakdown. Pt exhibited hostility,and was initially not receptive to having skin assessed by wound nurses. Pt was informed wound nurses were there to assess wound on his buttocks. Pt reluctantly consented to having skin assessed. Partial Thickness shearing noted to Sacrum. Base of wound is moist and viable. Non-Blanchable erythema without elevation in skin temp ,induration or fluctuance. Scrotum is erythematous. Non-Blanchable erythema without erythema,induration, or fluctuance R Heel. (L)9cm x (W)5cm. Non-Blanchable erythema without erythema, induration or fluctuance L Heel(L05cm x (W)9cm. PT was educated on wound prevention. Pt informed of risks for further skin decline if Pressure is not being relieved. PT again became hostile and accused staff of Prioritizing his needs. Pt demanded staff get him a book which he informed staff had been delivered downstairs and left with him manager. Primary nurse present and is aware of pt's demands. Wound nurse again attempted to educate pt on wound prevention but pt dismissive of staff. Primary nurse reported pt is resisitive to being repositioned. Partial Thickness Pressure injury Sacrum (L)1cm x (W)0.6cm. Base of wound is moist and viable with surrounding non-blanchable erythema. No evidence of induration or changes n skin temp noted. Pt resistive to being repositioned. Pt has been educated of risks for further skin decline if pressure is not being relieved off buttocks. Pt then allowed staff to reposition on R side. Scrotum is erythematous. Pt noted to have bladder incontinence. When Urinal placed within reach and encouraged to use urinal, Pt expressed preference to wearing condom Cath. R heel is boggy with non-blanchable erythema. L Heel is boggy with Non-Blanchable erythema. Rubor noted to plantar aspects of both feet. Non-Blanchable erythema L 1st metatarsal head. Tx.Plan: Apply Moisture Barrier Paste to Sacrum. Cover with Optifoam drsg. Change every 3 days and prn. Apply Moisture Barrier Paste to Scrotum with each incontinence care. Apply Cavilon Skin Barrier to both heels and head L 1st metatarsal. Cover each heel with Optifoam drsg. Change every 7 days and prn. Reposition at least every 2hours or as tolerated. Off-load heels with pillow. Nutritional optimization DAILY ESTIMATED NEEDS: Needs based on DM, pulmonary 74kg 25-35 kcals/kg 5691-4660 total kcals 1.25-1.5 g protein/kg 93-111 g total protein 20-25 mL/kg 2868-6798 total fluid mLs NUTRITION DIAGNOSIS: Altered nutrition related lab values r/t hyperglycemia as evidenced by A1C 6.1, BG 149-155, elevated POC (166-182). 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
--- NOTE | 2020-09-06 13:37 | General Progress Note ---
Subjective Date patient seen: Sep 06, 2020 Time patient seen: 01:00 - pm Allergies: Coded Allergies: No Known Allergies (Unverified , 01/04/19) Subjective HISTORY OF PRESENT ILLNESS: This is an 85-year-old male who is being seen on the telemetry floor of [facility]. Patient placed on Bipap. No signs of pain. REVIEW OF SYSTEMS: Unable to obtain given patient's status. Objective Last 24 Hour Vital Signs Date Time Temp Pulse Resp B/P (MAP) Pulse Ox O2 Delivery O2 Flow Rate FiO2 09/06/20 12:00 97.5 115 26 122/61 (81) 95 09/06/20 11:20 121 21 91 Bi-Pap 100 09/06/20 11:20 124 27 91 100 09/06/20 09:00 Non-Rebreather 15.0 09/06/20 08:00 119 09/06/20 08:00 97.5 114 28 121/70 (87) 90 09/06/20 04:00 108 09/06/20 04:00 97.3 115 32 130/67 (88) 88 09/06/20 00:00 100 09/06/20 00:00 99.1 120 22 129/61 (83) 90 09/05/20 21:54 127 09/05/20 21:00 Non-Rebreather 15.0 09/05/20 20:00 118 09/05/20 20:00 98.8 123 25 119/64 (82) 90 09/05/20 19:46 92 Non-Rebreather 15.0 100 09/05/20 16:00 110 09/05/20 16:00 97.7 112 22 125/61 (82) 93 Intake and Output 09/05/20 09/06/20 19:00 07:00 Intake Total 240 ml 600 ml Output Total 200 ml Balance 240 ml 400 ml Intake Oral 240 ml 600 ml Output Urine Total 200 ml # Voids 1 # Bowel Movements 2 1 Laboratory Tests 09/05/20 17:05: POC Whole Blood Glucose 145H 09/05/20 20:36: POC Whole Blood Glucose 157H 09/06/20 03:45: White Blood Count 17.1H, Red Blood Count 4.34L, Hemoglobin 11.9L, Hematocrit 38.7L, Mean Corpuscular Volume 89, Mean Corpuscular Hemoglobin 27.5, Mean Corpuscular Hemoglobin Concent 30.8L, Red Cell Distribution Width 14.4, Platelet Count 143L, Mean Platelet Volume 8.9, Neutrophils (%) (Auto) , Lymphocytes (%) (Auto) , Monocytes (%) (Auto) , Eosinophils (%) (Auto) , Basophils (%) (Auto) , Differential Total Cells Counted 100, Neutrophils % (Manual) 85H, Lymphocytes % (Manual) 9L, Monocytes % (Manual) 5, Eosinophils % (Manual) 1, Basophils % (Manual) 0, Band Neutrophils 0, Platelet Estimate DecreasedL, Platelet Morphology Normal, Hypochromasia 1+, Anisocytosis 1+, Erythrocyte Sedimentation Rate 71H, Sodium Level 143, Potassium Level 4.9, Chloride Level 107, Carbon Dioxide Level 33H, Blood Urea Nitrogen 21H, Creatinine 0.9, Estimat Glomerular Filtration Rate > 60, Glucose Level 155H, Calcium Level 9.4, Phosphorus Level 3.0, Magnesium Level 2.0, Total Bilirubin 0.8, Aspartate Amino Transf (AST/SGOT) 14L, Alanine Aminotransferase (ALT/SGPT) 12, Alkaline Phosphatase 75, C-Reactive Protein, Quantitative 48.3H, Total Protein 6.3L, Albumin 1.6L, Globulin 4.7, Albumin/Globulin Ratio 0.3L, Prealbumin [Pending] 09/06/20 11:42: POC Whole Blood Glucose 152H Height (Feet): 5 Height (Inches): 8.00 Weight (Pounds): 163 Objective PHYSICAL EXAMINATION: GENERAL: Alert, awake. LUNGS: Decreased breath sounds bilaterally. HEART: S1 and S2 regular. ABDOMEN: Soft, nontender. EXTREMITIES: No cyanosis. No clubbing. NEURO: No changes. Assessment/Plan Assessment/Plan: (1) DJD (2) Covid 19+ Patient to be continued on Tylenol D/w Dr. Henao and he concurred Vidal Gaona Sep 06, 2020 13:37
--- NOTE | 2020-09-06 14:00 | NUR ---
NURSE NOTES: Dr. Zuniga saw patient on rounds, updated of patient's status and asked to assess if pt may receive IV fluids pending ST re-evaluation. says he will review chart and put in orders as needed.
--- NOTE | 2020-09-06 14:05 | NUR ---
NURSE NOTES: Dr. Wilson made rounds, updated that pt now hooked to bipap machine. Per MD patient needs continouus bipap, received orders to transfer to SDU. Orders noted and carried out.
--- NOTE | 2020-09-06 14:23 | Cardiac Electrophysiology PN ---
Assessment/Plan Assessment/Plan 1. COVID-19 pneumonia. S/P Remdesevir and dexamethasone On apixaban 5 bid, iv Abx and BIPAP 2. Hypertension. Stable off antihypertensive agents. 3. Diabetes. 4. History of CVA with hemiparesis. 5. Benign prostatic hypertrophy. 6. Neno with HR high 40s, likely due to Covid. Asymptomatic 7. Right pleural effusion. Thoracentesis not done as not enough fluid 8. CP. Pleuritic. No OH. ECG unchanged DW RN Subjective Subjective Agreed to BIPAP. In Sr Objective Last 24 Hour Vital Signs Date Time Temp Pulse Resp B/P (MAP) Pulse Ox O2 Delivery O2 Flow Rate FiO2 09/06/20 12:00 97.5 115 26 122/61 (81) 95 09/06/20 11:20 121 21 91 Bi-Pap 100 09/06/20 11:20 124 27 91 100 09/06/20 09:00 Non-Rebreather 15.0 09/06/20 08:00 119 09/06/20 08:00 97.5 114 28 121/70 (87) 90 09/06/20 04:00 108 09/06/20 04:00 97.3 115 32 130/67 (88) 88 09/06/20 00:00 100 09/06/20 00:00 99.1 120 22 129/61 (83) 90 09/05/20 21:54 127 09/05/20 21:00 Non-Rebreather 15.0 09/05/20 20:00 118 09/05/20 20:00 98.8 123 25 119/64 (82) 90 09/05/20 19:46 92 Non-Rebreather 15.0 100 09/05/20 16:00 110 09/05/20 16:00 97.7 112 22 125/61 (82) 93 Intake and Output 09/05/20 09/06/20 19:00 07:00 Intake Total 240 ml 600 ml Output Total 200 ml Balance 240 ml 400 ml Intake Oral 240 ml 600 ml Output Urine Total 200 ml # Voids 1 # Bowel Movements 2 1 Laboratory Tests Test 09/05/20 17:05 09/05/20 20:36 09/06/20 03:45 09/06/20 11:42 POC Whole Blood Glucose 145 MG/DL (74-106) H 157 MG/DL (74-106) H 152 MG/DL (74-106) H White Blood Count 17.1 K/UL (4.8-10.8) H Red Blood Count 4.34 M/UL (4.70-6.10) L Hemoglobin 11.9 G/DL (14.2-18.0) L Hematocrit 38.7 % (42.0-52.0) L Mean Corpuscular Volume 89 FL (80-99) Mean Corpuscular Hemoglobin 27.5 PG (27.0-31.0) Mean Corpuscular Hemoglobin Concent 30.8 G/DL (32.0-36.0) L Red Cell Distribution Width 14.4 % (11.6-14.8) Platelet Count 143 K/UL (150-450) L Mean Platelet Volume 8.9 FL (6.5-10.1) Neutrophils (%) (Auto) % (45.0-75.0) Lymphocytes (%) (Auto) % (20.0-45.0) Monocytes (%) (Auto) % (1.0-10.0) Eosinophils (%) (Auto) % (0.0-3.0) Basophils (%) (Auto) % (0.0-2.0) Differential Total Cells Counted 100 Neutrophils % (Manual) 85 % (45-75) H Lymphocytes % (Manual) 9 % (20-45) L Monocytes % (Manual) 5 % (1-10) Eosinophils % (Manual) 1 % (0-3) Basophils % (Manual) 0 % (0-2) Band Neutrophils 0 % (0-8) Platelet Estimate Decreased L Platelet Morphology Normal Hypochromasia 1+ Anisocytosis 1+ Erythrocyte Sedimentation Rate 71 MM/HR (0-20) H Sodium Level 143 MMOL/L (136-145) Potassium Level 4.9 MMOL/L (3.5-5.1) Chloride Level 107 MMOL/L (98-107) Carbon Dioxide Level 33 MMOL/L (21-32) H Blood Urea Nitrogen 21 mg/dL (7-18) H Creatinine 0.9 MG/DL (0.55-1.30) Estimat Glomerular Filtration Rate > 60 mL/min (>60) Glucose Level 155 MG/DL (74-106) H Calcium Level 9.4 MG/DL (8.5-10.1) Phosphorus Level 3.0 MG/DL (2.5-4.9) Magnesium Level 2.0 MG/DL (1.8-2.4) Total Bilirubin 0.8 MG/DL (0.2-1.0) Aspartate Amino Transf (AST/SGOT) 14 U/L (15-37) L Alanine Aminotransferase (ALT/SGPT) 12 U/L (12-78) Alkaline Phosphatase 75 U/L (46-116) C-Reactive Protein, Quantitative 48.3 mg/dL (0.00-0.90) H Total Protein 6.3 G/DL (6.4-8.2) L Albumin 1.6 G/DL (3.4-5.0) L Globulin 4.7 g/dL Albumin/Globulin Ratio 0.3 (1.0-2.7) L Prealbumin Pending Objective HEAD AND NECK: No JVD. On NRB FM LUNGS: Coarse rhonchi. CARDIOVASCULAR: Regular S1 and S2 with no gallop or murmur. ABDOMEN: Soft. EXTREMITIES: No pitting edema. Sabino Goncalves MD Sep 06, 2020 14:23
--- NOTE | 2020-09-06 14:24 | NUR ---
NURSE NOTES: Dr. Tipton, primary MD updated re: pt's transfer orders to SDU. Also notified Dr. Tipton that pt was coughing and desaturating when I assisted him with meals. Awaiting response.
--- NOTE | 2020-09-06 17:11 | Nephrology Progress Note ---
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 Hypertension Diabetes, hypoalbuminemia BPH Plan September 06: Patient on BiPAP. Discussed with RN. Labs reviewed. Renal parameters stable. Patient full code. Continue per consultants. September 05: Labs reviewed. Renal parameters stable. White blood cell 16.2. Remains on nonrebreather mask. Full code. Per consultants. September 04: Labs reviewed. Renal parameters are stable. On nonrebreather mask. Continue per consultants. September 03: Labs reviewed. Renal parameters stable. Continue per consultants September 02: Labs reviewed. On nonrebreather mask. Low phosphorus noted and addressed. September 01: No labs drawn today. Remains on nonrebreather mask. Will order lab tomorrow. Continue to monitor renal parameters and electrolytes. Continue per consultants. August 31: Labs reviewed. Remains on Venturi mask. Full code. Continue to monitor renal parameters. August 30: No CHEM panel drawn today. Remains full code. On nonrebreather mask. Continue to monitor renal parameters. August 29: Labs reviewed. Abnormal electrolyte addressed. Continue per consultants. August 28: Labs reviewed. Magnesium and phosphorus replacement ordered. Continue per consultants. August 27: No labs drawn today. Continue per consultants. Will check lab in a.m. August 26: White blood cells 14.9. Renal parameters stable. Continue per consultants. August 25: [place] [address]. Renal parameters stable. August 24: Status quo. No labs drawn today. Will check lab tomorrow. August 23: Status quo. Labs reviewed. Renal parameters are stable. Continue per consultants. August 22: Status quo. Stable renal parameters. Continue per consultants. August 21: Labs were reviewed. Renal parameters are stable. Continue per consultants. August 20: Labs reviewed. Creatinine now normalized. Electrolytes within normal limit. Continue per consultants. Antibiotics Slow hydrate with normal saline Monitor renal parameters Keep the blood pressure blood sugar in check Per orders Subjective ROS Limited/Unobtainable: Yes Objective Objective Last 24 Hour Vital Signs Date Time Temp Pulse Resp B/P (MAP) Pulse Ox O2 Delivery O2 Flow Rate FiO2 09/06/20 16:00 116 09/06/20 14:51 114 19 95 100 09/06/20 14:00 109 09/06/20 12:00 97.5 115 26 122/61 (81) 95 09/06/20 11:20 121 21 91 Bi-Pap 100 09/06/20 11:20 124 27 91 100 09/06/20 09:00 Non-Rebreather 15.0 09/06/20 08:00 119 09/06/20 08:00 97.5 114 28 121/70 (87) 90 09/06/20 04:00 108 09/06/20 04:00 97.3 115 32 130/67 (88) 88 09/06/20 00:00 100 09/06/20 00:00 99.1 120 22 129/61 (83) 90 09/05/20 21:54 127 09/05/20 21:00 Non-Rebreather 15.0 09/05/20 20:00 118 09/05/20 20:00 98.8 123 25 119/64 (82) 90 09/05/20 19:46 92 Non-Rebreather 15.0 100 Intake and Output 09/05/20 09/06/20 19:00 07:00 Intake Total 240 ml 600 ml Output Total 200 ml Balance 240 ml 400 ml Intake Oral 240 ml 600 ml Output Urine Total 200 ml # Voids 1 # Bowel Movements 2 1 Laboratory Tests 09/05/20 20:36: POC Whole Blood Glucose 157H 09/06/20 03:45: White Blood Count 17.1H, Red Blood Count 4.34L, Hemoglobin 11.9L, Hematocrit 38 .7L, Mean Corpuscular Volume 89, Mean Corpuscular Hemoglobin 27.5, Mean Corpuscular Hemoglobin Concent 30.8L, Red Cell Distribution Width 14.4, Platelet Count 143L, Mean Platelet Volume 8.9, Neutrophils (%) (Auto) , Lymphocytes (%) (Auto) , Monocytes (%) (Auto) , Eosinophils (%) (Auto) , Basophils (%) (Auto) , Differential Total Cells Counted 100, Neutrophils % (Manual) 85H, Lymphocytes % (Manual) 9L, Monocytes % (Manual) 5, Eosinophils % (Manual) 1, Basophils % (Manual) 0, Band Neutrophils 0, Platelet Estimate DecreasedL, Platelet Morphology Normal, Hypochromasia 1+, Anisocytosis 1+, Erythrocyte Sedimentation Rate 71H, Sodium Level 143, Potassium Level 4.9, Chloride Level 107, Carbon Dioxide Level 33H, Blood Urea Nitrogen 21H, Creatinine 0.9, Estimat Glomerular Filtration Rate > 60, Glucose Level 155H, Calcium Level 9.4, Phosphorus Level 3.0, Magnesium Level 2.0, Total Bilirubin 0.8, Aspartate Amino Transf (AST/SGOT) 14L, Alanine Aminotransferase (ALT/SGPT) 12, Alkaline Phosphatase 75, C-Reactive Protein, Quantitative 48.3H, Total Protein 6.3L, Albumin 1.6L, Globulin 4.7, Albumin/Globulin Ratio 0.3L, Prealbumin [Pending] 09/06/20 11:42: POC Whole Blood Glucose 152H Height (Feet): 5 Height (Inches): 8.00 Weight (Pounds): 163 General Appearance: mild distress EENT: other - On BiPAP Cardiovascular: tachycardia Respiratory/Chest: decreased breath sounds Abdomen: distended Objective No change Devonte Zuniga MD Sep 06, 2020 17:11
--- NOTE | 2020-09-06 17:44 | NUR ---
NURSE NOTES: Dr. Headley covering for Dr. Tipton, received orders for ST re-evaluation due to high aspiration risk, defer IV fluid orders to camera assembler or teacher assistant. Dr. Zuniga is already aware.
[2020-09-06] MEDS ORDERED: Varibar Honey 250ml MC PRN (18:15)
[2020-09-06] MEDS ORDERED: Varibar Nectar 240ml MC PRN (18:15)
[2020-09-06] MEDS ORDERED: Varibar Pudding 230ml MC PRN (18:15)
[2020-09-06] MEDS ORDERED: Varibar Thin Liquid powder 148gm MC PRN (18:15)
--- NOTE | 2020-09-06 19:16 | NUR ---
NURSE NOTES: Patient received from Елена ADAMS. Patient alert and oriented x4. Noted to be tachycardic aware as well as for labs per previous nurse. Patient saturating at 93% on continuos bipap awaiting available room to be transferred at SDU, order is in. IV site patent and intact on Right FA 22G SL. Bed in lowest position and locked. Call light and bedside table within reach.
--- NOTE | 2020-09-06 19:49 | NUR ---
NURSE NOTES: Spoke to deck supervisor about patient;s transfer. Still no beds available in SDU or ICU. awaiting for bed. Will transfer patient as soon as available.
--- NOTE | 2020-09-06 20:08 | General Progress Note ---
Subjective ROS Limited/Unobtainable: Yes Allergies: Coded Allergies: No Known Allergies (Unverified , 01/04/19) Objective Last 24 Hour Vital Signs Date Time Temp Pulse Resp B/P (MAP) Pulse Ox O2 Delivery O2 Flow Rate FiO2 09/06/20 19:38 123 25 94 100 09/06/20 17:33 124 23 94 100 09/06/20 16:00 116 09/06/20 16:00 97.4 117 24 118/65 (82) 93 09/06/20 14:51 114 19 95 100 09/06/20 14:00 109 09/06/20 12:00 97.5 115 26 122/61 (81) 95 09/06/20 11:20 121 21 91 Bi-Pap 100 09/06/20 11:20 124 27 91 100 09/06/20 09:00 Non-Rebreather 15.0 09/06/20 08:00 119 09/06/20 08:00 97.5 114 28 121/70 (87) 90 09/06/20 04:00 108 09/06/20 04:00 97.3 115 32 130/67 (88) 88 09/06/20 00:00 100 09/06/20 00:00 99.1 120 22 129/61 (83) 90 09/05/20 21:54 127 09/05/20 21:00 Non-Rebreather 15.0 Intake and Output 09/05/20 09/06/20 19:00 07:00 Intake Total 240 ml 600 ml Output Total 200 ml Balance 240 ml 400 ml Intake Oral 240 ml 600 ml Output Urine Total 200 ml # Voids 1 # Bowel Movements 2 1 Laboratory Tests 09/05/20 20:36: POC Whole Blood Glucose 157H 09/06/20 03:45: White Blood Count 17.1H, Red Blood Count 4.34L, Hemoglobin 11.9L, Hematocrit 38.7L, Mean Corpuscular Volume 89, Mean Corpuscular Hemoglobin 27.5, Mean Corpuscular Hemoglobin Concent 30.8L, Red Cell Distribution Width 14.4, Platelet Count 143L, Mean Platelet Volume 8.9, Neutrophils (%) (Auto) , Lymphocytes (%) (Auto) , Monocytes (%) (Auto) , Eosinophils (%) (Auto) , Basophils (%) (Auto) , Differential Total Cells Counted 100, Neutrophils % (Manual) 85H, Lymphocytes % (Manual) 9L, Monocytes % (Manual) 5, Eosinophils % (Manual) 1, Basophils % (Manual) 0, Band Neutrophils 0, Platelet Estimate DecreasedL, Platelet Morphology Normal, Hypochromasia 1+, Anisocytosis 1+, Erythrocyte Sedimentation Rate 71H, Sodium Level 143, Potassium Level 4.9, Chloride Level 107, Carbon Dioxide Level 33H, Blood Urea Nitrogen 21H, Creatinine 0.9, Estimat Glomerular Filtration Rate > 60, Glucose Level 155H, Calcium Level 9.4, Phosphorus Level 3.0, Magnesium Level 2.0, Total Bilirubin 0.8, Aspartate Amino Transf (AST/SGOT) 14L, Alanine Aminotransferase (ALT/SGPT) 12, Alkaline Phosphatase 75, C-Reactive Protein, Quantitative 48.3H, Total Protein 6.3L, Albumin 1.6L, Globulin 4.7, Albumin/Globulin Ratio 0.3L, Prealbumin [Pending] 09/06/20 11:42: POC Whole Blood Glucose 152H Height (Feet): 5 Height (Inches): 8.00 Weight (Pounds): 163 Assessment/Plan Problem List: (1) Renal failure (ARF), acute on chronic ICD Codes: N17.9 - Acute kidney failure, unspecified; N18.9 - Chronic kidney disease, unspecified SNOMED: 257351511 (2) Diabetes mellitus ICD Codes: E11.9 - Type 2 diabetes mellitus without complications SNOMED: 40808103 (3) Sepsis due to urinary tract infection ICD Codes: A41.9 - Sepsis, unspecified organism; N39.0 - Urinary tract infection, site not specified SNOMED: 407079231 (4) Episode of generalized weakness ICD Codes: R53.1 - Weakness SNOMED: 27648962 (5) Renal failure (ARF), acute on chronic ICD Codes: N17.9 - Acute kidney failure, unspecified; N18.9 - Chronic kidney disease, unspecified SNOMED: 775505993 (6) CVA, old, hemiparesis ICD Codes: I69.359 - Hemiplegia and hemiparesis following cerebral infarction affecting unspecified side SNOMED: 730371572 (7) Hypoxia ICD Codes: R09.02 - Hypoxemia SNOMED: 645127692 (8) 2019 novel coronavirus detected ICD Codes: U07.1 - COVID-19 SNOMED: 4637213280143145 (9) BPH (benign prostatic hyperplasia) ICD Codes: N40.0 - Benign prostatic hyperplasia without lower urinary tract symptoms SNOMED: 740047281 Assessment/Plan: covid positive azotemia resp insuff weak afebrile Jose David Headley MD Sep 06, 2020 20:08
--- NOTE | 2020-09-06 21:30 | NUR ---
NURSE NOTES: received pt from tele as celia laurie flow c/o resp distress pt awake and alert and alertx4 on b-pap 20/ 100% fio2 o2 [id number] % no c/o of pain or sob complete bed bath oral care had incont of stool and urine reposition and suction diego cath -bedside drinage
--- NOTE | 2020-09-06 22:00 | NUR ---
NURSE NOTES: Transferred to ICU as SDU overflow and report given to Christiano ADAMS. All belongings accounted for.
[2020-09-07] VITALS (14 sets, daily range): BP systolic 0–147; BP diastolic 0–79
--- NOTE | 2020-09-07 02:00 | NUR ---
NURSE NOTES: Patient remains in BIPAP at this time, patient looks more lethargic than when he arrived. Patient sblood pressures stable.
--- NOTE | 2020-09-07 04:50 | NUR ---
NURSE NOTES: Patient starting to desaturated into the 60s and patients HR dropping into the 60s-50s, patient still has pulses, STAT ABG performed.
--- NOTE | 2020-09-07 04:56 | NUR ---
CODE BLUE: Patient went PEA/ CPR started. See Code sheet which remains on paper.
[2020-09-07] MEDS ORDERED: Atropine Inj 1mg/10ml Syr ONE (05:13)
[2020-09-07] MEDS ORDERED: Magnesium Sulfate 2ml Inj ONE ×2 (05:13)
[2020-09-07] MEDS ORDERED: Sodium Bicarbonate 8.4% 50ml Inj ONE (05:13)
--- NOTE | 2020-09-07 05:14 | NUR ---
NURSE NOTES: Pronounce patients . patient Coded twice. Patients sister Terri was called and notified of patients .
--- NOTE | 2020-09-07 05:29 | Emergency Room Report ---
History of Present Illness General Chief Complaint: Dyspnea/Respdistress Source: Medical Record, PMD Present Illness HPI I responded to CODE BLUE in ICU. According to the nurse, patient went bradycardic and then went into PEA arrest. He was admitted for COVID 19 hypoxic respiratory failure. ABG with severe hypercapnai and hypoxia. 2 atropine and 3 rounds of epinephrine had already been administered prior to my arrival. Patient was being bagged by RT. Pupils fixed and dilated. I intubated patient with VL for airway control. 3 additional rounds of CPR were performed. epi, bicarb given. Unfortunately patient . Procedure note Cardiopulmonary Resuscitation by me: See code documentation for specific details. ACLS and BLS were performed with high quality chest compressions and minimal interruptions. Any reversible causes were assessed and treated. Indication: Pulseless/CODE BLUE Informed consent: Patient unable to consent and no DNR status on record Procedure: Cardiac compressions were performed by staff in order to sustain blood flow under my direct supervision. The patient was ventilated and oxygenated. The patient received appropriate ACLS measures and they were repeated as necessary. Findings: Patient had NO return of spontaneous circulation Please see nursing documentation for meds given and time of . Primary team notified. Procedure Note: Endotracheal Intubation by me: Pre assessment performed. See preceding note for details. Pre-oxygenation performed with 100% oxygen RSI: Performed w/o complication or hypoxic events. Medications as ordered. Emergency Endotracheal Intubation: Consent unable to be obtained due to emergent nature of procedure and airway assessment this patient was prepared for endotracheal intubation with preoxygenation and airway positioning. The patient underwent rapid sequence induction and endotracheal intubation utilizing direct visualization laryngoscopy. The endotracheal tube was placed between the vocal cords and placement was confirmed with fogging of the tube, end title CO2, and equal bilateral chest rise as well as absence of borborygmi over the epigastrium. Chest x-ray was obtained for final confirmation. There were no complications. Blade: VL 4.0 ET Tube: 7.5 cm Depth: 23 cm at the lip Complications: No hypoxic events or bradycardia Intubation confirmed by colorimetric CO2, equal breath sounds, quiet over the stomach. Intubated with full C spine precautions, with the assistance of soil conservation aide. 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 COVID-19 Screening: Positive COVID-19 COVID-19 Testing Source: 08/17/20 Nursing Documentation-PMH Past Medical History: No History, Except For Hx Cardiac Problems: Yes - Anemia Hx Hypertension: Yes Hx Diabetes: Yes Hx Cancer: No Hx Gastrointestinal Problems: Yes - GERD Hx Neurological Problems: No Hx Cerebrovascular Accident: Yes - right sided deficit Physical Exam Vital Signs Date Time Temp Pulse Resp B/P (MAP) Pulse Ox O2 Delivery O2 Flow Rate FiO2 09/03/20 07:00 96 Non-Rebreather 15.0 100 09/03/20 08:00 97.6 100 22 108/48 (68) Sp02 EP Interpretation: abnormal Medical Decision Making Diagnostic Impression: Primary Impression: 2019 novel coronavirus detected Additional Impressions: Hypoxia CVA, old, hemiparesis Hypercapnic respiratory failure Last Vital Signs Date Time Temp Pulse Resp B/P (MAP) Pulse Ox O2 Delivery O2 Flow Rate FiO2 09/07/20 01:00 127 33 131/70 (90) 92 09/07/20 00:00 Bi-pap 09/06/20 22:09 98.0 09/06/20 19:38 100 09/06/20 09:00 15.0 Disposition: Admit Decision Time: 05:14 Condition: Referrals: Chris Tipton DO (PCP) Marci Carreon D.O. Sep 07, 2020 05:29
--- NOTE | 2020-09-07 05:45 | NUR ---
NURSE NOTES: [facility] [place] [facility] were called.
--- NOTE | 2020-09-09 14:16 | Discharge Summary ---
Discharge Summary Discharge Summary _ SUMMARY: DATE OF ADMISSION: 08/17/2020 DATE O EXPIRATION: 09/07/2020 REASON FOR ADMISSION: 85 years old male , resident of senior care facility, with past medical history of hypertension, diabetes mellitus, GERD, history of CVA with right- sided deficit, recently tested positive for coronavirus at the facility. Patient was sent for evaluation due to decreased oxygen saturation. Patient started on supplemental oxygen by paramedics. Upon evaluation in ED no leukocytosis , stable hemoglobin, hematocrit and deborah telet count . Urinalysis showed pyuria and many bacteria. BUN 37 , creatinine 1.8. Glucose 438. Anion gap 14. Troponin 0.018 , pro BNP 1056 . EKG revealed sinus rhythm with right bundle branch block . Rapid COVID 19 in ED was positive. CRP less than 0.4 , LDH 162 ,ferritin 377, D-dimer 0.3. Chest x-ray initially revealed no focal consolidation, pneumothorax or pleural fluid collection In emergency department patient received steroids , empiric antibiotics , antitussive and admitted for further management. CONSULTANTS: cashier general Dr. Burden pulmonary Dr. Alarcon ID specialist Dr. Villa floral clerk Dr. Zuniga surgery Dr. [place] pain specialist Dr. Henao [facility] COURSE: Patient admitted to monitored floor to isolation room. Patient completed 10 days of steroids and 5 days of remdesivir. Supplemental oxygen provided and titrated to keep pulse oximetry above 92% . Blood cultures were negative. Urine culture revealed E. coli ESBL. Patient undergone course of antibiotic as per ID specialist recommendation. Anticoagulation with Eliquis provided. Antitussive administered as needed. Patient was followed-up with chest x-ray, which revealed subsequently worsening bilateral infiltrates. CRP tripled over the last 3 days from 16.3 up to 48.3. GI prophylaxis provided. Acute kidney injury was most likely due to dehydration , and resolved with IV fluid. Renal ultrasound revealed no hydronephrosis. Blood pressure was stable ; patient was off any antihypertensive at this time. Blood sugar was managed with sliding scale of insulin . Flomax continued. Supportive care provided. Patient restarted on antibiotics given leukocytosis and fever as per ID specialist recommendation. Patient refused BiPAP and required nonrebreather mask due to worsening hypoxemia. CODE BLUE was called on 09/07/2020. ACLS protocol initiated. Unfortunately all resuscitative efforts appeared to be futile. Patient was pronounced at 5:14 am on 09/07/2020. FINAL DIAGNOSES: COVID-19 pneumonia Acute hypoxemic respiratory failure, requiring nonrebreather mask CATHERINE due to dehydration , probably on chronic kidney disease E. coli ESBL UTI Hypertension Diabetes mellitus BPH CVA with right-sided hemiparesis I have been assigned to dictate discharge summary for this account. Krystal Sherman NP Sep 09, 2020 14:16
--- NOTE | 2020-09-11 02:19 | Cardiology Report ---
APPROVED REPORT EXAM: Two-dimensional and M-mode echocardiogram with Doppler and color Doppler. INDICATION Congestive Heart Failure M-Mode DIMENSIONS IVSd1.0 (0.7-1.1cm) LVDd5.2 (3.5-5.6cm) PWd1.0 (0.7-1.1cm) IVSs1.9 cm LVDs2.5 (2.5-4.0cm) PWs1.3 cm <Conclusion> Technically limited study; all images are taken from subcostal windows. Normal left ventricular chamber size, systolic function and wall motion to extent visualized. Left ventricular ejection fraction estimated to be normal. No left ventricular hypertrophy. No evidence of pericardial effusion. All other cardiac chamber sizes are within normal limits. Focal aortic valve sclerosis with adequate cusp excursion. Thickened mitral valve leaflets with normal excursion. Mitral annulus and aortic root calcification. Normal tricuspid valve structure. IVC is not obtainable. A color flow and spectral Doppler study was performed and revealed: Trace aortic regurgitation. Trace mitral regurgitation. Mitral inflow indicates normal left ventricular diastolic function. Trace tricuspid regurgitation. Tricuspid systolic velocities suggests peak right ventricular systolic pressure of 6 mmHg.
--- NOTE | 2020-09-11 02:21 | Cardiology Report ---
APPROVED REPORT EKG Measurement Heart [id number] <Conclusion> Sinus rhythm with premature atrial complexes Nonspecific intraventricular block Inferior infarct, age undetermined Anterolateral infarct, age undetermined Abnormal ECG
--- NOTE | 2020-09-13 12:13 | Cardiology Report ---
APPROVED REPORT EKG Measurement Heart [id number] <Conclusion> Sinus bradycardia with premature supraventricular complexes Left ventricular hypertrophy with QRS widening Possible Lateral infarct, age undetermined T wave abnormality, consider anterior ischemia Abnormal ECG
== END 2020-09-07 05:14 | disposition expired | DRG 177 ==
LOC: EDBD 17:22 → EMR 17:39 → 2E 18:50 → EDBEDREQ 08-18 09:16 → 2E 08-26 20:56 → ICU 09-06 22:11
PROC: XW033E5 Introduction of Remdesivir Anti-infective into Peripheral Vein, Percutaneous Approach, New Technology Group 5 (ICD-10-PCS; principal; 2020-08-19)
PROC: 0BH17EZ Insertion of Endotracheal Airway into Trachea, Via Natural or Artificial Opening (ICD-10-PCS; 2020-09-07)
DX: U07.1 COVID-19 (principal); J96.01 Acute respiratory failure with hypoxia; J96.02 Acute respiratory failure with hypercapnia; J12.82 Pneumonia due to coronavirus disease 2019; I69.351 Hemiplegia and hemiparesis following cerebral infarction affecting right dominant side; N39.0 Urinary tract infection, site not specified; N17.9 Acute kidney failure, unspecified; E46 Unspecified protein-calorie malnutrition; J90 Pleural effusion, not elsewhere classified; E86.0 Dehydration; N18.9 Chronic kidney disease, unspecified; E11.22 Type 2 diabetes mellitus with diabetic chronic kidney disease; N40.0 Benign prostatic hyperplasia without lower urinary tract symptoms; B96.20 Unspecified Escherichia coli [E. coli] as the cause of diseases classified elsewhere; I45.10 Unspecified right bundle-branch block; I12.9 Hypertensive chronic kidney disease with stage 1 through stage 4 chronic kidney disease, or unspecified chronic kidney disease; M19.90 Unspecified osteoarthritis, unspecified site; Z68.24 Body mass index [BMI] 24.0-24.9, adult; R00.1 Bradycardia, unspecified; D72.810 Lymphocytopenia
CPT/HCPCS: 36415; 71045; 76604; 76770; 80048; 80053; 80061; 80069; 80076; 81001; 81003; 82043; 82248; 82550; 82553; 82728; 82803; 82962; 82977; 83036; 83605; 83615; 83690; 83735; 83880; 83935; 84100; 84134; 84300; 84443; 84484; 84550; 85007; 85025; 85379; 85610; 85651; 85730; 86140; 87040; 87081; 87086; 87181; 89050; 92950; 93005; 93306; 94660; 96365; 96375; 99285; C9399; J0171; J1815; J3490; J7030; J8499; U0002